=== PATIENT | male | born 1955 | race Caucasian/White ===

== ENCOUNTER 2020-02-11 07:25 | Outpatient (REF) | payer OTHER, SELFPAY ==
[2020-02-11 08:21] LABS: Basophils Absolute Auto 0.1 X10*3/uL (0.0-0.2); Basophils Percent Auto 1.5 % (0-2); Eosinophils Absolute Auto 0.2 X10*3/uL (0.0-0.4); Eosinophils Percent Auto 3.6 % (0-4); Hematocrit 40.9 % (42-52); Hemoglobin 14.1 g/dl (14.0-18.0); Imm Gran Abs Auto 0.04 X10*3/uL (0.00-0.03); Imm Gran Pct Auto 0.7 % (0.0-0.4); Lymphocytes Absolute Auto 1.8 X10*3/uL (1.2-4.9); Lymphocytes Percent Auto 31.2 % (20-40); MANUAL DIFF FLAG NO; Mean Corpuscular HGB Conc 34.5 g/dl (31.0-36.0); Mean Platelet Volume 10.4 fL (9.4-12.4); Monocytes Absolute Auto 0.4 X10*3/uL (0.1-1.2); Monocytes Percent Auto 6.9 % (2-11); Neutrophils Absolute Auto 3.3 X10*3/uL (2.0-8.3); Neutrophils Percent Auto 56.1 % (45-73); Platelet Count 244 X10*3/uL (160-400); Red Cell Distribution Width 13.6 % (11.0-16.0); White Blood Count 5.9 X10*3/uL (4.8-10.8)
[2020-02-11 08:44] LABS: Alanine Aminotransferase 25 U/L (0-40); Albumin Level 4.2 g/dL (3.5-5.0); Alkaline Phosphatase 60 U/L (39-117); Anion Gap 10 (12-20); Aspartate Amino Transferase 23 U/L (5-37); Bilirubin Total 1.3 mg/dL (0.0-1.0); Blood Urea Nitrogen 14 mg/dL (9-16); Calcium 8.9 mg/dL (8.4-10.2); Carbon Dioxide 31 mmol/L (22-29); Chloride 106 mmol/L (96-108); Cholesterol 148 mg/dL; Estimated Glomerular Filt Rate > 60; Glucose Fasting 114 mg/dL (60-99); HDL Cholesterol 45 mg/dL; LDL Cholesterol Calculated 74 mg/dl; Potassium 4.5 mmol/l (3.3-5.1); Sodium 142 mmol/L (135-145); Total Protein 6.9 g/dL (6.5-8.0); Triglycerides 149 mg/dL
[2020-02-11 08:45] LABS: B Type Natriuretic Peptide 197 pg/mL (<100)
[2020-02-11 09:08] LABS: T4 Thyroxine 6.4 ug/dL (4.5-12.0); Thyroid Stimulating Hormone 0.45 mIU/mL (0.32-4.0)
[2020-02-11 09:39] LABS: Prostate Specific Antigen Scr 0.87 ng/mL (<0.05-4.0)
[2020-02-13 09:21] LABS: Folate 12.1 ng/mL (> or = 4.0); Vitamin B12 403 pg/mL (200-900)
== END 2020-02-11 07:26 | disposition home or self-care (01) ==
LOC: HO.LAB 07:25
PROVIDERS: PCP Internal Medicine; Visit Provider Internal Medicine
DX: I25.10 Atherosclerotic heart disease of native coronary artery without angina pectoris (principal); J44.9 Chronic obstructive pulmonary disease, unspecified; I10 Essential (primary) hypertension; E78.00 Pure hypercholesterolemia, unspecified; E66.3 Overweight; G25.0 Essential tremor; R73.01 Impaired fasting glucose
CPT/HCPCS: 36415; 80053; 80061; 82607; 82746; 83735; 83880; 84153; 84436; 84443; 85025

== ENCOUNTER → 2020-02-14 08:18 | Outpatient (BNVA) | payer OTHER, SELFPAY | PROVIDERS: PCP Internal Medicine; Visit Provider Internal Medicine | DX: Z95.2 Presence of prosthetic heart valve (principal); Z51.81 Encounter for therapeutic drug level monitoring; Z79.01 Long term (current) use of anticoagulants | CPT/HCPCS: 93793 ==

== ENCOUNTER → 2020-02-21 08:07 | Outpatient (BNVA) | payer OTHER, SELFPAY | PROVIDERS: PCP Internal Medicine; Visit Provider Internal Medicine | DX: Z95.2 Presence of prosthetic heart valve (principal); Z51.81 Encounter for therapeutic drug level monitoring; Z79.01 Long term (current) use of anticoagulants | CPT/HCPCS: Q3014 ==

== ENCOUNTER → 2020-02-28 15:15 | Outpatient (BNVA) | payer OTHER, SELFPAY | PROVIDERS: PCP Internal Medicine; Visit Provider Internal Medicine | DX: Z95.2 Presence of prosthetic heart valve (principal); Z51.81 Encounter for therapeutic drug level monitoring; Z79.01 Long term (current) use of anticoagulants | CPT/HCPCS: 99211 ==

== ENCOUNTER 2020-03-04 08:39 | Outpatient (REF) | payer OTHER, SELFPAY | END 2020-03-04 08:40 | disposition home or self-care (01) | LOC: HO.LAB 08:39 | PROVIDERS: PCP Internal Medicine; Visit Provider Internal Medicine | DX: Z20.828 Contact with and (suspected) exposure to other viral communicable diseases (principal) | CPT/HCPCS: 87635 ==

== ENCOUNTER → 2020-03-13 11:16 | Outpatient (BNVA) | payer OTHER, SELFPAY | PROVIDERS: PCP Internal Medicine; Visit Provider Internal Medicine | DX: Z76.89 Persons encountering health services in other specified circumstances (principal) ==

== ENCOUNTER → 2020-03-20 09:04 | Outpatient (BNVA) | payer OTHER, SELFPAY | PROVIDERS: PCP Internal Medicine; Visit Provider Internal Medicine | DX: Z95.2 Presence of prosthetic heart valve (principal); Z51.81 Encounter for therapeutic drug level monitoring; Z79.01 Long term (current) use of anticoagulants | CPT/HCPCS: Q3014 ==

== ENCOUNTER → 2020-03-27 10:07 | Outpatient (BNVA) | payer OTHER, SELFPAY | PROVIDERS: PCP Internal Medicine; Visit Provider Internal Medicine | DX: Z76.89 Persons encountering health services in other specified circumstances (principal) ==

== ENCOUNTER → 2020-04-03 15:37 | Outpatient (BNVA) | payer OTHER, SELFPAY | PROVIDERS: PCP Internal Medicine; Visit Provider Internal Medicine | DX: Z95.2 Presence of prosthetic heart valve (principal); Z51.81 Encounter for therapeutic drug level monitoring; Z79.01 Long term (current) use of anticoagulants | CPT/HCPCS: Q3014 ==

== ENCOUNTER → 2020-04-10 11:37 | Outpatient (BNVA) | payer OTHER, SELFPAY | PROVIDERS: PCP Internal Medicine; Visit Provider Internal Medicine | DX: Z13.89 Encounter for screening for other disorder (principal) | CPT/HCPCS: Q3014 ==

== ENCOUNTER → 2020-04-17 09:03 | Outpatient (BNVA) | payer OTHER, SELFPAY | PROVIDERS: PCP Internal Medicine; Visit Provider Internal Medicine | DX: Z76.89 Persons encountering health services in other specified circumstances (principal) ==

== ENCOUNTER → 2020-04-24 12:19 | Outpatient (BNVA) | payer OTHER, SELFPAY | PROVIDERS: PCP Internal Medicine; Visit Provider Internal Medicine | DX: Z95.2 Presence of prosthetic heart valve (principal); Z51.81 Encounter for therapeutic drug level monitoring; Z79.01 Long term (current) use of anticoagulants | CPT/HCPCS: 99211 ==

== ENCOUNTER → 2020-05-01 08:41 | Outpatient (BNVA) | payer OTHER, SELFPAY | PROVIDERS: PCP Internal Medicine; Visit Provider Internal Medicine | DX: Z76.89 Persons encountering health services in other specified circumstances (principal) ==

== ENCOUNTER → 2020-05-08 16:00 | Outpatient (BNVA) | payer OTHER, SELFPAY | PROVIDERS: PCP Internal Medicine; Visit Provider Internal Medicine | DX: Z76.89 Persons encountering health services in other specified circumstances (principal) ==

== ENCOUNTER → 2020-05-15 08:21 | Outpatient (BNVA) | payer OTHER, SELFPAY | PROVIDERS: PCP Internal Medicine; Visit Provider Internal Medicine | DX: Z76.89 Persons encountering health services in other specified circumstances (principal) ==

== ENCOUNTER → 2020-05-22 08:53 | Outpatient (BNVA) | payer OTHER, SELFPAY | PROVIDERS: PCP Internal Medicine; Visit Provider Internal Medicine | DX: Z76.89 Persons encountering health services in other specified circumstances (principal) ==

== ENCOUNTER → 2020-05-28 15:28 | Outpatient (BNVA) | payer OTHER, SELFPAY | PROVIDERS: PCP Internal Medicine; Visit Provider Hospitalist ==

== ENCOUNTER → 2020-05-29 09:15 | Outpatient (BNVA) | payer OTHER, SELFPAY | PROVIDERS: PCP Internal Medicine; Visit Provider Internal Medicine | DX: Z95.2 Presence of prosthetic heart valve (principal); Z51.81 Encounter for therapeutic drug level monitoring; Z79.01 Long term (current) use of anticoagulants | CPT/HCPCS: Q3014 ==

== ENCOUNTER → 2020-06-05 08:46 | Outpatient (BNVA) | payer OTHER, SELFPAY | PROVIDERS: PCP Internal Medicine; Visit Provider Internal Medicine | DX: Z95.2 Presence of prosthetic heart valve (principal); Z51.81 Encounter for therapeutic drug level monitoring; Z79.01 Long term (current) use of anticoagulants | CPT/HCPCS: Q3014 ==

== ENCOUNTER → 2020-06-12 08:31 | Outpatient (BNVA) | payer OTHER, SELFPAY | PROVIDERS: PCP Internal Medicine; Visit Provider Internal Medicine | DX: Z95.2 Presence of prosthetic heart valve (principal); Z51.81 Encounter for therapeutic drug level monitoring; Z79.01 Long term (current) use of anticoagulants | CPT/HCPCS: Q3014 ==

== ENCOUNTER 2020-06-13 | Outpatient (REF) | payer OTHER, SELFPAY | END 2020-06-13 00:01 | disposition home or self-care (01) | LOC: HO.VC | PROVIDERS: Visit Provider Internal Medicine | DX: Z23 Encounter for immunization (principal) | CPT/HCPCS: 0011A ==

== ENCOUNTER → 2020-06-19 08:37 | Outpatient (BNVA) | payer OTHER, SELFPAY | PROVIDERS: PCP Internal Medicine; Visit Provider Internal Medicine | DX: Z95.2 Presence of prosthetic heart valve (principal); Z51.81 Encounter for therapeutic drug level monitoring; Z79.01 Long term (current) use of anticoagulants | CPT/HCPCS: 99211 ==

== ENCOUNTER → 2020-06-26 11:26 | Outpatient (BNVA) | payer OTHER, SELFPAY | PROVIDERS: PCP Internal Medicine; Visit Provider Internal Medicine | DX: Z95.2 Presence of prosthetic heart valve (principal); Z51.81 Encounter for therapeutic drug level monitoring; Z79.01 Long term (current) use of anticoagulants | CPT/HCPCS: Q3014 ==

== ENCOUNTER → 2020-07-03 08:30 | Outpatient (BNVA) | payer OTHER, SELFPAY | PROVIDERS: PCP Internal Medicine; Visit Provider Internal Medicine ==

== ENCOUNTER 2020-07-10 | Outpatient (REF) | payer OTHER, SELFPAY | END 2020-07-10 00:01 | disposition home or self-care (01) | LOC: HO.VC | PROVIDERS: Visit Provider Internal Medicine | DX: Z23 Encounter for immunization (principal) | CPT/HCPCS: 0012A ==

== ENCOUNTER → 2020-07-11 14:29 | Outpatient (BNVA) | payer OTHER, SELFPAY | PROVIDERS: PCP Internal Medicine; Visit Provider Internal Medicine | DX: Z95.2 Presence of prosthetic heart valve (principal); Z51.81 Encounter for therapeutic drug level monitoring; Z79.01 Long term (current) use of anticoagulants | CPT/HCPCS: Q3014 ==

== ENCOUNTER → 2020-07-17 14:02 | Outpatient (BNVA) | payer OTHER, SELFPAY | PROVIDERS: PCP Internal Medicine; Visit Provider Internal Medicine ==

== ENCOUNTER → 2020-07-24 10:09 | Outpatient (BNVA) | payer OTHER, SELFPAY | PROVIDERS: PCP Internal Medicine; Visit Provider Internal Medicine ==

== ENCOUNTER → 2020-07-31 09:33 | Outpatient (BNVA) | payer OTHER, SELFPAY | PROVIDERS: PCP Internal Medicine; Visit Provider Internal Medicine ==

== ENCOUNTER → 2020-08-07 11:39 | Outpatient (BNVA) | payer OTHER, SELFPAY | PROVIDERS: PCP Internal Medicine; Visit Provider Internal Medicine ==

== ENCOUNTER → 2020-08-13 14:54 | Outpatient (BNVA) | payer OTHER, SELFPAY | PROVIDERS: PCP Internal Medicine; Visit Provider Internal Medicine | DX: I35.8 Other nonrheumatic aortic valve disorders (principal); Z79.01 Long term (current) use of anticoagulants; Z51.81 Encounter for therapeutic drug level monitoring | CPT/HCPCS: 85610; 99211 ==

== ENCOUNTER → 2020-08-21 09:43 | Outpatient (BNVA) | payer OTHER, SELFPAY | PROVIDERS: PCP Internal Medicine; Visit Provider Internal Medicine ==

== ENCOUNTER → 2020-08-28 12:00 | Outpatient (BNVA) | payer OTHER, SELFPAY | PROVIDERS: PCP Internal Medicine; Visit Provider Internal Medicine ==

== ENCOUNTER → 2020-09-04 10:33 | Outpatient (BNVA) | payer OTHER, SELFPAY | PROVIDERS: PCP Internal Medicine; Visit Provider Internal Medicine ==

== ENCOUNTER → 2020-09-11 08:13 | Outpatient (BNVA) | payer OTHER, SELFPAY | PROVIDERS: PCP Internal Medicine; Visit Provider Internal Medicine ==

== ENCOUNTER → 2020-09-18 11:14 | Outpatient (BNVA) | payer OTHER, SELFPAY | PROVIDERS: PCP Internal Medicine; Visit Provider Internal Medicine ==

== ENCOUNTER 2020-09-22 07:57 | Outpatient (REF) | payer OTHER, SELFPAY ==
[2020-09-22 08:24] LABS: MANUAL DIFF FLAG NO
[2020-09-22 08:48] LABS: Alanine Aminotransferase 24 U/L (0-40); Albumin Level 4.2 g/dL (3.5-5.0); Alkaline Phosphatase 66 U/L (39-117); Anion Gap 13 (12-20); Aspartate Amino Transferase 21 U/L (5-37); Bilirubin Total 1.4 mg/dL (0.0-1.0); Blood Urea Nitrogen 17 mg/dL (9-16); Calcium 9.2 mg/dL (8.4-10.2); Carbon Dioxide 28 mmol/L (22-29); Chloride 103 mmol/L (96-108); Cholesterol 146 mg/dL; Estimated Glomerular Filt Rate > 60; Glucose Random 114 mg/dL (60-115); HDL Cholesterol 42 mg/dL; LDL Cholesterol Calculated 75 mg/dl; Potassium 4.2 mmol/L (3.3-5.1); Sodium 140 mmol/L (135-145); Total Protein 7.1 g/dL (6.5-8.0); Triglycerides 146 mg/dL
[2020-09-22 08:50] LABS: B Type Natriuretic Peptide 189 pg/mL (<100)
[2020-09-22 09:02] LABS: Basophils Absolute Auto 0.1 X10*3/uL (0.0-0.2); Basophils Percent Auto 1.6 % (0-2); Eosinophils Absolute Auto 0.3 X10*3/uL (0.0-0.4); Eosinophils Percent Auto 4.2 % (0-4); Hematocrit 40.7 % (42-52); Hemoglobin 14.3 g/dl (14.0-18.0); Imm Gran Abs Auto 0.02 X10*3/uL (0.00-0.03); Imm Gran Pct Auto 0.3 % (0.0-0.4); Lymphocytes Percent Auto 31.7 % (20-40); Mean Corpuscular HGB Conc 35.1 g/dl (31.0-36.0); Mean Corpuscular Hemoglobin 31.9 pg (27.0-33.0); Mean Corpuscular Volume 90.8 fL (80-98); Mean Platelet Volume 10.7 fL (9.4-12.4); Monocytes Absolute Auto 0.5 X10*3/uL (0.1-1.2); Monocytes Percent Auto 7.5 % (2-11); Neutrophils Absolute Auto 3.5 X10*3/uL (2.0-8.3); Neutrophils Percent Auto 54.7 % (45-73); Platelet Count 251 X10*3/uL (160-400); Red Blood Count 4.48 X10*6/uL (4.60-5.80); Red Cell Distribution Width 13.8 % (11.0-16.0); White Blood Count 6.4 X10*3/uL (4.8-10.8)
[2020-09-22 09:13] LABS: Free T4 (Free Thyroxine) 0.92 ng/dL (0.71-1.85); Thyroid Stimulating Hormone 0.32 uIU/mL (0.32-4.0)
[2020-09-24 04:19] LABS: Vitamin B12 509 pg/mL (200-900)
== END 2020-09-22 07:58 | disposition home or self-care (01) ==
LOC: HO.LAB 07:57
PROVIDERS: PCP Internal Medicine; Visit Provider Internal Medicine
DX: I10 Essential (primary) hypertension (principal); I25.10 Atherosclerotic heart disease of native coronary artery without angina pectoris; E78.00 Pure hypercholesterolemia, unspecified; Z95.2 Presence of prosthetic heart valve
CPT/HCPCS: 36415; 80053; 80061; 82306; 82607; 82746; 83880; 84439; 84443; 85025

== ENCOUNTER → 2020-09-25 09:35 | Outpatient (BNVA) | payer OTHER, SELFPAY | PROVIDERS: PCP Internal Medicine; Visit Provider Internal Medicine ==

== ENCOUNTER → 2020-10-02 08:38 | Outpatient (BNVA) | payer OTHER, SELFPAY | PROVIDERS: PCP Internal Medicine; Visit Provider Internal Medicine ==

== ENCOUNTER → 2020-10-09 09:33 | Outpatient (BNVA) | payer OTHER, SELFPAY | PROVIDERS: PCP Internal Medicine; Visit Provider Internal Medicine ==

== ENCOUNTER → 2020-10-16 08:59 | Outpatient (BNVA) | payer OTHER, SELFPAY | PROVIDERS: PCP Internal Medicine; Visit Provider Internal Medicine ==

== ENCOUNTER → 2020-10-23 09:27 | Outpatient (BNVA) | payer OTHER, SELFPAY | PROVIDERS: PCP Internal Medicine; Visit Provider Internal Medicine ==

== ENCOUNTER → 2020-10-30 12:00 | Outpatient (BNVA) | payer OTHER, SELFPAY | PROVIDERS: PCP Internal Medicine; Visit Provider Internal Medicine ==

== ENCOUNTER → 2020-11-06 08:28 | Outpatient (BNVA) | payer OTHER, SELFPAY | PROVIDERS: PCP Internal Medicine; Visit Provider Internal Medicine ==

== ENCOUNTER → 2020-11-13 09:14 | Outpatient (BNVA) | payer OTHER, SELFPAY | PROVIDERS: PCP Internal Medicine; Visit Provider Internal Medicine ==

== ENCOUNTER → 2020-11-20 09:02 | Outpatient (BNVA) | payer OTHER, SELFPAY | PROVIDERS: PCP Internal Medicine; Visit Provider Internal Medicine ==

== ENCOUNTER → 2020-11-27 11:25 | Outpatient (BNVA) | payer OTHER, SELFPAY | PROVIDERS: PCP Internal Medicine; Visit Provider Internal Medicine ==

== ENCOUNTER → 2020-12-04 10:24 | Outpatient (BNVA) | payer OTHER, SELFPAY | PROVIDERS: PCP Internal Medicine; Visit Provider Internal Medicine ==

== ENCOUNTER → 2020-12-11 08:46 | Outpatient (BNVA) | payer OTHER, SELFPAY | PROVIDERS: PCP Internal Medicine; Visit Provider Internal Medicine ==

== ENCOUNTER → 2020-12-18 09:13 | Outpatient (BNVA) | payer OTHER, SELFPAY | PROVIDERS: PCP Internal Medicine; Visit Provider Internal Medicine ==

== ENCOUNTER → 2020-12-25 09:46 | Outpatient (BNVA) | payer OTHER, SELFPAY | PROVIDERS: PCP Internal Medicine; Visit Provider Internal Medicine ==

== ENCOUNTER → 2021-01-01 11:37 | Outpatient (BNVA) | payer OTHER, SELFPAY | PROVIDERS: PCP Internal Medicine; Visit Provider Internal Medicine ==

== ENCOUNTER → 2021-01-08 09:14 | Outpatient (BNVA) | payer OTHER, SELFPAY | PROVIDERS: PCP Internal Medicine; Visit Provider Internal Medicine ==

== ENCOUNTER → 2021-01-15 09:43 | Outpatient (BNVA) | payer OTHER, SELFPAY | PROVIDERS: PCP Internal Medicine; Visit Provider Internal Medicine ==

== ENCOUNTER → 2021-01-22 08:50 | Outpatient (BNVA) | payer OTHER, SELFPAY | PROVIDERS: PCP Internal Medicine; Visit Provider Internal Medicine | DX: Z95.2 Presence of prosthetic heart valve (principal) | CPT/HCPCS: Q3014 ==

== ENCOUNTER → 2021-01-29 11:24 | Outpatient (BNVA) | payer OTHER, SELFPAY | PROVIDERS: PCP Internal Medicine; Visit Provider Internal Medicine ==

== ENCOUNTER → 2021-02-05 11:48 | Outpatient (BNVA) | payer OTHER, SELFPAY | PROVIDERS: PCP Internal Medicine; Visit Provider Internal Medicine ==

== ENCOUNTER → 2021-02-12 09:10 | Outpatient (BNVA) | payer OTHER, SELFPAY | PROVIDERS: PCP Internal Medicine; Visit Provider Internal Medicine ==

== ENCOUNTER → 2021-02-19 15:33 | Outpatient (BNVA) | payer OTHER, SELFPAY | PROVIDERS: PCP Internal Medicine; Visit Provider Internal Medicine ==

== ENCOUNTER 2021-02-23 10:26 | Outpatient (REF) | payer OTHER, SELFPAY ==
[2021-02-23 11:48] LABS: Uric Acid 8.1 mg/dL (3.4-7.0)
[2021-02-23 12:10] LABS: Ferritin 144 ng/mL (20-250); Free T4 (Free Thyroxine) 0.93 ng/dL (0.71-1.85); Prostate Specific Antigen Scr 0.91 ng/mL (<0.05-4.0); Vitamin D 25-OH Total 28.9 ng/mL (>30)
== END 2021-02-23 10:27 | disposition home or self-care (01) ==
LOC: HO.LAB 10:26
PROVIDERS: PCP Internal Medicine; Visit Provider Podiatrist
DX: I25.10 Atherosclerotic heart disease of native coronary artery without angina pectoris (principal); M10.9 Gout, unspecified; Z12.5 Encounter for screening for malignant neoplasm of prostate
CPT/HCPCS: 36415; 82306; 82728; 84153; 84439; 84443; 84550

== ENCOUNTER → 2021-02-26 09:56 | Outpatient (BNVA) | payer OTHER, SELFPAY | PROVIDERS: PCP Internal Medicine; Visit Provider Internal Medicine | DX: Z95.2 Presence of prosthetic heart valve (principal) | CPT/HCPCS: Q3014 ==

== ENCOUNTER → 2021-03-12 10:06 | Outpatient (BNVA) | payer OTHER, SELFPAY | PROVIDERS: PCP Internal Medicine; Visit Provider Internal Medicine | DX: Z95.2 Presence of prosthetic heart valve (principal); Z51.81 Encounter for therapeutic drug level monitoring; Z79.01 Long term (current) use of anticoagulants | CPT/HCPCS: Q3014 ==

== ENCOUNTER → 2021-03-19 08:59 | Outpatient (BNVA) | payer OTHER, SELFPAY | PROVIDERS: PCP Internal Medicine; Visit Provider Internal Medicine ==

== ENCOUNTER → 2021-03-26 11:52 | Outpatient (BNVA) | payer OTHER, SELFPAY | PROVIDERS: PCP Internal Medicine; Visit Provider Internal Medicine ==

== ENCOUNTER 2021-03-30 07:43 | Outpatient (REF) | payer OTHER, SELFPAY ==
[2021-03-30 07:50] LABS: MANUAL DIFF FLAG NO
[2021-03-30 08:54] LABS: Basophils Absolute Auto 0.1 X10*3/uL (0.0-0.2); Eosinophils Absolute Auto 0.2 X10*3/uL (0.0-0.4); Eosinophils Percent Auto 2.9 % (0-4); Estimated Average Glucose 105 mg/dL; Hematocrit 39.8 % (42.0-52.0); Hemoglobin 13.7 g/dl (14.0-18.0); Hemoglobin A1c % 5.3 %; Imm Gran Abs Auto 0.02 X10*3/uL (0.00-0.03); Imm Gran Pct Auto 0.4 % (0.0-0.4); Immature Retic Fraction 8.1 % (2.3-13.4); Lymphocytes Absolute Auto 1.9 X10*3/uL (1.2-4.9); Lymphocytes Percent Auto 36.3 % (20-40); Mean Corpuscular HGB Conc 34.4 g/dl (31.0-36.0); Mean Corpuscular Hemoglobin 31.7 pg (27.0-33.0); Mean Corpuscular Volume 92.1 fL (80.0-98.0); Mean Platelet Volume 10.7 fL (9.4-12.4); Monocytes Absolute Auto 0.4 X10*3/uL (0.1-1.2); NRBC Pct Auto 0.4 /100WBC (0.0-0.2); Neutrophils Absolute Auto 2.7 x10*3/uL (2.0-8.3); Neutrophils Percent Auto 51.4 % (45-73); Platelet Count 234 X10*3/uL (160-400); Red Blood Count 4.32 X10*6/uL (4.60-5.80); Red Cell Distribution Width 14.2 % (11.0-16.0); Retic HGB Equivalent 34.5 pg (30.0-35.0); Reticulocytes Absolute 0.085 X10*6/uL (0.026-0.095); White Blood Count 5.2 X10*3/uL (4.8-10.8)
[2021-03-30 09:11] LABS: Alanine Aminotransferase 18 U/L (0-40); Albumin Level 4.1 g/dL (3.5-5.0); Alkaline Phosphatase 62 U/L (39-117); Anion Gap 12 (12-20); Aspartate Amino Transferase 18 U/L (5-37); Bilirubin Total 1.8 mg/dL (0.0-1.0); Blood Urea Nitrogen 16 mg/dL (9-16); Carbon Dioxide 30 mmol/L (22-29); Chloride 102 mmol/L (96-108); Cholesterol 145 mg/dL; Estimated Glomerular Filt Rate > 60; Glucose Random 109 mg/dL (60-115); HDL Cholesterol 41 mg/dL; Iron 82 mcg/dL (45-160); LDL Cholesterol Calculated 73 mg/dl; Percent Iron Saturation 27 % (15-50); Potassium 4.5 mmol/L (3.3-5.1); Sodium 139 mmol/L (135-145); Total Iron Binding Capacity 302 mcg/dL (228-428); Total Protein 6.6 g/dL (6.5-8.0); Triglycerides 159 mg/dL; Unsaturated Iron Binding 220 ug/dL
[2021-04-01 05:02] LABS: Folate 11.8 ng/mL (> or = 4.0); Vitamin B12 388 pg/mL (200-900)
== END 2021-03-30 07:44 | disposition home or self-care (01) ==
LOC: HO.LAB 07:43
PROVIDERS: PCP Internal Medicine; Visit Provider Internal Medicine
DX: I25.10 Atherosclerotic heart disease of native coronary artery without angina pectoris (principal); E78.00 Pure hypercholesterolemia, unspecified
CPT/HCPCS: 36415; 80053; 80061; 82607; 82746; 83036; 83540; 85025; 85045

== ENCOUNTER → 2021-04-02 11:15 | Outpatient (BNVA) | payer OTHER, SELFPAY | PROVIDERS: PCP Internal Medicine; Visit Provider Internal Medicine ==

== ENCOUNTER → 2021-04-16 10:48 | Outpatient (BNVA) | payer OTHER, SELFPAY | PROVIDERS: PCP Internal Medicine; Visit Provider Internal Medicine ==

== ENCOUNTER → 2021-04-23 09:57 | Outpatient (BNVA) | payer OTHER, SELFPAY | PROVIDERS: PCP Internal Medicine; Visit Provider Internal Medicine ==

== ENCOUNTER → 2021-04-30 13:10 | Outpatient (BNVA) | payer OTHER, SELFPAY | PROVIDERS: PCP Internal Medicine; Visit Provider Internal Medicine ==

== ENCOUNTER → 2021-05-07 08:59 | Outpatient (BNVA) | payer OTHER, SELFPAY | PROVIDERS: PCP Internal Medicine; Visit Provider Internal Medicine | DX: Z95.2 Presence of prosthetic heart valve (principal); Z51.81 Encounter for therapeutic drug level monitoring; Z79.01 Long term (current) use of anticoagulants | CPT/HCPCS: Q3014 ==

== ENCOUNTER → 2021-05-14 16:15 | Outpatient (BNVA) | payer OTHER, SELFPAY | PROVIDERS: PCP Internal Medicine; Visit Provider Internal Medicine | DX: Z95.2 Presence of prosthetic heart valve (principal); Z79.01 Long term (current) use of anticoagulants; Z51.81 Encounter for therapeutic drug level monitoring | CPT/HCPCS: Q3014 ==

== ENCOUNTER → 2021-05-21 08:52 | Outpatient (BNVA) | payer OTHER, SELFPAY | PROVIDERS: PCP Internal Medicine; Visit Provider Internal Medicine ==

== ENCOUNTER → 2021-05-28 09:05 | Outpatient (BNVA) | payer OTHER, SELFPAY | PROVIDERS: PCP Internal Medicine; Visit Provider Internal Medicine ==

== ENCOUNTER → 2021-06-03 14:23 | Outpatient (BNVA) | payer OTHER, SELFPAY | PROVIDERS: PCP Internal Medicine; Visit Provider Physician Assistant Medical | DX: S16.1XXA Strain of muscle, fascia and tendon at neck level, initial encounter (principal); S46.819A Strain of other muscles, fascia and tendons at shoulder and upper arm level, unspecified arm, initial encounter; S06.9X0A Unspecified intracranial injury without loss of consciousness, initial encounter; V43.02XA Car driver injured in collision with other type car in nontraffic accident, initial encounter | CPT/HCPCS: 70450; 99203 ==

== ENCOUNTER → 2021-06-04 08:43 | Outpatient (BNVA) | payer OTHER, SELFPAY | PROVIDERS: PCP Internal Medicine; Visit Provider Internal Medicine ==

== ENCOUNTER → 2021-06-05 10:37 | Outpatient (BNVA) | payer OTHER, SELFPAY | PROVIDERS: PCP Internal Medicine; Visit Provider Physician Assistant Medical | DX: S06.0X0A Concussion without loss of consciousness, initial encounter (principal); V89.0XXA Person injured in unspecified motor-vehicle accident, nontraffic, initial encounter | CPT/HCPCS: 99213 ==

== ENCOUNTER → 2021-06-13 09:39 | Outpatient (BNVA) | payer OTHER, SELFPAY | PROVIDERS: PCP Internal Medicine; Visit Provider Internal Medicine ==

== ENCOUNTER → 2021-06-18 09:45 | Outpatient (BNVA) | payer OTHER, SELFPAY | PROVIDERS: PCP Internal Medicine; Visit Provider Internal Medicine ==

== ENCOUNTER → 2021-06-25 12:24 | Outpatient (BNVA) | payer OTHER, SELFPAY | PROVIDERS: PCP Internal Medicine; Visit Provider Internal Medicine ==

== ENCOUNTER → 2021-07-02 11:05 | Outpatient (BNVA) | payer OTHER, SELFPAY | PROVIDERS: PCP Internal Medicine; Visit Provider Internal Medicine | DX: Z95.2 Presence of prosthetic heart valve (principal); Z51.81 Encounter for therapeutic drug level monitoring; Z79.01 Long term (current) use of anticoagulants | CPT/HCPCS: Q3014 ==

== ENCOUNTER → 2021-07-09 08:33 | Outpatient (BNVA) | payer OTHER, SELFPAY | PROVIDERS: PCP Internal Medicine; Visit Provider Internal Medicine | DX: Z95.2 Presence of prosthetic heart valve (principal); Z51.81 Encounter for therapeutic drug level monitoring; Z79.01 Long term (current) use of anticoagulants | CPT/HCPCS: Q3014 ==

== ENCOUNTER → 2021-07-16 08:37 | Outpatient (BNVA) | payer OTHER, SELFPAY | PROVIDERS: PCP Internal Medicine; Visit Provider Internal Medicine ==

== ENCOUNTER → 2021-07-23 12:36 | Outpatient (BNVA) | payer OTHER, SELFPAY | PROVIDERS: PCP Internal Medicine; Visit Provider Internal Medicine | DX: Z13.89 Encounter for screening for other disorder (principal) ==

== ENCOUNTER → 2021-07-30 10:34 | Outpatient (BNVA) | payer OTHER, SELFPAY | PROVIDERS: PCP Internal Medicine; Visit Provider Internal Medicine | DX: Z95.2 Presence of prosthetic heart valve (principal); Z51.81 Encounter for therapeutic drug level monitoring; Z79.01 Long term (current) use of anticoagulants | CPT/HCPCS: Q3014 ==

== ENCOUNTER → 2021-08-07 15:22 | Outpatient (BNVA) | payer OTHER, SELFPAY | PROVIDERS: PCP Internal Medicine; Visit Provider Internal Medicine | DX: Z13.89 Encounter for screening for other disorder (principal) ==

== ENCOUNTER → 2021-08-13 08:32 | Outpatient (BNVA) | payer OTHER, SELFPAY | PROVIDERS: PCP Internal Medicine; Visit Provider Internal Medicine | DX: Z13.89 Encounter for screening for other disorder (principal) ==

== ENCOUNTER → 2021-08-20 11:15 | Outpatient (BNVA) | payer OTHER, SELFPAY | PROVIDERS: PCP Internal Medicine; Visit Provider Internal Medicine | DX: Z13.89 Encounter for screening for other disorder (principal) ==

== ENCOUNTER → 2021-08-27 12:54 | Outpatient (BNVA) | payer OTHER, SELFPAY | PROVIDERS: PCP Internal Medicine; Visit Provider Internal Medicine | DX: Z13.89 Encounter for screening for other disorder (principal) ==

== ENCOUNTER → 2021-09-03 10:30 | Outpatient (BNVA) | payer OTHER, SELFPAY | PROVIDERS: PCP Internal Medicine; Visit Provider Internal Medicine | DX: Z13.89 Encounter for screening for other disorder (principal) ==

== ENCOUNTER → 2021-09-10 12:46 | Outpatient (BNVA) | payer OTHER, SELFPAY | PROVIDERS: PCP Internal Medicine; Visit Provider Internal Medicine | DX: Z13.89 Encounter for screening for other disorder (principal) ==

== ENCOUNTER → 2021-09-17 08:20 | Outpatient (BNVA) | payer OTHER, MEDICARE, SELFPAY | PROVIDERS: PCP Internal Medicine; Visit Provider Internal Medicine | DX: Z13.89 Encounter for screening for other disorder (principal) ==

== ENCOUNTER → 2021-09-20 14:08 | Outpatient (BNVA) | payer OTHER, MEDICARE, SELFPAY | PROVIDERS: PCP Internal Medicine; Visit Provider Nurse Practitioner Family | DX: G25.0 Essential tremor (principal) ==

== ENCOUNTER → 2021-09-24 10:05 | Outpatient (BNVA) | payer OTHER, MEDICARE, SELFPAY | PROVIDERS: PCP Internal Medicine; Visit Provider Internal Medicine | DX: Z13.89 Encounter for screening for other disorder (principal) ==

== ENCOUNTER → 2021-10-01 14:20 | Outpatient (BNVA) | payer OTHER, MEDICARE, SELFPAY | PROVIDERS: PCP Internal Medicine; Visit Provider Internal Medicine | DX: Z95.2 Presence of prosthetic heart valve (principal); Z79.01 Long term (current) use of anticoagulants; Z51.81 Encounter for therapeutic drug level monitoring | CPT/HCPCS: 85610; 99211 ==

== ENCOUNTER → 2021-10-08 08:50 | Outpatient (BNVA) | payer OTHER, MEDICARE, SELFPAY | PROVIDERS: PCP Internal Medicine; Visit Provider Internal Medicine | DX: Z13.89 Encounter for screening for other disorder (principal) ==

== ENCOUNTER → 2021-10-15 09:42 | Outpatient (BNVA) | payer OTHER, MEDICARE, SELFPAY | PROVIDERS: PCP Internal Medicine; Visit Provider Internal Medicine | DX: Z79.01 Long term (current) use of anticoagulants (principal) ==

== ENCOUNTER → 2021-10-29 10:11 | Outpatient (BNVA) | payer OTHER, MEDICARE, SELFPAY | PROVIDERS: PCP Internal Medicine; Visit Provider Internal Medicine | DX: Z95.2 Presence of prosthetic heart valve (principal); Z51.81 Encounter for therapeutic drug level monitoring; Z79.01 Long term (current) use of anticoagulants | CPT/HCPCS: Q3014 ==

== ENCOUNTER 2022-03-26 07:41 | Outpatient (REF) | payer OTHER, MEDICARE, SELFPAY ==
[2022-03-26 07:52] LABS: MANUAL DIFF FLAG NO
[2022-03-26 08:30] LABS: Basophils Absolute Auto 0.2 X10*3/uL (0.0-0.2); Basophils Percent Auto 2.2 % (0-2); Eosinophils Absolute Auto 0.3 X10*3/uL (0.0-0.4); Eosinophils Percent Auto 4.6 % (0-4); Hematocrit 40.1 % (42.0-52.0); Hemoglobin 13.8 g/dl (14.0-18.0); Imm Gran Abs Auto 0.03 X10*3/uL (0.00-0.03); Imm Gran Pct Auto 0.4 % (0.0-0.4); Lymphocytes Absolute Auto 1.9 X10*3/uL (1.2-4.9); Lymphocytes Percent Auto 27.7 % (20-40); Mean Corpuscular HGB Conc 34.4 g/dl (31.0-36.0); Mean Platelet Volume 10.3 fL (9.4-12.4); Monocytes Absolute Auto 0.5 X10*3/uL (0.1-1.2); Monocytes Percent Auto 7.1 % (2-11); Neutrophils Absolute Auto 3.9 x10*3/uL (2.0-8.3); Platelet Count 286 X10*3/uL (160-400); Red Blood Count 4.31 X10*6/uL (4.60-5.80); White Blood Count 6.7 X10*3/uL (4.8-10.8)
[2022-03-26 08:53] LABS: Alanine Aminotransferase 8 U/L (0-40); Albumin Level 4.5 g/dL (3.5-5.0); Alkaline Phosphatase 69 U/L (39-117); Anion Gap 14 (12-20); Aspartate Amino Transferase 25 U/L (5-37); Bilirubin Total 1.9 mg/dL (0.0-1.0); Blood Urea Nitrogen 17 mg/dL (9-16); Calcium 9.4 mg/dL (8.4-10.2); Carbon Dioxide 30 mmol/L (22-29); Chloride 100 mmol/L (96-108); Estimated Glomerular Filt Rate > 60; Glucose Random 111 mg/dL (60-115); Potassium 3.9 mmol/L (3.3-5.1); Sodium 140 mmol/L (135-145); Total Protein 7.4 g/dL (6.5-8.0)
[2022-03-26 08:59] LABS: B Type Natriuretic Peptide 214 pg/mL (<100)
[2022-03-26 09:30] LABS: Estimated Average Glucose 103 mg/dL; Hemoglobin A1c % 5.2 %
== END 2022-03-26 07:42 | disposition home or self-care (01) ==
LOC: HO.LAB 07:41
PROVIDERS: PCP Internal Medicine; Visit Provider Internal Medicine
DX: I25.10 Atherosclerotic heart disease of native coronary artery without angina pectoris (principal)
CPT/HCPCS: 36415; 80053; 83036; 83880; 85025

== ENCOUNTER → 2022-04-29 10:00 | Outpatient (BNVA) | payer OTHER, MEDICARE, SELFPAY | PROVIDERS: PCP Internal Medicine; Visit Provider Internal Medicine | DX: Z79.01 Long term (current) use of anticoagulants (principal) ==

== ENCOUNTER → 2022-05-06 12:49 | Outpatient (BNVA) | payer OTHER, MEDICARE, SELFPAY | PROVIDERS: PCP Nurse Practitioner Family; Visit Provider Internal Medicine | DX: Z79.01 Long term (current) use of anticoagulants (principal) ==

== ENCOUNTER → 2022-05-13 12:23 | Outpatient (BNVA) | payer OTHER, MEDICARE, SELFPAY | PROVIDERS: PCP Nurse Practitioner Family; Visit Provider Internal Medicine | DX: Z79.01 Long term (current) use of anticoagulants (principal) ==

== ENCOUNTER → 2022-05-20 08:45 | Outpatient (BNVA) | payer OTHER, MEDICARE, SELFPAY | PROVIDERS: PCP Nurse Practitioner Family; Visit Provider Internal Medicine | DX: Z79.01 Long term (current) use of anticoagulants (principal) ==

== ENCOUNTER → 2022-05-27 14:23 | Outpatient (BNVA) | payer OTHER, MEDICARE, SELFPAY | PROVIDERS: PCP Nurse Practitioner Family; Visit Provider Internal Medicine | DX: Z79.01 Long term (current) use of anticoagulants (principal) ==

== ENCOUNTER → 2022-06-03 09:30 | Outpatient (BNVA) | payer OTHER, MEDICARE, SELFPAY | PROVIDERS: PCP Nurse Practitioner Family; Visit Provider Internal Medicine | DX: Z79.01 Long term (current) use of anticoagulants (principal) ==

== ENCOUNTER → 2022-06-10 09:09 | Outpatient (BNVA) | payer OTHER, MEDICARE, SELFPAY | PROVIDERS: PCP Nurse Practitioner Family; Visit Provider Internal Medicine | DX: Z79.01 Long term (current) use of anticoagulants (principal) ==

== ENCOUNTER → 2022-06-17 14:37 | Outpatient (BNVA) | payer OTHER, MEDICARE, SELFPAY | PROVIDERS: PCP Nurse Practitioner Family; Visit Provider Internal Medicine | DX: Z13.89 Encounter for screening for other disorder (principal) ==

== ENCOUNTER → 2022-06-24 08:20 | Outpatient (BNVA) | payer OTHER, MEDICARE, SELFPAY | PROVIDERS: PCP Nurse Practitioner Family; Visit Provider Internal Medicine | DX: Z79.01 Long term (current) use of anticoagulants (principal) ==

== ENCOUNTER → 2022-07-01 13:59 | Outpatient (BNVA) | payer OTHER, MEDICARE, SELFPAY | PROVIDERS: PCP Nurse Practitioner Family; Visit Provider Internal Medicine | DX: Z79.01 Long term (current) use of anticoagulants (principal) ==

== ENCOUNTER → 2022-07-08 09:11 | Outpatient (BNVA) | payer OTHER, MEDICARE, SELFPAY | PROVIDERS: PCP Nurse Practitioner Family; Visit Provider Internal Medicine | DX: Z79.01 Long term (current) use of anticoagulants (principal) ==

== ENCOUNTER → 2022-07-15 09:09 | Outpatient (BNVA) | payer OTHER, MEDICARE, SELFPAY | PROVIDERS: PCP Internal Medicine; Visit Provider Internal Medicine | DX: Z13.89 Encounter for screening for other disorder (principal) ==

== ENCOUNTER → 2022-07-22 10:14 | Outpatient (BNVA) | payer OTHER, MEDICARE, SELFPAY | PROVIDERS: PCP Internal Medicine; Visit Provider Internal Medicine | DX: Z13.89 Encounter for screening for other disorder (principal) ==

== ENCOUNTER → 2022-07-29 11:26 | Outpatient (BNVA) | payer OTHER, MEDICARE, SELFPAY | PROVIDERS: PCP Internal Medicine; Visit Provider Internal Medicine | DX: Z13.89 Encounter for screening for other disorder (principal) ==

== ENCOUNTER → 2022-08-05 09:07 | Outpatient (BNVA) | payer OTHER, MEDICARE, SELFPAY | PROVIDERS: PCP Internal Medicine; Visit Provider Internal Medicine | DX: Z79.01 Long term (current) use of anticoagulants (principal) ==

== ENCOUNTER → 2022-08-12 08:52 | Outpatient (BNVA) | payer OTHER, MEDICARE, SELFPAY | PROVIDERS: PCP Internal Medicine; Visit Provider Internal Medicine | DX: Z79.01 Long term (current) use of anticoagulants (principal) ==

== ENCOUNTER → 2022-08-19 08:47 | Outpatient (BNVA) | payer OTHER, MEDICARE, SELFPAY | PROVIDERS: PCP Internal Medicine; Visit Provider Internal Medicine | DX: Z79.01 Long term (current) use of anticoagulants (principal) ==

== ENCOUNTER 2022-08-21 12:42 | Outpatient (REF) | payer OTHER, MEDICARE, SELFPAY ==
--- NOTE | 2022-08-21 16:54 | PFT_ITS ---
INDICATION: COPD. SPIROMETRY: FEV1 to FVC of 78% with an FEV1 of 1.48 L, which is 39% predicted and FVC of 1.91 L, which is 38% predicted. No significant response to bronchodilator is noted. The maximum voluntary ventilation of 36% predicted. LUNG VOLUMES: Total lung capacity 55% predicted with an expiratory residual volume of 5% predicted. DIFFUSION CAPACITY: DLCO 59% predicted. COMPARISON: PFTs from 2016. INTERPRETATION: No definitive obstructive ventilatory defect. No significant response to bronchodilator is noted. There is a severe decrease in maximum voluntary ventilation secondary to likely deconditioning, although cannot rule out neuromuscular conditions. The patient does have a restrictive ventilatory defect consistent with [id number] restrictive lung disease, in part due to an elevated BMI with a decrease in the expiratory residual volume to 5% predicted. The patient does have a moderate diffusion impairment, although it does correct to 121% predicted when correcting for the alveolar volume suggesting that is hypo-expansion related. When compared to 2016, there is a significant decrease in the FVC, significant decrease in the FEV1, a trend decrease in the total lung capacity, and a significant decrease in the diffusion capacity. Clinical correlation warranted. Donald Menendez MD MR/MODL / [id number]
== END 2022-08-21 12:43 | disposition home or self-care (01) ==
LOC: HO.RESP 12:42
PROVIDERS: PCP Internal Medicine; Visit Provider Hospitalist
DX: J44.9 Chronic obstructive pulmonary disease, unspecified (principal); R91.8 Other nonspecific abnormal finding of lung field
CPT/HCPCS: 94060; 94727; 94729

== ENCOUNTER → 2022-08-26 12:01 | Outpatient (BNVA) | payer OTHER, MEDICARE, SELFPAY | PROVIDERS: PCP Internal Medicine; Visit Provider Internal Medicine | DX: Z79.01 Long term (current) use of anticoagulants (principal) ==

== ENCOUNTER → 2022-09-02 12:59 | Outpatient (BNVA) | payer MEDICARE, SELFPAY | PROVIDERS: PCP Internal Medicine; Visit Provider Internal Medicine | DX: Z95.2 Presence of prosthetic heart valve (principal); Z79.01 Long term (current) use of anticoagulants; Z51.81 Encounter for therapeutic drug level monitoring | CPT/HCPCS: 99212 ==

== ENCOUNTER → 2022-09-09 11:03 | Outpatient (BNVA) | payer MEDICARE, SELFPAY | PROVIDERS: PCP Internal Medicine; Visit Provider Internal Medicine ==

== ENCOUNTER → 2022-09-16 08:26 | Outpatient (BNVA) | payer MEDICARE, SELFPAY | PROVIDERS: PCP Internal Medicine; Visit Provider Internal Medicine ==

== ENCOUNTER → 2022-09-17 14:20 | Outpatient (BNVA) | payer MEDICARE, SELFPAY | PROVIDERS: PCP Internal Medicine; Visit Provider Nurse Practitioner Family | DX: G25.0 Essential tremor (principal); G47.62 Sleep related leg cramps | CPT/HCPCS: 99212 ==

== ENCOUNTER → 2022-09-23 12:30 | Outpatient (BNVA) | payer MEDICARE, SELFPAY | PROVIDERS: PCP Internal Medicine; Visit Provider Internal Medicine ==

== ENCOUNTER → 2022-09-29 08:08 | Outpatient (BNVA) | payer MEDICARE, SELFPAY | PROVIDERS: PCP Internal Medicine; Visit Provider Internal Medicine | DX: Z95.2 Presence of prosthetic heart valve (principal); Z79.01 Long term (current) use of anticoagulants; Z51.81 Encounter for therapeutic drug level monitoring | CPT/HCPCS: 85610; 99211 ==

== ENCOUNTER → 2022-10-07 08:50 | Outpatient (BNVA) | payer MEDICARE, SELFPAY | PROVIDERS: PCP Internal Medicine; Visit Provider Internal Medicine ==

== ENCOUNTER 2022-10-11 06:55 | Outpatient (REF) | payer MEDICARE, SELFPAY ==
--- NOTE | ~2022-10-11 | XR_ITS ---
EXAMINATION: Bilateral foot x-ray CLINICAL INFORMATION: Psoriatic arthritis COMPARISON: Previous right foot x-ray most recent from 2017 TECHNIQUE: 3 views of each foot FINDINGS: Right: There are postoperative changes to the distal aspect of the proximal phalanx of the second toe. There is contracture or flexion of the DIP joint of the second toe. Bone alignment is otherwise normal. No fracture or dislocation. Bony protuberance off the lateral second metatarsal head unchanged. Mild arthritis at the first MTP joint with joint space narrowing and osteophyte formation. Soft tissue arterial calcification. Left: Bone alignment is normal. No fracture or dislocation. Joint spaces are normal. Soft tissue arterial calcification. XR/XR foot RT 2V IMPRESSION: Left: Unremarkable exam Right: Postoperative change to the second proximal phalanx post osteotomy and flexion contracture of the DIP joint of the second toe. Mild arthritis at the first MTP joint..
--- NOTE | ~2022-10-11 | XR_ITS ---
EXAMINATION: Bilateral foot x-ray CLINICAL INFORMATION: Psoriatic arthritis COMPARISON: Previous right foot x-ray most recent from 2017 TECHNIQUE: 3 views of each foot FINDINGS: Right: There are postoperative changes to the distal aspect of the proximal phalanx of the second toe. There is contracture or flexion of the DIP joint of the second toe. Bone alignment is otherwise normal. No fracture or dislocation. Bony protuberance off the lateral second metatarsal head unchanged. Mild arthritis at the first MTP joint with joint space narrowing and osteophyte formation. Soft tissue arterial calcification. Left: Bone alignment is normal. No fracture or dislocation. Joint spaces are normal. Soft tissue arterial calcification. XR/XR foot LT 2V IMPRESSION: Left: Unremarkable exam Right: Postoperative change to the second proximal phalanx post osteotomy and flexion contracture of the DIP joint of the second toe. Mild arthritis at the first MTP joint..
--- NOTE | ~2022-10-11 | XR_ITS ---
EXAMINATION: XR KNEE AP STANDING CLINICAL INFORMATION: Psoriatic arthritis COMPARISON: None available. TECHNIQUE: AP bilateral standing view of the knees was obtained. FINDINGS: Bone alignment is normal. No fracture or dislocation. Normal joint spaces. Surgical clips in the distal right medial thigh. Atherosclerotic disease. XR/XR knee standing BI IMPRESSION: Unremarkable exam.
--- NOTE | ~2022-10-11 | XR_ITS ---
EXAMINATION: XR HAND, BILATERAL CLINICAL INFORMATION: Psoriatic arthritis. COMPARISON: None available. TECHNIQUE: 3 views of each hand. FINDINGS: Left: Bone alignment is normal. No fracture or dislocation. Small osteophytes at the IP joint and MCP joint of the thumb. Small osteophytes at the 1st SENIOR CARE joint. Small cysts at the 1st metacarpal bone, trapezium and scaphoid bones. Soft tissue calcification versus foreign body on the ulnar side of the proximal 2nd finger and in between the 3rd and 4th fingers. Right: Bone alignment is normal. No fracture or dislocation. Mild osteoarthritis at the 1st SENIOR CARE joint and trapezoid, trapezium, and scaphoid joints with joint space narrowing and osteophyte formation. Joint spaces are otherwise normal. Soft tissues are normal. XR/XR hand RT 2V IMPRESSION: LEFT: Mild arthritis thumb. Small cysts in the 1st metacarpal bone, trapezium and scaphoid bones. RIGHT: Mild arthritis at the 1st SENIOR CARE and trapezoid, trapezium scaphoid joints.
--- NOTE | ~2022-10-11 | XR_ITS ---
EXAMINATION: XR HAND, BILATERAL CLINICAL INFORMATION: Psoriatic arthritis. COMPARISON: None available. TECHNIQUE: 3 views of each hand. FINDINGS: Left: Bone alignment is normal. No fracture or dislocation. Small osteophytes at the IP joint and MCP joint of the thumb. Small osteophytes at the 1st ALF joint. Small cysts at the 1st metacarpal bone, trapezium and scaphoid bones. Soft tissue calcification versus foreign body on the ulnar side of the proximal 2nd finger and in between the 3rd and 4th fingers. Right: Bone alignment is normal. No fracture or dislocation. Mild osteoarthritis at the 1st ALF joint and trapezoid, trapezium, and scaphoid joints with joint space narrowing and osteophyte formation. Joint spaces are otherwise normal. Soft tissues are normal. XR/XR hand LT 2V IMPRESSION: LEFT: Mild arthritis thumb. Small cysts in the 1st metacarpal bone, trapezium and scaphoid bones. RIGHT: Mild arthritis at the 1st ALF and trapezoid, trapezium scaphoid joints.
[2022-10-11 07:29] LABS: MANUAL DIFF FLAG NO
[2022-10-11 07:32] LABS: Basophils Absolute Auto 0.1 X10*3/uL (0.0-0.2); Basophils Percent Auto 1.5 % (0-2); Eosinophils Absolute Auto 0.3 X10*3/uL (0.0-0.4); Hematocrit 37.2 % (42.0-52.0); Hemoglobin 12.4 g/dl (14.0-18.0); Imm Gran Abs Auto 0.01 X10*3/uL (0.00-0.03); Imm Gran Pct Auto 0.2 % (0.0-0.4); Lymphocytes Absolute Auto 1.2 X10*3/uL (1.2-4.9); Lymphocytes Percent Auto 22.6 % (20-40); Mean Corpuscular HGB Conc 33.3 g/dl (31.0-36.0); Mean Corpuscular Hemoglobin 31.9 pg (27.0-33.0); Mean Corpuscular Volume 95.6 fL (80.0-98.0); Mean Platelet Volume 9.4 fL (9.4-12.4); Monocytes Absolute Auto 0.5 X10*3/uL (0.1-1.2); Monocytes Percent Auto 9.4 % (2-11); Neutrophils Absolute Auto 3.2 x10*3/uL (2.0-8.3); Neutrophils Percent Auto 61.3 % (45-73); Platelet Count 216 X10*3/uL (160-400); Red Blood Count 3.89 X10*6/uL (4.60-5.80); Red Cell Distribution Width 14.5 % (11.0-16.0); White Blood Count 5.2 X10*3/uL (4.8-10.8)
[2022-10-11 07:46] LABS: Estimated Average Glucose 97 mg/dL
[2022-10-11 07:59] LABS: B Type Natriuretic Peptide 309 pg/mL (<100)
[2022-10-11 08:16] LABS: Alanine Aminotransferase 10 U/L (0-40); Albumin Level 4.2 g/dL (3.5-5.0); Alkaline Phosphatase 82 U/L (39-117); Anion Gap 13 (12-20); Aspartate Amino Transferase 25 U/L (5-37); Bilirubin Total 2.8 mg/dL (0.0-1.0); Blood Urea Nitrogen 19 mg/dL (9-16); C Reactive Protein 1.21 mg/dL (< or = 0.50); Calcium 9.3 mg/dL (8.4-10.2); Carbon Dioxide 28 mmol/L (22-29); Chloride 105 mmol/L (96-108); Cholesterol 129 mg/dL; Estimated Glomerular Filt Rate > 60; Glucose Random 109 mg/dL (60-115); HDL Cholesterol 36 mg/dL; LDL Cholesterol Calculated 60 mg/dl; Potassium 4.4 mmol/L (3.3-5.1); Sodium 142 mmol/L (135-145); Total Protein 7.1 g/dL (6.5-8.0); Triglycerides 165 mg/dL
[2022-10-11 08:44] LABS: Free T4 (Free Thyroxine) 1.15 ng/dL (0.71-1.85); Prostate Specific Antigen Scr 0.69 ng/mL (<0.05-4.0); Thyroid Stimulating Hormone 0.75 uIU/mL (0.32-4.0); Vitamin B12 555 pg/mL (200-900)
[2022-10-11 09:19] LABS: Erythrocyte Sedimentation Rate 32 MM/HR (0-15)
== END 2022-10-11 06:56 | disposition home or self-care (01) ==
LOC: HO.LAB 06:55
PROVIDERS: PCP Internal Medicine; Visit Provider Internal Medicine
DX: Z12.5 Encounter for screening for malignant neoplasm of prostate (principal); I25.10 Atherosclerotic heart disease of native coronary artery without angina pectoris; E78.00 Pure hypercholesterolemia, unspecified; L40.50 Arthropathic psoriasis, unspecified; R73.9 Hyperglycemia, unspecified
CPT/HCPCS: 36415; 73120; 73565; 73620; 80053; 80061; 82607; 82746; 83036; 83880; 84153; 84439; 84443; 85025; 85652; 86140

== ENCOUNTER → 2022-10-14 09:02 | Outpatient (BNVA) | payer MEDICARE, SELFPAY | PROVIDERS: PCP Internal Medicine; Visit Provider Internal Medicine ==

== ENCOUNTER → 2022-10-16 08:09 | Outpatient (BNVA) | payer MEDICARE, SELFPAY | PROVIDERS: PCP Internal Medicine; Visit Provider Internal Medicine Rheumatology | DX: L40.9 Psoriasis, unspecified (principal); I25.10 Atherosclerotic heart disease of native coronary artery without angina pectoris; E79.0 Hyperuricemia without signs of inflammatory arthritis and tophaceous disease; M10.9 Gout, unspecified; M19.071 Primary osteoarthritis, right ankle and foot; M19.072 Primary osteoarthritis, left ankle and foot; Z79.01 Long term (current) use of anticoagulants | CPT/HCPCS: 99202 ==

== ENCOUNTER → 2022-10-21 08:25 | Outpatient (BNVA) | payer MEDICARE, SELFPAY | PROVIDERS: PCP Internal Medicine; Visit Provider Internal Medicine ==

== ENCOUNTER → 2022-10-28 08:38 | Outpatient (BNVA) | payer MEDICARE, SELFPAY | PROVIDERS: PCP Internal Medicine; Visit Provider Internal Medicine ==

== ENCOUNTER → 2022-11-04 08:47 | Outpatient (BNVA) | payer MEDICARE, SELFPAY | PROVIDERS: PCP Internal Medicine; Visit Provider Internal Medicine ==

== ENCOUNTER → 2022-11-10 08:58 | Outpatient (BNVA) | payer MEDICARE, SELFPAY | PROVIDERS: PCP Internal Medicine; Visit Provider Internal Medicine ==

== ENCOUNTER → 2022-11-18 11:15 | Outpatient (BNVA) | payer MEDICARE, SELFPAY | PROVIDERS: PCP Internal Medicine; Visit Provider Internal Medicine ==

== ENCOUNTER → 2022-11-25 08:45 | Outpatient (BNVA) | payer MEDICARE, SELFPAY | PROVIDERS: PCP Internal Medicine; Visit Provider Internal Medicine ==

== ENCOUNTER → 2022-12-02 09:09 | Outpatient (BNVA) | payer MEDICARE, SELFPAY | PROVIDERS: PCP Internal Medicine; Visit Provider Internal Medicine ==

== ENCOUNTER → 2022-12-09 08:29 | Outpatient (BNVA) | payer MEDICARE, SELFPAY | PROVIDERS: PCP Internal Medicine; Visit Provider Internal Medicine ==

== ENCOUNTER → 2022-12-16 08:18 | Outpatient (BNVA) | payer MEDICARE, SELFPAY | PROVIDERS: PCP Internal Medicine; Visit Provider Internal Medicine ==

== ENCOUNTER → 2022-12-23 09:50 | Outpatient (BNVA) | payer MEDICARE, SELFPAY | PROVIDERS: PCP Internal Medicine; Visit Provider Internal Medicine ==

== ENCOUNTER → 2022-12-30 14:05 | Outpatient (BNVA) | payer MEDICARE, SELFPAY | PROVIDERS: PCP Internal Medicine; Visit Provider Internal Medicine ==

== ENCOUNTER 2022-12-31 07:52 | Outpatient (AMB) | payer MEDICARE, SELFPAY ==
--- NOTE | 2022-12-31 07:54 | A.OFFVIS_ITS ---
Intake Vital Signs 12/31/22 07:55 Height 6 ft 1 in Weight 231 lb 0.711 oz BMI 30.5 BP 108/62 Blood Pressure Location Lt brachial Position Sitting Pulse 68 Pulse Source Pulse Oximeter Temp 96.8 F Temp Source Skin Pulse Oximetry (%) 95 Oxygen Delivery Method Room Air Intake Visit Reasons: gout/psa Intake Note: Here for gout and PSA follow up. c/o craig feet, craig leg, craig knee pain and swelling x months and months Human Resource Officer Required: No Accompanied by: Self / Same As Patient Allergies rosuvastatin Allergy (Severe, Verified 12/31/22 07:54) muscle aches HPI HPI Comments History of Present Illness Details The patient returns today for evaluation of his joint pains. He remains on meloxicam 15 mg daily Otezla, 30 mg b.i.d., and remains on warfarin. He has had an increase in his furosemide dose because of ankle edema. He notes occasional pain at the right 1st MTP and in the right instep. The area looks to be swollen intermittently. There is no redness or warmth however. His psoriasis seems well controlled. [facility] Medical History Aortic aneurysm Chronic restrictive lung disease COPD (chronic obstructive pulmonary disease) Coronary artery disease Essential tremor Hypercholesterolemia Hypertension Pulmonary fibrosis Pulmonary nodules Syncope Surgical History Aortic valve replaced History of aneurysm History of heart artery stent History of open reduction and internal fixation (ORIF) procedure S/P placement of cardiac pacemaker Family History (Updated 12/31/22 @ 08:20 by DARWIN Corcoran) Mother No problems noted. Father No problems noted. Social History Housing: House Alcohol intake: current Alcohol intake frequency: a few times a week Alcohol type: beer Patient Tobacco Use Status: Former Tobacco user Quit Date: 1996 Tobacco use type: Cigarette e-Cigarette/Vaping Use: Never Used Second Hand Smoke Exposure: No service: No Current occupational status: employed Cognitive needs: No Hearing needs: No Vision needs: Yes Review of Systems Const Details: Negative for appetite change, weight change, fever, chills, malaise and fatigue Eyes Details: Negative for vision change, dry eyes,headaches and dizziness ENT Details: Negative for hearing change, tinnitus, oral ulcer, nose bleeds and oral dryness. Card Details: Intermittent ankle edema, helped with furosemide. Negative chest pain, palpitations the and syncope Resp Details: Negative for SOB, cough and wheezing GI Details: Negative indigestion/heartburn, nausea, abdominal pain, bowel changes, diarrhea, constipation and bloody stool. Skin/Breast Details: Negative for itching, rash, hives, Raynaud's symptoms, sun sensitivity, and skin cancer Endo Details: Negative for polyuria and polydypsia Inocencio/Lymph Details: Negative for excessive bruising or bleeding. Physical Exam Vital Signs: Last Vital Signs Temp 96.8 F 12/31/22 07:55 Pulse 68 12/31/22 07:55 BP 108/62 12/31/22 07:55 Pulse Ox 95 12/31/22 07:55 Oxygen Delivery Method Room Air 12/31/22 07:55 BMI result Body Mass Index 30.5 APPEARANCE: Patient in no acute distress EYES no redness, pupils equal and reactive to light, eyelids normal EXTREMITIES: Trace to 1+ ankle and pedal edema. No calf tenderness, normal peripheral pulses. NEURO: Oriented and alert x3. No focal weakness. Reflexes symmetric. Gait normal. SKIN: No inflammatory or neoplastic lesions. Normal color and turgor JOINT EXAM:.?? Cervical Spine:.? Some decrease in lateral flexion but without pain.? No tenderness. Thoracic Spine:.? No scoliosis.? No tenderness on palpation. Lumbar Spine:.? Alignment normal.? Full range of motion with mild pain at the extremes of flexion.? No tenderness. Chest Wall:.? No tenderness, swelling, increased warmth or erythema. Hands:.? Normal pain-free range of motion.? There is slight bony enlargement at the base of the thumbs, the right is slightly tender.? Elsewhere there is no flexor tendon triggering, thenar atrophy, sensory loss, tenderness, swelling, increased warmth or erythema. Wrists:.? Right:? Normal pain-free range of motion without tenderness, swelling, increased warmth or erythema.? Left:? Slight discomfort with flexion extension at 80 degrees with minimal tenderness but no swelling. Elbows:. Normal pain-free range of motion without tenderness, swelling, increased warmth or erythema. Shoulders:.?? Full range of motion without pain. No tenderness, weakness, swelling, increased warmth or erythema. Hips:.? Full range of motion without pain. Hip bursa:.? No tenderness. Knees:.?? Right: Normal pain-free range of motion with some slight patellofemoral crepitus.? There is a minimal effusion but no tenderness, redness or warmth.? Left:? Normal pain-free range of motion with minimal patellofemoral crepitus.? No effusion, tenderness, swelling, increased warmth or erythema.? Ankles:? Right:? Normal pain-free range of motion without tenderness, increased warmth or erythema.? There is some ankle and pedal edema but the swelling seems to be in the soft tissues and not related to joint structures.? Left:? Slight pain with extremes of inversion eversion with some minimal medial lateral tenderness.? Mild pedal edema but no redness or warmth. Feet:? Right:? Slight tenderness in the 1st 2 MTP joints.? The 1st is slightly enlarged but not red or warm.? This 2nd toe has some deformity and minimal tenderness.? It has fusiform swelling throughout suggestive of a dactylitis. It is not red or warm however. There is evidence of previous surgery.? It does have a hammertoe deformity as well.? No breaks in the skin.? No redness or warmth.? Left:? Mild tenderness across the 1st 3 MTP joints but no swelling or redness. Photograph of the feet: Tender points:? No tenderness to digital palpation at the occiput, trapezius, second rib, lateral epicondyle, knees, greater trochanter and gluteal area bilaterally. ? Results Reviewed Results Reviewed: Laboratory Tests 10/11/22 10/11/22 10/11/22 07:25 07:25 07:25 Hgb 12.4 L ESR 32 H Creatinine 0.82 C-Reactive Protein 1.[address] [address] XRay Report Signed Patient: Eddie Styles MR#: [id number] : 1955 Acct:[id number] Age/Sex: 67 / M ADM Date: 10/11/[address]: Joey Shetty MD Ordering Physician: Joey Shetty MD Date of Service: 10/11/22 Procedure(s): XR hand LT 2V Accession Number(s): [id number] cc: Joey Shetty MD~ EXAMINATION: XR HAND, BILATERAL CLINICAL INFORMATION: Psoriatic arthritis.? COMPARISON: None available. TECHNIQUE: 3 views of each hand.? FINDINGS: Left: Bone alignment is normal. No fracture or dislocation. Small osteophytes at the IP joint and MCP joint of the thumb. Small osteophytes at the 1st CORRECTION joint. Small cysts at the 1st metacarpal bone, trapezium and scaphoid bones. Soft tissue calcification versus foreign body on the ulnar side of the proximal 2nd finger and in between the 3rd and 4th fingers. Right: Bone alignment is normal. No fracture or dislocation. Mild osteoarthritis at the 1st CORRECTION joint and trapezoid, trapezium, and scaphoid joints with joint space narrowing and osteophyte formation. Joint spaces are otherwise normal. Soft tissues are normal. XR/XR hand LT 2V IMPRESSION: ? LEFT: Mild arthritis thumb. Small cysts in the 1st metacarpal bone, trapezium and scaphoid bones. ? RIGHT: Mild arthritis at the 1st CORRECTION and trapezoid, trapezium scaphoid joints. Dictated By:Adelaide Umana MD [place] [address] XRay Report Signed Patient: Eddie Styles MR#: [id number] : 1955 Acct:[id number] Age/Sex: 67 / M ADM Date: 10/11/[address]: Joey Shetty MD Ordering Physician: Joey Shetty MD Date of Service: 10/11/22 Procedure(s): XR foot RT 2V Accession Number(s): [id number] cc: Joey Shetty MD~ EXAMINATION: Bilateral foot x-ray CLINICAL INFORMATION: Psoriatic arthritis? COMPARISON: Previous right foot x-ray most recent from 2017? TECHNIQUE: 3 views of each foot? FINDINGS: Right: There are postoperative changes to the distal aspect of the proximal phalanx of the second toe. There is contracture or flexion of the DIP joint of the second toe. Bone alignment is otherwise normal. No fracture or dislocation. Bony protuberance off the lateral second metatarsal head unchanged. Mild arthritis at the first MTP joint with joint space narrowing and osteophyte formation. Soft tissue arterial calcification. Left: Bone alignment is normal. No fracture or dislocation. Joint spaces are normal. Soft tissue arterial calcification. XR/XR foot RT 2V IMPRESSION: Left: Unremarkable exam ? Right: Postoperative change to the second proximal phalanx post osteotomy and flexion contracture of the DIP joint of the second toe. Mild arthritis at the first MTP joint.. ? Dictated By: Adelaide Umana MD Assessment & Plan Assessment & Plan (1) Long-term use of immunosuppressant medication: Code(s): Z79.60 - terminal supervisor (current) use of unspecified immunomodulators and immunosuppressants (2) Osteoarthritis of feet, bilateral: Code(s): M19.071 - Primary osteoarthritis, right ankle and foot; M19.072 - Primary osteoarthritis, left ankle and foot (3) Psoriatic arthritis: Code(s): L40.50 - Arthropathic psoriasis, unspecified Plan Today there does not appear to be any sign of an acute inflammatory arthritis. The patient has some tenderness in the right foot at the 1st 2 MTP and some swelling indicating dactylitis involving the 2nd toe. Some of the deformity at the toe could also be a result of previous surgery and osteoarthritis however. I do not think he has been evolving to the picture of gout. However with his p soriasis and dactylitis I think we have to treat him for psoriatic arthritis with additional medication beyond the Otezla. Hopefully with adequate treatment he will be able to get off the meloxicam which of course has GI bleeding risk given he is anti-coagulated and the meloxicam also may be contributing to his ankle edema. When he tried to stop the meloxicam previously he had increased pain in this foot. We will check T spot testing and hepatitis serologies. If those check out okay we will see if we can get approval for the use of Humira 40 mg every 2 weeks for his psoriatic arthritis. In the meantime he should stay with the meloxicam and the Otezla. We will schedule him back for about 2 months, hopefully by then he will be on the new medication. Orders: Orders C Reactive Protein Today L40.50 - Arthropathic psoriasis, unspecified, M19.071 - Primary osteoarthritis, right ankle and foot, M19.072 - Primary osteoarthritis, left ankle and foot, Z79.60 - terminal supervisor (current) use of unspecified immunomodulators and immunosuppressants Uric Acid Today L40.50 - Arthropathic psoriasis, unspecified, M19.071 - Primary osteoarthritis, right ankle and foot, M19.072 - Primary osteoarthritis, left ankle and foot, Z79.60 - terminal supervisor (current) use of unspecified immunomodulators and immunosuppressants Complete Blood Count Auto Diff Today L40.50 - Arthropathic psoriasis, unspecified, M19.071 - Primary osteoarthritis, right ankle and foot, M19.072 - Primary osteoarthritis, left ankle and foot, Z79.60 - terminal supervisor (current) use of unspecified immunomodulators and immunosuppressants Erythrocyte Sedimentation Rate Today L40.50 - Arthropathic psoriasis, unspecified, M19.071 - Primary osteoarthritis, right ankle and foot, M19.072 - Primary osteoarthritis, left ankle and foot, Z79.60 - alf (current) use of unspecified immunomodulators and immunosuppressants Hepatitis A,B,C Profile Today L40.50 - Arthropathic psoriasis, unspecified, M19.071 - Primary osteoarthritis, right ankle and foot, M19.072 - Primary osteoarthritis, left ankle and foot, Z79.60 - terminal supervisor (current) use of unspecified immunomodulators and immunosuppressants T Spot TB Today L40.50 - Arthropathic psoriasis, unspecified, M19.071 - Primary osteoarthritis, right ankle and foot, M19.072 - Primary osteoarthritis, left ankle and foot, Z79.60 - terminal supervisor (current) use of unspecified immunomodulators and immunosuppressants Coding Level of Care Code Est Pt Level 4 (59773) Diagnoses Long-term use of immunosuppressant medication Z79.60 Osteoarthritis of feet, bilateral M19.071; M19.072 Psoriatic arthritis L40.50
[2022-12-31 07:55] VITALS: BP 108/62; PULSE 68; TEMP 36; O2SAT 95; BMI 30.5
== END 2022-12-31 08:34 | disposition home or self-care (01) ==
PROVIDERS: PCP Internal Medicine; Visit Provider Internal Medicine Rheumatology
DX: Z79.60 Long term (current) use of unspecified immunomodulators and immunosuppressants (principal); M19.071 Primary osteoarthritis, right ankle and foot; M19.072 Primary osteoarthritis, left ankle and foot; L40.50 Arthropathic psoriasis, unspecified
CPT/HCPCS: 99214

== ENCOUNTER 2022-12-31 07:52 | Outpatient (REF) | payer MEDICARE, SELFPAY ==
[2022-12-31 12:58] LABS: MANUAL DIFF FLAG NO
[2022-12-31 13:38] LABS: Basophils Absolute Auto 0.1 X10*3/uL (0.0-0.2); Basophils Percent Auto 1.6 % (0-2); Eosinophils Absolute Auto 0.3 X10*3/uL (0.0-0.4); Eosinophils Percent Auto 4.1 % (0-4); Hematocrit 38.4 % (42.0-52.0); Hemoglobin 13.2 g/dl (14.0-18.0); Imm Gran Abs Auto 0.02 X10*3/uL (0.00-0.03); Imm Gran Pct Auto 0.3 % (0.0-0.4); Lymphocytes Absolute Auto 1.6 X10*3/uL (1.2-4.9); Lymphocytes Percent Auto 25.8 % (20-40); Mean Corpuscular HGB Conc 34.4 g/dl (31.0-36.0); Mean Corpuscular Hemoglobin 31.8 pg (27.0-33.0); Mean Corpuscular Volume 92.5 fL (80.0-98.0); Mean Platelet Volume 10.1 fL (9.4-12.4); Monocytes Absolute Auto 0.6 X10*3/uL (0.1-1.2); Neutrophils Absolute Auto 3.7 x10*3/uL (2.0-8.3); Neutrophils Percent Auto 58.2 % (45-73); Platelet Count 275 X10*3/uL (160-400); Red Blood Count 4.15 X10*6/uL (4.60-5.80); White Blood Count 6.3 X10*3/uL (4.8-10.8)
[2022-12-31 14:19] LABS: Erythrocyte Sedimentation Rate 22 MM/HR (0-15)
[2022-12-31 14:34] LABS: C Reactive Protein 0.63 mg/dL (< or = 0.50); Uric Acid 10.3 mg/dL (3.4-7.0)
[2023-01-01 05:59] LABS: HBS Num1 0.13 mIU/mL (0-7.99); HBc Num1 0.11 S/CO (0.00-0.79); Hepatitis A Antibody IgM 0.17 Index (0-0.79); Hepatitis B Core Antibody Nonreactive (Nonreactive); Hepatitis B Surface Antigen Negative (Negative); ~HepC Num1 0.11 S/CO (0.00-0.79); ~Hepatitis A Antibody IgM Nonreactive (Nonreactive); ~Hepatitis B Surface Antibody NONREACTIVE (Nonreactive); ~Hepatitis C Antibody Nonreactive (Nonreactive)
[2023-01-03 00:13] LABS: TS Negative Control Passed; TS Panel A 0; TS Panel B 0; TS Positive Control Passed; TSpotTB Negative (Negative)
== END 2022-12-31 07:53 | disposition home or self-care (01) ==
LOC: HO.LAB 07:52
PROVIDERS: PCP Internal Medicine; Visit Provider Internal Medicine Rheumatology
DX: L40.50 Arthropathic psoriasis, unspecified (principal); M19.071 Primary osteoarthritis, right ankle and foot; M19.072 Primary osteoarthritis, left ankle and foot; R60.9 Edema, unspecified; Z79.899 Other long term (current) drug therapy; Z79.60 Long term (current) use of unspecified immunomodulators and immunosuppressants
CPT/HCPCS: 36415; 84550; 85025; 85652; 86140; 86481; 86704; 86706; 86709; 86803; 87340; 99212

== ENCOUNTER → 2023-01-06 08:52 | Outpatient (BNVA) | payer MEDICARE, SELFPAY | PROVIDERS: PCP Internal Medicine; Visit Provider Internal Medicine ==

== ENCOUNTER → 2023-01-13 09:02 | Outpatient (BNVA) | payer MEDICARE, SELFPAY | PROVIDERS: PCP Internal Medicine; Visit Provider Internal Medicine | DX: Z95.2 Presence of prosthetic heart valve (principal); Z79.01 Long term (current) use of anticoagulants; Z51.81 Encounter for therapeutic drug level monitoring | CPT/HCPCS: 99211 ==

== ENCOUNTER → 2023-01-20 09:50 | Outpatient (BNVA) | payer MEDICARE, SELFPAY | PROVIDERS: PCP Internal Medicine; Visit Provider Internal Medicine ==

== ENCOUNTER 2023-01-23 14:25 | Outpatient (AMB) | payer MEDICARE, SELFPAY ==
--- NOTE | 2023-01-23 14:36 | A.OFFPC_ITS ---
Vital Signs 01/23/23 14:43 Height 6 ft 1 in Weight 235 lb 2 oz BMI 31.0 BP 130/78 Blood Pressure Location Lt brachial Position Sitting Pulse 88 Pulse Source Pulse Oximeter Pulse Oximetry (%) 88 L Oxygen Delivery Method Room Air Intake Visit Reasons: Coronary artery disease aortic valve replac Intake Note: Pt is here for routine f/u. Pt needs refills o the following medications: Warferin 7.5mg and Atorvastatin 40mg. 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 Accompanied by: Self / Same As Patient Allergies rosuvastatin Allergy (Severe, Verified 01/23/23 14:51) muscle aches Medication List - Last Reconciled 01/23/23 by Joey hSetty MD adalimumab (Humira(CF) Pen) 40 mg (0.4 mL) subcut Q2W 56 days albuterol sulfate 90 mcg/actuation inhalation aspirin 81 mg PO DAILY atorvastatin 40 mg PO DAILY calcipotriene 0.005% appl topical carbidopa-levodopa 25-100 mg 2 tabs PO TID 90 days cholecalciferol (vitamin D3) 50 mcg PO DAILY diltiazem HCl ER 180 mg PO DAILY furosemide 30 alternating with 30 mg orally; ipratropium-albuterol 0.5 mg-3 mg(2.5 mg base)/3 mL 3 mL inhalation BID 90 days isosorbide mononitrate ER 30 mg PO DAILY isosorbide mononitrate ER 60 mg PO DAILY latanoprost 0.005% 0 drps ophthalmic (eye) magnesium sulfate PO meloxicam 15 mg PO DAILY metoprolol tartrate 75 mg orally 100 mg at night 75 mg in am; nebulizers As directed propranolol 10 mg PO BID 90 days warfarin 7.5 mg See Protocol PO 4XW Tobacco use date assessed: 10/08/22 Fall risk assessment: No Falls in past year Last assessed Fall Risk: 01/23/23 Dental Screening Dental Screen Date: 01/23/23 Did you have a dental visit in the last 12 months?: Yes Did you have a dental problem in the last 6 months where you did not have access to dental care?: No Was dental information given to patient?: Patient has dentist HPI Coronary artery disease aortic valve replac HPI Details 67-year-old obese male with a history of aortic valve replacement aortic aneurysm COPD CAD hypertension hypercholesterolemia and psoriasis coming in for follow-up. Last seen in September 2022. Patient's colonoscopy is up-to-date May 2021 patient follows up with Rheumatology for the Psoriatic arthritis patient had some [facility] [place] History Aortic aneurysm Chronic restrictive lung disease COPD (chronic obstructive pulmonary disease) Coronary artery disease Essential tremor Hypercholesterolemia Hypertension Pulmonary fibrosis Pulmonary nodules Syncope Surgical History S/P placement of cardiac pacemaker Aortic valve replaced History of aneurysm History of heart artery stent History of open reduction and internal fixation (ORIF) procedure Family History Mother No problems noted. Father No problems noted. Social History Housing: House Alcohol intake: current Alcohol intake frequency: a few times a week Alcohol type: beer Patient Tobacco Use Status: Former Tobacco user Quit Date: 1996 Tobacco use type: Cigarette e-Cigarette/Vaping Use: Never Used Second Hand Smoke Exposure: No service: No Current occupational status: employed Cognitive needs: No Hearing needs: No Vision needs: Yes Questionnaire Thrive Questionnaire Date Thrive assessed: 10/08/22 PARESH-7 AMB Questionnaire PARESH-7 Date PARESH - 7 assessed: 10/08/22 Source: Developed by Drs. Phillip Douglas, Terra Guy, Carl Denney and colleagues, with an educational leslye from [employer]. Physical exam (Primary Care) Vital Signs: Last Vital Signs Pulse 88 01/23/23 14:43 BP 130/78 01/23/23 14:43 Pulse Ox 88 L 01/23/23 14:43 Oxygen Delivery Method Room Air 01/23/23 14:43 BMI result Body Mass Index 31.0 Tobacco/Smoking Status: Tobacco use Status Tobacco use date assessed 10/08/22 01/23/23 14:36 Patient Tobacco Use Status Former Tobacco user 01/23/23 14:36 Tobacco use type Cigarette 01/23/23 14:36 e-Cigarette/Vaping Use Never Used 01/23/23 14:36 Thrive Assessment: Date of Thrive Assessment Date Thrive assessed 10/08/22 01/23/23 14:36 Const General: alert; No acute distress Eyes Conjunctivae: conjunctivae normal Resp Auscultation: clear to auscultation bilaterally Cardio Other: Systolic click noted of the mechanical valve Rate: regular rate Rhythm: regular rhythm GI Inspection: Yes normal to inspection Extrem General: Yes normal to inspection and No edema Assessment and Plan Assessment & Plan (1) Psoriatic arthritis: Code(s): L40.50 - Arthropathic psoriasis, unspecified Plan: Patient is being followed up by Rheumatology started on Humira and continuing on Otezla (2) Coronary artery disease: Comment: RCA stenosis nuclear perfusion April, July 2019 catheterization no severe obstructive coronary artery disease Code(s): I25.10 - Atherosclerotic heart disease of wrangell coronary artery without angina pectoris Qualifiers: Associated angina: without angina Coronary Disease-Associated Artery/Lesion type: wrangell artery [place] vs. transplanted heart: wrangell heart Qualified Code(s): I25.10 - Atherosclerotic heart disease of wrangell coronary artery without angina pectoris Plan: Control the cholesterol, weight, blood pressure (3) COPD (chronic obstructive pulmonary disease): Code(s): J44.9 - Chronic obstructive pulmonary disease, unspecified Qualifiers: COPD type: unspecified COPD Qualified Code(s): J44.9 - Chronic obstructive pulmonary disease, unspecified Plan: Continue with albuterol (4) Aortic aneurysm: Comment: Dilatation of the thoracic aorta September 2016 4.5 cm July 2017 Code(s): I71.9 - Aortic aneurysm of unspecified site, without rupture Plan: Continue to follow-up (5) Hypertension: Code(s): I10 - Essential (primary) hypertension Qualifiers: Hypertension type: essential hypertension Qualified Code(s): I10 - Essential (primary) hypertension Plan: Continue with blood pressure medication. Decrease salt intake and exercise patient takes diltiazem 180 mg once a day metoprolol tartrate (6) Aortic valve replaced: Comment: Bicuspid [address] mechanical valve Code(s): Z95.2 - Presence of prosthetic heart valve Plan: Continue to follow-up with cardiology. Continue with anticoagulation (7) Hypercholesterolemia: Code(s): E78.00 - Pure hypercholesterolemia, unspecified Plan: Avoid fried foods, chicken skin, eggs, butter margarine, pastries and meat. Be it pork or beef they have a lot of cholesterol LDL goal of less than 70 and triglyceride of less than 150 October 2022 last blood work Orders: Orders Comprehensive Met. Panel Today L40.50 - Arthropathic psoriasis, unspecified B Type Natriuretic Peptide Today L40.50 - Arthropathic psoriasis, unspecified Phosphorus Today L40.50 - Arthropathic psoriasis, unspecified Complete Blood Count Auto Diff Today L40.50 - Arthropathic psoriasis, unspecified Magnesium Today L40.50 - Arthropathic psoriasis, unspecified Medications: New albuterol sulfate 90 mcg/actuation (Ventolin HFA) 2 puffs inhalation Q6H PRN 8.5 grams 0RF shortness of breath or wheezing J44.9 - Chronic obstructive pulmonary disease, unspecified Changed From warfarin 3.75MG TUES, THUR, SAT 7.5 mg See Protocol PO 4XW 90 tabs 0RF Z95.2 - Presence of prosthetic heart valve To warfarin 7.5 mg See Protocol PO .QD 90 tabs 3RF Z95.2 - Presence of prosthetic heart valve Refilled atorvastatin 40 mg PO DAILY 90 tabs 3RF E78.00 - Pure hypercholesterolemia, un specified Coding Level of Care Code Est Pt Level 4 (62945) Diagnoses Psoriatic arthritis L40.50 Coronary artery disease involving wrangell coronary artery of wrangell heart without angina pectoris I25.10 Associated angina: without angina Coronary Disease-Associated Artery/Lesion type: wrangell artery [place] vs. transplanted heart: wrangell heart Chronic obstructive pulmonary disease, unspecified COPD type J44.9 COPD type: unspecified COPD Aortic aneurysm I71.9 Essential hypertension I10 Hypertension type: essential hypertension Aortic valve replaced Z95.2 Hypercholesterolemia E78.00
[2023-01-23 14:43] VITALS: BP 130/78; PULSE 88; O2SAT 88; BMI 31.0
== END 2023-01-23 15:13 | disposition home or self-care (01) ==
PROVIDERS: PCP Internal Medicine; Visit Provider Internal Medicine
DX: L40.50 Arthropathic psoriasis, unspecified (principal); J44.9 Chronic obstructive pulmonary disease, unspecified; I71.9 Aortic aneurysm of unspecified site, without rupture; I10 Essential (primary) hypertension; I25.10 Atherosclerotic heart disease of native coronary artery without angina pectoris; Z95.2 Presence of prosthetic heart valve; E78.00 Pure hypercholesterolemia, unspecified
CPT/HCPCS: 99214

== ENCOUNTER → 2023-01-27 11:12 | Outpatient (BNVA) | payer MEDICARE, SELFPAY | PROVIDERS: PCP Internal Medicine; Visit Provider Internal Medicine ==

== ENCOUNTER → 2023-02-03 08:17 | Outpatient (BNVA) | payer MEDICARE, SELFPAY | PROVIDERS: PCP Internal Medicine; Visit Provider Internal Medicine ==

== ENCOUNTER 2023-02-10 08:36 | Outpatient (REF) | payer MEDICARE, SELFPAY ==
[2023-02-10 14:31] LABS: MANUAL DIFF FLAG NO
[2023-02-10 14:49] LABS: Basophils Absolute Auto 0.1 X10*3/uL (0.0-0.2); Basophils Percent Auto 1.5 % (0-2); Eosinophils Absolute Auto 0.4 X10*3/uL (0.0-0.4); Eosinophils Percent Auto 6.4 % (0-4); Hematocrit 39.5 % (42.0-52.0); Hemoglobin 13.2 g/dl (14.0-18.0); Imm Gran Abs Auto 0.05 X10*3/uL (0.00-0.03); Imm Gran Pct Auto 0.8 % (0.0-0.4); Lymphocytes Absolute Auto 1.8 X10*3/uL (1.2-4.9); Lymphocytes Percent Auto 26.9 % (20-40); Mean Corpuscular HGB Conc 33.4 g/dl (31.0-36.0); Mean Corpuscular Hemoglobin 32.4 pg (27.0-33.0); Mean Corpuscular Volume 97.1 fL (80.0-98.0); Mean Platelet Volume 9.7 fL (9.4-12.4); Monocytes Absolute Auto 0.7 X10*3/uL (0.1-1.2); Monocytes Percent Auto 11.3 % (2-11); Neutrophils Absolute Auto 3.5 x10*3/uL (2.0-8.3); Neutrophils Percent Auto 53.1 % (45-73); Platelet Count 241 X10*3/uL (160-400); Red Blood Count 4.07 X10*6/uL (4.60-5.80); Red Cell Distribution Width 16.5 % (11.0-16.0); White Blood Count 6.6 X10*3/uL (4.8-10.8)
[2023-02-10 15:16] LABS: B Type Natriuretic Peptide 570 pg/mL (<100)
[2023-02-10 15:28] LABS: Alanine Aminotransferase < 5 U/L (0-40); Albumin Level 4.6 g/dL (3.5-5.0); Alkaline Phosphatase 67 U/L (39-117); Anion Gap 16 (12-20); Aspartate Amino Transferase 30 U/L (5-37); Blood Urea Nitrogen 19 mg/dL (9-16); Calcium 9.8 mg/dL (8.4-10.2); Carbon Dioxide 28 mmol/L (22-29); Chloride 102 mmol/L (96-108); Estimated Glomerular Filt Rate > 60; Glucose Random 96 mg/dL (60-115); Magnesium 2.4 mg/dL (1.6-2.6); Phosphorus 3.5 mg/dL (2.7-4.5); Sodium 142 mmol/L (135-145); Total Protein 7.8 g/dL (6.5-8.0)
== END 2023-02-10 08:37 | disposition home or self-care (01) ==
LOC: HO.LAB 08:36
PROVIDERS: Absent Provider Internal Medicine; PCP Internal Medicine; Visit Provider Internal Medicine
DX: L40.50 Arthropathic psoriasis, unspecified (principal)
CPT/HCPCS: 36415; 80053; 83735; 83880; 84100; 85025

== ENCOUNTER → 2023-02-17 12:50 | Outpatient (BNVA) | payer MEDICARE, SELFPAY | PROVIDERS: PCP Internal Medicine; Visit Provider Internal Medicine ==

== ENCOUNTER → 2023-02-24 09:40 | Outpatient (BNVA) | payer MEDICARE, SELFPAY | PROVIDERS: PCP Internal Medicine; Visit Provider Internal Medicine ==

== ENCOUNTER → 2023-03-03 08:04 | Outpatient (BNVA) | payer MEDICARE, SELFPAY | PROVIDERS: PCP Internal Medicine; Visit Provider Internal Medicine ==

== ENCOUNTER 2023-03-05 07:53 | Outpatient (AMB) | payer MEDICARE, SELFPAY ==
--- NOTE | 2023-03-05 07:53 | A.OFFVIS_ITS ---
Intake Vital Signs 03/05/23 07:54 Height 6 ft 1 in Weight 234 lb 5.622 oz BMI 30.9 BP 122/62 Blood Pressure Location Lt brachial Position Sitting Pulse 69 Pulse Source Pulse Oximeter Temp 97 F Temp Source Skin Pulse Oximetry (%) 96 Oxygen Delivery Method Room Air Intake Visit Reasons: GOUT/PSA Intake Note: Patient presents today to follow up on gout and PsA. 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 Accompanied by: Self / Same As Patient Allergies rosuvastatin Allergy (Severe, Verified 03/05/23 07:53) muscle aches Medication List - Last Reconciled 03/05/23 by Alex Taylor MD adalimumab (Humira(CF) Pen) 40 mg (0.4 mL) subcut Q2W 56 days albuterol sulfate 90 mcg/actuation (Ventolin HFA) 2 puffs inhalation Q6H PRN albuterol sulfate 90 mcg/actuation inhalation allopurinol one daily for a week then two tab daily aspirin 81 mg PO DAILY atorvastatin 40 mg PO DAILY calcipotriene 0.005% appl topical carbidopa-levodopa 25-100 mg 2 tabs PO TID 90 days cholecalciferol (vitamin D3) 50 mcg PO DAILY diltiazem HCl ER 180 mg PO DAILY furosemide 30 alternating with 30 mg orally; ipratropium-albuterol 0.5 mg-3 mg(2.5 mg base)/3 mL 3 mL inhalation BID 90 days isosorbide mononitrate ER 30 mg PO DAILY isosorbide mononitrate ER 60 mg PO DAILY latanoprost 0.005% 0 drps ophthalmic (eye) magnesium sulfate PO meloxicam 15 mg PO DAILY metoprolol tartrate 75 mg orally 100 mg at night 75 mg in am; nebulizers As directed propranolol 10 mg PO BID 90 days warfarin 7.5 mg See Protocol PO .QD HPI HPI Comments History of Present Illness Details The patient returns for evaluation of his psoriatic arthritis and psoriasis. I had added Humira 40 mg every 2 weeks to his regimen about 6 weeks ago. He says he has noted significant improvement in his ankle and foot pain with that medication. He had stopped the Otezla. He has remained on meloxicam 15 mg daily. We did check his uric acid and the value was elevated. The only area where he still gets discomfort right now seems to be in the right 2nd toe. This toe had been deformed with a hammertoe deformity. He then stubbed in the bathroom. Subsequent surgery improved its looks but still caused some discomfort. However pain at the 2nd toe is also less than previously. He does not have any skin rash. He has plans to spend the winter at [place]. He remains on furosemide taking 20 mg to 40 mg daily. [facility] Medical History Aortic aneurysm Chronic restrictive lung disease COPD (chronic obstructive pulmonary disease) Coronary artery disease Essential tremor Hypercholesterolemia Hypertension Pulmonary fibrosis Pulmonary nodules Syncope Surgical History S/P placement of cardiac pacemaker Aortic valve replaced History of aneurysm History of heart artery stent History of open reduction and internal fixation (ORIF) procedure Family History Mother No problems noted. Father No problems noted. Social History Housing: House Alcohol intake: current Alcohol intake frequency: a few times a week Alcohol t ype: beer Patient Tobacco Use Status: Former Tobacco user Quit Date: 1996 Tobacco use type: Cigarette e-Cigarette/Vaping Use: Never Used Second Hand Smoke Exposure: No service: No Current occupational status: employed Cognitive needs: No Hearing needs: No Vision needs: Yes Review of Systems Const Details: Negative for appetite change, weight change, fever, chills, malaise and fatigue Eyes Details: Negative for vision change, dry eyes,headaches and dizziness Card Details: Negative chest pain, edema and syncope Resp Details: Negative for SOB, cough and wheezing GI Details: Negative indigestion/heartburn, nausea, abdominal pain, bowel changes, diarrhea, constipation and bloody stool. Skin/Breast Details: Negative for itching, rash, hives, Raynaud's symptoms, sun sensitivity, and skin cancer Inocencio/Lymph Details: Negative for excessive bruising or bleeding. Physical Exam Vital Signs: Last Vital Signs Temp 97 F 03/05/23 07:54 Pulse 69 03/05/23 07:54 BP 122/62 03/05/23 07:54 Pulse Ox 96 03/05/23 07:54 Oxygen Delivery Method Room Air 03/05/23 07:54 BMI result Body Mass Index 30.9 APPEARANCE: Patient in no acute distress EYES no redness, pupils equal and reactive to light, eyelids normal EXTREMITIES: No edema, no calf tenderness, normal peripheral pulses. SKIN: No inflammatory or neoplastic lesions. Normal color and turgor JOINT EXAM: Cervical Spine:.? Some decrease in lateral flexion but without pain.? No tenderness. Thoracic Spine:.? No scoliosis.? No tenderness on palpation. Lumbar Spine:.? Alignment normal.? Full range of motion with mild pain at the extremes of flexion.? No tenderness. Chest Wall:.? No tenderness, swelling, increased warmth or erythema. Hands:.? Normal pain-free range of motion.? There is slight bony enlargement at the base of the thumbs, the right is slightly tender.? Elsewhere there is no flexor tendon triggering, thenar atrophy, sensory loss, tenderness, swelling, increased warmth or erythema. Wrists:.? Right:? Normal pain-free range of motion without tenderness, swelling, increased warmth or erythema.? Left:? Slight discomfort with flexion extension at 80 degrees with no tenderness or swelling. Elbows:. Normal pain-free range of motion without tenderness, swelling, incre ased warmth or erythema. Shoulders:.?? Full range of motion without pain. No tenderness, weakness, swelling, increased warmth or erythema. Hips:.? Full range of motion without pain. Hip bursa:.? No tenderness. Knees:.?? Right: Normal pain-free range of motion with some slight patellofemoral crepitus.? There is no effusion, tenderness, redness or warmth.? Left:? Normal pain-free range of motion with minimal patellofemoral crepitus.? No effusion, tenderness, swelling, increased warmth or erythema.? Ankles:? Right:? Normal pain-free range of motion without tenderness, increased warmth or erythema.? There is no ankle or pedal edema. Left:? Normal pain-free range of motion with no swelling or tenderness. No redness or warmth. Feet:? Right:? Slight tenderness at the 2nd MTP joint.? The 1st MTP is slightly enlarged but not tender, red or warm.? This 2nd toe has evidence of previous surgery and some mild tenderness.? It has fusiform swelling throughout suggestive of a dactylitis. It is not red or warm however. ? It does have a hammertoe deformity as well.? No breaks in the skin.? No redness or warmth.? Left:? No tenderness across the MTP joints or instep region. No swelling or redness. Results Reviewed Results Reviewed: Laboratory Tests 12/31/22 12/31/22 02/10/23 12:56 12:56 14:30 WBC 6.6 Hgb 13.2 L ESR 22 H Creatinine Uric Acid 10.3 H AST ALT Alkaline Phosphatase C-Reactive Protein 0.63 H 02/10/23 02/10/23 14:30 14:30 WBC Hgb ESR Creatinine 0.85 Uric Acid AST 30 ALT < 5 Alkaline Phosphatase 67 C-Reactive Protein Assessment & Plan Assessment & Plan (1) Gout: Code(s): M10.9 - Gout, unspecified (2) Hyperuricemia: Code(s): E79.0 - Hyperuricemia without signs of inflammatory arthritis and tophaceous disease (3) Current use of anticoagulant therapy: Code(s): Z79.01 - MCC (current) use of anticoagulants (4) Long-term use of immunosuppressant medication: Code(s): 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 He does not seem to have any side effects with that medication. There still is some tenderness around the 2nd toe which has had previous trauma and surgery. Still it has the look of rather fusiform enlargement suggesting possible dactylitis. Although counter tender at 2nd toe does not seem to be as tender as previously. The hyperuricemia is significant. He does have a distant history of episodic attacks that could be construed as gout so I think he needs uric acid lowering treatment. We will start him on allopurinol 100 mg daily for a week and then 200 mg daily. We will check the uric acid level in about 2-3 weeks, aiming to get it below 6. He may require more allopurinol than 200 mg daily however. During the period of time when he is adjusting up the allopurinol dosage we will continue the meloxicam but hopefully, eventually, we can get him off that since the Susan had been taking care of most of his psoriatic arthritic inflammation. The patient does have some osteoarthritis in the feet which may complicate matters if we try to take him off the meloxicam. There is no evidence of current psoriasis. We will be checking with his labs in a few weeks. [place] plans to be [place] of [place] so we will schedule him back for the spring. We discussed that the allopurinol has a rare side effect of allergy, initially manifested with itchy skin rash or she should let us know if that develops. Additionally once he is on it we would not want to have him miss doses as that might predispose to gout flare-ups. I also told him the allopurinol could affect his warfarin needs so he needs to be monitoring the warfarin anticoagulant effect. He says that he checks it weekly so will let the anticoagulation clinic know if he gets out of line. 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 of unspecified immunomodulators and immunosuppressants Uric Acid Today M10.9 - Gout, unspecified, Z79.60 - [facility]CC (current) use of unspecified immunomodulators and immunosuppressants Creatinine Today M10.9 - Gout, unspecified, 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
[2023-03-05 07:54] VITALS: BP 122/62; PULSE 69; TEMP 36.1; O2SAT 96; BMI 30.9
== END 2023-03-05 08:26 | disposition home or self-care (01) ==
PROVIDERS: PCP Internal Medicine; Visit Provider Internal Medicine Rheumatology
DX: M10.9 Gout, unspecified (principal); L40.50 Arthropathic psoriasis, unspecified; Z79.01 Long term (current) use of anticoagulants; Z79.60 Long term (current) use of unspecified immunomodulators and immunosuppressants; M19.071 Primary osteoarthritis, right ankle and foot; M19.072 Primary osteoarthritis, left ankle and foot
CPT/HCPCS: 99214

== ENCOUNTER → 2023-03-05 07:53 | Outpatient (BNVA) | payer MEDICARE, SELFPAY | PROVIDERS: PCP Internal Medicine; Visit Provider Internal Medicine Rheumatology | DX: M10.9 Gout, unspecified (principal); M19.071 Primary osteoarthritis, right ankle and foot; M19.072 Primary osteoarthritis, left ankle and foot; L40.50 Arthropathic psoriasis, unspecified; Z79.01 Long term (current) use of anticoagulants; Z79.60 Long term (current) use of unspecified immunomodulators and immunosuppressants | CPT/HCPCS: 99212 ==

== ENCOUNTER → 2023-03-10 08:48 | Outpatient (BNVA) | payer MEDICARE, SELFPAY | PROVIDERS: PCP Internal Medicine; Visit Provider Internal Medicine ==

== ENCOUNTER 2023-03-11 12:53 | Outpatient (AMB) | payer MEDICARE, SELFPAY ==
--- NOTE | 2023-03-11 13:03 | MHC.OFFVIS ---
Intake Vital Signs 03/11/23 13:04 Weight 236 lb BP 112/74 Blood Pressure Location Rt brachial Position Sitting Pulse 70 Pulse Source Pulse Oximeter Pulse Oximetry (%) 96 Oxygen Delivery Method Room Air Intake Visit Reasons: 6m follow up-Confirmed Intake Note: Patient presents for 6 month follow up. Patient states no issues today. Allergies rosuvastatin Allergy (Severe, Verified 03/11/23 13:05) muscle aches Medication List - Last Reconciled 03/11/23 by LINNEA Wallace adalimumab (Humira(CF) Pen) 40 mg (0.4 mL) subcut Q2W 56 days albuterol sulfate 90 mcg/actuation (Ventolin HFA) 2 puffs inhalation Q6H PRN albuterol sulfate 90 mcg/actuation inhalation allopurinol one daily for a week then two tab daily aspirin 81 mg PO DAILY atorvastatin 40 mg PO DAILY calcipotriene 0.005% appl topical carbidopa-levodopa 25-100 mg 2 tabs PO TID 90 days cholecalciferol (vitamin D3) 50 mcg PO DAILY diltiazem HCl ER 180 mg PO DAILY furosemide 30 alternating with 30 mg orally; ipratropium-albuterol 0.5 mg-3 mg(2.5 mg base)/3 mL 3 mL inhalation BID 90 days isosorbide mononitrate ER 30 mg PO DAILY isosorbide mononitrate ER 60 mg PO DAILY latanoprost 0.005% 0 drps ophthalmic (eye) magnesium sulfate PO meloxicam 15 mg PO DAILY metoprolol tartrate 75 mg orally 100 mg at night 75 mg in am; nebulizers As directed propranolol 10 mg PO BID 90 days warfarin 7.5 mg See Protocol PO .QD HPI HPI Comments History of Present Illness Details 67-yr-old male presents for f/u visit. Pt denies any significant interval medical changes. Pt has started on Humira for psoriatic arthritis, which has helped with the skin rashes and joint stiffness. He continues on furosemide- tries to balance dosing so he does not have cramps. He is tolertaing increase in CD-LD to 2 tabs tid well. His tremor is stable. Can write if he prints and supports his elbow. Denies nausea, hallucinations, falls, lightheadedness, dyskinesias. [facility] Medical History Aortic aneurysm Chronic restrictive lung disease COPD (chronic obstructive pulmonary disease) Coronary artery disease Essential tremor Hypercholesterolemia Hypertension Pulmonary fibrosis Pulmonary nodules Syncope Surgical History S/P placement of cardiac pacemaker Aortic valve replaced History of aneurysm History of heart artery stent History of open reduction and internal fixation (ORIF) procedure Family History Mother No problems noted. Father No problems noted. Social History Housing: House Alcohol intake: current Alcohol intake frequency: a few times a week Alcohol type: beer Patient Tobacco Use Status: Former Tobacco user Quit Date: 1996 Tobacco use type: Cigarette e-Cigarette/Vaping Use: Never Used Second Hand Smoke Exposure: No service: No Current occupational status: employed Cognitive needs: No Hearing needs: No Vision needs: Yes Review of Systems Const All systems reviewed & are unremarkable except as noted in HPI and below Physical Exam Vital Signs: Last Vital Signs Pulse 70 03/11/23 13:04 BP 112/74 03/11/23 13:04 Pulse Ox 96 03/11/23 13:04 Oxygen Delivery Method Room Air 03/11/23 13:04 Const General: cooperative and no acute distress Orientation/consciousness: patient oriented x3 HEENT Head: Yes normocephalic Resp Effort & Inspection: normal respiratory effort and able to speak in complete sentences Neuro Other: BUE postural tremor General: patient oriented x3, gait normal and CN's II-XI intact bilaterally Cognition (Neuro): normal cognition Motor exam (neuro): 5/5 motor strength present throughout Psych Appearance: grossly normal Mental Status: mental status grossly normal Affect: normal affect Attitude: cooperative Thought process: Normal thought process present Assessment & Plan Assessment & Plan (1) Essential tremor: Code(s): G25.0 - Essential tremor (2) Nocturnal leg cramps: Code(s): G47.62 - Sleep related leg cramps Plan Continue Sinemet 25/100 mg to 2 tabs TID- for tremor Continue Propranolol 10 mg BID. Monitor tremors, cramps. f/u in August- when pt returns form [place] or sooner prn Medications: Refilled carbidopa-levodopa 25-100 mg 2 tabs PO TID 90 days 540 tabs 6RF propranolol 10 mg PO BID 90 days 180 tabs 6RF Coding Level of Care Code Est Pt Level 4 (63075) Diagnoses Essential tremor G25.0 Nocturnal leg cramps G47.62
[2023-03-11 13:04] VITALS: BP 112/74; PULSE 70; O2SAT 96
== END 2023-03-11 13:33 | disposition home or self-care (01) ==
PROVIDERS: Visit Provider Nurse Practitioner Family
DX: G25.0 Essential tremor (principal); G47.62 Sleep related leg cramps
CPT/HCPCS: 99214

== ENCOUNTER → 2023-03-11 12:53 | Outpatient (BNVA) | payer MEDICARE, SELFPAY | PROVIDERS: Visit Provider Nurse Practitioner Family | DX: G25.0 Essential tremor (principal); G47.62 Sleep related leg cramps; Z79.899 Other long term (current) drug therapy | CPT/HCPCS: 99212 ==

== ENCOUNTER → 2023-03-17 08:40 | Outpatient (BNVA) | payer MEDICARE, SELFPAY | PROVIDERS: PCP Internal Medicine; Visit Provider Internal Medicine ==

== ENCOUNTER → 2023-03-24 08:27 | Outpatient (BNVA) | payer MEDICARE, SELFPAY | PROVIDERS: PCP Internal Medicine; Visit Provider Internal Medicine | DX: Z95.2 Presence of prosthetic heart valve (principal); Z79.01 Long term (current) use of anticoagulants; Z51.81 Encounter for therapeutic drug level monitoring | CPT/HCPCS: 94640; 99212 ==

== ENCOUNTER 2023-03-24 08:40 | Outpatient (AMB) | payer MEDICARE, SELFPAY ==
--- NOTE | 2023-03-24 08:51 | A.OFFVIS_ITS ---
Intake Vital Signs 03/24/23 08:52 Height 6 ft 1 in Weight 220 lb BMI 29.0 BP 126/68 Blood Pressure Location Lt brachial Position Sitting Pulse 76 Pulse Oximetry (%) 96 Oxygen Delivery Method Room Air Intake Visit Reasons: wheezing Editor Managing Director Required: No Railroad Wheels And Axles Inspector: Railroad Wheels And Axles Inspector offered & declined Allergies rosuvastatin Allergy (Severe, Verified 03/24/23 08:59) muscle aches Medication List - Last Reconciled 03/24/23 by Gloria Roper LPN adalimumab (Humira(CF) Pen) 40 mg (0.4 mL) subcut Q2W 56 days albuterol sulfate 90 mcg/actuation (Ventolin HFA) 2 puffs inhalation Q6H PRN albuterol sulfate 90 mcg/actuation inhalation allopurinol one daily for a week then two tab daily aspirin 81 mg PO DAILY atorvastatin 40 mg PO DAILY calcipotriene 0.005% appl topical carbidopa-levodopa 25-100 mg 2 tabs PO TID 90 days cholecalciferol (vitamin D3) 50 mcg PO DAILY diltiazem HCl ER 180 mg PO DAILY furosemide 30 alternating with 30 mg orally; ipratropium-albuterol 0.5 mg-3 mg(2.5 mg base)/3 mL 3 mL inhalation BID 90 days isosorbide mononitrate ER 30 mg PO DAILY isosorbide mononitrate ER 60 mg PO DAILY latanoprost 0.005% 0 drps ophthalmic (eye) magnesium sulfate PO meloxicam 15 mg PO DAILY metoprolol tartrate 75 mg orally 100 mg at night 75 mg in am; nebulizers As directed propranolol 10 mg PO BID 90 days warfarin 7.5 mg See Protocol PO .QD HPI wheezing HPI Details Eddie is a pleasant 67 year old male, former smoker, who is followed for pulmonary fibrosis, COPD and pulmonary nodules. At baseline, he is well controlled on nebulized budesonide and duoneb as well as albuterol MDI. Today he presents for an acute visit. He reports wheezing, chest tightness, chest congestion and dyspnea that has been worsening over the past week. He denies cough. He has been using his albuterol MDI upwards up 5 times per day with partial relief. He denies any fevers, chills, or sick contacts. Of note, he is leaving next week and will be gone until the spring. PFSH Medical History (Reviewed 09/17/22 @ 14:37 by Kayleen Mueller [facility]) Aortic aneurysm Chronic restrictive lung disease COPD (chronic obstructive pulmonary disease) Coronary artery disease Essential tremor Hypercholesterolemia Hypertension Pulmonary fibrosis Pulmonary nodules Syncope Surgical History S/P placement of cardiac pacemaker Aortic valve replaced History of aneurysm History of heart artery stent History of open reduction and internal fixation (ORIF) procedure Family History Mother No problems noted. Father No problems noted. Social History (Updated 03/24/23 @ 09:07 by Gloria Roper LPN) Housing: House Alcohol intake: current Alcohol intake frequency: a few times a week Alcohol type: beer Patient Tobacco Use Status: Former Tobacco user Quit Date: 1996 Tobacco use type: Cigarette e-Cigarette/Vaping Use: Never Used Second Hand Smoke Exposure: No service: No Current occupational status: employed Cognitive needs: No Hearing needs: No Vision needs: Yes Review of Systems Const Denies chills, Denies excessive sweating, Denies fever(s), Denies headache(s) and Denies night sweats Eyes Denies dry eyes, Denies irritation and Denies itchy eyes ENT Reports Normal hearing present, Denies headache(s), Denies nasal congestion, Denies nasal discharge, Denies post nasal drip and Denies sore throat Card Denies chest pain, Denies chest pain at rest, Denies chest pain with activity, Denies claudication, Denies leg edema, Denies orthopnea and Denies paroxysmal nocturnal dyspnea Resp Denies cough, Denies excessive phlegm production, Denies pain on inspiration, Denies pain with cough and Denies stridor Musc Denies myalgias Neuro Reports Normal hearing present and Denies headache(s) Endo Denies excessive sweating Inocencio/Lymph Denies lymphadenopathy Aller/Immun Denies itchy eyes and Denies seasonal rhinorrhea Physical Exam Vital Signs: Last Vital Signs Pulse 76 03/24/23 08:52 BP 126/68 03/24/23 08:52 Pulse Ox 96 03/24/23 08:52 Oxygen Delivery Method Room Air 03/24/23 08:52 BMI result Body Mass Index 29.0 Const General: cooperative, healthy appearing, comfortable, no acute distress, well developed and alert Nutritional Appearance: obese Orientation/consciousness: patient oriented x3 Limitations: no limitations HEENT Head: Yes normal to inspection, Yes normocephalic and Yes atraumatic Ears: hearing grossly normal bilaterally and external ears normal Eyes General: appearance normal, both eyes and all related structures Eyelids: Yes eyelids normal Sclerae: sclerae normal EOM: EOMs intact bilaterally Neck Neck: Yes normal visual inspection and Yes no lymphadenopathy Lymphatic: no lymphadenopathy noted Chest Chest palpation & inspection: normal inspection of the chest Resp Other: poor airmovement bilaterally, improved after duoneb, no wheezing, post exhalation cough Effort & Inspection: normal respiratory effort, able to speak in complete sentences, no audible wheezes, no cough, no stridor, not tachypneic, no tripod positioning and no use of accessory muscles Cardio Jugular venous distension: no JVD Rate: regular rate Skin Other: warm, dry General skin exam: no rashes or lesions noted Neuro General: patient oriented x3 Cranial nerves: Yes Normal hearing present Cognition (Neuro): normal cognition Gait exam (Neuro): Normal gait present Extrem General: Yes normal to inspection, Yes capillary refill normal, Yes no clubbing, cyanosis or edema and Yes no pedal edema Psych Appearance: grossly normal and well kempt Speech and movement: Normal speech and movement present and Clear speech present Affect: normal affect Attitude: cooperative Thought process: Normal thought process present Thought content: Normal thought content present Insight: Good insight present (Psych) Judgement: Good judgement present (Psych) Office Procedures Nebulizer Treatment Nebulizer Treatment [id number] RX initial, or Nebulizer Subsequent Treatment Office Meds ipratropium 0.5 mg-albuterol 3 mg (2.5 mg base)/3 mL nebulization soln Performing Provider: Anna Centeno NP Performing Location: [facility] Administered by: Gloria Roper LPN on 03/24/23 16:40 Dose Route Admin Location Dispensed Lot Number Expiration Date [facility] Screen Printing Cloth Spreader 3 mL inhalation 3 mL [id number] 02/07/25 28792-730-41 [employer] Results AMB INR Fingerstick AMB INR Fingerstick 3.4 Last Edit by Ruthie Martinez RN on 03/24/23 08:34 Assessment & Plan Assessment & Plan (1) COPD (chronic obstructive pulmonary disease): Code(s): J44.9 - Chronic obstructive pulmonary disease, unspecified Qualifiers: COPD type: unspecified COPD Qualified Code(s): J44.9 - Chronic obstructive pulmonary disease, unspecified (2) Pulmonary fibrosis: Comment: Small area of scarring at the left base. No evidence of active ILD. Code(s): J84.10 - Pulmonary fibrosis, unspecified (3) Pulmonary nodules: Code(s): R91.8 - Other nonspecific abnormal finding of lung field Plan Eddie presents with an acute exacerbation of COPD, will treat with prednisone and vantin, patient on coumadin. Nebulizer given in office with partial improvements in air movement bilaterally. Patient aware if symptoms do not improve to call the office or seek emergent care if symptoms worsen. All questions were answered and patient is in agreement of plan. Will follow up with Dr. Menendez for regularly scheduled appointment. Orders: Orders AMB Nebulizer Treatment 03/24/23 J44.9 - Chronic obstructive pulmonary disease, unspecified, J98.4 - Other disorders of lung Medications: New cefpodoxime must administer with a meal/food 100 mg PO BID 20 tabs 0RF prednisone 40 mg (2 x 20 mg) PO DAILY 10 tabs 0RF Coding Level of Care Code Est Pt Level 3 (98519) Diagnoses Chronic obstructive pulmonary disease, unspecified COPD type J44.9 COPD type: unspecified COPD Pulmonary fibrosis J84.10 Pulmonary nodules R91.8 CPT Codes Nebulizer Treatment - Nebulizer Treatment, initial or subsequent: [id number] Nebulizer/MDI RX initial, or Nebulizer Subsequent Treatment ([id number])
[2023-03-24 08:52] VITALS: BP 126/68; PULSE 76; O2SAT 96; BMI 29.0
== END 2023-03-24 09:33 | disposition home or self-care (01) ==
PROVIDERS: PCP Internal Medicine; Visit Provider Nurse Practitioner Family
DX: J44.9 Chronic obstructive pulmonary disease, unspecified (principal); J84.10 Pulmonary fibrosis, unspecified; R91.8 Other nonspecific abnormal finding of lung field
CPT/HCPCS: 99213

== ENCOUNTER 2023-03-24 09:36 | Outpatient (REF) | payer MEDICARE, SELFPAY ==
[2023-03-24 11:38] LABS: MANUAL DIFF FLAG NO
[2023-03-24 11:49] LABS: Basophils Absolute Auto 0.1 X10*3/uL (0.0-0.2); Basophils Percent Auto 2.2 % (0-2); Eosinophils Absolute Auto 0.5 X10*3/uL (0.0-0.4); Eosinophils Percent Auto 8.1 % (0-4); Hematocrit 39.6 % (42.0-52.0); Hemoglobin 13.5 g/dl (14.0-18.0); Imm Gran Abs Auto 0.04 X10*3/uL (0.00-0.03); Imm Gran Pct Auto 0.6 % (0.0-0.4); Lymphocytes Absolute Auto 1.8 X10*3/uL (1.2-4.9); Lymphocytes Percent Auto 28.1 % (20-40); Mean Corpuscular HGB Conc 34.1 g/dl (31.0-36.0); Mean Corpuscular Hemoglobin 32.5 pg (27.0-33.0); Mean Corpuscular Volume 95.4 fL (80.0-98.0); Mean Platelet Volume 10.1 fL (9.4-12.4); Monocytes Absolute Auto 0.8 X10*3/uL (0.1-1.2); Monocytes Percent Auto 12.6 % (2-11); Neutrophils Percent Auto 48.4 % (45-73); Platelet Count 259 X10*3/uL (160-400); Red Blood Count 4.15 X10*6/uL (4.60-5.80); Red Cell Distribution Width 15.1 % (11.0-16.0); White Blood Count 6.3 X10*3/uL (4.8-10.8)
[2023-03-24 12:10] LABS: C Reactive Protein 0.26 mg/dL (< or = 0.50); Estimated Glomerular Filt Rate > 60; Uric Acid 6.8 mg/dL (3.4-7.0)
[2023-03-24 12:46] LABS: Erythrocyte Sedimentation Rate 14 MM/HR (0-15)
== END 2023-03-24 09:37 | disposition home or self-care (01) ==
LOC: HO.WFDLDS 09:36
PROVIDERS: Visit Provider Internal Medicine Rheumatology
DX: M10.9 Gout, unspecified (principal); Z79.60 Long term (current) use of unspecified immunomodulators and immunosuppressants
CPT/HCPCS: 36415; 82565; 84550; 85025; 85652; 86140

== ENCOUNTER → 2023-03-31 10:16 | Outpatient (BNVA) | payer MEDICARE, SELFPAY | PROVIDERS: PCP Internal Medicine; Visit Provider Internal Medicine ==

== ENCOUNTER → 2023-04-07 09:14 | Outpatient (BNVA) | payer MEDICARE, SELFPAY | PROVIDERS: PCP Internal Medicine; Visit Provider Internal Medicine ==

== ENCOUNTER → 2023-04-14 09:08 | Outpatient (BNVA) | payer MEDICARE, SELFPAY | PROVIDERS: PCP Internal Medicine; Visit Provider Internal Medicine ==

== ENCOUNTER → 2023-04-21 09:52 | Outpatient (BNVA) | payer MEDICARE, SELFPAY | PROVIDERS: PCP Internal Medicine; Visit Provider Internal Medicine ==

== ENCOUNTER → 2023-04-28 11:33 | Outpatient (BNVA) | payer MEDICARE, SELFPAY | PROVIDERS: PCP Internal Medicine; Visit Provider Internal Medicine ==

== ENCOUNTER → 2023-05-05 11:36 | Outpatient (BNVA) | payer MEDICARE, SELFPAY | PROVIDERS: PCP Internal Medicine; Visit Provider Internal Medicine ==

== ENCOUNTER → 2023-05-12 11:40 | Outpatient (BNVA) | payer MEDICARE, SELFPAY | PROVIDERS: PCP Internal Medicine; Visit Provider Internal Medicine ==

== ENCOUNTER → 2023-05-19 09:38 | Outpatient (BNVA) | payer MEDICARE, SELFPAY | PROVIDERS: PCP Internal Medicine; Visit Provider Internal Medicine ==

== ENCOUNTER → 2023-05-26 13:37 | Outpatient (BNVA) | payer MEDICARE, SELFPAY | PROVIDERS: PCP Internal Medicine; Visit Provider Internal Medicine ==

== ENCOUNTER → 2023-06-02 10:08 | Outpatient (BNVA) | payer MEDICARE, SELFPAY | PROVIDERS: PCP Internal Medicine; Visit Provider Internal Medicine ==

== ENCOUNTER → 2023-06-05 16:57 | Outpatient (BNVA) | payer MEDICARE, SELFPAY | PROVIDERS: PCP Internal Medicine; Visit Provider Internal Medicine ==

== ENCOUNTER → 2023-06-08 16:30 | Outpatient (BNVA) | payer MEDICARE, SELFPAY | PROVIDERS: PCP Internal Medicine; Visit Provider Internal Medicine ==

== ENCOUNTER → 2023-06-12 10:45 | Outpatient (BNVA) | payer MEDICARE, SELFPAY | PROVIDERS: PCP Internal Medicine; Visit Provider Internal Medicine ==

== ENCOUNTER → 2023-06-16 09:34 | Outpatient (BNVA) | payer MEDICARE, SELFPAY | PROVIDERS: PCP Internal Medicine; Visit Provider Internal Medicine ==

== ENCOUNTER → 2023-06-19 11:52 | Outpatient (BNVA) | payer MEDICARE, SELFPAY | PROVIDERS: PCP Internal Medicine; Visit Provider Internal Medicine ==

== ENCOUNTER → 2023-06-23 08:21 | Outpatient (BNVA) | payer MEDICARE, SELFPAY | PROVIDERS: PCP Internal Medicine; Visit Provider Internal Medicine ==

== ENCOUNTER → 2023-06-30 11:22 | Outpatient (BNVA) | payer MEDICARE, SELFPAY | PROVIDERS: PCP Internal Medicine; Visit Provider Internal Medicine ==

== ENCOUNTER → 2023-07-07 08:31 | Outpatient (BNVA) | payer MEDICARE, SELFPAY | PROVIDERS: PCP Internal Medicine; Visit Provider Internal Medicine ==

== ENCOUNTER → 2023-07-14 13:46 | Outpatient (BNVA) | payer MEDICARE, SELFPAY | PROVIDERS: PCP Internal Medicine; Visit Provider Internal Medicine ==

== ENCOUNTER → 2023-07-21 08:19 | Outpatient (BNVA) | payer MEDICARE, SELFPAY | PROVIDERS: PCP Internal Medicine; Visit Provider Internal Medicine ==

== ENCOUNTER → 2023-07-29 08:38 | Outpatient (BNVA) | payer MEDICARE, SELFPAY | PROVIDERS: PCP Internal Medicine; Visit Provider Internal Medicine ==

== ENCOUNTER → 2023-08-04 10:29 | Outpatient (BNVA) | payer MEDICARE, SELFPAY | PROVIDERS: PCP Internal Medicine; Visit Provider Internal Medicine ==

== ENCOUNTER → 2023-08-11 08:13 | Outpatient (BNVA) | payer MEDICARE, SELFPAY | PROVIDERS: PCP Internal Medicine; Visit Provider Internal Medicine ==

== ENCOUNTER 2023-08-17 09:17 | Outpatient (AMB) | payer MEDICARE, SELFPAY ==
[2023-08-17 09:21] VITALS: BP 104/52; PULSE 75; O2SAT 98; BMI 30.6
--- NOTE | 2023-08-17 09:21 | MHC.PC.OV ---
Vital Signs 08/17/23 09:21 Height 6 ft 1 in Weight 232 lb BMI 30.6 BP 104/52 L Blood Pressure Location Lt brachial Position Sitting Pulse 75 Pulse Source Pulse Oximeter Pulse Oximetry (%) 98 Oxygen Delivery Method Room Air Intake Visit Reasons: COPD MVR Intake Note: Refill on aspirin bumetanide, amoxicillian for dentist Allergies rosuvastatin Allergy (Severe, Verified 08/17/23 09:21) muscle aches Medication List - Last Reconciled 08/17/23 by Joey Shetty MD adalimumab (Humira(CF) Pen) 40 mg (0.4 mL) subcut Q2W 56 days albuterol sulfate 90 mcg/actuation (Ventolin HFA) 2 puffs inhalation Q6H PRN allopurinol 200 mg PO DAILY aspirin 81 mg PO DAILY atorvastatin 40 mg PO DAILY budesonide 0.5 mg inhalation BID bumetanide 2 mg PO DAILY calcipotriene 0.005% appl topical carbidopa-levodopa 25-100 mg 2 tabs PO TID 90 days cholecalciferol (vitamin D3) 50 mcg PO DAILY formoterol fumarate 2 mL inhalation BID ipratropium-albuterol 0.5 mg-3 mg(2.5 mg base)/3 mL 3 mL inhalation BID 90 days isosorbide mononitrate ER 30 mg PO DAILY isosorbide mononitrate ER 60 mg PO DAILY latanoprost 0.005% 0 drps ophthalmic (eye) magnesium oxide 800 mg PO DAILY metoprolol tartrate 75 mg PO BID nebulizers As directed potassium chloride ER (Klor-Con M) 20 mEq PO BID propranolol 10 mg PO BID 90 days warfarin 7.5 mg See Protocol PO .QD warfarin 5 mg See Protocol PO DAILY Tobacco use date assessed: 08/17/23 Fall risk assessment: No Falls in past year Last assessed Fall Risk: 08/17/23 Dental Screening Dental Screen Date: 08/17/23 Did you have a dental visit in the last 12 months?: Yes Did you have a dental problem in the last 6 months where you did not have access to dental care?: No Was dental information given to patient?: Patient has dentist HPI COPD MVR HPI Details 68-year-old male with a history of aortic valve(bicuspid aortic valve- mechanical valve 1996) replacement coronary artery disease(right coronary artery stenting March 2005) COPD hypertension hypercholesterolemia coming in for follow-up. Last seen in January 2023 patient has psoriatic arthritis also and an aneurysm in the aorta(ascending aorta aneurysm resection 1996) sick sinus syndrome on a Biotronik pacemaker, and atrial fibrillation since October 2021. Review of the notes in May 2023 was in the hospital in [place] due to shortness of breath the to 17 May diagnosis of COPD exacerbation and congestive heart failure. Then atypical pneumonia treated with Levaquin at this point the thoracic aortic aneurysm was measured at 5.3 cm. echo just done Thursday. [facility] Medical History Aortic aneurysm Chronic restrictive lung disease COPD (chronic obstructive pulmonary disease) Coronary artery disease Essential tremor Hypercholesterolemia Hypertension Pulmonary fibrosis Pulmonary nodules Syncope Surgical History S/P placement of cardiac pacemaker Aortic valve replaced History of aneurysm History of heart artery stent History of open reduction and internal fixation (ORIF) procedure Family History Mother No problems noted. Father No problems noted. Social History (Updated 03/24/23 @ 09:07 by Gloria Roper LPN) Housing: House Alcohol intake: current Alcohol intake frequency: a few times a week Alcohol type: beer Patient Tobacco Use Status: Former Tobacco user Quit Date: 1996 Tobacco use type: Cigarette e-Cigarette/Vaping Use: Never Used Second Hand Smoke Exposure: No service: No Current occupational status: employed Cognitive needs: No Hearing needs: No Vision needs: Yes Questionnaire PHQ-9 Over the last 2 weeks, how often have you been bothered by any of the following problems? 1. Little interest or pleasure in doing things: not at all 2. Feeling down, depressed, or hopeless: not at all 3. Trouble falling or staying asleep, or sleeping too much: not at all 4. Feeling tired or having little energy: not at all 5. Poor appetite or overeating: not at all 6. Feeling bad about yourself - or that you are a failure or have let yourself or your family down: not at all 7. Trouble concentrating on things, such as reading the newspaper or watching television: not at all 8. Moving or speaking so slowly that other people could have noticed. Or the opposite - being so fidgety or restless that you have been moving around a lot more than usual: not at all 9. Thoughts that you would be better off or of hurting yourself in some way: not at all Total score: 0 Depression Screening Interpretation: Negative Depression Screening Done: Yes Source: Developed by Drs. Phillip Douglas, Terra Guy, Carl Denney and colleagues, with an educational leslye from [employer]. Thrive Questionnaire Date Thrive assessed: 08/17/23 I am a: Patient What is your living situation today?: I have a steady place to live Within the past 12 months, did the food you bought not last and you didn't have the money to get more?: Never true Within the past 12 months, did you worry whether your food would run out before you got money to buy more?: Never true Do you have trouble paying for medicines?: No Do you have trouble getting transportation to medical appointments?: No Do you have trouble paying your heating and electricity bill?: No Do you have trouble taking care of your child, family member or friend?: No Do you have trouble with day-to-day activities such as bathing, preparing meals, shopping, managing finances, etc.?: No Are you currently unemployed and looking for a job?: No Are you interested in more education?: No Currently or been in a relationship where the following occur: no concerns reported THRIVE Score: 0 AUDIT C Alcohol Use Questionnaire (AUDIT-C) 1. How often do you have a drink containing alcohol?: 2-3 times a week 2. How many drinks containing alcohol do you have on a typical day when you are drinking?: 1 or 2 3. How often do you have six or more drinks on one occasion?: Never Total Score: 3 Score Reviewed/Action Taken: Yes PARESH-7 AMB Questionnaire PARESH-7 Date PARESH - 7 assessed: 08/17/23 Feeling nervous, anxious, or on edge: 0 = Not at all Not being able to stop or control worryin = Not at all Worrying too much about different things: 0 = Not at all Trouble relaxin = Not at all Being so restless that it is hard to sit still: 0 = Not at all Becoming easily annoyed or irritable: 0 = Not at all Feeling afraid as if something awful might happen: 0 = Not at all Total PARESH-7 score (0-4 normal; 5-9 mild; 10-14 moderate; 15-21 severe): 0 Source: Developed by Drs. Phillip Douglas, Terra Guy, Carl Denney and colleagues, with an educational leslye from [employer]. Physical exam (Primary Care) Vital Signs: Last Vital Signs Pulse 75 08/17/23 09:21 BP 104/52 L 08/17/23 09:21 Pulse Ox 98 08/17/23 09:21 Oxygen Delivery Method Room Air 08/17/23 09:21 BMI result Body Mass Index 30.6 Tobacco/Smoking Status: Tobacco use Status Tobacco use date assessed 08/17/23 08/17/23 09:30 Patient Tobacco Use Status Former Tobacco user 08/17/23 09:30 Tobacco use type Cigarette 08/17/23 09:30 e-Cigarette/Vaping Use Never Used 08/17/23 09:30 PHQ-9: PHQ-9 Score PHQ-9: Total score 0 08/17/23 09:30 Depression Screening Interpretation: Negative Thrive Assessment: Date of Thrive Assessment Date Thrive assessed 08/17/23 08/17/23 09:30 Currently or been in a relationship where the following occur: no concerns reported Const General: alert; No acute distress Eyes Conjunctivae: conjunctivae normal Resp Other: Basilar crackles noted Cardio Other: Irregular rate and rhythm with systolic click from the mechanical valve GI Inspection: Yes normal to inspection Extrem General: Yes normal to inspection and No edema Assessment and Plan Assessment & Plan (1) Coronary artery disease: Comment: RCA stenosis nuclear perfusion April, July 2019 catheterization no severe obstructive coronary artery disease Code(s): I25.10 - Atherosclerotic heart disease of [place] coronary artery without angina pectoris Qualifiers: Coronary Disease-Associated Artery/Lesion type: [place] artery [place] vs. transplanted heart: [place] heart Associated angina: without angina Qualified Code(s): I25.10 - Atherosclerotic heart disease of [place] coronary artery without angina pectoris Plan: Control the cholesterol, weight, blood pressure, presently on anticoagulation and aspirin (2) Aortic aneurysm: Comment: Dilatation of the thoracic aorta September 2016 4.5 cm July 2017 Code(s): I71.9 - Aortic aneurysm of unspecified site, without rupture Plan: This is being followed. Echocardiogram in [place] shows 5.3 cm patient will have a follow-up with cardiology (3) Hypertension: Code(s): I10 - Essential (primary) hypertension Qualifiers: Hypertension type: essential hypertension Qualified Code(s): I10 - Essential (primary) hypertension Plan: Continue with blood pressure medication. Decrease salt intake and exercise on metoprolol tartrate and propranolol (4) Hypercholesterolemia: Code(s): E78.00 - Pure hypercholesterolemia, unspecified Plan: Avoid fried foods, chicken skin, eggs, butter margarine, pastries and meat. Be it pork or beef they have a lot of cholesterol LDL goal of less than 70 and triglyceride of less than 150. On atorvastatin 40 mg once a day (5) Aortic valve replaced: Comment: Bicuspid Dr. [address] [place] mechanical valve Code(s): Z95.2 - Presence of prosthetic heart valve Plan: Continue with anticoagulation (6) Obesity (BMI 30-39.9): Code(s): E66.9 - Obesity, unspecified Plan: Diet and exercise (7) (HFpEF) heart failure with preserved ejection fraction: Code(s): I50.30 - Unspecified diastolic (congestive) heart failure Plan: Presently on Bumex on beta blockers (8) Hypokalemia: Code(s): E87.6 - Hypokalemia Plan: Potassium replacement and will have to have a repeat blood work (9) Psoriatic arthritis: Comment: Humira started January 2023 Code(s): L40.50 - Arthropathic psoriasis, unspecified Plan: Patient follows up with Rheumatology (10) Gout: Comment: Allopurinol started February 2023 Code(s): M10.9 - Gout, unspecified Plan: Low purine diet and keep well hydrated. Orders: Orders Complete Blood Count Auto Diff Today Joey Shetty MD Z95.2 - Presence of prosthetic heart valve Comprehensive Met. Panel Today Joey Shetty MD Z95.2 - Presence of prosthetic heart valve Magnesium Today Joey Shetty MD Z95.2 - Presence of prosthetic heart valve Lipid Panel Today Joey Shetty MD E78.00 - Pure hypercholesterolemia, unspecified, Z95.2 - Presence of prosthetic heart valve Vitamin B12 and Folate Today Joey Shetty MD Z95.2 - Presence of prosthetic heart valve Free T4 (Free Thyroxine) Today Joey Shetty MD Z95.2 - Presence of prosthetic heart valve Prostate Specific Antigen Scr Today Joey Shetty MD Z95.2 - Presence of prosthetic heart valve Thyroid Stimulating Hormone Today Joey Shetty MD Z95.2 - Presence of prosthetic heart valve B Type Natriuretic Peptide Today Joey Shetty MD Z95.2 - Presence of prosthetic heart valve Medications: New bumetanide 2 mg PO DAILY 90 tabs 3RF Joey Shetty MD I50.30 - Unspecified diastolic (congestive) heart failure amoxicillin (4 x 500 mg) 2,000 mg orally 1 hour before the procedure; 4 caps 5RF Joey Shetty MD Z95.2 - Presence of prosthetic heart valve Changed From allopurinol 300 mg (3 x 100 mg) PO DAILY 90 tabs 5RF M10.9 - Gout, unspecified To allopurinol 200 mg PO DAILY M10.9 - Gout, unspecified LINNEA Steven- Refilled aspirin 81 mg PO DAILY 90 tabs 3RF Joey Shetty MD I25.10 - Atherosclerotic heart disease of [place] coronary artery without angina pectoris Coding Level of Care Code Est Pt Level 4 (64504) Diagnoses Coronary artery disease involving [place] coronary artery of [place] heart without angina pectoris I25.10 Coronary Disease-Associated Artery/Lesion type: [place] artery [place] vs. transplanted heart: [place] heart Associated angina: without angina Aortic aneurysm I71.9 Essential hypertension I10 Hypertension type: essential hypertension Hypercholesterolemia E78.00 Aortic valve replaced Z95.2 Obesity (BMI 30-39.9) E66.9 (HFpEF) heart failure with preserved ejection fraction I50.30 Hypokalemia E87.6 Psoriatic arthritis L40.50 Gout M10.9
== END 2023-08-17 09:58 | disposition home or self-care (01) ==
PROVIDERS: PCP Internal Medicine; Visit Provider Internal Medicine
DX: I25.10 Atherosclerotic heart disease of native coronary artery without angina pectoris (principal); I71.9 Aortic aneurysm of unspecified site, without rupture; I11.0 Hypertensive heart disease with heart failure; I50.30 Unspecified diastolic (congestive) heart failure; E78.00 Pure hypercholesterolemia, unspecified; Z95.2 Presence of prosthetic heart valve; E87.6 Hypokalemia; L40.50 Arthropathic psoriasis, unspecified; M10.9 Gout, unspecified
CPT/HCPCS: 99214

== ENCOUNTER → 2023-08-18 10:11 | Outpatient (BNVA) | payer MEDICARE, SELFPAY | PROVIDERS: PCP Internal Medicine; Visit Provider Internal Medicine ==

== ENCOUNTER 2023-08-24 07:39 | Outpatient (REF) | payer MEDICARE, SELFPAY ==
[2023-08-24 07:59] LABS: MANUAL DIFF FLAG NO
[2023-08-24 08:32] LABS: Basophils Absolute Auto 0.1 X10*3/uL (0.0-0.2); Basophils Percent Auto 1.4 % (0-2); Eosinophils Absolute Auto 0.3 X10*3/uL (0.0-0.4); Eosinophils Percent Auto 4.1 % (0-4); Hematocrit 40.8 % (42.0-52.0); Hemoglobin 14.2 g/dl (14.0-18.0); Imm Gran Abs Auto 0.02 X10*3/uL (0.00-0.03); Imm Gran Pct Auto 0.3 % (0.0-0.4); Lymphocytes Absolute Auto 1.8 X10*3/uL (1.2-4.9); Mean Corpuscular HGB Conc 34.8 g/dl (31.0-36.0); Mean Corpuscular Hemoglobin 33.3 pg (27.0-33.0); Mean Corpuscular Volume 95.8 fL (80.0-98.0); Mean Platelet Volume 9.9 fL (9.4-12.4); Monocytes Absolute Auto 0.7 X10*3/uL (0.1-1.2); Monocytes Percent Auto 11.1 % (2-11); Neutrophils Absolute Auto 3.7 x10*3/uL (2.0-8.3); Neutrophils Percent Auto 56.1 % (45-73); Platelet Count 229 X10*3/uL (160-400); Red Blood Count 4.26 X10*6/uL (4.60-5.80); Red Cell Distribution Width 14.1 % (11.0-16.0); White Blood Count 6.7 X10*3/uL (4.8-10.8)
[2023-08-24 08:35] LABS: B Type Natriuretic Peptide 361 pg/mL (<100)
[2023-08-24 09:12] LABS: Alanine Aminotransferase 18 U/L (0-40); Albumin Level 4.2 g/dL (3.5-5.0); Alkaline Phosphatase 70 U/L (39-117); Anion Gap 13 (12-20); Aspartate Amino Transferase 42 U/L (5-37); Blood Urea Nitrogen 18 mg/dL (9-16); Calcium 9.8 mg/dL (8.4-10.2); Carbon Dioxide 32 mmol/L (22-29); Chloride 99 mmol/L (96-108); Cholesterol 151 mg/dL (<200); Estimated Glomerular Filt Rate > 60; Glucose Random 118 mg/dL (60-115); HDL Cholesterol 50 mg/dL (>40); LDL Cholesterol Calculated 71 mg/dL (<100); Magnesium 2.3 mg/dL (1.6-2.6); Potassium 3.8 mmol/L (3.3-5.1); Sodium 140 mmol/L (135-145); Total Protein 7.2 g/dL (6.5-8.0); Triglycerides 151 mg/dL (<150)
[2023-08-24 09:30] LABS: Folate 4.9 ng/mL (> or = 4.0); Prostate Specific Antigen Scr 0.63 ng/mL (<0.05-4.0); Vitamin B12 549 pg/mL (200-900)
[2023-08-24 09:32] LABS: Free T4 (Free Thyroxine) 0.91 ng/dL (0.71-1.85); Thyroid Stimulating Hormone 1.11 uIU/mL (0.32-4.0)
== END 2023-08-24 07:40 | disposition home or self-care (01) ==
LOC: HO.LAB 07:39
PROVIDERS: PCP Internal Medicine; Visit Provider Internal Medicine
DX: E78.00 Pure hypercholesterolemia, unspecified (principal); Z95.2 Presence of prosthetic heart valve; Z12.5 Encounter for screening for malignant neoplasm of prostate
CPT/HCPCS: 36415; 80053; 80061; 82607; 82746; 83735; 83880; 84153; 84439; 84443; 85025

== ENCOUNTER → 2023-08-25 14:09 | Outpatient (BNVA) | payer MEDICARE, SELFPAY | PROVIDERS: PCP Internal Medicine; Visit Provider Internal Medicine ==

== ENCOUNTER 2023-08-28 12:44 | Outpatient (AMB) | payer MEDICARE, SELFPAY ==
--- NOTE | 2023-08-28 12:49 | MHC.OFFVIS ---
Vital Signs 08/28/23 12:51 Height 6 ft 1 in Weight 235 lb 2 oz BMI 31.0 Intake Visit Reasons: 5M follow up-CONF Intake Note: Patient presents for 5 month follow up. patient has no issues or concerns today. Allergies rosuvastatin Allergy (Severe, Verified 09/08/23 11:22) muscle aches HPI Comments Details: 68 -yr-old male presents for f/u visit. Pt reports the following interval medical history changes: Pt reports he had 2 back to back hospitalizations in May, while in [place], d/t increased SOB. Initial hospital dx- for COPD exacerbation and congestive heart failure. And the a week later for atypical pneumonia treated with Levaquin. Since discharge, he has been feeling better. Feels the tremor is increased. The tremor is increased when he is anxious, though he is not generally anxious. May have to switch hands when he is eating. The tremor interferes when playing golf- the golf club will shake when the club is hanging low. Plays golf at various times- mid-morning or late afternoon. Writing is ok, as long as he can support his forearm. He does shake at rest. Pt's current tremor medication regimen: CD-LD 25-100mg 2 tabs tid (breakfast, lunch, after dinner/before bed). Denies nausea, hallucinations, falls, lightheadedness, dyskinesias. ADL's: Ind, but has to sit to don lower body clothing Swallowing: None Drooling: None Orthostatic lightheadedness: None, stands slowly Constipation: None Urinary symptoms: None Tremor: as above Dyskinesia: None Stiffness: Stiffness in his BLE legs and knees, or has been stationary for a while- improves w/ movement. No cramps. Gait changes: Unsteady if standing on one foot Freezing: None Falls: None Mood: Stable Hallucinations: None Memory: Good Sleep: Ok Exercise: Not walking much. Not much exercise- d/t resp s/s. [facility] Medical History Aortic aneurysm Chronic restrictive lung disease COPD (chronic obstructive pulmonary disease) Coronary artery disease Essential tremor Hypercholesterolemia Hypertension Pulmonary fibrosis Pulmonary nodules Syncope Surgical History S/P placement of cardiac pacemaker Aortic valve replaced History of aneurysm History of heart artery stent History of open reduction and internal fixation (ORIF) procedure Family History Mother No problems noted. Father No problems noted. Social History Housing: House Alcohol intake: current Alcohol intake frequency: a few times a week Alcohol type: beer Patient Tobacco Use Status: Former Tobacco user Quit Date: 1996 Tobacco use type: Cigarette e-Cigarette/Vaping Use: Never Used Second Hand Smoke Exposure: No service: No Current occupational status: employed Cognitive needs: No Hearing needs: No Vision needs: Yes Review of Systems Const All systems reviewed & are unremarkable except as noted in HPI and below Physical Exam Vital Signs: BMI result Body Mass Index 31.0 Const General: cooperative and no acute distress Resp Effort & Inspection: normal respiratory effort and able to speak in complete sentences Neuro Other: General: A&O x's 3 Expression: Ok Voice: Intact Tremor: Mild LUE rest tremor, LUE postural tremor, BUE wing beat tremor Tone: Mild LUE tone Dyskinesia: None FFM: Ok Foot taps: LLE mildly decreased Gait: Steady gait Psych: Pleasant affect Assessment & Plan Assessment & Plan (1) Essential tremor: Code(s): G25.0 - Essential tremor Category: Medical (2) Nocturnal leg cramps: Code(s): G47.62 - Sleep related leg cramps Category: Medical Plan Continue Sinemet 25/100 mg 2 tabs TID. May try 1/2-1 tab prior to golfing. Continue Propranolol 10 mg BID. Monitor tremors, stiffness, cramps. Coding Level of Care Code Est Pt Level 4 (63617) Diagnoses Essential tremor G25.0 Nocturnal leg cramps G47.62
[2023-08-28 12:51] VITALS: BMI 31.0
== END 2023-08-28 14:00 | disposition home or self-care (01) ==
PROVIDERS: PCP Internal Medicine; Visit Provider Nurse Practitioner Family
DX: G25.0 Essential tremor (principal); G47.62 Sleep related leg cramps
CPT/HCPCS: 99214

== ENCOUNTER → 2023-08-28 12:44 | Outpatient (BNVA) | payer MEDICARE, SELFPAY | PROVIDERS: PCP Internal Medicine; Visit Provider Nurse Practitioner Family | DX: G25.0 Essential tremor (principal); G47.62 Sleep related leg cramps | CPT/HCPCS: 99212 ==

== ENCOUNTER → 2023-09-01 09:59 | Outpatient (BNVA) | payer MEDICARE, SELFPAY | PROVIDERS: PCP Internal Medicine; Visit Provider Internal Medicine ==

== ENCOUNTER 2023-09-08 10:40 | Outpatient (REF) | payer MEDICARE, SELFPAY ==
[2023-09-08 09:15] VITALS: PULSE 82; RESP 16; O2SAT 95
--- NOTE | 2023-09-08 16:06 | PFT_ITS ---
Flows: FEV1: 37 % of predicted at 1.33 L FVC: 40 % of predicted at 1.88 L FEV1/FVC: 71 % Bronchodilator response: Present in small to medium airways only Volumes: Total lung capacity: 51 % of predicted at 4.03 L Residual volume: 69 % of predicted at 1.91 L Slow vital capacity: 41 % of predicted at 2.11 L Expiratory reserve volume: 27 % of predicted at 0.40 L Diffusion capacity: Mildly decreased, corrects to normal after adjustment for alveolar ventilation. Impression: Severe restrictive ventilatory defect with bronchodilator response in small to medium airways only. Decreased expiratory reserve volume suggests extrathoracic restriction likely secondary to abdominal obesity. Combination of decreased diffusion capacity with restrictive ventilatory defect suggests underlying pulmonary parenchymal disease. Clinical correlation is advised. [facility]
== END 2023-09-08 10:41 | disposition home or self-care (01) ==
LOC: HO.RESP 10:40
PROVIDERS: PCP Internal Medicine; Visit Provider Hospitalist
DX: J98.4 Other disorders of lung (principal)
CPT/HCPCS: 94010; 94640; 94727; 94729

== ENCOUNTER → 2023-09-08 16:06 | Outpatient (BNV) | payer MEDICARE, SELFPAY | PROVIDERS: PCP Internal Medicine; Visit Provider Internal Medicine Pulmonary Disease | DX: J98.4 Other disorders of lung (principal) | CPT/HCPCS: 94060; 94727; 94729 ==

== ENCOUNTER → 2023-09-15 11:40 | Outpatient (BNVA) | payer MEDICARE, SELFPAY | PROVIDERS: PCP Internal Medicine; Visit Provider Internal Medicine ==

== ENCOUNTER → 2023-09-22 09:25 | Outpatient (BNVA) | payer MEDICARE, SELFPAY | PROVIDERS: PCP Internal Medicine; Visit Provider Internal Medicine ==

== ENCOUNTER 2023-09-28 15:28 | Outpatient (AMB) | payer MEDICARE, SELFPAY ==
[2023-09-28 15:36] VITALS: PULSE 89; O2SAT 96; BMI 31.1
--- NOTE | 2023-09-28 15:36 | A.OFFVIS_ITS ---
Vital Signs 09/28/23 15:36 Height 6 ft 1 in Weight 235 lb 14.314 oz BMI 31.1 Pulse 89 Pulse Source Pulse Oximeter Pulse Oximetry (%) 96 Oxygen Delivery Method Room Air Intake Visit Reasons: COPD/PFT Follow Up Communications Consultant Required: No Allergies rosuvastatin Allergy (Severe, Verified 09/28/23 15:38) muscle aches HPI Comments Details: The patient is a 68-year-old gentleman with a history of former smoking apparently was having respiratory symptoms back for several years now. Back in 2015 he was evaluated by Pulmonary in had a pulmonary function studies demonstrating a moderate restrictive ventilatory defect. CT scan of the chest demonstrated some interstitial changes the bases suggesting some pulmonary fibrosis and given a diagnosis of interstitial lung disease. In the meantime he also has valvular disease and status post aortic mechanical valve replacement and does follow up closely with cardiology for his coronary artery disease. Patient is noticed that for the last several months he has had progressive shortness of breath. Moderate to severe to the point that he could not even walk to the mailbox from his home due to shortness of breath. He has lost weight since he loss had his PFTs in 2016 but he still overweight. More recently he did undergo a repeat CT scan of the chest demonstrating some persistent changes to the lungs, but, those were done at [facility] and I would have to review those films. Explained to him that that likely that he does have some interstitial changes and we have to review his previous imaging to see if he has any progression. He denies any exposure to any farms or any significant occupational exposures. He says he does live in an old house and does have some asbestos exposed but he has not worked directly with the asbestos. He was evaluated by his primary care doctor because of the shortness of breath and he was placed on Advair. He feels that his breathing has dramatically gotten much improved. 09/02/2022 the patient is here for pulmonary follow-up he otherwise patient is doing about the same. Continue have it on exertion moderate severity. He is still working. The patient is not exercising regularly. We did offer him pulmonary rehabilitation but is not interested. I did give him a online pulmonary rehab that he consider. We did look at his pulmonary function studies and he does have a total lung capacity 55% predicted. Explained to him that this is the major and cart of his respiratory symptoms. We did look at the CAT scan that he had back in 02/28/2020 demonstrating some bibasilar scarring in addition to significant mosaic pattern. She continues use the budesonide and also albuterol. He does not feel like the albuterol is working effectively. Therefore, will switch him to DuoNeb. He is going to have another CT scan in February in regards of his aneurysm and also we can address the pulmonary issues and will repeat his PFTs in a year's time. 09/28/2023 the patient is here for a pulmonary follow-up visit. He continues have significant dyspnea on exertion. Moderate severity. Back in May the patient was admitted to hospital in [facility] for respiratory symptoms. He was initially admitted and discharged in then he went back to the hospital. He did have a CT scan of the chest demonstrating reticulonodular opacities bilaterally suggesting of an atypical pneumonia. The patient is treated appropriately. She was also having significant rhonchi and wheezing at the time. He also was volume overloaded and treated with diuretics. He was able to be discharged. He more recently did follow-up with a CT scan of here. I did personally reviewed. He has some areas of atelectasis primarily the left base and some evidence of chronic bronchitis and some mosaic pattern. He has been on nebulized therapy. Although I do believe he did better on Trelegy inhaler. Therefore I did give him a sample for month and I did send a 90 day supply to the pharmacy. We will go ahead and stop the formoterol and he will hopefully wean off the budesonide. The patient also had pulmonary function studies which we personally reviewed. He has a mixed both obstructive and restrictive ventilatory defects. Both pretty significant. Likely both contributing to his dyspnea symptoms. The patient is willing to start pulmonary rehabilitation which I believe will also help him with his underlying respiratory issues. He also has a cardiac history and aneurysms. He will be following up with Cardiology closely. It is reassuring that the CT scan did not see any signi ficant changes in the aneurysms. [facility] Medical History Aortic aneurysm Chronic restrictive lung disease COPD (chronic obstructive pulmonary disease) Coronary artery disease Essential tremor Hypercholesterolemia Hypertension Pulmonary fibrosis Pulmonary nodules Syncope Surgical History S/P placement of cardiac pacemaker Aortic valve replaced History of aneurysm History of heart artery stent History of open reduction and internal fixation (ORIF) procedure Family History Mother No problems noted. Father No problems noted. Social History Housing: House Alcohol intake: current Alcohol intake frequency: a few times a week Alcohol type: beer Patient Tobacco Use Status: Former Tobacco user Quit Date: 1996 Tobacco use type: Cigarette e-Cigarette/Vaping Use: Never Used Second Hand Smoke Exposure: No service: No Current occupational status: employed Cognitive needs: No Hearing needs: No Vision needs: Yes Review of Systems Const Denies body aches, Denies chills, Denies fever(s), Denies headache(s) and Denies weakness Eyes Denies blurry vision, Denies change in vision and Denies other visual disturbances ENT Denies dizziness, Denies headache(s), Denies nasal trauma, Denies neck pain, Denies disequilibrium, Denies sinus pressure and Denies sore throat Card Denies chest pain, Denies chest pain with activity, Denies leg edema, Denies palpitations, Denies dyspnea, Reports dyspnea on exertion, Denies orthopnea and Denies paroxysmal nocturnal dyspnea Resp Reports cough, Denies pain on inspiration, Denies dyspnea, Reports dyspnea on exertion and Denies wheezing GI Denies abdominal pain, Denies change in bowel habits, Denies constipation, Denies diarrhea, Denies nausea and Denies vomiting Denies hematuria, Denies dysuria, Denies urinary frequency and Denies urinary urgency Musc Denies back pain, Denies arthralgias, Denies joint swelling and Denies neck pain Skin/Breast Denies lesions and Denies rash Neuro Denies confusion, Denies dizziness, Denies headache(s), Denies paresthesias, Denies disequilibrium and Denies weakness Psych Denies anxiety, Denies confusion, Denies depression and Denies suicidal ideation Endo Denies polydipsia, Denies polyuria and Denies palpitations Aller/Immun Denies wheezing Physical Exam Vital Signs: Last Vital Signs Pulse 89 09/28/23 15:36 Pulse Ox 96 09/28/23 15:36 Oxygen Delivery Method Room Air 09/28/23 15:36 BMI result Body Mass Index 31.1 Const General: No confusion Orientation/consciousness: No confusion HEENT General nose exam: Abnormal external nose present and Nasal discharge present Eyes Pupils: Equal, round and reactive pupils present Neck Neck: Yes normal visual inspection, Yes full ROM and Yes no lymphadenopathy Chest Chest palpation & inspection: normal inspection of the chest Resp Auscultation: diminished lung sounds Cardio Rate: regular rate Rhythm: regular rhythm Heart sounds: S1 normal heart sound present and S2 normal heart sound present GI Palpation (GI): Soft to palpation and nontender Auscultation: normal bowel sounds General: Yes no CVA tenderness Back/Spine/Pelvis Back: no CVA tenderness Skin General skin exam: rashes and/or lesions noted Neuro General: No confusion Cranial nerves: Yes Equal, round and reactive pupils present Assessment & Plan Assessment & Plan (1) COPD (chronic obstructive pulmonary disease): Code(s): J44.9 - Chronic obstructive pulmonary disease, unspecified Category: Medical Qualifiers: COPD type: unspecified COPD Qualified Code(s): J44.9 - Chronic obstructive pulmonary disease, unspecified Plan: Duonebs BID Decrease Budesonide as tolerated ideally to 0.25mg to minimize risk of worsening cataracts (2) Pulmonary fibrosis: Comment: Small area of scarring at the left base. No evidence of active ILD. Code(s): J84.10 - Pulmonary fibrosis, unspecified Category: Medical (3) Pulmonary nodules: Code(s): R91.8 - Other nonspecific abnormal finding of lung field Category: Medical (4) Chronic restrictive lung disease: Code(s): J98.4 - Other disorders of lung Category: Medical Plan Start Trelegy 200 Duoneb BID Budesonide wean off start pulmonary rehab short-acting beta agonist as needed follow-up in 6 months Orders: Orders Pulmonary Rehab Today J44.9 - Chronic obstructive pulmonary disease, unspecified Medications: New gzjadaehybf-oykzguadg-dcyjbnsc 200-62.5-25 mcg (Trelegy Ellipta) 1 inh inhalation DAILY 3 ea 3RF 90 days Refilled albuterol sulfate 90 mcg/actuation (Ventolin HFA) 2 puffs inhalation Q6H PRN 8.5 grams 3RF shortness of breath or wheezing J44.9 - Chronic obstructive pulmonary disease, unspecified Coding Level of Care Code Est Pt Level 4 (80133) Diagnoses Chronic obstructive pulmonary disease, unspecified COPD type J44.9 COPD type: unspecified COPD Pulmonary fibrosis J84.10 Pulmonary nodules R91.8 Chronic restrictive lung disease J98.4 Time Spent (min) 18
== END 2023-09-28 16:12 | disposition home or self-care (01) ==
PROVIDERS: PCP Internal Medicine; Visit Provider Hospitalist
DX: J44.9 Chronic obstructive pulmonary disease, unspecified (principal); J84.10 Pulmonary fibrosis, unspecified; R91.8 Other nonspecific abnormal finding of lung field; J98.4 Other disorders of lung
CPT/HCPCS: 99214

== ENCOUNTER → 2023-09-28 15:28 | Outpatient (BNVA) | payer MEDICARE, SELFPAY | PROVIDERS: PCP Internal Medicine; Visit Provider Hospitalist | DX: J44.9 Chronic obstructive pulmonary disease, unspecified (principal); J84.10 Pulmonary fibrosis, unspecified; J98.4 Other disorders of lung; J91.8 Pleural effusion in other conditions classified elsewhere; Z87.891 Personal history of nicotine dependence | CPT/HCPCS: 99212 ==

== ENCOUNTER 2023-09-29 08:23 | Outpatient (AMB) | payer MEDICARE, SELFPAY ==
--- NOTE | 2023-09-29 08:33 | MHC.OFFVISCO ---
Intake Intake Visit Reasons: Anticoagulation Allergies rosuvastatin Allergy (Severe, Verified 09/29/23 08:30) muscle aches Medication List - Last Reconciled 09/29/23 by Latisha Ndiaye RN albuterol sulfate 90 mcg/actuation (Ventolin HFA) 2 puffs inhalation Q6H PRN allopurinol 200 mg PO DAILY amoxicillin 2,000 mg orally 1 hour before the procedure; aspirin 81 mg PO DAILY atorvastatin 40 mg PO DAILY budesonide 0.5 mg inhalation BID bumetanide 2 mg PO DAILY calcipotriene 0.005% appl topical carbidopa-levodopa 25-100 mg 2 tabs PO TID 90 days cholecalciferol (vitamin D3) 50 mcg PO DAILY kezmwoxlsuc-grlixiavm-jxwgbshd 200-62.5-25 mcg (Trelegy Ellipta) 1 inh inhalation DAILY 90 days Humira(CF) Pen (adalimumab) 40 mg (0.4 mL) subcut Q2W NS ipratropium-albuterol 0.5 mg-3 mg(2.5 mg base)/3 mL 3 mL inhalation BID 90 days isosorbide mononitrate ER 30 mg PO DAILY isosorbide mononitrate ER 60 mg PO DAILY latanoprost 0.005% 0 drps ophthalmic (eye) magnesium oxide 800 mg PO DAILY metoprolol tartrate 75 mg PO BID nebulizers As directed potassium chloride ER (Klor-Con M) 20 mEq PO BID propranolol 10 mg PO BID 90 days warfarin 7.5 mg See Protocol PO .QD warfarin 5 mg See Protocol PO DAILY Nursing Note Pt to ACS for meter to meter check. Pt has demonstrated good technique using the meter. Pt POC 2.5, ACS POC 2.4 therapeutic range is 2.5-3.5. Last 5 pt POC's from pt's machine matched to those reported to ACS. POC on 09/21 did not match. Pt's machine showed and INR of 2.1. INR reported to ACS via [employer] was 2.6. Pt instruscted on improtance of accurate INR reporting. Medications and supplements reviewed No changes in health, diet, medications, or supplements, Denies any signs and symptoms of bleeding or bruising or clotting. Bleeding, bruising, clotting discussed Nutritional guidance given. Food list reviewed. Pt to avoid greens the next 2 days Dose: usual dose of 7.5mg X 3 days and 3.75mg X 4 days F/U INR: 1 week Patient verbalizes understanding of instructions given Anti-Coag Initial Assessment Social Hx Patient Tobacco Use Status: Former Tobacco user Quit Date: 1996 Tobacco use type: Cigarette alcohol intake: current Alcohol intake frequency: a few times a week Questionnaires HAS-BLED Does the patient had uncontrolled Hypertension?: No Does the patient have renal disease?: No Does the patient have liver disease?: No Does the patient have a history of stroke?: No Has the patient had major bleeding or predisposition to bleeding?: No Does the patient have labile INRs?: No Is the patient over 65 years of age?: Yes Is the patient on medications that gives them a predisposition to bleeding?: Yes Does the patient use alcohol?: Yes HAS-BLED Score: 3 CHADSVASC Age: 66-74 Gender: Male Does the patient have a history of CHF?: Yes Does the patient have a history of Hypertension?: Yes Does the patient have a history of Stroke/TIA/Thromboembolism?: No Does the patient have a history of Vascular Disease (prior MD, PAD or aortic plaque)?: Yes Does the patient have a history of Diabetes?: No CHADS VACS Score: 4 Christian Prediction Score Rsk VTE Active Cancer: No Previous VTE, excluding superficial vein thrombosis: No Reduced mobility: No Already known Thrombophilic Condition: Yes With-in last month Trauma and/or Surgery: No Elderly 70 year or older: No Heart and/or Respiratory Failure: Yes Acute Myocardial infarction and/or Ischemic Stroke: Yes Acute Infection and/or Rheumatologic Disorder: No Obesity (BMI 30 or greater): Yes Ongoing Hormonal Treatment: No Score: 6 Christian Score less than 4; Low Risk of VTE Christian Score 4 or greater; High Risk of VTE Coding Level of Care Code Est Patient Level 2 Diagnoses Current use of anticoagulant therapy Z79.01 Time Spent (min) 30 Results AMB INR Fingerstick AMB INR Fingerstick 2.4 Last Edit by Latisha Ndiaye RN on 09/29/23 08:49 interface delay Assessment & Plan Assessment & Plan (1) Current use of anticoagulant therapy: Code(s): 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
[2023-09-29 08:49] LABS: Prothrombin Time Whole Bld POC 28.9 sec (11.1-13.5); ~PT, ~INR - Anti Coag Clinic 2.4 (0.9-1.1)
== END 2023-09-29 09:09 | disposition home or self-care (01) ==
LOC: HO.ACS 08:23
PROVIDERS: PCP Internal Medicine; Visit Provider Internal Medicine
DX: Z79.01 Long term (current) use of anticoagulants (principal)

== ENCOUNTER → 2023-09-29 08:23 | Outpatient (BNVA) | payer MEDICARE, SELFPAY | PROVIDERS: PCP Internal Medicine; Visit Provider Internal Medicine | DX: Z95.2 Presence of prosthetic heart valve (principal); Z79.01 Long term (current) use of anticoagulants; Z51.81 Encounter for therapeutic drug level monitoring | CPT/HCPCS: 85610; 99212 ==

== ENCOUNTER → 2023-10-06 12:07 | Outpatient (BNVA) | payer MEDICARE, SELFPAY | PROVIDERS: PCP Internal Medicine; Visit Provider Internal Medicine ==

== ENCOUNTER → 2023-10-13 10:04 | Outpatient (BNVA) | payer MEDICARE, SELFPAY | PROVIDERS: PCP Internal Medicine; Visit Provider Internal Medicine ==

== ENCOUNTER → 2023-10-20 11:07 | Outpatient (BNVA) | payer MEDICARE, SELFPAY | PROVIDERS: PCP Internal Medicine; Visit Provider Internal Medicine ==

== ENCOUNTER → 2023-10-27 10:06 | Outpatient (BNVA) | payer MEDICARE, SELFPAY | PROVIDERS: PCP Internal Medicine; Visit Provider Internal Medicine ==

== ENCOUNTER → 2023-11-03 12:31 | Outpatient (BNVA) | payer MEDICARE, SELFPAY | PROVIDERS: PCP Internal Medicine; Visit Provider Internal Medicine | DX: Z79.01 Long term (current) use of anticoagulants (principal) ==

== ENCOUNTER → 2023-11-17 09:31 | Outpatient (BNVA) | payer MEDICARE, SELFPAY | PROVIDERS: PCP Internal Medicine; Visit Provider Internal Medicine ==

== ENCOUNTER → 2023-12-01 10:20 | Outpatient (BNVA) | payer MEDICARE, SELFPAY | PROVIDERS: PCP Internal Medicine; Visit Provider Internal Medicine ==

== ENCOUNTER 2023-12-07 13:44 | Outpatient (AMB) | payer MEDICARE, SELFPAY ==
[2023-12-07 13:47] VITALS: BP 110/72; PULSE 76; O2SAT 96; BMI 31.7
--- NOTE | 2023-12-07 13:47 | A.OFFVIS_ITS ---
Vital Signs 12/07/23 13:47 Height 6 ft 1 in Weight 240 lb 1.334 oz BMI 31.7 BP 110/72 Blood Pressure Location Lt brachial Position Sitting Pulse 76 Pulse Source Pulse Oximeter Pulse Oximetry (%) 96 Oxygen Delivery Method Room Air Intake Visit Reasons: psa and gout/CM Intake Note: Patient last seen 04/07/23 presents today for follow up. Allergies rosuvastatin Allergy (Severe, Verified 12/07/23 13:48) muscle aches Medication List - Last Reconciled 12/07/23 by Valentin Egan MD albuterol sulfate 90 mcg/actuation (Ventolin HFA) 2 puffs inhalation Q6H PRN allopurinol 200 mg (2 x 100 mg) PO DAILY amoxicillin 2,000 mg orally 1 hour before the procedure; aspirin 81 mg PO DAILY atorvastatin 40 mg PO DAILY budesonide 0.5 mg inhalation BID bumetanide 2 mg PO DAILY calcipotriene 0.005% appl topical carbidopa-levodopa 25-100 mg 2 tabs PO TID 90 days cholecalciferol (vitamin D3) 50 mcg PO DAILY gocfgjuwvrk-piwowvsce-xqidixnx 200-62.5-25 mcg (Trelegy Ellipta) 1 inh inhalation DAILY 90 days Humira(CF) Pen (adalimumab) 40 mg (0.4 mL) subcut Q2W NS ipratropium-albuterol 0.5 mg-3 mg(2.5 mg base)/3 mL 3 mL inhalation BID 90 days isosorbide mononitrate ER 30 mg PO DAILY isosorbide mononitrate ER 60 mg PO DAILY latanoprost 0.005% 0 drps ophthalmic (eye) magnesium oxide 800 mg PO DAILY metoprolol tartrate 75 mg PO BID nebulizers As directed potassium chloride ER (Klor-Con M) 20 mEq PO BID propranolol 10 mg PO BID 90 days warfarin 7.5 mg See Protocol PO .QD warfarin 5 mg See Protocol PO DAILY HPI Comments Details: This is a 68-year-old male with psoriatic arthritis and gout who presents for follow-up. He has been on Humira since the fall. Also on allopurinol 200 mg daily. States that psoriatic arthritis is much better overall. Does not use any NSAIDs. In cleared up significantly. States that Humira is better than Otezla in terms of the skin and joints. He is also on allopurinol 200 mg daily. Has not had any gout issues recently. States that he had a couple of hospitalizations for pneumonia/COPD exacerbations in the winter [facility] Medical History Hearing deficit Chronic restrictive lung disease Pulmonary nodules Syncope Essential tremor Hypercholesterolemia Hypertension Coronary artery disease COPD (chronic obstructive pulmonary disease) Aortic aneurysm Pulmonary fibrosis Surgical History S/P placement of cardiac pacemaker Aortic valve replaced History of aneurysm History of heart artery stent History of open reduction and internal fixation (ORIF) procedure Family History Mother No problems noted. Father No problems noted. Social History Housing: House Alcohol intake: current Alcohol intake frequency: a few times a week Alcohol type: beer Patient Tobacco Use Status: Former Tobacco user Tobacco use type: Cigarette e-Cigarette/Vaping Use: Never Used Second Hand Smoke Exposure: No service: No Current occupational status: employed Cognitive needs: No Hearing needs: No Vision needs: Yes Review of Systems Musc Denies arthralgias, Denies joint swelling and Reports stiffness Skin/Breast Denies rash Physical Exam Vital Signs: Last Vital Signs Pulse 76 12/07/23 13:47 BP 110/72 12/07/23 13:47 Pulse Ox 96 12/07/23 13:47 Oxygen Delivery Method Room Air 12/07/23 13:47 BMI result Body Mass Index 31.7 Const General: cooperative, healthy appearing and comfortable Nutritional Appearance: obese Orientation/consciousness: patient oriented x3 Limitations: no limitations HEENT Head: Yes normocephalic and Yes atraumatic Mouth: moist mucous membranes Resp Effort & Inspection: normal respiratory effort and able to speak in complete sentences Cardio Rhythm: abnormal rhythm irregularly irregular Heart sounds: Murmur heart sound present Skin General skin exam: no rashes or lesions noted Neuro General: patient oriented x3 Extrem Other: Pitting edema of lowering extremities No active synovitis today Assessment & Plan Assessment & Plan (1) Psoriatic arthritis: Comment: Otelza ineffective Humira started January 2023 Code(s): L40.50 - Arthropathic psoriasis, unspecified Category: Medical Plan: This is a 68-year-old male with psoriasis, psoriatic arthritis, gout who presents for follow-up. His psoriatic arthritis and psoriasis is very well controlled on Humira 40 mg every other week. Discussed the association of CHF with TNF inhibitors. 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 Patient on allopurinol 200 mg daily. Will check uric acid level and adjust allopurinol dose accordingly (3) Psoriasis: Code(s): L40.9 - Psoriasis, unspecified Category: Medical Plan: Very well controlled on Humira (4) Osteoarthritis: Code(s): M19.90 - Unspecified osteoarthritis, unspecified site Category: Medical Qualifiers: Osteoarthritis location: multiple joints Osteoarthritis type: primary Qualified Code(s): M15.0 - Primary generalized (osteo)arthritis (5) Long-term use of immunosuppressant medication: Code(s): Z79.60 - MCFP (current) use of unspecified immunomodulators and immunosuppressants Category: Medical Plan: Patient had a couple of hospitalizations for pneumonia/COPD exacerbation winter in [place] Plan I spent 49 minutes reviewing patient's chart, evaluating patient, ordering diagnostic workup, counseling patient and documenting in the chart Orders: Orders Comprehensive Met. Panel Today L40.50 - Arthropathic psoriasis, unspecified HLA B27 Today M45.9 - Ankylosing spondylitis of unspecified sites in spine Uric Acid Today M10.9 - Gout, unspecified Complete Blood Count Auto Diff 3 Months L40.50 - Arthropathic psoriasis, unspecified Comprehensive Met. Panel 3 Months L40.50 - Arthropathic psoriasis, unspecified C Reactive Protein 3 Months L40.50 - Arthropathic psoriasis, unspecified Complete Blood Count Auto Diff Today L40.50 - Arthropathic psoriasis, unspecified C Reactive Protein Today L40.50 - Arthropathic psoriasis, unspecified Erythrocyte Sedimentation Rate Today L40.50 - Arthropathic psoriasis, unspecified Erythrocyte Sedimentation Rate 3 Months L40.50 - Arthropathic psoriasis, unspecified Coding Level of Care Code Est Pt Level 5 (85829) Diagnoses Psoriatic arthritis L40.50 Idiopathic chronic gout of multiple sites without tophus M1A.09X0 Gout site: multiple sites Gout etiology: idiopathic Chronicity: chronic Presence of tophus: without tophus Psoriasis L40.9 Primary osteoarthritis involving multiple joints M15.0 Osteoarthritis location: multiple joints Osteoarthritis type: primary Long-term use of immunosuppressant medication Z79.60
== END 2023-12-07 14:17 | disposition home or self-care (01) ==
PROVIDERS: PCP Internal Medicine; Visit Provider Student in an Organized Health Care Education/Training Program
DX: L40.50 Arthropathic psoriasis, unspecified (principal); M1A.09X0 Idiopathic chronic gout, multiple sites, without tophus (tophi); L40.9 Psoriasis, unspecified; M15.0 Primary generalized (osteo)arthritis; Z79.60 Long term (current) use of unspecified immunomodulators and immunosuppressants
CPT/HCPCS: 99215

== ENCOUNTER → 2023-12-07 13:44 | Outpatient (BNVA) | payer MEDICARE, SELFPAY | PROVIDERS: PCP Internal Medicine; Visit Provider Student in an Organized Health Care Education/Training Program | DX: L40.50 Arthropathic psoriasis, unspecified (principal); M1A.09X0 Idiopathic chronic gout, multiple sites, without tophus (tophi); L40.9 Psoriasis, unspecified; M15.0 Primary generalized (osteo)arthritis; Z79.60 Long term (current) use of unspecified immunomodulators and immunosuppressants | CPT/HCPCS: 99212 ==

== ENCOUNTER 2023-12-08 06:53 | Outpatient (REF) | payer MEDICARE, SELFPAY ==
[2023-12-08 07:19] LABS: MANUAL DIFF FLAG NO
[2023-12-08 08:02] LABS: Basophils Absolute Auto 0.1 X10*3/uL (0.0-0.2); Basophils Percent Auto 1.5 % (0-2); Eosinophils Absolute Auto 0.2 X10*3/uL (0.0-0.4); Hematocrit 42.5 % (42.0-52.0); Hemoglobin 14.6 g/dl (14.0-18.0); Imm Gran Abs Auto 0.03 X10*3/uL (0.00-0.03); Imm Gran Pct Auto 0.5 % (0.0-0.4); Immature Retic Fraction 19.1 % (2.3-13.4); Lymphocytes Absolute Auto 1.9 X10*3/uL (1.2-4.9); Lymphocytes Percent Auto 30.9 % (20-40); Mean Corpuscular HGB Conc 34.4 g/dl (31.0-36.0); Mean Corpuscular Hemoglobin 33.8 pg (27.0-33.0); Mean Corpuscular Volume 98.4 fL (80.0-98.0); Monocytes Absolute Auto 0.6 X10*3/uL (0.1-1.2); Monocytes Percent Auto 10.1 % (2-11); Neutrophils Absolute Auto 3.2 x10*3/uL (2.0-8.3); Platelet Count 225 X10*3/uL (160-400); Red Blood Count 4.32 X10*6/uL (4.60-5.80); Red Cell Distribution Width 14.8 % (11.0-16.0); Retic HGB Equivalent 36.5 pg (30.0-35.0); Reticulocyte Percent 2.1 % (0.5-1.8); Reticulocytes Absolute 0.092 X10*6/uL (0.026-0.095)
[2023-12-08 08:29] LABS: Alanine Aminotransferase 19 U/L (0-40); Albumin Level 4.3 g/dL (3.5-5.0); Alkaline Phosphatase 72 U/L (39-117); Anion Gap 14 (12-20); Aspartate Amino Transferase 49 U/L (5-37); Bilirubin Total 3.2 mg/dL (0.0-1.0); Blood Urea Nitrogen 15 mg/dL (9-16); Calcium 9.9 mg/dL (8.4-10.2); Carbon Dioxide 27 mmol/L (22-29); Chloride 102 mmol/L (96-108); Estimated Glomerular Filt Rate > 60; Glucose Random 112 mg/dL (60-115); Sodium 139 mmol/L (135-145); Total Protein 7.3 g/dL (6.5-8.0); Uric Acid 7.2 mg/dL (3.4-7.0)
[2023-12-08 08:39] LABS: B Type Natriuretic Peptide 243 pg/mL (<100)
[2023-12-08 08:41] LABS: Erythrocyte Sedimentation Rate 14 MM/HR (0-15)
[2023-12-08 08:49] LABS: Alanine Aminotransferase 21 U/L (0-40); Albumin Level 4.1 g/dL (3.5-5.0); Anion Gap 18 (12-20); Aspartate Amino Transferase 57 U/L (5-37); Blood Urea Nitrogen 14 mg/dL (9-16); Calcium 9.7 mg/dL (8.4-10.2); Carbon Dioxide 21 mmol/L (22-29); Chloride 103 mmol/L (96-108); Cholesterol 154 mg/dL (<200); Glucose Random 105 mg/dL (60-115); Potassium 4.1 mmol/L (3.3-5.1); Sodium 138 mmol/L (135-145); Total Protein 7.4 g/dL (6.5-8.0); Triglycerides 190 mg/dL (<150)
[2023-12-08 08:56] LABS: Alkaline Phosphatase 71 U/L (39-117); C Reactive Protein 0.26 mg/dL (< or = 0.50); Estimated Glomerular Filt Rate > 60; Ferritin 152 ng/mL (20-250); Free T4 (Free Thyroxine) 1.02 ng/dL (0.71-1.85); HDL Cholesterol 48 mg/dL (>40); LDL Cholesterol Calculated 68 mg/dL (<100); Thyroid Stimulating Hormone 1.07 uIU/mL (0.32-4.0)
[2023-12-08 09:01] LABS: Iron 113 mcg/dL (45-160); Percent Iron Saturation 34 % (15-50); Total Iron Binding Capacity 336 mcg/dL (228-428); Unsaturated Iron Binding 223 ug/dL; Vitamin B12 521 pg/mL (200-900)
[2023-12-08 09:27] LABS: Folate 9.4 ng/mL (> or = 4.0)
[2023-12-08 13:12] LABS: Basophils Absolute Auto 0.1 X10*3/uL (0.0-0.2); Basophils Percent Auto 1.9 % (0-2); Eosinophils Absolute Auto 0.2 X10*3/uL (0.0-0.4); Eosinophils Percent Auto 3.3 % (0-4); Hematocrit 42.2 % (42.0-52.0); Imm Gran Abs Auto 0.03 X10*3/uL (0.00-0.03); Imm Gran Pct Auto 0.5 % (0.0-0.4); Lymphocytes Percent Auto 31.9 % (20-40); MANUAL DIFF FLAG NO; Mean Corpuscular HGB Conc 35.5 g/dl (31.0-36.0); Mean Corpuscular Hemoglobin 34.2 pg (27.0-33.0); Mean Corpuscular Volume 96.1 fL (80.0-98.0); Mean Platelet Volume 10.4 fL (9.4-12.4); Monocytes Absolute Auto 0.6 X10*3/uL (0.1-1.2); Monocytes Percent Auto 9.3 % (2-11); Neutrophils Absolute Auto 3.4 x10*3/uL (2.0-8.3); Neutrophils Percent Auto 53.1 % (45-73); Platelet Count 235 X10*3/uL (160-400); Red Blood Count 4.39 X10*6/uL (4.60-5.80); Red Cell Distribution Width 14.7 % (11.0-16.0); White Blood Count 6.4 X10*3/uL (4.8-10.8)
[2023-12-14 14:07] LABS: HLA B27 Negative (Negative)
== END 2023-12-08 06:54 | disposition home or self-care (01) ==
LOC: HO.LAB 06:53
PROVIDERS: Absent Provider Student in an Organized Health Care Education/Training Program; PCP Internal Medicine; Visit Provider Internal Medicine
DX: I50.30 Unspecified diastolic (congestive) heart failure (principal); E78.00 Pure hypercholesterolemia, unspecified; M45.9 Ankylosing spondylitis of unspecified sites in spine; M10.9 Gout, unspecified; L40.50 Arthropathic psoriasis, unspecified
CPT/HCPCS: 36415; 80053; 80061; 82607; 82728; 82746; 83540; 83880; 84439; 84443; 84550; 85025; 85045; 85652; 86140; 86812

== ENCOUNTER → 2023-12-15 11:33 | Outpatient (BNVA) | payer MEDICARE, SELFPAY | PROVIDERS: PCP Internal Medicine; Visit Provider Internal Medicine ==

== ENCOUNTER → 2023-12-22 08:55 | Outpatient (BNVA) | payer MEDICARE, SELFPAY | PROVIDERS: PCP Internal Medicine; Visit Provider Internal Medicine ==

== ENCOUNTER 2023-12-28 14:41 | Outpatient (AMB) | payer MEDICARE, SELFPAY ==
[2023-12-28 14:42] VITALS: BP 110/74; PULSE 80; O2SAT 91; BMI 31.9
--- NOTE | 2023-12-28 14:42 | MHC.PC.OV ---
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 Operator Required: No Accompanied by: Self / Same As Patient Allergies rosuvastatin Allergy (Severe, Verified 12/28/23 14:43) muscle aches Tobacco use date assessed: 12/28/23 Fall risk assessment: No Falls in past year Last assessed Fall Risk: 12/28/23 Dental Screening Dental Screen Date: 12/28/23 Did you have a dental visit in the last 12 months?: Yes Did you have a dental problem in the last 6 months where you did not have access to dental care?: No Was dental information given to patient?: Patient has dentist HPI CHFm COPD HPI Details 68-year-old obese male with coronary artery disease history of aortic aneurysm hypertension hypercholesterolemia history of aortic valve replacement on anticoagulation congestive heart failure psoriatic arthritis and gout last seen in August 2023. Patient's colonoscopy is up-to-date 05/30/2021 3 years. Review of the notes has been following up with Rheumatology with a psoriatic arthritis Estefania recommended. 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 Avoiding heavy lifting and strenuous activities. Patient did see Pulmonary in September for COPD DuoNebs decrease budesonide due to cataract history pulmonary fibrosis having scarring no active interstitial lung disease Trelegy 200 mg once a day start pulmonary rehab. Echocardiogram done August 2023 normal left ventricular size EF 55% ascending aorta written here 6 cm mechanical valve good. August was seen by Neurology also for essential tremor advised Sinemet 25/100 mg 2 tablet 3 times a day and continuing with propranolol 10 mg twice a day. [facility] Medical History Hearing deficit Chronic restrictive lung disease Pulmonary nodules Syncope Essential tremor Hypercholesterolemia Hypertension Coronary artery disease COPD (chronic obstructive pulmonary disease) Aortic aneurysm Pulmonary fibrosis Surgical History S/P placement of cardiac pacemaker Aortic valve replaced History of aneurysm History of heart artery stent History of open reduction and internal fixation (ORIF) procedure Family History Mother No problems noted. Father No problems noted. Social History Housing: House Alcohol intake: current Alcohol intake frequency: a few times a week Alcohol type: beer Patient Tobacco Use Status: Former Tobacco user Tobacco use type: Cigarette e-Cigarette/Vaping Use: Never Used Second Hand Smoke Exposure: No service: No Current occupational status: employed Cognitive needs: No Hearing needs: No Vision needs: Yes Questionnaire PHQ-9 Over the last 2 weeks, how often have you been bothered by any of the following problems? 1. Little interest or pleasure in doing things: not at all 2. Feeling down, depressed, or hopeless: not at all 3. Trouble falling or staying asleep, or sleeping too much: not at all 4. Feeling tired or having little energy: not at all 5. Poor appetite or overeating: not at all 6. Feeling bad about yourself - or that you are a failure or have let yourself or your family down: not at all 7. Trouble concentrating on things, such as reading the newspaper or watching television: not at all 8. Moving or speaking so slowly that other people could have noticed. Or the opposite - being so fidgety or restless that you have been moving around a lot more than usual: not at all 9. Thoughts that you would be better off or of hurting yourself in some way: not at all Total score: 0 Depression Screening Interpretation: Negative Depression Screening Done: Yes Source: Developed by Drs. Phillip Douglas, Terra Guy, Carl Denney and colleagues, with an educational leslye from [employer]. Thrive Questionnaire Date Thrive assessed: 12/28/23 I am a: Patient What is your living situation today?: I have a steady place to live Within the past 12 months, did the food you bought not last and you didn't have the money to get more?: Never true Within the past 12 months, did you worry whether your food would run out before you got money to buy more?: Never true Do you have trouble paying for medicines?: No Do you have trouble getting transportation to medical appointments?: No Do you have trouble paying your heating and electricity bill?: No Do you have trouble taking care of your child, family member or friend?: No Do you have trouble with day-to-day activities such as bathing, preparing meals, shopping, managing finances, etc.?: No Are you currently unemployed and looking for a job?: No Are you interested in more education?: No Please select the resources that you would like help with: None Currently or been in a relationship where the following occur: No concerns reported THRIVE Score: 0 AUDIT C Alcohol Use Questionnaire (AUDIT-C) 1. How often do you have a drink containing alcohol?: 2-3 times a week 2. How many drinks containing alcohol do you have on a typical day when you are drinking?: 1 or 2 3. How often do you have six or more drinks on one occasion?: Never Total Score: 3 Score Reviewed/Action Taken: Yes PARESH-7 AMB Questionnaire PARESH-7 Date PARESH - 7 assessed: 12/28/23 Feeling nervous, anxious, or on edge: 0 = Not at all Not being able to stop or control worryin = Not at all Worrying too much about different things: 0 = Not at all Trouble relaxin = Not at all Being so restless that it is hard to sit still: 0 = Not at all Becoming easily annoyed or irritable: 0 = Not at all Feeling afraid as if something awful might happen: 0 = Not at all Total PARESH-7 score (0-4 normal; 5-9 mild; 10-14 moderate; 15-21 severe): 0 Source: Developed by Drs. Phillip Douglas, Terra Guy, Carl Denney and colleagues, with an educational leslye from [employer]. Physical exam (Primary Care) Vital Signs: Last Vital Signs Pulse 80 12/28/23 14:42 BP 110/74 12/28/23 14:42 Pulse Ox 91 L 12/28/23 14:42 Oxygen Delivery Method Room Air 12/28/23 14:42 BMI result Body Mass Index 31.9 Tobacco/Smoking Status: Tobacco use Status Tobacco use date assessed 12/28/23 12/28/23 14:49 Patient Tobacco Use Status Former Tobacco user 12/28/23 14:49 Tobacco use type Cigarette 12/28/23 14:49 e-Cigarette/Vaping Use Never Used 12/28/23 14:49 PHQ-9: PHQ-9 Score PHQ-9: Total score 0 12/28/23 14:49 Depression Screening Interpretation: Negative Thrive Assessment: Date of Thrive Assessment Date Thrive assessed 12/28/23 12/28/23 14:49 Currently or been in a relationship where the following occur: No concerns reported Const General: alert; No acute distress Eyes Conjunctivae: conjunctivae normal Resp Auscultation: clear to auscultation bilaterally Cardio Rate: regular rate Rhythm: regular rhythm GI Inspection: Yes normal to inspection Extrem General: Yes normal to inspection and No edema Assessment and Plan Assessment & Plan (1) COPD (chronic obstructive pulmonary disease): Code(s): J44.9 - Chronic obstructive pulmonary disease, unspecified Qualifiers: COPD type: unspecified COPD Qualified Code(s): J44.9 - Chronic obstructive pulmonary disease, unspecified Plan: Patient is being followed up by Pulmonary and has been started on Trelegy. Advised decrease in steroid nebs due to cataract (2) Aortic aneurysm: Comment: Dilatation of the thoracic aorta September 2016 4.5 cm July 2017 Code(s): I71.9 - Aortic aneurysm of unspecified site, without rupture Plan: Continue to be monitored by Cardiology and stable 2018. Continuing to monitor with echocardiogram. (3) Coronary artery disease: Comment: RCA stenosis nuclear perfusion April, July 2019 catheterization no severe obstructive coronary artery disease Code(s): I25.10 - Atherosclerotic heart disease of [place] coronary artery without angina pectoris Qualifiers: Coronary Disease-Associated Artery/Lesion type: [place] artery [place] vs. transplanted heart: [place] heart Associated angina: without angina Qualified Code(s): I25.10 - Atherosclerotic heart disease of [place] coronary artery without angina pectoris Plan: Control the cholesterol, weight, blood pressure, diabetes continue with aspirin and anticoagulation (4) Hypertension: Code(s): I10 - Essential (primary) hypertension Qualifiers: Hypertension type: essential hypertension Qualified Code(s): I10 - Essential (primary) hypertension Plan: Continue with blood pressure medication. Decrease salt intake and exercise patient on metoprolol 75 mg twice a day (5) Hypercholesterolemia: Code(s): E78.00 - Pure hypercholesterolemia, unspecified Plan: Avoid fried foods, chicken skin, eggs, butter margarine, pastries and meat. Be it pork or beef they have a lot of cholesterol LDL goal of less than 70 and triglyceride of less than 150 on atorvastatin 40 mg once a day (6) Essential tremor: Code(s): G25.0 - Essential tremor Plan: Has seen Neurology and placed on Sinemet and continuing with propranolol (7) Aortic valve replaced: Comment: Bicuspid Dr. [address] [place]# [address] mechanical valve Code(s): Z95.2 - Presence of prosthetic heart valve Plan: Continue with anticoagulation (8) Obesity (BMI 30-39.9): Code(s): E66.9 - Obesity, unspecified Plan: Diet and exercise (9) Psoriatic arthritis: Comment: Otelza ineffective Humira started January 2023 Code(s): L40.50 - Arthropathic psoriasis, unspecified Plan: Patient has been seen by Rheumatology and planned Estefania (10) (HFpEF) heart failure with preserved ejection fraction: Code(s): I50.30 - Unspecified diastolic (congestive) heart failure Plan: Weigh daily and continuing with the diuretic bumetanide 2 mg once a day Orders: Orders Complete Blood Count Auto Diff 3 Months I50.30 - Unspecified diastolic (congestive) heart failure Comprehensive Met. Panel 3 Months I50.30 - Unspecified diastolic (congestive) heart failure Thyroid Stimulating Hormone 3 Months I50.30 - Unspecified diastolic (congestive) heart failure Lipid Panel 3 Months E78.00 - Pure hypercholesterolemia, unspecified, I50.30 - Unspecified diastolic (congestive) heart failure B Type Natriuretic Peptide 3 Months I50.30 - Unspecified diastolic (congestive) heart failure Hemoglobin A1c 3 Months I50.30 - Unspecified diastolic (congestive) heart failure Coding Level of Care Code Est Pt Level 4 (60625) Diagnoses Chronic obstructive pulmonary disease, unspecified COPD type J44.9 COPD type: unspecified COPD Aortic aneurysm I71.9 Coronary artery disease involving [place] coronary artery of [place] heart without angina pectoris I25.10 Coronary Disease-Associated Artery/Lesion type: [place] artery [place] vs. transplanted heart: [place] heart Associated angina: without angina Essential hypertension I10 Hypertension type: essential hypertension Hypercholesterolemia E78.00 Essential tremor G25.0 Aortic valve replaced Z95.2 Obesity (BMI 30-39.9) E66.9 Psoriatic arthritis L40.50 (HFpEF) heart failure with preserved ejection fraction I50.30
--- OUTSIDE RECORDS SUMMARY | 2023-12-30 07:43 | XMS_ITS | Continuity of Care Document ---
Author Organization [facility] ter Address [address] [place] [id number]- Care Team Providers Care Manager Licensing Name Role Phone Joey Shetty MD Primary Care Physician Encounter [facility] [place] Date(s): 04/10/21 - 04/10/[address] [address]- Attending Physician: Joey Shetty MD Allergies, Adverse Reactions, Alerts Substance Reaction Severity Status NKA Active Medications aspirin 81 mg oral tablet 1 tablet = 81 mg, By Mouth, Daily, # 30 tablet, 0 Refills, Maintenance, 10/04/13 5:53:37, Tablet Start Date: 10/04/13 Status: Ordered atorvastatin 40 mg oral tablet 1 tablet = 40 mg, By Mouth, Daily at bedtime, # 30 tablet, 0 Refills, Maintenance, 10/04/13 15:53:41, Tablet, Pls D/C previous script for Simvastatin, 1 tablet By Mouth Daily at bedtime Start Date: 10/04/13 Status: Ordered Coumadin Tablet = 7.5 mg, By Mouth, Daily, 0 Refills, 04/03/05 18:35:53 Start Date: 04/03/05 Status: Ordered diltiazem 180 mg/24 hours oral capsule, extended release 1 capsule = 180 mg, By Mouth, Daily, # 30 capsule, 0 Refills, Maintenance, 10/04/13 15:53:44, CD Capsule, 1 capsule By Mouth Daily Start Date: 10/04/13 Status: Ordered isosorbide dinitrate 30 mg oral tablet 1 tablet = 30 mg, By Mouth, Daily at supper, # 180 tablet, 0 Refills, Maintenance, 07/19/19 7:29:00EDT, Tablet Start Date: 07/19/19 Status: Ordered isosorbide mononitrate 60 mg oral tablet, extended release 60 mg, 1, tablet, By Mouth, Daily in AM, # 30 tablet, Refills 0, Maintenance, 03/27/18 12:54:39 EST Start Date: 03/27/18 Status: Ordered Lasix 40 mg oral tablet 40 mg, 1, tablet, By Mouth, Daily, # 30 tablet, Refills 0, Maintenance, 03/27/18 12:53:02 EST Start Date: 03/27/18 Status: Ordered meloxicam 7.5 mg oral tablet 1 tablet = 7.5 mg, By Mouth, Daily, # 30 tablet, 0 Refills, Maintenance, 03/27/18 12:53:47 EST, Tablet Start Date: 03/27/18 Status: Ordered metoprolol 50 mg oral tablet 1 tablet = 50 mg, By Mouth, 2 times a day, # 180 tablet, 0 Refills, Maintenance, 10/04/13 5:51:50, Tablet Start Date: 10/04/13 Status: Ordered Otezla 30 mg oral tablet 1 tablet = 30 mg, By Mouth, 2 times a day, 0 Refills, Maintenance, 03/27/18 12:54:50 EST Start Date: 03/27/18 Status: Ordered propranolol 10 mg oral tablet 10 mg, 1, tablet, By Mouth, 2 times a day, # 60 tablet, Refills 0, Maintenance, 06/30/19 14:59:00 EST Start Date: 06/30/19 Status: Ordered Sinemet 25 mg-100 mg oral tablet 1 tablet, By Mouth, 3 times a day, # 90 tablet, 0 Refills, Maintenance, 03/27/18 12:35:29 EST, Tablet Start Date: 03/27/18 Status: Ordered Social History Social History Type Response Smoking Status Former smoker entered on: 02/06/17 Sex
--- OUTSIDE RECORDS SUMMARY | 2023-12-30 07:43 | XMS_ITS | Continuity of Care Document ---
Author Organization [facility] Address [address] [place] [id number]- Care Team Providers Care Color Room Attendant Name Role Phone Po Joey MEJIA Primary Care Physician [phone] Encounter [facility] Date(s): 06/11/21 - 07/11/21 [facility] Cardiac Surgery [address] [place] [id number] Allergies, Adverse Reactions, Alerts No Known Allergies Medications aspirin 81 mg oral tablet 1 [...]
--- OUTSIDE RECORDS SUMMARY | 2023-12-30 07:43 | XMS_ITS | Continuity of Care Document ---
Author Organization [facility] Address [address] [place] [id number]- Care Team Providers Care Dairy Consultant Name Role Phone Po Joey MEJIA Primary Care Physician [phone] [place] [facility] - 09/20/21 [facility] Cardiac Surgery [address] [place] [id number] Attending Physician: Maulik Olvera Admitting Physician: AdmtrMaulik Referring Physician: Admtr, Ar8 Allergies, Adverse Reactions, Alerts No Known Allergies [...] EST, Tablet Start Date: 03/27/18 Status: Ordered Vital Signs Most recent to oldest [Reference Range]: 1 Height 186 cm (06/15/20 3:16 PM) Social History Social History Type Response Smoking Status Former smoker entered on: 02/06/17 Sex
--- OUTSIDE RECORDS SUMMARY | 2023-12-30 07:43 | XMS_ITS | Continuity of Care Document ---
Author Organization [facility] Address [address] [place] [id number]- Care Team Providers Care Non Categorical Preschool Teacher Name Role Phone Po Joey MEJIA Primary Care Physician [phone] Encounter [facility] [place] Date(s): 06/15/20 - 07/15/20 [facility] Cardiac Surgery [address] [place] [id number] Attending Physician: Maulik Olvera Admitting Physician: Admtr, Ar8 Referring Physician: Admtr, Ar8 Allergies, Adverse Reactions, Alerts Substance Reaction Severity [...]
--- OUTSIDE RECORDS SUMMARY | 2023-12-30 07:43 | XMS_ITS | Continuity of Care Document ---
Author Organization [facility] Address [address] [place] [address]- Care Team Providers Care Luncheonette Manager Name Role Phone Joey Shetty MD Primary Care Physician Encounter [facility] [place] Date(s): 09/11/23 - 09/18/23 [facility] [address] [place] [address]- Encounter Diagnosis Right knee pain(Discharge Diagnosis) - 09/11/23 Effusion of right knee(Discharge Diagnosis) - 09/11/23 Attending Physician: Don SOLE INKER, Louisa Referring Physician: Joey Shetty MD Allergies, Adverse Reactions, Alerts No Known Allergies [...] at bedtime Start Date: 10/04/13 Status: Ordered bumetanide 2 mg oral tablet 1 tablet = 2 mg, By Mouth, Daily, # 30 tablet, 0 Refills, Maintenance, 09/11/23 12:49:00 EDT, Tablet, Partial fill upon patient request if the prescription is for a schedule II opioid drug. Start Date: 09/11/23 Status: Ordered Coumadin Tablet = 7.5 mg, By Mouth, Daily, 0 Refills, 04/03/05 18:35:53 Start Date: 04/03/05 Status: Ordered isosorbide dinitrate 30 mg oral tablet 1 tablet = 30 mg, By Mouth, Daily at supper, # 180 tablet, 0 Refills, Maintenance, 07/19/19 7:29:00EDT, Tablet Start Date: 07/19/19 Status: Ordered isosorbide mononitrate 60 mg oral tablet, extended release 60 mg, 1, tablet, By Mouth, Daily in AM, # 30 tablet, Refills 0, Maintenance, 03/27/18 12:54:39 EST Start Date: 03/27/18 Status: Ordered meloxicam [...] 5:51:50, Tablet Start Date: 10/04/13 Status: Ordered propranolol 10 mg oral tablet 10 mg, 1, tablet, By Mouth, 2 times a day, # 60 tablet, Refills 0, Maintenance, 06/30/19 14:59:00 EST Start Date: 06/30/19 Status: Ordered Sinemet 25 mg-100 mg oral tablet 1 tablet, By Mouth, 3 times a day, # 90 tablet, 0 Refills, Maintenance, 03/27/18 12:35:29 EST, Tablet Start Date: 03/27/18 Status: Ordered Problem List Diagnosis Diagnosis Type Effective Dates Health Status inical Service Informant Right knee pain Discharge Diagnosis 09/11/23 Effusion of right knee Discharge Diagnosis 09/11/23 Vital Signs Most recent to oldest [Reference Range]: 1 Height 186 cm (09/11/23 12:49 PM) Oxygen Saturation [94-100 %] 97 % (09/11/23 12:49 PM) Pulse Rate [55-90 bpm] 67 bpm (09/11/23 12:49 PM) Blood Pressure [90-138/55-84 mm Hg] 163/ 79mm Hg *H* (09/11/23 12:49 PM) Respiratory Rate [16-30 br/min] 16 br/mi n (09/11/23 12:49 PM) Temperature [96.8-100.4 DegF] 97.1 DegF (09/11/23 12:49 PM) Mode of Delivery (Oxygen) Room air (09/11/23 12:49 PM) Blood pressure sites Arm, right (09/11/23 12:49 PM) Temperature Route Temporal (09/11/23 12:49 PM) Social History Social History Type Response Smoking Status Former smoker entered on: 02/06/17 Sex Note * Don HUTTON, Louisa: PERFORM, SIGN, VERIFY Event Display: Patient Education/Instruction Authored Date: [id number] [facility] *[facility] Clinical Summary Name ERNIE GASTON Age 68 Years 1955 PCP Po Joey MEJIA PCP Visit Date 09/11/2023 11:17:00 Patient Instructions Ice the affected knee at 15-minute intervals. Continue to use crutches and limit weightbearing until??swelling is improved. Tylenol as directed as needed for pain. Follow-up with orthopedics in??5 to 7 days if the swelling has not significantly improved.?? Follow-up immediately in urgent care or the emergency department if??you develop fever, redness or warmth??of the right knee,??or develop??increased swelling. Additional Instructions: Scheduled Appointments?? Future Appointments ?No Future Appointments Scheduled Follow-Up Instructions ?? Diagnosis Effusion, right knee; Pain in right knee Medications: Please continue your medications until treatment is completed or stopped by your provider. Discuss any questions related to medications with your provider. Medications to Continue with No Changes These medications were not printed or sent to your pharmacy Aspirin (aspirin 81 mg oral tablet) 1 tab(s) Oral Daily. Next Dose: Atorvastatin (atorvastatin 40 mg oral tablet) 1 tab(s) Oral Daily at Bedtime. Refills: 0. Next Dose: Bumetanide (bumetanide 2 mg oral tablet) 1 tab(s) Oral Daily. Next Dose: Carbidopa-Levodopa (Sinemet 25 mg-100 mg oral tablet) 1 tab(s) Oral 3 times a day. Next Dose: Isosorbide Dinitrate (isosorbide dinitrate 30 mg oral tablet) 1 tab(s) Oral Daily at supper. Next Dose: Isosorbide Mononitrate (isosorbide mononitrate 60 mg oral tablet, extended release) 1 tab(s) Oral Daily in the morning. Next Dose: Meloxicam (meloxicam 7.5 mg oral tablet) 1 tab(s) Oral Daily. Next Dose: Metoprolol (metoprolol 50 mg oral tablet) 1 tab(s) Oral twice a day. Next Dose: Propranolol (propranolol 10 mg oral tablet) 1 tab(s) Oral twice a day. Next Dose: Warfarin (Coumadin Tablet) 7.5 Milligram Oral Daily. Next Dose: Allergy Info:?? NKA Medications Given This Visit Future Orders ?No future orders Future Orders ?Lyme Disease Ab Screen? Order Date:09/11/23?- Complete within? Vital Signs Height 186 cm Weight BMI Blood Pressure 163 mm Hg/79 mm Hg Temperature 97.1 DegF Pulse Rate 67 bpm Respiratory Rate 16 br/min 02 Sat Mode of Delivery 97 %/Room air You can now view a summary of your hospital visit from the comfort of your home through a free online portal called [employer]. [employer] is a website that allows you to securely view your medical information including discharge summary, medications and follow-up visits. ??You can alsosend a secure electronic message to your doctor???s office to request appointments, renew medications or just ask a question. You can enroll at [email or web address] or register during your next office visit. Disclaimer:?? The information provided is of a general nature and is intended to be used in conjunction with the recommendations and advice of your health care practitioner. ??Every effort has been made to ensure that the information provided is accurate and complete at the time it is provided to you however, as your needs change, or, as new ??information becomes available, different or additional instructions may be required. If you have questions, please consult with your primary care provider or pharmacist, as appropriate. ??This information is not intended to serve as substitution for assessment and evaluation by a qualified health care provider. If you do not have a primary care provider, you may find a [facility] provider by calling [facility] studentSN Link at [phone]. [facility], in keeping with [facility] guidance, no longer requires face masks for staff, patientsor visitors in most situations. Similar to time spent indoors at other locations, there is the chance that you were exposed to respiratory viruses during your time with us (such as flu or COVID-19).? If you develop symptoms concerning for a viral respiratory infection, please seek testing (and treatment if indicated) from your medical provider or home test kit. For information about the plan of care including goals and instructions for your diagnosis, please see the patient education orders section of this document. Patient Education Materials?? The content of this educational material or handout may have been modified, supplemented, or adapted from its original content and format to support your individualized medical care. Water on the Knee Water on the knee is also known as knee effusion. The knee joint normally has less than 1 ounce of fluid. Injury or inflammation of the knee joint causes extra fluid to collect there. When this happens, the knee joint looks swollen and is usually painful. It may be hard to fully bend the knee. The most common cause of water on the knee is osteoarthritis due to wear and tear on the joint cartilage. Other causes include injury to the cartilage, inflammatory arthritis such as gout or rheumatoid arthritis, and infection of the joint. You may need a needle aspiration, if the cause of your water on the knee is not certain. This procedure removes a sample of joint fluid from the knee for testing. This is done with a local anesthetic. Removing excess fluid may also relieve swelling and pain. Home care ??? Limit your activities. Stay off the injured leg as much as possible until pain improves. ??? Keep your leg elevated to reduce pain and swelling. When sleeping, place a pillow under the injured leg. When sitting, support the injured leg so it is level with your waist. This is very important during the first 48 hours. ??? Apply an ice pack over the injured area for 15 to 20 minutes every 3 to 6 hours. You should do this for the first 24 to 48 hours. You can make an ice pack by filling a plastic bag that seals at the top with ice cubes and then wrapping it with a thin towel. Continue to use ice packs for relief of pain and swelling as needed. As the ice melts, be careful to avoid getting your wrap, splint, or cast wet. After 48 hours, apply heat(warm shower or warm bath) for 15 to 20 minutes several times a day, or alternate ice and heat. If you have to wear a wrbb-ktx-ijju knee brace, you can open it to apply the ice pack, or heat, directly to the knee. Never put ice directly on the skin. Always wrap theice in a towel or other type of cloth. ??? You may use??lkmn-nzv-srhgzme pain medicine to control pain, unless another pain medicine was prescribed. If you have chronic liver or kidney disease or have ever had a stomach ulcer or GI bleeding, talk with your healthcare provider before??using these medicines. ??? If crutches or a walker have been recommended, do not put weight on the injured leg until you can do so without pain. Check with your healthcare provider before returning to sports or full work duties. ??? If you have a dcgu-hxk-vwke knee brace, you can remove it to bathe and sleep, unless told otherwise. Follow-up care Follow up with your healthcare provider as advised. If you are overweight, talk to your healthcare provider about a weight loss program. The excess weight puts extra strain on your knees. When to seek medical advice Call your healthcare provider right away if any of these occur: ??? Increasing pain, redness, or swelling of the knee ??? Fever of 100.4??F (38??C) or above lasting for 24 to 48 hours ?? [id number] [employer] [place] [address]. All rights reserved. This information is not intended as a substitute for professional medical care. Always follow your healthcare professional's instructions. Patient Care team information Care Team Personnel Name: Aviva Zuñiga RN Position: [facility] RN Member Role: Primary Care Nurse Name: Hawa Huizar RN Position: S RN Member Role: Primary Care Nurse Name: Joey Shetty MD Position: Reference Physician Member Role: PCP Address: Address: [address] [place] [address]- Care Team Related Persons Name: ADRIANNE GASTON Address: [address] [address]
--- OUTSIDE RECORDS SUMMARY | 2023-12-30 07:43 | XMS_ITS | Continuity of Care Document ---
Author Organization [facility] Address [address] [place] [address]- Care Team Providers Care Equity Trader Name Role Phone Po Joey MEJIA Primary Care Physician Encounter [facility] [place] Date(s): 09/11/23 - 10/11/23 [facility] [address] [place], [place] [address] Attending Physician: Maulik Olvera Admitting Physician: Admtr, Maulik Referring Physician: Admtr, ArCalli Allergies, Adverse Reactions, Alerts No Known Allergies [...] Start Date: 03/27/18 Status: Ordered Problem List Condition Confirmation Course Effective Dates Status Health St atus Informant Obese class I Confirmed Active Social History Social History Type Response Smoking Status Former smoker entered on: 02/06/17 Sex Patient Care team information Care Team Personnel Name: Aviva Zuñiga RN Position: [facility] RN Member Role: Primary Care Nurse Name: Hawa Huizar RN Position: S RN Member Role: Primary Care Nurse Name: Joey Shetty MD Position: Reference Physician Member Role: PCP Address: Address: [address] [place] [address]- Care Team Related Persons Name: ADRIANNE GASTON Address: home [address] [place] [address]
--- OUTSIDE RECORDS SUMMARY | 2023-12-30 07:43 | XMS_ITS | Continuity of Care Document ---
Author Organization [facility] ter Address [address] [place] [address]- Care Team Providers Care Box Stapler Name Role Phone Joey Shetty MD Primary Care Physician [place] [facility] [place]/19/19 - 07/19/[address] [address]- [facility] Discharge Disposition: A-D/C Home Attending Physician: David White MD Admitting Physician: David White MD Referring Physician: David White MD Allergies, Adverse Reactions, Alerts Substance Reaction [...] Most recent to oldest [Reference Range]: 1 2 Height 186 cm (07/19/19 7:38 AM) 186 cm (07/19/19 7:34 AM) Weight 102.2 kg (07/19/19 7:38 AM) 102.2 kg (07/19/19 7:34 AM) Oxygen Saturation [94-100 %] 95 % (07/19/19 7:06 AM) Pulse Rate [55-90 bpm] 61 bpm (07/19/19 7:06 AM) Blood Pressure [90-138/55-84 mm Hg] 132/ 70mm Hg (07/19/19 7:06 AM) Respiratory Rate [16-30 br/min] 18 br/mi n (07/19/19 7:06 AM) Temperature [96.8-100.4 DegF] 98.7 DegF (07/19/19 7:06 AM) Mode of Delivery (Oxygen) Room air (07/19/19 7:06 AM) Blood pressure sites Arm, left (07/19/19 7:06 AM) Temperature Route Oral (07/19/19 7:06 AM) Dry Weight 102.2 kg (07/19/19 7:34 AM) Social History Social History Type Response Smoking Status Former smoker entered on: 02/06/17 Sex
--- OUTSIDE RECORDS SUMMARY | 2023-12-30 07:43 | XMS_ITS | Continuity of Care Document ---
Author Organization [facility] Address [address] [place] [address] [place] [address]- Care Team Providers Care Architecture Analyst Name Role Phone Po Joey MEJIA Primary Care Physician En[place] [facility] Date(s): 10/07/23 - 10/14/23 [facility] Cardiac [facility] [address] [place] [address] Drive [address] [place], [place] [address] Attending Physician: Kulwinder Prado MD Referring Physician: David White MD Allergies, Adverse Reactions, Alerts No Known [...] atus Informant Obese class I Confirmed Active Vital Signs Most recent to oldest [Reference Range]: 1 Height 186 cm (10/07/23 2:47 PM) Weight 106.8 kg (10/07/23 2:47 PM) Oxygen Saturation [94-100 %] 95 % (10/07/23 2:47 PM) Pulse Rate [55-90 bpm] 82 bpm (10/07/23 2:47 PM) Body Mass Index [18.5-24.99 kg/m2] 30.87 kg/m2 *>HHI* (10/07/23 2:47 PM) Blood Pressure [90-138/55-84 mm Hg] 120/ 60mm Hg (10/07/23 2:47 PM) Respiratory Rate [16-30 br/min] 18 br/mi n (10/07/23 2:47 PM) Temperature [96.8-100.4 DegF] 98.7 DegF (10/07/23 2:47 PM) Mode of Delivery (Oxygen) Room air (10/07/23 2:47 PM) Blood pressure sites Arm, left (10/07/23 2:47 PM) Temperature Route Oral (10/07/23 2:47 PM) Weight Obtained Via Patient/family state d (10/07/23 2:47 PM) Social History Social History Type Response Smoking Status Former smoker entered on: 02/06/17 Sex Note * Event Display: [facility]iac [facility] Office Note Authored Date: [id number] OFFICE NOTE DATE: 10/07/2023 REASON FOR VISIT: 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 Since we saw him a year ago, he did require hospitalization in May for what sounds like a pneumonia/COPD exacerbation. He has recovered from this and is doing well. He denies any chest pain or back pain. He did have a follow-up CT scan just last month that showed his distal ascending and proximal arch again measuring about 5.4 cm in maximum diameter, which is unchanged from last year and, dating all the way back to 2019, I compared these films as well. PAST MEDICAL, SURGICAL, SOCIAL HISTORIES: Reviewed and unchanged. MEDICATIONS: Baby aspirin, atorvastatin, Bumex, Sinemet, isosorbide, metoprolol, propranolol and Coumadin. ALLERGIES: No known drug allergies. REVIEW OF SYSTEMS: As per HPI; otherwise, remainder are negative. PHYSICAL EXAMINATION: GENERAL APPEARANCE: Well appearing male, sitting in the chair, in no acute distress. VITAL SIGNS: Temperature is 98.7, heart rate 82 beats per minute, blood pressure 120/60 mmHg, respirations 18, oxygen saturation 95%. CARDIAC: Regular rate and rhythm. He does have audible mechanical heart valve sounds. No murmurs. LUNGS: Clear to auscultation. Incision is well healed. Sternum is stable. EXTREMITIES: No clubbing, cyanosis or edema. NEUROLOGIC: Grossly nonfocal. IMAGING: CT scan is as described; I did personally review these images. 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 This would be a high risk operation, given the degree of calcium, redo nature and the arch aspect. Given that has been stable over several years at least, I think the better choice is to continue with surveillance. I have emphasized to him to make sure his blood pressure is well controlled and avoid very heavy lifting or strenuous activities. He understands. We will repeat a scan in 1 year and see him then. Thank you for this referral. Dictated by: Kulwinder Prado MD Signing Clinician: Kulwinder Prado MD Dictated: 10/07/2023 03:08:07 Transcribed: 10:45:32 AM Transcribed by: ISV/SEE DocID: [id number] PRELIMINARY REPORT UNLESS MANUALLY/ELECTRONICALLY SIGNED cc: Joey Shetty M.D. [facility]. In Internal Medicine [address] [place] [address]. [address] [place], [address] David White M.D. [facility] [address], [address] [place], [address] Patient Care team information Care Team Personnel Name: Aviva Zuñiga RN Position: S RN Member Role: Primary Care Nurse Name: Hawa Huizar RN Position: S RN Member Role: Primary Care Nurse Name: Joey Shetty MD Position: Reference Physician Member Role: PCP Address: Address: [address] [place] [address]- Care Team Related Persons Name: ADRIANNE GASTON Address: home [address] [place] [address]
--- OUTSIDE RECORDS SUMMARY | 2023-12-30 07:43 | XMS_ITS | Continuity of Care Document ---
Author Organization [facility] Address [address] [place] [address]- Care Team Providers Care Alterations Supervisor Name Role Phone Po Joey MEJIA Primary Care Physician Encounter [facility] [place] Date(s): 08/20/22 - 09/19/22 [facility] Cardiac Surgery [address] [place] [id number] Attending Physician: Maulik [...] Status Former smoker entered on: 02/06/17 Sex Cardiology * Event Display: Non BH Cardiovascular Results Authored Date: Note * Event Display: Cardiology Office Note, Non-BH Authored Date: * Event Display: Cardiology Office Note, Non-BH Authored Date: [id number] Radiology * Event Display: CT Scan Chest, Non- BH Authored Date: * Event Display: CT Scan Chest, Non- BH Authored Date: * Event Display: CT Scan Chest, Non- BH Authored Date: Patient Care team information Care Team Personnel Name: Aviva Zuñiga RN Position: S RN Supv Member Role: Primary Care Nurse Name: Hawa Huizar RN Position: S RN Member Role: Primary Care Nurse Name: Joey Shetty MD Position: Reference Physician Member Role: PCP Address: Address: [address] [place] [address]- Care Team Related Persons Name: ADRIANNE GASTON Address: [address] [address]
--- OUTSIDE RECORDS SUMMARY | 2023-12-30 07:43 | XMS_ITS | Continuity of Care Document ---
Author Organization [facility] Address [address] [place] [address]- Care Team Providers Care Client Support Representative Name Role Phone Po Joey MEJIA Primary Care Physician [phone] Encounter [facility] [place] Date(s): 08/21/21 - 08/28/21 [facility] [address] [place] [address] [address] Attending Physician: Kulwinder Prado MD Referring Physician: [...] oldest [Reference Range]: 1 Height 186 cm (08/21/21 11:49 AM) Weight 102.2 kg (08/21/21 11:49 AM) Oxygen Saturation [94-100 %] 97 % (08/21/21 11:49 AM) Pulse Rate [55-90 bpm] 61 bpm (08/21/21 11:49 AM) Body Mass Index [18.5-24.99] 29.54 *H* (08/21/21 11:49 AM) Blood Pressure [90-138/55-84 mm Hg] 128/ 72mm Hg (08/21/21 11:49 AM) Respiratory Rate [16-30 br/min] 18 br/mi n (08/21/21 11:49 AM) Mode of Delivery (Oxygen) Room air (08/21/21 11:49 AM) Blood pressure sites Arm, left (08/21/21 11:49 AM) Weight Obtained Via Patient/family state d (08/21/21 11:49 AM) Social History Social History Type Response Smoking Status Former smoker entered on: 02/06/17 Sex
--- OUTSIDE RECORDS SUMMARY | 2023-12-30 07:43 | XMS_ITS | Continuity of Care Document ---
Author Organization [facility] ter Address [address] [place] [address]- Care Team Providers Care Astronomy Instructor Name Role Phone Po Joey MEJIA Primary Care Physician [place] [facility] [place] Date(s): 04/10/21 - 04/10/[address] [address] Attending Physician: Twan Rudolph Allergies, Adverse Reactions, Alerts Substance Reaction Severity [...]
--- OUTSIDE RECORDS SUMMARY | 2023-12-30 07:43 | XMS_ITS | Continuity of Care Document ---
Author Organization [facility] Address [address] [place] [address]- Care Team Providers Care Furnace Operator And Tender Name Role Phone Po Joey MEJIA Primary Care Physician Encounter [facility] Date(s): 07/21/23 - 08/20/23 [facility] Cardiac Surgery [address] [place] [address] Drive [address] [place], [place] [address] Allergies, Adverse Reactions, Alerts [...] Care Nurse Name: Hawa Huizar RN Position: [facility] RN Member Role: Primary Care Nurse Name: Joey Shetty MD Position: Reference Physician Member Role: PCP Address: Address: [address] [place] [address]- Care Team Related Persons Name: PURVI GASTONN Address: home [address] [place] [address]
--- OUTSIDE RECORDS SUMMARY | 2023-12-30 07:43 | XMS_ITS | Continuity of Care Document ---
Author Organization [facility] ter Address [address] [place] [address]- Care Team Providers Care Tapping Machine Operator Name Role Phone Joey Shetty MD Primary Care Physician [phone] Encounter [facility] [place] Date(s): 08/11/19 - 09/10/[address] [address]- [facility] Attending Physician: David White MD Admitting Physician: [...]
--- OUTSIDE RECORDS SUMMARY | 2023-12-30 07:43 | XMS_ITS | Continuity of Care Document ---
Author Organization [facility] Reid manfred Address [address] [place] [address]- Care Team Providers Care Allergist/Immunologist Name Role Phone Po Joey MEJIA Primary Care Physician [place] [facility] [place](s[place] 10/07/23 - 11/06/23 [facility] Cardiac [facility] [address] [place] [address] Drive [address] [place], [place] [address] Attending Physician: Maulik Olvera Admitting Physician: AdmtrMaulik Referring Physician: Admtr, ArCalli Allergies, Adverse Reactions, [...] on: 02/06/17 Sex Cardiology * Event Display: Cardiology Office Note, Non-BH Authored Date: * Event Display: Non BH Cardiovascular Results Authored Date: * Event Display: Cardiology Office Note, Non-BH Authored Date: Radiology * Event Display: CT Scan Chest, Non- BH Authored Date: * Event Display: CT Scan Chest, Non- BH Authored Date: * Event Display: CT Scan Chest, Non- BH Authored Date: Patient Care team information Care Team Personnel Name: Aviva Zuñiga RN Position: [facility] RN Member Role: Primary Care Nurse Name: Hawa Huizar RN Position: [facility] RN Member Role: Primary Care Nurse Name: Joey Shetty MD Position: Reference Physician Member Role: PCP Address: Address: [address] [place] [address]- Care Team Related Persons Name: ADRIANNE GASTON Address: [address] [address]
--- OUTSIDE RECORDS SUMMARY | 2023-12-30 07:43 | XMS_ITS ---
Author Organization [facility] Address [address] [place] [address] Care Team Providers Care Grain Merchandising Manager Name Role Phone DiogenesPeytonnella Primary Care Provider Lilian Augustin Unavailable [phone] ALLERGIES No Known Allergies REASON FOR VISIT Ingrown Nail MEDICATIONS Medication SIG (Take, Route, Frequency, Duration) Notes Start Date End Date Status Rosuvastatin Calcium 20 MG (Prior Auth#:[id number]) Oral for 90 Not-Taking Albuterol Sulfate HFA 108 (90 Base) MCG/ACT (Prior Auth#:[id number]) Inhalation for 30 Not-Taking Isosorbide Mononitrate ER 30 MG (Prior Auth#:[id number]) Oral for 90 Not-Taking Magnesium Oxide 400 (241.3 Mg) MG (Prior Auth#:[id number]) Oral for 90 Not-Taking Humira Active Spiriva Respimat 2.5 MCG/ACT (Prior Auth#:[id number]) Inhalation for 30 Not-Taking Advair Diskus 250-50 MCG/DOSE (Prior Auth#:[id number]) Inhalation for 90 Not-Taking Otezla 30 MG (Prior Auth#:[id number]) Oral for 90 Not-Taking dilTIAZem HCl ER Beads 180 MG 1 capsule Orally Once a day for 30 day(s) Not-Taking Warfarin Sodium 7.5 MG (Prior Auth#:[id number]) Oral for 90 Active Nebulizer Active Metoprolol Tartrate 75 MG 1 tablet with food Orally Twice a day for 30 day(s) Active Meloxicam 7.5 MG (Prior Auth#:[id number]) Oral for 45 Active Medrol 4 MG as directed Orally 02/22/2021 Active Propranolol HCl 10 MG (Prior Auth#:[id number]) Oral for 90 Active Furosemide 20 MG as directed Orally O nce a day Active Carbidopa-Levodopa 25-100 MG (Prior Auth#:[id number]) Oral for 90 Active Atorvastatin Calcium 40 MG (Prior Auth#:[id number]) Oral for 90 Active Aspirin Low Dose 81 MG (Prior Auth#:[id number]) Oral for 90 Active SOCIAL HISTORY Tobacco Use: Social History Observation Description Date Details (start date - stop date) Former Smoker NA - NA Sex Assigned At : Social History Observation Description Sex Assigned At Unknown Tobacco Use/Smoking Question Answer Notes Are you a: former smoker Additional Findings: Tobacco Non-User Current no n-smoker Tobacco use other than smoking: Question Answer Notes Are you an other tobacco user? No VITAL SIGNS Height 6ft1in in 12/22/2023 Weight 230 lbs 12/22/2023 BMI 30.34 kg/m2 12/22/2023 Blood pressure systolic 120 mm Hg 12/22/19 24 Blood pressure diastolic 62 mm Hg 024 Encounters Encounter Location Date Provider Diagnosis [facility] [address] [place] [address] 12/22/2023 Lilian Lavell Ingrown nail L60.0 ASSESSMENTS Encounter Date Diagnosis Assessment Notes Treatment Notes Treatment Clinical Notes 12/22/2023 Ingrown nail (ICD-10 - L60.0) PLAN OF TREATMENT Next Appt Details Follow Up: prn, Reason: Provider Name:Lilian ferris, 01/21/2024 09:15:00 AM, [address] [place], [address], Procedure Notes * Category Sub-Category Detail Notes Nail Avulsion Procedure A fine sterile e levator was placed between the eponychium, nail fold, and nail plate to separate the structures. A sterile nail splitter, and/or sterile 316 blade, was then used to longitudinally section the nail along its entire length through the eponychium to the area under the nail fold. The offending portion of nail was from the nail bed with a rolling action and then removed with a hemostat. No underlying bone was identified. There was minimal bleeding as hemostasis was achieved through the temporary use of either a digital tourniquet or the aforementioned local with epinephrine. A bacitracin sterile dressing was applied. Local wound aftercare instructions were discussed and dispensed. The patient was informed of both conservative and future surgical procedures to prevent recurrence. Tylenol or Motrin was recommended for pain or discomfort (50860), Pt DEFERS matricectomy Anesthesia 3cc of 1 percent Lid ocaine Plain local anesthesic utilizing aseptic technique Location Bilateral nail borde r, SUZANNA Progress Notes * Examination Category Sub-Category Detail Notes Ingrown Nail INSPECTION: Reveals nail inc urvation, pain on palpation, groove hypertrophy Bilateral nail borders TA
--- OUTSIDE RECORDS SUMMARY | 2023-12-30 07:43 | XMS_ITS | Continuity of Care Document ---
Author Organization [facility] Reid manfred Address [address] [place] [address]- Care Team Providers Care Metal Weather Stripper Name Role Phone Po Joey MEJIA Primary Care Physician [phone] Encounter [facility] [place] Date(s): 06/20/22 - 07/20/22 [facility] Cardiac Surgery [address] [place] [address]- Allergies, Adverse Reactions, Alerts No Known Allergies [...] Physician Member Role: PCP Address: Address: [address] [place] [address]- Care Team Related Persons Name: ADRIANNE GATSON Address: [address] [address]
--- OUTSIDE RECORDS SUMMARY | 2023-12-30 07:43 | XMS_ITS | Continuity of Care Document ---
Author Organization [facility] Reid manfred Address [address] [place] [address]- Care Team Providers Care Medical Biller Name Role Phone Po Joey MEJIA Primary Care Physician [phone] [place] [facility] [place](s): 06/30/19 - 07/10/19 [facility] Cardiac [facility] [address] [place] [address] [facility] Attending Physician: Admtr, Maikel8 Admitting Physician: Admtr, Maikel8 Referring Physician: Admtr, Ar8 Allergies, Adverse Reactions, [...] Daily Start Date: 10/04/13 Status: Ordered isosorbide mononitrate 60 mg oral [...]
--- OUTSIDE RECORDS SUMMARY | 2023-12-30 07:43 | XMS_ITS | Continuity of Care Document ---
Author Organization [facility] Reid manfred Address [address] [place] [address]- Care Team Providers Care Chief Strategy Officer Name Role Phone Po Joey MEJIA Primary Care Physician Encounter [facility] [place] Date(s): 06/30/19 - 07/07/19 [facility] Cardiac Surgery [address] [place] [address]- [facility] Attending Physician: Kulwinder Prado MD Referring Physician: Cindy MEJIA, David Sutherland Allergies, Adverse Reactions, Alerts Substance Reaction Severity [...] oldest [Reference Range]: 1 Height 186 cm (06/30/19 2:52 PM) Weight 98 kg (06/30/19 2:52 PM) Pulse Rate [55-90 bpm] 73 bpm (06/30/19 2:52 PM) Body Mass Index [18.5-24.99] 28.33 *H* (06/30/19 2:52 PM) Blood Pressure [90-138/55-84 mm Hg] 110/ 70mm Hg (06/30/19 2:52 PM) Blood pressure sites Arm, right (06/30/19 2:52 PM) Weight Obtained Via Patient/family state d (06/30/19 2:52 PM) Social History Social History Type Response Smoking Status Former smoker entered on: 02/06/17 Sex
--- OUTSIDE RECORDS SUMMARY | 2023-12-30 07:43 | XMS_ITS | Continuity of Care Document ---
Author Organization [facility] Address [address] [place] [address]- Care Team Providers Care Passenger Locomotive Engineer Name Role Phone Po Joey MEJIA Primary Care Physician [place] [facility] [place] - 06/18/[address] [address] Attending Physician: Donald Menendez MD Admitting Physician: Donald Menendez MD Referring Physician: Donald Menendez MD Allergies, Adverse Reactions, Alerts No Known [...] Team Personnel Name: Aviva Zuñiga RN Position: [facility] Supv Member Role: Primary Care Nurse Name: Hawa Huizar RN Position: [facility] RN Member Role: Primary Care Nurse Name: Joey Shetty MD Position: Reference Physician Member Role: PCP Address: Address: [address] [place] [address]- Care Team Related Persons Name: ADRIANNE GASTON Address: home [address] [place] [address]
--- OUTSIDE RECORDS SUMMARY | 2023-12-30 07:43 | XMS_ITS | Continuity of Care Document ---
Author Organization [facility] Reid manfred Address [address] [place] [address]- Care Team Providers Care Microarray Operations Vice President Name Role Phone Po Joey MEJIA Primary Care Physician [phone] Encounter [facility] [place] Date(s): 08/20/22 - 08/27/22 [facility] Cardiac Surgery [address] [place] [address] Attending Physician: Kulwinder Prado MD Referring Physician: [...] oldest [Reference Range]: 1 Height 186 cm (08/20/22 2:19 PM) Weight 102.2 kg (08/20/22 2:19 PM) Oxygen Saturation [94-100 %] 97 % (08/20/22 2:19 PM) Pulse Rate [55-90 bpm] 69 bpm (08/20/22 2:19 PM) Body Mass Index [18.5-24.99 kg/m2] 29.54 kg/m2 *H* (08/20/22 2:19 PM) Blood Pressure [90-138/55-84 mm Hg] 124/ 70mm Hg (08/20/22 2:19 PM) Respiratory Rate [16-30 br/min] 18 br/mi n (08/20/22 2:19 PM) Mode of Delivery (Oxygen) Room air (08/20/22 2:19 PM) Blood pressure sites Arm, right (08/20/22 2:19 PM) Weight Obtained Via Patient/family state d (08/20/22 2:19 PM) Social History Social History Type Response Smoking Status Former smoker entered on: 02/06/17 Sex Note * Event Display: [facility] Cardiac Surgery Office Note Authored Date: [id number] OFFICE NOTE DATE: 08/20/2022 REASON FOR VISIT: Follow-up of ascending aortic arch aneurysm. HISTORY OF PRESENT ILLNESS: The patient is a 67-year-old male who underwent an ascending aortic replacement and aortic valve replacement with a mechanical valve in 1996. He has been followed with annual CT scans, watching a distal ascending and proximal arch aneurysm. Since his last visit 1 year ago, he denies any chest pain or back pain. He does have chronic shortness of breath, which is unchanged and his recent CT scan again shows the dilated distal ascending and proximal arch measuring in the 5.3-5.4 cm range. I did compare it side by side with last year's study as well as the 2019 and 2018 studies and it does not appear significantly changed. The measurements as quoted by the radiologist are larger than this, but I think they were measured in an incorrect access. PHYSICAL EXAMINATION: GENERAL: Well-appearing male, sitting in a chair in no distress. VITAL SIGNS: Heart rate is 69 beats per minute, blood pressure 124/70 mmHg, respirations 18, oxygensaturation 97%. CARDIAC: Regular rate and rhythm. Audible mechanical valve sounds. No murmurs. LUNGS: Clear to auscultation. Incision is well healed. Sternum is stable. EXTREMITIES: No clubbing, cyanosis or edema. NEUROLOGIC: Grossly nonfocal. IMAGING: CT scan is as described. I did personally review these images. 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 This is a heavily calcified aorta. Given the redo nature and the size, I do not think surgery would be in his best interest at this point; I would continue with surveillance. I have emphasized to him the importance of strict blood pressure control and to avoid very heavy lifting or strenuous activities. He understands and we will repeat a scan in a year and see him back. Thank you for this referral. Dictated by: Kulwinder Prado MD Signing Clinician: Kulwinder Prado MD Dictated: 08/20/2022 03:00:59 Transcribed: 10:23:05 AM Transcribed by: KOBE/AQUILINO DocID: [id number] PRELIMINARY REPORT UNLESS MANUALLY/ELECTRONICALLY SIGNED cc: David White M.D. [facility] [address] [place] [address], [address] [place], [address] Joey Shetty M.D. [facility]. In Internal Medicine [address] [place] [address] [address] [place], [address] Patient Care team information Care Team Personnel Name: Aviva Zuñiga RN Position: [facility] Supv Member Role: Primary Care Nurse Name: Hawa Huizar RN Position: [facility] RN Member Role: Primary Care Nurse Name: Joey Shetty MD Position: Reference Physician Member Role: PCP Address: Address: [address] [place] [address]- Care Team Related Persons Name: ADRIANNE GASTON Address: home [address] [place] [address]
--- OUTSIDE RECORDS SUMMARY | 2023-12-30 07:43 | XMS_ITS | Continuity of Care Document ---
Author Organization [facility] Reid manfred Address [address] [place] [address]- Care Team Providers Care Sheet Metal Layout Worker Name Role Phone Joey Shetty MD Primary Care Physician Encounter [id number] Date(s): 06/15/20 - 06/22/20 [facility] Cardiac Surgery [address] [facility] Room [address] [place] [address] Attending Physician: Kulwinder Prado MD Referring [...]
--- OUTSIDE RECORDS SUMMARY | 2023-12-30 07:43 | XMS_ITS | Continuity of Care Document ---
Author Organization [facility] ter Address [address] [place] [address]- Care Team Providers Care High School Guidance Counselor Name Role Phone Joey Shetty MD Primary Care Physician Encounter [facility] [place] Date(s): 07/18/19 - 08/18/[address] [address] [facility] Attending Physician: David White MD Admitting Physician: [...]
--- OUTSIDE RECORDS SUMMARY | 2023-12-30 07:44 | XMS_ITS | Patient Health Record ---
Author Organization [facility] Address [address] [facility] [place] [address] Care Team Providers Care Vb Net Developer Name Role Phone Joey Shetty Primary Care Provider Lilian Augustin Unavailable [phone] ALLERGIES No Known Allergies REASON FOR REFERRAL No Information MEDICATIONS Medication SIG (Take, Route, Frequency, Duration) Notes Start Date End Date Status Nebulizer Active Metoprolol Tartrate 75 MG 1 tablet with food Orally Twice a day for 30 day(s) Active Rosuvastatin Calcium 20 MG (Prior Auth#:[id number]) Oral for 90 Not-Taking Meloxicam 7.5 MG (Prior Auth#:[id number]) Oral for 45 Active Albuterol Sulfate HFA 108 (90 Base) MCG/ACT (Prior Auth#:[id number]) Inhalation for 30 Not-Taking Medrol 4 MG as directed Orally 02/22/2021 Active Isosorbide Mononitrate ER 30 MG (Prior Auth#:[id number]) Oral for 90 Not-Taking Furosemide 20 MG as directed Orally O nce a day Active Magnesium Oxide 400 (241.3 Mg) MG (Prior Auth#:[id number]) Oral for 90 Not-Taking Carbidopa-Levodopa 25-100 MG (Prior Auth#:[id number]) Oral for 90 Active Spiriva Respimat 2.5 MCG/ACT (Prior Auth#:[id number]) Inhalation for 30 Not-Taking Atorvastatin Calcium 40 MG (Prior Auth#:[id number]) Oral for 90 Active Advair Diskus 250-50 MCG/DOSE (Prior Auth#:[id number]) Inhalation for 90 Not-Taking Aspirin Low Dose 81 MG (Prior Auth#:[id number]) Oral for 90 Active Otezla 30 MG (Prior Auth#:[id number]) Oral for 90 Not-Taking Humira Active dilTIAZem HCl ER Beads 180 MG 1 capsule Orally Once a day for 30 day(s) Not-Taking Warfarin Sodium 7.5 MG (Prior Auth#:[id number]) Oral for 90 Active Propranolol HCl 10 MG (Prior Auth#:[id number]) Oral for 90 Active IMMUNIZATIONS Vaccine Route Administration Date Status Comme nts COVID-19 Moderna Vaccine Unknown 04/13/2021 Administered 1st 06/13/2020 2nd 07/10/2020 SOCIAL HISTORY Tobacco Use: Social History Observation Description Date Details (start date - stop date) Former Smoker NA - NA Sex Assigned At : Social History Observation Description Sex Assigned At Unknown Tobacco Use/Smoking Question Answer Notes Are you a: former smoker Additional Findings: Tobacco Non-User Current no n-smoker Alcohol Screen Question Answer Notes Did you have a drink contain ing alcohol in the past year? Yes How often did you have a dri nk containing alcohol in the past year? 2 to 3 times a week (3 points) Points 3 Interpretation Negative Tobacco use other than smoking: Question Answer Notes Are you an other tobacco user? No PROBLEMS Problem Type ICD Code Onset Dates Problem Status W/U Status Risk SNOMED Code Notes Problem Psoriatic arthritis (L40.50) Active confirmed 464079003 Possible Problem Osteoarthritis of right ankle and foot (M19.071) Active confirmed 365876873715475 Problem Osteoarthritis of left ankle and foot (M19.072) Active confirmed [id number] Problem Gouty arthritis of left foot (M10.9) Active confirmed 1649358574415667 VITAL SIGNS Blood pressure diastolic 62 mm Hg 12/22/2023 Height 6ft1in in 12/22/2023 Blood pressure systolic 120 mm Hg 12/22/2023 Weight 230 lbs 12/22/2023 BMI 30.34 kg/m2 12/22/2023 Encounters Encounter Location Date Provider Diagnosis [facility] [address] [place] [address] 02/06/2023 Lilian Monte Tinea unguium B35.1 ; Pain in right toe(s) M79.674 and Pain in left toe(s) M79.[address] [address] 09/02/2023 Lilian Moralesa Tinea unguium B35.1 ; Pain in right toe(s) M79.674 and Pain in left toe(s) M79.[address] [address] 11/06/2023 Lilian Perica [address] [address] 11/11/2023 Lilian Carmena Tinea unguium B35.1 ; Pain in right toe(s) M79.674 and Pain in left toe(s) M79.[address] [address] 12/22/2023 Lilian Carmena Ingrown nail L60.0 ASSESSMENTS Encounter Date Diagnosis Assessment Notes Treatment Notes Treatment Clinical Notes 02/06/2023 Tinea unguium (ICD-10 - B35.1) 02/06/2023 Pain in right toe(s) (ICD-10 - M79.674) 09/02/2023 Tinea unguium (ICD-10 - B35.1) 11/11/2023 Tinea unguium (ICD-10 - B35.1) 12/22/2023 Ingrown nail (ICD-10 - L60.0) 11/11/2023 Pain in right toe(s) (ICD-10 - M79.674) 09/02/2023 Pain in right toe(s) (ICD-10 - M79.674) 02/06/2023 Pain in left toe(s) (ICD-10 - M79.675) 09/02/2023 Pain in left toe(s) (ICD-10 - M79.675) 11/11/2023 Pain in left toe(s) (ICD-10 - M79.675) PLAN OF TREATMENT Pending Test Test Name Order Date *Uric Acid, Serum 02/22/2021 X ray : Foot, right 3V 10/03/2020 Next Appt Details Provider Name:Lilian ferris, 01/21/2024 09:15:00 AM, [address], [place], [address], Insurance Providers Payer Name Payer Address Payer Phone Subscriber Number Group Number Insured Name Patient Relationship to Insured Coverage Start Date Coverage End Date [employer] Medicare Adv-[id number] [address] [address] [place] [address] [phone] [id number] Eddie Styles Self - patient is the insured MEDICAL (GENERAL) HISTORY Medical History History ICD Code Anxiety Heart disease Lung disease Psoriasis/eczema Measles Chicken pox Mumps Vascular grafts Joint implants/screws Replacement Heart Valves Surgical History Surgery Date(Month/Year) aortic valve 08/1996 colonoscopy 05/31/21 Hospitalization History Reason Date(Month/Year) [facility]- Having trouble breathing and retaining fluids - atypical pneumonia 06/03
--- OUTSIDE RECORDS SUMMARY | 2023-12-30 07:44 | XMS_ITS ---
Author Organization [facility] Address [address] [facility] [place] [address] Care Team Providers Care Player Development Manager Name Role Phone Diogenes Candisjose Primary Care Provider Lilian Augustin Unavailable [phone] ALLERGIES No Known Allergies REASON FOR VISIT Pcp- 09/01, Painful nail(s) aggrevated by shoes causing difficulty standing/walking MEDICATIONS Medication SIG (Take, Route, Frequency, Duration) Notes Start Date End Date Status Magnesium Oxide 400 (241.3 Mg) MG (Prior Auth#:[id number]) Oral for 90 Not-Taking Isosorbide Mononitrate ER 30 MG (Prior Auth#:[id number]) Oral for 90 Not-Taking Spiriva Respimat 2.5 MCG/ACT (Prior Auth#:[id number]) Inhalation for 30 Not-Taking Rosuvastatin Calcium 20 MG (Prior Auth#:[id number]) Oral for 90 Not-Taking Albuterol Sulfate HFA 108 (90 Base) MCG/ACT (Prior Auth#:[id number]) Inhalation for 30 Not-Taking Advair Diskus 250-50 MCG/DOSE (Prior Auth#:[id number]) Inhalation for 90 Not-Taking dilTIAZem HCl ER Beads 180 MG 1 capsule Orally Once a day for 30 day(s) Not-Taking Otezla 30 MG (Prior Auth#:[id number]) Oral for 90 Not-Taking Propranolol HCl 10 MG (Prior Auth#:[id number]) Oral for 90 Active Warfarin Sodium 7.5 MG (Prior Auth#:[id number]) Oral for 90 Active Meloxicam 7.5 MG (Prior Auth#:[id number]) Oral for 45 Active Furosemide 20 MG as directed Orally O nce a day Active Medrol 4 MG as directed Orally 02/22/2021 Active Metoprolol Tartrate 75 MG 1 tablet with food Orally Twice a day for 30 day(s) Active Nebulizer Active Atorvastatin Calcium 40 MG (Prior Auth#:[id number]) Oral for 90 Active Carbidopa-Levodopa 25-100 MG (Prior Auth#:[id number]) Oral for 90 Active Humira Active Aspirin Low Dose 81 MG (Prior Auth#:[id number]) Oral for 90 Active SOCIAL HISTORY Tobacco [...] other tobacco user? No VITAL SIGNS Height 6ft 1in in 11/11/2023 Weight 225 lbs 11/11/2023 BMI 29.68 kg/m2 11/11/2023 Encounters Encounter Location Date Provider Diagnosis [facility] [place] [address] [place] [address] 11/11/2023 Lilian Monte Tinea unguium B35.1 ; Pain in right toe(s) M79.674 and Pain in left toe(s) M79.675 ASSESSMENTS Encounter Date Diagnosis Assessment Notes Treatment Notes Treatment Clinical Notes 11/11/2023 Tinea unguium (ICD-10 - B35.1) 11/11/2023 Pain in right toe(s) (ICD-10 - M79.674) 11/11/2023 Pain in left toe(s) (ICD-10 - M79.675) PLAN OF TREATMENT Next Appt Details Follow Up: 2 Months, Reason: Provider Name:Lilian ferris, 01/21/2024 09:15:00 AM, [address], [place], [address], Procedure Notes * Category Sub-Category Detail Notes Debride Nail 6-10 Nail debridement Nail debridem ent performed extensively to reduce/remove overall nail length and girth, subungual debris, and necrotic tissue, by manual and electrical means with use of a nail nipper and/or dremel, to more viable healthy nail plate or bed tissue 6-10. Silver nitrate used for any petechial bleeding as necessary. Patient chooses, no pharmaceutical tx (51597) Progress Notes * Examination Category Sub-Category Detail Notes Nails NAILS are: Elongated, overg rown, dystrophic, lytic, greater than 3mm thick, discolored and friable with crumbly malodorous subungual debris, with pain on palpation, 1-5 B/L History and Physical Notes * HPI (History of Present Illness) Category Sub-Category Detail Notes Painful Nails Pt States Last PCP Visit: Date:: 024
--- OUTSIDE RECORDS SUMMARY | 2023-12-30 07:44 | XMS_ITS ---
Author Organization [facility] Address [address] [place] [address] Care Team Providers Care Wind Turbine Mechanic Name Role Phone Joey Shetty Primary Care Provider Lilian Augustin Unavailable [phone] Syed Encounters Encounter Location Date Provider Diagnosis [facility] [address] [place] [address] 11/06/2023 Lilian Monte PLAN OF TREATMENT Next Appt Details Provider Name:Lilian ferris, 01/21/2024 09:15:00 AM, [address] [place] [address],
== END 2023-12-28 16:50 | disposition home or self-care (01) ==
LOC: HO.HMGH 14:41
PROVIDERS: PCP Internal Medicine; Visit Provider Internal Medicine
DX: J44.9 Chronic obstructive pulmonary disease, unspecified (principal); I71.9 Aortic aneurysm of unspecified site, without rupture; L40.50 Arthropathic psoriasis, unspecified; I50.30 Unspecified diastolic (congestive) heart failure; I25.10 Atherosclerotic heart disease of native coronary artery without angina pectoris; I10 Essential (primary) hypertension; E78.00 Pure hypercholesterolemia, unspecified; G25.0 Essential tremor; Z95.2 Presence of prosthetic heart valve; E66.9 Obesity, unspecified
CPT/HCPCS: 99214

== ENCOUNTER → 2023-12-29 12:07 | Outpatient (BNVA) | payer MEDICARE, SELFPAY | PROVIDERS: PCP Internal Medicine; Visit Provider Internal Medicine ==

== ENCOUNTER → 2024-01-05 09:46 | Outpatient (BNVA) | payer MEDICARE, SELFPAY | PROVIDERS: PCP Internal Medicine; Visit Provider Internal Medicine ==

== ENCOUNTER → 2024-01-12 12:45 | Outpatient (BNVA) | payer MEDICARE, SELFPAY | PROVIDERS: PCP Internal Medicine; Visit Provider Internal Medicine ==

== ENCOUNTER → 2024-01-19 11:06 | Outpatient (BNVA) | payer MEDICARE, SELFPAY | PROVIDERS: PCP Internal Medicine; Visit Provider Internal Medicine ==

== ENCOUNTER → 2024-01-26 09:17 | Outpatient (BNVA) | payer MEDICARE, SELFPAY | PROVIDERS: PCP Internal Medicine; Visit Provider Internal Medicine ==

== ENCOUNTER → 2024-02-02 11:41 | Outpatient (BNVA) | payer MEDICARE, SELFPAY | PROVIDERS: PCP Internal Medicine; Visit Provider Internal Medicine ==

== ENCOUNTER → 2024-02-09 14:41 | Outpatient (BNVA) | payer MEDICARE, SELFPAY | PROVIDERS: PCP Internal Medicine; Visit Provider Internal Medicine ==

== ENCOUNTER → 2024-02-16 12:15 | Outpatient (BNVA) | payer MEDICARE, SELFPAY | PROVIDERS: PCP Internal Medicine; Visit Provider Internal Medicine ==

== ENCOUNTER → 2024-02-23 09:53 | Outpatient (BNVA) | payer MEDICARE, SELFPAY | PROVIDERS: PCP Internal Medicine; Visit Provider Internal Medicine ==

== ENCOUNTER → 2024-03-01 11:27 | Outpatient (BNVA) | payer MEDICARE, SELFPAY | PROVIDERS: PCP Internal Medicine; Visit Provider Internal Medicine ==

== ENCOUNTER 2024-03-03 13:20 | Outpatient (AMB) | payer MEDICARE, SELFPAY ==
--- NOTE | 2024-03-03 13:30 | MHC.OFFVIS ---
Vital Signs 03/03/24 13:32 Height 6 ft 1 in Weight 241 lb BMI 31.8 BP 112/70 Blood Pressure Location Rt brachial Position Sitting Intake Visit Reasons: 6 month F/U Intake Note: patient presents for follow up Allergies rosuvastatin Allergy (Severe, Verified 03/03/24 13:32) muscle aches Medication List - Last Reconciled 03/03/24 by LINNEA Wallace albuterol sulfate 90 mcg/actuation (Ventolin HFA) 2 puffs inhalation Q6H PRN allopurinol 300 mg PO DAILY amoxicillin 2,000 mg orally 1 hour before the procedure; aspirin 81 mg PO DAILY atorvastatin 40 mg PO DAILY budesonide 0.5 mg inhalation BID bumetanide 2 mg PO DAILY calcipotriene 0.005% appl topical carbidopa-levodopa 25-100 mg 2 tabs PO TID 90 days cholecalciferol (vitamin D3) 50 mcg PO DAILY hkkmdpuxnnf-mlhfnciat-jaupekzc 200-62.5-25 mcg (Trelegy Ellipta) 1 inh inhalation DAILY 90 days Humira(CF) Pen (adalimumab) 40 mg (0.4 mL) subcut Q2W NS ipratropium-albuterol 0.5 mg-3 mg(2.5 mg base)/3 mL 3 mL inhalation BID 90 days isosorbide mononitrate ER 30 mg PO DAILY isosorbide mononitrate ER 60 mg PO DAILY latanoprost 0.005% 0 drps ophthalmic (eye) magnesium oxide 800 mg PO DAILY metoprolol tartrate 75 mg PO BID nebulizers As directed potassium chloride ER (Klor-Con M) 20 mEq PO BID propranolol 10 mg PO BID 90 days Taltz Autoinjector (2 Pack) (ixekizumab) 80 mg subcut Q4W NS warfarin 7.5 mg See Protocol PO .QD warfarin 5 mg See Protocol PO DAILY HPI Comments Details: 68 -yr-old male presents for f/u visit for ET. Pt reports denies any significant interval medical history changes. Feels the tremor is stable. May notice when trying to write or when swinging his golf club or when driving. Tried taking extra CD-LD prior to playing golf, was not very helpful. Pt's current tremor medication regimen: CD-LD 25-100mg 2 tabs tid (breakfast, lunch, after dinner/before bed). Propranolol 10mg bid. ADL's: Ind, but has to sit put on lower body clothing as he can be off-balance. Swallowing: None Drooling: None Orthostatic lightheadedness: At times, stands slowly. No syncope. Constipation: None Urinary symptoms: None Tremor: as above Dyskinesia: None Stiffness: Stiffness, especially in the morning in his BLE legs and knees/feet, Rarely cramps. Gait changes: Unsteady if standing on one foot Freezing: None Falls: None Mood: Stable Hallucinations: None Memory: More difficulty with distant names- may come after a few minutes. Sleep: Ok Exercise: He did do pulmonary rehab. He has plans to sign up for the [facility]. [facility] Medical History Hearing deficit Chronic restrictive lung disease Pulmonary nodules Syncope Essential tremor Hypercholesterolemia Hypertension Coronary artery disease COPD (chronic obstructive pulmonary disease) Aortic aneurysm Pulmonary fibrosis Surgical History S/P placement of cardiac pacemaker Aortic valve replaced History of aneurysm History of heart artery stent History of open reduction and internal fixation (ORIF) procedure Family History Mother No problems noted. Father No problems noted. Social History Housing: House Alcohol intake: current Alcohol intake frequency: a few times a week Alcohol type: beer Patient Tobacco Use Status: Former Tobacco user Tobacco use type: Cigarette e-Cigarette/Vaping Use: Never Used Second Hand Smoke Exposure: No service: No Current occupational status: employed Cognitive needs: No Hearing needs: No Vision needs: Yes Physical Exam Vital Signs: Last Vital Signs BP 112/70 03/03/24 13:32 BMI result Body Mass Index 31.8 Const General: cooperative and no acute distress Resp Effort & Inspection: normal respiratory effort and able to speak in complete sentences Neuro Other: General: A&O x's 3 Expression: Ok Voice: Intact Tremor: Mild LUE rest tremor, LUE postural tremor, BUE wing beat tremor Tone: Mild LUE tone Dyskinesia: None FFM: Ok Foot taps: LLE mildly decreased Gait: Steady gait Psych: Pleasant affect Assessment & Plan Assessment & Plan (1) Essential tremor: Code(s): G25.0 - Essential tremor Category: Medical (2) Nocturnal leg cramps: Comment: stiffness Code(s): G47.62 - Sleep related leg cramps Category: Medical Plan Continue Sinemet 25/100 mg 2 tabs TID. Continue Propranolol 10 mg BID. Monitor tremors, stiffness, cramps. Concur w/ continuing pulmonary PT exercises trhough [employer]. Pt to follow-up in 6 months or sooner prn. Medications: Refilled propranolol 10 mg PO BID 90 days 180 tabs 6RF carbidopa-levodopa 25-100 mg 2 tabs PO TID 90 days 540 tabs 6RF Discontinued Humira(CF) Pen (adalimumab) Discontinued Reason: Patient no longer taking 40 mg (0.4 mL) subcut Q2W 2 ea 2RF NS L40.50 - Arthropathic psoriasis, unspecified Coding Level of Care Code Est Pt Level 4 (69124) Diagnoses Essential tremor G25.0 Nocturnal leg cramps G47.62
[2024-03-03 13:32] VITALS: BP 112/70; BMI 31.8
== END 2024-03-03 14:30 | disposition home or self-care (01) ==
PROVIDERS: PCP Internal Medicine; Visit Provider Nurse Practitioner Family
DX: G25.0 Essential tremor (principal); G47.62 Sleep related leg cramps
CPT/HCPCS: 99214

== ENCOUNTER → 2024-03-03 13:20 | Outpatient (BNVA) | payer MEDICARE, SELFPAY | PROVIDERS: PCP Internal Medicine; Visit Provider Nurse Practitioner Family | DX: G25.0 Essential tremor (principal); G47.62 Sleep related leg cramps; L40.50 Arthropathic psoriasis, unspecified | CPT/HCPCS: 99212 ==

== ENCOUNTER 2024-03-07 14:09 | Outpatient (AMB) | payer MEDICARE, SELFPAY ==
--- NOTE | 2024-03-07 14:17 | MHC.OFFVIS ---
Vital Signs 03/07/24 14:20 Height 6 ft 1 in Weight 240 lb 1.334 oz BMI 31.7 BP 90/62 Blood Pressure Location Lt brachial Position Sitting Pulse 68 Pulse Source Pulse Oximeter Pulse Oximetry (%) 96 Oxygen Delivery Method Room Air Intake Visit Reasons: PsA Intake Note: Patient presents for PsA. Allergies rosuvastatin Allergy (Severe, Verified 03/07/24 14:20) muscle aches Medication List - Last Reconciled 03/07/24 by Valentin Egan MD albuterol sulfate 90 mcg/actuation (Ventolin HFA) 2 puffs inhalation Q6H PRN allopurinol 300 mg PO DAILY amoxicillin 2,000 mg orally 1 hour before the procedure; aspirin 81 mg PO DAILY atorvastatin 40 mg PO DAILY budesonide 0.5 mg inhalation BID bumetanide 2 mg PO DAILY calcipotriene 0.005% appl topical carbidopa-levodopa 25-100 mg 2 tabs PO TID 90 days cholecalciferol (vitamin D3) 50 mcg PO DAILY gqxxlqmfztq-caltbpdwx-wqdektmn 200-62.5-25 mcg (Trelegy Ellipta) 1 inh inhalation DAILY 90 days ipratropium-albuterol 0.5 mg-3 mg(2.5 mg base)/3 mL 3 mL inhalation BID 90 days isosorbide mononitrate ER 30 mg PO DAILY isosorbide mononitrate ER 60 mg PO DAILY latanoprost 0.005% 0 drps ophthalmic (eye) magnesium oxide 800 mg PO DAILY metoprolol tartrate 75 mg PO BID nebulizers As directed potassium chloride ER (Klor-Con M) 20 mEq PO BID propranolol 10 mg PO BID 90 days Taltz Autoinjector (2 Pack) (ixekizumab) 80 mg subcut Q4W NS warfarin 7.5 mg See Protocol PO .QD warfarin 5 mg See Protocol PO DAILY HPI Comments Details: This is a 68-year-old male with psoriasis, psoriatic arthritis and gout who presents for follow-up. Last visit we switched Humira to Taltz. He has been doing the Taltz for the last 3 months now. It is well tolerated. Has not had any side effects to it. He denies any joint pain or swelling. No significant psoriasis, just areas of dry skin on extensor aspect of both elbows. Has not had any gout flare-ups. He is on allopurinol 300 mg daily PFSH Medical History Hearing deficit Chronic restrictive lung disease Pulmonary nodules Syncope Essential tremor Hypercholesterolemia Hypertension Coronary artery disease COPD (chronic obstructive pulmonary disease) Aortic aneurysm Pulmonary fibrosis Surgical History S/P placement of cardiac pacemaker Aortic valve replaced History of aneurysm History of heart artery stent History of open reduction and internal fixation (ORIF) procedure Family History Mother No problems noted. Father No problems noted. Social History Housing: House Alcohol intake: current Alcohol intake frequency: a few times a week Alcohol type: beer Patient Tobacco Use Status: Former Tobacco user Tobacco use type: Cigarette e-Cigarette/Vaping Use: Never Used Second Hand Smoke Exposure: No service: No Current occupational status: employed Cognitive needs: No Hearing needs: No Vision needs: Yes Review of Systems Musc Denies arthralgias and Denies joint swelling Skin/Breast Reports dry skin Physical Exam Vital Signs: Last Vital Signs Pulse 68 03/07/24 14:20 BP 90/62 03/07/24 14:20 Pulse Ox 96 03/07/24 14:20 Oxygen Delivery Method Room Air 03/07/24 14:20 BMI result Body Mass Index 31.7 Const General: cooperative, healthy appearing and comfortable Nutritional Appearance: obese Orientation/consciousness: patient oriented x3 Limitations: no limitations HEENT Head: Yes normocephalic and Yes atraumatic Mouth: moist mucous membranes Resp Effort & Inspection: normal respiratory effort and able to speak in complete sentences Cardio Rhythm: abnormal rhythm irregularly irregular Heart sounds: Murmur heart sound present Skin Other: Subtle areas of dry skin on extensor aspect of both elbows No obvious psoriasis patches noted on exam today Neuro General: patient oriented x3 Extrem Other: Pitting edema of lower extremities No active synovitis today Assessment & Plan Assessment & Plan (1) Psoriatic arthritis: Comment: Otelza ineffective Humira started January 2023. Effective I DC'd it 11/2023 due to his history of CHF Estefania started 12/2023 effective for skin and joints Code(s): L40.50 - Arthropathic psoriasis, unspecified Category: Medical Plan: This is a 68-year-old male with psoriasis, psoriatic arthritis, gout who presents for follow-up. His psoriatic arthritis and psoriasis is very well controlled on Taltz 80 mg injection q.4 weeks Continue Taltz as prescribed Labs today and before next visit in 4 months (2) Gout: Comment: Allopurinol started February 2023 Code(s): M10.9 - Gout, unspecified Category: Medical Qualifiers: Gout site: multiple sites Gout etiology: idiopathic Chronicity: chronic Presence of tophus: without tophus Qualified Code(s): M1A.09X0 - Idiopathic chronic gout, multiple sites, without tophus (tophi) Plan: Initial uric acid level more than 10 Most recent uric acid level 11/2023 was 7.2 mg/dL. I increase allopurinol from 200 mg to 300 mg daily. Check uric acid level Continue allopurinol 300 mg daily for now (3) Psoriasis: Code(s): L40.9 - Psoriasis, unspecified Category: Medical Plan: Very well controlled on Taltz Plan I spent 29 minutes reviewing patient's chart, evaluating patient, ordering diagnostic workup, counseling patient and documenting in the chart Orders: Orders Complete Blood Count Auto Diff 4 Months L40.50 - Arthropathic psoriasis, unspecified C Reactive Protein 4 Months L40.50 - Arthropathic psoriasis, unspecified Erythrocyte Sedimentation Rate 4 Months L40.50 - Arthropathic psoriasis, unspecified Uric Acid 4 Months M1A.09X0 - Idiopathic chronic gout, multiple sites, without tophus (tophi) Uric Acid Today M1A.09X0 - Idiopathic chronic gout, multiple sites, without tophus (tophi) Comprehensive Met. Panel 4 Months L40.50 - Arthropathic psoriasis, unspecified Coding Level of Care Code Est Pt Level 4 (06690) Diagnoses Psoriatic arthritis L40.50 Idiopathic chronic gout of multiple sites without tophus M1A.09X0 Gout site: multiple sites Gout etiology: idiopathic Chronicity: chronic Presence of tophus: without tophus Psoriasis L40.9
[2024-03-07 14:20] VITALS: BP 90/62; PULSE 68; O2SAT 96; BMI 31.7
== END 2024-03-07 14:39 | disposition home or self-care (01) ==
LOC: HO.RHE 14:10
PROVIDERS: PCP Internal Medicine; Visit Provider Student in an Organized Health Care Education/Training Program
DX: L40.50 Arthropathic psoriasis, unspecified (principal); M1A.09X0 Idiopathic chronic gout, multiple sites, without tophus (tophi); L40.9 Psoriasis, unspecified
CPT/HCPCS: 99214

== ENCOUNTER → 2024-03-07 14:09 | Outpatient (BNVA) | payer MEDICARE, SELFPAY | PROVIDERS: PCP Internal Medicine; Visit Provider Student in an Organized Health Care Education/Training Program | DX: L40.50 Arthropathic psoriasis, unspecified (principal); M1A.09X0 Idiopathic chronic gout, multiple sites, without tophus (tophi) | CPT/HCPCS: 99212 ==

== ENCOUNTER → 2024-03-08 14:13 | Outpatient (BNVA) | payer MEDICARE, SELFPAY | PROVIDERS: PCP Internal Medicine; Visit Provider Internal Medicine ==

== ENCOUNTER 2024-03-22 07:13 | Outpatient (REF) | payer MEDICARE, SELFPAY ==
[2024-03-22 07:32] LABS: MANUAL DIFF FLAG NO
[2024-03-22 08:23] LABS: Basophils Absolute Auto 0.1 X10*3/uL (0.0-0.2); Eosinophils Absolute Auto 0.3 X10*3/uL (0.0-0.4); Eosinophils Percent Auto 4.2 % (0-4); Hematocrit 41.8 % (42.0-52.0); Hemoglobin 14.1 g/dl (14.0-18.0); Imm Gran Abs Auto 0.04 X10*3/uL (0.00-0.03); Imm Gran Pct Auto 0.7 % (0.0-0.4); Lymphocytes Absolute Auto 1.5 X10*3/uL (1.2-4.9); Lymphocytes Percent Auto 25.6 % (20-40); Mean Corpuscular HGB Conc 33.7 g/dl (31.0-36.0); Mean Corpuscular Hemoglobin 33.7 pg (27.0-33.0); Mean Corpuscular Volume 99.8 fL (80.0-98.0); Mean Platelet Volume 10.1 fL (9.4-12.4); Monocytes Absolute Auto 0.6 X10*3/uL (0.1-1.2); Monocytes Percent Auto 9.2 % (2-11); Neutrophils Absolute Auto 3.5 x10*3/uL (2.0-8.3); Neutrophils Percent Auto 58.3 % (45-73); Platelet Count 238 X10*3/uL (160-400); Red Blood Count 4.19 X10*6/uL (4.60-5.80); Red Cell Distribution Width 14.7 % (11.0-16.0)
[2024-03-22 08:32] LABS: Estimated Average Glucose 108 mg/dL; Hemoglobin A1C 131.1678 umol/L; Hemoglobin A1c % 5.4 % (<6.0)
[2024-03-22 08:43] LABS: B Type Natriuretic Peptide 360 pg/mL (<100)
[2024-03-22 09:02] LABS: Uric Acid 5.6 mg/dL (3.4-7.0)
[2024-03-22 09:03] LABS: Erythrocyte Sedimentation Rate 17 MM/HR (0-15)
[2024-03-22 09:22] LABS: Alanine Aminotransferase 21 U/L (0-40); Albumin Level 4.2 g/dL (3.5-5.0); Alkaline Phosphatase 74 U/L (39-117); Anion Gap 14 (12-20); Aspartate Amino Transferase 59 U/L (5-37); Bilirubin Total 2.5 mg/dL (0.0-1.0); Blood Urea Nitrogen 17 mg/dL (9-16); C Reactive Protein 0.41 mg/dL (< or = 0.50); Carbon Dioxide 31 mmol/L (22-29); Chloride 99 mmol/L (96-108); Cholesterol 162 mg/dL (<200); Estimated Glomerular Filt Rate > 60; Glucose Random 119 mg/dL (60-115); HDL Cholesterol 48 mg/dL (>40); LDL Cholesterol Calculated 77 mg/dL (<100); Sodium 140 mmol/L (135-145); Total Protein 7.4 g/dL (6.5-8.0); Triglycerides 186 mg/dL (<150)
[2024-03-22 09:28] LABS: Thyroid Stimulating Hormone 1.97 uIU/mL (0.32-4.0)
== END 2024-03-22 07:14 | disposition home or self-care (01) ==
LOC: HO.LAB 07:13
PROVIDERS: Absent Provider Internal Medicine; PCP Internal Medicine; Visit Provider Student in an Organized Health Care Education/Training Program
DX: I50.30 Unspecified diastolic (congestive) heart failure (principal); E78.00 Pure hypercholesterolemia, unspecified; L40.50 Arthropathic psoriasis, unspecified; M1A.09X0 Idiopathic chronic gout, multiple sites, without tophus (tophi); Z13.1 Encounter for screening for diabetes mellitus
CPT/HCPCS: 36415; 80053; 80061; 83036; 83880; 84443; 84550; 85025; 85652; 86140

== ENCOUNTER → 2024-03-29 11:28 | Outpatient (BNVA) | payer MEDICARE, SELFPAY | PROVIDERS: PCP Internal Medicine; Visit Provider Internal Medicine ==

== ENCOUNTER 2024-03-31 16:26 | Outpatient (AMB) | payer MEDICARE, SELFPAY ==
--- NOTE | 2024-03-31 16:31 | MHC.PC.OV ---
Vital Signs 03/31/24 16:42 Height 6 ft 1 in Weight 241 lb 6 oz BMI 31.8 BP 110/70 Blood Pressure Location Lt brachial Position Sitting Pulse 85 Pulse Source Pulse Oximeter Pulse Oximetry (%) 94 Oxygen Delivery Method Room Air Intake Visit Reasons: Physical Intake Note: Patient is here today for a physical. 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 Accompanied by: Self / Same As Patient Allergies rosuvastatin Allergy (Severe, Verified 03/31/24 16:32) muscle aches Medication List - Last Reconciled 03/31/24 by Joey Shetty MD albuterol sulfate 90 mcg/actuation (Ventolin HFA) 2 puffs inhalation Q6H PRN allopurinol 300 mg PO DAILY aspirin 81 mg PO DAILY atorvastatin 40 mg PO DAILY bumetanide 2 mg PO DAILY carbidopa-levodopa 25-100 mg 2 tabs PO TID 90 days cholecalciferol (vitamin D3) 50 mcg PO DAILY [id number]-[id number]-colwcdsq 200-62.5-25 mcg (Trelegy Ellipta) 1 inh inhalation DAILY 90 days ipratropium-albuterol 0.5 mg-3 mg(2.5 mg base)/3 mL 3 mL inhalation BID 90 days isosorbide mononitrate ER 30 mg PO DAILY isosorbide mononitrate ER 60 mg PO DAILY latanoprost 0.005% 0 drps ophthalmic (eye) magnesium oxide 800 mg PO DAILY metoprolol tartrate 75 mg PO BID nebulizers As directed potassium chloride ER (Klor-Con M) 20 mEq PO BID propranolol 10 mg PO BID 90 days Taltz Autoinjector (2 Pack) (ixekizumab) 80 mg subcut Q4W NS warfarin 7.5 mg See Protocol PO .QD warfarin 5 mg See Protocol PO DAILY Tobacco use date assessed: 12/28/23 Dental Screening Dental Screen Date: 12/28/23 HPI Physical HPI Details 68-year-old obese male with a history of COPD history of aortic aneurysm coronary artery disease hypertension hypercholesterolemia history of aortic valve replacement psoriatic arthritis congestive heart failure with preserved ejection fraction coming in for physical exam last seen in December 2023. Patient's colonoscopy last done in May 2021. Review of the notes has been following up with Rheumatology March 07 for psoriatic arthritis placed on Taltz 80 mg ejection every 4 weeks gout history increase allopurinol to 300 mg due to uric acid of 7.2.. Patient also follows up with Neurology for the tremors on propranolol and carbidopa levodopa 25/100 2 tabs 3 times a day patient also follows up with Pulmonary on DuoNeb due to cataracts steroid inhaler was decreased. Patient does have some pulmonary fibrosis stable placed on Trelegy and advised pulmonary rehab. Last notes from Cardiology echocardiogram done in August normal left ventricular chamber size moderate concentric left ventricular hypertrophy paradoxical septal motion ejection fraction 55% ascending aorta dilatation of 6 aortic arch dilatation 4.9 mechanical aortic valve good no change. hearing problem and has been advised ent referral [facility] Medical History Hearing deficit Chronic restrictive lung disease Pulmonary nodules Syncope Essential tremor Hypercholesterolemia Hypertension Coronary artery disease COPD (chronic obstructive pulmonary disease) Aortic aneurysm Pulmonary fibrosis Surgical History S/P placement of cardiac pacemaker Aortic valve replaced History of aneurysm History of heart artery stent History of open reduction and internal fixation (ORIF) procedure Family History Mother No problems noted. Father No problems noted. Social History (Updated 03/31/24 @ 17:26 by Joey Shetty MD) Housing: House Alcohol intake: current Alcohol intake frequency: a few times a week Alcohol type: beer Comment: 2x a week 1-2 drinks Patient Tobacco Use Status: Former Tobacco user Tobacco use type: Cigarette Years Smoked: quit 1996 e-Cigarette/Vaping Use: Never Used Second Hand Smoke Exposure: No service: No Current occupational status: employed Cognitive needs: No Hearing needs: No Vision needs: Yes Questionnaire PHQ-9 Over the last 2 weeks, how often have you been bothered by any of the following problems? 1. Little interest or pleasure in doing things: not at all 2. Feeling down, depressed, or hopeless: not at all 3. Trouble falling or staying asleep, or sleeping too much: not at all 4. Feeling tired or having little energy: not at all 5. Poor appetite or overeating: not at all 6. Feeling bad about yourself - or that you are a failure or have let yourself or your family down: not at all 7. Trouble concentrating on things, such as reading the newspaper or watching television: not at all 8. Moving or speaking so slowly that other people could have noticed. Or the opposite - being so fidgety or restless that you have been moving around a lot more than usual: not at all 9. Thoughts that you would be better off or of hurting yourself in some way: not at all Total score: 0 Depression Screening Interpretation: Negative Depression Screening Done: Yes 02487 - PHQ-9 Billing: Yes Source: Developed by Drs. Phillip Douglas, Terra Guy, Carl Denney and colleagues, with an educational leslye from [employer]. Thrive Questionnaire Date Thrive assessed: 03/31/24 I am a: Patient What is your living situation today?: I have a steady place to live Within the past 12 months, did the food you bought not last and you didn't have the money to get more?: Never true Within the past 12 months, did you worry whether your food would run out before you got money to buy more?: Never true Do you have trouble paying for medicines?: No Do you have trouble getting transportation to medical appointments?: No Do you have trouble paying your heating and electricity bill?: No Do you have trouble taking care of your child, family member or friend?: No Do you have trouble with day-to-day activities such as bathing, preparing meals, shopping, managing finances, etc.?: No Are you currently unemployed and looking for a job?: No Are you interested in more education?: No Please select the resources that you would like help with: None Currently or been in a relationship where the following occur: No concerns reported THRIVE Score: 0 AUDIT C Alcohol Use Questionnaire (AUDIT-C) 1. How often do you have a drink containing alcohol?: 2-4 times a month 2. How many drinks containing alcohol do you have on a typical day when you are drinking?: 1 or 2 3. How often do you have six or more drinks on one occasion?: Never Total Score: 2 PARESH-7 AMB Questionnaire PARESH-7 Date PARESH - 7 assessed: 03/31/24 Feeling nervous, anxious, or on edge: 0 = Not at all Not being able to stop or control worryin = Not at all Worrying too much about different things: 0 = Not at all Trouble relaxin = Not at all Being so restless that it is hard to sit still: 0 = Not at all Becoming easily annoyed or irritable: 0 = Not at all Feeling afraid as if something awful might happen: 0 = Not at all Total PARESH-7 score (0-4 normal; 5-9 mild; 10-14 moderate; 15-21 severe): 0 Source: Developed by Drs. Phillip Douglas, Terra Guy, Carl Denney and colleagues, with an educational leslye from [employer]. PARESH-7 Assessment Billing PARESH-7 Assessment Tool: PARESH-7 Assessment 87294 Review of Systems Const Denies poor appetite and Denies weakness Eyes Denies no additional complaints ENT Reports Normal hearing present, Denies dizziness, Denies nasal congestion, Denies tinnitus and Denies sore throat Card Denies chest pain, Denies syncope, Denies rapid heart rate and Denies dyspnea Resp Denies cough and Denies dyspnea GI Denies change in stool character, Reports constipation, Denies diarrhea, Denies nausea and Denies vomiting Denies dysuria and Denies urinary frequency Neuro Reports Normal hearing present, Denies confusion, Denies dizziness, Denies syncope and Denies weakness Psych Denies confusion Physical exam (Primary Care) Vital Signs: Last Vital Signs Pulse 85 03/31/24 16:42 BP 110/70 03/31/24 16:42 Pulse Ox 94 03/31/24 16:42 Oxygen Delivery Method Room Air 03/31/24 16:42 BMI result Body Mass Index 31.8 Tobacco/Smoking Status: Tobacco use Status Tobacco use date assessed 12/28/23 03/31/24 16:33 Patient Tobacco Use Status Former Tobacco user 03/31/24 16:33 Tobacco use type Cigarette 03/31/24 16:33 e-Cigarette/Vaping Use Never Used 03/31/24 16:33 PHQ-9: PHQ-9 Score PHQ-9: Total score 0 03/31/24 16:43 Depression Screening Interpretation: Negative Thrive Assessment: Date of Thrive Assessment Date Thrive assessed 03/31/24 03/31/24 16:33 Currently or been in a relationship where the following occur: No concerns reported Const General: No confusion Orientation/consciousness: No confusion HENMT Other: impacted cerumen right side, left TM intact Head: Yes normocephalic Ears: external ears normal Face and sinus: Yes normal facial exam Mouth: moist mucous membranes Throat: Yes tonsils normal Eyes Conjunctivae: conjunctivae normal Pupils: Equal, round and reactive pupils present and Pupil accommodation reflex normal Direct Ophthalmoscopy: normal light reflex Neck Neck: No lymphadenopathy Thyroid: Thyroid normal Chest Chest palpation & inspection: normal inspection of the chest Resp Other: bilateral bibasilar crackles noted Effort & Inspection: normal respiratory effort and no audible wheezes Auscultation: crackles, no wheezes and lung sounds not diminished Cardio Other: noted systolic click from the valve Rate: regular rate Rhythm: regular rhythm Peripheral pulses: radial pulses present and dorsalis pedis present GI Other: declined rectal exam Palpation (GI): no masses Auscultation: normal bowel sounds and normoactive bowel sounds Rectal Exam - Male: Yes deferred Other: declined Skin General skin exam: no rashes or lesions noted Rashes: no rashes Neuro General: No confusion Cranial nerves: Yes Equal, round and reactive pupils present and Yes Normal hearing present Cognition (Neuro): normal cognition Gait exam (Neuro): Normal gait present Motor exam (neuro): 5/5 motor strength present throughout Deep tendon reflexes (DTR's): Right brachioradialis reflex intensity grade: 2+, Left brachioradialis reflex intensity grade: 2+, Right patellar reflex intensity grade: 2+ and Left patellar reflex intensity grade: 2+ Extrem Other: 2+ edema pitting bilateral General: Yes edema Office Procedures Flu Questionnaire Does the patient have a severe egg allergy?: No Immunizations Fluarix Triv [id number] (PF) 45 mcg (15 mcg x 3)/0.5 mL IM syringe Performing Provider: Joey Shetty MD [place] [facility] [place] [facility] Documented (not given) by: LYLY Pisano on 03/31/24 16:43 Reason Not Given: Received Previously Coding Level of Care Code Est Pt Prev Care >65y(95079) Diagnoses Annual physical exam Z00.00 Chronic heart failure with preserved ejection fraction I50.32 Heart failure chronicity: chronic Psoriatic arthritis L40.50 Idiopathic chronic gout of multiple sites without tophus M1A.09X0 Gout site: multiple sites Gout etiology: idiopathic Chronicity: chronic Presence of tophus: without tophus Obesity (BMI 30-39.9) E66.9 Aortic valve replaced Z95.2 Essential tremor G25.0 Hypercholesterolemia E78.00 Essential hypertension I10 Hypertension type: essential hypertension Coronary artery disease involving [place] coronary artery of [place] heart without angina pectoris I25.10 Coronary Disease-Associated Artery/Lesion type: [place] artery [place] vs. transplanted heart: [place] heart Associated angina: without angina Chronic obstructive pulmonary disease, unspecified COPD type J44.9 COPD type: unspecified COPD Aneurysm of ascending aorta without rupture I71.21 Aortic location: thoracic aorta Thoracic aorta location: ascending aorta Presence of rupture: without rupture Pulmonary fibrosis J84.10 Permanent atrial fibrillation I48.21 Atrial fibrillation type: permanent Hypersomnia G47.10 PVD (peripheral vascular disease) I73.9 Additional Codes PARESH-7 Assessment Billing - PARESH-7 Assessment Tool: PARESH-7 Assessment 26962 ([id number]) PHQ-9 - 44414 - PHQ-9 Billing: Yes ([id number]) Assessment & Plan Assessment & Plan (1) Annual physical exam: Code(s): Z00.00 - Encounter for general adult medical examination without abnormal findings Category: Medical Plan: Patient is advised to eat healthy, keep well hydrated, keep active and have adequate sleep. (2) (HFpEF) heart failure with preserved ejection fraction: Code(s): I50.30 - Unspecified diastolic (congestive) heart failure Category: Medical Qualifiers: Heart failure chronicity: chronic Qualified Code(s): I50.32 - Chronic diastolic (congestive) heart failure Plan: Continue to follow-up with cardiology on Bumex 2 mg once a day weigh daily and on propranolol 10 mg twice a day /metoprolol 75 mg twice a day (3) Psoriatic arthritis: Comment: Otelza ineffective Humira started January 2023. Effective I DC'd it 11/2023 due to his history of CHF Taltz started 12/2023 effective for skin and joints Code(s): L40.50 - Arthropathic psoriasis, unspecified Category: Medical Plan: patient follows up with Rheumatology on Taltz 80 mg every 4 weeks (4) Gout: Comment: Allopurinol started February 2023 Code(s): M10.9 - Gout, unspecified Category: Medical Qualifiers: Gout site: multiple sites Gout etiology: idiopathic Chronicity: chronic Presence of tophus: without tophus Qualified Code(s): M1A.09X0 - Idiopathic chronic gout, multiple sites, without tophus (tophi) Plan: low purine diet increase in allopurinol noted with lowering of uric 5.6 (5) Obesity (BMI 30-39.9): Code(s): E66.9 - Obesity, unspecified Category: Medical Plan: dietand exercise (6) Aortic valve replaced: Comment: Bicuspid [address] [place]# 25 mechanical valve Code(s): Z95.2 - Presence of prosthetic heart valve Category: Surgical Plan: echocardiogram in August functioning well (7) Essential tremor: Code(s): G25.0 - Essential tremor Category: Medical Plan: patient follows up with Neurology on propranolol and Sinemet (8) Hypercholesterolemia: Code(s): E78.00 - Pure hypercholesterolemia, unspecified Category: Medical Plan: Avoid fried foods, chicken skin, eggs, butter margarine, pastries and meat. Be it pork or beef they have a lot of cholesterol LDL goal of less than 70 and triglyceride of less than 150 taking atorvastatin 40 mg once a day (9) Hypertension: Code(s): I10 - Essential (primary) hypertension Category: Medical Qualifiers: Hypertension type: essential hypertension Qualified Code(s): I10 - Essential (primary) hypertension Plan: Continue with blood pressure medication. Decrease salt intake and exercise patient is on metoprolol 75 mg twice a day (10) Coronary artery disease: Comment: RCA stenosis nuclear perfusion April, July 2019 catheterization no severe obstructive coronary artery disease Code(s): I25.10 - Atherosclerotic heart disease of [place] coronary artery without angina pectoris Category: Medical Qualifiers: Coronary Disease-Associated Artery/Lesion type: [place] artery [place] vs. transplanted heart: [place] heart Associated angina: without angina Qualified Code(s): I25.10 - Atherosclerotic heart disease of [place] coronary artery without angina pectoris Plan: Control the cholesterol, weight, blood pressure, (11) COPD (chronic obstructive pulmonary disease): Code(s): J44.9 - Chronic obstructive pulmonary disease, unspecified Category: Medical Qualifiers: COPD type: unspecified COPD Qualified Code(s): J44.9 - Chronic obstructive pulmonary disease, unspecified Plan: patient follows up with Pulmonary and has been placed on Trelegy and DuoNeb (12) Aortic aneurysm: Comment: Dilatation of the thoracic aorta September 2016 4.5 cm July 2017 Code(s): I71.9 - Aortic aneurysm of unspecified site, without rupture Category: Medical Qualifiers: Aortic location: thoracic aorta Thoracic aorta location: ascending aorta Presence of rupture: without rupture Qualified Code(s): I71.21 - Aneurysm of the ascending aorta, without rupture Plan: continue wearing to be followed up by Cardiology. Last echocardiogram in August was 6 cm but no cisneros (13) Pulmonary fibrosis: Comment: Small area of scarring at the left base. No evidence of active ILD. Code(s): J84.10 - Pulmonary fibrosis, unspecified Category: Medical Plan: stable and continue to be followed up by Pulmonary (14) Atrial fibrillation: Comment: PAtient mentioned Code(s): I48.91 - Unspecified atrial fibrillation Category: Medical Qualifiers: Atrial fibrillation type: permanent Qualified Code(s): I48.21 - Permanent atrial fibrillation Plan: on anticoagulation (15) Hypersomnia: Code(s): G47.10 - Hypersomnia, unspecified Category: Medical Plan: sleep study request (16) PVD (peripheral vascular disease): Code(s): I73.9 - Peripheral vascular disease, unspecified Category: Medical Plan: When sitting down elevate the legs, exercise, and support stockings Orders: Orders Influenza [id number] Immunization Today Z23 - Encounter for immunization Complete Blood Count Auto Diff 3 Months I50.32 - Chronic diastolic (congestive) heart failure Uric Acid 3 Months M1A.09X0 - Idiopathic chronic gout, multiple sites, without tophus (tophi) Comprehensive Met. Panel 3 Months E78.00 - Pure hypercholesterolemia, unspecified RT home sleep study Today G47.10 - Hypersomnia, unspecified B Type Natriuretic Peptide 3 Months I50.32 - Chronic diastolic (congestive) heart failure Lipid Panel 3 Months E78.00 - Pure hypercholesterolemia, unspecified Hemoglobin A1c 3 Months E78.00 - Pure hypercholesterolemia, unspecified
[2024-03-31 16:42] VITALS: BP 110/70; PULSE 85; O2SAT 94; BMI 31.8
== END 2024-03-31 17:46 | disposition home or self-care (01) ==
PROVIDERS: PCP Internal Medicine; Visit Provider Internal Medicine
DX: Z00.00 Encounter for general adult medical examination without abnormal findings (principal); I50.32 Chronic diastolic (congestive) heart failure; L40.50 Arthropathic psoriasis, unspecified; J44.9 Chronic obstructive pulmonary disease, unspecified; I71.21 Aneurysm of the ascending aorta, without rupture; J84.10 Pulmonary fibrosis, unspecified; I48.21 Permanent atrial fibrillation; I73.9 Peripheral vascular disease, unspecified; M1A.09X0 Idiopathic chronic gout, multiple sites, without tophus (tophi); E66.9 Obesity, unspecified; Z95.2 Presence of prosthetic heart valve; Z68.31 Body mass index [BMI] 31.0-31.9, adult

== ENCOUNTER → 2024-03-31 16:26 | Outpatient (BNVA) | payer MEDICARE, SELFPAY | PROVIDERS: PCP Internal Medicine; Visit Provider Internal Medicine | DX: Z00.00 Encounter for general adult medical examination without abnormal findings (principal); I11.0 Hypertensive heart disease with heart failure; I50.32 Chronic diastolic (congestive) heart failure; L40.50 Arthropathic psoriasis, unspecified; M1A.09X0 Idiopathic chronic gout, multiple sites, without tophus (tophi); E66.9 Obesity, unspecified; G25.0 Essential tremor; E78.00 Pure hypercholesterolemia, unspecified; Z95.2 Presence of prosthetic heart valve | CPT/HCPCS: 96127; 99397 ==

== ENCOUNTER 2024-04-04 14:21 | Outpatient (AMB) | payer MEDICARE, SELFPAY ==
[2024-04-04 14:27] VITALS: BP 120/72; PULSE 70; O2SAT 98; BMI 32.1
--- NOTE | 2024-04-04 14:27 | A.OFFVIS_ITS ---
Vital Signs 04/04/24 14:27 Height 6 ft 1 in Weight 243 lb 9.773 oz BMI 32.1 BP 120/72 Blood Pressure Location Lt brachial Position Sitting Pulse 70 Pulse Source Pulse Oximeter Pulse Oximetry (%) 98 Oxygen Delivery Method Room Air Intake Visit Reasons: COPD Software Applications Specialist Required: No Allergies rosuvastatin Allergy (Severe, Verified 04/04/24 14:30) muscle aches HPI Comments Details: The patient is a 68-year-old gentleman with a history of former smoking apparently was having respiratory symptoms back for several years now. Back in 2016 he was evaluated by Pulmonary in had a pulmonary function studies demonstrating a moderate restrictive ventilatory defect. CT scan of the chest demonstrated some interstitial changes the bases suggesting some pulmonary fibrosis and given a diagnosis of interstitial lung disease. In the meantime he also has valvular disease and status post aortic mechanical valve replacement and does follow up closely with cardiology for his coronary artery disease. Patient is noticed that for the last several months he has had progressive shortness of breath. Moderate to severe to the point that he could not even walk to the mailbox from his home due to shortness of breath. He has lost weight since he loss had his PFTs in 2016 but he still overweight. More recently he did undergo a repeat CT scan of the chest demonstrating some persistent changes to the lungs, but, those were done at [facility] and I would have to review those films. Explained to him that that likely that he does have some interstitial changes and we have to review his previous imaging to see if he has any progression. He denies any exposure to any farms or any significant occupa tional exposures. He says he does live in an old house and does have some asbestos exposed but he has not worked directly with the asbestos. He was evaluated by his primary care doctor because of the shortness of breath and he was placed on Advair. He feels that his breathing has dramatically gotten much improved. 09/02/2022 the patient is here for pulmonary follow-up he otherwise patient is doing about the same. Continue have it on exertion moderate severity. He is still working. The patient is not exercising regularly. We did offer him pulmonary rehabilitation but is not interested. I did give him a online pulmonary rehab that he consider. We did look at his pulmonary function studies and he does have a total lung capacity 55% predicted. Explained to him that this is the major and cart of his respiratory symptoms. We did look at the CAT scan that he had back in 02/28/2020 demonstrating some bibasilar scarring in addition to significant mosaic pattern. She continues use the budesonide and also albuterol. He does not feel like the albuterol is working effectively. Therefore, will switch him to DuoNeb. He is going to have another CT scan in February in regards of his aneurysm and also we can address the pulmonary issues and will repeat his PFTs in a year's time. 09/28/2023 the patient is here for a pulmonary follow-up visit. He continues have significant dyspnea on exertion. Moderate severity. Back in May the patient was admitted to hospital in [facility] for respiratory symptoms. He was initially admitted and discharged in then he went back to the hospital. He did have a CT scan of the chest demonstrating reticulonodular opacities bilaterally suggesting of an atypical pneumonia. The patient is treated appropriately. She was also having significant rhonchi and wheezing at the time. He also was volume overloaded and treated with diuretics. He was able to be discharged. He more recently did follow-up with a CT scan of here. I did personally reviewed. He has some areas of atelectasis primarily the left base and some evidence of chronic bronchitis and some mosaic pattern. He has been on nebulized therapy. Although I do believe he did better on Trelegy inhaler. Therefore I did give him a sample for month and I did send a 90 day supply to the pharmacy. We will go ahead and stop the formoterol and he will hopefully wean off the budesonide. The patient also had pulmonary function studies which we personally reviewed. He has a mixed both obstructive and restrictive ventilatory defects. Both pretty significant. Likely both contributing to his dyspnea symptoms. The patient is willing to start pulmonary rehabilitation which I believe will also help him with his underlying respiratory issues. He also has a cardiac history and aneurysms. He will be following up with Cardiology closely. It is reassuring that the CT scan did not see any significant changes in the aneurysms. 04/04/2024 the patient is here for a pulmonary follow-up visit. The patient overall has been doing okay. He has been noticing a little wheezing. Lrmn-ny-grruxoik severity. Also chest congestion. The patient has been on the Trelegy inhaler has been affecting beneficial. He still needs his nebulizer treatments twice a day because of the wheezing. In addition to that he completed the 8 weeks of pulmonary rehabilitation which she finds very helpful. He did have a CT scan of the chest in 08/29/2023 which I personally reviewed. This is ordered by his mental health aides teacher because of his aortic aneurysm. Seems like his cardiac issues are stable. His lungs still show some mosaic changes consistent with his history of small airways disease it asthma although this appears to be better when compared to his previous CT scans. The patient also has psoriatic arthritis. His working closely with rheumatology for that. In view of his chronic bronchitis in obstructive lung disease he will be a very good candidate for Daliresp. Will send him prescription to the pharmacy. He will start slowly to minimize on the adverse effects hopefully until he develops tolerance. Then he can take it daily. I am hopeful that this will help him with his persistent chronic obstructive pulmonary disease. The patient also is having daytime drowsiness. His Norwood score is elevated 04/03. The patient needs to have a sleep study. Will go ahead and follow-up with the results of the sleep study that had been already placed. Will go ahead and review the study afterwards. If he demonstrates underlying sleep apnea the patient does have significant cardiovascular risk factors and will benefit from PAP therapy. Therefore will follow-up after the results. [facility] Medical History Hearing deficit Chronic restrictive lung disease Pulmonary nodules Syncope Essential tremor Hypercholesterolemia Hypertension Coronary artery disease COPD (chronic obstructive pulmonary disease) Aortic aneurysm Pulmonary fibrosis Surgical History S/P placement of cardiac pacemaker Aortic valve replaced History of aneurysm History of heart artery stent History of open reduction and internal fixation (ORIF) procedure Family History Mother No problems noted. Father No problems noted. Social History Housing: House Alcohol intake: current Alcohol intake frequency: a few times a week Alcohol type: beer Comment: 2x a week 1-2 drinks Patient Tobacco Use Status: Former Tobacco user Tobacco use type: Cigarette Years Smoked: quit 1996 e-Cigarette/Vaping Use: Never Used Second Hand Smoke Exposure: No service: No Current occupational status: employed Cognitive needs: No Hearing needs: No Vision needs: Yes Review of Systems Const Denies body aches, Denies chills, Denies fever(s), Denies headache(s) and Denies weakness Eyes Denies blurry vision, Denies change in vision and Denies other visual disturbances ENT Denies dizziness, Denies headache(s), Denies nasal trauma, Denies neck pain, Denies disequilibrium, Denies sinus pressure and Denies sore throat Card Denies chest pain, Denies chest pain with activity, Denies leg edema, Denies palpitations, Denies dyspnea, Reports dyspnea on exertion, Denies orthopnea and Denies paroxysmal nocturnal dyspnea Resp Reports chest congestion, Reports cough, Denies pain on inspiration, Denies dyspnea, Reports dyspnea on exertion and Reports wheezing GI Denies abdominal pain, Denies change in bowel habits, Denies constipation, Denies diarrhea, Denies nausea and Denies vomiting Denies hematuria, Denies dysuria, Denies urinary frequency and Denies urinary urgency Musc Denies back pain, Denies arthralgias, Denies joint swelling and Denies neck pain Skin/Breast Denies lesions and Denies rash Neuro Denies confusion, Denies dizziness, Denies headache(s), Denies paresthesias, Denies disequilibrium and Denies weakness Psych Denies anxiety, Denies confusion, Denies depression and Denies suicidal ideation Endo Denies polydipsia, Denies polyuria and Denies palpitations Aller/Immun Reports wheezing Physical Exam Vital Signs: Last Vital Signs Pulse 70 04/04/24 14:27 BP 120/72 04/04/24 14:27 Pulse Ox 98 04/04/24 14:27 Oxygen Delivery Method Room Air 04/04/24 14:27 BMI result Body Mass Index 32.1 Const General: No confusion Orientation/consciousness: No confusion HEENT General nose exam: Abnormal external nose present and Nasal discharge present Eyes Pupils: Equal, round and reactive pupils present Neck Neck: Yes normal visual inspection, Yes full ROM and Yes no lymphadenopathy Chest Chest palpation & inspection: normal inspection of the chest Resp Effort & Inspection: normal respiratory effort and prolonged expiratory phase Auscultation: wheezes and diminished lung sounds Cardio Rate: regular rate Rhythm: regular rhythm Heart sounds: S1 normal heart sound present and S2 normal heart sound present GI Palpation (GI): Soft to palpation and nontender Auscultation: normal bowel sounds General: Yes no CVA tenderness Back/Spine/Pelvis Back: no CVA tenderness Skin General skin exam: rashes and/or lesions noted Neuro General: No confusion Cranial nerves: Yes Equal, round and reactive pupils present Assessment & Plan Assessment & Plan (1) COPD (chronic obstructive pulmonary disease): Code(s): J44.9 - Chronic obstructive pulmonary disease, unspecified Category: Medical Qualifiers: COPD type: chronic bronchitis Chronic bronchitis type: mixed simple and mucopurulent Qualified Code(s): J41.8 - Mixed simple and mucopurulent chronic bronchitis Plan: Duonebs BID Decrease Budesonide as tolerated ideally to 0.25mg to minimize risk of worsening cataracts (2) Pulmonary fibrosis: Comment: Small area of scarring at the left base. No evidence of active ILD. Code(s): J84.10 - Pulmonary fibrosis, unspecified Category: Medical (3) Pulmonary nodules: Code(s): R91.8 - Other nonspecific abnormal finding of lung field Category: Medical (4) Chronic restrictive lung disease: Code(s): J98.4 - Other disorders of lung Category: Medical Plan continue Trelegy 200 Duoneb BID start Daliresp pulmonary rehab short-acting beta agonist as needed follow-up in 6 months Medications: New roflumilast (Daliresp) 500 mcg PO DAILY 90 tabs 3RF 90 days Coding Level of Care Code Est Pt Level 4 (93635) Diagnoses Mixed simple and mucopurulent chronic bronchitis J41.8 COPD type: chronic bronchitis Chronic bronchitis type: mixed simple and mucopurulent Pulmonary fibrosis J84.10 Pulmonary nodules R91.8 Chronic restrictive lung disease J98.4 Time Spent (min) 17
== END 2024-04-04 14:50 | disposition home or self-care (01) ==
PROVIDERS: PCP Internal Medicine; Visit Provider Hospitalist
DX: J41.8 Mixed simple and mucopurulent chronic bronchitis (principal); J84.10 Pulmonary fibrosis, unspecified; R91.8 Other nonspecific abnormal finding of lung field; J98.4 Other disorders of lung
CPT/HCPCS: 99214

== ENCOUNTER → 2024-04-04 14:21 | Outpatient (BNVA) | payer MEDICARE, SELFPAY | PROVIDERS: PCP Internal Medicine; Visit Provider Hospitalist | DX: J41.8 Mixed simple and mucopurulent chronic bronchitis (principal); J84.10 Pulmonary fibrosis, unspecified; J98.4 Other disorders of lung; R91.8 Other nonspecific abnormal finding of lung field | CPT/HCPCS: 99212 ==

== ENCOUNTER → 2024-04-12 10:41 | Outpatient (BNVA) | payer MEDICARE, SELFPAY | PROVIDERS: PCP Internal Medicine; Visit Provider Internal Medicine ==

== ENCOUNTER → 2024-04-19 10:32 | Outpatient (BNVA) | payer MEDICARE, SELFPAY | PROVIDERS: PCP Internal Medicine; Visit Provider Internal Medicine ==

== ENCOUNTER 2024-04-26 10:55 | Outpatient (AMB) | payer MEDICARE, SELFPAY ==
--- NOTE | 2024-04-26 15:10 | MHC.OFFVISCO ---
Intake Intake Visit Reasons: Anticoagulation Allergies rosuvastatin Allergy (Severe, Verified 04/26/24 15:04) muscle aches Medication List - Last Reconciled 04/26/24 by Latisha Ndiaye RN albuterol sulfate 90 mcg/actuation (Ventolin HFA) 2 puffs inhalation Q6H PRN allopurinol 300 mg PO DAILY amoxicillin mg PO aspirin 81 mg PO DAILY atorvastatin 40 mg PO DAILY bumetanide 2 mg PO DAILY carbidopa-levodopa 25-100 mg 2 tabs PO TID 90 days cholecalciferol (vitamin D3) 50 mcg PO DAILY xvobjockytx-xlptautsf-pbgnxqny 200-62.5-25 mcg (Trelegy Ellipta) 1 inh inhalation DAILY 90 days ipratropium-albuterol 0.5 mg-3 mg(2.5 mg base)/3 mL 3 mL inhalation BID 90 days isosorbide mononitrate ER 30 mg PO DAILY isosorbide mononitrate ER 60 mg PO DAILY latanoprost 0.005% 0 drps ophthalmic (eye) magnesium oxide 800 mg PO DAILY metoprolol tartrate 75 mg PO BID nebulizers As directed potassium chloride ER (Klor-Con M) 20 mEq PO BID propranolol 10 mg PO BID 90 days roflumilast (Daliresp) 500 mcg PO DAILY 90 days Taltz Autoinjector (ixekizumab) 80 mg subcut Q4W NS warfarin 7.5 mg See Protocol PO .QD warfarin 5 mg See Protocol PO DAILY Nursing Note INR received from [facility] INR?? 3.2 in therapeutic range of 2.5-3.5 No changes indicated per patient assessment questionnaire No changes in health, diet, supplements or meds No signs and symptoms of bleeding or bruising or clotting Dose: 3.75mg X 4 days and 7.5mg X 3 days Retest: 1 week Anti-Coag Initial Assessment Social Hx Patient Tobacco Use Status: Former Tobacco user Tobacco use type: Cigarette alcohol intake: current Alcohol intake frequency: a few times a week Coding Level of Care Code Est Patient Level 1 Diagnoses Current use of anticoagulant therapy Z79.01 Results AMB INR Fingerstick AMB INR Fingerstick 3.2 Last Edit by Latisha Ndiaye RN on 04/26/24 15:06 [facility] Assessment & Plan Assessment & Plan (1) Current use of anticoagulant therapy: Code(s): Z79.01 - predatory animal exterminator (current) use of anticoagulants Category: Medical
== END 2024-04-26 15:13 | disposition home or self-care (01) ==
LOC: HO.ACS 10:55
PROVIDERS: PCP Internal Medicine; Visit Provider Internal Medicine
DX: Z79.01 Long term (current) use of anticoagulants (principal)

== ENCOUNTER → 2024-04-26 10:55 | Outpatient (BNVA) | payer MEDICARE, SELFPAY | PROVIDERS: PCP Internal Medicine; Visit Provider Internal Medicine | DX: Z95.2 Presence of prosthetic heart valve (principal); Z79.01 Long term (current) use of anticoagulants; Z51.81 Encounter for therapeutic drug level monitoring | CPT/HCPCS: 99211 ==

== ENCOUNTER → 2024-05-16 13:43 | Outpatient (REF) | payer MEDICARE, SELFPAY | LOC: HO.SL 13:43 | PROVIDERS: PCP Internal Medicine; Visit Provider Internal Medicine | DX: G47.10 Hypersomnia, unspecified (principal) | CPT/HCPCS: 95806 ==

== ENCOUNTER → 2024-05-16 14:02 | Outpatient (BNV) | payer MEDICARE, SELFPAY | PROVIDERS: PCP Internal Medicine; Visit Provider Internal Medicine | DX: G47.33 Obstructive sleep apnea (adult) (pediatric) (principal) | CPT/HCPCS: 95806 ==

== ENCOUNTER → 2024-05-17 09:54 | Outpatient (BNVA) | payer MEDICARE, SELFPAY | PROVIDERS: PCP Internal Medicine; Visit Provider Internal Medicine ==

== ENCOUNTER → 2024-06-14 10:44 | Outpatient (BNVA) | payer MEDICARE, SELFPAY | PROVIDERS: PCP Internal Medicine; Visit Provider Internal Medicine ==

== ENCOUNTER → 2024-06-21 13:34 | Outpatient (BNVA) | payer MEDICARE, SELFPAY | PROVIDERS: PCP Internal Medicine; Visit Provider Internal Medicine ==

== ENCOUNTER → 2024-06-28 12:48 | Outpatient (BNVA) | payer MEDICARE, SELFPAY | PROVIDERS: PCP Internal Medicine; Visit Provider Internal Medicine ==

== ENCOUNTER 2024-07-01 07:16 | Outpatient (REF) | payer MEDICARE, SELFPAY ==
--- OUTSIDE RECORDS SUMMARY | 2024-07-01 07:19 | XMS_ITS | Encounter Summary ---
Author Organization [facility] [place] [address] Care Team Providers Care Tag Machine Operator Name Role Phone Joey Shetty MD Primary Care Provider [phone] Encounter Details Date Type Department Care Team (Late st Contact Info) Description 06/29/2024 1:55 PM EST Ancillary Procedure [facility] [address] [place] [address] Arrived Social History Tobacco Use Types Packs/Day Years Used Date Smoking Tobacco: Former Cigarettes Smokeless Tobacco: Never Alcohol Use Standard Drinks/Week Comments Yes 0 (1 standard drink = 0.6 oz pur e alcohol) Sex and Gender Information Value Date Recorded Sex Assigned at Not on file Legal Sex Male 1:23 AM EST Gender Identity Not on file Sexual Orientation Not on file documented as of this encounter Plan of Treatment Upcoming Encounters Date Type Department Care Team (Late st Contact Info) Description 03/23/2025 1:00 PM EST Ancillary Procedure [facility] [address] [place] [address] documented as of this encounter Procedures Procedure Name Priority Date/Time Associated Diagnosis Comments CARDIAC DEVICE CHECK- REMOTE- MURJ Routine 06/29/2024 1:52 PM EST documented in this encounter Results * Cardiac device check - Remote- MURJ (06/29/2024 1:52 PM EST) Date Time Interrogation Session [id number] CV DEVICE CHECK Type Interrogation Session RemoteScheduled CV DEVICE CHECK Implantable Pulse Generator Track And Field Coach BIO CV DEVICE CHECK Implantable Pulse Generator Type IPG CV DEVICE CHECK Implantable Pulse Generator Model Edora 8 DR-T CV DEVICE CHECK Implantable Pulse Generator Serial Number [id number] CV DEVICE CHECK Implantable Pulse Generator Implant Date [id number] CV DEVICE CHECK Battery Remaining Percentage 50.00 CV DEVICE CHECK Battery Status Middle of Service CV DEVICE CHECK Ronak Statistic RA Percent Paced 2.00 CV DEVICE CHECK Ronak Statistic RV Percent Paced 69.00 CV DEVICE CHECK Atrial Tachy Statistic AT/AF Sargent Percent 100.00 CV DEVICE CHECK Lead Channel Sensing Intrinsic Amplitude 1.900 CV DEVICE CHECK Lead Channel Impedance Value 468 CV DEVICE CHECK Lead Channel RA Pacing Threshold Date 2024-06-16 CV DEVICE CHECK Lead Channel Setting Pacing Amplitude 4.000 CV DEVICE CHECK Lead Channel Setting Pacing Pulse Width 0.4 CV DEVICE CHECK Lead Channel Sensing Intrinsic Amplitude 15.600 CV DEVICE CHECK Lead Channel Impedance Value 527 CV DEVICE CHECK Lead Channel RV Pacing Threshold Date 2024-06-16 CV DEVICE CHECK Lead Channel Setting Pacing Amplitude 3.000 CV DEVICE CHECK Lead Channel Setting Pacing Pulse Width 0.4 CV DEVICE CHECK Ronak Setting Mode (NBG Code) DDD CV DEVICE CHECK Ronak Setting Lower Rate Limit 60 CV DEVICE CHECK Ronak Setting AT Mode Switch Rate 150 CV DEVICE CHECK Ronak Setting Maximum Tracking Rate 130 CV DEVICE CHECK Ronak Setting Maximum Sensor Rate 120 CV DEVICE CHECK Ronak Setting PAV Delay 180 CV DEVICE CHECK Ronak Setting MAHAD Delay 160 CV DEVICE CHECK Date of Service 2024-06-29 CV DEVICE CHECK Anatomical Region Laterality Modality Device Interroga tion 06/16/2024 12:1 1 AM EST Impressions 06/29/2024 1:44 PM EST Normal Remote: No Events * Normal Device Function * Alerts or events: None * Battery: Battery is at 50%, * Sensing, impedance and thresholds reviewed * Programmed parameters reviewed * Presenting rhythm: AF - NUT TIGHTENER 60's * Heart Rate Histograms reviewed * No significant changes noted Narrative Procedure Note David Wolfe MD - 06/29/2024 IMPRESSION: Normal Remote: No Events * Normal Device Function * Alerts or events: None * Battery: Battery is at 50%, * Sensing, impedance and thresholds reviewed * Programmed parameters reviewed * Presenting rhythm: AF - NUT TIGHTENER 60's * Heart Rate Histograms reviewed * No significant changes noted us David Wolfe MD CV IMPLANTABLE CARDIAC DEVICE PROCEDURES Final Result documented in this encounter Visit Diagnoses Not on filedocumented in this encounter Care Teams Tag Machine Operator Relationship Specialty Start Date End Date Joey Shetty MD [address] [place] [address] [address] [facility] [place] [address] PCP - General 08/03/13 documented as of this encounter
--- OUTSIDE RECORDS SUMMARY | 2024-07-01 07:19 | XMS_ITS | Patient Health Record ---
Author Organization [facility] Susie benavidez Billing Info Address [address] [place] [address] Care Team Providers Care Senior Scrum Master Name Role Phone BOGDAN FERGUSON Primary Care Provider JEEVAN VALENZUELA Prashant [phone] Allergies No Known Allergies Results Component Value Reference Range Notes BASIC METABOLIC PANEL([facility] HEM7) Reviewed date:07/24/2023 09:05:40 AM Interpretation: Performing Lab:[facility]#[id number] [address] [place] [address] Notes/Report: SODIUM 139 137-145 MMOL/L CORRECTED SODIUM 139 135-146 MMOL/L POTASSIUM 3.9 3.5-5.1 MMOL CHLORIDE 100 96-107 MMOL/L CARBON DIOXIDE 34 22-32 MMOL/L ANION GAP 5.0 3.0-11.0 mEq/L GLUCOSE 113 74-106 MG/DL BLOOD UREA NITROGEN 19 7-20 mg/dL CREATININE 0.70 0.7-1.5 mg/dL GFR RACE INDIFFERENT 100 >=60 race coefficient. The National Kid[employer] recommends The eGFR is calculated using the 2020 CKD-EPI Cr equation, this formula for calculation eGFR in adults. GFR will not Ref range: >/=60 mL/min/1.73 m2 calculate if sex is unknown or patient age is <18 years. which includes serum Cr, age, and sex but does not include a BUN/CREATININE RATIO 27 10-20 CALCIUM 9.7 8.4-10.2 mg/dL Reason For Referral No Information Medications Medication SIG (Take, Route, Frequency, Duration) Notes Start Date End Date Status Allopurinol 100 MG 1 tablet Orally Twic e a day Active Isosorbide Mononitrate ER 60 MG 1 tablet in the morning Orally Once a day take with 30 mg tablet to equal 90 mg total daily Active Isosorbide Mononitrate ER 30 MG 1 tablet in the morning Orally Once a day take with 60 mg tablet to equal 90 mg total daily Active Metolazone 5 MG 1 tablet Orally Once a day take on tablet 30 minutes prior to taking bumex Active Magnesium Oxide 400 MG 1 tablet Orally T wice a day Active Atorvastatin Calcium 40 MG 1 tablet Orally Once a day Active Aspirin 81 81 MG 1 tablet Orally Once a day Active Bumetanide 2 MG 1 tablet Orally Once a day for 90 days Active Warfarin Sodium 5 MG 1 tablet Orally Onc e a day Active Budesonide 0.5 MG/2ML 1 mL Inhalation Tw ice a day pulmicort Active Vitamin D3 50 MCG (1999) 1 capsule Orally Once a day Active Sinemet 25-100 MG 2 tablets Orally Thr ee times a day Active Perforomist 20 MCG/2ML 2 mL Inhalation T wice a day for 90 days Active Metoprolol Tartrate 75 MG 1 tablet with food Orally Twice a day Active Propranolol HCl 10 MG 1 tablet Orally Tw ice a day Active Potassium Chloride ER 20 MEQ 1 tablet with food Orally twice per day for 90 days Active Immunizations Vaccine Route Administration Date Status Comme nts FLU (Past vaccine of unknown type) Unknown 04/10/2023 A dministered ZOSTER (Past vaccine of unkn own type) Unknown 05/11/2021 Administered Social History Tobacco Use: Social History Observation Description Date Details (start date - stop date) Unknown if ever smoked NA - NA Tobacco Status: Question Answer Notes Patient is unknown if ever smoked Problems Problem Type SNOMED Code ICD Code Onset Dates Problem Status W/U Status Risk Notes Problem 854668340 Obesity (BMI 30-39.9) (E66.9) Active confirmed Problem 593556892 Overweight (BMI 25.0-29.9) (E66.3) Active confirmed Vital Signs Heart Rate 72 /min 07/22/2023 Oximetry 98 07/22/2023 Blood pressure diastolic 76 mm Hg 07/22/2023 Height 73 in 07/22/2023 Blood pressure systolic 113 mm Hg 07/22/2023 Weight 229.8 lbs 07/22/2023 BMI 30.32 kg/m2 07/22/2023 Encounters Encounter Location Date Provider [id number] [address] [place], [place] [id number] 09/10/2023 JEEVAN VALENZUELA [facility] E87.6 [id number] [address] [place], [place] [id number] 07/22/2023 JEEVAN VALENZUELA Hypokalemia E87.6 ; Acute heart failure with preserved ejection fraction (HFpEF) I50.31 and Nonrheumatic aortic valve stenosis I35.0 Assessments Encounter Date Diagnosis (ICD Code) Assessment Notes Treatment Notes Treatment Clinical Notes Section Notes 07/22/2023 Hypokalemia (ICD-10 - E87.6) patients potassium was 3.3 on labs done on 06/17/23. patient reports that at that time he was only taking potassium 20mEQ daily. since then he has been tkaing 20mEQ BID. K 4 weeks ago at 4.0, I will recheck BMP today. 09/10/2023 Hypokalemia (ICD-10 - E87.6) 07/22/2023 Acute heart failure with preserved ejection fraction (HFpEF) (ICD-10 - I50.31) patient appears euvolemic today. Will continue current meds and refilling bumex 2mg daily. 07/22/2023 Nonrheumatic aortic valve stenosis (ICD-10 - I35.0) [...] to be functioning normally with limited visualization. 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. [facility]. Plan Of Treatment Pending Test Test Name Order Date BASIC METABOLIC PANEL([facility]CHEM7) 2023 Future Test Test Name Order Date Basic Metabolic Panel (8) ([id number] ) 05/20/2023 Basic Metabolic Panel (8) ([id number] ) 06/10/2023 Basic Metabolic Panel (8) ([id number] ) 07/22/2023 Insurance Providers Payer Name Payer Address Payer Phone Subscriber Number Group Number Insured Name Patient Relationship to Insured Coverage Start Date Coverage End Date [facility] [employer] [address] [address] [place], [place] [id number] Eddie Gaston Self - patient is the insured Medical (General) History Medical History History ICD Code Aortic Valve Replacement A. 05/14/2023 Echocardiogram : Normal global systolic left ventricular function. EF 50 to 55%. Regional wall motion was normal. Diastolic function was indeterminate due to absence of NSR. Right ventricular systolic function was normal. RVSP 46 mmHg. Moderate pulmonary hypertension. Aortic valve is reported to be a mechanical prosthesis and seems to be functioning normally with limited visualization. Heart Failure with Preserved Ejection Fr action COPD 05/14/2022 [facility] Cardiac Ech o: Left ventricle: Normal global systolic left ventricular function. Ejection fraction was estimated in the range of 50% to 55%. Regional wall motion was normal. Diastolic function was indeterminate due to absence of NSR. Surgical History Surgery Date(Month/Year) Aortic Valve Mechanical Replacement Hospitalization History Reason Date(Month/Year) [facility] worsening dyspnea on e xertion and rest, atypical PNA, Afib, COPD 05/28/2023 [facility] COPD exacerbation, CHF exacerbatio n 05/12/2023
--- OUTSIDE RECORDS SUMMARY | 2024-07-01 07:19 | XMS_ITS ---
Author Organization [facility] Susie benavidez Billing Info Address [address] [place] [address] Care Team Providers Care Newspaper Distributor Supervisor Name Role Phone BOGDAN FERGUSON Primary Care Provider NICOLAS JEEVAN Prashant [phone] Allergies No Known Allergies REASON FOR VISIT 4 wks f/u [facility]- no medication changes, review lab results Medications Medication SIG (Take, Route, Frequency, Duration) Notes Start Date End Date Status Isosorbide Mononitrate ER 60 MG 1 tablet in the morning Orally Once a day take with 30 mg tablet to equal 90 mg total daily Active Isosorbide Mononitrate ER 30 MG 1 tablet in the morning Orally Once a day take with 60 mg tablet to equal 90 mg total daily Active Atorvastatin Calcium 40 MG 1 tablet Orally Once a day Active Bumetanide 2 MG 1 tablet Orally Once a day for 90 days Active Budesonide 0.5 MG/2ML 1 mL Inhalation Tw ice a day pulmicort Active Vitamin D3 50 MCG (1999) 1 capsule Orally Once a day Active Sinemet 25-100 MG 2 tablets Orally Thr ee times a day Active Allopurinol 100 MG 1 tablet Orally Twic e a day Active Aspirin 81 81 MG 1 tablet Orally Once a day Active Warfarin Sodium 5 MG 1 tablet Orally Onc e a day Active Perforomist 20 MCG/2ML 2 mL Inhalation T wice a day for 90 days Active Metoprolol Tartrate 75 MG 1 tablet with food Orally Twice a day Active Propranolol HCl 10 MG 1 tablet Orally Tw ice a day Active Potassium Chloride ER 20 MEQ 1 tablet with food Orally twice per day for 90 days Active Metolazone 5 MG 1 tablet Orally Once a day take on tablet 30 minutes prior to taking bumex Active Magnesium Oxide 400 MG 1 tablet Orally T wice a day Active Social History Tobacco Use: Social History Observation Description Date Details (start date - stop date) Unknown if ever smoked NA - NA Tobacco Status: Question Answer Notes Patient is unknown if ever smoked Problems Problem Type SNOMED Code ICD Code Onset Dates Problem Status W/U Status Risk Notes Problem [id number] Obesity (BMI 30-39.9) (E66.9) Active confirmed Vital Signs Height 73 in 07/22/2023 Weight 229.8 lbs 07/22/2023 BMI 30.32 kg/m2 07/22/2023 Blood pressure systolic 113 mm Hg 07/22/19 Blood pressure diastolic 76 mm Hg 024 Heart Rate 72 /min 07/22/2023 Oximetry 98 07/22/2023 Encounters Encounter Location Date Provider [id number] [address] [id number] 07/22/2023 JEEVAN VALENZUELA Hypokalemia E87.6 ; Acute [...] at 4.0, I will recheck BMP today. 07/22/2023 Acute heart failure with preserved ejection [...] normally with limited visualization. 07/22/2023 Other Primary manager meeting Dr. White [facility]. [facility]. Plan Of Treatment Treatment Notes Assessment Notes Hypokalemia patients potassium w as 3.3 on labs done on 06/17/23. patient reports that at that time he was only taking potassium 20mEQ daily. since then he has been tkaing 20mEQ BID. K 4 weeks ago at 4.0, I will recheck BMP today. Acute heart failure with pre served ejection [...] to be functioning normally with limited visualization. Future Test Test Name Order Date Basic Metabolic Panel (8) ([id number] ) 07/22/2023 Next Appt Details Follow Up: PRN, Reason: Progress Notes * Eddie GASTON BeckDOB: [birth year] (68 yo M)Acc No.[id number]:07/22/2023 PROGRESS NOTE Patient:?Eddie GASTON Appointment Provider:?JEEVAN VALENZUELA PA-C :1955???Age:68 Y???Sex:Male Sup ervising Provider:ERICA CORREA MD Date:07/22/2023 ?N#:[id number] Address:[address] [place], [place] [address]andrés CardozaAgusto, [facility] Pcp:BOGDAN FERGUSON Subjective: * Chief Complaints: * ???4 wks f/u [facility]- no medicat ion changes, review lab results * HPI: ???First Point of Contact Screening:?Do any of the following apply to you?New rash or open sores?No ?Fever and/or chills in the past 7 days?No ?Cough?No ?Muscle or body aches (other than from an injury)?No ?Sore throat?No ?In the past 3 weeks, have you or a close contact traveled outside the [facility] and you are now ill??No ?OFFICE USE (If universal masking is not in place, provide patients age 2 years and older with a facemask to wear over their mouth and nose while in the practice.):?Patient answered no to all questions OR only answered yes to question 1 ?No further action needed?07/22/2023 ???Patient History:? Mr. Gaston presents today for follow up. He was initially admitted to [facility] on 05/12/2023 for for a COPD [...] EF of 50-55% w/no regional wall motion abnormalities.? Breathing improved and patient was discharged home in stable condition.??He was discharged on oral bumex along with metolazone, which he has been using daily but upon f/u his ?VARGHESE; was ?2.7. He was placed on BID KCl and is here today for f/u.? Today he feels really good.? He is not having any?chest pain, sob, edema or orthopnea. No dizziness or syncope. He plans to remain in [place] until 08/10/23 when he returns home to [place]. 07/22/23: RTC today after 4 weeks on therapy; he has been doing great.? No signficiant peripheral edema. No sob or orthpnea. no return visits to the ED. No changes in his weight.? He plans to return home to [place] in 2 weeks. * ROS:?CARDIOLOGY:?Constitutional:?Negative for: fever, chills or headaches..?Cardiovascular:?Negative for: chest pain, chest pain with exertion, chest pressure, or palpitations..?Eyes:? Negative for: blurred vision,?.?Respiratory:?Negative for: productive cough,.?Gastrointestinal:?Negative for: difficulty swallowing, nausea, or vomiting,?.?Genitourinary:?Negative for: urine retention ,?.?Integumentary/Breast:?Negative for: rashes or redness,?.?Neurological:?Negative for:, confusion, or headache,?.?Endocrine:?Negative for: rash or skin changes,?.?Hematologic/Lymphatic:?Negative for:, bleeding,?.?Extremities:?Negative for, ulcers,?.? * Medical History:?? * Surgical History:?Aortic Anna ve Mechanical Replacement * Hospitalization/Major Diagno stic Procedure:?[facility] COPD exacerbation, CHF exacerbation 05/12/[facility] worsening dyspnea on exertion and rest, atypical PNA, Afib, COPD 05/28/2023 * Social History:?Alcohol Use?Patient?does not use alcohol ???Tobacco Status?Patient is?unknown if ever smoked ???Illicit Drug Use?Patient/Family reports:?No illicit drug use ???Ambulatory Status?:?is independent * Medications:?TakingAllopurin ol 100 MG Tablet 1 tablet Orally Twice [...] a day Taking Vitamin D3 50 MCG (1999 [place]) Capsule 1 capsule Orally Once a day Taking Warfarin Sodium 5 MG Tablet 1 tablet Orally Once a day Medication List reviewed and reconciled with the patient * Allergies:?N.K.A. Objective: * Vitals:?Ht: 73 in, Ht-cm: 18 5.42 cm, Wt: 229.8 lbs, Wt-k.24 kg, BMI:30.32, Weight Change: 1 lbs, Body Surface Area: 2.31, BP:113/76, HR:72, Oxygen sat %:98. * Examination: ???CARDIOLOGY: ?Constitutional:?no acute distress ,?.?Head and Face:?atraumatic, normocephalic ,?.?Eyes:?extraoccular muscles intact, sclera anicteric?.?Ears, Nose, Mouth, Throat:?patient can hear normal voice ,?.?Neck:?no carotid bruits, JVD or lymphadenopathy?.?Respiratory:?clear to auscultation bilaterally, good inspiratory effort ,?.?Cardiovascular:?holosystolic murmur, irregular rhythm, no rubs, or gallops. ,?.?Gastrointestinal/Abdomen:?abdomen soft, nontender, non distended ,?.?Musculoskeletal:?gait steady ,.?Extremities:?no, clubbing, cyanosis, edema, tenderness?.?Skin:?clean, dry and intact ,?.?Neurologic/Psychiatric:? appropriate mood and affect ,?.? Assessment: * Assessment: 1.?Acute heart failure with preserved ejection fraction (HFpEF) - I50.31 (Primary)?2.?Hypokalemia - E87.6?3.?Nonrheumatic aortic valve stenosis - I35.0? Plan: * Treatment: 2.?Hypokalemia?LAB: Basic Metabolic Panel (8) ([id number]) (Ordered for 07/22/2023) Notes: patients potassium was 3.3 on labs done on 06/17/23. patient reports that at that time he was only taking potassium 20mEQ daily. since then he has been tkaing 20mEQ BID. K 4 weeks ago at 4.0, I will recheck BMP today.?? 3.?Nonrheumatic aortic valve stenosis? Notes: He has done well since his valve surgery.05/14/2023 Echocardiogram: Normal global systolic left ventricular function. EF 50 to 55%. Regional wall motion was normal. Diastolic function was indeterminate due to absence of NSR. Right ventricular systolic function was normal. RVSP 46 mmHg. Moderate pulmonary hypertension. Aortic valve is reported to be a mechanical prosthesis and seems to be functioning normally with limited visualization.?? 4.?Others? Clinical Notes: [facility].?? * Procedure Codes:? * Preventive Medicine:? ??Quality Measures:?Fall Risk Assessment:?Date of Screening Completed:?07/22/2023 ?Increased Fall Risk Factors:?3 or more predisposing conditions or Diagnosis on Problem List, Polypharmacy (takes 3 or more medications that adversely affects muscle function, coordination, and physical stability) ?History Falls in Past Year:?No falls in the past year ?Influenza Immunization ?Patient's?Immunization ordered or recommended (to be given at alternate location or alternate provider); vaccine not available at time of visit ?High Blood Pressure screening and follow up:?Intervention Order?No ?Weight Assessment?Above Normal BMI Follow-Up?Weight monitoring ?Left Ventricular Ejection Fraction?Results (%)?50 ?Date ?05/14/2023 * Follow Up:?PRN * Care Plan Details* Review Notes: ERICA CORREA 2023-07-24 10:04:16* Electronically co-[place], [id number] on 07/24/2023 at 10:04 AM EDT Sign off status: Completed true * Appointment Provider:?MARIANNE VALENZUELA PA-C Date:?07/22/2023 Generated for Printing/Faxing/eTransmitting on:?07/01/2024 07:19 AM EST History and Physical Notes * HPI (History of Present Illness) Category Sub-Category Detail Notes Category Not es Patient History Mr. Gaston presents today for follow up. He was initially admitted to [facility] on 05/12/2023 for for a COPD [...] or syncope. He plans to remain in [place] until 08/10/23 when he returns home to [place]. 07/22/23: RTC today after 4 weeks on therapy; he has been doing great. No signficiant peripheral edema. No sob or orthpnea. no return visits to the ED. No changes in his weight. He plans to return home to [place] in 2 weeks. First Point of Contact Screening Do any of the following apply to you? New rash or open sores: No Fever and/or chills in the past 7 days: No Cough: No Muscle or body aches (other than from an injury): No Sore throat: No In the past 3 weeks, have yo u or a close contact traveled outside the [facility] and you are now ill? : No OFFICE USE (If [employer] is not in place, provide patients age 2 years and older with a facemask to wear over their mouth and nose while in the practice.):: Patient answered no to all questions OR only answered yes to question 1 ?No further action needed : 07/22/2023 Examination Category Sub-Category Detail Notes Category Not [...]
--- OUTSIDE RECORDS SUMMARY | 2024-07-01 07:19 | XMS_ITS | Clinical Summary ---
Author Organization [address] [facility] Address [address] [place] [address] Phone Care Team Providers Care Solar Sales Specialist Name Role Phone Joey Shetty MD Primary Care Provider [phone] Allergies No known active allergies Medications metoprolol tartrate (LOPRESSOR) 50 mg tablet TAKE 1 AND 1/2 TABLETS BY MOUTH DAILY AND 2 TABLETS BY MOUTH DAILY BEFORE DINNER 3 Active isosorbide mononitrate (IMDUR) 60 mg 24 hr tablet Take 1 tablet (60 mg total) by mouth 1 (one) time each day in the morning. 3 Active isosorbide mononitrate (IMDUR) 30 mg 24 hr tablet TAKE 1 TABLET BY MOUTH IN THE EVENING 3 Active adalimumab (Humira,CF, Pen) 40 mg/0.4 mL pen Inject into the skin. 1 shot every 2 weeks Active furosemide (LASIX) 20 mg tablet TAKE 1 TABLET BY MOUTH EVERY OTHER DAY (EVERY 48 HOURS) ALTERNATING WITH 2 TABLETS EVERY OTHER DAY (EVERY 48 HOURS) 3 Active BUDESONIDE INHL Inhale into the lungs 2 times daily. Active ALBUTEROL SULFATE INHL Inhale into the lungs 2 times daily. Active meloxicam (MOBIC) 15 mg tablet Take 15 mg by mouth daily. Active cholecalciferol (VITAMIN D-3) 25 mcg (1,000 unit) capsule Take by mouth. Activ e aspirin 81 mg chewable tablet Take 81 mg by mouth daily. Active atorvastatin (LIPITOR) 40 mg tablet Take 40 mg by mouth daily. Active carbidopa-levodo pa (SINEMET) 25-100 mg per tablet Take 2 Tablets by mouth 3 times daily. 1.5 tablet TID Active warfarin (COUMADIN) 7.5 mg tablet Take 7.5 mg by mouth daily. C managing coumadin Active dilTIAZem CD (CARDIZEM CD) 180 mg 24 hr capsule Take 180 mg by mouth daily. Active propranoloL (INDERAL) 10 mg tablet Take 10 mg by mouth 2 times daily. Active Active Problems Problem Noted Date Diagnosed Date Acute on chronic diastolic heart failure 023 Persistent atrial fibrillation 11/27/2021 Sick sinus syndrome 06/06/2021 Ascending aortic aneurysm 11/13/2020 Dyslipidemia 11/13/2020 Essential hypertension 11/13/2020 Hypertriglyceridemia 11/13/2020 CAD (coronary artery disease) 10/31/2020 CHF (congestive heart failure) 10/31/2020 SOB (shortness of breath) 10/31/2020 Encounters Date Type Department Care Team Description 06/29/2024 1:55 PM EST Ancillary Procedure [facility] - [address] [facility] [address] [place] [address] Arrived from Last 3 Months Medical History Medical History Date Comments Dyspnea DX:Dyspnea Social History Tobacco Use Types Packs/Day Years Used Date Smoking Tobacco: Former Cigarettes Smokeless Tobacco: Never Alcohol Use Standard Drinks/Week Comments Yes 0 (1 standard drink = 0.6 oz pur e alcohol) Sex and Gender Information Value Date Recorded Sex Assigned at Not on file Legal Sex Male 1:23 AM EST Gender Identity Not on file Sexual Orientation Not on file Obstetrics History Last Filed Vital Signs Vital Sign Reading Time Taken Comments Blood Pressure 136/78 08/14/2023 1:23 PM EDT Pulse 69 01/20/2023 9:52 AM EDT Temperature - - Respiratory Rate - - Oxygen Saturation - - Inhaled Oxygen Concentration - - Weight 105 kg (232 lb) 08/14/2023 1:23 PM EDT Height 185.4 cm (6' 1 ) 08/14/2023 1:23 PM EDT Body Mass Index 30.61 08/14/2023 1:23 PM EDT Plan of Treatment Upcoming Encounters Date Type Department Care Team (Late st Contact Info) Description 03/23/2025 1:00 PM EST Ancillary Procedure [facility] - [address] [facility] [address] [place] [address] Health Maintenance Due Date Last Done Comments Abdominal Aortic Aneurysm (AAA) Screen 04/19/2022 Cholesterol Screening (Lipid Panel) 04/19/2022 Colorectal Cancer Screening: Colonoscopy 04/19/2022 Depression Screening 04/19/2022 Falls Risk Assessment 04/19/2022 Hepatitis C Screening 04/19/2022 Medicare Annual Wellness Visit 04/19/2022 Social Influencers of Health Screening 04/19/2022 Hypertension/CHF/CAD Annual BMP Blood Test 03/30/2025 03/30/2024, 04/18/2021 DTaP,Tdap,and Td Vaccines (2 - Td or Tdap) 10/02/2027 10/01/2017 Zoster Vaccines Completed 03/02/2021, 12/27/2020 Pneumococcal Vaccine: 50+ Years Completed 10/08/2022, 02/11/2016 RSV Immunization Patients 60+ Years Old Completed 01/30/2023 COVID-19 Vaccine Completed 02/02/2024, , 01/25/2022, Additional history exists Influenza Vaccine Completed 02/02/2024, , 01/25/2022, Additional history exists HIB Vaccines Aged Out No longer eligi ble based on patient's age to complete this topic HPV Vaccines Aged Out No longer eligi ble based on patient's age to complete this topic Hepatitis A Vaccines Aged Out No long er eligible based on patient's age to complete this topic Hepatitis B Vaccines Aged Out No long er eligible based on patient's age to complete this topic IPV Vaccines Aged Out No longer eligi ble based on patient's age to complete this topic MMR Vaccines Aged Out No longer eligi ble based on patient's age to complete this topic Meningococcal ACWY Vaccine Aged Out N o longer eligible based on patient's age to complete this topic Meningococcal B Vacine Aged Out No lo nger eligible based on patient's age to complete this topic RSV Immunization Patients Under 20 months Aged Out No longer eligible based on patient's age to complete this topic Varicella Vaccines Aged Out No longer eligible based on patient's age to complete this topic Medical Devices Implanted Type Area Company Secretary Device Identifier Shelf Expiration Date Model / Serial / Lot Huong Busch [id number] Implanted:03/11 (Quantity not on file) Cardiac Pacemaker [employer] EDWERNER 8 NARAYAN / [id number] / Procedures Procedure Name Priority Date/Time Associated Diagnosis Comments CARDIAC DEVICE CHECK- REMOTE- MURJ Routine 06/29/2024 1:52 PM EST COMPREHENSIVE METABOLIC PANEL Routine 03/30/2024 11:52 AM EST from Last 3 Months or Most Recently Relevant to Health Maintenance Results * Cardiac device check - Remote- MURJ (06/29/2024 1:52 PM EST) Date Time Interrogation Session [id number] CV DEVICE CHECK Type Interrogation Session RemoteScheduled CV DEVICE CHECK Implantable Pulse Generator Company Secretary BIO CV DEVICE CHECK Implantable Pulse Generator Type IPG CV DEVICE CHECK Implantable Pulse Generator Model Mara BUSCH CV DEVICE CHECK Implantable Pulse Generator Serial Number [id number] CV DEVICE CHECK Implantable Pulse Generator Implant Date [id number] CV DEVICE CHECK Battery Remaining Percentage 50.00 CV DEVICE CHECK Battery Status Middle of Service CV DEVICE CHECK Ronak Statistic RA Percent Paced 2.00 CV DEVICE CHECK Ronak Statistic RV Percent Paced 69.00 CV DEVICE CHECK Atrial Tachy Statistic AT/AF [place] Percent 100.00 CV DEVICE CHECK Lead Channel [...] parameters reviewed * Presenting rhythm: AF - EMERGENCY MEDICAL TECH 60's * Heart Rate Histograms reviewed * No significant changes noted Narrative Procedure Note David Wolfe MD - 06/29/2024 IMPRESSION: Normal Remote: No Events * Normal Device Function * Alerts or events: None * Battery: Battery is at 50%, * Sensing, impedance and thresholds reviewed * Programmed parameters reviewed * Presenting rhythm: AF - EMERGENCY MEDICAL TECH 60's * Heart Rate Histograms reviewed * No significant changes noted David Wolfe MD CV IMPLANTABLE CARDIAC DEVICE PROCEDURES Final Result * (ABNORMAL) Comprehensive metabolic panel (03/30/2024 11:52 AM EST) Glucose 108(H) 70 - 99 mg/dL [facility] Blood Urea Nitrogen (BUN) 17 8 - 27 mg/dL [facility] Creatinine 0.95 0.76 - 1.27 mg/dL [facility] 1 eGFR 87 >59 mL/min/1. 73 [facility] 1 BUN/Creatinine Ratio 18 10 - 24 [facility] 1 Sodium 141 134 - 144 mmol/L [facility] 1 Potassium 4.0 3.5 - 5.2 mmol/L [facility] 1 Chloride 97 96 - 106 mmol/L [facility] 1 Carbon Dioxide 30(H) 20 - 29 mmol/L [facility] 1 Calcium 9.6 8.6 - 10.2 mg/dL [facility] Protein Total 7.1 6.0 - 8.5 g/dL [facility] 1 Albumin 4.6 3.9 - 4.9 g/dL [facility] 1 Globulin Total 2.5 1.5 - 4.5 g/dL [facility] 1 Bilirubin Total 2.6(H) 0.0 - 1.2 mg/dL [facility] 1 Alkaline Phosphatase 92 44 - 121 IU/L [facility] 1 Aspartate aminotransferase??(A ST) 45(H) 0 - 40 IU/L [facility] 1 Alanine Aminotransferase (ALT) 16 0 - 44 IU/L [facility] 1 03/30/2024 11:5 2 AM EST 03/30/2024 Narrative [facility] 1 - 03/31/2024 3:06 AM EST Performed at: ??01 - [facility] [address] ??[id number] Criminal Justice Instructor: Jannie Hughes MD, Phone: ??[phone] us David White MD LAB BLOOD ORDERABLES Final Res ult [facility] 1 from Last 3 Months or Most Recently Relevant to Health Maintenance [facility] [place] [id number] [employer] MEDICARE Care Teams Solar Sales Specialist Relationship Specialty Start Date End Date Joey Shetty MD [address] [place] [address] [address] [facility] [place] [address] PCP - General 08/03/13
--- OUTSIDE RECORDS SUMMARY | 2024-07-01 07:19 | XMS_ITS ---
Author Organization [facility] Billing Info Address [address] [place] [address] Care Team Providers Care Data Science And Iot Manager Name Role Phone BOGDAN FERGUSON Primary Care Provider SUNNYERICA Unavailable [phone] Allergies No Known Allergies REASON FOR VISIT [...] 06/24/2023 Encounters Encounter Location Date Provider Diagnosis [id number] [id number] [id number] 06/24/2023 ERICA CORREA Hypokalemia E87.6 ; Acute [...] Test Test Name Order Date BASIC METABOLIC PANEL([facility]) 2023 Next Appt Details Follow Up: 4 Weeks, Reason: f/up HF clinic Progress Notes * MARILIN Eddie SolaresDOB: [birth year] (67 yo M)Acc No.[id number]:06/24/2023 PROGRESS NOTE Patient:?Eddie GASTON Provider:?ERICA CORREA MD :1955???Age:67 Y???Sex:Male Yvon e:06/24/2023 ?N#:[id number] Address:[address] [place] [address] [id number] Pcp:BOGDAN FERGUSON Subjective: * Chief Complaints: * ???2 wks f/u [facility]- stopped me tolazone, started potassium, review lab results * HPI: ???First Point of Contact Screening:?Do any of the following apply to you?New rash or open sores?No ?Fever and/or chills in the past 7 days?No ?Cough?No ?Muscle or body aches (other than from an injury)?No ?Sore throat?No ?In the past 3 weeks, have you or a close contact traveled outside the [facility] and you are now ill??No ?OFFICE USE (If universal masking is not in place, provide patients age 2 years and older with a facemask to wear over their mouth and nose while in the practice.):?Patient answered no to all questions OR only answered yes to question 1 ?No further action needed?06/24/2023 ???Patient History:?Mr. Gaston presents today for follow up. He was initially admitted to [facility] on 05/12/2023 for for a [...] or syncope. He plans to remain in [place] until 08/10/23 when he returns home to [place]. * ROS:?CARDIOLOGY:?Constitutional:?Negative for: fever, chills or headaches..?Cardiovascular:?Negative [...] atypical PNA, Afib, COPD 05/28/2023 * Family History:?No Family Hi story documented..? * Social History:?Alcohol Use?Patient?does not use alcohol [...] reviewed and reconciled with the patient * Allergies:?N.K.A.no[Allergie s Verified] Objective: * Vitals:?Ht: 73 in, Ht-cm: 18 5.42 cm, Wt: 228.8 lbs, Wt-k.78 kg, BMI:30.18, Weight Change: 4 lbs, Body Surface Area: 2.31, BP:118/62, HR:78, Oxygen sat %:94. * ???Past Orders: ???Lab:BASIC METABOLIC PANEL ([facility]) (Order Date - 06/17/2023) (Collection Date & Time - 06/17/2023 03:03 PM) ? Value Reference Range ?BLOOD UREA NITROGEN 20 7-20 - mg/dL ?BUN/CREATININE RATIO 25 H 10-20 - ?CALCIUM 9.5 8.4-10.2 - m g/dL ?CREATININE 0.80 0.7-1.5 - mg/dL ?EGFR Race Indifferent 96 >=60 - ?GLUCOSE 108 H 74-106 - MG/ DL ?SODIUM 136 L 137-145 - MMO L/L ?POTASSIUM 3.3 L 3.5-5.1 - MMOL ?CHLORIDE 92 L 96-107 - MM OL/L ?CARBON DIOXIDE 38 H 22-32 - MMOL/L ?ANION GAP 6.0 3.0-11.0 - mEq/L ?CORRECTED SODIUM 136 135 -146 - MMOL/L * Examination: ???CARDIOLOGY: ?Constitutional:?no acute distress ,?.?Head [...] valve stenosis - I35.0? Plan: * Treatment: 2.?Hypokalemia? Notes: patients potassium was 3.3 on labs done on 06/17/23. patient reports that at that time he was only taking potassium 20mEQ daily. since then he has been tkaing 20mEQ BID. will recheck BMP at this time. ?? 3.?Nonrheumatic aortic valve stenosis? Notes: He has [...] to be functioning normally with limited visualization.?? * Procedure Codes:? * Preventive Medicine:? ??Quality Measures:?Fall Risk Assessment:?Date of Screening Completed:?06/24/2023 ?Increased Fall Risk Factors:?3 or more predisposing [...] Ejection Fraction?Results (%)?50 ?Date ?05/14/2023 * Follow Up:?4 Weeks (Reason: f/up HF clinic) * Care Plan Details* * Sign off status: Completed true * Provider:?ERICA CORREA MD Date:?06/11 Generated for Jasper espana/Sowmya/eTransmitting on:?07/01/2024 07:18 AM EST History and Physical Notes * HPI (History of Present Illness) Category Sub-Category Detail Notes Category Not es Patient History Mr. Gaston presents today for follow up. He was initially admitted to [facility] on 05/12/2023 for for a [...] or syncope. He plans to remain in [place] until 08/10/23 when he returns home to [place]. First Point of Contact Screening Do any [...] ill? : No OFFICE USE (If universal mas heather is not in place, provide patients age 2 years and older with a facemask to wear over their mouth and nose while in the practice.):: Patient answered no to all questions OR only answered yes to question 1 ?No further action needed : 06/24/2023 Examination Category [...]
--- OUTSIDE RECORDS SUMMARY | 2024-07-01 07:19 | XMS_ITS ---
Author Organization [facility] Address [address] [address] Care Team Providers Care Universal Branch Consultant Name Role Phone DiogenesPeytonnella Primary Care Provider Lilian Augustin Unavailable [phone] Allergies No Known Allergies REASON FOR VISIT At Risk Footcare, Painful Nail(s) aggravated by shoes and causing difficulty standing/walking. Medications Medication SIG (Take, Route, Frequency, Duration) Notes Start Date End Date Status Otezla 30 MG (Prior Auth#:[id number]) Oral for 90 Not-Taking dilTIAZem HCl ER Beads 180 MG 1 capsule Orally Once a day for 30 day(s) Not-Taking Rosuvastatin Calcium 20 MG (Prior Auth#:[id number]) Oral for 90 Not-Taking Humira Not-Taking Medrol 4 MG as directed Orally 02/22/2021 Not-Taking Spiriva Respimat 2.5 MCG/ACT (Prior Auth#:[id number]) Inhalation for 30 Not-Taking Advair Diskus 250-50 MCG/DOSE (Prior Auth#:[id number]) Inhalation for 90 Not-Taking Isosorbide Mononitrate ER 30 MG (Prior Auth#:[id number]) Oral for 90 Active Magnesium Oxide 400 (241.3 Mg) MG (Prior Auth#:[id number]) Oral for 90 Active Albuterol Sulfate HFA 108 (90 Base) MCG/ACT (Prior Auth#:[id number]) Inhalation for 30 Active Nebulizer Active Warfarin Sodium 7.5 MG (Prior Auth#:[id number]) Oral for 90 Active Propranolol HCl 10 MG (Prior Auth#:[id number]) Oral for 90 Active Metoprolol Tartrate 75 MG 1 tablet with food Orally Twice a day for 30 day(s) Active Meloxicam 7.5 MG (Prior Auth#:[id number]) Oral for 45 Active Taltz 40 MG/0.5ML 1 mL Subcutaneous Active Atorvastatin Calcium 40 MG (Prior Auth#:[id number]) Oral for 90 Active Aspirin Low Dose 81 MG (Prior Auth#:[id number]) Oral for 90 Active Furosemide 20 MG as directed Orally O nce a day Not-Taking Carbidopa-Levodopa 25-100 MG (Prior Auth#:[id number]) Oral for 90 Active Bumetanide 2 MG 1 tablet Orally Once a day Active Trelegy Ellipta Acti ve Social History Tobacco Use: Social History Observation Description Date Details (start date - stop date) Never Smoker NA - NA Tobacco use other than smoking: Question Answer Notes Are you an other tobacco user? No Tobacco Control (Standard) Question Answer Notes Tobacco use: Nonsmoker Problems Problem Type SNOMED Code ICD Code Onset Dates Problem Status W/U Status Risk Notes Problem Atherosclerosis of [place] artery of both lower extremities, with unspecified presence of clinical manifestation (I70.203) Active confirmed Q7(A), Q8(2B), Q9(1B,2C ) Problem [id number] Peripheral vascu lar disease (I73.9) Active confirmed Vital Signs Blood pressure systolic 120 mm Hg 06/17/19 25 Blood pressure diastolic 70 mm Hg 025 Height 6ft1in in 06/17/2024 Weight 230 lbs 06/17/2024 BMI 30.34 kg/m2 06/17/2024 Encounters Encounter Location Date Provider Diagnosis [facility] [place] [address] [place] [address] 06/17/2024 Lilian Monte Atherosclerosis of salam[place] artery of both lower extremities, with unspecified presence of clinical manifestation I70.203 ; Peripheral vascular disease I73.9 ; Tinea unguium B35.1 ; Pain in right toe(s) M79.674 and Pain in left toe(s) M79.675 Assessments Encounter Date Diagnosis (ICD Code) Assessment Notes Treatment Notes Treatment Clinical Notes Section Notes 06/17/2024 Atherosclerosis of [place]am[place] artery of both lower extremities, with unspecified presence of clinical manifestation (ICD-10 - I70.203) Q7(A), Q8(2B), Q9(1B,2C) 06/17/2024 Peripheral vascular disease (ICD-10 - I73.9) 06/17/2024 Tinea unguium (ICD-10 - B35.1) 06/17/2024 Pain in right toe(s) (ICD-10 - M79.674) 06/17/2024 Pain in left toe(s) (ICD-10 - M79.675) Plan Of Treatment Next Appt Details Follow Up: 3 Months, Reason: Provider Name:Lilian ferris, 09/09/2024 10:00:00 AM, [address] [place] [address], [id number], Procedure Notes * Category Sub-Category Detail Notes Debride Nail 6-10 Nail debridement Due to the cl inical pathology outlined in the exam findings, performance of this nail treatment is medically necessary as its management by an unskilled/untrained nonprofessional would put this patients foot and overall health at risk. Therefore, debridement to affected nail(s), as described in exam ( TA, T1, T2, T3, T4, T5, T6, T7, T8, T9, ), was performed exclusively by the physician of record to reduce/remove overall nail length, girth, thickness, subungual debris, and necrotic tissue, by manual and/or electrical means through the use of a nail nipper and/or dremel-type spice grinder, to a more viable healthy nail plate or bed tissue 6-10 nails in total. Silver nitrate was used for any petechial bleeding as necessary. Definitive antifungal treatment options, both pharmaceutical and surgical, have been reviewed and discussed with the patient. The patient solely prefers the use of intermittent/as needed professional debridement services for their nail condition and understands the need for additional periodic treatments to maintain effectiveness in symptomatic relief - 79141 Keratoma Treatment Parring or Cutting o f Benign Hyperkeratotic Lesion(s) (-56) 2-4 Lesions - Due to the at risk nature of the patients medical condition as documented in the exam findings, performance of this keratoderma treatment is medically necessary as its management by an unskilled/untrained nonprofessional would put this patients foot and overall health at risk. Therefore, the benign hyperkeratotic lesions, ( 4 ) in total, locations as stated and described in the exam ( TA, T5, T6, T9), were pared, and/or cut utilizing a sterile 15 blade, tissue nippers, and/or power dremel instrumentation by the physician of record - 59254 Progress Notes * Eddie GASTONDOB: [birth year] (68 yo M)Acc No.[id number]:06/17/2024 Progress Note Patient:?Eddie GASTON Provider:?Lilian Monte DPM :1955???Age:68 Y???Sex:Male Yvon e:06/17/2024 Address:[address] [place] [address] Agusto Cardoza [facility] Pcp:Joey Shetty Subjective: * Chief Complaints: * ???At Risk FootcarePainful N ail(s) aggravated by shoes and causing difficulty standing/walking. * HPI: ???At Risk footcare:?Pt States Last PCP Visit:?Date?04/28/2024 * ROS:?General/Constitutional:?Nausea?denies.?Vomiting?denies.?Hunger Thirst?denies.?Loss appetite?denies.?Chills?denies.?Fatigue?denies.?Fever?denies.?Night Sweats?denies.?Unexplained weight loss?denies.?Unexplained weight gain?denies.?HEENTM:?Dentures?denies.?Dizziness?denies.?Glasses/contacts?admits.?Retinopathy?de nies.?Blurred/double vision?denies.?TMJ?denies.?Discharge/drainage?denies.?Implants?denies.?Sore throat?denies.?Dental implants?denies.?Hard of hearing ?denies.?Difficulty chewing/swallowing/speaking?denies.?Nose bleeds?denies.?Sore mouth?denies.?Respiratory:?On Oxygen?denies.?Pneumonia/pleurisy?denies.?Bronchitis?denies.?Emphysema?denies.?C oughing?denies.?Cough blood?denies.?Shortness of breath?admits.?Wheezing?denies.?Cardiovascular:?Pacemaker?admits.?MVP?denies.?WPW?denies.?CHF?denies.?Heart attack?admits.?Septal defect?denies.?Rapid beat?denies.?Chest pain ?denies.?Atrial Fib.?denies.?Murmur/Palpitations?denies.?Gastrointestinal:?Hemorrhoids?denies.?Stomach/Abdominal pain?denies.?Dark blood stool?denies.?Irritable bowel ?denies.?Constipation?denies.?Diarrhea?denies.?Hematology:?Swelling?admits.?Clots?denies.?Varicose Veins?denies.?Bruising?denies.?Bleeding problem?denies.?Genitourinary:?Blood urine?denies.?Frequent/Painfu/urination/bladder control?denies.?Kidney stones?denies.?Infection (UTI)?denies.?Nephropathy?denies.?sex trans dis (STD)?denies.?Prostate?denies.?Musculoskeletal:?Hammertoes?denies.?Bunions?denies.?Back Pain?denies.?Muscle Cramps/ Resting?admits.?Muscle cramps / walking?admits.?Generalized aches and pains?admits.?Weakness?denies.?Integ.:?Prather?denies.?Scars?denies.?Corns/calluses?denies.?Ingrown nails?admits.?Painful nails?admits.?Open Sores?denies.?Rashes?denies.?Neurologic:?Difficulty sleeping?denies.?Brain disorder?denies.?Numbness?denies.?Balance trouble?denies.?Confusion?denies.?Fainting/blackouts?denies.?Tingling?denies.?Tr emors?admits.? * Medical History:? * Surgical History:?aortic kelsy ve 08/1996colonoscopy 05/31/21 * Hospitalization/Major Diagno stic Procedure:?[facility]- Having trouble breathing and retaining fluids - atypical pneumonia 06/03 * Family History:?Mother: karyn hernandez.?Father: .?Spouse: alive.? * Social History:?Tobacco Use:?Tobacco use other than smoking?Are you an other tobacco user??No ?Tobacco Control (Standard)?Tobacco use:?Nonsmoker ???Miscellaneous:?Caffeine: yes, frequency:, 1-2 cups per day. ?Children: yes, 1. ?Exercise: yes, walking, housework. ?Marital status: . ?Occupation: [employer].. * Medications:?TakingBumetanid e 2 MG Tablet 1 tablet Orally Once a day Trelegy Ellipta Taltz 40 MG/0.5ML Solution Prefilled Syringe 1 mL Subcutaneous Aspirin Low Dose 81 MG Tablet Delayed Release (Prior Auth#:[id number]) Oral Atorvastatin Calcium 40 MG Tablet (Prior Auth#:[id number]) Oral Carbidopa-Levodopa 25-100 MG Tablet (Prior Auth#:[id number]) Oral Meloxicam 7.5 MG Tablet (Prior Auth#:[id number]) Oral Metoprolol Tartrate 75 MG Tablet 1 tablet with food Orally Twice a day Nebulizer Propranolol HCl 10 MG Tablet (Prior Auth#:[id number]) Oral Warfarin Sodium 7.5 MG Tablet (Prior Auth#:[id number]) Oral Magnesium Oxide 400 (241.3 Mg) MG Tablet (Prior Auth#:[id number]) Oral Isosorbide Mononitrate ER 30 MG Tablet Extended Release 24 Hour (Prior Auth#:[id number]) Oral Albuterol Sulfate HFA 108 (90 Base) MCG/ACT Aerosol Solution (Prior Auth#:[id number]) Inhalation Taking Bumetanide 2 MG Tablet 1 tablet Orally Once a day Taking Trelegy Ellipta Taking Taltz 40 MG/0.5ML Solution Prefilled Syringe 1 mL Subcutaneous Taking Aspirin Low Dose 81 MG Tablet Delayed Release (Prior Auth#:[id number]) Oral Taking Atorvastatin Calcium 40 MG Tablet (Prior Auth#:[id number]) Oral Taking Carbidopa-Levodopa 25-100 MG Tablet (Prior Auth#:[id number]) Oral Taking Meloxicam 7.5 MG Tablet (Prior Auth#:[id number]) Oral Taking Metoprolol Tartrate 75 MG Tablet 1 tablet with food Orally Twice a day Taking Nebulizer Taking Propranolol HCl 10 MG Tablet (Prior Auth#:[id number]) Oral Taking Warfarin Sodium 7.5 MG Tablet (Prior Auth#:[id number]) Oral Taking Magnesium Oxide 400 (241.3 Mg) MG Tablet (Prior Auth#:[id number]) Oral Taking Isosorbide Mononitrate ER 30 MG Tablet Extended Release 24 Hour (Prior Auth#:[id number]) Oral Taking Albuterol Sulfate HFA 108 (90 Base) MCG/ACT Aerosol Solution (Prior Auth#:[id number]) Inhalation Not-Taking/PRNFurosemide 20 MG Tablet as directed Orally Once a day Advair Diskus 250-50 MCG/DOSE Aerosol Powder Breath Activated (Prior Auth#:[id number]) Inhalation Spiriva Respimat 2.5 MCG/ACT Aerosol Solution (Prior Auth#:[id number]) Inhalation Humira Medrol 4 MG Tablet Therapy Pack as directed Orally dilTIAZem HCl ER Beads 180 MG Capsule Extended Release 24 Hour 1 capsule Orally Once a day Otezla 30 MG Tablet (Prior Auth#:[id number]) Oral Rosuvastatin Calcium 20 MG Tablet (Prior Auth#:[id number]) Oral Medication List reviewed and reconciled with the patientNot-Taking/PRN Furosemide 20 MG Tablet as directed Orally Once a day Not-Taking/PRN Advair Diskus 250-50 MCG/DOSE Aerosol Powder Breath Activated (Prior Auth#:[id number]) Inhalation Not-Taking/PRN Spiriva Respimat 2.5 MCG/ACT Aerosol Solution (Prior Auth#:[id number]) Inhalation Not-Taking/PRN Humira Not- Taking/PRN Medrol 4 MG Tablet Therapy Pack as directed Orally Not-Taking/PRN dilTIAZem HCl ER Beads 180 MG Capsule Extended Release 24 Hour 1 capsule Orally Once a day Not-Taking/PRN Otezla 30 MG Tablet (Prior Auth#:[id number]) Oral Not- Taking/PRN Rosuvastatin Calcium 20 MG Tablet (Prior Auth#:[id number]) Oral Medication List reviewed and reconciled with the patient * Allergies:?N.K.D.A.yes[Aller gies Verified] Objective: * Vitals:?Ht: 6ft1in, Wt:230, BMI:30.34, Shoe size: 10, BP:120/70mm Hg, Ht-cm: 185.42 cm, Wt-k.33 kg. * Examination: ???Vascular: ?DP PULSES (B):?2/4, RIGHT, 0/4, LEFT.?PT PULSES (B):? 0/4, B/L.?CAPILLARY FILL TIME:? delayed, all digits, B/L.?TROPHIC CONDITION-TEXTURE/ELASTICITY/TURGOR/HAIR GROWTH (B):? decreased, fragile, thin, shiny skin, with sparse to absent hair growth, B/L.?TEMPERTURE GRADIENT (C):?, decreased, cool to cold, proximal to distal, B/L.?PIGMENTATION:?pale, B/L.?EDEMA (C):?1/4, B/L.?CLAUDICATION (C):?denies, B/L.?REST PAIN:?denies, B/L.?PARESTHESIA (C):?absent, B/L.?BURNING (C):?absent, B/L.?Nails: ?NAILS are:? Elongated, overgrown, dystrophic, lytic, greater than 3mm thick, discolored and friable with crumbly malodorous subungual debris, with pain on palpation,TA, T1, T2, T3, T4, T5, T6, T7, T8, T9.?Dermatologic: ?SKIN FINDINGS:?Skin exam reveals Keratotic lesion(s) located at, Medial plantar, TA, T5, T6, T9.?Orthopedic: ?MUSCLE STRENGTH:?5/5 all groups in a symmetrical fashion, B/L.?Neurological: ?SENSORY:?Neurological exam reveals intact sensorium, pain sensation normal, vibration sensation intact, pinprick sensation is normal in the lower extremities, Pt denies, anesthesia, burning, paresthesia, tingling, B/L.?General Examination: ?GENERAL APPEARANCE:?Reveals a pleasant, alert, well nourished, well- developed, well hydrated individual, who demonstrates proper attention to hygiene/body habitus, and is in no acute distress, Pt serves as own historian for office visit today.?ORIENTED:?person, place, and time.? Assessment: * Assessment: 1.?Peripheral vascular disea se - I73.9 (Primary)???2.?Atherosclerosis of salamat[place] artery of both lower extremities, with unspecified presence of clinical manifestation - I70.203???Notes :Q7(A), Q8(2B), Q9(1B,2C)???3.?Tinea unguium - B35.1???4.?Pain in right toe(s) - M79.674???5.?Pain in left toe(s) - M79.675??? Plan: * Treatment: * Procedures:?Debride Nail 6-10:?Nail debridement?Due to the clinical pathology outlined in the exam findings, performance of this nail treatment is medically necessary as its management by an unskilled/untrained nonprofessional would put this patients foot and overall health at risk. Therefore, debridement to affected nail(s), as described in exam ( TA, T1, T2, T3, T4, T5, T6, T7, T8, T9, ), was performed exclusively by the physician of record to reduce/remove overall nail length, girth, thickness, subungual debris, and necrotic tissue, by manual and/or electrical means through the use of a nail nipper and/or dremel-type spice grinder, to a more viable healthy nail plate or bed tissue 6- 10 nails in total. Silver nitrate was used for any petechial bleeding as necessary. Definitive antifungal treatment options, both pharmaceutical and surgical, have been reviewed and discussed with the patient. The patient solely prefers the use of intermittent/as needed professional debridement services for their nail condition and understands the need for additional periodic treatments to maintain effectiveness in symptomatic relief - 31316.?Keratoma Treatment:?Parring or Cutting of Benign Hyperkeratotic Lesion(s)?(-56) 2-4 Lesions - Due to the at risk nature of the patients medical condition as documented in the exam findings, performance of this keratoderma treatment is medically necessary as its management by an unskilled/untrained nonprofessional would put this patients foot and overall health at risk. Therefore, the benign hyperkeratotic lesions, ( 4 ) in total, locations as stated and described in the exam (?TA,?T5,?T6,?T9), were pared, and/or cut utilizing a sterile 15 blade, tissue nippers, and/or power dremel instrumentation by the physician of record - 44655.? * Procedure Codes:?80469 DEBRI DE NAIL, 6 OR MORE, Modifiers: XS 66679 TRIM SKIN LESIONS, 2 TO 4, Modifiers: XS , Q8 * Preventive Medicine:? ??Counseling:?Discussion:?-13: Office or other outpatient visit for the evaluation and management of an established patient, which required a medically appropriate history and/or examination and LOW level of DECISION MAKING for: 1 STABLE ACUTE UNCOMPLICATED PROBLEM, 2 OR MORE MINOR PROBLEMS, OR 1 STABLE CHRONIC PROBLEM, THAT POSE(S) A LOW RISK FOR MORBIDITY/MORTALITY. The visit on the day of the encounter encompassed interpreting the data and educating the patient as to the nature of their condition, treatment options available according to their individual PMH, meds, allergies, and overall health/living conditions, as well as any potential risks or complications that may occur from a failure to adhere to, and participate in, the recommended course of therapy. The discussion included a complete verbal, and/or written explanation of the examination results, any x-rays taken, the proposed diagnosis, and outline of the treatment plan. A schedule for future care needs was also explained. The patient verbalized an understanding of the instructions at this time and agreed to be an active participant in their treatment. If the patient should think of any questions or concerns after the visit, I have encouraged the patient to call the office.?Consult:?The patient was counseled on the diagnosis, treatment options, and the need for a, Vascular Consult due to changes in circulation B/L feet, pt defers at this time and will continue to monitor.? * Follow Up:?3 Months * Images: * Sign off status: Completed true * Provider:?Lilian Monte DPM Date:?11/2024 Generated for Jasper espana/Sowmya/Maryam on:?07/01/2024 07:19 AM EST History and Physical Notes * HPI (History of Present Illness) Category Sub-Category Detail Notes Category Not es At Risk footcare Pt States Last PCP Visit: Date: 4 Examination Category Sub-Category Detail Notes Category Not es Neurological SENSORY: Neurological exa m reveals intact sensorium, pain sensation normal, vibration sensation intact, pinprick sensation is normal in the lower extremities, Pt denies, anesthesia, burning, paresthesia, tingling, B/L Dermatologic SKIN FINDINGS: Skin exam reveal s Keratotic lesion(s) located at, Medial plantar, TA, T5, T6, T9 Orthopedic MUSCLE STRENGTH: 5/5 all groups in a symmetrical fashion, B/L General Examination GENERAL APPEARANCE: Reveals a pleasant, alert, well nourished, well-developed, well hydrated individual, who demonstrates proper attention to hygiene/body habitus, and is in no acute distress, Pt serves as own historian for office visit today ORIENTED: person, place, and t irene Vascular DP PULSES (B): 2/4, RIGHT, 0/4, LEFT PT PULSES (B): 0/4, B/L CAPILLARY FILL TIME: delayed, all digits , B/L TEMPERTURE GRADIENT (C): , decreased, co ol to cold, proximal to distal, B/L TROPHIC CONDITION-TEXTURE/ELASTICITY/TURGOR/HAIR GROWTH (B): decreased, fragile, thin, shiny skin, wi th sparse to absent hair growth, B/L EDEMA (C): 1/4, B/L CLAUDICATION (C): denies, B/L REST PAIN: denies, B/L PIGMENTATION: pale, B/L PARESTHESIA (C): absent, B/L BURNING (C): absent, B/L Nails NAILS are: Elongated, overg rown, dystrophic, lytic, greater than 3mm thick, discolored and friable with crumbly malodorous subungual debris, with pain on palpation,TA, T1, T2, T3, T4, T5, T6, T7, T8, T9
--- OUTSIDE RECORDS SUMMARY | 2024-07-01 07:19 | XMS_ITS ---
Author Organization [facility] Susie benavidez Billing Info Address [address] [place] [address] [place] [address] Care Team Providers Care Zigzag Topstitcher Name Role Phone BOGDAN FERGUSON Primary Care Provider [phone] JEEVAN VALENZUELA [phone] REASON FOR VISIT refill Potassium Medications Medication SIG (Take, Route, Frequency, Duration) Notes Start Date End Date Status Potassium Chloride ER 20 MEQ 1 tablet with food Orally twice per day for 90 days Active Encounters Encounter Location Date Provider [id number] [address] [id number] 09/10/2023 JEEVAN VALENZUELA Hypokalemia E87.6 Assessments Encounter Date Diagnosis (ICD Code) Assessment Notes Treatment Notes Treatment Clinical Notes Section Notes 09/10/2023 Hypokalemia (ICD-10 - E87.6) Plan Of Treatment Medication Medication Name Sig Start Date Stop Date Notes Potassium Chloride ER 20 MEQ 1 tablet wi th food Orally twice per day for 90 days Progress Notes * Eddie GASTONDOB: [birth year] (68 yo M)Acc No.[id number]:09/10/2023 Patient:?Eddie GASTON :1955???Age:68 Y???Sex:Male Address:[address] [place] [address] [place], [address] * Refills? Refill Potassium Chloride ER Tablet Extended Release, 20 MEQ, Orally, 180, 1 tablet with food, twice per day, 90 days, Refills=1 * true * Date:? Generated for Jasper espana/Sowmya/Darrylitting on:?07/01/2024 07:18 AM EST
--- OUTSIDE RECORDS SUMMARY | 2024-07-01 07:19 | XMS_ITS | Patient Health Record ---
[facility] Organization [facility] Address [address] [place] [address] Care Team Providers Care Consumer Lender Name Role Phone Joey Shetty Primary Care Provider Lilian Augustin Unavailable [phone] Allergies No Known Allergies Reason For Referral No Information Medications Medication SIG (Take, Route, Frequency, Duration) Notes Start Date End Date Status Taltz 40 MG/0.5ML 1 mL Subcutaneous Active Spiriva Respimat 2.5 MCG/ACT (Prior Auth#:[id number]) Inhalation for 30 Not-Taking Trelegy Ellipta Acti ve Advair Diskus 250-50 MCG/DOSE (Prior Auth#:[id number]) Inhalation for 90 Not-Taking Atorvastatin Calcium 40 MG (Prior Auth#:[id number]) Oral for 90 Active Isosorbide Mononitrate ER 30 MG (Prior Auth#:[id number]) Oral for 90 Active Aspirin Low Dose 81 MG (Prior Auth#:[id number]) Oral for 90 Active Magnesium Oxide 400 (241.3 Mg) MG (Prior Auth#:[id number]) Oral for 90 Active Furosemide 20 MG as directed Orally O nce a day Not-Taking Humira Not-Taking Carbidopa-Levodopa 25-100 MG (Prior Auth#:[id number]) Oral for 90 Active Albuterol Sulfate HFA 108 (90 Base) MCG/ACT (Prior Auth#:[id number]) Inhalation for 30 Active Metoprolol Tartrate 75 MG 1 tablet with food Orally Twice a day for 30 day(s) Active Meloxicam 7.5 MG (Prior Auth#:[id number]) Oral for 45 Active Medrol 4 MG as directed Orally 02/22/2021 Not-Taking Nebulizer Active Otezla 30 MG (Prior Auth#:[id number]) Oral for 90 Not-Taking dilTIAZem HCl ER Beads 180 MG 1 capsule Orally Once a day for 30 day(s) Not-Taking Bumetanide 2 MG 1 tablet Orally Once a day Active Warfarin Sodium 7.5 MG (Prior Auth#:[id number]) Oral for 90 Active Propranolol HCl 10 MG (Prior Auth#:[id number]) Oral for 90 Active Rosuvastatin Calcium 20 MG (Prior Auth#:[id number]) Oral for 90 Not-Taking Immunizations Vaccine Route Administration Date Status Comme nts COVID-19 Moderna Vaccine Unknown 04/13/2021 Administered 1st 06/13/2020 2nd 07/10/2020 Social History Tobacco Use: Social History Observation Description Date Details (start date - stop date) Never Smoker NA - NA Alcohol Screen Question Answer Notes Did you [...] Problem Status W/U Status Risk Notes Problem Acquired hammer toe of right foot (3677043967662221) Other hammer toe(s) (acquired), right foot (M20.41) Active confirmed Problem 623707508 Peripheral vascular disease (I73.9) Active confirmed Problem 110374787 Psoriatic arthritis (L40.50) Active confirmed Possible Problem 406995667589495 Osteoarthritis o f right ankle and foot (M19.071) Active confirmed Problem 57651509 Osteoarthritis o f left ankle and foot (M19.072) Active confirmed Problem Atherosclerosis of [place] artery of both lower extremities, with unspecified presence of clinical manifestation (I70.203) Active confirmed Q7(A), Q8(2B), Q9(1B,2C) Problem 6557293527707261 Gouty arthritis of left foot (M10.9) Active confirmed Problem Localized, primary osteoarthritis of the ankle and/or foot (325866912) Arthritis of joint of lesser toe, right (M19.071) Active confirmed Vital Signs Blood pressure diastolic 70 mm Hg 06/17/2024 Height 6ft1in in 06/17/2024 Blood pressure systolic 120 mm Hg 06/17/2024 Weight 230 lbs 06/17/2024 BMI 30.34 kg/m2 06/17/2024 Encounters Encounter Location Date Provider Diagnosis [address] [address] 09/02/2023 Lilian Perica Tinea unguium B35.1 ; Pain in right toe(s) M79.674 and Pain in left toe(s) M79.[address] [address] 11/11/2023 Lilian Perica Tinea unguium B35.1 ; Pain in right toe(s) M79.674 and Pain in left toe(s) M79.[address] [address] 12/22/2023 Lilian Perica Ingrown nail L60.[address] [address] 01/21/2024 Lilian Perica Tinea unguium B35.1 ; Pain in right toe(s) M79.674 and Pain in left toe(s) M79.[address] [address] 04/01/2024 Lilian Perica Tinea unguium B35.1 ; Other hammer toe(s) (acquired), right foot M20.41 ; Pain in right toe(s) M79.674 ; Pain in left toe(s) M79.675 and Arthritis of joint of lesser toe, right M19.[address] [address] 06/17/2024 Lilian Perica Atherosclerosis of [place] artery of both lower extremities, with unspecified presence of clinical manifestation I70.203 ; Peripheral vascular disease I73.9 ; Tinea unguium B35.1 ; Pain in right toe(s) M79.674 and Pain in left toe(s) M79.675 Assessments Encounter Date Diagnosis (ICD Code) Assessment Notes Treatment Notes Treatment Clinical Notes Section Notes 09/02/2023 Tinea unguium (ICD-10 - B35.1) 11/11/2023 Tinea unguium (ICD-10 - B35.1) 01/21/2024 Tinea unguium (ICD-10 - B35.1) 06/17/2024 Peripheral vascular disease (ICD-10 - I73.9) 06/17/2024 Atherosclerosis of [place] artery of both lower extremities, with unspecified presence of clinical manifestation (ICD-10 - I70.203) Q7(A), Q8(2B), Q9(1B,2C) 04/01/2024 Tinea unguium (ICD-10 - B35.1) 12/22/2023 Ingrown nail (ICD-10 - L60.0) 04/01/2024 Other hammer toe(s) (acquired), right foot (ICD-10 - M20.41) 04/01/2024 Pain in right toe(s) (ICD-10 - M79.674) 01/21/2024 Pain in right toe(s) (ICD-10 - M79.674) 11/11/2023 Pain in right toe(s) (ICD-10 - M79.674) 06/17/2024 Tinea unguium (ICD-10 - B35.1) 09/02/2023 Pain in right toe(s) (ICD-10 - M79.674) 09/02/2023 Pain in left toe(s) (ICD-10 - M79.675) 06/17/2024 Pain in right toe(s) (ICD-10 - M79.674) 11/11/2023 Pain in left toe(s) (ICD-10 - M79.675) 01/21/2024 Pain in left toe(s) (ICD-10 - M79.675) 04/01/2024 Pain in left toe(s) (ICD-10 - M79.675) 04/01/2024 Arthritis of joint of lesser toe, right (ICD-10 - M19.071) 06/17/2024 Pain in left toe(s) (ICD-10 - M79.675) Plan Of Treatment Pending Test Test Name Order Date *Uric Acid, Serum 02/22/2021 X ray : Foot, right 3V 10/03/2020 Next Appt Details Provider Name:Lilian ferris, 09/09/2024 10:00:00 AM, [address] [place], [address], Insurance Providers Payer Name Payer Address Payer Phone Subscriber Number Group Number Insured Name Patient Relationship to Insured Coverage Start Date Coverage End Date [employer] Medicare [id number] [address] [address] [place] [address] [phone] [id number] Eddie Styles Self - patient is the insured Medical (General) History Medical History History ICD Code Anxiety Heart disease Lung disease Psoriasis/eczema Measles Chicken pox Mumps Vascular grafts Joint implants/screws Replacement Heart Valves Surgical History Surgery Date(Month/Year) aortic valve 08/1996 colonoscopy 05/31/21 Hospitalization History Reason Date(Month/Year) [facility]- Having trouble breathing and retaining fluids - atypical pneumonia 06/03
--- OUTSIDE RECORDS SUMMARY | 2024-07-01 07:19 | XMS_ITS ---
Author Organization [facility] Address [address] [place] [address] Care Team Providers Care Microfilm Technician Name Role Phone Joey Shetty Primary Care Provider Lilian Augustin [phone] Encounters Encounter Location Date Provider Diagnosis [address] [address] 01/27/2024 Lilian Monte Plan Of Treatment Next Appt Details Provider Name:Lilian ferris, 09/09/2024 10:00:00 AM, [address] [place], [address], Progress Notes * Eddie GASTONDOB: [birth year] (68 yo M)Acc No.[id number]:01/27/2024 Progress Note Patient:?Eddie GASTON Provider:?Lilian Monte DPM :1955???Age:68 Y???Sex:Male Yvon e:01/27/2024 Address:[address] [place], [place] [id number] Pcp:Joey Shetty Subjective: * Chief Complaints: * ??? * Medical History:? Objective: * Vitals:? Assessment: Plan: * Treatment: * Images: * The named appointment provid er may or may not be the originator of this progress note, and it is not deemed complete until electronically signed by the appointment provider. Sign off status: Pending * Provider:?Lilian Monte DPM Date:? Generated for Jasper espana/Sowmya/Maryam on:?07/01/2024 07:19 AM EST
--- OUTSIDE RECORDS SUMMARY | 2024-07-01 07:19 | XMS_ITS ---
[facility] Address [address] [address] Care Team Providers Care Supervisor Title Name Role Phone Joey Shetty Primary Care Provider Lilian Augustin Unavailable [phone] Allergies No Known Allergies REASON FOR VISIT Painful nail(s) aggrevated by shoes causing difficulty standing/walking, Painful Toe(s) Medications Medication SIG (Take, Route, Frequency, Duration) Notes Start Date End Date Status Magnesium Oxide 400 (241.3 Mg) MG (Prior Auth#:[id number]) Oral for 90 Active Advair Diskus 250-50 MCG/DOSE (Prior Auth#:[id number]) Inhalation for 90 Active Spiriva Respimat 2.5 MCG/ACT (Prior Auth#:[id number]) Inhalation for 30 Active dilTIAZem HCl ER Beads 180 MG 1 capsule Orally Once a day for 30 day(s) Not-Taking Otezla 30 MG (Prior Auth#:[id number]) Oral for 90 Not-Taking Meloxicam 7.5 MG (Prior Auth#:[id number]) Oral for 45 Active Propranolol HCl 10 MG (Prior Auth#:[id number]) Oral for 90 Active Warfarin Sodium 7.5 MG (Prior Auth#:[id number]) Oral for 90 Active Metoprolol Tartrate 75 MG 1 tablet with food Orally Twice a day for 30 day(s) Active Nebulizer Active Furosemide 20 MG as directed Orally O nce a day Active Medrol 4 MG as directed Orally 02/22/2021 Not-Taking Atorvastatin Calcium 40 MG (Prior Auth#:[id number]) Oral for 90 Active Carbidopa-Levodopa 25-100 MG (Prior Auth#:[id number]) Oral for 90 Active Aspirin Low Dose 81 MG (Prior Auth#:[id number]) Oral for 90 Active Isosorbide Mononitrate ER 30 MG (Prior Auth#:[id number]) Oral for 90 Active Albuterol Sulfate HFA 108 (90 Base) MCG/ACT (Prior Auth#:[id number]) Inhalation for 30 Active Taltz 40 MG/0.5ML 1 mL Subcutaneous Active Rosuvastatin Calcium 20 MG (Prior Auth#:[id number]) Oral for 90 Not-Taking Humira Not-Taking Social History Tobacco Use: Social History Observation Description Date Details (start date - stop date) Former Smoker NA - NA Tobacco Use/Smoking Question Answer Notes Are you [...] Are you an other tobacco user? No Problems Problem Type SNOMED Code ICD Code Onset Dates Problem Status W/U Status Risk Notes Problem Acquired hammer toe of right foot (4821244143739577) Other hammer toe(s) (acquired), right foot (M20.41) Active confirmed Problem Localized, primary osteoarthritis of the ankle and/or foot (819688152) Arthritis of joint of lesser toe, right (M19.071) Active confirmed Vital Signs Blood pressure systolic 120 mm Hg 04/01/20 24 Blood pressure diastolic 70 mm Hg 024 Height 6ft 1in in 04/01/2024 Weight 232 lbs 04/01/2024 BMI 30.61 kg/m2 04/01/2024 Encounters Encounter Location Date Provider Diagnosis [facility] [address] [place] [address] 04/01/2024 Lilian Monte Tinea unguium B35.1 ; Other hammer toe(s) (acquired), right foot M20.41 ; Pain in right toe(s) M79.674 ; Pain in left toe(s) M79.675 and Arthritis of joint of lesser toe, right M19.071 Assessments Encounter Date Diagnosis (ICD Code) Assessment Notes Treatment Notes Treatment Clinical Notes Section Notes 04/01/2024 Tinea unguium (ICD-10 - B35.1) 04/01/2024 Other hammer toe(s) (acquired), right foot (ICD-10 - M20.41) 04/01/2024 Pain in right toe(s) (ICD-10 - M79.674) 04/01/2024 Pain in left toe(s) (ICD-10 - M79.675) 04/01/2024 Arthritis of joint of lesser toe, right (ICD-10 - M19.071) Plan Of Treatment Next Appt Details Follow Up: 2 Months, Reason: Provider Name:Lilian ferris, 09/09/2024 10:00:00 AM, [address] [place] [address], [address], Procedure Notes * Category Sub-Category Detail Notes Debride Nail 6-10 Nail debridement Performance o f this nail treatment by a nonprofessional would put this patients foot and overall health at risk. Therefore, debridement to affected nail(s), as described in exam, was performed extensively to reduce/remove overall nail length, girth, thickness, subungual debris, and necrotic tissue, by manual and/or electrical means through the use of a nail nipper and/or dremel-type microgrinder operator, to a more viable healthy nail plate [...] to maintain effectiveness in symptomatic relief - 58188 Progress Notes * Eddie GASTONDOB: [birth year] (68 yo M)Acc No.[id number]:04/01/2024 Progress Note Patient:?Eddie GASTON Provider:?Lilian Monte DPM :1955???Age:68 Y???Sex:Male Yvon e:04/01/2024 Address: [place], [place] Pcp:Joey Shetty Subjective: * Chief Complaints: * ???Painful nail(s) aggrevate d by shoes causing difficulty standing/walkingPainful Toe(s) * HPI: ???Painful Nails:?Pt States Last PCP Visit:?Date:?03/31/2024 ???Toe pain:?Nature:?tenderness, numbness.?Location:?Right foot, 2nd toe.?Course:?worse.?Aggravated by:?any pressure, shoes.?Treatments:?rest/alter normal daily activity, change in shoes.? * ROS:?General/Constitutional:?Nausea?denies.?Vomiting?denies.?Hunger Thirst?denies.?Loss appetite?denies.?Chills?denies.?Fatigue?denies.?Fever?denies.?Night Sweats?denies.?Unexplained weight loss?denies.?Unexplained [...] ve 08/1996colonoscopy 05/31/21 * Hospitalization/Major Diagno stic Procedure:?[facility]- Having trouble breathing and retaining fluids - atypical pneumonia 06/03 * Family History:?Mother: karyn wilde?Father: .?Spouse: alive.? * Social History:?Tobacco Use:?Tobacco Use/Smoking?Are you a:?former smoker ?Additional Findings: Tobacco Non-User?Current non-smoker ?Tobacco use other than smoking?Are you an other tobacco user??No ???Drugs/Alcohol:?Drugs?Have you used drugs other than those for medical reasons in the past 12 months??No ?Alcohol Screen?Did you have a drink containing alcohol in the past year??Yes ?How often did you have a drink containing alcohol in the past year??2 to 3 times a week (3 points) ?Points?3 ?Interpretation?Negative ???Miscellaneous:?Caffeine: yes, frequency:, 1-2 cups per day. ?Children: yes, 1. ?Exercise: yes, walking, housework. ?Marital status: . ?Occupation: [employer]ED [employer] * Medications:?TakingTaltz 40 MG/0.5ML Solution Prefilled Syringe 1 mL Subcutaneous Aspirin Low Dose 81 MG Tablet Delayed Release (Prior Auth#:[id number]) Oral Atorvastatin Calcium 40 MG Tablet (Prior Auth#:[id number]) Oral Carbidopa- Levodopa 25-100 MG Tablet (Prior Auth#:[id number]) Oral Furosemide 20 MG Tablet as directed Orally Once a day Meloxicam 7.5 MG Tablet (Prior Auth#:[id number]) Oral Metoprolol Tartrate 75 MG Tablet 1 tablet with food Orally Twice a day Nebulizer Propranolol HCl 10 MG Tablet (Prior Auth#:[id number]) Oral Warfarin Sodium 7.5 MG Tablet (Prior Auth#:[id number]) Oral Advair Diskus 250-50 MCG/DOSE Aerosol Powder Breath Activated (Prior Auth#:[id number]) Inhalation Spiriva Respimat 2.5 MCG/ACT Aerosol Solution (Prior Auth#:[id number]) Inhalation Magnesium Oxide 400 (241.3 Mg) MG Tablet (Prior Auth#:[id number]) Oral Isosorbide Mononitrate ER 30 MG Tablet Extended Release 24 Hour (Prior Auth#:[id number]) Oral Albuterol Sulfate HFA 108 (90 Base) MCG/ACT Aerosol Solution (Prior Auth#:[id number]) Inhalation Taking Taltz 40 MG/0.5ML Solution Prefilled Syringe 1 mL Subcutaneous Taking Aspirin Low Dose 81 MG Tablet Delayed Release (Prior Auth#:[id number]) Oral Taking Atorvastatin Calcium 40 MG Tablet (Prior Auth#:[id number]) Oral Taking Carbidopa-Levodopa 25-100 MG Tablet (Prior Auth#:[id number]) Oral Taking Furosemide 20 MG Tablet as directed Orally Once a day Taking Meloxicam 7.5 MG Tablet (Prior Auth#:[id number]) Oral Taking Metoprolol Tartrate 75 MG Tablet 1 tablet with food Orally Twice a day Taking Nebulizer Taking Propranolol HCl 10 MG Tablet (Prior Auth#:[id number]) Oral Taking Warfarin Sodium 7.5 MG Tablet (Prior Auth#:[id number]) Oral Taking Advair Diskus 250-50 MCG/DOSE Aerosol Powder Breath Activated (Prior Auth#:[id number]) Inhalation Taking Spiriva Respimat 2.5 MCG/ACT Aerosol Solution (Prior Auth#:[id number]) Inhalation Taking Magnesium Oxide 400 (241.3 Mg) MG Tablet (Prior Auth#:[id number]) Oral Taking Isosorbide Mononitrate ER 30 MG Tablet Extended Release 24 Hour (Prior Auth#:[id number]) Oral Taking Albuterol Sulfate HFA 108 (90 Base) MCG/ACT Aerosol Solution (Prior Auth#:[id number]) Inhalation Not-Taking/PRNHumira Medrol 4 MG Tablet Therapy Pack as directed Orally dilTIAZem HCl ER Beads 180 MG Capsule Extended Release 24 Hour 1 capsule Orally Once a day Otezla 30 MG Tablet (Prior Auth#:[id number]) Oral Rosuvastatin Calcium 20 MG Tablet (Prior Auth#:[id number]) Oral Medication List reviewed and reconciled with the patientNot-Taking/PRN Humira Not-Taking/PRN Medrol 4 MG Tablet Therapy Pack as directed Orally Not-Taking/PRN dilTIAZem HCl ER Beads 180 MG Capsule Extended Release 24 Hour 1 capsule Orally Once a day Not-Taking/PRN Otezla 30 MG Tablet (Prior Auth#:[id number]) Oral Not-Taking/PRN Rosuvastatin Calcium 20 MG Tablet (Prior Auth#:[id number]) Oral Medication List reviewed and reconciled with the patient * Allergies:?N.K.D.A.yes[Aller gies Verified] Objective: * Vitals:?Ht: 6ft 1in, Wt:232, BMI:30.61, Shoe size: 10, BP:120/70mm Hg, Ht-cm: 185.42 cm, Wt-k.23 kg. * Examination: ???Nails: ?NAILS are:?Elongated, overgrown, dystrophic, lytic, greater than 3mm thick, discolored and friable with crumbly malodorous subungual debris, with pain on palpation, 1-5 B/L.?Orthopedic: ?DIGITAL DEFORMITIES:?Digital contracture, PIPJ, 2-5 B/L, incompl-reducible with WB, or to push-up test, no over, nor underlapping, Digital contracture, DIPJ, non-reducible with WB or to push-up test T6.?FOOTWEAR:? shoe gear properties exacerbate patients foot/toe deformity.?General Examination: ?GENERAL APPEARANCE:?Reveals a pleasant, alert, well nourished, well- developed, well hydrated individual, who demonstrates proper attention to hygiene/body habitus, and is in no acute distress, Pt serves as own historian for office visit today.?ORIENTED:?person, place, and time.?Vascular: ?DP PULSES(B):?1/4, B/L.?PT PULSES(B):?0/4, B/L.?CAPILLARY FILL TIME:?4 secs. per digit.? Assessment: * Assessment: 1.?Tinea unguium - B35.1???2 .?Other hammer toe(s) (acquired), right foot - M20.41 (Primary)???3.?Pain in right toe(s) - M79.674???4.?Pain in left toe(s) - M79.675???5.?Arthritis of joint of lesser toe, right - M19.071??? Plan: * Treatment: * Procedures:?Debride Nail 6-10:?Nail debridement?Performance of this nail treatment by a nonprofessional would put this patients foot and overall health at risk. Therefore, debridement to affected nail(s), as described in exam, was performed extensively to reduce/remove overall nail length, girth, thickness, subungual debris, and necrotic tissue, by manual and/or electrical means through the use of a nail nipper and/or dremel-type microgrinder operator, to a more viable healthy nail plate [...] to maintain effectiveness in symptomatic relief - 89707.? * Procedure Codes:?42707 DEBRI DE NAIL, 6 OR MORE * Preventive Medicine:? ??Counseling:?Discussion:?-13: Office or other [...] have encouraged the patient to call the office.?Digital Surgery:?Digital surgery was discussed with the patient, including the risks of surgery(below), vs not having surgery (persistent pain, deformity, risk for skin ulceration/infection, loss of toe), the potential surg complications, the anesthesia, and the usual post-op course. No guarentees were given. We discussed the potential procedure complications including, but not limited to: pain, swelling, bleeding, scarring, numbness, infection, delayed/non healing, floppy/unstable/shorthened toe, recurrence, failure of the procedure, overcorrection leading to plantarflexed/downward positioned toe, recurrence, need for further surgery, as well as the possibility for loss of the toe itself. We discussed the use of local anesthesia, and the usual post-op course for healing. No guarentees were given. The patient verbally indicated a full understanding of the above conversation, and any other of their questions were answered to their satisfaction. Alternatives to the procedure were also discussed, including conservative care. I also discussed the usual post-operative course and gave no guarantees regarding outcome.?Digital Treatment:?HT- I explained to the patient the possible etiologies of Hammertoes, including genetics/foot type/shoegear/activity level/exercise routine and the risks/benefits of all the different treatment options for their pain including: No treatment at all, Rest, Ice, New/supportive/wider/deeper Shoegear, Digital Padding/Strapping/Taping/Bracing/Gel protective sleeves, Foot/Ankle AFO Bracing, Stretching exercises, Deep Tissue Massage, Arch support/shoe inserts with splay metatarsal padding, and Custom orthoses. I insisted that any digital devices be removed daily and not worn overnight for safety. The patient is to carefully examine the toes daily for any skin irritation while using any splinting or padding device. The advantages and disadvantages of each option were discussed and the patients questions re: shoegear, padding, custom vs prefabricated inserts, activity level, and consistency in home treatment regimens for optimal success were answered to their verbally confirmed satisfaction.?Shoe Gear Counseling:?The patient and I reviewed the types of shoes they should be wearing. My recommendation included obtaining a well-fitted shoe with a good supportive, non-foldable nor twistable sole, plenty of toe/room for the forefoot, and proper arch support. Based on todays examination, I recommended the patient look for new shoes, by having their feet professionally measured. We discussed that generally the best time of the day for a shoe fitting is the afternoon. Different shoes types and brands to best match the patients occupation and vocation were discussed. Specific brand selection will be up to the patient, their individual foot condition/deformities, and fit. The patient and I reviewed the standard new shoe break in period by wearing them for a few hours a day while checking for redness or sores as wear time is increased. The patient verbally confirmed to understanding the information discussed.? * Follow Up:?2 Months * Images: * Sign off status: Completed true * Provider:?Lilian Monte DPM Date:? Generated for Jasper espana/Sowmya/Maryam on:?07/01/2024 07:19 AM EST History and Physical Notes * HPI (History of Present Illness) Category Sub-Category Detail Notes Category Not es Toe pain Nature: tenderness, numbness Location: Right foot, 2nd toe Course: worse Aggravated by: any pressure, shoes Treatments: rest/alter normal da nick activity, change in shoes Painful Nails Pt States Last PCP Visit: Date:: 03/31/2024 Examination Category Sub-Category Detail Notes Category Not es Orthopedic FOOTWEAR: shoe gear proper ties exacerbate patients foot/toe deformity DIGITAL DEFORMITIES: Digital contracture , PIPJ, 2-5 B/L, incompl-reducible with WB, or to push-up test, no over, nor underlapping, Digital contracture, DIPJ, non-reducible with WB or to push-up test T6 General Examination GENERAL APPEARANCE: Reveals a pleasant, alert, well nourished, well-developed, well hydrated individual, who demonstrates proper attention to hygiene/body habitus, and is in no acute distress, Pt serves as own historian for office visit today ORIENTED: person, place, and t irene Vascular DP PULSES (B): 1/4, B/L PT PULSES (B): 0/4, B/L CAPILLARY FILL TIME: 4 secs. per digit Nails NAILS are: Elongated, overg rown, dystrophic, lytic, greater than 3mm thick, discolored and friable with crumbly malodorous subungual debris, with pain on palpation, 1-5 B/L
--- OUTSIDE RECORDS SUMMARY | 2024-07-01 07:19 | XMS_ITS | Data Portability ---
Author Organization [place] - [facility], Allergy Address [address] [place] [id number] Care Team Providers Care Shiftman Name Role Phone HUE STEWART Primary Care Provider Assessment No assessment recorded. Plan of Treatment Reminders Order Date Submit Date Provider Last Modified By Organization Details Last Modified Time Details Appointments Hearing Test 2024 10:00A M Hearing Test Not available Not available Not available Establish ed 30 2024 10:30A M JOEL Rojas MD Not available Not available Not available Lab None recorded. Referral None recorded. Procedures None recorded. Surgeries None recorded. Imaging None recorded. Medication Orders None recorded. Patient TargetsNo targets recorded. Patient InstructionsNo instructions recorded. Reason for Referral None Reported. Results Created Date Observation Date Name Description Value Unit Range Abnormal Flag Note LastModifiedBy Organization Detail LastModifiedTime 04/11/20 24 audio gram No observ ation record ed. BARCODE Not Available 2023 16:54:12 Result Notes None recorded. Problems Name Problem SNOMED Code Status Onset Date Resolution Date Notes Provider Name and Address Organization Details Recorded Time Sensorineural hearing loss of bilateral ears 892829807 Active 2023 JOEL Rojas MD [address], [phone], [facility] 09:33:49 Problem Notes None recorded. Procedures Surgical History Date Name Laterality Status Provider Name and Address Organization Details Recorded Time 04/11/2024 Comp Audio with Tymps (70413 & [id number]) completed CARLOZ GRIFFIN, CRYSTAL [address] [address], [place], [address], [facility] 04/11/2024 09:52:08 Imaging Results Imaging Date Name Status LastModified by [facility] Details LastModified Time 04/11/2024 audiogram completed BARCODE Information no t available 04/11/2024 16:54:12 Procedure Notes None recorded. Medical Equipment None Reported. Allergies No known drug allergies Medications Name Sig Start Date Stop Date Status Note LastModified by Organization Details LastModified Time amoxicillin 500 mg capsule active Not Available Not Available Not Available latanoprost 0.005 % eye drops INSTILL ONE DROP IN BOTH EYES EVERY NIGHT AT BEDTIME. active Not Available Not Available Not Available atorvastatin 40 mg tablet active Not Available Not Available Not Available prednisone 10 mg tablet TAKE 1 TABLET BY MOUTH DIRECTED FOR COPD EXACERBATIO N active Not Available Not Available No t Available doxycycline hyclate 100 mg capsule TAKE 1 CAPSULE BY MOUTH TWICE A DAY active Not Available Not Available No t Available ipratropium 0.5 mg-albuterol 3 mg (2.5 mg base)/3 mL nebulization soln active Not Available Not Available Not Available bumetanide 2 mg tablet TAKE 1 TABLET(2 MG) ONCE PER DAY. PLEASE TAKE 30 MINUTES AFTER TAKING YOUR DAILY METOLAZONE. active Not Available Not Available Not Available warfarin 7.5 mg tablet active Not Available Not Available No t Available prednisone 20 mg tablet TAKE 2 TABS DAILY FOR 5 DAYS, THEN 1 TAB DAILY FOR 5 DAYS active Not Available Not Available N ot Available isosorbide mononitrate ER 30 mg tablet,exten ded release 24 hr active Not Available Not Available Not Available metolazone 5 mg tablet TAKE 1 TABLET BY MOUTH DAILY TAKE 30 MINUTES PRIOR TO BUMEX DOSE active Not Available Not Available N ot Available allopurinol 100 mg tablet active Not Available Not Available Not Available aspirin 81 mg tablet,delay ed release active Not Available Not Available N ot Available isosorbide mononitrate ER 60 mg tablet,exten ded release 24 hr active Not Available Not Available Not Available propranolol 10 mg tablet active Not Available Not Available Not Available potassium chloride ER 20 mEq tablet,exten ded release(part /cryst) TAKE 1 TABLET (20 MEQ) BY MOUTH ONCE DAILY active Not Available Not Available No t Available benzonatate 100 mg capsule TAKE 1 CAPSULE EVERY 8 HOURS NEEDED FOR COUGH active Not Available Not Available No t Available warfarin 5 mg tablet TAKE 1 TABLET BY MOUTH AT BEDTIME ONCE DAILY active Not Available Not Available N ot Available metoprolol tartrate 50 mg tablet active Not Available Not Available No t Available budesonide 0.5 mg/2 mL suspension for nebulization active Not Available Not Available Not Available allopurinol 300 mg tablet active Not Available Not Available Not Available albuterol sulfate HFA 90 mcg/actuatio n aerosol inhaler active Not Available Not Available Not Available carbidopa 25 mg-levodopa 100 mg tablet active Not Available Not Available Not Available formoterol fumarate 20 mcg/2 mL solution for nebulization INHALE ONE VIAL IN NEBULIZER TWICE A DAY active Not Available Not Available Not Available potassium chloride ER 20 mEq tablet,exten ded release TAKE 1 TABLET BY MOUTH EVERY DAY WITH FOOD FOR 30 DAYS active Not Available Not Available No t Available Taltz Autoinjector 80 mg/mL subcutaneous active Not Available Not Available Not Available Humira(CF) Pen 40 mg/0.4 mL subcutaneous kit active Not Available Not Available Not Available Trelegy Ellipta 200 mcg-62.5 mcg-25 mcg powder for inhalation active Not Available Not Available N ot Available Vitals Date Recorded Body height Body mass index (BMI) Body weight Provider Name and Address Organization Details Last Updated DateTime 04/11/2024 185.42 cm 31 kg/m2 630832.21 g Kevin Rich [place] - [facility] 04/11/2024 09:21:01 Social History None recorded. Functional Status None recorded. Mental Status None recorded. Family History Nothing Reported. Medical History Condition Response Heart Problems Y Past Encounters Encounter ID Performer Location Encounter Start Date Encounter Closed Date Diagnosis/Indication Diagnosis SNOMED-CT Code Diagnosis ICD10 Code Diagnosis Note [id number] JOEL ANDERSON MD [facility] on [address] [place] [address] 04/11/2024 08:53:39 04/11/2024 10:11:29 Sensorineural hearing loss of bilateral ears 989880747 H90.3 Rechecked audio today (Pringle and Rinlarry were normal).Au diological evaluation results: 04/11/2024 [facility] ear:{{Norm al* Normal through 2 kHz Mild M oderate Mo derately-s evere Tammy re Profoun d}} {{hearing hearing. s loping to a mild slopi ng to a moderate* sloping to moderately severe slo ping to severe slo ping to profound f lat high frequency low frequency mid frequency cookie bite capellan curve}} {{with sen sorineural hearing loss with condu ctive hearing loss with mixed hearing loss with senso rineural hearing loss above 4K Hz with#}} {{excellen t* good fa ir poor no measurable }} word recognitio n.Left ear:{{Norm al Normal through 2 kHz* Mild Moderate M oderately- severe Sev ere Profou nd}} {{hearing hearing. s loping to a mild slopi ng to a moderate s loping to moderately severe* sl oping to severe slo ping to profound f lat high frequency low frequency mid frequency cookie bite capellan curve}} {{with sen sorineural hearing loss with* cond uctive hearing loss with mixed hearing loss with}} {{excellen t* good fa ir poor no measurable }} word recognitio n. Tympanomet ry:Right Ear:{{Type A* Type As Type Ad Type C Type C, shallow & rounded Ty pe B Type B with large volume Cou ld not maintain a hermetic seal}}Left Ear:{{Type A* Type As Type Ad Type C Type C, shallow & rounded Ty pe B Type B with large volume Cou ld not maintain a hermetic seal}} Repeat audio today showed asymmetric hearing loss worse . I offered an MRI to exclude retrocochl ear pathology but he declined in favor of yearly surveillan ce audiograms . If his asymmetry widens when he returns in 1 year we will plan an MRI. I also asked him to call with any sudden hearing changes. Health Concerns Section Related Observation LastModified by Organization Detai ls LastModified Time None Recorded Concern Status LastModified by Organization Details LastModified Time None Recorded Advance Directives Directive None Recorded Payers Encounter Date Sequence Insurance Name Policy Number Policy Vivas Covered Member ID Vivas Member ID Guarantor Name 04/11/2024 1 [facility] (MEDICARE REPLACEMENT/A DVANTAGE - PPO) [id number] Eddie Styles [id number] Eddie Styles Notes Date Note Type Note Provider Name and Address Organization Details Recorded Time 04/11/2024 text/html He is not aware of hearing loss. He has an audio 10/2023 which showed HF SNHL AU, worse . A conductive component was noted on the right as well. 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 Denies tinnitus. He feels he gets by well despite this hearing loss. JOEL ANDERSON MD [address] [place] [address], [place], [address], [facility] - [facility] 04/11/2024 10:10:32
[2024-07-01 07:34] LABS: MANUAL DIFF FLAG NO
[2024-07-01 07:44] LABS: Basophils Absolute Auto 0.1 X10*3/uL (0.0-0.2); Basophils Percent Auto 1.2 % (0-2); Eosinophils Absolute Auto 0.2 X10*3/uL (0.0-0.4); Hematocrit 39.1 % (42.0-52.0); Hemoglobin 13.4 g/dl (14.0-18.0); Imm Gran Abs Auto 0.04 X10*3/uL (0.00-0.03); Imm Gran Pct Auto 0.6 % (0.0-0.4); Lymphocytes Absolute Auto 1.6 X10*3/uL (1.2-4.9); Lymphocytes Percent Auto 22.5 % (20-40); Mean Corpuscular HGB Conc 34.3 g/dl (31.0-36.0); Mean Corpuscular Hemoglobin 32.8 pg (27.0-33.0); Mean Corpuscular Volume 95.6 fL (80.0-98.0); Mean Platelet Volume 9.6 fL (9.4-12.4); Monocytes Absolute Auto 0.7 X10*3/uL (0.1-1.2); Neutrophils Absolute Auto 4.3 x10*3/uL (2.0-8.3); Neutrophils Percent Auto 62.7 % (45-73); Platelet Count 286 X10*3/uL (160-400); Red Blood Count 4.09 X10*6/uL (4.60-5.80); Red Cell Distribution Width 14.7 % (11.0-16.0); White Blood Count 6.9 X10*3/uL (4.8-10.8)
[2024-07-01 07:54] LABS: Estimated Average Glucose 111 mg/dL; Hemoglobin A1C 128.0305 umol/L; Hemoglobin A1c % 5.5 % (<6.0); Total Hemoglobin (HGBA1C) 3521.6421 umol/L
[2024-07-01 08:18] LABS: Alanine Aminotransferase 14 U/L (0-40); Albumin Level 3.8 g/dL (3.5-5.0); Alkaline Phosphatase 91 U/L (39-117); Anion Gap 13 (12-20); Aspartate Amino Transferase 31 U/L (5-37); B Type Natriuretic Peptide 310 pg/mL (<100); Bilirubin Total 2.2 mg/dL (0.0-1.0); Blood Urea Nitrogen 16 mg/dL (9-16); C Reactive Protein 2.19 mg/dL (< or = 0.50); Calcium 9.5 mg/dL (8.4-10.2); Carbon Dioxide 25 mmol/L (22-29); Chloride 105 mmol/L (96-108); Cholesterol 126 mg/dL (<200); Estimated Glomerular Filt Rate > 60; Glucose Random 122 mg/dL (60-115); HDL Cholesterol 41 mg/dL (>40); LDL Cholesterol Calculated 66 mg/dL (<100); Potassium 3.7 mmol/L (3.3-5.1); Sodium 139 mmol/L (135-145); Total Protein 7.6 g/dL (6.5-8.0); Triglycerides 96 mg/dL (<150); Uric Acid 4.7 mg/dL (3.4-7.0)
[2024-07-01 08:20] LABS: Erythrocyte Sedimentation Rate 60 MM/HR (0-15)
== END 2024-07-01 07:17 | disposition home or self-care (01) ==
LOC: HO.LAB 07:16
PROVIDERS: Student in an Organized Health Care Education/Training Program; PCP Internal Medicine; Visit Provider Internal Medicine
DX: L40.50 Arthropathic psoriasis, unspecified (principal); I50.32 Chronic diastolic (congestive) heart failure; E78.00 Pure hypercholesterolemia, unspecified; M1A.09X0 Idiopathic chronic gout, multiple sites, without tophus (tophi); Z13.1 Encounter for screening for diabetes mellitus
CPT/HCPCS: 36415; 80053; 80061; 83036; 83880; 84550; 85025; 85652; 86140

== ENCOUNTER → 2024-07-05 09:50 | Outpatient (BNVA) | payer MEDICARE, SELFPAY | PROVIDERS: PCP Internal Medicine; Visit Provider Internal Medicine ==

== ENCOUNTER 2024-07-06 13:28 | Outpatient (AMB) | payer MEDICARE, SELFPAY ==
[2024-07-06 13:30] VITALS: BP 112/68; PULSE 86; O2SAT 97; BMI 30.2
--- NOTE | 2024-07-06 13:30 | A.OFFPC_ITS ---
Vital Signs 07/06/24 13:30 Height 6 ft 1 in Weight 229 lb BMI 30.2 BP 112/68 Blood Pressure Location Lt brachial Position Sitting Pulse 86 Pulse Source Pulse Oximeter Pulse Oximetry (%) 97 Oxygen Delivery Method Room Air Intake Visit Reasons: 3 MONTH FOLLOW UP Allergies rosuvastatin Allergy (Severe, Verified 07/06/24 13:31) muscle aches Tobacco use date assessed: 07/06/24 Fall risk assessment: No Falls in past year Last assessed Fall Risk: 07/06/24 Dental Screening Dental Screen Date: 07/06/24 Did you have a dental visit in the last 12 months?: Yes Did you have a dental problem in the last 6 months where you did not have access to dental care?: No Was dental information given to patient?: Patient has dentist [facility] Medical History Hearing deficit Chronic restrictive lung disease Pulmonary nodules Syncope Essential tremor Hypercholesterolemia Hypertension Coronary artery disease COPD (chronic obstructive pulmonary disease) Aortic aneurysm Pulmonary fibrosis Surgical History S/P placement of cardiac pacemaker Aortic valve replaced History of aneurysm History of heart artery stent History of open reduction and internal fixation (ORIF) procedure Family History Mother No problems noted. Father No problems noted. Social History (Reviewed 04/04/24 @ 14:31 by Latisha Arias [facility]) Housing: House Alcohol intake: current Alcohol intake frequency: a few times a week Alcohol type: beer Comment: 2x a week 1-2 drinks Patient Tobacco Use Status: Former Tobacco user Tobacco use type: Cigarette Years Smoked: quit 1996 e-Cigarette/Vaping Use: Never Used Second Hand Smoke Exposure: No service: No Current occupational status: employed Cognitive needs: No Hearing needs: No Vision needs: Yes Questionnaire PHQ-9 Over the last 2 weeks, how often have you been bothered by any of the following problems? 1. Little interest or pleasure in doing things: not at all 2. Feeling down, depressed, or hopeless: not at all 3. Trouble falling or staying asleep, or sleeping too much: not at all 4. Feeling tired or having little energy: not at all 5. Poor appetite or overeating: not at all 6. Feeling bad about yourself - or that you are a failure or have let yourself or your family down: not at all 7. Trouble concentrating on things, such as reading the newspaper or watching television: not at all 8. Moving or speaking so slowly that other people could have noticed. Or the opposite - being so fidgety or restless that you have been moving around a lot more than usual: not at all 9. Thoughts that you would be better off or of hurting yourself in some way: not at all Total score: 0 Depression Screening Interpretation: Negative Depression Screening Done: Yes 77937 - PHQ-9 Billing: Yes Source: Developed by Drs. Phillip Douglas, Terra Guy, Carl Denney and colleagues, with an educational leslye from [employer]. Thrive Questionnaire Date Thrive assessed: 07/06/24 I am a: Patient What is your living situation today?: I have a steady place to live Within the past 12 months, did the food you bought not last and you didn't have the money to get more?: Never true Within the past 12 months, did you worry whether your food would run out before you got money to buy more?: Never true Do you have trouble paying for medicines?: No Do you have trouble getting transportation to medical appointments?: No Do you have trouble paying your heating and electricity bill?: No Do you have trouble taking care of your child, family member or friend?: No Do you have trouble with day-to-day activities such as bathing, preparing meals, shopping, managing finances, etc.?: No Are you currently unemployed and looking for a job?: No Are you interested in more education?: No Please select the resources that you would like help with: None Currently or been in a relationship where the following occur: No concerns reported THRIVE Score: 0 AUDIT C Alcohol Use Questionnaire (AUDIT-C) 2. How many drinks containing alcohol do you have on a typical day when you are drinking?: 1 or 2 3. How often do you have six or more drinks on one occasion?: Never Total Score: 0 PARESH-7 AMB Questionnaire PARESH-7 Date PARESH - 7 assessed: 07/06/24 Feeling nervous, anxious, or on edge: 0 = Not at all Not being able to stop or control worryin = Not at all Worrying too much about different things: 0 = Not at all Trouble relaxin = Not at all Being so restless that it is hard to sit still: 0 = Not at all Becoming easily annoyed or irritable: 0 = Not at all Feeling afraid as if something awful might happen: 0 = Not at all Total PARESH-7 score (0-4 normal; 5-9 mild; 10-14 moderate; 15-21 severe): 0 Source: Developed by Drs. Phillip Douglas, Terra Guy, Carl Denney and colleagues, with an educational leslye from [employer]. PARESH-7 Assessment Billing PARESH-7 Assessment Tool: PARESH-7 Assessment 78125 Physical exam (Primary Care) Vital Signs: Last Vital Signs Pulse 86 07/06/24 13:30 BP 112/68 07/06/24 13:30 Pulse Ox 97 07/06/24 13:30 Oxygen Delivery Method Room Air 07/06/24 13:30 BMI result Body Mass Index 30.2 Tobacco/Smoking Status: Tobacco use Status Tobacco use date assessed 07/06/24 07/06/24 13:35 Patient Tobacco Use Status Former Tobacco user 07/06/24 13:35 Tobacco use type Cigarette 07/06/24 13:35 e-Cigarette/Vaping Use Never Used 07/06/24 13:35 PHQ-9: PHQ-9 Score PHQ-9: Total score 0 07/06/24 13:50 Depression Screening Interpretation: Negative Thrive Assessment: Date of Thrive Assessment Date Thrive assessed 07/06/24 07/06/24 13:35 Currently or been in a relationship where the following occur: No concerns reported Const General: alert; No acute distress Eyes Conjunctivae: conjunctivae normal Resp Auscultation: clear to auscultation bilaterally Cardio Rate: regular rate Rhythm: regular rhythm GI Inspection: Yes normal to inspection Extrem General: Yes normal to inspection and No edema Coding Level of Care Code Est Pt Level 4 (65702) Complex EM visit Add On G2211 Diagnoses Obstructive sleep apnea G47.33 Permanent atrial fibrillation I48.21 Atrial fibrillation type: permanent Chronic heart failure with preserved ejection fraction I50.32 Heart failure chronicity: chronic Obesity (BMI 30-39.9) E66.9 Aortic valve replaced Z95.2 Essential hypertension I10 Hypertension type: essential hypertension Hypercholesterolemia E78.00 Coronary artery disease involving [place] coronary artery of [place] heart without angina pectoris I25.10 Associated angina: without angina Coronary Disease-Associated Artery/Lesion type: [place] artery [place] vs. transplanted heart: [place] heart Mixed simple and mucopurulent chronic bronchitis J41.8 COPD type: chronic bronchitis Chronic bronchitis type: mixed simple and mucopurulent Additional Codes PARESH-7 Assessment Billing - PARESH-7 Assessment Tool: PARESH-7 Assessment 88194 ([id number]) PHQ-9 - 06416 - PHQ-9 Billing: Yes ([id number]) Assessment & Plan Assessment & Plan (1) Obstructive sleep apnea: Comment: Sleep study done in 05/16/2024 revealing moderately severe obstructive sleep apnea with an AHI of 17 patient was advised CPAP therapy with auto PAP mode pressure setting 6-20 cm Code(s): G47.33 - Obstructive sleep apnea (adult) (pediatric) Category: Medical Plan: Discussed about sleep apnea and the treatment for CPAP. Using the CPAP > 4 hours a night and benefits from this. (2) Atrial fibrillation: Comment: PAtient mentioned Code(s): I48.91 - Unspecified atrial fibrillation Category: Medical Qualifiers: Atrial fibrillation type: permanent Qualified Code(s): I48.21 - Permanent atrial fibrillation Plan: Continue with anticoagulation (3) (HFpEF) heart failure with preserved ejection fraction: Code(s): I50.30 - Unspecified diastolic (congestive) heart failure Category: Medical Qualifiers: Heart failure chronicity: chronic Qualified Code(s): I50.32 - Chronic diastolic (congestive) heart failure Plan: Weigh daily patient is on bumetanide 2 mg once a day (4) Obesity (BMI 30-39.9): Code(s): E66.9 - Obesity, unspecified Category: Medical Plan: Diet and exercise (5) Aortic valve replaced: Comment: Bicuspid [address] mechanical valve Code(s): Z95.2 - Presence of prosthetic heart valve Category: Surgical Plan: Continue with anticoagulation with Coumadin (6) Hypertension: Code(s): I10 - Essential (primary) hypertension Category: Medical Qualifiers: Hypertension type: essential hypertension Qualified Code(s): I10 - Essential (primary) hypertension Plan: Continue with blood pressure medication. Decrease salt intake and exercise on propranolol 10 mg twice a day metoprolol 75 mg twice a day isosorbide mononitrate 90 mg once a day (7) Hypercholesterolemia: Code(s): E78.00 - Pure hypercholesterolemia, unspecified Category: Medical Plan: Avoid fried foods, chicken skin, eggs, butter margarine, pastries and meat. Be it pork or beef they have a lot of cholesterol on atorvastatin 40 mg once a day (8) Coronary artery disease: Comment: RCA stenosis nuclear perfusion April, July 2019 catheterization no severe obstructive coronary artery disease Code(s): I25.10 - Atherosclerotic heart disease of [place] coronary artery without angina pectoris Category: Medical Qualifiers: Associated angina: without angina Coronary Disease-Associated Artery/Lesion type: [place] artery [place] vs. transplanted heart: [place] heart Qualified Code(s): I25.10 - Atherosclerotic heart disease of [place] coronary artery without angina pectoris Plan: Control the cholesterol, weight, blood pressure, diabetes continue with isosorbi de mononitrate 90 mg once a day on aspirin (9) COPD (chronic obstructive pulmonary disease): Code(s): J44.9 - Chronic obstructive pulmonary disease, unspecified Category: Medical Qualifiers: COPD type: chronic bronchitis Chronic bronchitis type: mixed simple and mucopurulent Qualified Code(s): J41.8 - Mixed simple and mucopurulent chronic bronchitis Plan: Continue with the albuterol inhaler Combivent Trelegy and Daliresp Plan History of Present Illness The patient is a 68-year-old male presenting for a follow-up visit for chronic management of COPD, sleep apnea, and cardiovascular conditions, including coronary artery disease and atrial fibrillation. Recently, he experienced a 14- pound weight loss, which is managed by the current treatment plan. The patient operates under therapy schemes that include Trelegy, Daliresp, and others, leading to adjustments due to side effects such as nausea. His recent colon screening was conducted in May 2022. The patient has adapted to the CPAP machine for sleep apnea management, reporting discouragement at first but acknowledging its necessity due to links with atrial fibrillation episodes. Pulmonary rehabilitation continues to be a cornerstone of his COPD management strategy. Health Maintenance - CPAP usage for obstructive sleep apnea management - Pulmonary rehabilitation for COPD - Daily weight monitoring to assess fluid retention accurately - Recent colonoscopy screening in May 2022 with continued surveillance - Regular blood pressure monitoring managed with propranolol and metoprolol - LDL cholesterol management with Atorvastatin 40 mg daily for cardiovascular risk reduction - Advise the patient on Tdap vaccination considerations and insurance coverage difficulties. Social History - Patient adheres to a structured exercise regimen contributing to weight loss. - Actively managing nutritional intake to control weight. Review of Systems - Respiratory: Reports a persistent cough, potentially linked with lying down. - General: Denies difficulty with daily activity execution. - Sleep: Reports usage of CPAP machine with noted improvement in sleep quality. Physical Exam Results - Labs: Hemoglobin 13.4 (mild anemia), Blood sugar 122 mg/dL, A1c within normal range, LDL 66 mg/dL, BNP 310 mcg/dL - Sleep study: Moderately severe obstructive sleep apnea, AHI of 17 Plan The continued management of the patient's chronic conditions includes ensuring compliance with CPAP therapy, pulmonary rehabilitation, and ongoing medication usage for COPD management. Adjustments in the COPD-related medication were discussed to mitigate side effects. Close observation of cardiovascular status is crucial, with a focus on controlling hypertension, lipid levels, and managing heart failure symptoms through pharmacological treatments including propranolol, metoprolol, isosorbide mononitrate, and Coumadin for anticoagulation. Regular INR monitoring is crucial for the prevention of thromboembolic events. Continued weight monitoring and dietary modifications are stipulated to prevent e xacerbation of heart failure through diligent diuretic use. We discussed Tdap vaccination, although confirmed current insurance may not cover it. The patient will adapt health maintenance practices, including careful monitoring of symptoms and adherence to prescribed therapies, with follow-up scheduled as necessary. Patient was informed and verbally consented to the use of an ambient scribe for clinic note documentation during this visit. Discussion Notes We thoroughly reviewed the patient's need for ongoing CPAP therapy to manage the obstructive sleep apnea and its role in controlling atrial fibrillation. We discussed the benefits of using Trelegy, Daliresp, and Duoneb in managing COPD symptoms. We reviewed cardiovascular medication usage and the importance of regular INR monitoring with anticoagulation management. We discussed potential adjustments in roflumilast dosing due to side effects and outlined the importance of regular pulmonary rehabilitation sessions. Furthermore, we d iscussed the Tdap vaccine's indication and coverage issues, highlighting the challenge for patients aged 65 and above. These discussions informed the consensual strategy crafted for continuous health maintenance. Patient Instructions - Use the CPAP machine nightly and monitor its effectiveness. - Continue prescribed medications, including Trelegy, Duoneb, and anticoagulants. - Monitor weight daily, focusing on trends indicating congestion. - Maintain a heart-healthy diet and exercise regularly to manage weight. - Follow up for INR monitoring to manage your anticoagulation therapy effectively. - Be cautious and practice preventive care measures due to higher risk for communicable diseases despite vaccination. - Revisit Tdap vaccination coverage with your insurance provider if needed. - Schedule follow-up appointments to monitor your condition and adjust treatment as necessary.
--- OUTSIDE RECORDS SUMMARY | 2024-07-06 16:32 | XMS_ITS ---
Author Organization [facility] Sus[facility] benavidez Billing Info Address [address] [place] [address] Care Team Providers Care Intranet Specialist Name Role Phone BOGDAN FERGUSON Primary Care Provider [phone] SUNNYERICA Unavailable [phone] Allergies No Known Allergies REASON FOR VISIT [...] 06/24/2023 Encounters Encounter Location Date Provider Diagnosis [place] [address] [id number] 06/24/2023 ERICA CORREA Hypokalemia E87.6 ; Acute [...] Test Test Name Order Date BASIC METABOLIC PANEL([facility]CHEM[facility]) 2023 Next Appt Details Follow Up: 4 Weeks, Reason: f/up HF clinic Progress Notes * MARILIN Eddie SolaresDOB: [birth year] (67 yo M)Acc No.[id number]:06/24/2023 PROGRESS NOTE Patient:?Eddie GASTON Provider:?ERICA CORREA MD :1955???Age:67 Y???Sex:Male Yvon e:06/24/2023 ?N#:[id number] Address:[address] [place] [address] [facility] Pcp:BOGDAN FERGUSON Subjective: * Chief Complaints: * [...] or a close contact traveled outside the [facility] and you are now ill??No [...] follow up. He was initially admitted to [facility] on 05/12/2023 for for a COPD exacerbation [...] or syncope. He plans to remain in [place] until 08/10/23 when he returns home to [place]. * ROS:?CARDIOLOGY:?Constitutional:?Negative for: fever, chills or headaches..?Cardiovascular:?Negative [...] %:94. * ???Past Orders: ???Lab:BASIC METABOLIC PANEL ([facility]) (Order Date - 06/17/2023) (Collection Date & [...] CORREA MD Date:?06/11 Generated for Jasper espana/Sowmya/eTransmitting on:?07/06/2024 04:32 PM EST History and Physical Notes * HPI (History of Present Illness) Category Sub-Category Detail Notes Category Not es Patient History Mr. Gaston presents today for follow up. He was initially admitted to [facility] on 05/12/2023 for for a COPD exacerbation [...] or syncope. He plans to remain in [place] until 08/10/23 when he returns home to [place]. First Point of Contact Screening Do any [...]
--- OUTSIDE RECORDS SUMMARY | 2024-07-06 16:33 | XMS_ITS ---
Author Organization [facility]av[facility] Billing Info Address [address] [place] [address] Care Team Providers Care Anodizing Line Operator Name Role Phone BOGDAN FERGUSON Primary Care Provider [phone] NICOLAS JEEVAN Prashant [phone] Allergies No Known Allergies REASON FOR VISIT [...] Problem Status W/U Status Risk Notes Problem [id number] Obesity (BMI 30-39.9) (E66.9) Active confirmed Vital Signs Height 73 in 07/22/2023 Weight 229.8 lbs 07/22/2023 BMI 30.32 kg/m2 07/22/2023 Blood pressure systolic 113 mm Hg 07/22/19 Blood pressure diastolic 76 mm Hg 024 Heart Rate 72 /min 07/22/2023 Oximetry 98 07/22/2023 Encounters Encounter Location Date [id number] [address] [id number] 07/22/2023 JEEVAN VALENZUELA Hypokalemia E87.6 ; Acute [...] normally with limited visualization. 07/22/2023 Other Primary chemist biological Dr. [facility]. [facility]. Plan Of Treatment Treatment Notes Assessment [...] Name Order Date Basic Metabolic Panel (8) ([id number] ) 07/22/2023 Next Appt Details Follow Up: PRN, Reason: Progress Notes * Eddie GASTON BeckDOB: [birth year] (68 yo M)Acc No.[id number]:07/22/2023 PROGRESS NOTE Patient:?Eddie GASTON Appointment Provider:?JEEVAN VALENZUELA PA-C :1955???Age:68 Y???Sex:Male Sup ervising Provider:ERICA CORREA MD Date:07/22/2023 ?N#:[id number] Address:[address] [place], [place] [address]andrés CardozaAgusto, [facility] Pcp:BOGDAN FERGUSON Subjective: * Chief Complaints: * [...] close contact traveled outside the [facility] and you are now ill??No [...] follow up. He was initially admitted to [facility] on 05/12/2023 for for a COPD [...] or syncope. He plans to remain in [place] until 08/10/23 when he returns home to [place]. 07/22/23: RTC today after 4 weeks on therapy; he has been doing great.? No signficiant peripheral edema. No sob or orthpnea. no return visits to the ED. No changes in his weight.? He plans to return home to [place] in 2 weeks. * ROS:?CARDIOLOGY:?Constitutional:?Negative for: fever, [...] * Treatment: 2.?Hypokalemia?LAB: Basic Metabolic Panel (8) ([id number]) (Ordered for 07/22/2023) Notes: patients potassium was [...] with limited visualization.?? 4.?Others? Clinical Notes: [facility].?? * Procedure Codes:? * Preventive Medicine:? [...] 10:04:16* Electronically co-[place], [id number] on 07/24/2023 at 10:04 AM EDT Sign off status: Completed true * Appointment Provider:?MARIANNE VALENZUELA PA-C Date:?07/22/2023 Generated for Printing/Faxing/eTransmitting on:?07/06/2024 04:33 PM EST History and Physical Notes * HPI (History of Present Illness) Category Sub-Category Detail Notes Category Not es Patient History Mr. Gaston presents today for follow up. He was initially admitted to [facility] on 05/12/2023 for for a COPD [...] or syncope. He plans to remain in [place] until 08/10/23 when he returns home to [place]. 07/22/23: RTC today after 4 weeks on therapy; he has been doing great. No signficiant peripheral edema. No sob or orthpnea. no return visits to the ED. No changes in his weight. He plans to return home to [place] in 2 weeks. First Point of Contact Screening Do any of the following apply to you? New rash or open sores: No Fever and/or chills in the past 7 days: No Cough: No Muscle or body aches (other than from an injury): No Sore throat: No In the past 3 weeks, have yo u or a close contact traveled outside the [facility] and you are now ill? : No OFFICE USE (If [place] is not in place, provide patients age [...]
--- OUTSIDE RECORDS SUMMARY | 2024-07-06 16:33 | XMS_ITS ---
Author Organization [facility] Address [address] [facility] [address] Care Team Providers Care Drafting Detailer Name Role Phone DiogenesPeytonnella Primary Care Provider Lilian Augustin Unavailable [phone] Allergies No Known Allergies REASON FOR VISIT At Risk Footcare, Painful Nail(s) aggravated by shoes and causing difficulty standing/walking. Medications Medication SIG (Take, Route, Frequency, Duration) Notes Start Date End Date Status Otezla 30 MG (Prior Auth#:[id number]) Oral for 90 Not-Taking dilTIAZem HCl ER Beads 180 MG 1 capsule Orally Once a day for 30 day(s) Not-Taking Rosuvastatin Calcium 20 MG (Prior Auth#:[id number]) Oral for 90 Not-Taking Humira Not-Taking Medrol 4 MG as directed Orally 02/22/2021 Not-Taking Spiriva Respimat 2.5 MCG/ACT (Prior Auth#:[id number]) Inhalation for 30 Not-Taking Advair Diskus 250-50 MCG/DOSE (Prior Auth#:[id number]) Inhalation for 90 Not-Taking Isosorbide Mononitrate ER 30 MG (Prior Auth#:[id number]) Oral for 90 Active Magnesium Oxide 400 (241.3 Mg) MG (Prior Auth#:[id number]) Oral for 90 Active Albuterol Sulfate HFA 108 (90 Base) MCG/ACT (Prior Auth#:[id number]) Inhalation for 30 Active Nebulizer Active Warfarin Sodium 7.5 MG (Prior Auth#:[id number]) Oral for 90 Active Propranolol HCl 10 MG (Prior Auth#:[id number]) Oral for 90 Active Metoprolol Tartrate 75 MG 1 tablet with food Orally Twice a day for 30 day(s) Active Meloxicam 7.5 MG (Prior Auth#:[id number]) Oral for 45 Active Taltz 40 MG/0.5ML 1 mL Subcutaneous Active Atorvastatin Calcium 40 MG (Prior Auth#:[id number]) Oral for 90 Active Aspirin Low Dose 81 MG (Prior Auth#:[id number]) Oral for 90 Active Furosemide 20 MG as directed Orally O nce a day Not-Taking Carbidopa-Levodopa 25-100 MG (Prior Auth#:[id number]) Oral for 90 Active Bumetanide 2 MG [...] W/U Status Risk Notes Problem Atherosclerosis of koi artery of both lower extremities, with unspecified presence of clinical manifestation (I70.203) Active confirmed Q7(A), Q8(2B), Q9(1B,2C ) Problem [id number] Peripheral vascu lar disease (I73.9) Active confirmed Vital Signs Height 6ft1in in 06/17/2024 Weight 230 lbs 06/17/2024 BMI 30.34 kg/m2 06/17/2024 Blood pressure systolic 120 mm Hg 06/17/19 25 Blood pressure diastolic 70 mm Hg 025 Encounters Encounter Location Date Provider Diagnosis [facility] [place] [address] [place] [address] 06/17/2024 Lilian Monte Atherosclerosis of koi artery of both lower extremities, with unspecified presence of clinical manifestation I70.203 ; Peripheral vascular disease I73.9 ; Tinea unguium B35.1 ; Pain in right toe(s) M79.674 and Pain in left toe(s) M79.675 Assessments Encounter Date Diagnosis (ICD Code) Assessment Notes Treatment Notes Treatment Clinical Notes Section Notes 06/17/2024 Atherosclerosis of koi artery of both lower extremities, with unspecified presence of clinical manifestation (ICD-10 - I70.203) Q7(A), Q8(2B), Q9(1B,2C) 06/17/2024 Peripheral vascular disease (ICD-10 - I73.9) 06/17/2024 Tinea unguium (ICD-10 - B35.1) 06/17/2024 Pain in right toe(s) (ICD-10 - M79.674) 06/17/2024 Pain in left toe(s) (ICD-10 - M79.675) Plan Of Treatment Next Appt Details Follow Up: 3 Months, Reason: Provider Name:Lilian ferris, 09/09/2024 10:00:00 AM, [address] [place] [address], [id number], Procedure Notes * Category Sub-Category Detail Notes [...] use of a nail nipper and/or dremel-type universal grinder operator, to a more viable healthy nail [...] to maintain effectiveness in symptomatic relief - 65302 Keratoma Treatment Parring or Cutting o f [...] instrumentation by the physician of record - 68407 Progress Notes * Eddie GASTONDOB: [birth year] (68 yo M)Acc No.[id number]:06/17/2024 Progress Note Patient:?Eddie GASTON Provider:?Lilian Monte DPM :1955???Age:68 Y???Sex:Male Yvon e:06/17/2024 Address:[address] [place] [address] [facility] Pcp:Joey Shetty Subjective: * Chief Complaints: * [...] ve 08/1996colonoscopy 05/31/21 * Hospitalization/Major Diagno stic Procedure:?[facility]- Having trouble breathing and retaining fluids - atypical pneumonia 06/03 * Family History:?Mother: karyn hernandez.?Father: .?Spouse: alive.? * Social History:?Tobacco Use:?Tobacco use other than smoking?Are you an other tobacco user??No ?Tobacco Control (Standard)?Tobacco use:?Nonsmoker ???Miscellaneous:?Caffeine: yes, frequency:, 1-2 cups per day. ?Children: yes, 1. ?Exercise: yes, walking, housework. ?Marital status: . ?Occupation: [employer].. * Medications:?TakingBumetanid e 2 MG Tablet 1 tablet Orally Once a day Trelegy Ellipta Taltz 40 MG/0.5ML Solution Prefilled Syringe 1 mL Subcutaneous Aspirin Low Dose 81 MG Tablet Delayed Release (Prior Auth#:[id number]) Oral Atorvastatin Calcium 40 MG Tablet (Prior Auth#:[id number]) Oral Carbidopa-Levodopa 25-100 MG Tablet (Prior Auth#:[id number]) Oral Meloxicam 7.5 MG Tablet (Prior Auth#:[id number]) Oral Metoprolol Tartrate 75 MG Tablet 1 tablet with food Orally Twice a day Nebulizer Propranolol HCl 10 MG Tablet (Prior Auth#:[id number]) Oral Warfarin Sodium 7.5 MG Tablet (Prior Auth#:[id number]) Oral Magnesium Oxide 400 (241.3 Mg) MG Tablet (Prior Auth#:[id number]) Oral Isosorbide Mononitrate ER 30 MG Tablet Extended Release 24 Hour (Prior Auth#:[id number]) Oral Albuterol Sulfate HFA 108 (90 Base) MCG/ACT Aerosol Solution (Prior Auth#:[id number]) Inhalation Taking Bumetanide 2 MG Tablet 1 tablet Orally Once a day Taking Trelegy Ellipta Taking Taltz 40 MG/0.5ML Solution Prefilled Syringe 1 mL Subcutaneous Taking Aspirin Low Dose 81 MG Tablet Delayed Release (Prior Auth#:[id number]) Oral Taking Atorvastatin Calcium 40 MG Tablet (Prior Auth#:[id number]) Oral Taking Carbidopa-Levodopa 25-100 MG Tablet (Prior Auth#:[id number]) Oral Taking Meloxicam 7.5 MG Tablet (Prior Auth#:[id number]) Oral Taking Metoprolol Tartrate 75 MG Tablet 1 tablet with food Orally Twice a day Taking Nebulizer Taking Propranolol HCl 10 MG Tablet (Prior Auth#:[id number]) Oral Taking Warfarin Sodium 7.5 MG Tablet (Prior Auth#:[id number]) Oral Taking Magnesium Oxide 400 (241.3 Mg) MG Tablet (Prior Auth#:[id number]) Oral Taking Isosorbide Mononitrate ER 30 MG Tablet Extended Release 24 Hour (Prior Auth#:[id number]) Oral Taking Albuterol Sulfate HFA 108 (90 Base) MCG/ACT Aerosol Solution (Prior Auth#:[id number]) Inhalation Not-Taking/PRNFurosemide 20 MG Tablet as directed Orally Once a day Advair Diskus 250-50 MCG/DOSE Aerosol Powder Breath Activated (Prior Auth#:[id number]) Inhalation Spiriva Respimat 2.5 MCG/ACT Aerosol Solution (Prior Auth#:[id number]) Inhalation Humira Medrol 4 MG Tablet Therapy Pack as directed Orally dilTIAZem HCl ER Beads 180 MG Capsule Extended Release 24 Hour 1 capsule Orally Once a day Otezla 30 MG Tablet (Prior Auth#:[id number]) Oral Rosuvastatin Calcium 20 MG Tablet (Prior Auth#:[id number]) Oral Medication List reviewed and reconciled with the patientNot-Taking/PRN Furosemide 20 MG Tablet as directed Orally Once a day Not-Taking/PRN Advair Diskus 250-50 MCG/DOSE Aerosol Powder Breath Activated (Prior Auth#:[id number]) Inhalation Not-Taking/PRN Spiriva Respimat 2.5 MCG/ACT Aerosol Solution (Prior Auth#:[id number]) Inhalation Not-Taking/PRN Humira Not- Taking/PRN Medrol 4 MG Tablet Therapy Pack as directed Orally Not-Taking/PRN dilTIAZem HCl ER Beads 180 MG Capsule Extended Release 24 Hour 1 capsule Orally Once a day Not-Taking/PRN Otezla 30 MG Tablet (Prior Auth#:[id number]) Oral Not- Taking/PRN Rosuvastatin Calcium 20 MG Tablet (Prior Auth#:[id number]) Oral Medication List reviewed and reconciled with [...] vascular disea se - I73.9 (Primary)???2.?Atherosclerosis of koi artery of both lower extremities, with unspecified [...] use of a nail nipper and/or dremel-type universal grinder operator, to a more viable healthy nail [...] to maintain effectiveness in symptomatic relief - 32503.?Keratoma Treatment:?Parring or Cutting of Benign Hyperkeratotic Lesion(s)?(-56) [...] instrumentation by the physician of record - 83610.? * Procedure Codes:?17635 DEBRI DE NAIL, 6 OR MORE, Modifiers: XS 98734 TRIM SKIN LESIONS, 2 TO 4, Modifiers: [...] Provider:?Lilian Monte DPM Date:?11/2024 Generated for Jasper espana/Sowmya/Darrylitting on:?07/06/2024 04:33 PM EST History and Physical [...]
--- OUTSIDE RECORDS SUMMARY | 2024-07-06 16:33 | XMS_ITS | Clinical Summary ---
Author Organization [address] [facility] Address [address] [place] [address] Phone Care Team Providers Care Laser Set Up Operator Name Role Phone Joey Shetty MD Primary Care Provider [phone] Allergies No known active allergies Medications isosorbide mononitrate (IMDUR) 60 mg 24 hr tablet Take 1 tablet (60 mg total) by mouth 1 (one) time each day in the morning. 12/06/19 23 Active isosorbide mononitrate (IMDUR) 30 mg 24 hr tablet TAKE 1 TABLET BY MOUTH IN THE EVENING 12/06/19 23 Active adalimumab (Humira,CF, Pen) 40 mg/0.4 mL pen Inject into the skin. 1 shot every 2 weeks Active furosemide (LASIX) 20 mg tablet TAKE 1 TABLET BY MOUTH EVERY OTHER DAY (EVERY 48 HOURS) ALTERNATING WITH 2 TABLETS EVERY OTHER DAY (EVERY 48 HOURS) 11/19/19 23 Active BUDESONIDE INHL Inhale into the lungs 2 times daily. Active ALBUTEROL SULFATE INHL Inhale into the lungs 2 times daily. Active meloxicam (MOBIC) 15 mg tablet Take 15 mg by mouth daily. Active cholecalciferol (VITAMIN D-3) 25 mcg (1,000 unit) capsule Take by mouth. A ctive aspirin 81 mg chewable tablet Take 81 mg by mouth daily. Active atorvastatin (LIPITOR) 40 mg tablet Take 40 mg by mouth daily. Active carbidopa-levod opa (SINEMET) 25-100 mg per tablet Take 2 Tablets by mouth 3 times daily. 1.5 tablet TID Active warfarin (COUMADIN) 7.5 mg tablet Take 7.5 mg by mouth daily. [facility] managing coumadin Active dilTIAZem CD (CARDIZEM CD) 180 mg 24 hr capsule Take 180 mg by mouth daily. Active propranoloL (INDERAL) 10 mg tablet Take 10 mg by mouth 2 times daily. Active metoprolol tartrate (LOPRESSOR) 50 mg tablet TAKE 1 AND 1/2 TABLETS BY MOUTH DAILY AND 2 TABLETS BY MOUTH DAILY BEFORE DINNER 315 tablet 3 07/05/19 25 Active metoprolol tartrate (LOPRESSOR) 50 mg tablet TAKE 1 AND 1/2 TABLETS BY MOUTH DAILY AND 2 TABLETS BY MOUTH DAILY BEFORE DINNER 03/26/20 025 Discontinued Active Problems Problem Noted Date Diagnosed Date Acute on chronic diastolic heart failure 023 Persistent atrial fibrillation 11/27/2021 Sick sinus syndrome 06/06/2021 Ascending aortic aneurysm 11/13/2020 Dyslipidemia 11/13/2020 Essential hypertension 11/13/2020 Hypertriglyceridemia 11/13/2020 CAD (coronary artery disease) 10/31/2020 CHF (congestive heart failure) 10/31/2020 SOB (shortness of breath) 10/31/2020 Encounters Date Type Department Care Team Description 06/29/2024 1:55 PM EST Ancillary Procedure [facility] [address] [facility] [address] [place] [address] from Last 3 Months Medical History Medical [...] Description 03/23/2025 1:00 PM EST Ancillary Procedure [facility] [address] [facility] [address] [place] [address] Health Maintenance Due Date Last [...] this topic Medical Devices Implanted Type Area Hand Shoes Sewer Device Identifier Shelf Expiration Date Model / Serial / Lot Huong Terry 8 Josie [id number] Implanted:03/11 (Quantity not on file) Cardiac Pacemaker [employer] EDORA 8 NARAYAN / [id number] / Procedures Procedure Name Priority Date/Time Associated Diagnosis Comments CARDIAC DEVICE CHECK- REMOTE- MURJ Routine 06/29/2024 1:52 PM EST COMPREHENSIVE METABOLIC PANEL Routine 03/30/2024 11:52 AM EST from Last 3 Months or Most Recently Relevant to Health Maintenance Results * Cardiac device check - Remote- MURJ (06/29/2024 1:52 PM EST) Date Time Interrogation Session [id number] CV DEVICE CHECK Type Interrogation Session RemoteScheduled CV DEVICE CHECK Implantable Pulse Generator Hand Shoes Sewer BIO CV DEVICE CHECK Implantable Pulse Generator Type IPG CV DEVICE CHECK Implantable Pulse Generator Model Edlisa 8 NARAYAN CV DEVICE CHECK Implantable Pulse Generator Serial Number [id number] CV DEVICE CHECK Implantable Pulse Generator Implant Date 20180329 CV DEVICE CHECK Battery Remaining Percentage 50.00 CV DEVICE CHECK Battery Status Middle of Service CV DEVICE CHECK Ronak Statistic RA Percent Paced 2.00 CV DEVICE CHECK Ronak Statistic RV Percent Paced 69.00 CV DEVICE CHECK Atrial Tachy Statistic AT/AF [place] Percent 100.00 CV DEVICE CHECK Lead Channel [...] parameters reviewed * Presenting rhythm: AF - SECTION HAND 60's * Heart Rate Histograms reviewed * No significant changes noted Narrative Procedure Note David Wolfe MD - 06/29/2024 IMPRESSION: Normal Remote: No Events * Normal Device Function * Alerts or events: None * Battery: Battery is at 50%, * Sensing, impedance and thresholds reviewed * Programmed parameters reviewed * Presenting rhythm: AF - SECTION HAND 60's * Heart Rate Histograms reviewed * [...] AM EST Performed at: ??01 - [facility] [address] ??[id number] Neurologist: Jannie Hughes MD, Phone: ??[phone] us David White MD LAB BLOOD ORDERABLES Final Res ult [facility] 1 from Last 3 Months or Most Recently Relevant to Health [place] [id number] [employer] MEDICARE Care Teams Laser Set Up Operator Relationship Specialty Start Date End Date Joey Shetty MD [address] [place] [address] Dr [facility] [place] [id number] PCP - General 08/03/13
--- OUTSIDE RECORDS SUMMARY | 2024-07-06 16:33 | XMS_ITS | Encounter Summary ---
Author Organization [facility] Address [address] [place] [address] Care Team Providers Care Laundry Aid Name Role Phone Joey Shetty MD Primary Care Provider [phone] Encounter Details Date Type Department Care Team (Late st Contact Info) Description 06/29/2024 1:55 PM EST Ancillary Procedure [facility] - [address] [place] [address] Social History Tobacco Use Types Packs/Day Years [...] Encounters Date Type Department Care Team (Late Contact Info) Description 03/23/2025 1:00 PM EST Ancillary Procedure [facility] [address] [place] [address] documented as of this encounter Procedures Procedure Name Priority Date/Time Associated Diagnosis Comments CARDIAC DEVICE CHECK- REMOTE- MURJ Routine 06/29/2024 1:52 PM EST documented in this encounter Results * Cardiac device check - Remote- MURJ (06/29/2024 1:52 PM EST) Date Time Interrogation Session [id number] CV DEVICE CHECK Type Interrogation Session RemoteScheduled CV DEVICE CHECK Implantable Pulse Generator Grease Machine Worker BIO CV DEVICE CHECK Implantable Pulse Generator Type IPG CV DEVICE CHECK Implantable Pulse Generator Model Edora 8 DR-T CV DEVICE CHECK Implantable Pulse Generator Serial Number [id number] CV DEVICE CHECK Implantable Pulse Generator Implant Date 20180329 CV DEVICE CHECK Battery Remaining Percentage 50.00 CV DEVICE CHECK Battery Status Middle of Service CV DEVICE CHECK Ronak Statistic RA Percent Paced 2.00 CV DEVICE CHECK Ronak Statistic RV Percent Paced 69.00 CV DEVICE CHECK Atrial Tachy Statistic AT/AF [place] Percent 100.00 CV DEVICE CHECK Lead Channel [...] parameters reviewed * Presenting rhythm: AF - COOLER MAN 60's * Heart Rate Histograms reviewed * No significant changes noted Narrative Procedure Note David Wolfe MD - 06/29/2024 IMPRESSION: Normal Remote: No Events * Normal Device Function * Alerts or events: None * Battery: Battery is at 50%, * Sensing, impedance and thresholds reviewed * Programmed parameters reviewed * Presenting rhythm: AF - COOLER MAN 60's * Heart Rate Histograms reviewed * No significant changes noted us David Wolfe MD CV IMPLANTABLE CARDIAC DEVICE PROCEDURES Final Result documented in this encounter Visit Diagnoses Not on filedocumented in this encounter Care Teams Laundry Aid Relationship Specialty Start Date End Date Joey Shetty MD [address] [place] [address] [address] [facility] [place] [address] PCP - General 08/03/13 documented as of this encounter
--- OUTSIDE RECORDS SUMMARY | 2024-07-06 16:33 | XMS_ITS ---
Author Organization [facility] Address [address] [place] [address] Care Team Providers Care Fire Extinguisher Mechanic Name Role Phone Joey Shetty Primary Care Provider Lilian Augustin [phone] Encounters Encounter Location Date Provider Diagnosis [address] [address] 01/27/2024 Lilian Monte Plan Of Treatment Next Appt Details Provider Name:Lilian ferris, 09/09/2024 10:00:00 AM, [address] [place], [address], Progress Notes * Eddie GASTONDOB: [birth year] (68 yo M)Acc No.[id number]:01/27/2024 Progress Note Patient:?Eddie GASTON Provider:?Lilian Monte DPM :1955???Age:68 Y???Sex:Male Yvon e:01/27/2024 Address:[address] [place], [place] [address]Agusto [place] Pcp:Joey Shetty Subjective: * Chief Complaints: * ??? * Medical History:? Objective: * Vitals:? Assessment: Plan: * Treatment: * Images: * The named appointment provid er may or may not be the originator of this progress note, and it is not deemed complete until electronically signed by the appointment provider. Sign off status: Pending * Provider:?Lilian Monte DPM Date:? Generated for Jasper espana/Sowmya/Maryam on:?07/06/2024 04:33 PM EST
--- OUTSIDE RECORDS SUMMARY | 2024-07-06 16:33 | XMS_ITS | Patient Health Record ---
Author Organization [facility] Address [address] [facility] [place] [address] Care Team Providers Care Radiological Technician Name Role Phone Joey Shetty Primary Care Provider Lilian Augustin Unavailable [phone] Allergies No Known Allergies Reason For Referral No Information Medications Medication SIG (Take, Route, Frequency, Duration) Notes Start Date End Date Status Taltz 40 MG/0.5ML 1 mL Subcutaneous Active Spiriva Respimat 2.5 MCG/ACT (Prior Auth#:[id number]) Inhalation for 30 Not-Taking Trelegy Ellipta Acti ve Advair Diskus 250-50 MCG/DOSE (Prior Auth#:[id number]) Inhalation for 90 Not-Taking Atorvastatin Calcium 40 MG (Prior Auth#:[id number]) Oral for 90 Active Isosorbide Mononitrate ER 30 MG (Prior Auth#:[id number]) Oral for 90 Active Aspirin Low Dose 81 MG (Prior Auth#:[id number]) Oral for 90 Active Magnesium Oxide 400 (241.3 Mg) MG (Prior Auth#:[id number]) Oral for 90 Active Furosemide 20 MG as directed Orally O nce a day Not-Taking Humira Not-Taking Carbidopa-Levodopa 25-100 MG (Prior Auth#:[id number]) Oral for 90 Active Albuterol Sulfate HFA 108 (90 Base) MCG/ACT (Prior Auth#:[id number]) Inhalation for 30 Active Metoprolol Tartrate 75 MG 1 tablet with food Orally Twice a day for 30 day(s) Active Meloxicam 7.5 MG (Prior Auth#:[id number]) Oral for 45 Active Medrol 4 MG as directed Orally 02/22/2021 Not-Taking Nebulizer Active Otezla 30 MG (Prior Auth#:[id number]) Oral for 90 Not-Taking dilTIAZem HCl ER Beads 180 MG 1 capsule Orally Once a day for 30 day(s) Not-Taking Bumetanide 2 MG 1 tablet Orally Once a day Active Warfarin Sodium 7.5 MG (Prior Auth#:[id number]) Oral for 90 Active Propranolol HCl 10 MG (Prior Auth#:[id number]) Oral for 90 Active Rosuvastatin Calcium 20 MG (Prior Auth#:[id number]) Oral for 90 Not-Taking Immunizations Vaccine Route [...] Problem Acquired hammer toe of right foot (7635489455907469) Other hammer toe(s) (acquired), right foot (M20.41) Active confirmed Problem 348066858 Peripheral vascular disease (I73.9) Active confirmed Problem 299607061 Psoriatic arthritis (L40.50) Active confirmed Possible Problem 370314294102922 Osteoarthritis o f right ankle and foot (M19.071) Active confirmed Problem 73047408 Osteoarthritis o f left ankle and foot (M19.072) Active confirmed Problem Atherosclerosis of [place] artery of both lower extremities, with unspecified presence of clinical manifestation (I70.203) Active confirmed Q7(A), Q8(2B), Q9(1B,2C) Problem 6291661530472728 Gouty arthritis of left foot (M10.9) Active confirmed Problem Localized, primary osteoarthritis of the ankle and/or foot (050887220) Arthritis of joint of lesser toe, right (M19.071) Active confirmed Vital Signs Blood pressure diastolic 70 mm Hg 06/17/2024 Height 6ft1in in 06/17/2024 Blood pressure systolic 120 mm Hg 06/17/2024 Weight 230 lbs 06/17/2024 BMI 30.34 kg/m2 06/17/2024 Encounters Encounter Location Date Provider Diagnosis [address] [address] 09/02/2023 Lilian Perica Tinea unguium B35.1 ; Pain in right toe(s) M79.674 and Pain in left toe(s) M79.[address] [address] 11/11/2023 Lilian Perica Tinea unguium B35.1 ; Pain in right toe(s) M79.674 and Pain in left toe(s) M79.[address] [address] 12/22/2023 Lilian Perica Ingrown nail L60.[address] [address] 01/21/2024 Lilian Perica Tinea unguium B35.1 ; Pain in right toe(s) M79.674 and Pain in left toe(s) M79.[address] [address] 04/01/2024 Lilian Perica Tinea unguium B35.1 ; Other hammer toe(s) (acquired), right foot M20.41 ; Pain in right toe(s) M79.674 ; Pain in left toe(s) M79.675 and Arthritis of joint of lesser toe, right M19.[address] [address] 06/17/2024 Lilian Perica Atherosclerosis of [place] artery of both lower extremities, with unspecified presence of clinical manifestation I70.203 ; Peripheral vascular disease I73.9 ; Tinea unguium B35.1 ; Pain in right toe(s) M79.674 and Pain in left toe(s) M79.675 Assessments Encounter Date Diagnosis (ICD Code) Assessment Notes Treatment Notes Treatment Clinical Notes Section Notes 09/02/2023 Tinea unguium (ICD-10 - B35.1) 12/22/2023 Ingrown nail (ICD-10 - L60.0) 01/21/2024 Tinea unguium (ICD-10 - B35.1) 11/11/2023 Tinea unguium (ICD-10 - B35.1) 04/01/2024 Tinea unguium (ICD-10 - B35.1) 04/01/2024 Other hammer toe(s) (acquired), right foot (ICD-10 - M20.41) 06/17/2024 Peripheral vascular disease (ICD-10 - I73.9) 06/17/2024 Atherosclerosis of [place] artery of both lower extremities, with unspecified presence of clinical manifestation (ICD-10 - I70.203) Q7(A), Q8(2B), Q9(1B,2C) 06/17/2024 Tinea unguium (ICD-10 - B35.1) 04/01/2024 Pain in right toe(s) (ICD-10 - [...] right (ICD-10 - M19.071) Plan Of Treatment Pending Test Test Name Order Date *Uric Acid, Serum 02/22/2021 X ray : Foot, right 3V 10/03/2020 Next Appt Details Provider Name:Lilian Ferris Carmen ferris, 09/09/2024 10:00:00 AM, [address] [place], [address], Insurance Providers Payer Name Payer Address Payer Phone Subscriber Number Group Number Insured Name Patient Relationship to Insured Coverage Start Date Coverage End Date [employer] Medicare Adv-[id number] [address] [address] [place] [address] [id number] Eddie Styles Self - patient is the insured Medical (General) History Medical History History ICD Code Anxiety Heart disease Lung disease Psoriasis/eczema Measles Chicken pox Mumps Vascular grafts Joint implants/screws Replacement Heart Valves Surgical History Surgery Date(Month/Year) aortic valve 08/1996 colonoscopy 05/31/21 Hospitalization History Reason Date(Month/Year) [facility]- Having trouble breathing and retaining fluids - atypical pneumonia 06/03
--- OUTSIDE RECORDS SUMMARY | 2024-07-06 16:33 | XMS_ITS ---
Author Organization [facility] Billing Info Address [address] [place] [address] [place] [address] Care Team Providers Care Burner Operator Name Role Phone BOGDAN FERGUSON Primary Care Provider JEEVAN VALENZUELA [phone] REASON FOR VISIT refill Potassium Medications Medication SIG (Take, Route, Frequency, Duration) Notes Start Date End Date Status Potassium Chloride ER 20 MEQ 1 tablet with food Orally twice per day for 90 days Active Encounters Encounter Location Date Provider Diagnosis [id number] [address] [id number] 09/10/2023 JEEVAN VALENZUELA Hypokalemia E87.6 Assessments Encounter Date Diagnosis (ICD Code) Assessment Notes Treatment Notes Treatment Clinical Notes Section Notes 09/10/2023 Hypokalemia (ICD-10 - E87.6) Plan Of Treatment Medication Medication Name Sig Start Date Stop Date Notes Potassium Chloride ER 20 MEQ 1 tablet wi th food Orally twice per day for 90 days Progress Notes * Eddie GASTONDOB: [birth year] (68 yo M)Acc No.[id number]:09/10/2023 Patient:?Eddie GASTON :1955???Age:68 Y???Sex:Male Address:[address] [place] [address] [place], [address] * Refills? Refill Potassium Chloride ER Tablet Extended Release, 20 MEQ, Orally, 180, 1 tablet with food, twice per day, 90 days, Refills=1 * true * Date:? Generated for Jasper espana/Sowmya/Darrylitting on:?07/06/2024 04:32 PM EST
--- OUTSIDE RECORDS SUMMARY | 2024-07-06 16:34 | XMS_ITS ---
Author Organization [facility] Address [address] [place] [address] Care Team Providers Care Mobile Ui Designer Name Role Phone Joey Shetty Primary Care Provider Lilian Augustin Unavailable [phone] Allergies No Known Allergies REASON FOR VISIT Painful nail(s) aggrevated by shoes causing difficulty standing/walking, Painful Toe(s) Medications Medication SIG (Take, Route, Frequency, Duration) Notes Start Date End Date Status Magnesium Oxide 400 (241.3 Mg) MG (Prior Auth#:[id number]) Oral for 90 Active Advair Diskus 250-50 MCG/DOSE (Prior Auth#:[id number]) Inhalation for 90 Active Spiriva Respimat 2.5 MCG/ACT (Prior Auth#:[id number]) Inhalation for 30 Active dilTIAZem HCl ER Beads 180 MG 1 capsule Orally Once a day for 30 day(s) Not-Taking Otezla 30 MG (Prior Auth#:[id number]) Oral for 90 Not-Taking Meloxicam 7.5 MG (Prior Auth#:[id number]) Oral for 45 Active Propranolol HCl 10 MG (Prior Auth#:[id number]) Oral for 90 Active Warfarin Sodium 7.5 MG (Prior Auth#:[id number]) Oral for 90 Active Metoprolol Tartrate 75 MG 1 tablet with food Orally Twice a day for 30 day(s) Active Nebulizer Active Furosemide 20 MG as directed Orally O nce a day Active Medrol 4 MG as directed Orally 02/22/2021 Not-Taking Atorvastatin Calcium 40 MG (Prior Auth#:[id number]) Oral for 90 Active Carbidopa-Levodopa 25-100 MG (Prior Auth#:[id number]) Oral for 90 Active Aspirin Low Dose 81 MG (Prior Auth#:[id number]) Oral for 90 Active Isosorbide Mononitrate ER 30 MG (Prior Auth#:[id number]) Oral for 90 Active Albuterol Sulfate HFA 108 (90 Base) MCG/ACT (Prior Auth#:[id number]) Inhalation for 30 Active Taltz 40 MG/0.5ML 1 mL Subcutaneous Active Rosuvastatin Calcium 20 MG (Prior Auth#:[id number]) Oral for 90 Not-Taking Humira Not-Taking Social [...] Problem Acquired hammer toe of right foot (4391524482561341) Other hammer toe(s) (acquired), right foot (M20.41) Active confirmed Problem Localized, primary osteoarthritis of the ankle and/or foot (241714071) Arthritis of joint of lesser toe, right (M19.071) Active confirmed Vital Signs Height 6ft 1in in 04/01/2024 Weight 232 lbs 04/01/2024 BMI 30.61 kg/m2 04/01/2024 Blood pressure systolic 120 mm Hg 04/01/20 24 Blood pressure diastolic 70 mm Hg 024 Encounters Encounter Location Date Provider Diagnosis [facility] [address] [place] [address] 04/01/2024 Lilian Monte Tinea unguium B35.1 ; [...] Reason: Provider Name:Lilian ferris, 09/09/2024 10:00:00 AM, [address] [place] [address], [address], Procedure Notes * Category Sub-Category Detail Notes [...] use of a nail nipper and/or dremel-type graphite grinder, to a more viable healthy nail [...] to maintain effectiveness in symptomatic relief - 36737 Progress Notes * Eddie GASTONDOB: [birth year] (68 yo M)Acc No.[id number]:04/01/2024 Progress Note Patient:?Eddie GASTON Provider:?Lilian Monte DPM :1955???Age:68 Y???Sex:Male Yvon e:04/01/2024 Address: [place], [place] Pcp:Joey Shetty Subjective: * Chief Complaints: * [...] ve 08/1996colonoscopy 05/31/21 * Hospitalization/Major Diagno stic Procedure:?[facility]- Having trouble breathing and retaining fluids - [...] yes, walking, housework. ?Marital status: . ?Occupation: [email or web address] * Medications:?TakingTaltz 40 MG/0.5ML Solution Prefilled Syringe 1 mL Subcutaneous Aspirin Low Dose 81 MG Tablet Delayed Release (Prior Auth#:[id number]) Oral Atorvastatin Calcium 40 MG Tablet (Prior Auth#:[id number]) Oral Carbidopa- Levodopa 25-100 MG Tablet (Prior Auth#:[id number]) Oral Furosemide 20 MG Tablet as directed Orally Once a day Meloxicam 7.5 MG Tablet (Prior Auth#:[id number]) Oral Metoprolol Tartrate 75 MG Tablet 1 tablet with food Orally Twice a day Nebulizer Propranolol HCl 10 MG Tablet (Prior Auth#:[id number]) Oral Warfarin Sodium 7.5 MG Tablet (Prior Auth#:[id number]) Oral Advair Diskus 250-50 MCG/DOSE Aerosol Powder Breath Activated (Prior Auth#:[id number]) Inhalation Spiriva Respimat 2.5 MCG/ACT Aerosol Solution (Prior Auth#:[id number]) Inhalation Magnesium Oxide 400 (241.3 Mg) MG Tablet (Prior Auth#:[id number]) Oral Isosorbide Mononitrate ER 30 MG Tablet Extended Release 24 Hour (Prior Auth#:[id number]) Oral Albuterol Sulfate HFA 108 (90 Base) MCG/ACT Aerosol Solution (Prior Auth#:[id number]) Inhalation Taking Taltz 40 MG/0.5ML Solution Prefilled Syringe 1 mL Subcutaneous Taking Aspirin Low Dose 81 MG Tablet Delayed Release (Prior Auth#:[id number]) Oral Taking Atorvastatin Calcium 40 MG Tablet (Prior Auth#:[id number]) Oral Taking Carbidopa-Levodopa 25-100 MG Tablet (Prior Auth#:[id number]) Oral Taking Furosemide 20 MG Tablet as directed Orally Once a day Taking Meloxicam 7.5 MG Tablet (Prior Auth#:[id number]) Oral Taking Metoprolol Tartrate 75 MG Tablet 1 tablet with food Orally Twice a day Taking Nebulizer Taking Propranolol HCl 10 MG Tablet (Prior Auth#:[id number]) Oral Taking Warfarin Sodium 7.5 MG Tablet (Prior Auth#:[id number]) Oral Taking Advair Diskus 250-50 MCG/DOSE Aerosol Powder Breath Activated (Prior Auth#:[id number]) Inhalation Taking Spiriva Respimat 2.5 MCG/ACT Aerosol Solution (Prior Auth#:[id number]) Inhalation Taking Magnesium Oxide 400 (241.3 Mg) MG Tablet (Prior Auth#:[id number]) Oral Taking Isosorbide Mononitrate ER 30 MG Tablet Extended Release 24 Hour (Prior Auth#:[id number]) Oral Taking Albuterol Sulfate HFA 108 (90 Base) MCG/ACT Aerosol Solution (Prior Auth#:[id number]) Inhalation Not-Taking/PRNHumira Medrol 4 MG Tablet Therapy Pack as directed Orally dilTIAZem HCl ER Beads 180 MG Capsule Extended Release 24 Hour 1 capsule Orally Once a day Otezla 30 MG Tablet (Prior Auth#:[id number]) Oral Rosuvastatin Calcium 20 MG Tablet (Prior Auth#:[id number]) Oral Medication List reviewed and reconciled with the patientNot-Taking/PRN Humira Not-Taking/PRN Medrol 4 MG Tablet Therapy Pack as directed Orally Not-Taking/PRN dilTIAZem HCl ER Beads 180 MG Capsule Extended Release 24 Hour 1 capsule Orally Once a day Not-Taking/PRN Otezla 30 MG Tablet (Prior Auth#:[id number]) Oral Not-Taking/PRN Rosuvastatin Calcium 20 MG Tablet (Prior Auth#:[id number]) Oral Medication List reviewed and reconciled with [...] use of a nail nipper and/or dremel-type graphite grinder, to a more viable healthy nail [...] to maintain effectiveness in symptomatic relief - [address].? * Procedure Codes:?85840 DEBRI DE NAIL, 6 OR MORE * [...] for Jasper espana/Sowmya/Maryam on:?07/06/2024 04:33 PM EST History and Physical [...]
--- OUTSIDE RECORDS SUMMARY | 2024-07-06 16:34 | XMS_ITS | Data Portability ---
Author Organization [place] [facility], Allergy Address [address] [place] [address] Care Team Providers Care Clay Dry Press Operator Name Role Phone HUE STEWART Primary Care Provider [phone] Assessment No assessment recorded. Plan of Treatment [...] Time Sensorineural hearing loss of bilateral ears 548643030 Active 2023 JOEL Rojas MD [address], [address], [facility] 09:33:49 Problem Notes None recorded. Procedures Surgical History Date Name Laterality Status Provider Name and Address Organization Details Recorded Time 04/11/2024 Comp Audio with Tymps (46907 & 89900) completed CARLOZ GRIFFIN, CRYSTAL [address] [address], [place], [address], [facility] 04/11/2024 09:52:08 Imaging Results Imaging Date Name Status LastModified by [facility] Details LastModified Time 04/11/2024 audiogram completed BARCODE [...] Updated DateTime 04/11/2024 185.42 cm 31 kg/m2 043735.21 g Kevin Rich [place] - [facility] 04/11/2024 09:21:01 Social History None recorded. Functional Status None recorded. Mental Status None recorded. Family History Nothing Reported. Medical History Condition Response Heart Problems Y Past Encounters Encounter ID Performer Location Encounter Start Date Encounter Closed Date Diagnosis/Indication Diagnosis SNOMED-CT Code Diagnosis ICD10 Code Diagnosis Note [id number] JOEL ANDERSON MD [facility] on [address] [place] [address] 04/11/2024 08:53:39 04/11/2024 10:11:29 Sensorineural hearing loss of bilateral ears 453495079 H90.3 Rechecked audio today (Pringle and Rinlarry were normal).Au diological evaluation results: 04/11/2024 [facility] ear:{{Norm al* Normal through 2 kHz Mild [...] Vivas Member ID Guarantor Name 04/11/2024 1 [place] (MEDICARE REPLACEMENT/A DVANTAGE - PPO) [id number] Eddie Styles [id number] Eddie Styles Notes Date Note Type Note [...] despite this hearing loss. JOEL ANDERSON MD [address] [place] [address], [place], [address], [facility] - [facility] 04/11/2024 10:10:32
--- OUTSIDE RECORDS SUMMARY | 2024-07-06 16:34 | XMS_ITS | Patient Health Record ---
Author Organization [facility] Billing Info Address [address] [place] [address] Care Team Providers Care Gynecological Assistant Name Role Phone BOGDAN FERGUSON Primary Care Provider [phone] JEEVAN VALENZUELA Prashant [phone] Allergies No Known Allergies Results Component Value Reference Range Notes BASIC METABOLIC PANEL([facility]- HEM7) Reviewed date:07/24/2023 09:05:40 AM Interpretation: Performing Lab:[facility]#[id number] [address] [address] Notes/Report: SODIUM 139 137-145 MMOL/L CORRECTED SODIUM [...] Problem Status W/U Status Risk Notes Problem 950833803 Obesity (BMI 30-39.9) (E66.9) Active confirmed Problem 965162844 Overweight (BMI 25.0-29.9) (E66.3) Active confirmed Vital Signs Heart Rate 72 /min 07/22/2023 Oximetry 98 07/22/2023 Blood pressure diastolic 76 mm Hg 07/22/2023 Height 73 in 07/22/2023 Blood pressure systolic 113 mm Hg 07/22/2023 Weight 229.8 lbs 07/22/2023 BMI 30.32 kg/m2 07/22/2023 Encounters Encounter Location Date Provider [id number] [address] [place], [place] [id number] 09/10/2023 JEEVAN VALENZUELA Hypokalemia E87.6 [id number] [address] [place], [place] [id number] 07/22/2023 JEEVAN VALENZUELA Hypokalemia E87.6 ; Acute [...] normally with limited visualization. 07/22/2023 Other Primary post anesthesia care unit nurse [facility]. Plan Of Treatment Pending Test Test Name Order Date BASIC METABOLIC PANEL([facility]-CHEM7) 2023 Future Test Test Name Order Date Basic Metabolic Panel (8) ([id number] ) 05/20/2023 Basic Metabolic Panel (8) ([id number] ) 06/10/2023 Basic Metabolic Panel (8) ([id number] ) 07/22/2023 Insurance Providers Payer Name Payer Address Payer Phone Subscriber Number Group Number Insured Name Patient Relationship to Insured Coverage Start Date Coverage End Date [facility] P[facility] [employer] [facility] ADVANTAGE [address] [address] [place], [place] [id number] Eddie Gaston Self - patient is the [...] with Preserved Ejection Fr action COPD 05/14/2022 [facility] Cardiac Ech o: Left ventricle: Normal global systolic left ventricular function. Ejection fraction was estimated in the range of 50% to 55%. Regional wall motion was normal. Diastolic function was indeterminate due to absence of NSR. Surgical History Surgery Date(Month/Year) Aortic Valve Mechanical Replacement Hospitalization History Reason Date(Month/Year) [facility] worsening dyspnea on e xertion and rest, atypical PNA, Afib, COPD 05/28/2023 [facility] COPD exacerbation, CHF exacerbatio n 05/12/2023
== END 2024-07-06 14:08 | disposition home or self-care (01) ==
PROVIDERS: PCP Internal Medicine; Visit Provider Internal Medicine
DX: I48.21 Permanent atrial fibrillation (principal); I50.32 Chronic diastolic (congestive) heart failure; J41.8 Mixed simple and mucopurulent chronic bronchitis; Z68.30 Body mass index [BMI] 30.0-30.9, adult; E66.9 Obesity, unspecified; G47.33 Obstructive sleep apnea (adult) (pediatric); Z95.2 Presence of prosthetic heart valve; I10 Essential (primary) hypertension; E78.00 Pure hypercholesterolemia, unspecified; I25.10 Atherosclerotic heart disease of native coronary artery without angina pectoris

== ENCOUNTER → 2024-07-06 13:28 | Outpatient (BNVA) | payer MEDICARE, SELFPAY | PROVIDERS: PCP Internal Medicine; Visit Provider Internal Medicine | DX: G47.33 Obstructive sleep apnea (adult) (pediatric) (principal); I48.21 Permanent atrial fibrillation; I11.0 Hypertensive heart disease with heart failure; I50.32 Chronic diastolic (congestive) heart failure; E66.9 Obesity, unspecified; E78.00 Pure hypercholesterolemia, unspecified; I25.10 Atherosclerotic heart disease of native coronary artery without angina pectoris; J41.8 Mixed simple and mucopurulent chronic bronchitis; Z95.2 Presence of prosthetic heart valve | CPT/HCPCS: 96127; 99212 ==

== ENCOUNTER → 2024-07-19 10:34 | Outpatient (BNVA) | payer MEDICARE, SELFPAY | PROVIDERS: PCP Internal Medicine; Visit Provider Internal Medicine ==

== ENCOUNTER → 2024-08-02 09:48 | Outpatient (BNVA) | payer MEDICARE, SELFPAY | PROVIDERS: PCP Internal Medicine; Visit Provider Internal Medicine Medical Oncology ==

== ENCOUNTER → 2024-08-09 11:30 | Outpatient (BNVA) | payer MEDICARE, SELFPAY | PROVIDERS: PCP Internal Medicine; Visit Provider Internal Medicine Medical Oncology ==

== ENCOUNTER → 2024-08-16 14:02 | Outpatient (BNVA) | payer MEDICARE, SELFPAY | PROVIDERS: PCP Internal Medicine; Visit Provider Internal Medicine Medical Oncology ==

== ENCOUNTER → 2024-08-23 11:24 | Outpatient (BNVA) | payer MEDICARE, SELFPAY | PROVIDERS: PCP Internal Medicine; Visit Provider Internal Medicine Medical Oncology | DX: Z13.89 Encounter for screening for other disorder (principal) ==

== ENCOUNTER 2024-08-30 10:23 | Outpatient (AMB) | payer MEDICARE, SELFPAY ==
--- NOTE | 2024-08-30 10:25 | A.OFFVIS_ITS ---
Vital Signs 08/30/24 10:26 Height 6 ft 1 in Weight 224 lb 4 oz BMI 29.6 BP 108/70 Blood Pressure Location Lt brachial Position Sitting Pulse 69 Pulse Source Pulse Oximeter Pulse Oximetry (%) 95 Oxygen Delivery Method Room Air Intake Visit Reasons: Follow up Intake Note: Patient presents follow up for tremors. Allergies rosuvastatin Allergy (Severe, Verified 08/30/24 10:53) muscle aches Medication List - Last Reconciled 08/30/24 by LINNEA Wallace albuterol sulfate 90 mcg/actuation (Ventolin HFA) 2 puffs inhalation Q6H PRN allopurinol 300 mg PO DAILY amoxicillin mg PO aspirin 81 mg PO DAILY atorvastatin 40 mg PO DAILY bumetanide 2 mg PO DAILY carbidopa-levodopa 25-100 mg 2 tabs PO TID 90 days cholecalciferol (vitamin D3) 50 mcg PO DAILY [CPAP AUTOPAP 6-20 cm water humidified AIR Sleep study done in 05/16/2024 rev ealing moderately severe obstructive sleep apnea with an AHI of 17 patient was advised CPAP therapy with auto PAP mode pressure setting 6-20 cm] dapagliflozin propanediol (Farxiga) 10 mg PO DAILY dapagliflozin propanediol (Farxiga) 10 mg PO DAILY ofpvdgvjmtc-gfnfpofhb-yhscbfmh 200-62.5-25 mcg (Trelegy Ellipta) 1 inh inhalation DAILY 90 days ipratropium-albuterol 0.5 mg-3 mg(2.5 mg base)/3 mL 3 mL inhalation BID 90 days isosorbide mononitrate ER 30 mg PO DAILY isosorbide mononitrate ER 60 mg PO DAILY latanoprost 0.005% 0 drps ophthalmic (eye) magnesium oxide 800 mg PO DAILY metoprolol tartrate 75 mg PO BID nebulizers As directed potassium chloride ER (Klor-Con M) 20 mEq PO BID propranolol 10 mg PO BID 90 days roflumilast (Daliresp) 250 mcg PO DAILY 90 days Taltz Autoinjector (ixekizumab) 80 mg subcut Q4W NS warfarin 7.5 mg See Protocol PO .QD warfarin 5 mg See Protocol PO DAILY HPI Comments Details: 69-yr-old male presents for f/u visit for ET. Pt reports denies any significant interval medical history changes. Reports episodes of pains- recently woke up with left lower anterior/lateral rib pain. Went to [facility] ER- CTA neg for PE, ?CT of the abdomen pelvis is unremarkable, CXR: Pulmonary vascular congestion and left pleural effusion. D/c dx- musckulosketelal- likely muscle strain d/t coughing, and was prescribed lidocaine patches, but was advised he could use topical diclofenac gel. Since, patient states that the left chest wall pain is improving slowly. He notes, that it is often difficult to tease out between his pulmonary symptoms in his CHF symptoms, as he is prone to shortness of breath on exertion. He states his lower extremity edema has been improved since starting farxiga. He does monitor his daily weights most of the time. Results review: ?Lab results : Results? 08/24/2024 20:28 EDT ? ? ?High Sensitivity Troponin (HSTnT) ? 21 ng/L ? 08/24/2024 15:40 EDT ? ? ?WBC ? 6.5 k/mm3 ?RBC ? 4.23 m/mm3 ?L? Hgb ? 14.0 Gm/dL ? Hct ? 40.6 % ?MCV ? 96.0 femtoliters ?H? MCH ? 33.1 pg ? MCHC ?34.5 Gm/dL ? Platelet Count ?242 k/mm3 ?RDW-SD ?52.3 femtoliters ?H? MPV ? 9.8 femtoliters ? Nucleated RBC (Automated) 0.0 #/100 WBC'S ? Abs. NRBC ? 0.0 k/mm3 ? Abs. Neut ? 4.3 k/mm3 ? Abs. Lymph ?1.1 k/mm3 ? Abs. [place] ? 0.8 k/mm3 ? Abs. Eo ? 0.2 k/mm3 ? Abs. Baso ? 0.1 k/mm3 ? Neut % ?66.1 % ? Lymph % ? 16.2 % ?[place] % ?12.6 % ?H? Eos % ? 3.1 % ? Baso % ?1.5 % ? Imm Gran ?0.5 % ? Abs. Imm Gran ? 0.0 k/mm3 ?INR ? 3.6 ?H?Protime (PT) ?33.4 seconds ?H? Sodium ?136 mmol/L ? Potassium ? 3.6 mmol/L ?Chloride ?97 mmol/L ?L? Bicarbonate Level ? 27 mmol/L ? Anion Gap ? 12 mmol/L ? Glucose Level ? 98 mg/dL ? BUN ? 19 mg/dL ?Creatinine-Blood ?0.67 mg/dL ?L? Estimated GFR Creatinine ?100 ML/MIN/1.73 M2 ? Calcium ? 9.7 mg/dL ? Protein, Total ?7.7 Gm/dL ? Albumin ? 4.3 Gm/dL ? AG Ratio ?1.3 ? Alkaline Phosphatase ? ? ?92 units/L ? AST (SGOT) ?24 units/L ? ALT (SGPT) ?<5 units/L ?Bilirubin, Total ?2.8 mg/dL ?H? Lactate ? 1.4 mmol/L ?Nt-Probnp ? 2,214 pg/mL ?H? High Sensitivity Troponin (HSTnT) ? 20 ng/L ? In regards to his tremor symptoms: Pt reports that the tremors are worsening, and sometimes they interfere with activities such as eating. May notice when trying to write or when swinging his golf club or when driving. The worsening tremor does not seem to be a/w CD-LD dosing. Pt's current tremor medication regimen: CD-LD 25-100mg 2 tabs tid (breakfast, lunch, after dinner/before bed). Propranolol 10mg bid. ADL's: Ind, but has to sit put on lower body clothing as he can be off-balance. Swallowing: None Drooling: None Orthostatic lightheadedness: At times, stands slowly. No syncope. Constipation: None Urinary symptoms: None Tremor: as above Dyskinesia: None Stiffness: Stiffness, especially in the morning in his BLE legs and knees/feet, occasional nocturnal leg/feet cramps. Gait changes: Unsteady if standing on one foot Freezing: None Falls: None Mood: Stable Hallucinations: None Memory: More difficulty with distant names- may come after a few minutes. Sleep: Ok- he is now sleeping well with PAP tx. Exercise: He has not signed up for the [place] Medical History Hearing deficit Chronic restrictive lung disease Pulmonary nodules Syncope Essential tremor Hypercholesterolemia Hypertension Coronary artery disease COPD (chronic obstructive pulmonary disease) Aortic aneurysm Pulmonary fibrosis Surgical History S/P placement of cardiac pacemaker Aortic valve replaced History of aneurysm History of heart artery stent History of open reduction and internal fixation (ORIF) procedure Family History Mother No problems noted. Father No problems noted. Social History Housing: House Alcohol intake: current Alcohol intake frequency: a few times a week Alcohol type: beer Comment: 2x a week 1-2 drinks Patient Tobacco Use Status: Former Tobacco user Tobacco use type: Cigarette Years Smoked: quit 1996 e-Cigarette/Vaping Use: Never Used Second Hand Smoke Exposure: No service: No Current occupational status: employed Cognitive needs: No Hearing needs: No Vision needs: Yes Physical Exam Vital Signs: Last Vital Signs Pulse 69 08/30/24 10:26 BP 108/70 08/30/24 10:26 Pulse Ox 95 08/30/24 10:26 Oxygen Delivery Method Room Air 08/30/24 10:26 BMI result Body Mass Index 29.6 Const General: cooperative and no acute distress Resp Effort & Inspection: normal respiratory effort and able to speak in complete sentences Neuro Other: General: A&O x's 3 Expression: Ok Voice: Intact Tremor: Mild LUE rest tremor, BUE, L > R, postural tremor Tone: Mild LUE tone Dyskinesia: None FFM: LUE- slight decrease. 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 Code(s): G25.0 - Essential tremor Category: Medical (2) Nocturnal leg cramps: Comment: stiffness Code(s): G47.62 - Sleep related leg cramps Category: Medical Plan Trial Amantadine 50-100mg qam (or 50mg bid- last dose by 3pm)-taken with food- in hopes this helps tremors. Continue Sinemet 25/100 mg 2 tabs TID. Continue Propranolol 10 mg BID. Monitor tremors, stiffness, cramps. Encouraged to increase regular physical activity- cardio, low weight exercises. Continue golfing as tolerated. Follow-up w/ cardiology and pulmonology as scheduled and prn worsening resp/cardiac s/s. Pt to follow-up in 6 months or sooner prn. Medications: New amantadine HCl take with food in am. 100 mg PO DAILY 90 days 90 tabs 1RF Coding Level of Care Code Est Pt Level 4 (20910) Diagnoses Essential tremor G25.0 Nocturnal leg cramps G47.62
[2024-08-30 10:26] VITALS: BP 108/70; PULSE 69; O2SAT 95; BMI 29.6
--- OUTSIDE RECORDS SUMMARY | 2024-08-30 12:00 | XMS_ITS ---
Author Organization [facility] Billing Info Address [address] [place] [id number] Care Team Providers Care Pocket Closer Name Role Phone BOGDAN FERGUSON Primary Care Provider SUNNYERICA Unavailable [phone] Allergies No Known Allergies REASON FOR VISIT [...] 06/24/2023 Encounters Encounter Location Date Provider [id number] [id number] [id number] 06/24/2023 ERICA CORREA Hypokalemia E87.6 ; Acute [...] Test Test Name Order Date BASIC METABOLIC PANEL([facility]) 2023 Next Appt Details Follow Up: 4 Weeks, Reason: f/up HF clinic Progress Notes * MARILIN Eddie SolaresDOB: [birth year] (67 yo M)Acc No.[id number]:06/24/2023 PROGRESS NOTE Patient:?Eddie GASTON Provider:?ERICA CORREA MD :[id number]???Age:67 Y???Sex:Male Yvon e:06/24/2023 ?N#:[id number] Address:[address] [place] [address] [id number] Pcp:BOGDAN FERGUSON Subjective: * Chief Complaints: * [...] or a close contact traveled outside the [facility] and you are now ill??No ?OFFICE USE [...] follow up. He was initially admitted to [facility] on 05/12/2023 for for a [...] or syncope. He plans to remain in [place] until 08/10/23 when he returns home to [place]. * ROS:?CARDIOLOGY:?Constitutional:?Negative for: fever, chills or headaches..?Cardiovascular:?Negative [...] %:94. * ???Past Orders: ???Lab:BASIC METABOLIC PANEL ([facility]) (Order Date - 06/17/2023) (Collection Date [...] CORREA MD Date:?06/11 Generated for Jasper espana/Sowmya/eTransmitting on:?08/30/2024 12:00 PM EDT History and Physical Notes * HPI (History of Present Illness) Category Sub-Category Detail Notes Category Not es Patient History Mr. Gaston presents today for follow up. He was initially admitted to [facility] on 05/12/2023 for for a [...] or syncope. He plans to remain in [place] until 08/10/23 when he returns home to [place]. First Point of Contact Screening Do any [...]
--- OUTSIDE RECORDS SUMMARY | 2024-08-30 12:01 | XMS_ITS | Clinical Summary ---
Author Organization [address] [facility] Address [address] [place] [address] Phone Care Team Providers Care Margin Clerk Name Role Phone Joey Shetty MD Primary Care Provider [phone] Allergies No known active allergies Medications isosorbide mononitrate (IMDUR) 60 mg 24 hr tablet Take 1 tablet (60 mg total) by mouth 1 (one) time each day in the morning. 12/06/19 23 Active isosorbide mononitrate (IMDUR) 30 mg 24 hr tablet TAKE 1 TABLET BY MOUTH IN THE EVENING 12/06/19 23 Active BUDESONIDE INHL Inhale into the lungs 2 times daily. Active ALBUTEROL SULFATE INHL if needed. Active meloxicam (MOBIC) 15 mg tablet Take 15 mg by mouth daily. Active cholecalciferol (VITAMIN D-3) 25 mcg (1,000 unit) capsule Take by mouth. Activ e aspirin 81 mg chewable tablet Take 81 mg by mouth daily. Active atorvastatin (LIPITOR) 40 mg tablet Take 40 mg by mouth daily. Active warfarin (COUMADIN) 7.5 mg tablet Take 7.5 mg by mouth daily. [facility] [place] coumadin Active propranoloL (INDERAL) 10 mg tablet Take 10 mg by mouth 2 times daily. Active ixekizumab (Taltz Syringe) 80 mg/mL syringe Inject 1 mL (80 mg total) under the skin every 28 (twenty-eight) days. Active carbidopa-levodopa (PARCOPA) 25-100 mg per disintegrating tablet Dissolve 2 tablets on top of the tongue 3 (three) times a day. Active bumetanide (BUMEX) 2 mg tablet Take 1 tablet (2 mg total) by mouth 1 (one) time each day. Active metoprolol tartrate (LOPRESSOR) 50 mg tablet Take 1.5 tablets (75 mg total) by mouth 2 (two) times a day. Active potassium chloride (KLOR-CON M20) 20 mEq CR tablet Take 1 tablet (20 mEq total) by mouth 2 (two) times a day. Tablet may be swallowed whole (do not crush/chew/suc k on) OR broken in half and each half swallowed separately OR dissolved (whole tablet) in ~4 ounces of water (allow ~2 minutes to dissolve, stir well and administer immediately). Active fluticasone-umecli dinium-vilanterol (Trelegy Ellipta) 200-62.5-25 mcg inhaler Inhale 1 puff (200 mcg total) by mouth 1 (one) time each day. Rinse mouth with water after use to reduce aftertaste and incidence of candidiasis. Do not swallow. Active dapagliflozin propanediol (FARXIGA) 10 mg tabletIndications: Acute on chronic diastolic heart failure (CMS/HCC V24, CMS/HCC V28) Take 1 tablet (10 mg total) by mouth 1 (one) time each day. 90 tablet 3 08/17/19 25 Active adalimumab (Humira,CF, Pen) 40 mg/0.4 mL pen Inject into the skin. 1 shot every 2 weeks 025 Discontinu ed(Formula ry change) furosemide (LASIX) 20 mg tablet TAKE 1 TABLET BY MOUTH EVERY OTHER DAY (EVERY 48 HOURS) ALTERNATING WITH 2 TABLETS EVERY OTHER DAY (EVERY 48 HOURS) 11/19/19 23 025 Discontinu ed(Discont inued by another clinician) carbidopa-levodopa (SINEMET) 25-100 mg per tablet Take 2 Tablets by mouth 3 times daily. 1.5 tablet TID 025 Discontinu ed(Duplica te order) dilTIAZem CD (CARDIZEM CD) 180 mg 24 hr capsule Take 180 mg by mouth daily. 025 Discontinu ed(Formula ry change) metoprolol tartrate (LOPRESSOR) 50 mg tablet TAKE 1 AND 1/2 TABLETS BY MOUTH DAILY AND 2 TABLETS BY MOUTH DAILY BEFORE DINNER 315 tablet 3 07/05/19 25 025 Discontinu ed(Discont inued by another clinician) Active Problems Problem Noted Date Diagnosed Date Pacemaker 08/21/2024 Overview (08/21/2024): March 29, 2018 status post successful implantation of Biotronik dual-chamber permanent pacemaker due to recurrent syncope with documented prolonged pauses with sick sinus syndrome by Dr. Wolfe at [facility] Assessment & Plan (08/21/2024 9:28 AM EDT): Device functioning well on last check. Periodic pacing. Continue to monitor via [facility] device clinic. History of mechanical aortic valve replacement 0 08/21/2024 Overview (08/21/2024): 1996 bicuspid aortic valve status post mechanical [facility] [place] aortic valve replacement Assessment & Plan (08/21/2024 9:28 AM EDT): Functioning well on last echocardiogram from August 2023. Continue to monitor by echocardiogram as per ACC standards and as clinically indicated. Continue with warfarin. SIENA on CPAP 08/21/2024 Assessment & Plan (08/21/2024 9:28 AM EDT): Continue with CPAP. Acute on chronic diastolic h eart failure (CMS/HCC V24, CMS/HCC V28) 09/18/2022 Assessment & Plan (08/21/2024 9:28 AM EDT): Echocardiogram from August 2023 showed preserved LV systolic function. He again is overloaded and has had success with transient increases in bumetanide without the significant leg cramping he experienced on furosemide. Thoracic impedance on device relatively stable, but more recently down trending. Edema likely also secondary to venous insufficiency with venous stasis dermatitis noted. He will double his bumetanide for four days and start dapagliflozin. Continue with isosorbide and metoprolol. Consider adding Entresto. We reviewed heart failure management including low-sodium diet, symptom surveillance, daily weights and medication compliance. Orders: dapagliflozin propanediol (FARXIGA) 10 mg tablet; Take 1 tablet (10 mg total) by mouth 1 (one) time each day. Persistent atrial fibrillation (CMS/HCC V24, CMS /HCC V28) 11/27/2021 Assessment & Plan (08/21/2024 9:28 AM EDT): Persistent on last device check. Rate controlled. CHADSVASc 4. On warfarin for mechanical aortic valve. Continue with metoprolol and warfarin. Followed by [facility] coumadin clinic. Orders: ECG 12 lead Ascending aortic aneurysm (CMS/HCC V24) 11/14/19 Overview (08/21/2024): 1996 ascending aortic aneurysm resection at time of SAVR August 19, [address] showing postoperative changes of aortic valve replacement and ascending aortic graft repair with no evidence of complication, aneurysmal aorta above the level of the graft measuring up to 5.5 cm unchanged Followed by CT surgery Assessment & Plan (08/21/2024 9:28 AM EDT): Status post graft repair in 1996. Aneurysm noted above graft and followed closely by CT surgery. Last echocardiogram showed 6.0 cm while non-contrast CT chest showed 5.5 cm. Blood pressure well controlled. Continue with metoprolol, bumetanide and isosorbide. Continue to monitor by echocardiogram as per ACC standards and as clinically indicated. Dyslipidemia 11/13/2020 Assessment & Plan (08/21/2024 9:28 AM EDT): Continue with atorvastatin. Essential hypertension 11/13/2020 Assessment & Plan (08/21/2024 9:28 AM EDT): Controlled. Continue with bumetanide, isosorbide, metoprolol. Hypertriglyceridemia 11/13/2020 CAD (coronary artery disease) 10/31/2020 Overview (08/21/2024): March 2005 - coronary angiogram with right coronary artery stenting with medical therapy of mild non-obtructive LAD disease 2013 - repeat angiogram with stable disease with patent stent July 2019 - repeat angiogram with stable disease with patent stent Assessment & Plan (08/21/2024 9:28 AM EDT): Catheterization from July 2019 showed patent RCA stent with stable residual disease. Echocardiogram from August 2023 showed preserved LV systolic function LVEF 55%. No anginal symptoms. Continue with aspirin, atorvastatin, dapagliflozin, isosorbide, metoprolol and warfarin. We discussed risk reduction through lifestyle choices including healthy diet, routine exercise and weight management. CHF (congestive heart failure) (CMS/HCC V24, CMS /HCC V28) 10/31/2020 Overview (08/21/2024): August 14, 2023 echocardiogram showing preserved LV systolic function LVEF 55% with moderate concentric left ventricular hypertrophy, abnormal septal motion consistent with postoperative status, biatrial enlargement, reduced RV global systolic function, mechanical aortic valve well-seated and normally functioning with no AI, mild mitral regurgitation, mild tricuspid regurgitation, normal pulmonary artery systolic pressure and dilatation of the ascending aorta 6.0 cm, no changes compared to prior study from 2021 SOB (shortness of breath) 10/31/2020 Encounters Date Type Department Care Team Description 08/16/2024 1:40 PM EDT Office Visit [facility] Cardiology [facility] [address] [place] [address] Twan Tan NP Acute on chronic diastolic heart failure (CMS/HCC V24, CMS/HCC V28) (Primary Dx); Aneurysm of ascending aorta without rupture (CMS/HCC V24); Persistent atrial fibrillation (CMS/HCC V24, CMS/HCC V28); Coronary artery disease involving [place] coronary artery of [place] heart without angina pectoris; History of mechanical aortic valve replacement; Pacemaker; Essential hypertension; Dyslipidemia; SIENA on CPAP 08/13/2024 12:45 AM EDT Ancillary Procedure [facility] [address] [place] [address] 06/29/2024 1:55 PM EST Ancillary Procedure [facility] - [address] [place] [address] from Last 3 Months Medical History Medical History Date Comments Dyspnea DX:Dyspnea Social History Tobacco Use Types Packs/Day Years Used Date Smoking Tobacco: Former Cigarettes Smokeless Tobacco: Never Alcohol Use Standard Drinks/Week Comments Yes 0 (1 standard drink = 0.6 oz pur e alcohol) occasionally Sex and Gender Information Value Date Recorded Sex Assigned at Not on file Legal Sex Male 1:23 AM EST Gender Identity Not on file Sexual Orientation Not on file Obstetrics History Last Filed Vital Signs Vital Sign Reading Time Taken Comments Blood Pressure 110/70 08/16/2024 1:43 PM EDT Pulse 68 08/16/2024 1:43 PM EDT Temperature - - Respiratory Rate - - Oxygen Saturation 95% 08/16/2024 1:43 PM EDT Inhaled Oxygen Concentration - - Weight 102 kg (224 lb) 08/16/2024 1:43 PM EDT Height 185.4 cm (6' 1 ) 08/16/2024 1:43 PM EDT Body Mass Index 29.55 08/16/2024 1:43 PM EDT Plan of Treatment Upcoming Encounters Date Type Department Care Team (Late st Contact Info) Description 03/23/2025 1:00 PM EST Ancillary Procedure [facility] [address] [facility] [address] [place] [address] Health Maintenance Due Date Last Done Comments Abdominal Aortic Aneurysm (AAA) Screen 04/19/2022 Cholesterol Screening (Lipid Panel) 04/19/2022 Colorectal Cancer Screening: Colonoscopy 04/19/2022 Depression Screening 04/19/2022 Falls Risk Assessment 04/19/2022 Hepatitis C Screening 04/19/2022 Medicare Annual Wellness Visit 04/19/2022 Social Influencers of Health Screening 04/19/2022 COVID-19 Vaccine ( season) 2024 02/02/2024, 01/30/2023, 01/25/2022, Additional history exists Hypertension/CHF/CAD Annual BMP Blood Test 03/30/2025 03/30/2024, 04/18/2021 DTaP,Tdap,and Td Vaccines (2 - Td or Tdap) 10/02/2027 10/01/2017 Zoster Vaccines Completed 03/02/2021, 12/27/2020 Pneumococcal Vaccine: 50+ Years Completed 10/08/2022, 02/11/2016 RSV Immunization Adult Patients Completed 01/30/2023 Influenza Vaccine Completed 02/02/2024, , 01/25/2022, Additional [...] age to complete this topic Meningococcal B Vaccine Aged Out No l onger eligible based on patient's age to complete this topic RSV Immunization Patients Under 20 months Aged Out No longer eligible based on patient's age to complete this topic Varicella Vaccines Aged Out No longer eligible based on patient's age to complete this topic Medical Devices Implanted Type Area Bible Teacher Device Identifier Shelf Expiration Date Model / Serial / Lot Cost Effective Data-[employer] Edora 8 Narayan [id number] Implanted:03/11 (Quantity not on file) Cardiac Pacemaker Ticket [employer] EDORA 8 NARAYAN / [id number] / Procedures Procedure Name Priority Date/Time Associated Diagnosis Comments ECG 12-LEAD Routine 08/16/2024 1:56 PM EDT Persistent atrial fibrillation (CMS/HCC V24, CMS/HCC V28) CARDIAC DEVICE CHECK- REMOTE- MURJ Routine 08/13/2024 12:40 AM EDT CARDIAC DEVICE CHECK- REMOTE- MURJ Routine 06/29/2024 1:52 PM EST COMPREHENSIVE METABOLIC PANEL Routine 03/30/2024 11:52 AM EST from Last 3 Months or Most Recently Relevant to Health Maintenance Results * ECG 12 lead (08/16/2024 1:56 PM EDT) Ventricular Rate ECG 78 BPM GEMUSE Atrial Rate 68 BPM GEMUSE QRS Duration 100 ms GEMUSE Q-T Interval 394 ms GEMUSE QTc 449 ms GEMUSE R Hume 54 degrees GEMUSE T Hume -76 degrees GEMUSE ECG Interpretation Atrial fibrillation ??with frequent ventricular-pace d complexes and with frequent Premature ventricular complexes ST and T wave abnormality, consider inferolateral ischemia vs LVH Abnormal ECG When compared with ECG of 21-NOV-2009 13:27, Electronic ventricular pacemaker has replaced Sinus rhythm Confirmed by SOLOMON NUNEZ ([id number]) on 08/16/2024 4:38:27 PM GEMUSE 08/16/2024 1:56 PM EDT 08/16/2024 4:38 PM EDT us Twan Tan WAG[employer]ER ECG ORDERABLES Final Resul t GEMUSE * Cardiac device check - Remote- MURJ (08/13/2024 12:40 AM EDT) Only the most recent of2 resultswithin the time period is included. Date Time Interrogation Session [id number] CV DEVICE CHECK Type Interrogation Session RemoteScheduled CV DEVICE CHECK Implantable Pulse Generator Bible Teacher BIO CV DEVICE CHECK Implantable Pulse Generator Type IPG CV DEVICE CHECK Implantable Pulse Generator Model Edora 8 DR-T CV DEVICE CHECK Implantable Pulse Generator Serial Number [id number] CV DEVICE CHECK Implantable Pulse Generator Implant Date [id number] CV DEVICE CHECK Battery Remaining Percentage 55.00 CV DEVICE CHECK Battery Status Middle of Service CV DEVICE CHECK Ronak Statistic RA Percent Paced 1.00 CV DEVICE CHECK Ronak Statistic RV Percent Paced 63.00 CV DEVICE CHECK Atrial Tachy Statistic AT/AF [place] Percent 100.00 CV DEVICE CHECK Lead Channel Sensing Intrinsic Amplitude 2.900 CV DEVICE CHECK Lead Channel Impedance Value 449 CV DEVICE CHECK Lead Channel RA Pacing Threshold Date 2023-12-17 CV DEVICE CHECK Lead Channel Setting Pacing Amplitude 1.600 CV DEVICE CHECK Lead Channel Setting Pacing Pulse Width 0.4 CV DEVICE CHECK Lead Channel Sensing Intrinsic Amplitude 15.200 CV DEVICE CHECK Lead Channel Impedance Value 488 CV DEVICE CHECK Lead Channel RV Pacing Threshold Date 2023-12-17 CV DEVICE CHECK Lead Channel Setting Pacing [...] 160 CV DEVICE CHECK Date of Service 2023-12-27 CV DEVICE CHECK Anatomical Region Laterality Modality Device Interroga tion 12/17/2023 12:1 6 AM EDT Impressions 12/22/2023 9:28 AM EDT Normal Remote: No Events * Normal Device Function * Alerts or events: None * Battery: Battery is at 55%, * Sensing, impedance and thresholds reviewed * Programmed parameters reviewed * Presenting rhythm reviewed * Heart Rate Histograms reviewed * No significant changes noted Narrative Procedure Note Solomon Wolfe MD - 08/13/2024 IMPRESSION: Normal Remote: No Events * Normal Device Function * Alerts or events: None * Battery: Battery is at 55%, * Sensing, impedance and thresholds reviewed * Programmed parameters reviewed * Presenting rhythm reviewed * Heart Rate Histograms reviewed * No significant changes noted Solomon Wolfe MD CV IMPLANTABLE CARDIAC DEVICE PROCEDURES [...] AM EST Performed at: ??01 - [facility] [address] ??[id number] Concrete Buster Operator: Jannie Hughes MD, Phone: ??[phone] us Solomon Nunez MD LAB BLOOD ORDERABLES Final Res ult [facility] 1 from Last 3 Months or Most Recently Relevant to Health Maintenance Insurance [employer] MEDICARE Care Teams Margin Clerk Relationship Specialty Start Date End Date Joey Shetty MD [address] [place] [address] [address] [facility] [place] [address] PCP - General 08/03/13
--- OUTSIDE RECORDS SUMMARY | 2024-08-30 12:01 | XMS_ITS ---
Author Organization [facility] Billing Info Address [address] [place] [address] [place] [address] Care Team Providers Care Lehr Attendant Name Role Phone BOGDAN FERGUSON Primary Care Provider JEEVAN VALENZUELA [phone] REASON FOR VISIT refill Potassium Medications Medication SIG (Take, Route, Frequency, Duration) Notes Start Date End Date Status Potassium Chloride ER 20 MEQ 1 tablet with food Orally twice per day for 90 days Active Encounters Encounter Location Date Provider Diagnosis [place] [address] [id number] 09/10/2023 JEEVAN VALENZUELA Hypokalemia E87.6 Assessments Encounter Date Diagnosis (ICD Code) Assessment Notes Treatment Notes Treatment Clinical Notes Section Notes 09/10/2023 Hypokalemia (ICD-10 - E87.6) Plan Of Treatment Medication Medication Name Sig Start Date Stop Date Notes Potassium Chloride ER 20 MEQ 1 tablet wi th food Orally twice per day for 90 days Progress Notes * Eddie GASTONDOB: [birth year] (68 yo M)Acc No.[id number]:09/10/2023 Patient:?Eddie GASTON :1955???Age:68 Y???Sex:Male Address:[address] [place] [address] [place], [address] * Refills? Refill Potassium Chloride ER Tablet Extended Release, 20 MEQ, Orally, 180, 1 tablet with food, twice per day, 90 days, Refills=1 * true * Date:? Generated for Jasper espana/Sowmya/Darrylitting on:?08/30/2024 12:01 PM EDT
--- OUTSIDE RECORDS SUMMARY | 2024-08-30 12:01 | XMS_ITS | Patient Health Record ---
Author Organization [facility] Address [address] [facility] [place] [address] Care Team Providers Care Stock Speculator Name Role Phone Joey Shetty Primary Care Provider Lilian Augustin Unavailable [phone] Allergies No Known Allergies Reason For Referral No Information Medications Medication SIG (Take, Route, Frequency, Duration) Notes Start Date End Date Status Taltz 40 MG/0.5ML 1 mL Subcutaneous Active Spiriva Respimat 2.5 MCG/ACT (Prior Auth#:[id number]) Inhalation for 30 Not-Taking Trelegy Ellipta Acti ve Advair Diskus 250-50 MCG/DOSE (Prior Auth#:[id number]) Inhalation for 90 Not-Taking Atorvastatin Calcium 40 MG (Prior Auth#:[id number]) Oral for 90 Active Isosorbide Mononitrate ER 30 MG (Prior Auth#:[id number]) Oral for 90 Active Aspirin Low Dose 81 MG (Prior Auth#:[id number]) Oral for 90 Active Magnesium Oxide 400 (241.3 Mg) MG (Prior Auth#:[id number]) Oral for 90 Active Furosemide 20 MG as directed Orally O nce a day Not-Taking Humira Not-Taking Carbidopa-Levodopa 25-100 MG (Prior Auth#:[id number]) Oral for 90 Active Albuterol Sulfate HFA 108 (90 Base) MCG/ACT (Prior Auth#:[id number]) Inhalation for 30 Active Metoprolol Tartrate 75 MG 1 tablet with food Orally Twice a day for 30 day(s) Active Meloxicam 7.5 MG (Prior Auth#:[id number]) Oral for 45 Active Medrol 4 MG as directed Orally 02/22/2021 Not-Taking Nebulizer Active Otezla 30 MG (Prior Auth#:[id number]) Oral for 90 Not-Taking dilTIAZem HCl ER Beads 180 MG 1 capsule Orally Once a day for 30 day(s) Not-Taking Bumetanide 2 MG 1 tablet Orally Once a day Active Warfarin Sodium 7.5 MG (Prior Auth#:[id number]) Oral for 90 Active Propranolol HCl 10 MG (Prior Auth#:[id number]) Oral for 90 Active Rosuvastatin Calcium 20 MG (Prior Auth#:[id number]) Oral for 90 Not-Taking Immunizations Vaccine Route [...] Problem Acquired hammer toe of right foot (3428097511943898) Other hammer toe(s) (acquired), right foot (M20.41) Active confirmed Problem 064820549 Peripheral vascular disease (I73.9) Active confirmed Problem 317878615 Psoriatic arthritis (L40.50) Active confirmed Possible Problem [id number] Osteoarthritis o f right ankle and foot (M19.071) Active confirmed Problem 53845536 Osteoarthritis o f left ankle and foot (M19.072) Active confirmed Problem Bilateral atherosclerosis of arteries of lower limbs (disorder) (02800702673746265 ) Atherosclerosis of [place] artery of both lower extremities, with unspecified presence of clinical manifestation (I70.203) Active confirmed Q7(A), Q8(2B), Q9(1B,2C) Problem 2887902038110122 Gouty arthritis of left foot (M10.9) Active confirmed Problem Localized, primary osteoarthritis of the ankle and/or foot (145311748) Arthritis of joint of lesser toe, right (M19.071) Active confirmed Vital Signs Blood pressure diastolic 70 mm Hg 06/17/2024 Height 6ft1in in 06/17/2024 Blood pressure systolic 120 mm Hg 06/17/2024 Weight 230 lbs 06/17/2024 BMI 30.34 kg/m2 06/17/2024 Encounters Encounter Location Date Provider Diagnosis [address] [address] 09/02/2023 Lilian Perica Tinea unguium B35.1 ; Pain in right toe(s) M79.674 and Pain in left toe(s) M79.[address] [address] 11/11/2023 Lilian Perica Tinea unguium B35.1 ; Pain in right toe(s) M79.674 and Pain in left toe(s) M79.[address] [address] 12/22/2023 Lilian Perica Ingrown nail L60.[address] [address] 01/21/2024 Lilian Perica Tinea unguium B35.1 ; Pain in right toe(s) M79.674 and Pain in left toe(s) M79.[address] [address] 04/01/2024 Lilian Perica Tinea unguium B35.1 ; Other hammer toe(s) (acquired), right foot M20.41 ; Pain in right toe(s) M79.674 ; Pain in left toe(s) M79.675 and Arthritis of joint of lesser toe, right M19.[address] [address] 06/17/2024 Lilian Perica Atherosclerosis of [place] artery of both lower extremities, with unspecified [...] disease (ICD-10 - I73.9) 06/17/2024 Atherosclerosis of [place] artery of both lower extremities, with unspecified [...] Provider Name:Lilian ferris, 09/09/2024 10:00:00 AM, [address] [place], [address], Insurance Providers Payer Name Payer Address Payer Phone Subscriber Number Group Number Insured Name Patient Relationship to Insured Coverage Start Date Coverage End Date [employer] Medicare Adv-[id number] [address] [address] [place] [address] [id number] Eddie Styles Self - patient is the insured Medical (General) History Medical History History ICD Code Anxiety Heart disease Lung disease Psoriasis/eczema Measles Chicken pox Mumps Vascular grafts Joint implants/screws Replacement Heart Valves Surgical History Surgery Date(Month/Year) aortic valve 08/1996 colonoscopy 05/31/21 Hospitalization History Reason Date(Month/Year) [facility]- Having trouble breathing and retaining fluids - atypical pneumonia 06/03
--- OUTSIDE RECORDS SUMMARY | 2024-08-30 12:01 | XMS_ITS ---
Author Organization [facility] Susie benavidez Billing Info Address [address] [place] [address] Care Team Providers Care Nuclear Auxiliary Operator Name Role Phone BOGDAN FERGUSON Primary Care Provider [phone] NICOLAS JEEVAN Prashant [phone] Allergies No Known Allergies REASON FOR VISIT [...] Problem Status W/U Status Risk Notes Problem [id number] Obesity (BMI 30-39.9) (E66.9) Active confirmed Vital Signs Height 73 in 07/22/2023 Weight 229.8 lbs 07/22/2023 BMI 30.32 kg/m2 07/22/2023 Blood pressure systolic 113 mm Hg 07/22/19 Blood pressure diastolic 76 mm Hg 024 Heart Rate 72 /min 07/22/2023 Oximetry 98 07/22/2023 Encounters Encounter Location Date Provider Diagnosis [facility] [address] [id number] 07/22/2023 JEEVAN VALENZUELA Hypokalemia E87.6 ; Acute [...] normally with limited visualization. 07/22/[address] [facility]. [facility]. Plan Of Treatment Treatment Notes Assessment [...] Name Order Date Basic Metabolic Panel (8) ([id number] ) 07/22/2023 Next Appt Details Follow Up: PRN, Reason: Progress Notes * Eddie GASTON BeckDOB: [birth year] (68 yo M)Acc No.[id number]:07/22/2023 PROGRESS NOTE Patient:?Eddie GASTON Appointment Provider:?JEEVAN VALENZUELA PA-C :1955???Age:68 Y???Sex:Male Sup ervising Provider:ERICA CORREA MD Date:07/22/2023 ?N#:[id number] Address:[address] [place], [place] [address]andrés CardozaAgusto, [facility] Pcp:BOGDAN FERGUSON Subjective: * Chief Complaints: * [...] a close contact traveled outside the [facility] and you are now ill??No ?OFFICE [...] follow up. He was initially admitted to [facility] on 05/12/2023 for for a [...] or syncope. He plans to remain in [place] until 08/10/23 when he returns home to [place]. 07/22/23: RTC today after 4 weeks on therapy; he has been doing great.? No signficiant peripheral edema. No sob or orthpnea. no return visits to the ED. No changes in his weight.? He plans to return home to [place] in 2 weeks. * ROS:?CARDIOLOGY:?Constitutional:?Negative for: fever, [...] * Treatment: 2.?Hypokalemia?LAB: Basic Metabolic Panel (8) ([id number]) (Ordered for 07/22/2023) Notes: patients potassium was [...] with limited visualization.?? 4.?Others? Clinical Notes: [facility].?? * Procedure Codes:? * Preventive Medicine:? [...] 10:04:16* Electronically co[place], [id number] on 07/24/2023 at 10:04 AM EDT Sign off status: Completed true * Appointment Provider:?MARIANNE VALENZUELA PA-C Date:?07/22/2023 Generated for Printing/Faxing/eTransmitting on:?08/30/2024 12:01 PM EDT History and Physical Notes * HPI (History of Present Illness) Category Sub-Category Detail Notes Category Not es Patient History Mr. Gaston presents today for follow up. He was initially admitted to [facility] on 05/12/2023 for for a [...] or syncope. He plans to remain in [place] until 08/10/23 when he returns home to [place]. 07/22/23: RTC today after 4 weeks on therapy; he has been doing great. No signficiant peripheral edema. No sob or orthpnea. no return visits to the ED. No changes in his weight. He plans to return home to [place] in 2 weeks. First Point of Contact Screening Do any of the following apply to you? New rash or open sores: No Fever and/or chills in the past 7 days: No Cough: No Muscle or body aches (other than from an injury): No Sore throat: No In the past 3 weeks, have yo u or a close contact traveled outside the [facility] and you are now ill? : [...]
--- OUTSIDE RECORDS SUMMARY | 2024-08-30 12:01 | XMS_ITS ---
Author Organization [facility] Address [address] [place] [address] Care Team Providers Care Heel Builder Machine Name Role Phone Joey Shetty Primary Care Provider Lilian Augustin [phone] Encounters Encounter Location Date Provider Diagnosis [address] [address] 01/27/2024 Lilian Monte Plan Of Treatment Next Appt Details Provider Name:Lilian ferris, 09/09/2024 10:00:00 AM, [address] [place], [address], Progress Notes * Eddei GASTONDOB: [birth year] (69 yo M)Acc No.[id number]:01/27/2024 Progress Note Patient:?Eddie GASTON Provider:?Lilian Monte DPM :1955???Age:68 Y???Sex:Male Yvon e:01/27/2024 Address:[address] [place], [place] [address] Pcp:Joey Shetty Subjective: * Chief Complaints: * ??? * Medical History:? Objective: * Vitals:? Assessment: Plan: * Treatment: * Images: * The named appointment provid er may or may not be the originator of this progress note, and it is not deemed complete until electronically signed by the appointment provider. Sign off status: Pending * Provider:?Lilian Monte DPM Date:? Generated for [place] espana/Sowmya/Maryam on:?08/30/2024 12:01 PM EDT
--- OUTSIDE RECORDS SUMMARY | 2024-08-30 12:02 | XMS_ITS ---
Author Organization [facility] Address [address] [facility] [place] [address] Care Team Providers Care Master Control Operator Name Role Phone DiogenesPeytonnella Primary Care Provider Lilian Augustin Unavailable [phone] Allergies No Known Allergies REASON FOR VISIT At Risk Footcare, Painful Nail(s) aggravated by shoes and causing difficulty standing/walking. Medications Medication SIG (Take, Route, Frequency, Duration) Notes Start Date End Date Status Otezla 30 MG (Prior Auth#:[id number]) Oral for 90 Not-Taking dilTIAZem HCl ER Beads 180 MG 1 capsule Orally Once a day for 30 day(s) Not-Taking Rosuvastatin Calcium 20 MG (Prior Auth#:[id number]) Oral for 90 Not-Taking Humira Not-Taking Medrol 4 MG as directed Orally 02/22/2021 Not-Taking Spiriva Respimat 2.5 MCG/ACT (Prior Auth#:[id number]) Inhalation for 30 Not-Taking Advair Diskus 250-50 MCG/DOSE (Prior Auth#:[id number]) Inhalation for 90 Not-Taking Isosorbide Mononitrate ER 30 MG (Prior Auth#:[id number]) Oral for 90 Active Magnesium Oxide 400 (241.3 Mg) MG (Prior Auth#:[id number]) Oral for 90 Active Albuterol Sulfate HFA 108 (90 Base) MCG/ACT (Prior Auth#:[id number]) Inhalation for 30 Active Nebulizer Active Warfarin Sodium 7.5 MG (Prior Auth#:[id number]) Oral for 90 Active Propranolol HCl 10 MG (Prior Auth#:[id number]) Oral for 90 Active Metoprolol Tartrate 75 MG 1 tablet with food Orally Twice a day for 30 day(s) Active Meloxicam 7.5 MG (Prior Auth#:[id number]) Oral for 45 Active Taltz 40 MG/0.5ML 1 mL Subcutaneous Active Atorvastatin Calcium 40 MG (Prior Auth#:[id number]) Oral for 90 Active Aspirin Low Dose 81 MG (Prior Auth#:[id number]) Oral for 90 Active Furosemide 20 MG as directed Orally O nce a day Not-Taking Carbidopa-Levodopa 25-100 MG (Prior Auth#:[id number]) Oral for 90 Active Bumetanide 2 MG [...] Problem Status W/U Status Risk Notes Problem Bilateral atherosclerosis of arteries of lower limbs (disorder) ([id number] ) Atherosclerosis of [place] artery of both lower extremities, with unspecified presence of clinical manifestation (I70.203) Active confirmed Q7(A), Q8(2B), Q9(1B,2 C) Problem 700766050 Peripheral vascular disease (I73.9) Active confirmed Vital Signs Height 6ft1in in 06/17/2024 Weight 230 lbs 06/17/2024 BMI 30.34 kg/m2 06/17/2024 Blood pressure systolic 120 mm Hg 06/17/19 25 Blood pressure diastolic 70 mm Hg 025 Encounters Encounter Location Date Provider Diagnosis [facility] [place] [address] [place] [address] 06/17/2024 Lilian Monte Atherosclerosis of [place] artery of both lower extremities, with unspecified presence of clinical manifestation I70.203 ; Peripheral vascular disease I73.9 ; Tinea unguium B35.1 ; Pain in right toe(s) M79.674 and Pain in left toe(s) M79.675 Assessments Encounter Date Diagnosis (ICD Code) Assessment Notes Treatment Notes Treatment Clinical Notes Section Notes 06/17/2024 Atherosclerosis of [place] artery of both lower extremities, with unspecified presence of clinical manifestation (ICD-10 - I70.203) Q7(A), Q8(2B), Q9(1B,2C) 06/17/2024 Peripheral vascular disease (ICD-10 - I73.9) 06/17/2024 Tinea unguium (ICD-10 - B35.1) 06/17/2024 Pain in right toe(s) (ICD-10 - M79.674) 06/17/2024 Pain in left toe(s) (ICD-10 - M79.675) Plan Of Treatment Next Appt Details Follow Up: 3 Months, Reason: Provider Name:Lilian ferris, 09/09/2024 10:00:00 AM, [address] [place] [address], [address], Procedure Notes * Category Sub-Category Detail Notes [...] use of a nail nipper and/or dremel-type swing frame grinder operator, to a more viable healthy [...] to maintain effectiveness in symptomatic relief - 67282 Keratoma Treatment Parring or Cutting o f [...] instrumentation by the physician of record - 36905 Progress Notes * Eddie GASTON BeckDOB: [birth year] (68 yo M)Acc No.[id number]:06/17/2024 Progress Note Patient:?Eddie GASTON Provider:?Lilian Monte DPM :1955???Age:68 Y???Sex:Male Yvon e:06/17/2024 Address:[address] [place], [place] [address] Pcp:Joey Shetty Subjective: * Chief Complaints: * [...] ve 08/1996colonoscopy 05/31/21 * Hospitalization/Major Diagno stic Procedure:?[facility]- Having trouble breathing and retaining fluids - atypical pneumonia 06/03 * Family History:?Mother: karyn hernandez.?Father: .?Spouse: alive.? * Social History:?Tobacco Use:?Tobacco use other than smoking?Are you an other tobacco user??No ?Tobacco Control (Standard)?Tobacco use:?Nonsmoker ???Miscellaneous:?Caffeine: yes, frequency:, 1-2 cups per day. ?Children: yes, 1. ?Exercise: yes, walking, housework. ?Marital status: . ?Occupation: [employer].. * Medications:?TakingBumetanid e 2 MG Tablet 1 tablet Orally Once a day Bernardino Mac 40 MG/0.5ML Solution Prefilled Syringe 1 mL Subcutaneous Aspirin Low Dose 81 MG Tablet Delayed Release (Prior Auth#:[id number]) Oral Atorvastatin Calcium 40 MG Tablet (Prior Auth#:[id number]) Oral Carbidopa-Levodopa 25-100 MG Tablet (Prior Auth#:[id number]) Oral Meloxicam 7.5 MG Tablet (Prior Auth#:[id number]) Oral Metoprolol Tartrate 75 MG Tablet 1 tablet with food Orally Twice a day Nebulizer Propranolol HCl 10 MG Tablet (Prior Auth#:[id number]) Oral Warfarin Sodium 7.5 MG Tablet (Prior Auth#:[id number]) Oral Magnesium Oxide 400 (241.3 Mg) MG Tablet (Prior Auth#:[id number]) Oral Isosorbide Mononitrate ER 30 MG Tablet Extended Release 24 Hour (Prior Auth#:[id number]) Oral Albuterol Sulfate HFA 108 (90 Base) MCG/ACT Aerosol Solution (Prior Auth#:[id number]) Inhalation Taking Bumetanide 2 MG Tablet 1 tablet Orally Once a day Taking Trelegy Ellipta Taking Taltz 40 MG/0.5ML Solution Prefilled Syringe 1 mL Subcutaneous Taking Aspirin Low Dose 81 MG Tablet Delayed Release (Prior Auth#:[id number]) Oral Taking Atorvastatin Calcium 40 MG Tablet (Prior Auth#:[id number]) Oral Taking Carbidopa-Levodopa 25-100 MG Tablet (Prior Auth#:[id number]) Oral Taking Meloxicam 7.5 MG Tablet (Prior Auth#:[id number]) Oral Taking Metoprolol Tartrate 75 MG Tablet 1 tablet with food Orally Twice a day Taking Nebulizer Taking Propranolol HCl 10 MG Tablet (Prior Auth#:[id number]) Oral Taking Warfarin Sodium 7.5 MG Tablet (Prior Auth#:[id number]) Oral Taking Magnesium Oxide 400 (241.3 Mg) MG Tablet (Prior Auth#:[id number]) Oral Taking Isosorbide Mononitrate ER 30 MG Tablet Extended Release 24 Hour (Prior Auth#:[id number]) Oral Taking Albuterol Sulfate HFA 108 (90 Base) MCG/ACT Aerosol Solution (Prior Auth#:[id number]) Inhalation Not-Taking/PRNFurosemide 20 MG Tablet as directed Orally Once a day Advair Diskus 250-50 MCG/DOSE Aerosol Powder Breath Activated (Prior Auth#:[id number]) Inhalation Spiriva Respimat 2.5 MCG/ACT Aerosol Solution (Prior Auth#:[id number]) Inhalation Humira Medrol 4 MG Tablet Therapy Pack as directed Orally dilTIAZem HCl ER Beads 180 MG Capsule Extended Release 24 Hour 1 capsule Orally Once a day Otezla 30 MG Tablet (Prior Auth#:[id number]) Oral Rosuvastatin Calcium 20 MG Tablet (Prior Auth#:[id number]) Oral Medication List reviewed and reconciled with the patientNot-Taking/PRN Furosemide 20 MG Tablet as directed Orally Once a day Not-Taking/PRN Advair Diskus 250-50 MCG/DOSE Aerosol Powder Breath Activated (Prior Auth#:[id number]) Inhalation Not-Taking/PRN Spiriva Respimat 2.5 MCG/ACT Aerosol Solution (Prior Auth#:[id number]) Inhalation Not-Taking/PRN Humira Not- Taking/PRN Medrol 4 MG Tablet Therapy Pack as directed Orally Not-Taking/PRN dilTIAZem HCl ER Beads 180 MG Capsule Extended Release 24 Hour 1 capsule Orally Once a day Not-Taking/PRN Otezla 30 MG Tablet (Prior Auth#:[id number]) Oral Not- Taking/PRN Rosuvastatin Calcium 20 MG Tablet (Prior Auth#:[id number]) Oral Medication List reviewed and reconciled with [...] vascular disea se - I73.9 (Primary)???2.?Atherosclerosis of [place] artery of both lower extremities, with unspecified [...] use of a nail nipper and/or dremel-type swing frame grinder operator, to a more viable healthy [...] to maintain effectiveness in symptomatic relief - 83070.?Keratoma Treatment:?Parring or Cutting of Benign Hyperkeratotic Lesion(s)?(-56) [...] instrumentation by the physician of record - 82898.? * Procedure Codes:?74295 DEBRI DE NAIL, 6 OR MORE, Modifiers: XS 44958 TRIM SKIN LESIONS, 2 TO 4, Modifiers: [...] Monte DPM Date:?11/2024 Generated for [place] espana/Sowmya/Maryam on:?08/30/2024 12:01 PM EDT History and Physical [...]
--- OUTSIDE RECORDS SUMMARY | 2024-08-30 12:02 | XMS_ITS ---
Author Organization [facility] Address [address] [facility] [place] [address] Care Team Providers Care Tire Design Engineer Name Role Phone Joey Shetty Primary Care Provider Lilian Augustin Unavailable [phone] Allergies No Known Allergies REASON FOR VISIT Painful nail(s) aggrevated by shoes causing difficulty standing/walking, Painful Toe(s) Medications Medication SIG (Take, Route, Frequency, Duration) Notes Start Date End Date Status Magnesium Oxide 400 (241.3 Mg) MG (Prior Auth#:[id number]) Oral for 90 Active Advair Diskus 250-50 MCG/DOSE (Prior Auth#:[id number]) Inhalation for 90 Active Spiriva Respimat 2.5 MCG/ACT (Prior Auth#:[id number]) Inhalation for 30 Active dilTIAZem HCl ER Beads 180 MG 1 capsule Orally Once a day for 30 day(s) Not-Taking Otezla 30 MG (Prior Auth#:[id number]) Oral for 90 Not-Taking Meloxicam 7.5 MG (Prior Auth#:[id number]) Oral for 45 Active Propranolol HCl 10 MG (Prior Auth#:[id number]) Oral for 90 Active Warfarin Sodium 7.5 MG (Prior Auth#:[id number]) Oral for 90 Active Metoprolol Tartrate 75 MG 1 tablet with food Orally Twice a day for 30 day(s) Active Nebulizer Active Furosemide 20 MG as directed Orally O nce a day Active Medrol 4 MG as directed Orally 02/22/2021 Not-Taking Atorvastatin Calcium 40 MG (Prior Auth#:[id number]) Oral for 90 Active Carbidopa-Levodopa 25-100 MG (Prior Auth#:[id number]) Oral for 90 Active Aspirin Low Dose 81 MG (Prior Auth#:[id number]) Oral for 90 Active Isosorbide Mononitrate ER 30 MG (Prior Auth#:[id number]) Oral for 90 Active Albuterol Sulfate HFA 108 (90 Base) MCG/ACT (Prior Auth#:[id number]) Inhalation for 30 Active Taltz 40 MG/0.5ML 1 mL Subcutaneous Active Rosuvastatin Calcium 20 MG (Prior Auth#:[id number]) Oral for 90 Not-Taking Humira Not-Taking Social [...] Problem Acquired hammer toe of right foot (6629927682494792) Other hammer toe(s) (acquired), right foot (M20.41) Active confirmed Problem Localized, primary osteoarthritis of the ankle and/or foot (625785477) Arthritis of joint of lesser toe, right (M19.071) Active confirmed Vital Signs Height 6ft 1in in 04/01/2024 Weight 232 lbs 04/01/2024 BMI 30.61 kg/m2 04/01/2024 Blood pressure systolic 120 mm Hg 04/01/20 24 Blood pressure diastolic 70 mm Hg 024 Encounters Encounter Location Date Provider Diagnosis [facility] [place] [address] [place] [address] 04/01/2024 Lilian Monte Tinea unguium B35.1 ; [...] Reason: Provider Name:Lilian ferris, 09/09/2024 10:00:00 AM, [address] [place] [address], [address], Procedure Notes * Category Sub-Category Detail Notes [...] use of a nail nipper and/or dremel-type rotary surface grinder, to a more viable healthy nail [...] to maintain effectiveness in symptomatic relief - 63314 Progress Notes * Eddie GASTONDOB: [birth year] (68 yo M)Acc No.[id number]:04/01/2024 Progress Note Patient:?Eddie GASTON Provider:?Lilian Monte DPM :1955???Age:68 Y???Sex:Male Yvon e:04/01/2024 Address: [place], [place] Pcp:Joey Shetty Subjective: * Chief Complaints: * [...] ve 08/1996colonoscopy 05/31/21 * Hospitalization/Major Diagno stic Procedure:?[facility]- Having trouble breathing and retaining fluids - [...] yes, walking, housework. ?Marital status: . ?Occupation: [employer] * Medications:?TakingTaltz 40 MG/0.5ML Solution Prefilled Syringe 1 mL Subcutaneous Aspirin Low Dose 81 MG Tablet Delayed Release (Prior Auth#:[id number]) Oral Atorvastatin Calcium 40 MG Tablet (Prior Auth#:[id number]) Oral Carbidopa- Levodopa 25-100 MG Tablet (Prior Auth#:[id number]) Oral Furosemide 20 MG Tablet as directed Orally Once a day Meloxicam 7.5 MG Tablet (Prior Auth#:[id number]) Oral Metoprolol Tartrate 75 MG Tablet 1 tablet with food Orally Twice a day Nebulizer Propranolol HCl 10 MG Tablet (Prior Auth#:[id number]) Oral Warfarin Sodium 7.5 MG Tablet (Prior Auth#:[id number]) Oral Advair Diskus 250-50 MCG/DOSE Aerosol Powder Breath Activated (Prior Auth#:[id number]) Inhalation Spiriva Respimat 2.5 MCG/ACT Aerosol Solution (Prior Auth#:[id number]) Inhalation Magnesium Oxide 400 (241.3 Mg) MG Tablet (Prior Auth#:[id number]) Oral Isosorbide Mononitrate ER 30 MG Tablet Extended Release 24 Hour (Prior Auth#:[id number]) Oral Albuterol Sulfate HFA 108 (90 Base) MCG/ACT Aerosol Solution (Prior Auth#:[id number]) Inhalation Taking Taltz 40 MG/0.5ML Solution Prefilled Syringe 1 mL Subcutaneous Taking Aspirin Low Dose 81 MG Tablet Delayed Release (Prior Auth#:[id number]) Oral Taking Atorvastatin Calcium 40 MG Tablet (Prior Auth#:[id number]) Oral Taking Carbidopa-Levodopa 25-100 MG Tablet (Prior Auth#:[id number]) Oral Taking Furosemide 20 MG Tablet as directed Orally Once a day Taking Meloxicam 7.5 MG Tablet (Prior Auth#:[id number]) Oral Taking Metoprolol Tartrate 75 MG Tablet 1 tablet with food Orally Twice a day Taking Nebulizer Taking Propranolol HCl 10 MG Tablet (Prior Auth#:[id number]) Oral Taking Warfarin Sodium 7.5 MG Tablet (Prior Auth#:[id number]) Oral Taking Advair Diskus 250-50 MCG/DOSE Aerosol Powder Breath Activated (Prior Auth#:[id number]) Inhalation Taking Spiriva Respimat 2.5 MCG/ACT Aerosol Solution (Prior Auth#:[id number]) Inhalation Taking Magnesium Oxide 400 (241.3 Mg) MG Tablet (Prior Auth#:[id number]) Oral Taking Isosorbide Mononitrate ER 30 MG Tablet Extended Release 24 Hour (Prior Auth#:[id number]) Oral Taking Albuterol Sulfate HFA 108 (90 Base) MCG/ACT Aerosol Solution (Prior Auth#:[id number]) Inhalation Not-Taking/PRNHumira Medrol 4 MG Tablet Therapy Pack as directed Orally dilTIAZem HCl ER Beads 180 MG Capsule Extended Release 24 Hour 1 capsule Orally Once a day Otezla 30 MG Tablet (Prior Auth#:[id number]) Oral Rosuvastatin Calcium 20 MG Tablet (Prior Auth#:[id number]) Oral Medication List reviewed and reconciled with the patientNot-Taking/PRN Humira Not-Taking/PRN Medrol 4 MG Tablet Therapy Pack as directed Orally Not-Taking/PRN dilTIAZem HCl ER Beads 180 MG Capsule Extended Release 24 Hour 1 capsule Orally Once a day Not-Taking/PRN Otezla 30 MG Tablet (Prior Auth#:[id number]) Oral Not-Taking/PRN Rosuvastatin Calcium 20 MG Tablet (Prior Auth#:[id number]) Oral Medication List reviewed and reconciled with [...] use of a nail nipper and/or dremel-type rotary surface grinder, to a more viable healthy nail [...] to maintain effectiveness in symptomatic relief - 73831.? * Procedure Codes:?49531 DEBRI DE NAIL, 6 OR MORE * [...] Sub-Category Detail Notes Category Not es Orthopedic FOOTWEAR EVALUATION: shoe gear p roperties exacerbate patients foot/toe deformity DIGITAL DEFORMITIES: Digital [...]
--- OUTSIDE RECORDS SUMMARY | 2024-08-30 12:02 | XMS_ITS | Data Portability ---
Author Organization [place] - [facility], [facility] Address [address] [place] [address] Care Team Providers Care Pasteurizing Supervisor Name Role Phone HUE STEWART Primary Care [...] Time Sensorineural hearing loss of bilateral ears 254075041 Active 2023 JOEL Rojas MD [address], [address], [facility] 09:33:49 Problem Notes None recorded. Procedures Surgical History Date Name Laterality Status Provider Name and Address Organization Details Recorded Time 04/11/2024 Comp Audio with Tymps (47726 & 02606) completed CARLOZ GRIFFIN, CRYSTAL [address] [address], [place], [address], [facility] 04/11/2024 09:52:08 Imaging Results Imaging Date Name Status LastModified by [facility] Details LastModified Time 04/11/2024 audiogram [...] Updated DateTime 04/11/2024 185.42 cm 31 kg/m2 782912.21 g Kevin Rich [place] - [facility] 04/11/2024 09:21:01 Social History None recorded. Functional Status None recorded. Mental Status None recorded. Family History Nothing Reported. Medical History Condition Response Heart Problems Y Past Encounters Encounter ID Performer Location Encounter Start Date Encounter Closed Date Diagnosis/Indication Diagnosis SNOMED-CT Code Diagnosis ICD10 Code Diagnosis Note [id number] JOEL ANDERSON MD [facility] on [address] [place] [address] 04/11/2024 08:53:39 04/11/2024 10:11:29 Sensorineural hearing loss of bilateral ears 239188512 H90.3 Rechecked audio today (Pringle and Rinlarry were normal).Au diological evaluation results: 04/11/2024 [facility] ear:{{Norm al* Normal through 2 kHz [...] Vivas Member ID Guarantor Name 04/11/2024 1 [facility] (MEDICARE REPLACEMENT/A DVANTAGE - PPO) [id number] Eddie Styles [id number] Eddie Styles Notes Date Note Type Note [...] despite this hearing loss. JOEL ANDERSON MD [address] [place] [address], [place], [address], [facility] - [facility] 04/11/2024 10:10:32
--- OUTSIDE RECORDS SUMMARY | 2024-08-30 12:02 | XMS_ITS | Patient Health Record ---
Author Organization [facility] Susie benavidez Billing Info Address [address] [place] [address] Care Team Providers Care Agricultural Research Technician Name Role Phone BOGDAN FERGUSON Primary Care Provider [phone] JEEVAN VALENZUELA Unavailable [phone] Allergies No Known Allergies Reason For Referral [...] Problem Status W/U Status Risk Notes Problem [id number] Obesity (BMI 30-39.9) (E66.9) Active confirmed Problem [id number] Overweight (BMI 25.0-29.9) (E66.3) Active confirmed Encounters Encounter Location Date Provider Diagnosis [id number] [address] [id number] 09/10/2023 JEEVAN VALENZUELA Hypokalemia E87.6 Assessments Encounter Date Diagnosis (ICD Code) Assessment Notes Treatment Notes Treatment Clinical Notes Section Notes 09/10/2023 Hypokalemia (ICD-10 - E87.6) Plan Of Treatment Pending Test Test Name Order Date BASIC METABOLIC PANEL([facility]) 2023 Future Test Test Name Order Date Basic Metabolic Panel (8) (-[id number] ) 05/20/2023 Basic Metabolic Panel (8) ([id number] ) 06/10/2023 Basic Metabolic Panel (8) ([id number] ) 07/22/2023 Insurance Providers Payer Name Payer Address Payer Phone Subscriber Number Group Number Insured Name Patient Relationship to Insured Coverage Start Date Coverage End Date [facility] [employer] [address] [address] [place] [place] [id number] Eddie Gaston Self - patient is the [...] with Preserved Ejection Fr action COPD 05/14/2022 [facility] Cardiac Ech o: Left ventricle: Normal global systolic left ventricular function. Ejection fraction was estimated in the range of 50% to 55%. Regional wall motion was normal. Diastolic function was indeterminate due to absence of NSR. Surgical History Surgery Date(Month/Year) Aortic Valve Mechanical Replacement Hospitalization History Reason Date(Month/Year) [facility] worsening dyspnea on e xertion and rest, atypical PNA, Afib, COPD 05/28/2023 [facility] COPD exacerbation, CHF exacerbatio n 05/12/2023
== END 2024-08-30 11:29 | disposition home or self-care (01) ==
LOC: HO.HSMS 10:24
PROVIDERS: PCP Internal Medicine; Visit Provider Nurse Practitioner Family
DX: G25.0 Essential tremor (principal); G47.62 Sleep related leg cramps
CPT/HCPCS: 99214

== ENCOUNTER → 2024-08-30 10:23 | Outpatient (BNVA) | payer MEDICARE, SELFPAY | PROVIDERS: PCP Internal Medicine; Visit Provider Nurse Practitioner Family | DX: G25.0 Essential tremor (principal); G47.62 Sleep related leg cramps | CPT/HCPCS: 99212 ==

== ENCOUNTER → 2024-09-06 13:42 | Outpatient (BNVA) | payer MEDICARE, SELFPAY | PROVIDERS: PCP Internal Medicine; Visit Provider Internal Medicine Medical Oncology ==

== ENCOUNTER → 2024-09-13 11:25 | Outpatient (BNVA) | payer MEDICARE, SELFPAY | PROVIDERS: PCP Internal Medicine; Visit Provider Internal Medicine Medical Oncology | DX: Z13.89 Encounter for screening for other disorder (principal) ==

== ENCOUNTER → 2024-09-20 09:33 | Outpatient (BNVA) | payer MEDICARE, SELFPAY | PROVIDERS: PCP Internal Medicine; Visit Provider Internal Medicine Medical Oncology ==

== ENCOUNTER 2024-09-27 08:53 | Outpatient (AMB) | payer MEDICARE, SELFPAY ==
[2024-09-27 09:14] LABS: Prothrombin Time Whole Bld POC 40.5 sec (11.1-13.5); ~PT, ~INR - Anti Coag Clinic 3.4 (0.9-1.1)
--- NOTE | 2024-09-27 09:14 | MHC.OFFVISCO ---
Intake Intake Visit Reasons: Anticoagulation Allergies rosuvastatin Allergy (Severe, Verified 09/27/24 08:57) muscle aches Medication List - Last Reconciled 09/27/24 by Kami Westfall RN albuterol sulfate 90 mcg/actuation (Ventolin HFA) 2 puffs inhalation Q6H PRN allopurinol 300 mg PO DAILY amantadine HCl 100 mg PO DAILY 90 days amoxicillin mg PO aspirin 81 mg PO DAILY atorvastatin 40 mg PO DAILY bumetanide 2 mg PO DAILY carbidopa-levodopa 25-100 mg 2 tabs PO TID 90 days cholecalciferol (vitamin D3) 50 mcg PO DAILY [CPAP AUTOPAP 6-20 cm water humidified AIR Sleep study done in 05/16/2024 revealing moderately severe obstructive sleep apnea with an AHI of 17 patient was advised CPAP therapy with auto PAP mode pressure setting 6-20 cm] dapagliflozin propanediol (Farxiga) 10 mg PO DAILY dapagliflozin propanediol (Farxiga) 10 mg PO DAILY kucssshhwlk-wqqjfwuvg-upqkeuqs 200-62.5-25 mcg (Trelegy Ellipta) 1 inh inhalation DAILY 90 days ipratropium-albuterol 0.5 mg-3 mg(2.5 mg base)/3 mL 3 mL inhalation BID 90 days isosorbide mononitrate ER 30 mg PO DAILY isosorbide mononitrate ER 60 mg PO DAILY latanoprost 0.005% 0 drps ophthalmic (eye) magnesium oxide 800 mg PO DAILY metoprolol tartrate 75 mg PO BID nebulizers As directed potassium chloride ER (Klor-Con M) 20 mEq PO BID propranolol 10 mg PO BID 90 days Taltz Autoinjector (ixekizumab) 80 mg subcut Q4W NS warfarin 7.5 mg See Protocol PO .QD Nursing Note pt came for meter to meter correlation, with increase in hand tremors he was still able to perform test- did however enc him to rest his hand and arm on table to assist should tremors increase. Risk Scores and Med list updated and reviewed with pt Warfarin education and food list packet for review given with instruction given with good understanding INR: 3.4 clinic meter and 3.4 pt meter in therapeutic range 2.5-3.5 Medications and supplements reviewed No changes in health, diet, medications, or supplements, Denies any signs and symptoms of bleeding or bruising or clotting. Bleeding, bruising, clotting discussed Nutritional guidance given Dose: keep same dose 7.5mg x 3 days/ 5mg x 4 days F/U INR: weekly Patient verbalizes understanding of instructions given Anti-Coag Initial Assessment Social Hx Patient Tobacco Use Status: Former Tobacco user Tobacco use type: Cigarette alcohol intake: current Alcohol intake frequency: a few times a week Questionnaires HAS-BLED Does the patient had uncontrolled Hypertension?: No Does the patient have renal disease?: No Does the patient have liver disease?: No Does the patient have a history of stroke?: No Has the patient had major bleeding or predisposition to bleeding?: No Does the patient have labile INRs?: Yes Is the patient over 65 years of age?: Yes Is the patient on medications that gives them a predisposition to bleeding?: Yes Does the patient use alcohol?: Yes (2-3 / week ) HAS-BLED Score: 4 CHADSVASC Age: 66-74 Gender: Male Does the patient have a history of CHF?: Yes Does the patient have a history of Hypertension?: No Does the patient have a history of Stroke/TIA/Thromboembolism?: No Does the patient have a history of Vascular Disease (prior MT, PAD or aortic plaque)?: Yes Does the patient have a history of Diabetes?: No CHADS VACS Score: 3 Christian Prediction Score Rsk VTE Active Cancer: No Previous VTE, excluding superficial vein thrombosis: No Reduced mobility: No Already known Thrombophilic Condition: No With-in last month Trauma and/or Surgery: No Elderly 70 year or older: No Heart and/or Respiratory Failure: Yes Acute Myocardial infarction and/or Ischemic Stroke: Yes Acute Infection and/or Rheumatologic Disorder: Yes (psoriasis) Obesity (BMI 30 or greater): Yes Ongoing Hormonal Treatment: No Score: 4 Christian Score less than 4; Low Risk of VTE Christian Score 4 or greater; High Risk of VTE Coding Level of Care Code Est Patient Level 2 Diagnoses Current use of anticoagulant therapy Z79.01 Comment meter to meter correlation and clean Results AMB INR Fingerstick AMB INR Fingerstick 3.4 Last Edit by Kami Westfall RN on 09/27/24 09:13 manual entry Assessment & Plan Assessment & Plan (1) Current use of anticoagulant therapy: Code(s): Z79.01 - custodial (current) use of anticoagulants Category: Medical
--- OUTSIDE RECORDS SUMMARY | 2024-09-27 09:16 | XMS_ITS | Clinical Summary ---
Author Organization [facility] Address [address] [place] [address] Phone Care Team Providers Care Direct Marketing Representative Name Role Phone Joey Shetty MD Primary Care Provider [phone] Allergies No known active allergies Medications isosorbide mononitrate (IMDUR) 60 mg 24 hr tablet Take 1 tablet (60 mg total) by mouth 1 (one) time each day in the morning. 3 Active isosorbide mononitrate (IMDUR) 30 mg 24 hr tablet TAKE 1 TABLET BY MOUTH IN THE EVENING 3 Active BUDESONIDE INHL Inhale into the [...] tablet Take 7.5 mg by mouth daily. [facility] managing coumadin Active propranoloL (INDERAL) 10 mg [...] (one) time each day. 90 tablet 3 5 Active Active Problems Problem Noted Date Diagnosed Date Pacemaker 08/21/2024 Overview (08/21/2024): March 29, 2018 status post successful implantation of Biotronik dual-chamber permanent pacemaker due to recurrent syncope with documented prolonged pauses with sick sinus syndrome by Dr. Wolfe at [facility] Assessment & Plan (08/21/2024 9:28 AM [...] Acute on chronic diastolic h eart failure (CMS/[facility] V24, CMS/HCC V28) 09/18/2022 Assessment & Plan [...] (one) time each day. Persistent atrial fibrillation ([facility] V24, CMS /[facility] V28) 11/27/2021 Assessment & Plan (08/21/2024 9:28 AM EDT): Persistent on last device check. Rate controlled. CHADSVASc 4. On warfarin for mechanical aortic valve. Continue with metoprolol and warfarin. Followed by non [facility] coumadin clinic. Orders: ECG 12 lead Ascending aortic aneurysm ([facility] V24) 11/14/19 21 Overview (08/21/2024): 1996 ascending aortic aneurysm resection [...] Encounters Date Type Department Care Team Description 09/16/2024 7:15 AM EDT Ancillary Procedure [facility] [address] [place] [address] 08/16/2024 1:40 PM EDT Office Visit [facility] [address] [place] [id number] Twan Tan NP Acute on chronic diastolic heart failure (CMS/HCC V24, CMS/HCC V28) (Primary Dx); Aneurysm of ascending aorta without rupture (CMS/HCC V24); Persistent atrial fibrillation (CMS/HCC V24, CMS/HCC V28); Coronary artery disease involving northway coronary artery of northway heart without angina pectoris; History of mechanical aortic valve replacement; Pacemaker; Essential hypertension; Dyslipidemia; SIENA on CPAP 08/13/2024 12:45 AM EDT Ancillary Procedure [facility] [address] [place] [id number] from Last 3 Months Medical History Medical [...] Description 03/23/2025 1:00 PM EST Ancillary Procedure [facility] [address] [facility] [address] [place] [address] Health Maintenance Due Date Last [...] Completed 02/02/2024, , 01/25/2022, Additional history exists COVID-19 Vaccine Completed 08/23/2024, , 01/30/2023, Additional history exists HIB Vaccines Aged Out [...] this topic Medical Devices Implanted Type Area Shoe Stock Associate Device Identifier Shelf Expiration Date Model / Serial / Lot Huong Terry 8 LianDesirae [id number] Implanted:03/11 (Quantity not on file) Cardiac Pacemaker [employer] EDWERNER 8 NARAYAN / [id number] / Procedures Procedure Name Priority Date/Time Associated Diagnosis Comments CARDIAC DEVICE CHECK- REMOTE- MURJ Routine 09/16/2024 7:13 AM EDT ECG 12-LEAD Routine 08/16/2024 1:56 PM EDT Persistent atrial fibrillation (CMS/HCC V24, CMS/HCC V28) CARDIAC DEVICE CHECK- REMOTE- MURJ Routine 08/13/2024 12:40 AM EDT COMPREHENSIVE METABOLIC PANEL Routine 03/30/2024 11:52 AM EST from Last 3 Months or Most Recently Relevant to Health Maintenance Results * Cardiac device check - Remote- MURJ (09/16/2024 7:13 AM EDT) Only the most recent of2 resultswithin the time period is included. Date Time Interrogation Session [id number] CV DEVICE CHECK Type Interrogation Session RemoteScheduled CV DEVICE CHECK Implantable Pulse Generator Shoe Stock Associate BIO CV DEVICE CHECK Implantable Pulse Generator Type IPG CV DEVICE CHECK Implantable Pulse Generator Model Mara BUSCH CV DEVICE CHECK Implantable Pulse Generator Serial Number [id number] CV DEVICE CHECK Implantable Pulse Generator Implant Date [id number] CV DEVICE CHECK Battery Remaining Percentage 45.00 CV DEVICE CHECK Battery Status Middle of Service CV DEVICE CHECK Ronak Statistic RA Percent Paced 2.00 CV DEVICE CHECK Ronak Statistic RV Percent Paced 69.00 CV DEVICE CHECK Atrial Tachy Statistic AT/AF [place] Percent 100.00 CV DEVICE CHECK Lead Channel Sensing Intrinsic Amplitude 2.500 CV DEVICE CHECK Lead Channel Impedance Value 449 CV DEVICE CHECK Lead Channel RA Pacing Threshold Date 2024-09-15 CV DEVICE CHECK Lead Channel Setting Pacing Amplitude 4.000 CV DEVICE CHECK Lead Channel Setting Pacing Pulse Width 0.4 CV DEVICE CHECK Lead Channel Sensing Intrinsic Amplitude 18.600 CV DEVICE CHECK Lead Channel Impedance Value 507 CV DEVICE CHECK Lead Channel RV Pacing Threshold Date 2024-09-15 CV DEVICE CHECK Lead Channel Setting Pacing [...] 160 CV DEVICE CHECK Date of Service 2024-09-28 CV DEVICE CHECK Anatomical Region Laterality Modality Device Interroga tion 09/15/2024 12:3 6 AM EDT Impressions 09/15/2024 10:54 AM EDT Normal Remote: No Events * Normal Device Function * Alerts or events: None * Battery: Battery is at 45%, * Sensing, impedance and thresholds reviewed * Programmed parameters reviewed * Presenting rhythm reviewed * Heart Rate Histograms reviewed * No significant changes noted Narrative Procedure Note Solomon Wolfe MD - 09/16/2024 IMPRESSION: Normal Remote: No Events * Normal Device Function * Alerts or events: None * Battery: Battery is at 45%, * Sensing, impedance and thresholds reviewed * Programmed parameters reviewed * Presenting rhythm reviewed * Heart Rate Histograms reviewed * No significant changes noted Solomon Wolfe MD CV IMPLANTABLE CARDIAC DEVICE PROCEDURES Final Result * ECG 12 lead (08/16/2024 1:56 PM EDT) Ventricular Rate ECG 78 BPM GEMUSE Atrial Rate 68 BPM GEMUSE QRS Duration 100 ms GEMUSE Q-T Interval 394 ms GEMUSE QTc 449 ms GEMUSE R D Hanis 54 degrees GEMUSE T D Hanis -76 degrees GEMUSE ECG Interpretation Atrial fibrillation [...] 08/16/2024 4:38 PM EDT us Twan Tan BLEACHING SUPERVISOR ECG ORDERABLES Final Resul t GEMUSE * (ABNORMAL) Comprehensive metabolic panel (03/30/2024 11:52 [...] AM EST Performed at: ??01 - [facility] [address] ??[id number] Roller Stainer: Jannie Hughes MD, Phone: ??[phone] us Solomon Nunez MD LAB BLOOD ORDERABLES Final Res ult [facility] 1 from Last 3 Months or Most Recently Relevant to Health Maintenance Insurance [employer] MED[employer]ARE Care Teams Direct Marketing Representative Relationship Specialty Start Date End Date Joey Shetty MD [address] [place] [address] Gisela [address] [facility] [place] [id number] PCP - General 08/03/13
--- OUTSIDE RECORDS SUMMARY | 2024-09-27 09:16 | XMS_ITS ---
Author Organization [facility] Address [address] [facility] [place] [address] Care Team Providers Care Sourcing Consultant Name Role Phone DiogenesPeytonnella Primary Care Provider Lilian Augustin Unavailable [phone] Allergies No Known Allergies REASON FOR VISIT At Risk Footcare, Painful Nail(s) aggravated by shoes and causing difficulty standing/walking. Medications Medication SIG (Take, Route, Frequency, Duration) Notes Start Date End Date Status Rosuvastatin Calcium 20 MG (Prior Auth#:[id number]) Oral for 90 Not-Taking dilTIAZem HCl ER Beads 180 MG 1 capsule Orally Once a day for 30 day(s) Not-Taking Otezla 30 MG (Prior Auth#:[id number]) Oral for 90 Not-Taking Humira Not-Taking Medrol 4 MG as directed Orally 02/22/2021 Not-Taking Albuterol Sulfate HFA 108 (90 Base) MCG/ACT (Prior Auth#:[id number]) Inhalation for 30 Active Amantadine HCl 100 MG Oral for 90 Days Active Advair Diskus 250-50 MCG/DOSE (Prior Auth#:[id number]) Inhalation for 90 Not-Taking Spiriva Respimat 2.5 MCG/ACT (Prior Auth#:[id number]) Inhalation for 30 Not-Taking Furosemide 20 MG as directed Orally O nce a day Not-Taking Magnesium Oxide 400 (241.3 Mg) MG (Prior Auth#:[id number]) Oral for 90 Active Isosorbide Mononitrate ER 30 MG (Prior Auth#:[id number]) Oral for 90 Active Propranolol HCl 10 MG (Prior Auth#:[id number]) Oral for 90 Active Warfarin Sodium 7.5 MG (Prior Auth#:[id number]) Oral for 90 Active Nebulizer Active Atorvastatin Calcium 40 MG (Prior Auth#:[id number]) Oral for 90 Active Aspirin Low Dose 81 MG (Prior Auth#:[id number]) Oral for 90 Active Metoprolol Tartrate 75 MG 1 tablet with food Orally Twice a day for 30 day(s) Active Carbidopa-Levodopa 25-100 MG (Prior Auth#:[id number]) Oral for 90 Active Meloxicam 7.5 MG (Prior Auth#:[id number]) Oral for 45 Active Taltz 40 MG/0.5ML 1 mL Subcutaneous Active Bumetanide 2 MG 1 tablet Orally Once a day Active Trelegy Ellipta Acti ve Social History Tobacco Use: Social History Observation Description Date Details (start date - stop date) Never Smoker NA - NA Tobacco use other than smoking: Question Answer Notes Are you an other tobacco user? No Tobacco Control (Standard) Question Answer Notes Tobacco use: Nonsmoker Vital Signs Height 6ft1in in 09/09/2024 Weight 220 lbs 09/09/2024 BMI 29.02 kg/m2 09/09/2024 Blood pressure systolic 120 mm Hg 09/10/19 25 Blood pressure diastolic 70 mm Hg 025 Encounters Encounter Location Date Provider Diagnosis [facility] [address] [address] 09/09/2024 Lilian Monte Atherosclerosis of chevak artery of both lower extremities, with unspecified presence of clinical manifestation I70.203 ; Tinea unguium B35.1 ; Pain in right toe(s) M79.674 and Pain in left toe(s) M79.675 Assessments Encounter Date Diagnosis (ICD Code) Assessment Notes Treatment Notes Treatment Clinical Notes Section Notes 09/09/2024 Atherosclerosis of chevak artery of both lower extremities, with unspecified presence of clinical manifestation (ICD-10 - I70.203) Q7(A), Q8(2B), Q9(1B,2C) 09/09/2024 Tinea unguium (ICD-10 - B35.1) 09/09/2024 Pain in right toe(s) (ICD-10 - M79.674) 09/09/2024 Pain in left toe(s) (ICD-10 - M79.675) Plan Of Treatment Next Appt Details Follow Up: 3 Months, Reason: Provider Name:Lilian ferris, 12/02/2024 11:15:00 AM, [address] [place], [address], Procedure Notes * Category Sub-Category Detail Notes Debride Nail 6-10 Nail debridement Due to the cl inical pathology outlined in the exam findings, performance of this nail treatment is medically necessary as its management by an unskilled/untrained nonprofessional would put this patients foot and overall health at risk. Therefore, debridement to affected nail(s), as described in exam ( T1, T2, T3, T4, T6, T7, T8, T9, ), was performed exclusively by the physician of record to reduce/remove overall nail length, girth, thickness, subungual debris, and necrotic tissue, by manual and/or electrical means through the use of a nail nipper and/or dremel-type wood grinder operator, to a more viable healthy [...] to maintain effectiveness in symptomatic relief - 76727 Keratoma Treatment Parring or Cutting o f Benign Hyperkeratotic Lesion(s) (-56) 2-4 Lesions - Due to the at risk nature of the patients medical condition as documented in the exam findings, performance of this keratoderma treatment is medically necessary as its management by an unskilled/untrained nonprofessional would put this patients foot and overall health at risk. Therefore, the benign hyperkeratotic lesions, ( 2 ) in total, locations as stated and described in the exam ( TA, T5), were pared, and/or cut utilizing a sterile 15 blade, tissue nippers, and/or power dremel instrumentation by the physician of record - 25449 Progress Notes * Eddie GASTON: [birth year] (69 yo M)Acc No.[id number]:09/09/2024 Progress Note Patient:?Eddie GASTON Provider:?Lilian Monte DPM :1955???Age:69 Y???Sex:Male Yvon e:09/09/2024 Address:[address] [place] [address] Agusto Cardoza [facility] Pcp:Joey Shetty Subjective: * Chief Complaints: * ???At Risk FootcarePainful N ail(s) aggravated by shoes and causing difficulty standing/walking. * HPI: ???At Risk footcare:?Pt States Last PCP Visit:?Date?06/11/2024 * ROS:?General/Constitutional:?Nausea?denies.?Vomiting?denies.?Hunger Thirst?denies.?Loss appetite?denies.?Chills?denies.?Fatigue?denies.?Fever?denies.?Night Sweats?denies.?Unexplained weight loss?denies.?Unexplained [...] ve 08/1996colonoscopy 05/31/21 * Hospitalization/Major Diagno stic Procedure:?[facility]- Having trouble breathing and retaining fluids - atypical pneumonia 06/03 * Family History:?Mother: karyn hernandez.?Father: .?Spouse: alive.? * Social History:?Tobacco Use:?Tobacco use other than smoking?Are you an other tobacco user??No ?Tobacco Control (Standard)?Tobacco use:?Nonsmoker ???Miscellaneous:?Caffeine: yes, frequency:, 1-2 cups per day. ?Children: yes, 1. ?Exercise: yes, walking, housework. ?Marital status: . ?Occupation: [employer] * Medications:?TakingBumetanid e 2 MG Tablet 1 tablet Orally Once a day Trelegy Ellipta Taltz 40 MG/0.5ML Solution Prefilled Syringe 1 mL Subcutaneous Aspirin Low Dose 81 MG Tablet Delayed Release (Prior Auth#:[id number]) Oral Atorvastatin Calcium 40 MG Tablet (Prior Auth#:[id number]) Oral Carbidopa-Levodopa 25-100 MG Tablet (Prior Auth#:[id number]) Oral Meloxicam 7.5 MG Tablet (Prior Auth#:[id number]) Oral Metoprolol Tartrate 75 MG Tablet 1 tablet with food Orally Twice a day Nebulizer Propranolol HCl 10 MG Tablet (Prior Auth#:[id number]) Oral Warfarin Sodium 7.5 MG Tablet (Prior Auth#:[id number]) Oral Magnesium Oxide 400 (241.3 Mg) MG Tablet (Prior Auth#:[id number]) Oral Isosorbide Mononitrate ER 30 MG Tablet Extended Release 24 Hour (Prior Auth#:[id number]) Oral Albuterol Sulfate HFA 108 (90 Base) MCG/ACT Aerosol Solution (Prior Auth#:[id number]) Inhalation Amantadine HCl 100 MG Tablet Oral Taking Bumetanide 2 MG Tablet 1 tablet Orally Once a day Taking Trelegy Ellipta Taking Taltz 40 MG/0.5ML Solution Prefilled Syringe 1 mL Subcutaneous Taking Aspirin Low Dose 81 MG Tablet Delayed Release (Prior Auth#:[id number]) Oral Taking Atorvastatin Calcium 40 MG Tablet (Prior Auth#:[id number]) Oral Taking Carbidopa-Levodopa 25-100 MG Tablet (Prior Auth#:[id number]) Oral Taking Meloxicam 7.5 MG Tablet (Prior Auth#:[id number]) Oral Taking Metoprolol Tartrate 75 MG Tablet 1 tablet with food Orally Twice a day Taking Nebulizer Taking Propranolol HCl 10 MG Tablet (Prior Auth#:[id number]) Oral Taking Warfarin Sodium 7.5 MG Tablet (Prior Auth#:[id number]) Oral Taking Magnesium Oxide 400 (241.3 Mg) MG Tablet (Prior Auth#:[id number]) Oral Taking Isosorbide Mononitrate ER 30 MG Tablet Extended Release 24 Hour (Prior Auth#:[id number]) Oral Taking Albuterol Sulfate HFA 108 (90 Base) MCG/ACT Aerosol Solution (Prior Auth#:[id number]) Inhalation Taking Amantadine HCl 100 MG Tablet Oral Not-Taking/PRNFurosemide 20 MG Tablet as directed Orally Once a day Advair Diskus 250-50 MCG/DOSE Aerosol Powder Breath Activated (Prior Auth#:[id number]) Inhalation Spiriva Respimat 2.5 MCG/ACT Aerosol Solution (Prior Auth#:[id number]) Inhalation Humira Medrol 4 MG Tablet Therapy Pack as directed Orally dilTIAZem HCl ER Beads 180 MG Capsule Extended Release 24 Hour 1 capsule Orally Once a day Otezla 30 MG Tablet (Prior Auth#:[id number]) Oral Rosuvastatin Calcium 20 MG Tablet (Prior Auth#:[id number]) Oral Medication List reviewed and reconciled with the patientNot-Taking/PRN Furosemide 20 MG Tablet as directed Orally Once a day Not-Taking/PRN Advair Diskus 250-50 MCG/DOSE Aerosol Powder Breath Activated (Prior Auth#:[id number]) Inhalation Not-Taking/PRN Spiriva Respimat 2.5 MCG/ACT Aerosol Solution (Prior Auth#:[id number]) Inhalation Not-Taking/PRN Humira Not-Taking/PRN Medrol 4 MG Tablet Therapy Pack as directed Orally Not-Taking/PRN dilTIAZem HCl ER Beads 180 MG Capsule Extended Release 24 Hour 1 capsule Orally Once a day Not-Taking/PRN Otezla 30 MG Tablet (Prior Auth#:[id number]) Oral Not-Taking/PRN Rosuvastatin Calcium 20 MG Tablet (Prior Auth#:[id number]) Oral Medication List reviewed and reconciled with the patient * Allergies:?N.K.D.A.yes[Aller gies Verified] Objective: * Vitals:?Ht: 6ft1in, Wt:220, BMI:29.02, Shoe size: 10, BP:120/70mm Hg, Ht-cm: 185.42 cm, Wt-k.79 kg. * Examination: ???Vascular: ?DP PULSES (B):?2/4, [...] Keratotic lesion(s) located at, Medial plantar, TA, T5.?Orthopedic: ?MUSCLE STRENGTH:?5/5 all groups in a symmetrical [...] today.?ORIENTED:?person, place, and time.? Assessment: * Assessment: 1.?Tinea unguium - B35.1 (Pr imary)???2.?Atherosclerosis of chevak artery of both lower extremities, with unspecified presence of clinical manifestation - I70.203???Notes :Q7(A), Q8(2B), Q9(1B,2C)???3.?Pain in right toe(s) - M79.674???4.?Pain in left toe(s) - M79.675??? Plan: * Treatment: * Procedures:?Debride Nail 6-10:?Nail debridement?Due to the clinical pathology outlined in the exam findings, performance of this nail treatment is medically necessary as its management by an unskilled/untrained nonprofessional would put this patients foot and overall health at risk. Therefore, debridement to affected nail(s), as described in exam ( T1, T2, T3, T4, T6, T7, T8, T9, ), was performed exclusively by the physician of record to reduce/remove overall nail length, girth, thickness, subungual debris, and necrotic tissue, by manual and/or electrical means through the use of a nail nipper and/or dremel-type wood grinder operator, to a more viable healthy [...] to maintain effectiveness in symptomatic relief - 41141.?Keratoma Treatment:?Parring or Cutting of Benign Hyperkeratotic Lesion(s)?(-56) 2-4 Lesions - Due to the at risk nature of the patients medical condition as documented in the exam findings, performance of this keratoderma treatment is medically necessary as its management by an unskilled/untrained nonprofessional would put this patients foot and overall health at risk. Therefore, the benign hyperkeratotic lesions, ( 2 ) in total, locations as stated and described in the exam (?TA,?T5), were pared, and/or cut utilizing a sterile 15 blade, tissue nippers, and/or power dremel instrumentation by the physician of record - 80626.? * Procedure Codes:?68569 DEBRI DE NAIL, 6 OR MORE, Modifiers: XS 74137 TRIM SKIN LESIONS, 2 TO 4, Modifiers: XS , Q8 * Follow Up:?3 Months * Images: * Sign off status: Completed true * Provider:?Lilian Monte, KEVIN Date:?06/2024 Generated for Jasper espana/Sowmya/Maryam on:?09/27/2024 09:16 AM EDT History and Physical Notes * HPI (History of Present Illness) Category Sub-Category Detail Notes Category Not es At Risk footcare Pt States Last PCP Visit: Date: Examination Category Sub-Category Detail Notes Category Not es Neurological SENSORY: Neurological exa m reveals intact sensorium, pain sensation normal, vibration sensation intact, pinprick sensation is normal in the lower extremities, Pt denies, anesthesia, burning, paresthesia, tingling, B/L Dermatologic SKIN FINDINGS: Skin exam reveal s Keratotic lesion(s) located at, Medial plantar, TA, T5 Orthopedic MUSCLE STRENGTH: 5/5 all groups in [...]
--- OUTSIDE RECORDS SUMMARY | 2024-09-27 09:16 | XMS_ITS | Patient Health Record ---
Author Organization [facility] Address [address] [facility] [place] [address] Care Team Providers Care Paint Tinter Name Role Phone Joey Shetty Primary Care Provider Lilian Augustin Unavailable [phone] Allergies No Known Allergies Reason For Referral No Information Medications Medication SIG (Take, Route, Frequency, Duration) Notes Start Date End Date Status Propranolol HCl 10 MG (Prior Auth#:[id number]) Oral for 90 Active dilTIAZem HCl ER Beads 180 MG 1 capsule Orally Once a day for 30 day(s) Not-Taking Warfarin Sodium 7.5 MG (Prior Auth#:[id number]) Oral for 90 Active Otezla 30 MG (Prior Auth#:[id number]) Oral for 90 Not-Taking Metoprolol Tartrate 75 MG 1 tablet with food Orally Twice a day for 30 day(s) Active Humira Not-Taking Nebulizer Active Medrol 4 MG as directed Orally 02/22/2021 Not-Taking Carbidopa-Levodopa 25-100 MG (Prior Auth#:[id number]) Oral for 90 Active Advair Diskus 250-50 MCG/DOSE (Prior Auth#:[id number]) Inhalation for 90 Not-Taking Meloxicam 7.5 MG (Prior Auth#:[id number]) Oral for 45 Active Spiriva Respimat 2.5 MCG/ACT (Prior Auth#:[id number]) Inhalation for 30 Not-Taking Furosemide 20 MG as directed Orally O nce a day Not-Taking Atorvastatin Calcium 40 MG (Prior Auth#:[id number]) Oral for 90 Active Taltz 40 MG/0.5ML 1 mL Subcutaneous Active Albuterol Sulfate HFA 108 (90 Base) MCG/ACT (Prior Auth#:[id number]) Inhalation for 30 Active Aspirin Low Dose 81 MG (Prior Auth#:[id number]) Oral for 90 Active Amantadine HCl 100 MG Oral for 90 Days Active Bumetanide 2 MG 1 tablet Orally Once a day Active Magnesium Oxide 400 (241.3 Mg) MG (Prior Auth#:[id number]) Oral for 90 Active Rosuvastatin Calcium 20 MG (Prior Auth#:[id number]) Oral for 90 Not-Taking Trelegy Ellipta Acti ve Isosorbide Mononitrate ER 30 MG (Prior Auth#:[id number]) Oral for 90 Active Immunizations Vaccine Route Administration Date Status [...] Problem Acquired hammer toe of right foot (6697521692885987) Other hammer toe(s) (acquired), right foot (M20.41) Active confirmed Problem 967634169 Peripheral vascular disease (I73.9) Active confirmed Problem 589901549 Psoriatic arthritis (L40.50) Active confirmed Possible Problem 539783544428865 Osteoarthritis o f right ankle and foot (M19.071) Active confirmed Problem 72276485 Osteoarthritis o f left ankle and foot (M19.072) Active confirmed Problem Bilateral atherosclerosis of arteries of lower limbs (disorder) (61622690671386334 ) Atherosclerosis of [place] artery of both lower extremities, with unspecified presence of clinical manifestation (I70.203) Active confirmed Q7(A), Q8(2B), Q9(1B,2C) Problem 0243359153096595 Gouty arthritis of left foot (M10.9) Active confirmed Problem Localized, primary osteoarthritis of the ankle and/or foot (982105406) Arthritis of joint of lesser toe, right (M19.071) Active confirmed Vital Signs Blood pressure diastolic 70 mm Hg 09/09/2024 Height 6ft1in in 09/09/2024 Blood pressure systolic 120 mm Hg 09/09/2024 Weight 220 lbs 09/09/2024 BMI 29.02 kg/m2 09/09/2024 Encounters Encounter Location Date Provider Diagnosis [address] [address] 11/11/2023 Lilian Perica Tinea unguium B35.1 ; Pain in right toe(s) M79.674 and Pain in left toe(s) M79.[address] [address] 12/22/2023 Lilian Perica Ingrown nail L60.[address] [address] 01/21/2024 Lilian Perica Tinea unguium B35.1 ; Pain in right toe(s) M79.674 and Pain in left toe(s) M79.[address] [address] 04/01/2024 Lilian Perica Tinea unguium B35.1 ; Other hammer toe(s) (acquired), right foot M20.41 ; Pain in right toe(s) M79.674 ; Pain in left toe(s) M79.675 and Arthritis of joint of lesser toe, right M19.[address] [address] 06/17/2024 Lilian Perica Atherosclerosis of [place] artery of both lower extremities, with unspecified presence of clinical manifestation I70.203 ; Peripheral vascular disease I73.9 ; Tinea unguium B35.1 ; Pain in right toe(s) M79.674 and Pain in left toe(s) M79.[address] [address] 09/09/2024 Lilian Monte Atherosclerosis of [place] artery of both lower extremities, with unspecified presence of clinical manifestation I70.203 ; Tinea unguium B35.1 ; Pain in right toe(s) M79.674 and Pain in left toe(s) M79.675 Assessments Encounter Date Diagnosis (ICD Code) Assessment Notes Treatment Notes Treatment Clinical Notes Section Notes 12/22/2023 Ingrown nail (ICD-10 - L60.0) 01/21/2024 Tinea unguium (ICD-10 - B35.1) 11/11/2023 Tinea unguium (ICD-10 - B35.1) 04/01/2024 Tinea unguium (ICD-10 - B35.1) 04/01/2024 Other hammer toe(s) (acquired), right foot (ICD-10 - M20.41) 06/17/2024 Peripheral vascular disease (ICD-10 - I73.9) 06/17/2024 Atherosclerosis of [place] artery of both lower extremities, with unspecified presence of clinical manifestation (ICD-10 - I70.203) Q7(A), Q8(2B), Q9(1B,2C) 09/09/2024 Tinea unguium (ICD-10 - B35.1) 09/09/2024 Atherosclerosis of [place] artery of both lower extremities, with unspecified presence of clinical manifestation (ICD-10 - I70.203) Q7(A), Q8(2B), Q9(1B,2C) 09/09/2024 Pain in right toe(s) (ICD-10 - M79.674) 06/17/2024 Tinea unguium (ICD-10 - B35.1) 04/01/2024 Pain in right toe(s) (ICD-10 - M79.674) 11/11/2023 Pain in right toe(s) (ICD-10 - M79.674) 01/21/2024 Pain in right toe(s) (ICD-10 - M79.674) 01/21/2024 Pain in left toe(s) (ICD-10 - M79.675) 11/11/2023 Pain in left toe(s) (ICD-10 - M79.675) 04/01/2024 Pain in left toe(s) (ICD-10 - M79.675) 06/17/2024 Pain in right toe(s) (ICD-10 - M79.674) 09/09/2024 Pain in left toe(s) (ICD-10 - M79.675) 06/17/2024 Pain in left toe(s) (ICD-10 - M79.675) 04/01/2024 Arthritis of joint of lesser toe, right (ICD-10 - M19.071) Plan Of Treatment Pending Test Test Name Order Date *Uric Acid, Serum 02/22/2021 X ray : Foot, right 3V 10/03/2020 Next Appt Details Provider Name:Lilian ferris, 12/02/2024 11:15:00 AM, [address] [place], [address], Insurance Providers Payer Name Payer Address Payer Phone Subscriber Number Group Number Insured Name Patient Relationship to Insured Coverage Start Date Coverage End Date [employer] Medicare [id number] [address] [address] [place] [address] [phone] [id number] Eddie Styles Self - patient is the insured Medical (General) History Medical History History ICD Code Anxiety Heart disease Lung disease Psoriasis/eczema Measles Chicken pox Mumps Vascular grafts Joint implants/screws Replacement Heart Valves Surgical History Surgery Date(Month/Year) aortic valve 08/1996 colonoscopy 05/31/21 Hospitalization History Reason Date(Month/Year) [facility]- Having trouble breathing and retaining fluids - atypical pneumonia 06/03
--- OUTSIDE RECORDS SUMMARY | 2024-09-27 09:16 | XMS_ITS ---
Author Organization [facility] Susie benavidez Billing Info Address [address] [place] [address] Care Team Providers Care Plumbing Drafter Name Role Phone BOGDAN FERGUSON Primary Care Provider [phone] SUNNYERICA Unavailable [phone] Allergies No Known Allergies REASON FOR VISIT [...] 06/24/2023 Encounters Encounter Location Date Provider [id number] [address] [id number] 06/24/2023 ERICA CORREA Hypokalemia E87.6 ; Acute [...] Test Test Name Order Date BASIC METABOLIC PANEL([facility]) 2023 Next Appt Details Follow Up: 4 Weeks, Reason: f/up HF clinic Progress Notes * MARILIN Eddie SolaresDOB: [birth year] (67 yo M)Acc No.[id number]:06/24/2023 PROGRESS NOTE Patient:?Eddie GASTON Provider:?ERICA CORREA MD :1955???Age:67 Y???Sex:Male Yvon e:06/24/2023 ?N#:[id number] Address:[address] [place] [address] [facility] Pcp:BOGDAN FERGUSON Subjective: * Chief Complaints: * [...] or a close contact traveled outside the [facility] and you are now ill??No [...] follow up. He was initially admitted to [facility] on 05/12/2023 for for a [...] or syncope. He plans to remain in [place] until 08/10/23 when he returns home to [place]. * ROS:?CARDIOLOGY:?Constitutional:?Negative for: fever, chills or headaches..?Cardiovascular:?Negative [...] %:94. * ???Past Orders: ???Lab:BASIC METABOLIC PANEL ([facility]) (Order Date - 06/17/2023) (Collection [...] CORREA MD Date:?06/11 Generated for Jasper espana/Sowmya/eTransmitting on:?09/27/2024 09:16 AM EDT History and Physical Notes * HPI (History of Present Illness) Category Sub-Category Detail Notes Category Not es Patient History Mr. Gaston presents today for follow up. He was initially admitted to [facility] on 05/12/2023 for for a [...] or syncope. He plans to remain in [place] until 08/10/23 when he returns home to [place]. First Point of Contact Screening Do any [...]
--- OUTSIDE RECORDS SUMMARY | 2024-09-27 09:17 | XMS_ITS | Data Portability ---
Author Organization [place] - [facility] Address [address] [place] [address] Care Team Providers Care Coal Cager Name Role Phone HUE STEWART Primary Care Provider [phone] Assessment No assessment recorded. Plan of Treatment [...] Time Sensorineural hearing loss of bilateral ears [id number] Active 2023 JOEL Rojas MD [address] [place] [address], [address], [facility] 09:33:49 Problem Notes None recorded. Procedures Surgical History Date Name Laterality Status Provider Name and Address Organization Details Recorded Time 04/11/2024 Comp Audio with Tymps - 23668 & 24467 completed CARLOZ GRIFFIN, AUD [address] [address], [place], [address], [facility] 04/11/2024 09:52:08 Imaging Results Imaging Date Name Status LastModified by [facility] Details LastModified Time 04/11/2024 audiogram [...] Updated DateTime 04/11/2024 185.42 cm 31 kg/m2 433514.21 g Kevin Rich [place] - [facility] 04/11/2024 09:21:01 Social History None recorded. Functional Status None recorded. Mental Status None recorded. Family History Nothing Reported. Medical History Condition Response Heart Problems Y Past Encounters Encounter ID Performer Location Encounter Start Date Encounter Closed Date Diagnosis/Indication Diagnosis SNOMED-CT Code Diagnosis ICD10 Code Diagnosis Note [id number] JOEL ANDERSON MD [facility] on [address] [place] [address] 04/11/2024 08:53:39 04/11/2024 10:11:29 Sensorineural hearing loss of bilateral ears 846312294 H90.3 Rechecked audio today (Pringle and Rinlarry were normal).Au diological evaluation results: 04/11/2024 [facility] ear:{{Norm al* Normal through 2 kHz Mild [...] Recorded Advance Directives Directive None Recorded Payers Insurance Date Sequence Insurance Name Policy Number Policy Vivas Covered Member ID Vivas Member ID Guarantor Name 04/11/2024 1 [facility] (MEDICARE REPLACEMENT/A DVANTAGE - PPO) [id number] Eddie Styles [id number] Eddie Styles Notes Date Note Type Note [...] despite this hearing loss. JOEL ANDERSON MD [address] [place] [address], [place], [address], [facility] - [facility] 04/11/2024 10:10:32
--- OUTSIDE RECORDS SUMMARY | 2024-09-27 09:17 | XMS_ITS ---
Author Organization [facility] Address [address] [place] [address] Care Team Providers Care Stringing Machine Tender Name Role Phone DiogenesPeytonnella Primary Care Provider Lilian Augustin Unavailable [phone] Allergies No Known Allergies REASON FOR VISIT At Risk Footcare, Painful Nail(s) aggravated by shoes and causing difficulty standing/walking. Medications Medication SIG (Take, Route, Frequency, Duration) Notes Start Date End Date Status Otezla 30 MG (Prior Auth#:[id number]) Oral for 90 Not-Taking dilTIAZem HCl ER Beads 180 MG 1 capsule Orally Once a day for 30 day(s) Not-Taking Rosuvastatin Calcium 20 MG (Prior Auth#:[id number]) Oral for 90 Not-Taking Humira Not-Taking Medrol 4 MG as directed Orally 02/22/2021 Not-Taking Spiriva Respimat 2.5 MCG/ACT (Prior Auth#:[id number]) Inhalation for 30 Not-Taking Advair Diskus 250-50 MCG/DOSE (Prior Auth#:[id number]) Inhalation for 90 Not-Taking Isosorbide Mononitrate ER 30 MG (Prior Auth#:[id number]) Oral for 90 Active Magnesium Oxide 400 (241.3 Mg) MG (Prior Auth#:[id number]) Oral for 90 Active Albuterol Sulfate HFA 108 (90 Base) MCG/ACT (Prior Auth#:[id number]) Inhalation for 30 Active Nebulizer Active Warfarin Sodium 7.5 MG (Prior Auth#:[id number]) Oral for 90 Active Propranolol HCl 10 MG (Prior Auth#:[id number]) Oral for 90 Active Metoprolol Tartrate 75 MG 1 tablet with food Orally Twice a day for 30 day(s) Active Meloxicam 7.5 MG (Prior Auth#:[id number]) Oral for 45 Active Taltz 40 MG/0.5ML 1 mL Subcutaneous Active Atorvastatin Calcium 40 MG (Prior Auth#:[id number]) Oral for 90 Active Aspirin Low Dose 81 MG (Prior Auth#:[id number]) Oral for 90 Active Furosemide 20 MG as directed Orally O nce a day Not-Taking Carbidopa-Levodopa 25-100 MG (Prior Auth#:[id number]) Oral for 90 Active Bumetanide 2 MG [...] W/U Status Risk Notes Problem Atherosclerosis of [place] artery of both lower extremities, with unspecified presence of clinical manifestation (I70.203) Active confirmed Q7(A), Q8(2B), Q9(1B,2C ) Problem [id number] Peripheral vascu lar disease (I73.9) Active confirmed Vital Signs Height 6ft1in in 06/17/2024 Weight 230 lbs 06/17/2024 BMI 30.34 kg/m2 06/17/2024 Blood pressure systolic 120 mm Hg 06/17/19 25 Blood pressure diastolic 70 mm Hg 025 Encounters Encounter Location Date Provider Diagnosis [facility] [place] [address] 06/17/2024 Lilian Monte Atherosclerosis of [place] artery of both lower extremities, with unspecified presence of clinical manifestation I70.203 ; Peripheral vascular disease I73.9 ; Tinea unguium B35.1 ; Pain in right toe(s) M79.674 and Pain in left toe(s) M79.675 Assessments Encounter Date Diagnosis (ICD Code) Assessment Notes Treatment Notes Treatment Clinical Notes Section Notes 06/17/2024 Atherosclerosis of [place] artery of both lower extremities, with unspecified presence of clinical manifestation (ICD-10 - I70.203) Q7(A), Q8(2B), Q9(1B,2C) 06/17/2024 Peripheral vascular disease (ICD-10 - I73.9) 06/17/2024 Tinea unguium (ICD-10 - B35.1) 06/17/2024 Pain in right toe(s) (ICD-10 - M79.674) 06/17/2024 Pain in left toe(s) (ICD-10 - M79.675) Plan Of Treatment Next Appt Details Follow Up: 3 Months, Reason: Provider Name:Lilian ferris, 12/02/2024 11:15:00 AM, [address] [place] [address], [address], Procedure Notes * Category Sub-Category Detail Notes [...] to maintain effectiveness in symptomatic relief - 07594 Keratoma Treatment Parring or Cutting o f [...] instrumentation by the physician of record - 92794 Progress Notes * Eddie GASTONDOB: [birth year] (68 yo M)Acc No.[id number]:06/17/2024 Progress Note Patient:?Eddie GASTON Provider:?Lilian Monte DPM :1955???Age:68 Y???Sex:Male Yvon e:06/17/2024 Address:[address] [place] [address] Agusto Cardo[facility] Pcp:Joey Shetty Subjective: * Chief Complaints: * [...] ve 08/1996colonoscopy 05/31/21 * Hospitalization/Major Diagno stic Procedure:?[facility]- Having trouble breathing and retaining fluids - atypical pneumonia 06/03 * Family History:?Mother: karyn hernandez.?Father: .?Spouse: alive.? * Social History:?Tobacco Use:?Tobacco use other than smoking?Are you an other tobacco user??No ?Tobacco Control (Standard)?Tobacco use:?Nonsmoker ???Miscellaneous:?Caffeine: yes, frequency:, 1-2 cups per day. ?Children: yes, 1. ?Exercise: yes, walking, housework. ?Marital status: . 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 * Medications:?TakingBumetanid e 2 MG Tablet 1 tablet Orally Once a day Trelegy Ellipta Taltz 40 MG/0.5ML Solution Prefilled Syringe 1 mL Subcutaneous Aspirin Low Dose 81 MG Tablet Delayed Release (Prior Auth#:[id number]) Oral Atorvastatin Calcium 40 MG Tablet (Prior Auth#:[id number]) Oral Carbidopa-Levodopa 25-100 MG Tablet (Prior Auth#:[id number]) Oral Meloxicam 7.5 MG Tablet (Prior Auth#:[id number]) Oral Metoprolol Tartrate 75 MG Tablet 1 tablet with food Orally Twice a day Nebulizer Propranolol HCl 10 MG Tablet (Prior Auth#:[id number]) Oral Warfarin Sodium 7.5 MG Tablet (Prior Auth#:[id number]) Oral Magnesium Oxide 400 (241.3 Mg) MG Tablet (Prior Auth#:[id number]) Oral Isosorbide Mononitrate ER 30 MG Tablet Extended Release 24 Hour (Prior Auth#:[id number]) Oral Albuterol Sulfate HFA 108 (90 Base) MCG/ACT Aerosol Solution (Prior Auth#:[id number]) Inhalation Taking Bumetanide 2 MG Tablet 1 tablet Orally Once a day Taking Trelegy Ellipta Taking Taltz 40 MG/0.5ML Solution Prefilled Syringe 1 mL Subcutaneous Taking Aspirin Low Dose 81 MG Tablet Delayed Release (Prior Auth#:[id number]) Oral Taking Atorvastatin Calcium 40 MG Tablet (Prior Auth#:[id number]) Oral Taking Carbidopa-Levodopa 25-100 MG Tablet (Prior Auth#:[id number]) Oral Taking Meloxicam 7.5 MG Tablet (Prior Auth#:[id number]) Oral Taking Metoprolol Tartrate 75 MG Tablet 1 tablet with food Orally Twice a day Taking Nebulizer Taking Propranolol HCl 10 MG Tablet (Prior Auth#:[id number]) Oral Taking Warfarin Sodium 7.5 MG Tablet (Prior Auth#:[id number]) Oral Taking Magnesium Oxide 400 (241.3 Mg) MG Tablet (Prior Auth#:[id number]) Oral Taking Isosorbide Mononitrate ER 30 MG Tablet Extended Release 24 Hour (Prior Auth#:[id number]) Oral Taking Albuterol Sulfate HFA 108 (90 Base) MCG/ACT Aerosol Solution (Prior Auth#:[id number]) Inhalation Not-Taking/PRNFurosemide 20 MG Tablet as directed Orally Once a day Advair Diskus 250-50 MCG/DOSE Aerosol Powder Breath Activated (Prior Auth#:[id number]) Inhalation Spiriva Respimat 2.5 MCG/ACT Aerosol Solution (Prior Auth#:[id number]) Inhalation Humira Medrol 4 MG Tablet Therapy Pack as directed Orally dilTIAZem HCl ER Beads 180 MG Capsule Extended Release 24 Hour 1 capsule Orally Once a day Otezla 30 MG Tablet (Prior Auth#:[id number]) Oral Rosuvastatin Calcium 20 MG Tablet (Prior Auth#:[id number]) Oral Medication List reviewed and reconciled with the patientNot-Taking/PRN Furosemide 20 MG Tablet as directed Orally Once a day Not-Taking/PRN Advair Diskus 250-50 MCG/DOSE Aerosol Powder Breath Activated (Prior Auth#:[id number]) Inhalation Not-Taking/PRN Spiriva Respimat 2.5 MCG/ACT Aerosol Solution (Prior Auth#:[id number]) Inhalation Not-Taking/PRN Humira Not- Taking/PRN Medrol 4 MG Tablet Therapy Pack as directed Orally Not-Taking/PRN dilTIAZem HCl ER Beads 180 MG Capsule Extended Release 24 Hour 1 capsule Orally Once a day Not-Taking/PRN Otezla 30 MG Tablet (Prior Auth#:[id number]) Oral Not- Taking/PRN Rosuvastatin Calcium 20 MG Tablet (Prior Auth#:[id number]) Oral Medication List reviewed and reconciled with [...] vascular disea se - I73.9 (Primary)???2.?Atherosclerosis of [place] artery of both lower extremities, with unspecified [...] to maintain effectiveness in symptomatic relief - 53667.?Keratoma Treatment:?Parring or Cutting of Benign Hyperkeratotic Lesion(s)?(-56) [...] instrumentation by the physician of record - 21187.? * Procedure Codes:?65115 DEBRI DE NAIL, 6 OR MORE, Modifiers: XS 52493 TRIM SKIN LESIONS, 2 TO 4, Modifiers: [...] Monte DPM Date:?11/2024 Generated for Jasper espana/Sowmya/Darrylitting on:?09/27/2024 09:17 AM EDT History and Physical Notes * [...]
--- OUTSIDE RECORDS SUMMARY | 2024-09-27 09:17 | XMS_ITS ---
Author Organization [facility] Billing Info Address [address] [place] [address] Care Team Providers Care Cotton Converter Name Role Phone BOGDAN FERGUSON Primary Care Provider JEEVAN VALENZUELA Prashant [phone] Allergies No Known Allergies REASON FOR VISIT [...] Problem Status W/U Status Risk Notes Problem [id number] Obesity (BMI 30-39.9) (E66.9) Active confirmed Vital Signs Height 73 in 07/22/2023 Weight 229.8 lbs 07/22/2023 BMI 30.32 kg/m2 07/22/2023 Blood pressure systolic 113 mm Hg 07/22/19 Blood pressure diastolic 76 mm Hg 024 Heart Rate 72 /min 07/22/2023 Oximetry 98 07/22/2023 Encounters Encounter Location Date [id number] [address] [id number] 07/22/2023 JEEVAN VALENZUELA Hypokalemia E87.6 ; Acute [...] normally with limited visualization. 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. [facility]. Plan Of Treatment Treatment Notes Assessment [...] Name Order Date Basic Metabolic Panel (8) ([id number] ) 07/22/2023 Next Appt Details Follow Up: PRN, Reason: Progress Notes * Eddie GASTON BeckDOB: [birth year] (68 yo M)Acc No.[id number]:07/22/2023 PROGRESS NOTE Patient:?Eddie GASTON Appointment Provider:?JEEVAN VALENZUELA PA-C :1955???Age:68 Y???Sex:Male Sup ervising Provider:ERICA CORREA MD Date:07/22/2023 ?N#:[id number] Address:[address] [place], [place] [address]andrés CardozaAgusto, [facility] Pcp:BOGDAN FERGUSON Subjective: * Chief Complaints: * [...] follow up. He was initially admitted to [facility] on 05/12/2023 for for a [...] or syncope. He plans to remain in [place] until 08/10/23 when he returns home to [place]. 07/22/23: RTC today after 4 weeks on therapy; he has been doing great.? No signficiant peripheral edema. No sob or orthpnea. no return visits to the ED. No changes in his weight.? He plans to return home to [place] in 2 weeks. * ROS:?CARDIOLOGY:?Constitutional:?Negative for: fever, [...] * Treatment: 2.?Hypokalemia?LAB: Basic Metabolic Panel (8) ([id number]) (Ordered for 07/22/2023) Notes: patients potassium was [...] with limited visualization.?? 4.?Others? 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.?? * Procedure Codes:? * Preventive Medicine:? [...] 10:04:16* Electronically co[place], [id number] on 07/24/2023 at 10:04 AM EDT Sign off status: Completed true * Appointment Provider:?MARIANNE VALENZUELA PA-C Date:?07/22/2023 Generated for Printing/Faxing/eTransmitting on:?09/27/2024 09:17 AM EDT History and Physical Notes * HPI (History of Present Illness) Category Sub-Category Detail Notes Category Not es Patient History Mr. Gaston presents today for follow up. He was initially admitted to [facility] on 05/12/2023 for for a [...] or syncope. He plans to remain in [place] until 08/10/23 when he returns home to [place]. 07/22/23: RTC today after 4 weeks on therapy; he has been doing great. No signficiant peripheral edema. No sob or orthpnea. no return visits to the ED. No changes in his weight. He plans to return home to [place] in 2 weeks. First Point of Contact Screening Do any of the following apply to you? New rash or open sores: No Fever and/or chills in the past 7 days: No Cough: No Muscle or body aches (other than from an injury): No Sore throat: No In the past 3 weeks, have yo u or a close contact traveled outside the [facility] and you are now ill? : [...]
--- OUTSIDE RECORDS SUMMARY | 2024-09-27 09:17 | XMS_ITS ---
Author Organization [facility] Billing Info Address [address] [place] [address] [place] [address] Care Team Providers Care Supervisor Cigar Making Hand Name Role Phone BOGDAN FERGUSON Primary Care Provider JEEVAN VALENZUELA [phone] REASON FOR VISIT refill Potassium Medications Medication SIG (Take, Route, Frequency, Duration) Notes Start Date End Date Status Potassium Chloride ER 20 MEQ 1 tablet with food Orally twice per day for 90 days Active Encounters Encounter Location Date Provider [id number] [address] [id number] 09/10/2023 JEEVAN VALENZUELA Hypokalemia E87.6 Assessments Encounter Date Diagnosis (ICD Code) Assessment Notes Treatment Notes Treatment Clinical Notes Section Notes 09/10/2023 Hypokalemia (ICD-10 - E87.6) Plan Of Treatment Medication Medication Name Sig Start Date Stop Date Notes Potassium Chloride ER 20 MEQ 1 tablet wi th food Orally twice per day for 90 days Progress Notes * Eddie GASTONDOB: [birth year] (68 yo M)Acc No.[id number]:09/10/2023 Patient:?Eddie GASTON :1955???Age:68 Y???Sex:Male Address:[address] [place] [address] [place], [address] * Refills? Refill Potassium Chloride ER Tablet Extended Release, 20 MEQ, Orally, 180, 1 tablet with food, twice per day, 90 days, Refills=1 * true * Date:? Generated for Jasper espana/Sowmya/Darrylitting on:?09/27/2024 09:16 AM EDT
--- OUTSIDE RECORDS SUMMARY | 2024-09-27 09:17 | XMS_ITS ---
Author Organization [facility] Address [address] [place] [address] Care Team Providers Care Television News Anchor Name Role Phone Joey Shetty Primary Care Provider Lilian Augustin Unavailable [phone] Allergies No Known Allergies REASON FOR VISIT Painful nail(s) aggrevated by shoes causing difficulty standing/walking, Painful Toe(s) Medications Medication SIG (Take, Route, Frequency, Duration) Notes Start Date End Date Status Magnesium Oxide 400 (241.3 Mg) MG (Prior Auth#:[id number]) Oral for 90 Active Advair Diskus 250-50 MCG/DOSE (Prior Auth#:[id number]) Inhalation for 90 Active Spiriva Respimat 2.5 MCG/ACT (Prior Auth#:[id number]) Inhalation for 30 Active dilTIAZem HCl ER Beads 180 MG 1 capsule Orally Once a day for 30 day(s) Not-Taking Otezla 30 MG (Prior Auth#:[id number]) Oral for 90 Not-Taking Meloxicam 7.5 MG (Prior Auth#:[id number]) Oral for 45 Active Propranolol HCl 10 MG (Prior Auth#:[id number]) Oral for 90 Active Warfarin Sodium 7.5 MG (Prior Auth#:[id number]) Oral for 90 Active Metoprolol Tartrate 75 MG 1 tablet with food Orally Twice a day for 30 day(s) Active Nebulizer Active Furosemide 20 MG as directed Orally O nce a day Active Medrol 4 MG as directed Orally 02/22/2021 Not-Taking Atorvastatin Calcium 40 MG (Prior Auth#:[id number]) Oral for 90 Active Carbidopa-Levodopa 25-100 MG (Prior Auth#:[id number]) Oral for 90 Active Aspirin Low Dose 81 MG (Prior Auth#:[id number]) Oral for 90 Active Isosorbide Mononitrate ER 30 MG (Prior Auth#:[id number]) Oral for 90 Active Albuterol Sulfate HFA 108 (90 Base) MCG/ACT (Prior Auth#:[id number]) Inhalation for 30 Active Taltz 40 MG/0.5ML 1 mL Subcutaneous Active Rosuvastatin Calcium 20 MG (Prior Auth#:[id number]) Oral for 90 Not-Taking Humira Not-Taking Social [...] Problem Acquired hammer toe of right foot ([id number] 105) Other hammer toe(s) (acquired), right foot (M20.41) Active confirmed Problem Arthritis of joint of lesser toe, right (M19.071) Active confirmed Vital Signs Height 6ft 1in in 04/01/2024 Weight 232 lbs 04/01/2024 BMI 30.61 kg/m2 04/01/2024 Blood pressure systolic 120 mm Hg 04/01/20 24 Blood pressure diastolic 70 mm Hg 024 Encounters Encounter Location Date Provider Diagnosis [facility] [place] [address] [place] [address] 04/01/2024 Lilian Monte Tinea unguium B35.1 ; [...] Up: 2 Months, Reason: Provider Name:Lilian ferris, 12/02/2024 11:15:00 AM, [address] [place] [address], [address], Procedure Notes * Category Sub-Category Detail Notes [...] use of a nail nipper and/or dremel-type gold nib grinder, to a more viable healthy nail [...] to maintain effectiveness in symptomatic relief - 19330 Progress Notes * Eddie GASTONDOB: [birth year] (68 yo M)Acc No.[id number]:04/01/2024 Progress Note Patient:?Eddie GASTON J Provider:?Lilian Monte DPM :1955???Age:68 Y???Sex:Male Yvon e:04/01/2024 Address:[address] [place], [place] [address], [place] Pcp:Joey Shetty Subjective: * Chief Complaints: * [...] ve 08/1996colonoscopy 05/31/21 * Hospitalization/Major Diagno stic Procedure:[facility]- Having trouble breathing and retaining fluids - atypical pneumonia 06/03 * Family History:?Mother: karyn hernandez.?Father: .?Spouse: alive.? * Social History:?Tobacco Use:?Tobacco Use/Smoking?Are [...] yes, walking, housework. ?Marital status: . 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 * Medications:?TakingTaltz 40 MG/0.5ML Solution Prefilled Syringe 1 mL Subcutaneous Aspirin Low Dose 81 MG Tablet Delayed Release (Prior Auth#:[id number]) Oral Atorvastatin Calcium 40 MG Tablet (Prior Auth#:[id number]) Oral Carbidopa- Levodopa 25-100 MG Tablet (Prior Auth#:[id number]) Oral Furosemide 20 MG Tablet as directed Orally Once a day Meloxicam 7.5 MG Tablet (Prior Auth#:[id number]) Oral Metoprolol Tartrate 75 MG Tablet 1 tablet with food Orally Twice a day Nebulizer Propranolol HCl 10 MG Tablet (Prior Auth#:[id number]) Oral Warfarin Sodium 7.5 MG Tablet (Prior Auth#:[id number]) Oral Advair Diskus 250-50 MCG/DOSE Aerosol Powder Breath Activated (Prior Auth#:[id number]) Inhalation Spiriva Respimat 2.5 MCG/ACT Aerosol Solution (Prior Auth#:[id number]) Inhalation Magnesium Oxide 400 (241.3 Mg) MG Tablet (Prior Auth#:[id number]) Oral Isosorbide Mononitrate ER 30 MG Tablet Extended Release 24 Hour (Prior Auth#:[id number]) Oral Albuterol Sulfate HFA 108 (90 Base) MCG/ACT Aerosol Solution (Prior Auth#:[id number]) Inhalation Taking Taltz 40 MG/0.5ML Solution Prefilled Syringe 1 mL Subcutaneous Taking Aspirin Low Dose 81 MG Tablet Delayed Release (Prior Auth#:[id number]) Oral Taking Atorvastatin Calcium 40 MG Tablet (Prior Auth#:[id number]) Oral Taking Carbidopa-Levodopa 25-100 MG Tablet (Prior Auth#:[id number]) Oral Taking Furosemide 20 MG Tablet as directed Orally Once a day Taking Meloxicam 7.5 MG Tablet (Prior Auth#:[id number]) Oral Taking Metoprolol Tartrate 75 MG Tablet 1 tablet with food Orally Twice a day Taking Nebulizer Taking Propranolol HCl 10 MG Tablet (Prior Auth#:[id number]) Oral Taking Warfarin Sodium 7.5 MG Tablet (Prior Auth#:[id number]) Oral Taking Advair Diskus 250-50 MCG/DOSE Aerosol Powder Breath Activated (Prior Auth#:[id number]) Inhalation Taking Spiriva Respimat 2.5 MCG/ACT Aerosol Solution (Prior Auth#:[id number]) Inhalation Taking Magnesium Oxide 400 (241.3 Mg) MG Tablet (Prior Auth#:[id number]) Oral Taking Isosorbide Mononitrate ER 30 MG Tablet Extended Release 24 Hour (Prior Auth#:[id number]) Oral Taking Albuterol Sulfate HFA 108 (90 Base) MCG/ACT Aerosol Solution (Prior Auth#:[id number]) Inhalation Not-Taking/PRNHumira Medrol 4 MG Tablet Therapy Pack as directed Orally dilTIAZem HCl ER Beads 180 MG Capsule Extended Release 24 Hour 1 capsule Orally Once a day Otezla 30 MG Tablet (Prior Auth#:[id number]) Oral Rosuvastatin Calcium 20 MG Tablet (Prior Auth#:[id number]) Oral Medication List reviewed and reconciled with the patientNot-Taking/PRN Humira Not-Taking/PRN Medrol 4 MG Tablet Therapy Pack as directed Orally Not-Taking/PRN dilTIAZem HCl ER Beads 180 MG Capsule Extended Release 24 Hour 1 capsule Orally Once a day Not-Taking/PRN Otezla 30 MG Tablet (Prior Auth#:[id number]) Oral Not-Taking/PRN Rosuvastatin Calcium 20 MG Tablet (Prior Auth#:[id number]) Oral Medication List reviewed and reconciled with [...] office visit today.?ORIENTED:?person, place, and time.?Vascular: ?DP PULSES(B):?05/14, B/L.?PT PULSES(B):?0/4, B/L.?CAPILLARY FILL TIME:?4 secs. per [...] use of a nail nipper and/or dremel-type gold nib grinder, to a more viable healthy nail [...] to maintain effectiveness in symptomatic relief - 17955.? * Procedure Codes:?04536 DEBRI DE NAIL, 6 OR MORE * [...] Monte DPM Date:? Generated for Jasper espana/Sowmya/Maryam on:?09/27/2024 09:17 AM EDT History and Physical [...]
--- OUTSIDE RECORDS SUMMARY | 2024-09-27 09:18 | XMS_ITS | Patient Health Record ---
Author Organization [facility] Billing Info Address [address] [place] [address] Care Team Providers Care Director Of Industrial Relations Name Role Phone BOGDAN FERGUSON Primary Care Provider Allergies No Known Allergies Reason For Referral [...] Problem Status W/U Status Risk Notes Problem 800862356 Obesity (BMI 30-39.9) (E66.9) Active confirmed Problem 213951154 Overweight (BMI 25.0-29.9) (E66.3) Active confirmed Plan Of Treatment Pending Test Test Name Order Date BASIC METABOLIC PANEL([facility]-CHEM[facility]) 2023 Future Test Test Name Order Date Basic Metabolic Panel (8) (-[id number] ) 05/20/2023 Basic Metabolic Panel (8) ([id number] ) 06/10/2023 Basic Metabolic Panel (8) ([id number] ) 07/22/2023 Insurance Providers Payer Name Payer Address Payer Phone Subscriber Number Group Number Insured Name Patient Relationship to Insured Coverage Start Date Coverage End Date [facility] [employer] [address] [address] [place] [id number] GastonEddie Self - patient is the insured Medical [...] with Preserved Ejection Fr action COPD 05/14/2022 [facility] Cardiac Ech o: Left ventricle: Normal global systolic left ventricular function. Ejection fraction was estimated in the range of 50% to 55%. Regional wall motion was normal. Diastolic function was indeterminate due to absence of NSR. Surgical History Surgery Date(Month/Year) Aortic Valve Mechanical Replacement Hospitalization History Reason Date(Month/Year) [facility] worsening dyspnea on e xertion and rest, atypical PNA, Afib, COPD 05/28/2023 [facility] COPD exacerbation, CHF exacerbatio n 05/12/2023
== END 2024-09-27 09:30 | disposition home or self-care (01) ==
LOC: HO.ACS 08:53
PROVIDERS: PCP Internal Medicine; Visit Provider Internal Medicine Medical Oncology
DX: Z79.01 Long term (current) use of anticoagulants (principal)

== ENCOUNTER → 2024-09-27 08:53 | Outpatient (BNVA) | payer MEDICARE, SELFPAY | PROVIDERS: PCP Internal Medicine; Visit Provider Internal Medicine Medical Oncology | DX: Z95.2 Presence of prosthetic heart valve (principal); Z79.01 Long term (current) use of anticoagulants; Z51.81 Encounter for therapeutic drug level monitoring | CPT/HCPCS: 85610; 99212 ==

== ENCOUNTER 2024-09-30 16:50 | Outpatient (AMB) | payer MEDICARE, SELFPAY ==
--- NOTE | 2024-09-30 16:51 | MHC.PC.OV ---
Intake Visit Reasons: Med review Application Tester Required: No Information Interpreted: non-clinical & clinical Retail Property Manager: Not Required per policy Accompanied by: Self / Same As Patient Allergies rosuvastatin Allergy (Severe, Verified 09/30/24 16:51) muscle aches Medication List - Last Reconciled 09/30/24 by Joey Shetty MD albuterol sulfate 90 mcg/actuation (Ventolin HFA) 2 puffs inhalation Q6H PRN allopurinol 300 mg PO DAILY amantadine HCl 100 mg PO DAILY 90 days amoxicillin mg PO aspirin 81 mg PO DAILY atorvastatin 40 mg PO DAILY bumetanide 2 mg PO DAILY carbidopa-levodopa 25-100 mg 2 tabs PO TID 90 days cholecalciferol (vitamin D3) 50 mcg PO DAILY [CPAP AUTOPAP 6-20 cm water humidified AIR Sleep study done in 05/16/2024 revealing moderately severe obstructive sleep apnea with an AHI of 17 patient was advised CPAP therapy with auto PAP mode pressure setting 6-20 cm] dapagliflozin propanediol (Farxiga) 10 mg PO DAILY agrqfjlhpcf-aqbzvcoic-mzppqeto 200-62.5-25 mcg (Trelegy Ellipta) 1 inh inhalation DAILY 90 days ipratropium-albuterol 0.5 mg-3 mg(2.5 mg base)/3 mL 3 mL inhalation BID 90 days isosorbide mononitrate ER 30 mg PO DAILY isosorbide mononitrate ER 60 mg PO DAILY latanoprost 0.005% 0 drps ophthalmic (eye) magnesium oxide 800 mg PO DAILY metoprolol tartrate 75 mg PO BID nebulizers As directed potassium chloride ER (Klor-Con M) 20 mEq PO BID prednisone 4 tabs QD x 2 days then 3 tabs QD x 2 days then 2 tabs Qd x 2 days then 1 tab QD x 2 days PO daily; propranolol 10 mg PO BID 90 days Taltz Autoinjector (ixekizumab) 80 mg subcut Q4W NS warfarin 7.5 mg See Protocol PO .QD Tobacco use date assessed: 07/06/24 Fall risk assessment: No Falls in past year Last assessed Fall Risk: 09/30/24 Dental Screening Dental Screen Date: 07/06/24 HPI Med review HPI Details complains L foot pain, - 5 days ago, deny trauma, mild swelling, no redness, does not think gout but heel is painful [facility] Medical History Hearing deficit Chronic restrictive lung disease Pulmonary nodules Syncope Essential tremor Hypercholesterolemia Hypertension Coronary artery disease COPD (chronic obstructive pulmonary disease) Aortic aneurysm Pulmonary fibrosis Surgical History S/P placement of cardiac pacemaker Aortic valve replaced History of aneurysm History of heart artery stent History of open reduction and internal fixation (ORIF) procedure Family History Mother No problems noted. Father No problems noted. Social History Housing: House Alcohol intake: current Alcohol intake frequency: a few times a week Alcohol type: beer Comment: 2x a week 1-2 drinks Patient Tobacco Use Status: Former Tobacco user Tobacco use type: Cigarette Years Smoked: 1996 e-Cigarette/Vaping Use: Never Used Second Hand Smoke Exposure: No service: No Current occupational status: employed Cognitive needs: No Hearing needs: No Vision needs: Yes Questionnaire Thrive Questionnaire Date Thrive assessed: 07/06/24 PARESH-7 AMB Questionnaire PARESH-7 Date PARESH - 7 assessed: 07/06/24 Source: Developed by Drs. Phillip Douglas, Terra Guy, Carl Denney and colleagues, with an educational leslye from [employer]. Physical exam (Primary Care) Tobacco/Smoking Status: Tobacco use Status Tobacco use date assessed 07/06/24 09/30/24 16:54 Patient Tobacco Use Status Former Tobacco user 09/30/24 16:54 Tobacco use type Cigarette 09/30/24 16:54 e-Cigarette/Vaping Use Never Used 09/30/24 16:54 Thrive Assessment: Date of Thrive Assessment Date Thrive assessed 07/06/24 09/30/24 16:54 Telehealth Telehealth Telehealth Platform: Telephone Location of provider rendering services: practice address Location of patient: address on file Patient Identification confirmed using: Name, : Yes Telehealth method: voice only Patient verbally consented to treatment: Yes Patient verbally consented to billing insurance company: Yes Patient informed of any privacy concerns related to visit: Yes Coding Level of Care Code Tele Est Pt Level 4 (34635) Diagnoses Obstructive sleep apnea G47.33 Permanent atrial fibrillation I48.21 Atrial fibrillation type: permanent Chronic heart failure with preserved ejection fraction I50.32 Heart failure chronicity: chronic Coronary artery disease involving rincon coronary artery of rincon heart without angina pectoris I25.10 Coronary Disease-Associated Artery/Lesion type: rincon artery [place] vs. transplanted heart: rincon heart Associated angina: without angina Mixed simple and mucopurulent chronic bronchitis J41.8 COPD type: chronic bronchitis Chronic bronchitis type: mixed simple and mucopurulent Pulmonary fibrosis J84.10 Plantar fasciitis of left foot M72.2 Assessment & Plan Assessment & Plan (1) Obstructive sleep apnea: Comment: Sleep study done in 05/16/2024 revealing moderately severe obstructive sleep apnea with an AHI of 17 patient was advised CPAP therapy with auto PAP mode pressure setting 6-20 cm Code(s): G47.33 - Obstructive sleep apnea (adult) (pediatric) Category: Medical Plan: Continue to use the CPAP more than 4 hours a night and benefits from this. (2) Atrial fibrillation: Comment: PAtient mentioned Code(s): I48.91 - Unspecified atrial fibrillation Category: Medical Qualifiers: Atrial fibrillation type: permanent Qualified Code(s): I48.21 - Permanent atrial fibrillation Plan: Continuing with anticoagulation and metoprolol 75 mg twice a day (3) (HFpEF) heart failure with preserved ejection fraction: Code(s): I50.30 - Unspecified diastolic (congestive) heart failure Category: Medical Qualifiers: Heart failure chronicity: chronic Qualified Code(s): I50.32 - Chronic diastolic (congestive) heart failure Plan: Continue with the diuretic and adjustment due to leg swelling but continue to monitor renal function patient also started on Farxiga (4) Coronary artery disease: Comment: RCA stenosis nuclear perfusion April, July 2019 catheterization no severe obstructive coronary artery disease Code(s): I25.10 - Atherosclerotic heart disease of rincon coronary artery without angina pectoris Category: Medical Qualifiers: Coronary Disease-Associated Artery/Lesion type: rincon artery [place] vs. transplanted heart: rincon heart Associated angina: without angina Qualified Code(s): I25.10 - Atherosclerotic heart disease of rincon coronary artery without angina pectoris Plan: Control the cholesterol, weight, blood pressure, patient is on anticoagulation (5) COPD (chronic obstructive pulmonary disease): Code(s): J44.9 - Chronic obstructive pulmonary disease, unspecified Category: Medical Qualifiers: COPD type: chronic bronchitis Chronic bronchitis type: mixed simple and mucopurulent Qualified Code(s): J41.8 - Mixed simple and mucopurulent chronic bronchitis Plan: Patient on albuterol inhaler and Trelegy (6) Pulmonary fibrosis: Comment: Small area of scarring at the left base. No evidence of active ILD. Code(s): J84.10 - Pulmonary fibrosis, unspecified Category: Medical Plan: Continue to monitor (7) Plantar fasciitis of left foot: Code(s): M72.2 - Plantar fascial fibromatosis Category: Medical Plan: Discussed with the patient that the treatment for plantar fasciitis is more conservative on using in so gel as well as stretching exercises. Will send patient to Podiatry also. Patient was given steroid to take away the inflammation. Advised to take it with food. Plan History of Present Illness The patient is a 69-year-old male presenting with heel pain consistent with plantar fasciitis. The pain began acutely on Thursday, is located in the left foot, and is characterized by being particularly severe in the morning upon waking, improving as the day progresses but affecting mobility and comfort. The patient denied any additional trauma or fall at the onset of symptoms. Prior episodes have been reported, but current swelling, though mild, is causing increased discomfort. Umjw-bfa-mecbfxk analgesics have been utilized for pain management despite recommendations to avoid certain NSAIDs. The patient perceives the right footwear with adequate padding as beneficial in alleviating symptoms. Review of Systems - Musculoskeletal: Reports heel pain, mild swelling. - General: Denies trauma or fall. - Dermatological: Denies redness around the heel. - Cardiovascular: No new symptoms reported during visit. - Respiratory: Denies new symptoms during visit. - Neurological: Denies new symptoms during visit. Plan For plantar fasciitis, I prescribed a tapered course of prednisone to manage inflammation and pain, advising the patient to take the medication with food. I also instructed the patient to use properly padded footwear and advised follow-up with frequency checker Leonora Mendoza for more specialized care. The patient was provided with an antibiotic refill for future dental prophylaxis. Regular monitoring of symptoms and communication regarding any changes or lack of improvement were emphasized. Patient was informed and verbally consented to the use of an ambient scribe for clinic note documentation during this visit. Discussion Notes I discussed the diagnosis of plantar fasciitis with the patient, outlining potential treatment options. The rationale for prescribing prednisone, including its anti-inflammatory benefits, was explained along with its dosing schedule. Possible side effects, such as gastrointestinal discomfort, were noted, and I advised taking the medication with food. We reviewed the benefit of using supportive footwear and emphasized follow-up with their frequency checker, Leonora Mendoza, for potential orthotics or further intervention if necessary. I refilled the amoxicillin prescription to ensure the patient has it for future dental procedures, even though there was no current urgency. Patient Instructions - Take prednisone as prescribed with food. - Use footwear with proper padding for heel support. - Follow up with frequency checker Leonora Mendoza as advised. - Monitor symptoms for any changes or worsening. - Return for further evaluation if symptoms persist. - Use amoxicillin as needed for future dental care, if indicated. Orders: Referrals Podiatry Referral M72.2 - Plantar fascial fibromatosis Medications: New prednisone 4 tabs QD x 2 days then 3 tabs QD x 2 days then 2 tabs Qd x 2 days then 1 tab QD x 2 days PO daily; 20 tabs 0RF J45.909 - Unspecified asthma, uncomplicated, M72.2 - Plantar fascial fibromatosis Changed From amoxicillin PO M72.2 - Plantar fascial fibromatosis To amoxicillin 2,000 mg (4 x 500 mg) PO .1 hour before proced 1 day 4 caps 2RF M72.2 - Plantar fascial fibromatosis
--- OUTSIDE RECORDS SUMMARY | 2024-09-30 16:52 | XMS_ITS ---
Author Organization [facility] Billing Info Address [address] [place] [id number] Care Team Providers Care Certified Adaptive Physical Educator Name Role Phone BOGDAN FERGUSON Primary Care Provider SUNNYERICA Unavailable [phone] Allergies No Known Allergies REASON FOR VISIT [...] 06/24/2023 Encounters Encounter Location Date Provider [id number] [id number] [id number] 06/24/2023 ERICA CORREA Hypokalemia E87.6 ; Acute [...] Test Test Name Order Date BASIC METABOLIC PANEL([facility]) 2023 Next Appt Details Follow Up: 4 Weeks, Reason: f/up HF clinic Progress Notes * MARILIN Eddie SolaresDOB: [birth year] (67 yo M)Acc No.[id number]:06/24/2023 PROGRESS NOTE Patient:?Eddie GASTON Provider:?ERICA CORREA MD :[id number]???Age:67 Y???Sex:Male Yvon e:06/24/2023 ?N#:[id number] Address:[address] [place] [address] [id number] Pcp:BOGDAN FERGUSON Subjective: * Chief Complaints: * [...] [facility] and you are now ill??No ?OFFICE [...] follow up. He was initially admitted to [facility] on 05/12/2023 for for a COPD [...] or syncope. He plans to remain in [place] until 08/10/23 when he returns home to [place]. * ROS:?CARDIOLOGY:?Constitutional:?Negative for: fever, chills or headaches..?Cardiovascular:?Negative [...] %:94. * ???Past Orders: ???Lab:BASIC METABOLIC PANEL ([facility]) (Order Date - 06/17/2023) (Collection Date [...] CORREA MD Date:?06/11 Generated for Jasper espana/Sowmya/eTransmitting on:?09/30/2024 04:51 PM EDT History and Physical Notes * HPI (History of Present Illness) Category Sub-Category Detail Notes Category Not es Patient History Mr. Gaston presents today for follow up. He was initially admitted to [facility] on 05/12/2023 for for a COPD [...] or syncope. He plans to remain in [place] until 08/10/23 when he returns home to [place]. First Point of Contact Screening Do any [...]
== END 2024-09-30 18:18 | disposition home or self-care (01) ==
LOC: HO.HMCH 16:50
PROVIDERS: PCP Internal Medicine; Visit Provider Internal Medicine
DX: I48.21 Permanent atrial fibrillation (principal); I50.32 Chronic diastolic (congestive) heart failure; J41.8 Mixed simple and mucopurulent chronic bronchitis; J84.10 Pulmonary fibrosis, unspecified; G47.33 Obstructive sleep apnea (adult) (pediatric); I25.10 Atherosclerotic heart disease of native coronary artery without angina pectoris; M72.2 Plantar fascial fibromatosis

== ENCOUNTER → 2024-09-30 16:50 | Outpatient (BNVA) | payer MEDICARE, SELFPAY | PROVIDERS: PCP Internal Medicine; Visit Provider Internal Medicine ==

== ENCOUNTER → 2024-10-04 10:30 | Outpatient (BNVA) | payer MEDICARE, SELFPAY | PROVIDERS: PCP Internal Medicine; Visit Provider Internal Medicine Medical Oncology | DX: Z13.89 Encounter for screening for other disorder (principal) ==

== ENCOUNTER 2024-10-07 12:29 | Outpatient (AMB) | payer MEDICARE, SELFPAY ==
--- NOTE | 2024-10-07 12:53 | A.OFFVIS_ITS ---
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 Back in 2016 he was evaluated by Pulmonary in had a pulmonary function studies demonstrating a moderate restrictive ventilatory defect. CT scan of the chest demonstrated some interstitial changes the bases suggesting some pulmonary fibrosis and given a diagnosis of interstitial lung disease. In the meantime he also has valvular disease and status post aortic mechanical valve replacement and does follow up closely with cardiology for his coronary artery disease. Patient is noticed that for the last several months he has had progressive shortness of breath. Moderate to severe to the point that he could not even walk to the mailbox from his home due to shortness of breath. He has lost weight since he loss had his PFTs in 2016 but he still overweight. More recently he did undergo a repeat CT scan of the chest demonstrating some persistent changes to the lungs, but, those were done at [facility] and I would have to review those films. Explained to him that that likely that he does have some interstitial changes and we have to review his previous imaging to see if he has any progression. He denies any exposure to any farms or any significant occupational exposures. He says he does live in an old house and does have some asbestos exposed but he has not worked directly with the asbestos. He was evaluated by his primary care doctor because of the shortness of breath and he was placed on Advair. He feels that his breathing has dramatically gotten much improved. 09/02/2022 the patient is here for pulmonary follow-up he otherwise patient is doing about the same. Continue have it on exertion moderate severity. He is still working. The patient is not exercising regularly. We did offer him pulmonary rehabilitation but is not interested. I did give him a online pulmonary rehab that he consider. We did look at his pulmonary function studies and he does have a total lung capacity 55% predicted. Explained to him that this is the major and cart of his respiratory symptoms. We did look at the CAT scan that he had back in 02/28/2020 demonstrating some bibasilar scarring in addition to significant mosaic pattern. She continues use the budesonide and also albuterol. He does not feel like the albuterol is working effectively. Therefore, will switch him to DuoNeb. He is going to have another CT scan in February in regards of his aneurysm and also we can address the pulmonary issues and will repeat his PFTs in a year's time. 09/28/2023 the patient is here for a pulmonary follow-up visit. He continues have significant dyspnea on exertion. Moderate severity. Back in May the patient was admitted to hospital in [facility] for respiratory symptoms. He was initially admitted and discharged in then he went back to the hospital. He did have a CT scan of the chest demonstrating reticulonodular opacities bilaterally suggesting of an atypical pneumonia. The patient is treated appropriately. She was also having significant rhonchi and wheezing at the time. He also was volume overloaded and treated with diuretics. He was able to be discharged. He more recently did follow-up with a CT scan of here. I did personally reviewed. He has some areas of atelectasis primarily the left base and some evidence of chronic bronchitis and some mosaic pattern. He has been on nebulized therapy. Although I do believe he did better on Trelegy inhaler. Therefore I did give him a sample for month and I did send a 90 day supply to the pharmacy. We will go ahead and stop the formoterol and he will hopefully wean off the budesonide. The patient also had pulmonary function studies which we personally reviewed. He has a mixed both obstructive and restrictive ventilatory defects. Both pretty significant. Likely both contributing to his dyspnea symptoms. The patient is willing to start pulmonary rehabilitation which I believe will also help him with his underlying respiratory issues. He also has a cardiac history and aneurysms. He will be following up with Cardiology closely. It is reassuring that the CT scan did not see any significant changes in the aneurysms. 04/04/2024 the patient is here for a pulmonary follow-up visit. The patient overall has been doing okay. He has been noticing a little wheezing. Jjty-fr-idtulpvh severity. Also chest congestion. The patient has been on the Trelegy inhaler has been affecting beneficial. He still needs his nebulizer treatments twice a day because of the wheezing. In addition to that he completed the 8 weeks of pulmonary rehabilitation which she finds very helpful. He did have a CT scan of the chest in 08/29/2023 which I personally reviewed. 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 Seems like his cardiac issues are stable. His lungs still show some mosaic changes consistent with his history of small airways disease it asthma although this appears to be better when compared to his previous CT scans. The patient also has psoriatic arthritis. His working closely with rheumatology for that. In view of his chronic bronchitis in obstructive lung disease he will be a very good candidate for Daliresp. Will send him prescription to the pharmacy. He will start slowly to minimize on the adverse effects hopefully until he develops tolerance. Then he can take it daily. I am hopeful that this will help him with his persistent chronic obstructive pulmonary disease. The patient also is having daytime drowsiness. His Cleveland score is elevated 11/24. The patient needs to have a sleep study. Will go ahead and follow-up with the results of the sleep study that had been already placed. Will go ahead and review the study afterwards. If he demonstrates underlying sleep apnea the patient does have significant cardiovascular risk factors and will benefit from PAP therapy. Therefore will follow-up after the results. 10/07/2024 the patient is here for a pulmonary follow-up visit. Overall the patient has been doing well. Back in August started developing severe pleuritic chest discomfort. Primarily on the left side. He went to the ER because he was too severe. There he did have a CT scan of the chest and also of the abdomen. The only finding was an opacity in the left lower lobe. Likely a component of pleurisy. The patient did improve by self without any medications. Will going to have to look at the area on decide if any additional imaging is warranted. In the meantime he continues on the Daliresp and he has been doing well on it. He taking the 250 mcg dose. Will go ahead increase to the 500 mcg dose. He continues with respiratory inhalers with good results. Will plan to follow-up in 6 months. I did personally review the CT scan demonstrating the airspace disease in the left lower lobe and also some degree of pleural-based thickening consistent with pleurisy and likely a component of low lower respiratory infection. At this point the patient feels better I do appreciate any rubs or crackles and I do not believe he needs any additional imaging at this time. Although when he returns in 6 months will plan to do an x-ray. He has any issues prior to that he will call for an earlier assessment. [facility] Medical History Hearing deficit Chronic restrictive lung disease Pulmonary nodules Syncope Essential tremor Hypercholesterolemia Hypertension Coronary artery disease COPD (chronic obstructive pulmonary disease) Aortic aneurysm Pulmonary fibrosis Surgical History S/P placement of cardiac pacemaker Aortic valve replaced History of aneurysm History of heart artery stent History of open reduction and internal fixation (ORIF) procedure Family History Mother No problems noted. Father No problems noted. Social History Housing: House Alcohol intake: current Alcohol intake frequency: a few times a week Alcohol type: beer Comment: 2x a week 1-2 drinks Patient Tobacco Use Status: Former Tobacco user Tobacco use type: Cigarette Years Smoked: quit 1996 e-Cigarette/Vaping Use: Never Used Second Hand Smoke Exposure: No service: No Current occupational status: employed Cognitive needs: No Hearing needs: No Vision needs: Yes Review of Systems Const Denies body aches, Denies chills, Denies fever(s), Denies headache(s) and Denies weakness Eyes Denies blurry vision, Denies change in vision and Denies other visual disturbances ENT Denies dizziness, Denies headache(s), Denies nasal trauma, Denies neck pain, Denies disequilibrium, Denies sinus pressure and Denies sore throat Card Denies chest pain, Denies chest pain with activity, Denies leg edema, Denies palpitations, Denies dyspnea, Reports dyspnea on exertion, Denies orthopnea and Denies paroxysmal nocturnal dyspnea Resp Reports chest congestion, Reports cough, Denies pain on inspiration, Denies dyspnea, Reports dyspnea on exertion and Reports wheezing GI Denies abdominal pain, Denies change in bowel habits, Denies constipation, Denies diarrhea, Denies nausea and Denies vomiting Denies hematuria, Denies dysuria, Denies urinary frequency and Denies urinary urgency Musc Denies back pain, Denies arthralgias, Denies joint swelling and Denies neck pain Skin/Breast Denies lesions and Denies rash Neuro Denies confusion, Denies dizziness, Denies headache(s), Denies paresthesias, Denies disequilibrium and Denies weakness Psych Denies anxiety, Denies confusion, Denies depression and Denies suicidal ideation Endo Denies polydipsia, Denies polyuria and Denies palpitations Aller/Immun Reports wheezing Physical Exam Vital Signs: Last Vital Signs Pulse 79 10/07/24 12:54 BP 122/60 10/07/24 12:54 Pulse Ox 95 10/07/24 12:54 Oxygen Delivery Method Room Air 10/07/24 12:54 BMI result Body Mass Index 29.4 Const General: No confusion Orientation/consciousness: No confusion HEENT General nose exam: Abnormal external nose present and Nasal discharge present Eyes Pupils: Equal, round and reactive pupils present Neck Neck: Yes normal visual inspection, Yes full ROM and Yes no lymphadenopathy Chest Chest palpation & inspection: normal inspection of the chest Resp Effort & Inspection: normal respiratory effort and prolonged expiratory phase Auscultation: wheezes and diminished lung sounds Cardio Rate: regular rate Rhythm: regular rhythm Heart sounds: S1 normal heart sound present and S2 normal heart sound present GI Palpation (GI): Soft to palpation and nontender Auscultation: normal bowel sounds General: Yes no CVA tenderness Back/Spine/Pelvis Back: no CVA tenderness Skin General skin exam: rashes and/or lesions noted Neuro General: No confusion Cranial nerves: Yes Equal, round and reactive pupils present Assessment & Plan Assessment & Plan (1) COPD (chronic obstructive pulmonary disease): Code(s): J44.9 - Chronic obstructive pulmonary disease, unspecified Category: Medical Qualifiers: COPD type: chronic bronchitis Chronic bronchitis type: mixed simple and mucopurulent Qualified Code(s): J41.8 - Mixed simple and mucopurulent chronic bronchitis Plan: Duonebs BID Decrease Budesonide as tolerated ideally to 0.25mg to minimize risk of worsening cataracts (2) Pulmonary fibrosis: Comment: Small area of scarring at the left base. No evidence of active ILD. Code(s): J84.10 - Pulmonary fibrosis, unspecified Category: Medical (3) Pulmonary nodules: Code(s): R91.8 - Other nonspecific abnormal finding of lung field Category: Medical (4) Chronic restrictive lung disease: Code(s): J98.4 - Other disorders of lung Category: Medical Plan continue Trelegy 200 Duoneb BID increase Daliresp 500 pulmonary exercise short-acting beta agonist as needed follow-up in 6 months Medications: New roflumilast (Daliresp) 500 mcg PO DAILY 90 tabs 3RF 90 days Changed From albuterol sulfate 90 mcg/actuation (Ventolin HFA) 2 puffs inhalation Q6H PRN 8.5 grams 3RF shortness of breath or wheezing J44.9 - Chronic obstructive pulmonary disease, unspecified To albuterol sulfate 90 mcg/actuation (Ventolin HFA) 2 puffs inhalation Q6H PRN 3 ea 3RF shortness of breath or wheezing 90 days J44.9 - Chronic obstructive pulmonary disease, unspecified Coding Level of Care Code Est Pt Level 4 (13712) Complex EM visit Add On G2211 Diagnoses Mixed simple and mucopurulent chronic bronchitis J41.8 COPD type: chronic bronchitis Chronic bronchitis type: mixed simple and mucopurulent Pulmonary fibrosis J84.10 Pulmonary nodules R91.8 Chronic restrictive lung disease J98.4 Time Spent (min) 16
[2024-10-07 12:54] VITALS: BP 122/60; PULSE 79; O2SAT 95; BMI 29.4
--- OUTSIDE RECORDS SUMMARY | 2024-10-07 12:55 | XMS_ITS ---
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 Name Role Phone BOGDAN FERGUSON Primary Care Provider SUNNYERICA Unavailable [phone] Allergies No Known Allergies REASON FOR VISIT [...] 06/24/2023 Encounters Encounter Location Date Provider Diagnosis [id number] [id number] [id number] 06/24/2023 ERICA CORREA Hypokalemia E87.6 ; Acute [...] Test Test Name Order Date BASIC METABOLIC PANEL([facility]) 2023 Next Appt Details Follow Up: 4 Weeks, Reason: f/up HF clinic Progress Notes * MARILIN Eddie SolaresDOB: [birth year] (67 yo M)Acc No.[id number]:06/24/2023 PROGRESS NOTE Patient:?Eddie GASTON Provider:?ERICA CORREA MD :1955???Age:67 Y???Sex:Male Yvon e:06/24/2023 ?N#:[id number] Address:[address] [place] [address] [facility] Cardo[facility]UN[id number] Pcp:BOGDAN FERGUSON Subjective: * Chief Complaints: * [...] follow up. He was initially admitted to [facility] on 05/12/2023 for for a [...] or syncope. He plans to remain in [place] until 08/10/23 when he returns home to [place]. * ROS:?CARDIOLOGY:?Constitutional:?Negative for: fever, chills or headaches..?Cardiovascular:?Negative [...] %:94. * ???Past Orders: ???Lab:BASIC METABOLIC PANEL ([facility]) (Order Date - 06/17/2023) (Collection [...] CORREA MD Date:?06/11 Generated for Jasper espana/Sowmya/eTransmitting on:?10/07/2024 12:55 PM EDT History and Physical Notes * HPI (History of Present Illness) Category Sub-Category Detail Notes Category Not es Patient History Mr. Gaston presents today for follow up. He was initially admitted to [facility] on 05/12/2023 for for a [...] or syncope. He plans to remain in [place] until 08/10/23 when he returns home to [place]. First Point of Contact Screening Do any [...]
== END 2024-10-07 13:27 | disposition home or self-care (01) ==
LOC: HO.HPS 12:30
PROVIDERS: PCP Internal Medicine; Visit Provider Hospitalist
DX: J41.8 Mixed simple and mucopurulent chronic bronchitis (principal); J84.10 Pulmonary fibrosis, unspecified; R91.8 Other nonspecific abnormal finding of lung field; J98.4 Other disorders of lung
CPT/HCPCS: 99214; G2211

== ENCOUNTER → 2024-10-07 12:29 | Outpatient (BNVA) | payer MEDICARE, SELFPAY | PROVIDERS: PCP Internal Medicine; Visit Provider Hospitalist | DX: J41.8 Mixed simple and mucopurulent chronic bronchitis (principal); J84.10 Pulmonary fibrosis, unspecified; J98.4 Other disorders of lung; R91.8 Other nonspecific abnormal finding of lung field | CPT/HCPCS: 99212 ==

== ENCOUNTER 2024-10-11 07:34 | Outpatient (REF) | payer MEDICARE, SELFPAY ==
--- OUTSIDE RECORDS SUMMARY | 2024-10-11 07:36 | XMS_ITS ---
Author Organization [facility] Billing Info Address [address] [place] [address] Care Team Providers Care Card Dealer Name Role Phone BOGDAN FERGUSON Primary Care Provider SUNNYERICA Unavailable [phone] Allergies No Known Allergies REASON FOR VISIT [...] 06/24/2023 Encounters Encounter Location Date Provider Diagnosis [id number] [id number] [id number] 06/24/2023 ERICA CORREA Hypokalemia E87.6 ; Acute [...] Test Test Name Order Date BASIC METABOLIC PANEL([facility]) 2023 Next Appt Details Follow Up: 4 Weeks, Reason: f/up HF clinic Progress Notes * MARILIN Eddie SolaresDOB: [birth year] (67 yo M)Acc No.[id number]:06/24/2023 PROGRESS NOTE Patient:?Eddie GASTON Provider:?ERICA CORREA MD :1955???Age:67 Y???Sex:Male Yvon e:06/24/2023 ?N#:[id number] Address:[address] [place] [address] [id number] Pcp:BOGDAN FERGUSON Subjective: * Chief Complaints: * [...] or a close contact traveled outside the [facility] and you are now ill??No ?OFFICE [...] follow up. He was initially admitted to [facility] on 05/12/2023 for for a COPD exacerbation [...] or syncope. He plans to remain in [place] until 08/10/23 when he returns home to [place]. * ROS:?CARDIOLOGY:?Constitutional:?Negative for: fever, chills or headaches..?Cardiovascular:?Negative [...] %:94. * ???Past Orders: ???Lab:BASIC METABOLIC PANEL ([facility]) (Order Date - 06/17/2023) (Collection Date & [...] CORREA MD Date:?06/11 Generated for Jasper espana/Sowmya/eTransmitting on:?10/11/2024 07:35 AM EDT History and Physical Notes * HPI (History of Present Illness) Category Sub-Category Detail Notes Category Not es Patient History Mr. Gaston presents today for follow up. He was initially admitted to [facility] on 05/12/2023 for for a COPD exacerbation [...] or syncope. He plans to remain in [place] until 08/10/23 when he returns home to [...]
[2024-10-11 07:50] LABS: MANUAL DIFF FLAG NO
[2024-10-11 08:26] LABS: Basophils Absolute Auto 0.1 X10*3/uL (0.0-0.2); Basophils Percent Auto 0.9 % (0-2); Eosinophils Absolute Auto 0.2 X10*3/uL (0.0-0.4); Eosinophils Percent Auto 2.4 % (0-4); Hematocrit 44.3 % (42.0-52.0); Imm Gran Pct Auto 1.3 % (0.0-0.4); Immature Retic Fraction 9.6 % (2.3-13.4); Lymphocytes Absolute Auto 1.5 X10*3/uL (1.2-4.9); Lymphocytes Percent Auto 19.2 % (20-40); Mean Corpuscular HGB Conc 33.9 g/dl (31.0-36.0); Mean Corpuscular Hemoglobin 32.5 pg (27.0-33.0); Mean Corpuscular Volume 95.9 fL (80.0-98.0); Mean Platelet Volume 10.1 fL (9.4-12.4); Monocytes Absolute Auto 0.7 X10*3/uL (0.1-1.2); Monocytes Percent Auto 9.8 % (2-11); Neutrophils Percent Auto 66.4 % (45-73); Platelet Count 207 X10*3/uL (160-400); Red Blood Count 4.62 X10*6/uL (4.60-5.80); Red Cell Distribution Width 14.4 % (11.0-16.0); Retic HGB Equivalent 36.2 pg (30.0-35.0); Reticulocyte Percent 1.6 % (0.5-1.8); Reticulocytes Absolute 0.073 X10*6/uL (0.026-0.095); White Blood Count 7.5 X10*3/uL (4.8-10.8)
[2024-10-11 08:45] LABS: B Type Natriuretic Peptide 225 pg/mL (<100)
[2024-10-11 09:03] LABS: Alanine Aminotransferase 20 U/L (0-40); Albumin Level 4.3 g/dL (3.5-5.0); Alkaline Phosphatase 84 U/L (39-117); Anion Gap 13 (12-20); Aspartate Amino Transferase 34 U/L (5-37); Blood Urea Nitrogen 14 mg/dL (9-16); Calcium 9.6 mg/dL (8.4-10.2); Carbon Dioxide 31 mmol/L (22-29); Chloride 99 mmol/L (96-108); Estimated Glomerular Filt Rate > 60; Glucose Random 118 mg/dL (60-115); Iron 85 mcg/dL (45-160); Magnesium 2.4 mg/dL (1.6-2.6); Percent Iron Saturation 30 % (15-50); Potassium 3.7 mmol/L (3.3-5.1); Sodium 139 mmol/L (135-145); Total Iron Binding Capacity 281 mcg/dL (228-428); Total Protein 7.2 g/dL (6.5-8.0); Unsaturated Iron Binding 196 ug/dL; Uric Acid 4.4 mg/dL (3.4-7.0)
[2024-10-11 09:14] LABS: Ferritin 212 ng/mL (20-250); Free T4 (Free Thyroxine) 1.07 ng/dL (0.71-1.85); Thyroid Stimulating Hormone 0.67 uIU/mL (0.32-4.0)
[2024-10-11 09:19] LABS: Folate 8.9 ng/mL (> or = 4.0); Vitamin B12 478 pg/mL (200-900)
== END 2024-10-11 07:35 | disposition home or self-care (01) ==
LOC: HO.LAB 07:34
PROVIDERS: Absent Provider Student in an Organized Health Care Education/Training Program; PCP Internal Medicine; Visit Provider Internal Medicine
DX: D64.9 Anemia, unspecified (principal); M1A.09X0 Idiopathic chronic gout, multiple sites, without tophus (tophi); I50.32 Chronic diastolic (congestive) heart failure
CPT/HCPCS: 36415; 80053; 82607; 82728; 82746; 83540; 83735; 83880; 84439; 84443; 84550; 85025; 85045

== ENCOUNTER 2024-10-13 12:35 | Outpatient (AMB) | payer MEDICARE, SELFPAY ==
[2024-10-13 12:37] VITALS: BP 132/70; PULSE 69; O2SAT 96; BMI 29.2
--- NOTE | 2024-10-13 12:37 | MHC.PC.OV ---
Vital Signs 10/13/24 12:37 Height 6 ft 1 in Weight 221 lb 2 oz BMI 29.2 BP 132/70 Blood Pressure Location Lt brachial Position Sitting Pulse 69 Pulse Source Pulse Oximeter Pulse Oximetry (%) 96 Oxygen Delivery Method Room Air Intake Visit Reasons: AV mechanical valve, COPD - see comments Door Tender Required: No Accompanied by: Self / Same As Patient Allergies rosuvastatin Allergy (Severe, Verified 10/13/24 12:43) muscle aches Tobacco use date assessed: 10/13/24 Fall risk assessment: No Falls in past year Last assessed Fall Risk: 10/13/24 Dental Screening Dental Screen Date: 10/13/24 Did you have a dental visit in the last 12 months?: Yes Did you have a dental problem in the last 6 months where you did not have access to dental care?: No Was dental information given to patient?: Patient has dentist [facility] Medical History Hearing deficit Chronic restrictive lung disease Pulmonary nodules Syncope Essential tremor Hypercholesterolemia Hypertension Coronary artery disease COPD (chronic obstructive pulmonary disease) Aortic aneurysm Pulmonary fibrosis Surgical History S/P placement of cardiac pacemaker Aortic valve replaced History of aneurysm History of heart artery stent History of open reduction and internal fixation (ORIF) procedure Family History Mother No problems noted. Father No problems noted. Social History Housing: House Alcohol intake: current Alcohol intake frequency: a few times a week Alcohol type: beer Comment: 2x a week 1-2 drinks Patient Tobacco Use Status: Former Tobacco user Tobacco use type: Cigarette Years Smoked: quit 1996 e-Cigarette/Vaping Use: Never Used Second Hand Smoke Exposure: No service: No Current occupational status: employed Cognitive needs: No Hearing needs: No Vision needs: Yes Questionnaire PHQ-9 Over the last 2 weeks, how often have you been bothered by any of the following problems? 1. Little interest or pleasure in doing things: not at all 2. Feeling down, depressed, or hopeless: not at all 3. Trouble falling or staying asleep, or sleeping too much: not at all 4. Feeling tired or having little energy: not at all 5. Poor appetite or overeating: not at all 6. Feeling bad about yourself - or that you are a failure or have let yourself or your family down: not at all 7. Trouble concentrating on things, such as reading the newspaper or watching television: not at all 8. Moving or speaking so slowly that other people could have noticed. Or the opposite - being so fidgety or restless that you have been moving around a lot more than usual: not at all 9. Thoughts that you would be better off or of hurting yourself in some way: not at all Total score: 0 Source: Developed by Drs. Phillip Douglas, Terra Guy, Carl Denney and colleagues, with an educational leslye from [email or web address] Thrive Questionnaire Date Thrive assessed: 10/13/24 I am a: Patient What is your living situation today?: I have a steady place to live Within the past 12 months, did the food you bought not last and you didn't have the money to get more?: Never true Within the past 12 months, did you worry whether your food would run out before you got money to buy more?: Never true Do you have trouble paying for medicines?: No Do you have trouble getting transportation to medical appointments?: No Do you have trouble paying your heating and electricity bill?: No Do you have trouble taking care of your child, family member or friend?: No Do you have trouble with day-to-day activities such as bathing, preparing meals, shopping, managing finances, etc.?: No Are you currently unemployed and looking for a job?: No Are you interested in more education?: No Please select the resources that you would like help with: None Currently or been in a relationship where the following occur: No concerns reported THRIVE Score: 0 AUDIT C Alcohol Use Questionnaire (AUDIT-C) 1. How often do you have a drink containing alcohol?: 2-4 times a month 2. How many drinks containing alcohol do you have on a typical day when you are drinking?: 1 or 2 3. How often do you have six or more drinks on one occasion?: Never Total Score: 2 PARESH-7 AMB Questionnaire PARESH-7 Date PARESH - 7 assessed: 10/13/24 Feeling nervous, anxious, or on edge: 0 = Not at all Not being able to stop or control worryin = Not at all Worrying too much about different things: 0 = Not at all Trouble relaxin = Not at all Being so restless that it is hard to sit still: 0 = Not at all Becoming easily annoyed or irritable: 0 = Not at all Feeling afraid as if something awful might happen: 0 = Not at all Total PARESH-7 score (0-4 normal; 5-9 mild; 10-14 moderate; 15-21 severe): 0 Source: Developed by Drs. Phillip Douglas, Terra Guy, Carl Denney and colleagues, with an educational leslye from [email or web address] Physical exam (Primary Care) Vital Signs: Last Vital Signs Pulse 69 10/13/24 12:37 BP 132/70 10/13/24 12:37 Pulse Ox 96 10/13/24 12:37 Oxygen Delivery Method Room Air 10/13/24 12:37 BMI result Body Mass Index 29.2 Tobacco/Smoking Status: Tobacco use Status Tobacco use date assessed 10/13/24 10/13/24 12:45 Patient Tobacco Use Status Former Tobacco user 10/13/24 12:39 Tobacco use type Cigarette 10/13/24 12:39 e-Cigarette/Vaping Use Never Used 10/13/24 12:39 PHQ-9: PHQ-9 Score PHQ-9: Total score 0 10/13/24 13:29 Thrive Assessment: Date of Thrive Assessment Date Thrive assessed 10/13/24 10/13/24 12:45 Currently or been in a relationship where the following occur: No concerns reported Const General: alert; No acute distress Eyes Conjunctivae: conjunctivae normal Resp Auscultation: clear to auscultation bilaterally Cardio Rate: regular rate Rhythm: regular rhythm GI Inspection: Yes normal to inspection Extrem General: Yes normal to inspection and No edema Immunizations Boostrix Tdap 2.5 Lf unit-8 mcg-5 Lf/0.5 mL intramuscular syringe Performing Provider: Joey Shetty MD [facility] Administered by: DARWIN Zepeda on 10/13/24 13:29 Dose Route Admin Location Dispensed Lot Number Expiration Date NDC Musculoskeletal Physiotherapist 0.5 mL IM Right Deltoid 0.5 mL [id number] 01/07/27 40260-472-30 [employer] Android VIS Given Date VIS Provided VIS Publication Date 10/13/24 Single Vaccine 20 Eligibility Eligibility Date Funding Source Not VFC Eligible 10/13/24 Private Coding Level of Care Code Est Pt Level 4 (21509) Complex EM visit Add On G2211 Diagnoses Obstructive sleep apnea G47.33 Permanent atrial fibrillation I48.21 Atrial fibrillation type: permanent Chronic heart failure with preserved ejection fraction I50.32 Heart failure chronicity: chronic Psoriatic arthritis L40.50 Tubular adenoma of colon D12.6 Aortic valve replaced Z95.2 Hypercholesterolemia E78.00 Essential hypertension I10 Hypertension type: essential hypertension Coronary artery disease involving sun'aq coronary artery of sun'aq heart without angina pectoris I25.10 Associated angina: without angina Coronary Disease-Associated Artery/Lesion type: sun'aq artery [place] vs. transplanted heart: sun'aq heart Mixed simple and mucopurulent chronic bronchitis J41.8 COPD type: chronic bronchitis Chronic bronchitis type: mixed simple and mucopurulent Assessment & Plan Assessment & Plan (1) Obstructive sleep apnea: Comment: Sleep study done in 05/16/2024 revealing moderately severe obstructive sleep apnea with an AHI of 17 patient was advised CPAP therapy with auto PAP mode pressure setting 6-20 cm Code(s): G47.33 - Obstructive sleep apnea (adult) (pediatric) Category: Medical Plan: Continue to use the CPAP more than 4 hours a night and benefits from this. (2) Atrial fibrillation: Comment: PAtient mentioned Code(s): I48.91 - Unspecified atrial fibrillation Category: Medical Qualifiers: Atrial fibrillation type: permanent Qualified Code(s): I48.21 - Permanent atrial fibrillation Plan: Patient is on Coumadin continuing with propranolol and metoprolol (3) (HFpEF) heart failure with preserved ejection fraction: Code(s): I50.30 - Unspecified diastolic (congestive) heart failure Category: Medical Qualifiers: Heart failure chronicity: chronic Qualified Code(s): I50.32 - Chronic diastolic (congestive) heart failure Plan: Patient on diuretics and continue to monitor renal function diuretic is bumetanide 2 mg once a (4) Psoriatic arthritis: Comment: Otelza ineffective Humira started January 2023. Effective I DC'd it 11/2023 due to his history of CHF Estefania started 12/2023 effective for skin and joints Code(s): L40.50 - Arthropathic psoriasis, unspecified Category: Medical Plan: Continue follow-up with Rheumatology (5) Tubular adenoma of colon: Code(s): D12.6 - Benign neoplasm of colon, unspecified Category: Medical Plan: Patient is reminded about colonoscopy (6) Aortic valve replaced: Comment: Bicuspid Dr. White [address] mechanical valve Code(s): Z95.2 - Presence of prosthetic heart valve Category: Surgical Plan: Continue to follow-up with cardiology (7) Hypercholesterolemia: Code(s): E78.00 - Pure hypercholesterolemia, unspecified Category: Medical Plan: Avoid fried foods, chicken skin, eggs, butter margarine, pastries and meat. Be it pork or beef they have a lot of cholesterol patient is on atorvastatin 40 mg once a day (8) Hypertension: Code(s): I10 - Essential (primary) hypertension Category: Medical Qualifiers: Hypertension type: essential hypertension Qualified Code(s): I10 - Essential (primary) hypertension Plan: Continue with blood pressure medication. Decrease salt intake and exercise on metoprolol 75 mg twice a day and propranolol (9) Coronary artery disease: Comment: RCA stenosis nuclear perfusion April, July 2019 catheterization no severe obstructive coronary artery disease Code(s): I25.10 - Atherosclerotic heart disease of sun'aq coronary artery without angina pectoris Category: Medical Qualifiers: Associated angina: without angina Coronary Disease-Associated Artery/Lesion type: sun'aq artery [place] vs. transplanted heart: sun'aq heart Qualified Code(s): I25.10 - Atherosclerotic heart disease of sun'aq coronary artery without angina pectoris Plan: Control the cholesterol, weight, blood pressure, on anticoagulation and aspirin (10) COPD (chronic obstructive pulmonary disease): Code(s): J44.9 - Chronic obstructive pulmonary disease, unspecified Category: Medical Qualifiers: COPD type: chronic bronchitis Chronic bronchitis type: mixed simple and mucopurulent Qualified Code(s): J41.8 - Mixed simple and mucopurulent chronic bronchitis Plan: Continue with Trelegy continue to follow-up with Pulmonary and placed on Daliresp Plan History of Present Illness The patient is a 69-year-old male presenting with a follow-up for multiple chronic conditions. He has a significant medical history, including an aortic valve replacement in 1996, and ongoing management of pulmonary fibrosis and COPD. His current pulmonary treatment plan includes Duoneb, Trelegy, and a short-acting inhaler, although he rarely uses his albuterol inhaler. Pulmonology follow-ups confirmed the absence of interstitial lung disease. Additionally, the patient has coronary artery disease, hypertension managed with metoprolol and propranolol, congestive heart failure, and atrial fibrillation. His blood pressure and lipid levels are being actively monitored, with recent records indicating an LDL cholesterol of 66 mg/dL and an adequately controlled blood pressure. Tremors noted in this patient were managed with propranolol in the past, and they have been discussed concerning current treatment plans. The patient experienced a tubular adenoma of the colon, with a colonoscopy last performed in May 2021. He also deals with psoriasis. Recently, the patient has addressed concerns with presumed plantar fasciitis for which prednisone has been prescribed, offering some relief. Obstructive sleep apnea is managed with CPAP therapy, which is well-tolerated and reportedly beneficial. Follow-up blood work indicates a stable hemoglobin A1c at 5.5% and normal iron levels, with no anemia detected. Kidney function and serum electrolytes are within normal limits, as well as a gradually improving BNP level from an elevated baseline. Consideration for Tdap vaccination was discussed to address pertussis risk due to COPD, evaluating the insurance coverage for the immunization. Health Maintenance - Tdap vaccination discussed for pertussis immunization; last tetanus (Td) shot in 2018. - Colonoscopy conducted in May 2021, following tubular adenoma diagnosis. - Regular CPAP usage (4 hours/night) for obstructive sleep apnea. - Lipid levels management: last LDL was 66 mg/dL in June. - Blood sugar and hemoglobin A1c reviewed with the last A1c in June at 5.5%. - Continual monitoring for congestive heart failure with recent BNP improvement from 310 to 225. - Follow-up appointments with rheumatology and cardiology. - Encouragement of supportive footwear and foot exercises for plantar fasciitis. - Discussion on the impact of weight and activities like golf, and the advantage of a suitable fitness regime. Social History - The patient remains active despite exertional dyspnea due to COPD. - He experiences limitations in his golf activities due to tremors. Review of Systems - Respiratory: Denies frequent need for albuterol inhaler; reports benefit with current COPD medications. - Cardiovascular: No new chest pain, palpitations stable; reports tremors affecting daily activities. - Musculoskeletal: Reports relief from left heel pain post prednisone for plantar fasciitis. - Hematologic: Denies symptoms of anemia. - Endocrine: Denies symptoms of diabetes; blood sugar is underscored to monitor. - Neurological: Reports tremors interfering with golf activities; following up with neurologist. - Dermatological: Freelance psoriasis management discussed. Physical Exam Results - Labs: Blood count normal; lipid profile with LDL at 66 mg/dL; hemoglobin A1c at 5.5%; stable kidney function; serum electrolytes within normal limits; BNP improved (225 from 310). - Tests and Diagnostics: Evaluations for pulmonary fibrosis and confirmation of no interstitial lung disease. Plan The follow-up visit focused on comprehensive management of the patient's chronic conditions, importantly COPD and CHF. Continuation of the current COPD regimen is approved, as is ongoing heart failure management monitored through BNP levels. Propranolol remains part of the plan to address tremors and cardiovascular stability. Tdap vaccination was offered, factoring in insurance coverage, due to lung health concerns. The importance of lifestyle modifications to address plantar fasciitis was discussed, encouraging proper footwear and exercises. Lipid profiling and blood pressure continue to be monitored to ensure cardiovascular health stability. Colon health follow-up and the potential need for immunization against pertussis were also addressed given the patient's health history. Regular CPAP therapy usage supports better management of sleep apnea, and upcoming rheumatology and cardiology appointments are vital for ongoing care. Patient was informed and verbally consented to the use of an ambient scribe for clinic note documentation during this visit. Discussion Notes In our discussion, the patient and I addressed his chronic condition management. For COPD and CHF, continued adherence to the prescribed medications is advised. Propranolol usage supplements this by managing tremors, while assuring cardiovascular stability. We discussed Tdap administration against pertussis due to COPD, emphasizing insurance coverage considerations. I expressed satisfaction with his improved BNP and encouraged data trend maintenance. Discussed were plantar fasciitis management through lifestyle changes, and Tdap's benefits were deliberated, acknowledging possible insurance complications. Colon health, proximate appointments, and CPAP use were addressed, expressing enthusiasm with therapy adherence. I encouraged sustained appointments with relevant specialities for comprehensive care maintenance. Patient Instructions - Continue using COPD medications as prescribed and rinse your mouth after using inhalers. - Maintain regular follow-up with your production operations engineer and sports health club membership advisors. - Monitor blood sugar levels and report any significant changes. - Consider Tdap vaccination; check with insurance regarding coverage. - Use supportive footwear and perform recommended exercises for heel pain. - Keep using CPAP nightly for sleep apnea. - Schedule and attend follow-up rheumatology appointments. - Monitor for any changes in health status and report concerns promptly. Orders: Orders B Type Natriuretic Peptide 4 Months I50.32 - Chronic diastolic (congestive) heart failure Comprehensive Met. Panel 4 Months I50.32 - Chronic diastolic (congestive) heart failure Free T4 (Free Thyroxine) 4 Months I50.32 - Chronic diastolic (congestive) heart failure Thyroid Stimulating Hormone 4 Months I50.32 - Chronic diastolic (congestive) heart failure Lipid Panel 4 Months E78.00 - Pure hypercholesterolemia, unspecified, I50.32 - Chronic diastolic (congestive) heart failure TDaP Immunization Today Z23 - Encounter for immunization Complete Blood Count Auto Diff 4 Months I50.32 - Chronic diastolic (congestive) heart failure Hemoglobin A1c 4 Months I50.32 - Chronic diastolic (congestive) heart failure Magnesium 4 Months I50.32 - Chronic diastolic (congestive) heart failure Uric Acid 4 Months I50.32 - Chronic diastolic (congestive) heart failure Prostate Specific Antigen Scr Today I50.32 - Chronic diastolic (congestive) heart failure Medications: New isosorbide mononitrate ER 60 mg PO DAILY 90 tabs 3RF isosorbide mononitrate ER 30 mg PO DAILY 90 tabs 3RF
--- OUTSIDE RECORDS SUMMARY | 2024-10-13 14:41 | XMS_ITS ---
Author Organization [facility] Billing Info Address [address] [place] [id number] Care Team Providers Care Golf Sales Manager Name Role Phone BOGDAN FERGUSON Primary Care Provider SUNNYERICA Unavailable [phone] Allergies No Known Allergies REASON FOR VISIT [...] 06/24/2023 Encounters Encounter Location Date Provider Diagnosis [id number] [id number] [id number] 06/24/2023 ERICA CORREA Hypokalemia E87.6 ; Acute [...] Test Name Order Date BASIC METABOLIC PANEL([facility]) 2023 Next Appt Details Follow Up: 4 Weeks, Reason: f/up HF clinic Progress Notes * MARILIN Eddie SolaresDOB: [birth year] (67 yo M)Acc No.[id number]:06/24/2023 PROGRESS NOTE Patient:?Eddie GASTON Provider:?ERICA CORREA MD :1955???Age:67 Y???Sex:Male Yvon e:06/24/2023 ?N#:[id number] Address:[address] [place] [address] [id number] Pcp:BOGDAN FERGUSON Subjective: * Chief Complaints: * [...] or a close contact traveled outside the [facility] and you are now ill??No [...] follow up. He was initially admitted to [facility] on 05/12/2023 for for a COPD [...] or syncope. He plans to remain in [place] until 08/10/23 when he returns home to [place]. * ROS:?CARDIOLOGY:?Constitutional:?Negative for: fever, chills or headaches..?Cardiovascular:?Negative [...] %:94. * ???Past Orders: ???Lab:BASIC METABOLIC PANEL ([facility]) (Order Date - 06/17/2023) (Collection Date [...] CORREA MD Date:?06/11 Generated for Jasper espana/Sowmya/eTransmitting on:?10/13/2024 02:40 PM EDT History and Physical Notes * HPI (History of Present Illness) Category Sub-Category Detail Notes Category Not es Patient History Mr. Gaston presents today for follow up. He was initially admitted to [facility] on 05/12/2023 for for a COPD [...] or syncope. He plans to remain in [place] until 08/10/23 when he returns home to [place]. First Point of Contact Screening Do any [...]
== END 2024-10-13 14:40 | disposition home or self-care (01) ==
LOC: HO.HMCH 12:36
PROVIDERS: PCP Internal Medicine; Visit Provider Internal Medicine
DX: I48.21 Permanent atrial fibrillation (principal); I50.32 Chronic diastolic (congestive) heart failure; L40.50 Arthropathic psoriasis, unspecified; J41.8 Mixed simple and mucopurulent chronic bronchitis; G47.33 Obstructive sleep apnea (adult) (pediatric); D12.6 Benign neoplasm of colon, unspecified; Z95.2 Presence of prosthetic heart valve; E78.00 Pure hypercholesterolemia, unspecified; I10 Essential (primary) hypertension; I25.10 Atherosclerotic heart disease of native coronary artery without angina pectoris; Z23 Encounter for immunization

== ENCOUNTER → 2024-10-13 12:35 | Outpatient (BNVA) | payer MEDICARE, SELFPAY | PROVIDERS: PCP Internal Medicine; Visit Provider Internal Medicine | DX: Z23 Encounter for immunization (principal); G47.33 Obstructive sleep apnea (adult) (pediatric); I48.21 Permanent atrial fibrillation; I11.0 Hypertensive heart disease with heart failure; I50.32 Chronic diastolic (congestive) heart failure; L40.50 Arthropathic psoriasis, unspecified; D12.6 Benign neoplasm of colon, unspecified; E78.00 Pure hypercholesterolemia, unspecified; I25.10 Atherosclerotic heart disease of native coronary artery without angina pectoris; J41.8 Mixed simple and mucopurulent chronic bronchitis | CPT/HCPCS: 90471; 90715; 99212 ==

== ENCOUNTER → 2024-10-18 10:04 | Outpatient (BNVA) | payer MEDICARE, SELFPAY | PROVIDERS: PCP Internal Medicine; Visit Provider Internal Medicine Medical Oncology ==

== ENCOUNTER → 2024-10-25 09:51 | Outpatient (BNVA) | payer MEDICARE, SELFPAY | PROVIDERS: PCP Internal Medicine; Visit Provider Internal Medicine Medical Oncology | DX: Z13.89 Encounter for screening for other disorder (principal) ==

== ENCOUNTER → 2024-11-01 09:14 | Outpatient (BNVA) | payer MEDICARE, SELFPAY | PROVIDERS: PCP Internal Medicine; Visit Provider Internal Medicine Medical Oncology | DX: Z13.89 Encounter for screening for other disorder (principal) ==

== ENCOUNTER 2024-11-10 10:03 | Outpatient (REF) | payer MEDICARE, SELFPAY | END 2024-11-10 10:04 | disposition home or self-care (01) | LOC: HO.HKASLDS 10:03 | PROVIDERS: PCP Internal Medicine; Visit Provider Internal Medicine Rheumatology | DX: Z12.5 Encounter for screening for malignant neoplasm of prostate (principal); L40.50 Arthropathic psoriasis, unspecified; I11.0 Hypertensive heart disease with heart failure; I50.32 Chronic diastolic (congestive) heart failure; M1A.09X0 Idiopathic chronic gout, multiple sites, without tophus (tophi); Z79.60 Long term (current) use of unspecified immunomodulators and immunosuppressants | CPT/HCPCS: 36415; 84153; 85652; 86140; 99212 ==

== ENCOUNTER 2024-11-10 10:03 | Outpatient (AMB) | payer MEDICARE, SELFPAY ==
--- OUTSIDE RECORDS SUMMARY | 2023-06-24 10:30 | XMS_ITS ---
Author Organization [facility] Billing Info Address [address] [place] [address] Care Team Providers Care Field Servicer Name Role Phone BOGDAN FERGUSON Primary Care Provider [phone] SUNNYERICA Unavailable [phone] Allergies No Known Allergies REASON FOR VISIT [...] 06/24/2023 Encounters Encounter Location Date Provider Diagnosis [id number] [address] [id number] 06/24/2023 ERICA CORREA Hypokalemia E87.6 ; Acute [...] Test Test Name Order Date BASIC METABOLIC PANEL([facility]) 2023 Next Appt Details Follow Up: 4 Weeks, Reason: f/up HF clinic Progress Notes * MARILIN Eddie SolaresDOB: [birth year] (67 yo M)Acc No.[id number]:06/24/2023 PROGRESS NOTE Patient: Eddie BURNHAM Provider: Beck CORREA MD :1955 A ge:67 Y S ex:Male Date:06/24/2023 c #:[id number] Address:[address] [place], [place] [id number] Pcp:BOGDAN FERGUSON Subjective: * Chief Complaints: * [...] or a close contact traveled outside the [facility] and you are now ill? N o [...] follow up. He was initially admitted to [facility] on 05/12/2023 for for a COPD exacerbation [...] or syncope. He plans to remain in [place] until 08/10/23 when he returns home to [place]. * ROS: C ARDIOLOGY: Constitutional: N egative [...] * P ast Orders: L ab:BASIC METABOLIC PANEL([facility]) (Order Date - 06/17/2023) (Collection Date & [...] CORREA MD Date: 0 06/24/2023 Generated for Julieni malorie/Sowmya/Maryam on: 0 11/10/2024 10:42 AM EDT History and Physical Notes * HPI (History of Present Illness) Category Sub-Category Detail Notes Category Not es Patient History Mr. Gaston presents today for follow up. He was initially admitted to [facility] on 05/12/2023 for for a COPD exacerbation [...] or syncope. He plans to remain in [place] until 08/10/23 when he returns home to [place]. First Point of Contact Screening Do any [...] ill? : No OFFICE USE (If universal [employer] is not in place, provide patients age [...]
--- NOTE | 2024-11-10 10:03 | A.OFFVIS_ITS ---
Vital Signs 11/10/24 10:04 Height 6 ft 1 in Weight 219 lb 9.286 oz BMI 29.0 BP 120/80 Blood Pressure Location Rt brachial Position Sitting Pulse 69 Pulse Oximetry (%) 97 Oxygen Delivery Method Room Air Intake Visit Reasons: PSA Intake Note: Patient presents for PsA. Allergies rosuvastatin Allergy (Severe, Verified 11/10/24 10:03) muscle aches HPI HPI PSA: Details: MS 1 hour PsA flare involves pain and swelling in feet. Occurs every few months. He wakes up with foot pain. No current swelling. He had an ER visit for left-sided chest pain. He went to [facility] who performed chest x-ray and CT chest, which did not reveal cause of his pain. 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 Menendez who personally reviewed CT images and may have saw pneumonia in the area where he localized pain. At this time he denies chest pain. [facility] Medical History Hearing deficit Chronic restrictive lung disease Pulmonary nodules Syncope Essential tremor Hypercholesterolemia Hypertension Coronary artery disease COPD (chronic obstructive pulmonary disease) Aortic aneurysm Pulmonary fibrosis Surgical History S/P placement of cardiac pacemaker Aortic valve replaced History of aneurysm History of heart artery stent History of open reduction and internal fixation (ORIF) procedure Family History Mother No problems noted. Father No problems noted. Social History Housing: House Alcohol intake: current Alcohol intake frequency: a few times a week Alcohol type: beer Comment: 2x a week 1-2 drinks Patient Tobacco Use Status: Former Tobacco user Tobacco use type: Cigarette Years Smoked: quit 1996 e-Cigarette/Vaping Use: Never Used Second Hand Smoke Exposure: No service: No Current occupational status: employed Cognitive needs: No Hearing needs: No Vision needs: Yes Physical Exam Vital Signs: Last Vital Signs Pulse 69 11/10/24 10:04 BP 120/80 11/10/24 10:04 Pulse Ox 97 11/10/24 10:04 Oxygen Delivery Method Room Air 11/10/24 10:04 BMI result Body Mass Index 29.0 Const Other: General: Comfortable CVS: RRR Respiratory: clear to auscultation bilaterally. Good respiratory effort Skin: No lesions seen MSK: Normal range of motion of upper extremities and lower extremities. Left knee crepitus present. Bilateral MTP tenderness. No dactylitis present. No synovitis present. Assessment & Plan Assessment & Plan (1) Psoriatic arthritis: Comment: Controlled on Taltz. He has a flare-up every 3-4 months treated with Tylenol 1300 mg daily for duration of flare. He avoids oral NSAIDs due to cardiac history (AVR, CHF, atrial fibrillation). Rheumatology history: Initially he had psoriasis that eventually developed a psoriatic arthritis involving his feet presenting with swelling and pain in feet. Otelza ineffective Humira started January 2023. Effective I DC'd it 11/2023 due to his history of CHF. Taltz started 12/2023 effective for skin and joints. Code(s): L40.50 - Arthropathic psoriasis, unspecified Category: Medical Plan: Labs from October 2023 reviewed with patient for drug monitoring Inflammatory markers ordered Continue Taltz 80 mg subcutaneous injection every 4 weeks Log of symptoms for next visit Return to clinic in 3 months (2) Gout: Comment: Controlled on allopurinol 300 mg daily. Uric acid level is at goal <6.0. October 2023 uric acid 4.4. Rheumatology history: Allopurinol started February 2023 Code(s): M10.9 - Gout, unspecified Category: Medical Qualifiers: Chronicity: chronic Gout etiology: idiopathic Gout site: multiple sites Presence of tophus: without tophus Qualified Code(s): M1A.09X0 - Idiopathic chronic gout, multiple sites, without tophus (tophi) Plan: Continue allopurinol 300 mg daily Return to clinic in 3 months (3) Long-term use of immunosuppressant medication: Code(s): Z79.60 - MCFP (current) use of unspecified immunomodulators and immunosuppressants Category: Medical Plan: See above Orders: Orders C Reactive Protein Today L40.50 - Arthropathic psoriasis, unspecified, Z79.60 - 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 principal (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) use of unspecified immunomodulators and immunosuppressants Erythrocyte Sedimentation Rate Today L40.50 - Arthropathic psoriasis, unspeci fied, Z79.60 - 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
[2024-11-10 10:04] VITALS: BP 120/80; PULSE 69; O2SAT 97; BMI 29.0
--- OUTSIDE RECORDS SUMMARY | 2024-11-10 10:42 | XMS_ITS | Patient Health Record ---
[facility] Address [address] [address] Care Team Providers Care Coach Builder Name Role Phone Joey Shetty Primary Care Provider Lilian Augustin Unavailable [phone] Allergies No Known Allergies Reason For Referral No Information Medications Medication SIG (Take, Route, Frequency, Duration) Notes Start Date End Date Status Propranolol HCl 10 MG (Prior Auth#:[id number]) Oral; Duration: 90 Active dilTIAZem HCl ER Beads 180 MG 1 capsule Orally Once a day; Duration: 30 day(s) Not-Jose ing Warfarin Sodium 7.5 MG (Prior Auth#:[id number]) Oral; Duration: 90 Active Otezla 30 MG (Prior Auth#:[id number]) Oral; Duration: 90 Not-Taking Metoprolol Tartrate 75 MG 1 tablet with food Orally Twice a day; Duration: 30 day(s) Active Humira Not-Taking Nebulizer Active Medrol 4 MG as directed Orally 02/22/2021 Not-Taking Carbidopa-Levodopa 25-100 MG (Prior Auth#:[id number]) Oral; Duration: 90 Active Advair Diskus 250-50 MCG/DOSE (Prior Auth#:[id number]) Inhalation; Duration: 90 Not-Jose ing Meloxicam 7.5 MG (Prior Auth#:[id number]) Oral; Duration: 45 Active Spiriva Respimat 2.5 MCG/ACT (Prior Auth#:[id number]) Inhalation; Duration: 30 Not-Jose ing Furosemide 20 MG as directed Orally O nce a day Not-Taking Atorvastatin Calcium 40 MG (Prior Auth#:[id number]) Oral; Duration: 90 Active Taltz 40 MG/0.5ML 1 mL Subcutaneous Active Albuterol Sulfate HFA 108 (90 Base) MCG/ACT (Prior Auth#:[id number]) Inhalation; Duration: 30 Active Aspirin Low Dose 81 MG (Prior Auth#:[id number]) Oral; Duration: 90 Active Amantadine HCl 100 MG Oral; Duration: 90 Days Active Bumetanide 2 MG 1 tablet Orally Once a day Active Magnesium Oxide 400 (241.3 Mg) MG (Prior Auth#:[id number]) Oral; Duration: 90 Active Rosuvastatin Calcium 20 MG (Prior Auth#:[id number]) Oral; Duration: 90 Not-Taking Trelegy Ellipta Acti ve Isosorbide Mononitrate ER 30 MG (Prior Auth#:[id number]) Oral; Duration: 90 Active Immunizations Vaccine Route Administration Date [...] Problem Acquired hammer toe of right foot (5023925870706444 ) Other hammer toe(s) (acquired), right foot (M20.41) Active confirmed Problem Peripheral vascular disease (857349918) Peripheral vascular disease (I73.9) Active confirmed Problem Psoriatic arthritis (634356947) Psoriatic arthritis (L40.50) Active confirmed Possible Problem Localized, primary osteoarthritis of the ankle and/or foot (051728709) Osteoarthritis of right ankle and foot (M19.071) Active confirmed Problem Localized, primary osteoarthritis of the ankle and/or foot (513819875) Osteoarthritis of left ankle and foot (M19.072) Active confirmed Problem Bilateral atherosclerosis of arteries of lower limbs (disorder) (4744269022425728 7) Atherosclerosis of [place] artery of both lower extremities, with unspecified presence of clinical manifestation (I70.203) Active confirmed Q7(A), Q8(2B), Q9(1B,2C) Problem Gouty arthritis of left foot (4503717055159152 ) Gouty arthritis of left foot (M10.9) Active confirmed Problem Localized, primary osteoarthritis of the ankle and/or foot (379383627) Arthritis of joint of lesser toe, right (M19.071) Active confirmed Vital Signs Blood pressure diastolic 70 mm Hg 09/09/2024 Height 6ft1in in 09/09/2024 Blood pressure systolic 120 mm Hg 09/09/2024 Weight 220 lbs 09/09/2024 BMI 29.02 kg/m2 09/09/2024 Encounters Encounter Location Date Provider Diagnosis [address] [address] 11/11/2023 Lilian Perica Tinea unguium B35.1 ; Pain in right toe(s) M79.674 and Pain in left toe(s) M79.[address] [address] 12/22/2023 Lilian Perica Ingrown nail L60.[address] [address] 01/21/2024 Lilian Perica Tinea unguium B35.1 ; Pain in right toe(s) M79.674 and Pain in left toe(s) M79.[address] [address] 04/01/2024 Lilian Perica Tinea unguium B35.1 ; Other hammer toe(s) (acquired), right foot M20.41 ; Pain in right toe(s) M79.674 ; Pain in left toe(s) M79.675 and Arthritis of joint of lesser toe, right M19.[address] [address] 06/17/2024 Lilian Perica Atherosclerosis of [place] artery of both lower extremities, with unspecified presence of clinical manifestation I70.203 ; Peripheral vascular disease I73.9 ; Tinea unguium B35.1 ; Pain in right toe(s) M79.674 and Pain in left toe(s) M79.675 [facility] [address] [place] [address] 09/09/2024 Lilian Monte Atherosclerosis of [place] artery of both lower extremities, with unspecified [...] disease (ICD-10 - I73.9) 06/17/2024 Atherosclerosis of [place] artery of both lower extremities, with unspecified presence of clinical manifestation (ICD-10 - I70.203) Q7(A), Q8(2B), Q9(1B,2C) 09/09/2024 Tinea unguium (ICD-10 - B35.1) 09/09/2024 Atherosclerosis of [place] artery of both lower extremities, with unspecified [...] Details Provider Name:Lilian ferris, 12/02/2024 11:15:00 AM, [address] [place] [address], [phone], Insurance Providers Payer Name Payer Address Payer Phone Subscriber Number Group Number Insured Name Patient Relationship to Insured Coverage Start Date Coverage End Date [employer] Medicare [id number] [address] [address] [place] [address] [id number] Eddie Styles Self - patient is the insured Medical (General) History Medical History History ICD Code Anxiety Heart disease Lung disease Psoriasis/eczema Measles Chicken pox Mumps Vascular grafts Joint implants/screws Replacement Heart Valves Surgical History Surgery Date(Month/Year) aortic valve 08/1996 colonoscopy 05/31/21 Hospitalization History Reason Date(Month/Year) [facility]- Having trouble breathing and retaining fluids - atypical pneumonia 06/03
--- OUTSIDE RECORDS SUMMARY | 2024-11-10 10:42 | XMS_ITS | Data Portability ---
Author Organization [place] [facility] Address [address] [place] [address] Care Team Providers Care Throat Cutter Name Role Phone HUE STEWART Primary Care [...] Time Sensorineural hearing loss of bilateral ears [id number] Active 2023 JOEL Rojas MD [address] [facility] [address], [place], [address], [place] [facility] 09:33:49 Problem Notes None recorded. Procedures Surgical History Date Name Laterality Status Provider Name and Address Organization Details Recorded Time 04/11/2024 Comp Audio with Tymps - 55457 & 02748 completed CARLOZ GRIFFIN, AUD [address] [address], [place], [address], [place] [facility] 04/11/2024 09:52:08 Imaging Results None recorded. Procedure Notes None recorded. Medical Equipment None [...] Updated DateTime 04/11/2024 185.42 cm 31 kg/m2 732215.21 g Kevin Rich [place] - [facility] 04/11/2024 09:21:01 Social History None recorded. Functional Status None recorded. Mental Status None recorded. Family History Nothing Reported. Medical History Condition Response Heart Problems Y Past Encounters Encounter ID Performer Location Encounter Start Date Encounter Closed Date Diagnosis/Indication Diagnosis SNOMED-CT Code Diagnosis ICD10 Code Diagnosis Note [id number] JOEL ANDERSON MD [facility] on [address] [place] [phone] 04/11/2024 08:53:39 04/11/2024 10:11:29 Sensorineural hearing loss of bilateral ears [id number] H90.3 Rechecked audio today (Pringle and Rinne were normal).Au diological evaluation results: 04/11/2024 ight ear:Normal sloping to a moderate sensorineu ral hearing loss above 4K Hz with excellent word recognitio n.Left ear:Normal through 2 kHz sloping to moderately severe sensorineu ral hearing loss with excellent word recognitio n. Tympanomet ry:Right Ear:Type ALeft Ear:Type A Repeat audio today showed asymmetric hearing loss [...] Vivas Member ID Guarantor Name 04/11/2024 1 [facility] (MEDICARE REPLACEMENT/A DVANTAGE - PPO) [id number] [address] Murray [id number] Eddie Styles Notes Date Note Type Note [...] despite this hearing loss. JOEL ANDERSON MD [address] [place] [address], [place], [address], [facility] - [facility] 04/11/2024 10:10:32
== END 2024-11-10 11:29 | disposition home or self-care (01) ==
PROVIDERS: PCP Internal Medicine; Visit Provider Internal Medicine Rheumatology
DX: L40.50 Arthropathic psoriasis, unspecified (principal); M1A.09X0 Idiopathic chronic gout, multiple sites, without tophus (tophi); Z79.60 Long term (current) use of unspecified immunomodulators and immunosuppressants
CPT/HCPCS: 99214; G2211

== ENCOUNTER 2024-11-22 09:57 | Outpatient (REF) | payer MEDICARE, SELFPAY ==
--- OUTSIDE RECORDS SUMMARY | 2023-06-24 10:30 | XMS_ITS ---
Author Organization [facility] Billing Info Address [address] [place] [address] Care Team Providers Care Label Printer Name Role Phone BOGDAN FERGUSON Primary Care Provider SUNNYERICA Unavailable [phone] Allergies No Known Allergies REASON FOR VISIT [...] 06/24/2023 Encounters Encounter Location Date Provider Diagnosis [id number] [address] [phone] 06/24/2023 ERICA CORREA Hypokalemia E87.6 ; Acute [...] Test Test Name Order Date BASIC METABOLIC PANEL([facility]) 2023 Next Appt Details Follow Up: 4 Weeks, Reason: f/up HF clinic Progress Notes * MARILIN Eddie SolaresDOB: [birth year] (67 yo M)Acc No.[id number]:06/24/2023 PROGRESS NOTE Patient: Eddie BURNHAM Provider: Beck CORREA MD :1955 A ge:67 Y S ex:Male Date:06/24/2023 c #:[id number] Address:[address] [place], [place] [id number] Pcp:BOGDAN FERGUSON Subjective: * Chief Complaints: * [...] or a close contact traveled outside the [facility] and you are now ill? [...] follow up. He was initially admitted to [facility] on 05/12/2023 for for a COPD exacerbation [...] or syncope. He plans to remain in [place] until 08/10/23 when he returns home to [place]. * ROS: C ARDIOLOGY: Constitutional: N egative [...] * P ast Orders: L ab:BASIC METABOLIC PANEL([facility]) (Order Date - 06/17/2023) (Collection Date & [...] 06/24/2023 Generated for Julieni malorie/Sowmya/Maryam on: 0 11/22/2024 10:46 AM EDT History and Physical Notes * HPI (History of Present Illness) Category Sub-Category Detail Notes Category Not es Patient History Mr. Gaston presents today for follow up. He was initially admitted to [facility] on 05/12/2023 for for a COPD exacerbation [...] or syncope. He plans to remain in [place] until 08/10/23 when he returns home to [place]. First Point of Contact Screening Do any [...] ill? : No OFFICE USE (If universal [employer] is not in place, provide patients age [...]
--- NOTE | ~2024-11-22 | XR_ITS ---
EXAMINATION: XR FOOT 3 OR MORE VIEWS BILATERAL CLINICAL INFORMATION: L40.50 - Arthropathic psoriasis, unspecified COMPARISON: Radiographs of the right foot and left foot on October 11, 2022 TECHNIQUE: AP, lateral, and oblique views of the right and left foot. FINDINGS: Right: Second toe is held in flexion at the level of the distal interphalangeal joint. Postoperative changes to the distal aspect of the second proximal phalanx. No fracture or destructive bone lesion. No dislocation. Similar bony protuberance at the level of the second metatarsal head. Similar mild degenerative changes of the first metatarsophalangeal joint. No radiopaque foreign body. Left: Normal alignment. No fracture or destruction bone lesion. Joint spaces are preserved. No radiopaque foreign body. XR/XR Foot Manuel 3V IMPRESSION: Right: Similar mild degenerative changes at the first MTP joint, postoperative images changes of the second proximal phalanx and flexion contracture of the second toe. No destructive bone lesions. Left: No destructive bone lesions. Electronically signed by: Rodolfo Owens MD 11/22/2024 10:36 AM EDT
--- OUTSIDE RECORDS SUMMARY | 2024-11-22 10:46 | XMS_ITS | Clinical Summary ---
Author Organization [address] [facility] Address [address] [place] [address] Phone Care Team Providers Care Prepared Foods Service Team Member Name Role Phone Joey Shetty MD Primary Care Provider [phone] Allergies No known active allergies Medications isosorbide [...] needed. Active meloxicam (MOBIC) 15 mg tablet Active cholecalciferol (VITAMIN D-3) 25 mcg (1,000 unit) capsule Take by mouth. Activ e aspirin 81 mg chewable tablet Take 81 mg by mouth daily. Active atorvastatin (LIPITOR) 40 mg tablet Take 40 mg by mouth daily. Active warfarin (COUMADIN) 7.5 mg tablet Take 7.5 mg by mouth daily. [facility] managing coumadin Active propranoloL (INDERAL) 10 mg [...] (one) time each day. 90 tablet 3 Active Active Problems Problem Noted Date Diagnosed Date Pacemaker 08/21/2024 Overview (08/21/2024): March 29, 2018 status post successful implantation of Biotronik dual-chamber permanent pacemaker due to recurrent syncope with documented prolonged pauses with sick sinus syndrome by Dr. Wolfe at [facility] Assessment & Plan (08/21/2024 9:28 AM EDT): Device functioning well on last check. Periodic pacing. Continue to monitor via [facility] device clinic. History of mechanical aortic valve replacement 0 08/21/2024 Overview (08/21/2024): 1996 bicuspid aortic valve status post mechanical [facility] [employer]vel[employer] aortic valve replacement Assessment & Plan (11/14/2024 4:22 PM EDT): Functioning well on last echocardiogram from August 2023. Continue to monitor by echocardiogram as per ACC standards and as clinically indicated. Continue with warfarin. Assessment & Plan (08/21/2024 9:28 AM EDT): Functioning well on last echocardiogram from August 2023. Continue to monitor by echocardiogram as per ACC standards and as clinically indicated. Continue with warfarin. SIENA on CPAP 08/21/2024 Assessment & Plan (11/14/2024 4:22 PM EDT): Compliant with device therapy. Assessment & Plan (08/21/2024 9:28 AM EDT): Continue with CPAP. Acute on chronic diastolic h eart failure (CMS/HCC V24, CMS/HCC V28) 09/18/2022 Assessment & Plan (11/14/2024 6:45 PM EDT): Ernie's overall condition appears improved. He has chronic diastolic heart failure with preserved left ventricular systolic function and longstanding persistent atrial fibrillation. He has a mechanical aortic valve replacement which is functioning well and he has stable dilatation of the thoracic aorta many years following surgical correction of an ascending thoracic aortic aneurysm. He feels that his breathing has improved with favorable changes in his diet as well as with the addition of Farxiga to his regimen. I am not making any changes at this time. Will make arrangements for follow-up assessment in the office in about 4 months. Assessment & Plan (08/21/2024 9:28 AM EDT): [...] CMS /HCC V28) 11/27/2021 Assessment & Plan (11/14/2024 6:43 PM EDT): Rate is well-controlled and the patient is maintained on warfarin in the setting of a mechanical aortic valve replacement. Assessment & Plan (08/21/2024 9:28 AM EDT): Persistent on last device check. Rate controlled. CHADSVASc 4. On warfarin for mechanical aortic valve. Continue with metoprolol and warfarin. Followed by non [facility] coumadin clinic. Orders: ECG 12 lead [...] Followed by CT surgery Assessment & Plan (11/14/2024 6:43 PM EDT): As noted the patient has had surgical repair of an ascending aortic aneurysm in the past. He has stable dilatation in this region and a recent CT scan of the chest does not demonstrate any significant changes in the past few years. He is followed by Dr. Kulwinder Prado of the cardiac surgical service. He recommends follow-up CT scanning in 2 years. Assessment & Plan (08/21/2024 9:28 AM EDT): Status post graft repair in 1996. Aneurysm noted above graft and followed closely by CT surgery. Last echocardiogram showed 6.0 cm while non-contrast CT chest showed 5.5 cm. Blood pressure well controlled. Continue with metoprolol, bumetanide and isosorbide. Continue to monitor by echocardiogram as per ACC standards and as clinically indicated. Dyslipidemia 11/13/2020 Assessment & Plan (11/14/2024 4:22 PM EDT): Assessment & Plan (08/21/2024 9:28 AM EDT): Continue with atorvastatin. Essential hypertension 11/13/2020 Assessment & Plan (11/14/2024 6:43 PM EDT): Well-controlled on his present medical regimen. No changes are recommended. Assessment & Plan (08/21/2024 9:28 AM EDT): [...] disease with patent stent Assessment & Plan (11/14/2024 6:43 PM EDT): Ernie is not reporting any active symptoms to suggest angina pectoris. His effort capacity appears to be slightly improved. He is tolerating his present medical regimen as well as lipid-lowering therapy. Assessment & Plan (08/21/2024 9:28 AM EDT): [...] from 2021 SOB (shortness of breath) 10/31/2020 Assessment & Plan (11/14/2024 4:22 PM EDT): The patient mild exertional breathlessness which has been clinically stable. Dyspnea has been most likely multifactorial. He has longstanding underlying pulmonary disease as well as a history of diastolic heart failure with a favorable response to diuretic therapy and Farxiga. He has a prior mechanical aortic valve replacement as well as chronic atrial fibrillation. He has mild peripheral edema without evidence of pulmonary vascular congestion or jugular venous distention. He has generally done a good job of reducing sodium content of his diet. Encounters Date Type Department Care Team Description 11/14/2024 1:30 PM EDT Office Visit [facility] [address] [place] [address] David White MD SOB (shortness of breath) (Primary Dx); SIENA on CPAP; Coronary artery disease involving [place] coronary artery of [place] heart without angina pectoris; Acute on chronic diastolic heart failure (CMS/HCC V24, CMS/HCC V28); Aneurysm of ascending aorta without rupture (CMS/HCC V24); Persistent atrial fibrillation (CMS/HCC V24, CMS/HCC V28); Essential hypertension; History of mechanical aortic valve replacement; Dyslipidemia 09/16/2024 7:15 AM EDT Ancillary Procedure [facility] [address] [place] [address] from Last 3 Months Medical [...] Sign Reading Time Taken Comments Blood Pressure 130/78 11/14/2024 1:15 PM EDT Pulse 80 11/14/2024 1:15 PM EDT Temperature - - Respiratory Rate - - Oxygen Saturation 96% 11/14/2024 1:15 PM EDT Inhaled Oxygen Concentration - - Weight 98.8 kg (217 lb 14.4 oz) 11/14/2024 1:15 PM EDT Height 185.4 cm (6' 1 ) 11/14/2024 1:15 PM EDT Body Mass Index 28.75 11/14/2024 1:15 PM EDT Plan of Treatment Upcoming Encounters Date Type Department Care Team (Late st Contact Info) Description 03/23/2025 1:00 PM EST Ancillary Procedure [facility] [address] [place] [phone] 04/03/2025 9:20 AM EST Office Visit [facility] [address] [place] [phone] David White MD [address] [place] [address] [address] [place] [address] Health Maintenance Due Date Last Done Comments Abdominal Aortic Aneurysm (AAA) Screen 04/19/2022 Cholesterol Screening (Lipid Panel) 04/19/2022 Colorectal Cancer Screening: Colonoscopy 04/19/2022 Depression Screening 04/19/2022 Falls Risk Assessment 04/19/2022 Hepatitis C Screening 04/19/2022 Medicare Annual Wellness Visit 04/19/2022 Social Influencers of Health Screening 04/19/2022 Influenza Vaccine (#1) 2025 , 02/07/2023, 01/25/2022, Additional history exists Hypertension/CHF/CAD Annual BMP Blood Test 03/30/2025 03/30/2024, 04/18/2021 DTaP,Tdap,and Td Vaccines (3 - Td or Tdap) 10/13/2034 10/13/2024, 10/01/2017 Zoster Vaccines Completed 03/02/2021, 12/27/2020 Pneumococcal Vaccine: 50+ Years Completed 10/08/2022, 02/11/2016 RSV Immunization Adult Patients Completed 01/30/2023 COVID-19 Vaccine Completed 08/23/2024, , 01/30/2023, Additional [...] this topic Medical Devices Implanted Type Area Envelope Folder Device Identifier Shelf Expiration Date Model / Serial / Lot Tamela-Souleymane Mara 8 Narayan [id number] Implanted:03/11 (Quantity not on file) Cardiac Pacemaker [employer] EDORA 8 NARAYAN / [id number] / Procedures Procedure Name Priority Date/Time Associated Diagnosis Comments CARDIAC DEVICE CHECK- REMOTE- MURJ Routine 09/16/2024 7:13 AM EDT COMPREHENSIVE METABOLIC PANEL Routine 03/30/2024 11:52 AM EST from Last 3 Months or Most Recently Relevant to Health Maintenance Results * Cardiac device check - Remote- MURJ (09/16/2024 7:13 AM EDT) Date Time Interrogation Session [id number] CV DEVICE CHECK Type Interrogation Session RemoteScheduled CV DEVICE CHECK Implantable Pulse Generator Envelope Folder BIO CV DEVICE CHECK Implantable Pulse Generator Type IPG CV DEVICE CHECK Implantable Pulse Generator Model Edora 8 NARAYAN CV DEVICE CHECK Implantable Pulse Generator Serial Number [id number] CV DEVICE CHECK Implantable Pulse Generator Implant Date [id number] CV DEVICE CHECK Battery Remaining Percentage 45.00 CV DEVICE CHECK Battery Status Middle of Service CV DEVICE CHECK Ronak Statistic RA Percent Paced 2.00 CV DEVICE CHECK Ronak Statistic RV Percent Paced 69.00 CV DEVICE CHECK Atrial Tachy Statistic AT/AF Jerome Percent 100.00 CV DEVICE CHECK Lead Channel [...] Narrative Procedure Note David Wolfe MD - 09/16/2024 IMPRESSION: Normal Remote: [...] 44 - 121 IU/L [facility] 1 Aspartate aminotransferase (AST) 45(H) 0 - 40 IU/L [facility] 1 Alanine Aminotransferase (ALT) 16 0 - 44 IU/L [facility] 1 03/30/2024 11:5 2 AM EST 03/30/2024 Narrative [facility] 1 - 03/31/2024 3:06 AM EST Performed at: 01 - [facility] [address] [id number] Paste Worker: Jannie Hughes MD, Phone: [phone] us David White MD LAB BLOOD ORDERABLES Final Res ult [facility] 1 from Last 3 Months or Most Recently Relevant to Health Maintenance Insurance [employer] MEDICARE Care Teams Prepared Foods Service Team Member Relationship Specialty Start Date End Date Joey Shetty MD [address] [place] [address] [address] [facility] [place] [address] PCP - General 08/03/13
--- OUTSIDE RECORDS SUMMARY | 2024-11-22 10:47 | XMS_ITS | Data Portability ---
Author Organization [place] - [facility], Allergy Address [address] [place] [address] Care Team Providers Care Transportation Technician Name Role Phone HUE STEWART Primary Care Provider [phone] Assessment No assessment recorded. Plan of Treatment [...] Time Sensorineural hearing loss of bilateral ears [id number] Active 2023 JOEL Rojas MD [address] [facility] [address], [place], [address], [place] [facility] 09:33:49 Problem Notes None recorded. Procedures Surgical History Date Name Laterality Status Provider Name and Address Organization Details Recorded Time 04/11/2024 Comp Audio with Tymps - 60207 & 98588 completed CARLOZ GRIFFIN, AUD [address] [address], [place], [address], [place] - [facility] 04/11/2024 09:52:08 Imaging Results None recorded. Procedure [...] Updated DateTime 04/11/2024 185.42 cm 31 kg/m2 290660.21 g Kevin Rich [place] - [facility] 04/11/2024 09:21:01 Social History None recorded. Functional Status None recorded. Mental Status None recorded. Family History Nothing Reported. Medical History Condition Response Heart Problems Y Past Encounters Encounter ID Performer Location Encounter Start Date Encounter Closed Date Diagnosis/Indication Diagnosis SNOMED-CT Code Diagnosis ICD10 Code Diagnosis Note [id number] JOEL ANDERSON MD [facility] on [address] [place] [address] 04/11/2024 08:53:39 04/11/2024 10:11:29 Sensorineural hearing loss of bilateral ears [id number] H90.3 Rechecked audio today ([facility] [employer]inne [...] Vivas Member ID Guarantor Name 04/11/2024 1 [facility] (MEDICARE REPLACEMENT/A DVANTAGE - PPO) [id number] Mitchell Murray [id number] Eddie Styles Notes Date Note Type Note [...] despite this hearing loss. JOEL ANDERSON MD [address] [place] [address], [place], [address], [facility] - [facility] 04/11/2024 10:10:32
--- OUTSIDE RECORDS SUMMARY | 2024-11-22 10:47 | XMS_ITS | Patient Health Record ---
Author Organization [facility] [place] Address [address] [facility] [place] [address] Care Team Providers Care Crusher Machine Operator Name Role Phone Joey Shetty Primary Care Provider Lilian Augustin Unavailable [phone] Allergies No Known Allergies Reason For Referral No Information Medications Medication SIG (Take, Route, Frequency, Duration) Notes Start Date End Date Status Propranolol HCl 10 MG (Prior Auth#:[id number]) Oral; Duration: 90 Active dilTIAZem HCl ER Beads 180 MG 1 capsule Orally Once a day; Duration: 30 day(s) Not-Jose ing Warfarin Sodium 7.5 MG (Prior Auth#:[id number]) Oral; Duration: 90 Active Otezla 30 MG (Prior Auth#:[id number]) Oral; Duration: 90 Not-Taking Metoprolol Tartrate 75 MG 1 tablet with food Orally Twice a day; Duration: 30 day(s) Active Humira Not-Taking Nebulizer Active Medrol 4 MG as directed Orally 02/22/2021 Not-Taking Carbidopa-Levodopa 25-100 MG (Prior Auth#:[id number]) Oral; Duration: 90 Active Advair Diskus 250-50 MCG/DOSE (Prior Auth#:[id number]) Inhalation; Duration: 90 Not-Jose ing Meloxicam 7.5 MG (Prior Auth#:[id number]) Oral; Duration: 45 Active Spiriva Respimat 2.5 MCG/ACT (Prior Auth#:[id number]) Inhalation; Duration: 30 Not-Jose ing Furosemide 20 MG as directed Orally O nce a day Not-Taking Atorvastatin Calcium 40 MG (Prior Auth#:[id number]) Oral; Duration: 90 Active Taltz 40 MG/0.5ML 1 mL Subcutaneous Active Albuterol Sulfate HFA 108 (90 Base) MCG/ACT (Prior Auth#:[id number]) Inhalation; Duration: 30 Active Aspirin Low Dose 81 MG (Prior Auth#:[id number]) Oral; Duration: 90 Active Amantadine HCl 100 MG Oral; Duration: 90 Days Active Bumetanide 2 MG 1 tablet Orally Once a day Active Magnesium Oxide 400 (241.3 Mg) MG (Prior Auth#:[id number]) Oral; Duration: 90 Active Rosuvastatin Calcium 20 MG (Prior Auth#:[id number]) Oral; Duration: 90 Not-Taking Trelegy Ellipta Acti ve Isosorbide Mononitrate ER 30 MG (Prior Auth#:[id number]) Oral; Duration: 90 Active Immunizations Vaccine Route [...] Problem Acquired hammer toe of right foot (4124496097849966 ) Other hammer toe(s) (acquired), right foot (M20.41) Active confirmed Problem Peripheral vascular disease (593565690) Peripheral vascular disease (I73.9) Active confirmed Problem Psoriatic arthritis (933074421) Psoriatic arthritis (L40.50) Active confirmed Possible Problem Localized, primary osteoarthritis of the ankle and/or foot (814731718) Osteoarthritis of right ankle and foot (M19.071) Active confirmed Problem Localized, primary osteoarthritis of the ankle and/or foot (205393227) Osteoarthritis of left ankle and foot (M19.072) Active confirmed Problem Bilateral atherosclerosis of arteries of lower limbs (disorder) (7426103942048855 7) Atherosclerosis of [place] artery of both lower extremities, with unspecified presence of clinical manifestation (I70.203) Active confirmed Q7(A), Q8(2B), Q9(1B,2C) Problem Gouty arthritis of left foot (2019406685304478 ) Gouty arthritis of left foot (M10.9) Active confirmed Problem Localized, primary osteoarthritis of the ankle and/or foot (812053867) Arthritis of joint of lesser toe, right (M19.071) Active confirmed Vital Signs Blood pressure diastolic 70 mm Hg 09/09/2024 Height 6ft1in in 09/09/2024 Blood pressure systolic 120 mm Hg 09/09/2024 Weight 220 lbs 09/09/2024 BMI 29.02 kg/m2 09/09/2024 Encounters Encounter Location Date Provider Diagnosis [address] [address] 12/22/2023 Lilian Perica Ingrown nail L60.[address] [address] 01/21/2024 Lilian Perica Tinea unguium B35.1 ; Pain in right toe(s) M79.674 and Pain in left toe(s) M79.[address] [address] 04/01/2024 Lilian Perica Tinea unguium B35.1 ; Other hammer toe(s) (acquired), right foot M20.41 ; Pain in right toe(s) M79.674 ; Pain in left toe(s) M79.675 and Arthritis of joint of lesser toe, right M19.[address] [address] 06/17/2024 Lilian Perica Atherosclerosis of [place] artery of both lower extremities, with unspecified presence of clinical manifestation I70.203 ; Peripheral vascular disease I73.9 ; Tinea unguium B35.1 ; Pain in right toe(s) M79.674 and Pain in left toe(s) M79.[address] [address] 09/09/2024 Lilian Monte Atherosclerosis of [place] artery of both lower extremities, with unspecified presence of clinical manifestation I70.203 ; Tinea unguium B35.1 ; Pain in right toe(s) M79.674 and Pain in left toe(s) M79.675 Assessments Encounter Date Diagnosis (ICD Code) Assessment Notes Treatment Notes Treatment Clinical Notes Section Notes 12/22/2023 Ingrown nail (ICD-10 - L60.0) 01/21/2024 Tinea unguium (ICD-10 - B35.1) 04/01/2024 Tinea unguium (ICD-10 - B35.1) 04/01/2024 Other hammer toe(s) (acquired), right foot (ICD-10 - M20.41) 06/17/2024 Peripheral vascular disease (ICD-10 - I73.9) 06/17/2024 Atherosclerosis of [place] artery of both lower extremities, with unspecified presence of clinical manifestation (ICD-10 - I70.203) Q7(A), Q8(2B), Q9(1B,2C) 09/09/2024 Tinea unguium (ICD-10 - B35.1) 09/09/2024 Atherosclerosis of [place] artery of both lower extremities, with unspecified [...] Provider Name:Lilian ferris, 12/02/2024 11:15:00 AM, [address] [place], [address], Insurance Providers Payer Name Payer Address Payer Phone Subscriber Number Group Number Insured Name Patient Relationship to Insured Coverage Start Date Coverage End Date [employer] Medicare Adv-[id number] [address] [address] [place] [address] [id number] Eddie Styles Self - patient is the insured Medical (General) History Medical History History ICD Code Anxiety Heart disease Lung disease Psoriasis/eczema Measles Chicken pox Mumps Vascular grafts Joint implants/screws Replacement Heart Valves Surgical History Surgery Date(Month/Year) aortic valve 08/1996 colonoscopy 05/31/21 Hospitalization History Reason Date(Month/Year) [facility]- Having trouble breathing and retaining fluids - atypical pneumonia 06/03
== END 2024-11-22 09:58 | disposition home or self-care (01) ==
LOC: HO.XRAY 09:57
PROVIDERS: PCP Internal Medicine; Visit Provider Internal Medicine Rheumatology
DX: L40.50 Arthropathic psoriasis, unspecified (principal)
CPT/HCPCS: 73630

== ENCOUNTER → 2024-11-22 10:00 | Outpatient (BNV) | payer MEDICARE, SELFPAY | PROVIDERS: PCP Internal Medicine; Visit Provider Radiology Body Imaging | DX: L40.50 Arthropathic psoriasis, unspecified (principal); Z98.890 Other specified postprocedural states | CPT/HCPCS: 73630 ==

== ENCOUNTER 2024-11-28 09:32 | Outpatient (AMB) | payer MEDICARE, SELFPAY ==
--- OUTSIDE RECORDS SUMMARY | 2023-06-24 10:30 | XMS_ITS ---
Author Organization [facility]avide[facility] Billing Info Address [address] [place] [address] Care Team Providers Care Respiratory Care Program Director Name Role Phone BOGDAN FERGUSON Primary Care Provider SUNNYERICA Unavailable [phone] Allergies No Known Allergies REASON FOR VISIT 2 wks f/u [facility]- stopped metolazone, started potassium, review lab results Medications Medication SIG (Take, Route, Frequency, Duration) Notes Start Date End Date Status Isosorbide Mononitrate ER 30 MG 1 tablet in the morning Orally Once a day take with 60 mg tablet to equal 90 mg total daily Active Bumetanide 2 MG 1 tablet Orally Once a day for 90 days Active Magnesium Oxide 400 MG 1 tablet Orally T wice a day Active Isosorbide Mononitrate ER 60 MG 1 tablet in the morning Orally Once a day take with 30 mg tablet to equal 90 mg total daily Active Metolazone 5 MG 1 tablet Orally Once a day take on tablet 30 minutes prior to taking bumex Active Warfarin Sodium 5 MG 1 tablet Orally Onc e a day Active Aspirin 81 81 MG 1 tablet Orally Once a day Active Allopurinol 100 MG 1 tablet Orally Twic e a day Active Budesonide 0.5 MG/2ML 1 mL Inhalation Tw ice a day pulmicort Active Atorvastatin Calcium 40 MG 1 tablet Orally Once a day Active Vitamin D3 50 MCG (1999) 1 capsule Orally Once a day Active Potassium Chloride ER 20 MEQ 1 tablet with food Orally twice per day for 90 days Active Perforomist 20 MCG/2ML 2 mL Inhalation T wice a day for 90 days Active Sinemet 25-100 MG 2 tablets Orally Thr ee times a day Active Propranolol HCl 10 MG 1 tablet Orally Tw ice a day Active Metoprolol Tartrate 75 MG 1 tablet with food Orally Twice a day Active Social History Tobacco Use: Social History Observation Description Date Details (start date - stop date) Unknown if ever smoked NA - NA Tobacco Status: Question Answer Notes Patient is unknown if ever smoked Vital Signs Height 73 in 06/24/2023 Weight 228.8 lbs 06/24/2023 BMI 30.18 kg/m2 06/24/2023 Blood pressure systolic 118 mm Hg 06/24/19 24 Blood pressure diastolic 62 mm Hg 024 Heart Rate 78 /min 06/24/2023 Oximetry 94 06/24/2023 Encounters Encounter Location Date Provider Diagnosis [id number] [id number] [id number] 06/24/2023 ERICA CORREA Hypokalemia E87.6 ; Acute heart failure with preserved ejection fraction (HFpEF) I50.31 and Nonrheumatic aortic valve stenosis I35.0 Assessments Encounter Date Diagnosis (ICD Code) Assessment Notes Treatment Notes Treatment Clinical Notes Section Notes 06/24/2023 Hypokalemia (ICD-10 - E87.6) patients potassium was 3.3 on labs done on 06/17/23. patient reports that at that time he was only taking potassium 20mEQ daily. since then he has been tkaing 20mEQ BID. will recheck BMP at this time. 06/24/2023 Acute heart failure with preserved ejection fraction (HFpEF) (ICD-10 - I50.31) patient appears euvolemic today. Will continue current meds and refilling bumex 2mg daily. 06/24/2023 Nonrheumatic aortic valve stenosis (ICD-10 - I35.0) He has done well since his valve surgery. 05/14/2023 Echocardiogram: Normal global systolic left ventricular function. EF 50 to 55%. Regional wall motion was normal. Diastolic function was indeterminate due to absence of NSR. Right ventricular systolic function was normal. RVSP 46 mmHg. Moderate pulmonary hypertension. Aortic valve is reported to be a mechanical prosthesis and seems to be functioning normally with limited visualization. Plan Of Treatment Medication Medication Name Sig Start Date Stop Date Notes Bumetanide 2 MG 1 tablet Orally Once a day for 90 days Treatment Notes Assessment Notes Hypokalemia patients potassium w as 3.3 on labs done on 06/17/23. patient reports that at that time he was only taking potassium 20mEQ daily. since then he has been tkaing 20mEQ BID. will recheck BMP at this time. Acute heart failure with pre served ejection fraction (HFpEF) patient appears euvolemic today. Will continue current meds and refilling bumex 2mg daily. Nonrheumatic aortic valve stenosis He carr s done well since his valve surgery. 05/14/2023 Echocardiogram: Normal global systolic left ventricular function. EF 50 to 55%. Regional wall motion was normal. Diastolic function was indeterminate due to absence of NSR. Right ventricular systolic function was normal. RVSP 46 mmHg. Moderate pulmonary hypertension. Aortic valve is reported to be a mechanical prosthesis and seems to be functioning normally with limited visualization. Pending Test Test Name Order Date BASIC METABOLIC PANEL([facility]CHEM[facility]) 2023 Next Appt Details Follow Up: 4 Weeks, Reason: f/up HF clinic Progress Notes * MARILIN Eddie SolaresDOB: [birth year] (67 yo M)Acc No.[id number]:06/24/2023 PROGRESS NOTE Patient: Eddie BURNHAM Provider: Beck CORREA MD :1955 A ge:67 Y S ex:Male Date:06/24/2023 c #:[id number] Address:[address] [place], [place] [id number] Pcp:BOGDAN FERGUSON Subjective: * Chief Complaints: * 2 wks f/u [facility]- stopped metolazone, started potassium, review lab results * HPI: F irst Point of Contact Screening: Do any of the following apply to you? N ew rash or open sores N o F ever and/or chills in the past 7 days N o C ough N o M uscle or body aches (other than from an injury) N o S ore throat N o I n the past 3 weeks, have you or a close contact traveled outside the [facility] and you are now ill? N o O FFICE USE (If universal masking is not in place, provide patients age 2 years and older with a facemask to wear over their mouth and nose while in the practice.): Yee whaley answered no to all questions OR only answered yes to question 1 N o further action needed 0 06/24/2023 Yee whaley History: Mr. Gaston presents today for follow up. He was initially admitted to [facility] on 05/12/2023 for for a COPD exacerbation and congestive heart failure exacerbation. Pt was given 2 days of IV methylprednisolone 40 mg q.8 hours x2 days. On day 3, Pt was transitioned to 40 mg prednisone p.o. x3 days. Pt was given DuoNebs q.4 hours, performance nebs q.12 hours and p.r.n. albuterol inhaler for his COPD exacerbation. Pt was given 40 mg IV Lasix twice daily x5 days. He also received 3 doses of 5 mg of metolazone x2 days. Echo showed normal global systolic left ventricular function w/ an EF of 50-55% w/no regional wall motion abnormalities. Breathing improved and patient was discharged home in stable condition. He was discharged on oral bumex along with metolazone, which he has been using daily but upon f/u his K C; was 2 .7. He was placed on BID KCl and is here today for f/u. Today he feels really good. He is not having any c hest pain, sob, edema or orthopnea. No dizziness or syncope. He plans to remain in [place] until 08/10/23 when he returns home to [place]. * ROS: C ARDIOLOGY: Constitutional: N egative for: fever, chills or headaches..?Cardiovascular: N egative for: chest pain, chest pain with exertion, chest pressure, or palpitations.. E yes: Negative for: blurred vision, . R espiratory: N egative for: productive cough,. G astrointestinal: N egative for: difficulty swallowing, nausea, or vomiting, . G enitourinary: N egative for: urine retention , . I ntegumentary/Breast: N egative for: rashes or redness, . N eurological: N egative for:, confusion, or headache, . E ndocrine: N egative for: rash or skin changes, . H ematologic/Lymphatic: N egative for:, bleeding, . E xtremities: N egative for, ulcers, . * Medical History: * Surgical History: A ortic Valve Mechanical Replacement * Hospitalization/Major Diagno stic Procedure: [facility] COPD exacerbation, [facility]F [facility] worsening dyspnea on exertion and rest, atypical PNA, Afib, COPD 05/28/2023 * Family History: N o Family History documented.. * Social History: A lcohol Use Patient d oes not use alcohol T obacco Status Patient is u nknown if ever smoked I llicit Drug Use Patient/Family reports: N o illicit drug use A mbulatory Status : i s independent * Medications: T akingAllopurinol 100 MG Tablet 1 tablet Orally Twice a day Aspirin 81 81 MG Tablet Delayed Release 1 tablet Orally Once a day Atorvastatin Calcium 40 MG Tablet 1 tablet Orally Once a day Budesonide 0.5 MG/2ML Suspension 1 mL Inhalation Twice a day , Notes to Pharmacist: pulmicortBumetanide 2 MG Tablet 1 tablet Orally Once a day Isosorbide Mononitrate ER 30 MG Tablet Extended Release 24 Hour 1 tablet in the morning Orally Once a day take with 60 mg tablet to equal 90 mg total dailyIsosorbide Mononitrate ER 60 MG Tablet Extended Release 24 Hour 1 tablet in the morning Orally Once a day take with 30 mg tablet to equal 90 mg total dailyMagnesium Oxide 400 MG Tablet 1 tablet Orally Twice a day Metolazone 5 MG Tablet 1 tablet Orally Once a day take on tablet 30 minutes prior to taking bumexMetoprolol Tartrate 75 MG Tablet 1 tablet with food Orally Twice a day Perforomist 20 MCG/2ML Nebulization Solution 2 mL Inhalation Twice a day Potassium Chloride ER 20 MEQ Tablet Extended Release 1 tablet with food Orally twice per day Propranolol HCl 10 MG Tablet 1 tablet Orally Twice a day Sinemet 25-100 MG Tablet 2 tablets Orally Three times a day Vitamin D3 50 MCG (1999 [place]) Capsule 1 capsule Orally Once a day Warfarin Sodium 5 MG Tablet 1 tablet Orally Once a day Medication List reviewed and reconciled with the patientTaking Allopurinol 100 MG Tablet 1 tablet Orally Twice a day Taking Aspirin 81 81 MG Tablet Delayed Release 1 tablet Orally Once a day Taking Atorvastatin Calcium 40 MG Tablet 1 tablet Orally Once a day Taking Budesonide 0.5 MG/2ML Suspension 1 mL Inhalation Twice a day , Notes to Pharmacist: pulmicortTaking Bumetanide 2 MG Tablet 1 tablet Orally Once a day Taking Isosorbide Mononitrate ER 30 MG Tablet Extended Release 24 Hour 1 tablet in the morning Orally Once a day take with 60 mg tablet to equal 90 mg total dailyTaking Isosorbide Mononitrate ER 60 MG Tablet Extended Release 24 Hour 1 tablet in the morning Orally Once a day take with 30 mg tablet to equal 90 mg total dailyTaking Magnesium Oxide 400 MG Tablet 1 tablet Orally Twice a day Taking Metolazone 5 MG Tablet 1 tablet Orally Once a day take on tablet 30 minutes prior to taking bumexTaking Metoprolol Tartrate 75 MG Tablet 1 tablet with food Orally Twice a day Taking Perforomist 20 MCG/2ML Nebulization Solution 2 mL Inhalation Twice a day Taking Potassium Chloride ER 20 MEQ Tablet Extended Release 1 tablet with food Orally twice per day Taking Propranolol HCl 10 MG Tablet 1 tablet Orally Twice a day Taking Sinemet 25-100 MG Tablet 2 tablets Orally Three times a day Taking Vitamin D3 50 MCG (1999) Capsule 1 capsule Orally Once a day Taking Warfarin Sodium 5 MG Tablet 1 tablet Orally Once a day Medication List reviewed and reconciled with the patient * Allergies: N .K.A.no[Allergies Verified] Objective: * Vitals: H t: 73 in, Ht-cm: 185.42 cm, Wt: 228.8 lbs, Wt-k.78 kg, BMI:30.18, Weight Change: 4 lbs, Body Surface Area: 2.31, BP:118/62, HR:78, Oxygen sat %:94. * P ast Orders: L ab:BASIC METABOLIC PANEL([facility]) (Order Date - 06/17/2023) (Collection Date & Time - 06/17/2023 03:03 PM) Value Reference Range BLOOD UREA NITROGEN 20 7-20 - mg/dL BUN/CREATININE RATIO 25 H 10-20 - CALCIUM 9.5 8.4-10.2 - mg/dL CREATININE 0.80 0.7-1.5 - mg/dL EGFR Race Indifferent 96 >=60 - GLUCOSE 108 H 74-106 - MG/DL SODIUM 136 L 137-145 - MMOL/L POTASSIUM 3.3 L 3.5-5.1 - MMOL CHLORIDE 92 L 96-107 - MMOL/L CARBON DIOXIDE 38 H 22-32 - MMOL/L ANION GAP 6.0 3.0-11.0 - mEq/L CORRECTED SODIUM 136 135-146 - MMOL/L * Examination: C ARDIOLOGY: Constitutional: n o acute distress , . Head and Face: a traumatic, normocephalic , . Eyes: e xtraoccular muscles intact, sclera anicteric . ? Ears, Nose, Mouth, Throat: p atient can hear normal voice ,?. Neck: n o carotid bruits, JVD or lymphadenopathy . ? Respiratory: c lear to auscultation bilaterally, good inspiratory effort , . Cardiovascular: h olosystolic murmur, irregular rhythm, no rubs, or gallops. , . Gastrointestinal/Abdomen: a bdomen soft, nontender, non distended , . Musculoskeletal: g ait steady ,. Extremities: n o, clubbing, cyanosis, edema, tenderness?. Skin: c lean, dry and intact , . Neurologic/Psychiatric: appropriate mood and affect ,?. Assessment: * Assessment: 1. A cute heart failure with preserved ejection fraction (HFpEF) - I50.31 (Primary) 2 .?Hypokalemia - E87.6 3 . N onrheumatic aortic valve stenosis - I35.0 Plan: * Treatment: 2. H ypokalemia Notes: patients potassium was 3.3 on labs done on 06/17/23. patient reports that at that time he was only taking potassium 20mEQ daily. since then he has been tkaing 20mEQ BID. will recheck BMP at this time. 3. N onrheumatic aortic valve stenosis Notes: He has done well since his valve surgery.05/14/2023 Echocardiogram: Normal global systolic left ventricular function. EF 50 to 55%. Regional wall motion was normal. Diastolic function was indeterminate due to absence of NSR. Right ventricular systolic function was normal. RVSP 46 mmHg. Moderate pulmonary hypertension. Aortic valve is reported to be a mechanical prosthesis and seems to be functioning normally with limited visualization. * Procedure Codes: * Preventive Medicine: Quality Measures: F all Risk Assessment: Date of Screening Completed: 0 06/24/2023 Increased Fall Risk Factors: 3 or more predisposing conditions or Diagnosis on Problem List, Polypharmacy (takes 3 or more medications that adversely affects muscle function, coordination, and physical stability) History Falls in Past Year: N o falls in the past year I nfluenza Immunization Patient's I mmunization ordered or recommended (to be given at alternate location or alternate provider); vaccine not available at time of visit H igh Blood Pressure screening and follow up: Intervention Order N o W eight Assessment Above Normal BMI Follow-Up W eight monitoring L eft Ventricular Ejection Fraction Results (%) 5 0 Date 0 05/14/2023 * Follow Up: 4 Weeks (Reason: f/up HF clinic) * Care Plan Details* * Sign off status: Completed true * Provider: Beck CORREA MD Date: 0 06/24/2023 Generated for Jasper espana/Sowmya/Maryam on: 0 11/28/2024 10:05 AM EDT History and Physical Notes * HPI (History of Present Illness) Category Sub-Category Detail Notes Category Not es Patient History Mr. Gaston presents today for follow up. He was initially admitted to [facility] on 05/12/2023 for for a COPD exacerbation and congestive heart failure exacerbation. Pt was given 2 days of IV methylprednisolone 40 mg q.8 hours x2 days. On day 3, Pt was transitioned to 40 mg prednisone p.o. x3 days. Pt was given DuoNebs q.4 hours, performance nebs q.12 hours and p.r.n. albuterol inhaler for his COPD exacerbation. Pt was given 40 mg IV Lasix twice daily x5 days. He also received 3 doses of 5 mg of metolazone x2 days. Echo showed normal global systolic left ventricular function w/ an EF of 50-55% w/no regional wall motion abnormalities. Breathing improved and patient was discharged home in stable condition. He was discharged on oral bumex along with metolazone, which he has been using daily but upon f/u his VARGHESE; was 2.7. He was placed on BID KCl and is here today for f/u. Today he feels really good. He is not having any chest pain, sob, edema or orthopnea. No dizziness or syncope. He plans to remain in [place] until 08/10/23 when he returns home to [place]. First Point of Contact Screening Do any of the following apply to you? New rash or open sores: No Fever and/or chills in the past 7 days: No Cough: No Muscle or body aches (other than from an injury): No Sore throat: No In the past 3 weeks, have yo u or a close contact traveled outside the [place] and you are now ill? : No OFFICE USE (If universal [employer] is not in place, provide patients age 2 years and older with a facemask to wear over their mouth and nose while in the practice.):: Patient answered no to all questions OR only answered yes to question 1 No further action needed : 06/24/2023 Examination Category Sub-Category Detail Notes Category Not es CARDIOLOGY Constitutional: no acute distress , Head and Face: atraumatic, normocep halic , Eyes: extraoccular muscles intact, sclera anicteric Ears, Nose, Mouth, Throat: patient can h ear normal voice , Neck: no carotid bruits, J VD or lymphadenopathy Respiratory: clear to auscultatio n bilaterally, good inspiratory effort , Cardiovascular: holosystolic murmur, irregular rhythm, no rubs, or gallops. , Gastrointestinal/Abdomen: abdomen soft, nontender, non distended , Extremities: no, clubbing, cyanos is, edema, tenderness Musculoskeletal: gait steady , Skin: clean, dry and intac t , Neurologic/Psychiatric: appropriate mood and affect ,
--- NOTE | 2024-11-28 09:49 | AM.OFFWIN_ITS ---
Intake Vital Signs 11/28/24 09:55 Height 6 ft 1 in Weight 215 lb BMI 28.4 BP 108/52 L Blood Pressure Location Rt brachial Position Sitting Pulse 76 Pulse Source Pulse Oximeter Temp 98.0 F Temp Source Oral Pulse Oximetry (%) 96 Oxygen Delivery Method Room Air Intake Visit Reasons: EP-rt leg bug bite Intake Note: presents with a slow healing wound on right posterior calf, c/o soreness. present for 5 days Patient Tobacco Use Status: Former Tobacco user Allergies rosuvastatin Allergy (Severe, Verified 11/28/24 09:52) muscle aches Do you need a note to return to daycare/school/sports/work: No HPI HPI Comments History of Present Illness Details History - The patient is a 69-year-old male pres enting with a possible insect bite with secondary infection. - The patient noticed the issue on , initially suspecting it was due to rubbing against a chair brace. - The area became sore, and the patient applied hydrocortisone cream, but the condition worsened. - The patient's observed the area a nd noted it appeared infected, with redness and swelling. - The patient reports chronic body aches but denies any new or worsening symptoms such as fever or chills. - He denies other rashes, numbness, ting ling, calf pain, ankle pain, or foot pain. Physical Exam General: Cooperative, healthy appearing, comfortable, no acute distress and well developed Orientation: Patient oriented x3 Respiratory: Normal respiratory effort and able to speak in complete sentences. Clear to auscultation bilaterally. No w/r/r noted. Cardiovascular: RRR, no m/r/g noted. Normal S1 and S2 Skin: Large, circular dark, scabbed area noted on the right posterior calf with some erythema noted. No induration or streaking. No discharge or bleeding, no FB noted. No edema. MSK: FROM of the right lower leg. No calf tenderness noted. Patient was informed and verbally consented to the use of an ambient scribe for clinic note documentation during this visit [facility] Medical History Hearing deficit Chronic restrictive lung disease Pulmonary nodules Syncope Essential tremor Hypercholesterolemia Hypertension Coronary artery disease COPD (chronic obstructive pulmonary disease) Aortic aneurysm Pulmonary fibrosis Surgical History S/P placement of cardiac pacemaker Aortic valve replaced History of aneurysm History of heart artery stent History of open reduction and internal fixation (ORIF) procedure Family History Mother No problems noted. Father No problems noted. Social History Housing: House Alcohol intake: current Alcohol intake frequency: a few times a week Alcohol type: beer Comment: 2x a week 1-2 drinks Patient Tobacco Use Status: Former Tobacco user Tobacco use type: Cigarette Years Smoked: quit 1996 e-Cigarette/Vaping Use: Never Used Second Hand Smoke Exposure: No service: No Current occupational status: employed Cognitive needs: No Hearing needs: No Vision needs: Yes Review of Systems Const All systems reviewed & are unremarkable except as noted in HPI and below Physical Exam Vital Signs: Last Vital Signs Temp 98.0 F 11/28/24 09:55 Pulse 76 11/28/24 09:55 BP 108/52 L 11/28/24 09:55 Pulse Ox 96 11/28/24 09:55 Oxygen Delivery Method Room Air 11/28/24 09:55 BMI result Body Mass Index 28.4 Assessment & Plan Assessment & Plan (1) Cellulitis of right leg: Code(s): L03.115 - Cellulitis of right lower limb Plan Most likely insect bite 1. Possible Insect Bite With Secondary Infection - Initiate antibiotic therapy to address the infection and prevent further complications. - Keep area clean and dry - Elevate leg. - Monitor for any signs of systemic infection such as fever or chills. - Advise follow-up if symptoms do not improve or worsen. Medications: New doxycycline hyclate 100 mg PO BID 20 tabs 0RF 10 days Coding Level of Care Code Est Pt Level 3 (94322) Diagnoses Cellulitis of right leg L03.115
[2024-11-28 09:55] VITALS: BP 108/52; PULSE 76; TEMP 36.7; O2SAT 96; BMI 28.4
--- OUTSIDE RECORDS SUMMARY | 2024-11-28 10:05 | XMS_ITS | Clinical Summary ---
Author Organization [address] [facility] Address [address] [place] [address] Phone Care Team Providers Care Glaciologist Name Role Phone Joey Shetty MD Primary Care Provider Allergies No known active allergies Medications isosorbide [...] tablet Take 7.5 mg by mouth daily. [facility] managing coumadin Active propranoloL (INDERAL) 10 mg [...] sick sinus syndrome by Dr. Wolfe at [facility] Assessment & Plan (08/21/2024 9:28 AM EDT): [...] metoprolol and warfarin. Followed by non [facility] coumadin [facility]. Orders: ECG 12 [...] Description 11/14/2024 1:30 PM EDT Office Visit [facility] [address] [place] [address] David White MD SOB (shortness of breath) (Primary Dx); SIENA on CPAP; Coronary artery disease involving hopland coronary artery of hopland heart without angina pectoris; Acute on chronic diastolic heart failure (CMS/HCC V24, CMS/HCC V28); Aneurysm of ascending aorta without rupture (CMS/HCC V24); Persistent atrial fibrillation (CMS/HCC V24, CMS/HCC V28); Essential hypertension; History of mechanical aortic valve replacement; Dyslipidemia 09/16/2024 7:15 AM EDT Ancillary Procedure [facility] [address] [place] [address] from Last 3 Months Medical [...] Description 03/23/2025 1:00 PM EST Ancillary Procedure [facility] [address] [place] [address] 04/03/2025 9:20 AM EST Office Visit [facility] [address] [place] [phone] David White MD [address] [place] [address] [address] [place] [address] Health Maintenance Due Date Last Done Comments Abdominal Aortic Aneurysm (AAA) Screen 04/19/2022 Cholesterol Screening (Lipid Panel) 04/19/2022 Colorectal Cancer Screening: Colonoscopy 04/19/2022 Falls Risk Assessment 04/19/2022 Hepatitis C Screening 04/19/2022 Medicare Annual Wellness Visit 04/19/2022 Social Influencers of Health Screening 04/19/2022 Depression Screening 05/11/2024 Influenza Vaccine (#1) 2025 , 02/07/2023, 01/25/2022, [...] this topic Medical Devices Implanted Type Area Transport Coordinator Device Identifier Shelf Expiration Date Model / Serial / Lot Tamela-Souleymane Mara 8 Narayan [id number] Implanted:03/11 (Quantity not on file) Cardiac Pacemaker [employer] EDORA 8 NARAYAN / [id number] / Procedures Procedure Name Priority Date/Time Associated Diagnosis Comments CARDIAC DEVICE CHECK- REMOTE- MURJ Routine 09/16/2024 7:13 AM EDT COMPREHENSIVE METABOLIC PANEL Routine 03/30/2024 11:52 AM EST from Last 3 Months or Most Recently Relevant to Health Maintenance Results * Cardiac device check - Remote- MURJ (09/16/2024 7:13 AM EDT) Date Time Interrogation Session [id number] CV DEVICE CHECK Type Interrogation Session RemoteScheduled CV DEVICE CHECK Implantable Pulse Generator Transport Coordinator BIO CV DEVICE CHECK Implantable Pulse Generator Type IPG CV DEVICE CHECK Implantable Pulse Generator Model Edora 8 NARAYAN CV DEVICE CHECK Implantable Pulse Generator Serial Number [id number] CV DEVICE CHECK Implantable Pulse Generator Implant Date 20180329 CV DEVICE CHECK Battery Remaining Percentage 45.00 CV DEVICE CHECK Battery Status Middle of Service CV DEVICE CHECK Ronak Statistic RA Percent Paced 2.00 CV DEVICE CHECK Ronak Statistic RV Percent Paced 69.00 CV DEVICE CHECK Atrial Tachy Statistic AT/AF [place] Percent 100.00 CV DEVICE CHECK Lead Channel [...] AM EST Performed at: 01 - [facility] [address] [id number] Community Development Worker: Jannie Hughes MD, Phone: [phone] us David White MD LAB BLOOD ORDERABLES Final Res ult [facility] 1 from Last 3 Months or Most Recently Relevant to Health Maintenance Insurance [employer] MEDICARE Care Teams Glaciologist Relationship Specialty Start Date End Date Joey Shetty MD [address] [place] [address] [address] [facility] [place] [address] PCP - General 08/03/13
--- OUTSIDE RECORDS SUMMARY | 2024-11-28 10:05 | XMS_ITS | Patient Health Record ---
Author Organization [facility] Address [address] [place] [address] Care Team Providers Care General Handling Supervisor Name Role Phone Joey Shetty Primary Care Provider Lilian Augustin Unavailable [phone] Allergies No Known Allergies Reason For Referral No Information Medications Medication SIG (Take, Route, Frequency, Duration) Notes Start Date End Date Status Propranolol HCl 10 MG (Prior Auth#:[id number]) Oral; Duration: 90 Active dilTIAZem HCl ER Beads 180 MG 1 capsule Orally Once a day; Duration: 30 day(s) Not-Jose ing Warfarin Sodium 7.5 MG (Prior Auth#:[id number]) Oral; Duration: 90 Active Otezla 30 MG (Prior Auth#:[id number]) Oral; Duration: 90 Not-Taking Metoprolol Tartrate 75 MG 1 tablet with food Orally Twice a day; Duration: 30 day(s) Active Humira Not-Taking Nebulizer Active Medrol 4 MG as directed Orally 02/22/2021 Not-Taking Carbidopa-Levodopa 25-100 MG (Prior Auth#:[id number]) Oral; Duration: 90 Active Advair Diskus 250-50 MCG/DOSE (Prior Auth#:[id number]) Inhalation; Duration: 90 Not-Jose ing Meloxicam 7.5 MG (Prior Auth#:[id number]) Oral; Duration: 45 Active Spiriva Respimat 2.5 MCG/ACT (Prior Auth#:[id number]) Inhalation; Duration: 30 Not-Jose ing Furosemide 20 MG as directed Orally O nce a day Not-Taking Atorvastatin Calcium 40 MG (Prior Auth#:[id number]) Oral; Duration: 90 Active Taltz 40 MG/0.5ML 1 mL Subcutaneous Active Albuterol Sulfate HFA 108 (90 Base) MCG/ACT (Prior Auth#:[id number]) Inhalation; Duration: 30 Active Aspirin Low Dose 81 MG (Prior Auth#:[id number]) Oral; Duration: 90 Active Amantadine HCl 100 MG Oral; Duration: 90 Days Active Bumetanide 2 MG 1 tablet Orally Once a day Active Magnesium Oxide 400 (241.3 Mg) MG (Prior Auth#:[id number]) Oral; Duration: 90 Active Rosuvastatin Calcium 20 MG (Prior Auth#:[id number]) Oral; Duration: 90 Not-Taking Trelegy Ellipta Acti ve Isosorbide Mononitrate ER 30 MG (Prior Auth#:[id number]) Oral; Duration: 90 Active Immunizations Vaccine Route [...] Problem Acquired hammer toe of right foot (2259409356839878 ) Other hammer toe(s) (acquired), right foot (M20.41) Active confirmed Problem Peripheral vascular disease (613765647) Peripheral vascular disease (I73.9) Active confirmed Problem Psoriatic arthritis (190830114) Psoriatic arthritis (L40.50) Active confirmed Possible Problem Localized, primary osteoarthritis of the ankle and/or foot (248301002) Osteoarthritis of right ankle and foot (M19.071) Active confirmed Problem Localized, primary osteoarthritis of the ankle and/or foot (242468174) Osteoarthritis of left ankle and foot (M19.072) Active confirmed Problem Bilateral atherosclerosis of arteries of lower limbs (disorder) (6593818517361257 7) Atherosclerosis of [place] artery of both lower extremities, with unspecified presence of clinical manifestation (I70.203) Active confirmed Q7(A), Q8(2B), Q9(1B,2C) Problem Gouty arthritis of left foot (7700890637950740 ) Gouty arthritis of left foot (M10.9) Active confirmed Problem Localized, primary osteoarthritis of the ankle and/or foot (024873225) Arthritis of joint of lesser toe, right (M19.071) Active confirmed Vital Signs Blood pressure diastolic 70 mm Hg 09/09/2024 Height 6ft1in in 09/09/2024 Blood pressure systolic 120 mm Hg 09/09/2024 Weight 220 lbs 09/09/2024 BMI 29.02 kg/m2 09/09/2024 Encounters Encounter Location Date Provider Diagnosis [address] [address] 12/22/2023 Lilian Perica Ingrown nail L60.[address] [address] 01/21/2024 Lilian Perica Tinea unguium B35.1 ; Pain in right toe(s) M79.674 and Pain in left toe(s) M79.[address] [address] 04/01/2024 Lilian Perica Tinea unguium B35.1 ; Other hammer toe(s) (acquired), right foot M20.41 ; Pain in right toe(s) M79.674 ; Pain in left toe(s) M79.675 and Arthritis of joint of lesser toe, right M19.[address] [address] 06/17/2024 Lilian Perica Atherosclerosis of [place] artery of both lower extremities, with unspecified presence of clinical manifestation I70.203 ; Peripheral vascular disease I73.9 ; Tinea unguium B35.1 ; Pain in right toe(s) M79.674 and Pain in left toe(s) M79.[address] [address] 09/09/2024 Lilian Monte Atherosclerosis of [place] artery of both lower extremities, with unspecified [...] disease (ICD-10 - I73.9) 06/17/2024 Atherosclerosis of [place] artery of both lower extremities, with unspecified presence of clinical manifestation (ICD-10 - I70.203) Q7(A), Q8(2B), Q9(1B,2C) 09/09/2024 Tinea unguium (ICD-10 - B35.1) 09/09/2024 Atherosclerosis of [place] artery of both lower extremities, with unspecified [...] Provider Name:Lilian ferris, 12/02/2024 11:15:00 AM, [address] [place], [address], Insurance Providers Payer Name Payer Address Payer Phone Subscriber Number Group Number Insured Name Patient Relationship to Insured Coverage Start Date Coverage End Date [employer] Medicare Adv-[id number] [address] [address] [place] [address] [id number] Eddie Styles Self - patient is the insured Medical (General) History Medical History History ICD Code Anxiety Heart disease Lung disease Psoriasis/eczema Measles Chicken pox Mumps Vascular grafts Joint implants/screws Replacement Heart Valves Surgical History Surgery Date(Month/Year) aortic valve 08/1996 colonoscopy 05/31/21 Hospitalization History Reason Date(Month/Year) [facility]- Having trouble breathing and retaining fluids - atypical pneumonia 06/03
--- OUTSIDE RECORDS SUMMARY | 2024-11-28 10:05 | XMS_ITS | Data Portability ---
Author Organization [place] - [facility], Allergy Address [address] [place] [id number] Care Team Providers Care Flour Tester Name Role Phone HUE STEWART Primary Care Provider [phone] Assessment No assessment recorded. Plan of Treatment [...] Time Sensorineural hearing loss of bilateral ears [id number] Active 2023 JOEL Rojas MD [address] [facility] [address], [place], [phone], [place] - [facility] 09:33:49 Problem Notes None recorded. Procedures Surgical History Date Name Laterality Status Provider Name and Address Organization Details Recorded Time 04/11/2024 Comp Audio with Tymps - 08876 & 78078 completed CARLOZ GRIFFIN, AUD [address] [address], [place], [phone], [place] - [facility] 04/11/2024 09:52:08 Imaging Results None recorded. Procedure [...] Updated DateTime 04/11/2024 185.42 cm 31 kg/m2 200041.21 g Kevin Rich PA - [facility] 04/11/2024 09:21:01 Social History None recorded. Functional Status None recorded. Mental Status None recorded. Family History Nothing Reported. Medical History Condition Response Heart Problems Y Past Encounters Encounter ID Performer Location Encounter Start Date Encounter Closed Date Diagnosis/Indication Diagnosis SNOMED-CT Code Diagnosis ICD10 Code Diagnosis Note [id number] JOEL ANDERSON MD [facility] on [address] [place] [phone] 04/11/2024 08:53:39 04/11/2024 10:11:29 Sensorineural hearing loss of bilateral ears [id number] H90.3 Rechecked audio today (Pringle and Rinne [...] Vivas Member ID Guarantor Name 04/11/2024 1 [facility] (MEDICARE REPLACEMENT/A DVANTAGE - PPO) [id number] [address] Murray [id number] Eddie Styles Notes Date Note Type Note [...] despite this hearing loss. JOEL ANDERSON MD [address] [place] [address], [place], [phone], [facility] - [facility] 04/11/2024 10:10:32
== END 2024-11-28 11:12 | disposition home or self-care (01) ==
PROVIDERS: PCP Internal Medicine; Visit Provider Physician Assistant Medical
DX: L03.115 Cellulitis of right lower limb (principal)

== ENCOUNTER → 2024-11-28 09:32 | Outpatient (BNVA) | payer MEDICARE, SELFPAY | PROVIDERS: PCP Internal Medicine; Visit Provider Physician Assistant Medical | DX: L03.115 Cellulitis of right lower limb (principal) | CPT/HCPCS: 99212 ==

== ENCOUNTER → 2024-12-06 10:17 | Outpatient (BNVA) | payer MEDICARE, SELFPAY | PROVIDERS: PCP Internal Medicine; Visit Provider Internal Medicine Medical Oncology | DX: Z95.2 Presence of prosthetic heart valve (principal); L03.116 Cellulitis of left lower limb; Z51.81 Encounter for therapeutic drug level monitoring; Z79.01 Long term (current) use of anticoagulants | CPT/HCPCS: 99212 ==

== ENCOUNTER 2024-12-06 15:03 | Outpatient (AMB) | payer MEDICARE, SELFPAY ==
[2024-12-06 16:03] VITALS: BP 115/60; PULSE 88; TEMP 36.9; O2SAT 97; BMI 28.4
--- NOTE | 2024-12-06 16:03 | MHC.OFFWIV ---
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 - The issue began after an insect bite, causing tissue damage. - The patient has been on antibiotics for 8 days out of a 10-day course to manage infection. - Hydrocortisone ointment has been applied to the affected area. - The patient reports improvement with reduced redness and no pus formation. - The patient's is concerned about the appearance of the wound. - He sent a picture of the wound to his PCP, Dr. Shetty and was advised to use hydrocortisone cream on the area. - He denies fever, chills, calf pain, joint pain, discharge, streaking, bleeding, ankle pain, numbness, or tingling. Physical Exam General: Cooperative, healthy appearing, comfortable, no acute distress and well developed Orientation: Patient oriented x3 Respiratory: Normal respiratory effort and able to speak in complete sentences. Clear to auscultation bilaterally. No w/r/r noted. Cardiovascular: RRR, no m/r/g noted. Normal S1 and S2 Skin: Large, circular dark, scabbed area noted on the right posterior calf with no warmth or erythema noted. No induration or streaking. No discharge or bleeding, no FB noted. No edema. MSK: FROM of the right lower leg. No calf tenderness noted. Patient was informed and verbally consented to the use of an ambient scribe for clinic note documentation during this visit [facility] Medical History Hearing deficit Chronic restrictive lung disease Pulmonary nodules Syncope Essential tremor Hypercholesterolemia Hypertension Coronary artery disease COPD (chronic obstructive pulmonary disease) Aortic aneurysm Pulmonary fibrosis Surgical History S/P placement of cardiac pacemaker Aortic valve replaced History of aneurysm History of heart artery stent History of open reduction and internal fixation (ORIF) procedure Family History Mother No problems noted. Father No problems noted. Social History Housing: House Alcohol intake: current Alcohol intake frequency: a few times a week Alcohol type: beer Comment: 2x a week 1-2 drinks Patient Tobacco Use Status: Former Tobacco user Tobacco use type: Cigarette Years Smoked: quit 1996 e-Cigarette/Vaping Use: Never Used Second Hand Smoke Exposure: No service: No Current occupational status: employed Cognitive needs: No Hearing needs: No Vision needs: Yes Review of Systems Const All systems reviewed & are unremarkable except as noted in HPI and below Physical Exam Vital Signs: Last Vital Signs Temp 98.5 F 12/06/24 16:03 Pulse 88 12/06/24 16:03 BP 115/60 12/06/24 16:03 Pulse Ox 97 12/06/24 16:03 Oxygen Delivery Method Room Air 12/06/24 16:03 BMI result Body Mass Index 28.4 Results AMB INR Fingerstick AMB INR Fingerstick 3.9 Last Edit by Latisha Ndiaye RN on 12/06/24 10:43 acelis Assessment & Plan Assessment & Plan (1) Cellulitis of leg: Code(s): L03.119 - Cellulitis of unspecified part of limb Qualifiers: Laterality: left Qualified Code(s): L03.116 - Cellulitis of left lower limb Plan Most likely cellulitis from insect bite, healing Plan - Continue current antibiotic regimen for the remaining 2 days. - Apply antibiotic ointment as prescribed to the affected area two to three times daily. - Monitor for signs of infection or worsening symptoms. - Advised follow up in one week to recheck the area - May need to see wound care Medications: New mupirocin 2% 1 appl topical TID 22 grams 0RF Coding Level of Care Code Est Pt Level 3 (40975) Diagnoses Cellulitis of left lower extremity L03.116 Laterality: left
== END 2024-12-06 16:31 | disposition home or self-care (01) ==
PROVIDERS: PCP Internal Medicine; Visit Provider Physician Assistant Medical
DX: L03.116 Cellulitis of left lower limb (principal)

== ENCOUNTER 2025-01-28 11:21 | Emergency (ER) | payer MEDICARE, SELFPAY ==
--- OUTSIDE RECORDS SUMMARY | 2023-09-10 04:22 | XMS_ITS ---
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 Name Role Phone BOGDAN FERGUSON Primary Care Provider [phone] JEEVAN VALENZUELA [phone] REASON FOR VISIT refill Potassium Medications Medication SIG (Take, Route, Frequency, Duration) Notes Start Date End Date Status Potassium Chloride ER 20 MEQ 1 tablet with food Orally twice per day for 90 days Active Encounters Encounter Location Date Provider Diagnosis [id number] [address] [id number] 09/10/2023 JEEVAN VALENZUELA Hypokalemia E87.6 Assessments Encounter Date Diagnosis (ICD Code) Assessment Notes Treatment Notes Treatment Clinical Notes Section Notes 09/10/2023 Hypokalemia (ICD-10 - E87.6) Plan Of Treatment Medication Medication Name Sig Start Date Stop Date Notes Potassium Chloride ER 20 MEQ 1 tablet wi th food Orally twice per day for 90 days Progress Notes * Eddie GASTONDOB: [birth year] (68 yo M)Acc No.[id number]:09/10/2023 Patient: Koko MENDOZAEddie Carr :1955 A ge:68 Y S ex:Male Address:[address] [place], [place] [address], [address] * Refills Refill Potassium Chloride ER Tablet Extended Release, 20 MEQ, Orally, 180, 1 tablet with food, twice per day, 90 days, Refills=1 * true * Date: Generated for Jasper espana/Sowmya/Maryam on: 0 01/28/2025 12:09 PM EDT
--- OUTSIDE RECORDS SUMMARY | 2024-01-27 09:00 | XMS_ITS ---
Author Organization [facility] Address [address] [place] [address] Care Team Providers Care Civil Defense Director Name Role Phone Joey Shetty Primary Care Provider Lilian Augustin [phone] Encounters Encounter Location Date Provider Diagnosis [address] [address] 01/27/2024 Lilian Monte Plan Of Treatment Next Appt Details Provider Name:Lilian ferris, 02/28/2025 10:00:00 AM, [address] [place], [address], Progress Notes * Eddie GASTONDOB: [birth year] (69 yo M)Acc No.[id number]:01/27/2024 Progress Note Patient: Koko MUÑOZEddie Provider: Geovanni Monte DPM :1955 A ge:68 Y S ex:Male Date:01/27/2024 Address:[address] [place] [address] [id number] Pcp:Joey Shetty Subjective: * Chief Complaints: * [...] 0 01/27/2024 Generated for Jasper espana/Sowmya/Maryam on: 0 01/28/2025 12:09 PM EDT
--- NOTE | ~2025-01-28 | XR_ITS ---
CLINICAL HISTORY: pain Radiographs of the left knee, 4 views Comparison: None available Findings: There is no fracture or dislocation. No joint space narrowing. Mild patellofemoral compartment osteophytosis. Small joint effusion. Soft tissue swelling. Vascular calcifications. Impression: No fracture. Small joint effusion. Mild degenerative change. This document has been electronically signed by: Rossy Au MD on 01/28/2025 14:12:37
--- NOTE | ~2025-01-28 | US_ITS ---
CLINICAL HISTORY: calf pain, posterior knee pain, leg swelling Left lower extremity venous duplex ultrasound Comparison: None available Findings: The visualized deep veins are fully compressible with normal flow. No popliteal cyst. Impression: No deep vein thrombosis. This document has been electronically signed by: Rossy Au MD on 01/28/2025 13:49:21
[2025-01-28 11:26] VITALS: BP 141/67; PULSE 72; RESP 18; TEMP 36.7; O2SAT 97; BMI 29.0
--- NOTE | 2025-01-28 11:27 | ED.LOWEXIN ---
HPI - Extremity Injury (Lower) General Chief Complaint: Extremity Injury, Lower Stated Complaint: Pain on left leg Time Seen by Provider: 01/28/25 11:59 Source: patient, family (Spouse at the bedside corroborating history), RN notes reviewed and old records reviewed Mode of arrival: wheelchair Limitations: no limitations History of Present Illness ED Provider: DOMITILA Mckeon HPI Narrative: 69-year-old male with medical history of essential tremor, COPD, CAD s/p stent 2002 w/ pacemaker 2017, aortic aneurysm s/p resection 1996, pulmonary fibrosis, osteoarthritis, gout, presents to the ED due to 2 days of acute on chronic left knee pain. Patient states last night he was experiencing increased cramping of the left hamstring and calf muscles, and noticed increased swelling and pain of the right knee. Patient has been taking Tylenol and ibuprofen with minimal effect. Patient had to use wheelchair in department due to pain with weightbearing on the L knee. He denies injury/trauma or increased physical activity. Denies chest pain, SOB, abdominal pain, nausea, vomiting, fever, black/tarry stool, urinary symptoms Related Data Home Medications ?Medication ?Instructions ?Recorded ?Confirmed nebulizers 09/02/22 01/17/25 latanoprost 0.005 % eye drops 0 drp ophthalmic (eye) 09/17/22 01/17/25 cholecalciferol (vitamin D3) 50 50 mcg PO DAILY 12/31/22 01/17/25 mcg (2,000 unit) capsule magnesium oxide 800 mg PO DAILY 08/17/23 01/17/25 metoprolol tartrate 50 mg tablet 75 mg PO BID 08/17/23 01/17/25 dapagliflozin propanediol 10 mg 10 mg PO DAILY 08/30/24 01/17/25 tablet (Farxiga) Previous Rx's ?Medication ?Instructions ?Recorded carbidopa 25 mg-levodopa 100 mg 2 tab PO TID 90 days #540 tabs 03/03/24 tablet propranolol 10 mg tablet 10 mg PO BID 90 days #180 tabs 03/03/24 bumetanide 2 mg tablet 2 mg PO DAILY #90 tabs 05/02/24 potassium chloride 20 mEq 20 meq PO BID #60 tabs 05/09/24 tablet,extended release(part/cryst) (Klor-Con M) CPAP AUTOPAP 6-20 cm water #1 ea 05/23/24 humidified AIR aspirin 81 mg tablet,delayed 81 mg PO DAILY #90 tabs 06/14/24 release fluticasone fur. 200 mcg-umeclid 1 inh inhalation DAILY 90 days #3 06/21/24 62.5 mcg-vilant 25 mcg ea inhalat.powder (Trelegy Ellipta) ipratropium 0.5 mg-albuterol 3 mg 3 ml inhalation BID 90 days #540 mL 09/22/24 (2.5 mg base)/3 mL nebulization soln amoxicillin 500 mg capsule 2,000 mg (4 x 500 mg) PO .COMPLEX 09/30/24 1 day #4 caps albuterol sulfate 90 mcg/actuation 2 puff inhalation Q6H PRN 10/07/24 aerosol inhaler (Ventolin HFA) shortness of breath or wheezing 90 days #3 ea roflumilast 500 mcg tablet 500 mcg PO DAILY 90 days #90 tabs 10/07/24 (Daliresp) isosorbide mononitrate 30 mg 30 mg PO DAILY #90 tabs 10/13/24 tablet,extended release 24 hr isosorbide mononitrate 60 mg 60 mg PO DAILY #90 tabs 10/13/24 tablet,extended release 24 hr Taltz Autoinjector 80 mg/mL 80 mg subcut Q4W #1 mL 11/10/24 subcutaneous (ixekizumab) allopurinol 300 mg tablet 300 mg PO DAILY #90 tabs 11/10/24 mupirocin 2 % topical ointment 1 appl topical TID #22 grams 12/06/24 atorvastatin 40 mg tablet 40 mg PO DAILY #90 tabs 01/05/25 amantadine HCl 100 mg tablet 100 mg PO DAILY 90 days #90 tabs 01/11/25 warfarin 7.5 mg tablet 7.5 mg PO .QD #90 tabs 01/26/25 prednisone 20 mg tablet 20 mg PO BID #10 tabs 01/28/25 Allergies Allergy/AdvReac Type Severity Reaction Status Date / Time rosuvastatin Allergy Severe muscle Verified 01/28/25 11:28 aches Review of Systems Review of Systems: CONST: Negative for fever, body aches and chills. HENT: Negative for neck pain/stiffness, headache, congestion, sore throat, swelling. EYES: Negative for discharge/pain or vision changes. RESP: Negative for cough/hemoptysis and shortness of breath. CV: Negative chest pain, difficulty breathing, palpitations. ABD: Negative pain, nausea, vomiting. : Negative increase frequency, dysuria, blood in urine or stool. MUSC: Negative for muscle aches, edema. POS L knee pain, swelling, L hamstring spasm, L calf pain SKIN: Negative rash, lesions/sores. NEURO: Negative headache, dizziness, weakness. Yes all other systems are reviewed and are negative [facility] Past Medical History Medical History Hearing deficit Chronic restrictive lung disease Pulmonary nodules Syncope Essential tremor Hypercholesterolemia Hypertension Coronary artery disease COPD (chronic obstructive pulmonary disease) Aortic aneurysm Pulmonary fibrosis Surgical History S/P placement of cardiac pacemaker Aortic valve replaced History of aneurysm History of heart artery stent History of open reduction and internal fixation (ORIF) procedure Family History Family History Mother No problems noted. Father No problems noted. Social History Social History Housing: House Alcohol intake: current Alcohol intake frequency: a few times a week Alcohol type: beer Comment: 2x a week 1-2 drinks Patient Tobacco Use Status: Former Tobacco user Tobacco use type: Cigarette Years Smoked: quit 1997 Smoked in Last 30 Days: No e-Cigarette/Vaping Use: Never Used Second Hand Smoke Exposure: No Use of substances other than those prescribed or required for medical reasons: No Advance Directives: No Advance Directives Information Provided: Yes Do you have a plan to hurt others: No Plan service: No Current occupational status: employed Cognitive needs: No Hearing needs: No Vision needs: Yes Physical Exam Vital Signs: Vital Signs: Last Vital Signs Temp 97.0 F 01/28/25 13:12 Pulse 74 01/28/25 13:12 Resp 18 01/28/25 13:12 BP 135/66 01/28/25 13:12 Pulse Ox 93 01/28/25 13:12 O2 Del Method Room Air 01/28/25 13:12 BMI result Body Mass Index 29.0 GENERAL APPEARANCE: ?AxOx4, generally well-appearing, no acute distress. HEENT: ?NC, AT. MMM. EOMI, clear conjunctiva, oropharynx clear. NECK: ?Supple without lymphadenopathy.? No stiffness or restricted ROM. HEART:? Normal rate and regular rhythm, normal S1/S2, no m/r/g LUNGS:? Diminished breath sounds of all lung helm, No crackles or wheezes heard. ABDOMEN: ?Soft, nontender, nondistended BACK: No CVAT, no obvious deformity. EXTREMITIES: ?Without cyanosis, clubbing or edema. 1+ pitting edema of LE, Mild edema of medial knee, 2+ popliteal pulses, Full ROM but does have pain when in extension, mild warmth over patella without erythema or overlying skin changes NEUROLOGICAL: ?Grossly nonfocal. Alert and oriented, moving all 4 extremities. Skin: ?Warm and dry without any rash. Course Course Course Narrative: This is an RME: Additional HPI, ROS, PE not included below will be deferred to primary provider. RME assessment and note performed by: Svetlana Chan PA-C This is a 17-ouxw-dks-male, with a hx of CAD, HTN, HLD, valve replacement on coumadin, COPD, who presents to the ER with complaints of left leg pain. Reports that he has some pain in his left posterior thigh. He is unable to bear weight on his left leg secondary to the pain. Left knee with moderate edema and TTP, ttp to the left calf and posterior knee. Plan: Labs, US, xray, further ER eval needed Medications Administered Discontinued Medications Generic Name Dose Route Start Last Admin Trade Name Freq PRN Reason Stop Dose Admin Methocarbamol 500 mg 01/28/25 12:54 01/28/25 13:02 Methocarbamol 500 Mg Tablet PO 01/28/25 12:55 500 mg ONCE ONE Administration Medical Decision Making Medical Decision Making MDM Narrative: 69-year-old male with medical history of essential tremor, COPD, CAD s/p stent 2002 w/ pacemaker 2017, aortic aneurysm s/p resection 1996, pulmonary fibrosis, osteoarthritis, on coumadin, presents to the ED due to 2 days of acute on chronic left knee pain with a hamstring spasm, and pain of the calf. Patient had to use wheelchair while in the department due to pain with weight-bearing on the knee. Denies fevers at home. VS on initial observation-BP 141/67, pulse rate is 72, respiratory rate of 18, afebrile with oral temp of 98?, O2 saturation 97% on room air. Course 14:34- Labs without leukocytosis/leukopenia, H&H stable, total bilirubin elevated at 2.3, however on chart review this lab marker is always elevated and is around patients baseline ESR elevated at 55, CRP elevated at 4.57 uric acid 3.3 US venous duplex negative for DVT XR L knee negative for fracture or dislocation. Does reveal small joint effusion,with soft tissue swelling and mild patellofemoral compartment osteophytosis consistent with degenerative disease. Patient presenting with acute joint pain of the left knee with mild edema, physical exam is consistent with gout flare, patient with history of gout. Patient is afebrile, nontoxic, without leukocytosis/leukopenia, without overlying erythema concerning for cellulitis or septic arthritis presentation. Labs consistent with gout as ESR and CRP are elevated. Treatment options discussed included NSAIDs however, this is contraindicated as patient is on Coumadin. Due to this reason, I elected on a 5 day course of 40 mg prednisone to address swelling and pain. I counseled patient to use Tylenol, rest, elevation, and compression for additional management. I counseled patient to follow up with his primary care provider to ensure resolution of symptoms. Differential Diagnosis Differential Diagnoses: The differential diagnosis associated with the presentation includes Septic arthritis Large joint effusion Cellulitis Gout Admission/Observation Consideration of admission/observation: Escalation of care including admission/observation considered Lab Data MDM Lab Attestation statement: I reviewed the patient's lab results. 01/28/25 12:02 01/28/25 12:02 Labs: Lab Results 01/28/25 01/28/25 Range/Units 12:02 12:57 WBC 8.5 (4.8-10.8) X10*3/uL RBC 4.41 L (4.60-5.80) X10*6/uL Hgb 14.5 (14.0-18.0) g/dl Hct 41.6 L (42.0-52.0) % MCV 94.3 (80.0-98.0) fL MCH 32.9 (27.0-33.0) pg MCHC 34.9 (31.0-36.0) g/dl RDW 14.6 (11.0-16.0) % Plt Count 233 (160-400) X10*3/uL MPV 9.3 L (9.4-12.4) fL Immature Gran % (Auto) 0.6 H (0.0-0.4) % Neut % (Auto) 65.7 (45-73) % Lymph % (Auto) 15.8 L (20-40) % Lenoir % (Auto) 12.7 H (2-11) % Eos % (Auto) 3.9 (0-4) % Baso % (Auto) 1.3 (0-2) % Lymph # (Auto) 1.3 (1.2-4.9) X10*3/uL Len[place] # (Auto) 1.1 (0.1-1.2) X10*3/uL Eos # (Auto) 0.3 (0.0-0.4) X10*3/uL Baso # (Auto) 0.1 (0.0-0.2) X10*3/uL Abs Immat Gran (auto) 0.05 H (0.00-0.03) X10*3/uL Absolute Neuts (auto) 5.6 (2.0-8.3) x10*3/uL Absolute Nucleated RBC 0.000 (0.0-0.012) X10*3/uL Nucleated RBC % (auto) 0.0 (0.0-0.2) /100WBC ESR 55 H (0-15) MM/HR PT 37.9 H (10.9-12.4) SEC INR 3.3 H (0.9-1.1) Sodium 138 (135-145) mmol/L Potassium 3.9 (3.3-5.1) mmol/L Chloride 106 (96-108) mmol/L Carbon Dioxide 23 (22-29) mmol/L Anion Gap 13 (12-20) BUN 13 (9-16) mg/dL Creatinine 0.72 (0.5-1.4) mg/dL Estim Creat Clear Calc 118.6 Estimated GFR > 60 Random Glucose 109 (60-115) mg/dL Uric Acid 3.3 L (3.4-7.0) mg/dL Calcium 9.5 (8.4-10.2) mg/dL Total Bilirubin 2.3 H (0.0-1.0) mg/dL Direct Bilirubin 0.6 H (0.0-0.5) mg/dL AST 23 (5-37) U/L ALT 7 (0-40) U/L Alkaline Phosphatase 103 (39-117) U/L C-Reactive Protein 4.57 H (< or = 0.50) mg/dL Total Protein 7.1 (6.5-8.0) g/dL Albumin 4.0 (3.5-5.0) g/dL Independent Interpretation I performed an independent interpretation of an: Plain X-Ray and Ultrasound Interpretation: I independently interpreted the XR L knee which was negative for fracture, dislocation, with small joint effusion, and degenerative changes seen, I agree with the radiologist's interpretation I independently interpreted the venous duplex ultrasound which was negative for DVT, I agree with the radiologist's interpretation Radiology Impression Discussion of test interpretation with radiology: I have reviewed the radiologist's reading. Radiologist Impression: XR L knee Findings: There is no fracture or dislocation. No joint space narrowing. Mild patellofemoral compartment osteophytosis. Small joint effusion. Soft tissue swelling. Vascular calcifications. Impression: No fracture. Small joint effusion. Mild degenerative change. This document has been electronically signed by: Rossy Au MD on 01/28/2025 14:12:37 Dictated By: Rossy Kim MD Signed By: <Electronically signed by Rossy Kim MD in OV> 01/28/25 1413 US Venous Duplex Findings: The visualized deep veins are fully compressible with normal flow. No popliteal cyst. Impression: No deep vein thrombosis. This document has been electronically signed by: Rossy Au MD on 01/28/2025 13:49:21 Dictated By: Rossy Kim MD Signed By: <Electronically signed by Rossy Kim MD in OV> 01/28/25 1350 Independent Historian Clinical information obtained from an independent historian. History obtained from or confirmed by: Spouse ( at bedside corroborating history) External Record Review External record reviewed: Inpatient record, Office record and Outpatient record Prescription Management I considered prescription management with: Other (NSAIDs) I considered management of gout flare with NSAIDs however patient is on Coumadin and this is a contraindication for NSAIDs. Patient will be prescribed 5 day course of prednisone to treat gout flare. Chronic Conditions Patient?s care impacted by: Other (essential tremor, COPD, CAD s/p stent 2002 w/ pacemaker 2017, aortic aneurysm s/p resection 1996, pulmonary fibrosis, osteoarthritis, gout,) Discharge Plan Discharge Clinical Impression: Gout of left knee Patient Disposition: Home, Self-Care Instructions: Gout (ED) Additional Instructions: You were evaluated in the ED today due to left knee pain. Your physical exam and elevation of inflammatory markers in your lab work are consistent with a gout flare. You are being prescribed a 5 day course of 40 mg prednisone which is a steroid that should help reduce the inflammation and pain within the next 72 hours. Please complete the entire course of medicine even if your symptoms began improving. You can further manage pain by taking 500 mg (1 tablet) of Tylenol every 6 hours, or 1,000 (2 500mg tablets) every 8 hours (do not exceed 4,000mg in 24 hour period), icing the affected area, elevation, rest and compression. Please follow up with your primary care doctor to ensure resolution of your symptoms. Please return to the emergency department if you experience fevers over 100.4?, redness of the left knee, increased pain or swelling of the left knee, or any new/worsening/concerning symptoms. Prescriptions: New prednisone 20 mg tablet 20 mg PO BID Qty: 10 0RF No Action bumetanide 2 mg tablet 2 mg PO DAILY Qty: 90 3RF potassium chloride [Klor-Con M20] 20 mEq tablet,ER particles/crystals 20 meq PO BID Qty: 60 11RF (DME) CPAP AUTOPAP 6-20 cm water humidified AIR See Rx Instructions .Route .MEDSUPPLY Qty: 1 0RF Rx Instructions: Sleep study done in 05/16/2024 revealing moderately severe obstructive sleep apnea with an AHI of 17 patient was advised CPAP therapy with auto PAP mode pressure setting 6-20 cm aspirin 81 mg tablet,delayed release (DR/EC) 81 mg PO DAILY Qty: 90 3RF Trelegy Ellipta 200-62.5-25 mcg blister with device 1 inh inhalation DAILY 90 Days Qty: 3 3RF ipratropium-albuterol 0.5 mg-3 mg(2.5 mg base)/3 mL solution for nebulization 3 ml inhalation BID 90 Days Qty: 540 3RF atorvastatin 40 mg tablet 40 mg PO DAILY Qty: 90 3RF amantadine HCl 100 mg tablet 100 mg PO DAILY 90 Days Qty: 90 3RF Rx Instructions: take with food in am. warfarin 7.5 mg tablet 7.5 mg PO .QD Qty: 90 3RF Protocol: Dose Management Condition: Thursday (Week One) Dose/Route: 7.5 mg Instruction: 1 x 7.5 mg tablet Condition: Thursday Dose/Route: 3.75 mg Instruction: 0.5 x 7.5 mg tablets Condition: Thursday Dose/Route: 3.75 mg Instruction: 0.5 x 7.5 mg tablets Condition: Thursday Dose/Route: 7.5 mg Instruction: 1 x 7.5 mg tablet Condition: Dose/Route: 3.75 mg Instruction: 0.5 x 7.5 mg tablets Condition: Thursday Dose/Route: 7.5 mg Instruction: 1 x 7.5 mg tablet Condition: Thursday Dose/Route: 3.75 mg Instruction: 0.5 x 7.5 mg tablets Condition: Thursday (Week Two) Dose/Route: 7.5 mg Instruction: 1 x 7.5 mg tablet Condition: Thursday Dose/Route: 3.75 mg Instruction: 0.5 x 7.5 mg tablets Condition: Thursday Dose/Route: 3.75 mg Instruction: 0.5 x 7.5 mg tablets Condition: Thursday Dose/Route: 7.5 mg Instruction: 1 x 7.5 mg tablet Condition: Dose/Route: 3.75 mg Instruction: 0.5 x 7.5 mg tablets Condition: Thursday Dose/Route: 7.5 mg Instruction: 1 x 7.5 mg tablet Condition: Thursday Dose/Route: 3.75 mg Instruction: 0.5 x 7.5 mg tablets Protocol Text: Adjustment Start Date: Thursday01/24/25 INR Value: 2.9 INR Date: 01/24/25 Recheck Date: 01/31/25 Additional Instructions: cont same dosing metoprolol tartrate 50 mg tablet 75 mg PO BID magnesium oxide 400 mg magnesium capsule 800 mg PO DAILY (DME) nebulizers Misc See Rx Instructions .Route Rx Instructions: As directed latanoprost 0.005 % drops 0 drp ophthalmic (eye) cholecalciferol (vitamin D3) 50 mcg (2,000 unit) capsule 50 mcg PO DAILY propranolol 10 mg tablet 10 mg PO BID 90 Days Qty: 180 6RF carbidopa-levodopa 25-100 mg tablet 2 tab PO TID 90 Days Qty: 540 6RF dapagliflozin propanediol [Farxiga] 10 mg tablet 10 mg PO DAILY isosorbide mononitrate 30 mg tablet extended release 24 hr 30 mg PO DAILY Qty: 90 3RF isosorbide mononitrate 60 mg tablet extended release 24 hr 60 mg PO DAILY Qty: 90 3RF allopurinol 300 mg tablet 300 mg PO DAILY Qty: 90 3RF Taltz Autoinjector 80 mg/mL auto-injector 80 mg subcut Q4W Qty: 1 2RF mupirocin 2 % ointment 1 appl topical TID Qty: 22 0RF albuterol sulfate [Ventolin HFA] 90 mcg/actuation HFA aerosol inhaler 2 puff inhalation Q6H PRN (Reason: shortness of breath or wheezing) 90 Days Qty: 3 3RF roflumilast [Daliresp] 500 mcg tablet 500 mcg PO DAILY 90 Days Qty: 90 3RF amoxicillin 500 mg capsule 2,000 mg PO .COMPLEX 1 Days Qty: 4 2RF Rx Instructions: Frequency: 1 hour before proced Print Language: Croatian
[2025-01-28 12:08] LABS: MANUAL DIFF FLAG NO
[2025-01-28 12:09] LABS: Hematocrit 41.6 % (42.0-52.0); Hemoglobin 14.5 g/dl (14.0-18.0); Imm Gran Abs Auto 0.05 X10*3/uL (0.00-0.03); Imm Gran Pct Auto 0.6 % (0.0-0.4); Lymphocytes Absolute Auto 1.3 X10*3/uL (1.2-4.9); Mean Corpuscular HGB Conc 34.9 g/dl (31.0-36.0); Mean Corpuscular Hemoglobin 32.9 pg (27.0-33.0); Mean Corpuscular Volume 94.3 fL (80.0-98.0); NRBC Abs Auto 0.000 X10*3/uL (0.0-0.012); NRBC Pct Auto 0.0 /100WBC (0.0-0.2); Platelet Count 233 X10*3/uL (160-400); Red Blood Count 4.41 X10*6/uL (4.60-5.80); White Blood Count 8.5 X10*3/uL (4.8-10.8)
--- OUTSIDE RECORDS SUMMARY | 2025-01-28 12:10 | XMS_ITS | Clinical Summary ---
Author Organization [address] [facility] Address [address] [place] [address] Phone Care Team Providers Care Transmission And Coordination Engineer Name Role Phone Joey Shetty MD Primary [...] tablet Take 7.5 mg by mouth daily. [facility] managing coumadin Active [...] sick sinus syndrome by Dr. Wolfe at [facility] Assessment & Plan (08/21/2024 9:28 AM [...] with metoprolol and warfarin. Followed by non [facility] coumadin clinic. Orders: ECG 12 [...] Encounters Date Type Department Care Team Description 12/21/2024 2:10 PM EDT Ancillary Procedure [facility] Cardiology [facility] [address] [place] [phone] 11/14/2024 1:30 PM EDT Office Visit [facility] Cardiology [facility] [address] [place] [phone] David White MD SOB (shortness of breath) (Primary Dx); SIENA on CPAP; Coronary artery disease involving [place] coronary artery of [place] heart without angina pectoris; Acute on chronic diastolic heart failure (CMS/HCC V24, CMS/HCC V28); Aneurysm of ascending aorta without rupture (CMS/HCC V24); Persistent atrial fibrillation (CMS/HCC V24, CMS/HCC V28); Essential hypertension; History of mechanical aortic valve replacement; Dyslipidemia from Last 3 Months Medical History Medical [...] Weight 98.8 kg (217 lb 14.4 oz) 025 1:15 PM EDT Height 185.4 cm (6' 1 ) 11/14/2024 1:15 PM EDT Body Mass Index 28.75 11/14/2024 1:15 PM EDT Plan of Treatment Upcoming Encounters Date Type Department Care Team (Late st Contact Info) Description 03/23/2025 1:00 PM EST Ancillary Procedure [facility] Cardiology [facility] - [address] [place] [address] 04/03/2025 9:20 AM EST Office Visit [facility] [address] [place] [address] [place] [phone] David White MD [address] [place] [address] [address] [place] [address] Health Maintenance Due Date Last Done Comments Abdominal Aortic Aneurysm (AAA) Screen 04/19/2022 Cholesterol Screening (Lipid Panel) 04/19/2022 Colorectal Cancer Screening: Colonoscopy 04/19/2022 Falls Risk Assessment 04/19/2022 Hepatitis C Screening 04/19/2022 Medicare Annual Wellness Visit 04/19/2022 Social Influencers of Health Screening 04/19/2022 Depression Screening 05/11/2024 Influenza Vaccine (#1) 2025 , 01/10/2024, 02/07/2023, Additional history exists Hypertension/CHF/CAD Annual BMP Blood [...] this topic Medical Devices Implanted Type Area Event Manager Device Identifier Shelf Expiration Date Model / Serial / Lot [employer] Mara Amaya [id number] Implanted:03/11 (Quantity not on file) Cardiac Pacemaker [employer] EDWERNER 8 NARAYAN / [id number] / Procedures Procedure Name Priority Date/Time Associated Diagnosis Comments CARDIAC DEVICE CHECK- REMOTE- MURJ Routine 12/21/2024 2:07 PM EDT COMPREHENSIVE METABOLIC PANEL Routine 03/30/2024 11:52 AM EST from Last 3 Months or Most Recently Relevant to Health Maintenance Results * Cardiac device check - Remote- MURJ (12/21/2024 2:07 PM EDT) Date Time Interrogation Session [id number] CV DEVICE CHECK Type Interrogation Session RemoteScheduled CV DEVICE CHECK Implantable Pulse Generator Event Manager BIO CV DEVICE CHECK Implantable Pulse Generator Type IPG CV DEVICE CHECK Implantable Pulse Generator Model Edora 8 NARAYAN CV DEVICE CHECK Implantable Pulse Generator Serial Number [id number] CV DEVICE CHECK Implantable Pulse Generator Implant Date [id number] CV DEVICE CHECK Battery Remaining Percentage 45.00 CV DEVICE CHECK Battery Status Middle of Service CV DEVICE CHECK Ronak Statistic RA Percent Paced 2.00 CV DEVICE CHECK Ronak Statistic RV Percent Paced 69.00 CV DEVICE CHECK Atrial Tachy Statistic AT/AF [place] Percent 100.00 CV DEVICE CHECK Lead Channel Sensing Intrinsic Amplitude 2.800 CV DEVICE CHECK Lead Channel Impedance Value 468 CV DEVICE CHECK Lead Channel RA Pacing Threshold Date 2024-12-15 CV DEVICE CHECK Lead Channel Setting Pacing Amplitude 4.000 CV DEVICE CHECK Lead Channel Setting Pacing Pulse Width 0.4 CV DEVICE CHECK Lead Channel Sensing Intrinsic Amplitude 12.300 CV DEVICE CHECK Lead Channel Impedance Value 527 CV DEVICE CHECK Lead Channel RV Pacing Threshold Date 2024-12-15 CV DEVICE CHECK Lead Channel Setting Pacing Amplitude 4.200 CV DEVICE CHECK Lead Channel Setting Pacing [...] 160 CV DEVICE CHECK Date of Service 2024-12-28 CV DEVICE CHECK Anatomical Region Laterality Modality Device Interroga tion 12/15/2024 12:0 1 AM EDT Impressions 12/21/2024 1:56 PM EDT Normal Remote: No Events * Normal Device Function * Alerts or events: None * Battery: Battery is at 45%, * Sensing, impedance and thresholds reviewed * Programmed parameters reviewed * Presenting rhythm reviewed * Heart Rate Histograms reviewed * No significant changes noted Narrative Procedure Note David Wolfe MD - 12/21/2024 IMPRESSION: Normal Remote: No Events * Normal [...] AM EST Performed at: 01 - [facility] [address] [id number] Social Service Technician: Jannie Hughes MD, Phone: [phone] us David White MD LAB BLOOD ORDERABLES Final Res ult [facility] 1 from Last 3 Months or Most Recently Relevant to Health Maintenance Insurance [employer] MEDICARE Care Teams Transmission And Coordination Engineer Relationship Specialty Start Date End Date Joey Shetty MD [address] [place] [address] [address] [facility] [place] [address] PCP - General 08/03/13
--- OUTSIDE RECORDS SUMMARY | 2025-01-28 12:10 | XMS_ITS | Patient Health Record ---
Author Organization [facility] Susie benavidez Billing Info Address [address] [place] [address] Care Team Providers Care Director Cardiology Name Role Phone BOGDAN FERGUSON Primary Care [...] Problem Status W/U Status Risk Notes Problem [id number] Obesity (BMI 30-39.9) (E66.9) Active confirmed Problem [id number] Overweight (BMI 25.0-29.9) (E66.3) Active confirmed Plan Of Treatment Pending Test Test Name Order Date BASIC METABOLIC PANEL([facility]-CHEM7) 2023 Future Test Test Name Order Date Basic Metabolic Panel (8) (-[id number] ) 05/20/2023 Basic Metabolic Panel (8) ([id number] ) 06/10/2023 Basic Metabolic Panel (8) ([id number] ) 07/22/2023 Insurance Providers Payer Name Payer Address Payer Phone Subscriber Number Group Number Insured Name Patient Relationship to Insured Coverage Start Date Coverage End Date [facility] PPO GROUP [facility] ADVANTAGE [address] [address] [facility] [place] [place] [id number] GastonEddie Self - patient is the insured [...] with Preserved Ejection Fr action COPD 05/14/2022 [facility] Cardiac Ech o: Left ventricle: Normal global systolic left ventricular function. Ejection fraction was estimated in the range of 50% to 55%. Regional wall motion was normal. Diastolic function was indeterminate due to absence of NSR. Surgical History Surgery Date(Month/Year) Aortic Valve Mechanical Replacement Hospitalization History Reason Date(Month/Year) [facility] worsening dyspnea on e xertion and rest, atypical PNA, Afib, COPD 05/28/2023 [facility] COPD exacerbation, CHF exacerbatio n 05/12/2023
--- OUTSIDE RECORDS SUMMARY | 2025-01-28 12:10 | XMS_ITS | Patient Health Record ---
Author Organization [facility] Address [address] [facility] [place] [address] Care Team Providers Care Line Manager Name Role Phone Joey Shetty Primary Care Provider Lilian Augustin Unavailable [phone] Allergies No Known Allergies Reason For Referral No Information Medications Medication SIG (Take, Route, Frequency, Duration) Notes Start Date End Date Status Metoprolol Tartrate 75 MG 1 tablet with food Orally Twice a day; Duration: 30 day(s) Active Humira Not-Taking Nebulizer Active Medrol 4 MG as directed Orally 02/22/2021 Not-Taking Carbidopa-Levodopa 25-100 MG (Prior Auth#:[id number]) Oral; Duration: 90 Active Advair Diskus 250-50 MCG/DOSE (Prior Auth#:[id number]) Inhalation; Duration: 90 Not-Jose ing Meloxicam 7.5 MG (Prior Auth#:[id number]) Oral; Duration: 45 Active Spiriva Respimat 2.5 MCG/ACT (Prior Auth#:[id number]) Inhalation; Duration: 30 Not-Jose ing Aspirin Low Dose 81 MG (Prior Auth#:[id number]) Oral; Duration: 90 Active Amantadine HCl 100 MG Oral; Duration: 90 Days Active Atorvastatin Calcium 40 MG (Prior Auth#:[id number]) Oral; Duration: 90 Active Furosemide 20 MG as directed Orally O nce a day Not-Taking Isosorbide Mononitrate ER 30 MG (Prior Auth#:[id number]) Oral; Duration: 90 Active Taltz 40 MG/0.5ML 1 mL Subcutaneous Active Albuterol Sulfate HFA 108 (90 Base) MCG/ACT (Prior Auth#:[id number]) Inhalation; Duration: 30 Active Rosuvastatin Calcium 20 MG (Prior Auth#:[id number]) Oral; Duration: 90 Not-Taking Bumetanide 2 MG 1 tablet Orally Once a day Active Magnesium Oxide 400 (241.3 Mg) MG (Prior Auth#:[id number]) Oral; Duration: 90 Active Trelegy Ellipta Acti ve Propranolol HCl 10 MG (Prior Auth#:[id number]) Oral; Duration: 90 Active dilTIAZem HCl ER Beads 180 MG 1 capsule Orally Once a day; Duration: 30 day(s) Not-Jose ing Warfarin Sodium 7.5 MG (Prior Auth#:[id number]) Oral; Duration: 90 Active Otezla 30 MG (Prior Auth#:[id number]) Oral; Duration: 90 Not-Taking Immunizations Vaccine Route Administration Date Status Comme nts Influenza Unknown 01/10/2024 Administered COVID-19 Moderna Vaccine Unknown 04/13/2021 Administered 1st [...] (Standard) Question Answer Notes Tobacco use: Nonsmoker AUDIT-C (Standard) Question Answer Notes Did you have a drink containing alcohol in the p ast year? No Points 0 Interpretation Negative Problems Problem Type SNOMED Code ICD Code Onset Dates Problem Status W/U Status Risk Notes Problem Bilateral atherosclerosis of arteries of lower limbs (disorder) ([id number] ) Atherosclerosis of [place] artery of both lower extremities, with unspecified presence of clinical manifestation (I70.203) Active confirmed Q7(A), Q8(2B), Q9(1B,2 C) Vital Signs Blood pressure diastolic 70 mm Hg 12/02/2024 Height 6ft1in in 12/02/2024 Blood pressure systolic 120 mm Hg 12/02/2024 Weight 220 lbs 12/02/2024 BMI 29.02 kg/m2 12/02/2024 Encounters Encounter Location Date Provider Diagnosis [address] [address] 04/01/2024 Lilian Perica Tinea unguium B35.1 ; Other hammer toe(s) (acquired), right foot M20.41 ; Pain in right toe(s) M79.674 ; Pain in left toe(s) M79.675 and Arthritis of joint of lesser toe, right M19.[address] [address] 06/17/2024 Lilian Perica Atherosclerosis of [place] artery of both lower extremities, with unspecified presence of clinical manifestation I70.203 ; Peripheral vascular disease I73.9 ; Tinea unguium B35.1 ; Pain in right toe(s) M79.674 and Pain in left toe(s) M79.[address] [address] 09/09/2024 Lilian Perica Atherosclerosis of [place] artery of both lower extremities, with unspecified presence of clinical manifestation I70.203 ; Tinea unguium B35.1 ; Pain in right toe(s) M79.674 and Pain in left toe(s) M79.[address] [address] 12/02/2024 Lilian Perica Atherosclerosis of [place] artery of both lower extremities, with unspecified [...] disease (ICD-10 - I73.9) 06/17/2024 Atherosclerosis of [place] artery of both lower extremities, with unspecified presence of clinical manifestation (ICD-10 - I70.203) Q7(A), Q8(2B), Q9(1B,2C) 09/09/2024 Tinea unguium (ICD-10 - B35.1) 09/09/2024 Atherosclerosis of [place] artery of both lower extremities, with unspecified presence of clinical manifestation (ICD-10 - I70.203) Q7(A), Q8(2B), Q9(1B,2C) 12/02/2024 Atherosclerosis of [place] artery of both lower extremities, with unspecified presence of clinical manifestation (ICD-10 - I70.203) Q7(A), Q8(2B), Q9(1B,2C) 12/02/2024 Tinea unguium (ICD-10 - B35.1) 09/09/2024 Pain in right toe(s) (ICD-10 - M79.674) 06/17/2024 Tinea unguium (ICD-10 - B35.1) 04/01/2024 Pain in right toe(s) (ICD-10 - M79.674) 04/01/2024 Pain in left toe(s) (ICD-10 - M79.675) 06/17/2024 Pain in right toe(s) (ICD-10 - M79.674) 09/09/2024 Pain in left toe(s) (ICD-10 - M79.675) 12/02/2024 Pain in right toe(s) (ICD-10 - M79.674) 12/02/2024 Pain in left toe(s) (ICD-10 - M79.675) 06/17/2024 Pain in left toe(s) (ICD-10 - M79.675) 04/01/2024 Arthritis of joint of lesser toe, right (ICD-10 - M19.071) Plan Of Treatment Pending Test Test Name Order Date *Uric Acid, Serum 02/22/2021 X ray : Foot, right 3V 10/03/2020 Next Appt Details Provider Name:Lilian ferris, 02/28/2025 10:00:00 AM, [address] [place] [address], [place], [address], Insurance Providers Payer Name Payer Address Payer Phone Subscriber Number Group Number Insured Name Patient Relationship to Insured Coverage Start Date Coverage End Date [employer] Medicare Adv-[id number] [address] [address] [place] [address] [id number] Eddie Styles Self - patient is the insured Medical (General) History Medical History History ICD Code Anxiety Heart disease Lung disease Psoriasis/eczema Measles Chicken pox Mumps Vascular grafts Joint implants/screws Replacement Heart Valves Surgical History Surgery Date(Month/Year) aortic valve 08/1996 colonoscopy 05/31/21 Hospitalization History Reason Date(Month/Year) [facility]- Having trouble breathing and retaining fluids - atypical pneumonia 06/03
[2025-01-28 12:36] LABS: Alanine Aminotransferase 7 U/L (0-40); Albumin Level 4.0 g/dL (3.5-5.0); Alkaline Phosphatase 103 U/L (39-117); Anion Gap 13 (12-20); Aspartate Amino Transferase 23 U/L (5-37); Blood Urea Nitrogen 13 mg/dL (9-16); Calcium 9.5 mg/dL (8.4-10.2); Carbon Dioxide 23 mmol/L (22-29); Chloride 106 mmol/L (96-108); Creatinine Clr Calc Pharmacy 118.6; Estimated Glomerular Filt Rate > 60; Potassium 3.9 mmol/L (3.3-5.1); Sodium 138 mmol/L (135-145); Total Protein 7.1 g/dL (6.5-8.0); Uric Acid 3.3 mg/dL (3.4-7.0)
[2025-01-28 13:12] VITALS: BP 135/66; PULSE 74; RESP 18; TEMP 36.1; O2SAT 93
[2025-01-28 13:14] LABS: INTERNATIONAL NORM RATIO 3.3 (0.9-1.1); Prothrombin Time 37.9 SEC (10.9-12.4)
[2025-01-28 15:06] VITALS: BP 138/75; PULSE 79; RESP 18; TEMP 36.1; O2SAT 98
== END 2025-01-28 15:07 | disposition home or self-care (01) ==
PROVIDERS: Physician Assistant Medical; Emergency Provider Emergency Medicine; PCP Internal Medicine
DX: M10.9 Gout, unspecified (principal); M79.605 Pain in left leg; J44.9 Chronic obstructive pulmonary disease, unspecified; Z79.899 Other long term (current) drug therapy
CPT/HCPCS: 36415; 73562; 80048; 80076; 84550; 85025; 85610; 85652; 86140; 93971; 99284

== ENCOUNTER → 2025-01-28 11:33 | Outpatient (BNV) | payer MEDICARE, SELFPAY | PROVIDERS: Emergency Provider Emergency Medicine; PCP Internal Medicine; Visit Provider Radiology Diagnostic Radiology | DX: M79.662 Pain in left lower leg (principal); M25.562 Pain in left knee; R22.42 Localized swelling, mass and lump, left lower limb; M25.462 Effusion, left knee | CPT/HCPCS: 73562; 93971 ==

== ENCOUNTER 2025-02-16 09:47 | Outpatient (REF) | payer MEDICARE, SELFPAY ==
[2025-02-16 18:18] LABS: Uric Acid 4.3 mg/dL (3.4-7.0)
== END 2025-02-16 09:48 | disposition home or self-care (01) ==
LOC: HO.HKASLDS 09:47
PROVIDERS: PCP Internal Medicine; Visit Provider Internal Medicine Rheumatology
DX: L40.50 Arthropathic psoriasis, unspecified (principal); M1A.09X0 Idiopathic chronic gout, multiple sites, without tophus (tophi); J44.9 Chronic obstructive pulmonary disease, unspecified; J84.10 Pulmonary fibrosis, unspecified; Z51.81 Encounter for therapeutic drug level monitoring; Z79.899 Other long term (current) drug therapy; Z79.60 Long term (current) use of unspecified immunomodulators and immunosuppressants
CPT/HCPCS: 36415; 84550; 85652; 86140; 99212

== ENCOUNTER 2025-02-16 09:47 | Outpatient (AMB) | payer MEDICARE, SELFPAY ==
--- NOTE | 2025-02-16 09:53 | A.OFFVIS_ITS ---
Vital Signs 02/16/25 09:54 Height 6 ft 1 in Weight 209 lb 3.499 oz BMI 27.6 BP 120/80 Blood Pressure Location Lt brachial Position Sitting Pulse 70 Pulse Source Pulse Oximeter Pulse Oximetry (%) 97 Oxygen Delivery Method Room Air Intake Visit Reasons: 3 Months Intake Note: Patient presents for PsA. Accompanied by: Self / Same As Patient Allergies rosuvastatin Allergy (Severe, Verified 02/16/25 09:53) muscle aches HPI HPI 3 Months: Details: He has pain in feet in the morning. He is stiff in the morning, which resolves with walking. He had a presumed gout attack and presented to [facility] 01/28/2025. He had swelling and pain in right knee then it moved to the left knee. He denies podagra. He was prescribed prednisone 20mg BID 5 days. 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 He may have had a few drinks. No dacytlitis. [facility] Medical History Hearing deficit Chronic restrictive lung disease Pulmonary nodules Syncope Essential tremor Hypercholesterolemia Hypertension Coronary artery disease COPD (chronic obstructive pulmonary disease) Aortic aneurysm Pulmonary fibrosis Surgical History S/P placement of cardiac pacemaker Aortic valve replaced History of aneurysm History of heart artery stent History of open reduction and internal fixation (ORIF) procedure Family History Mother No problems noted. Father No problems noted. Social History Housing: House Alcohol intake: current Alcohol intake frequency: a few times a week Alcohol type: beer Comment: 2x a week 1-2 drinks Patient Tobacco Use Status: Former Tobacco user Tobacco use type: Cigarette Years Smoked: quit 1996 e-Cigarette/Vaping Use: Never Used Second Hand Smoke Exposure: No service: No Current occupational status: employed Cognitive needs: No Hearing needs: No Vision needs: Yes Physical Exam Vital Signs: Last Vital Signs Pulse 70 02/16/25 09:54 BP 120/80 02/16/25 09:54 Pulse Ox 97 02/16/25 09:54 Oxygen Delivery Method Room Air 02/16/25 09:54 BMI result Body Mass Index 27.6 Const Other: General: Comfortable CVS: RRR Respiratory: clear to auscultation bilaterally. Good respiratory effort Skin: No lesions seen MSK: Normal range of motion of upper extremities and lower extremities. No dactylitis present. No synovitis present. Results Reviewed Results Reviewed: X-ray right knee reviewed Labs in [facility] reviewed Assessment & Plan Assessment & Plan (1) Psoriatic arthritis: Comment: He is experiencing foot pain and stiffness in the mornings. He recently had a flare with swelling of bilateral knees. I am concerned that psoriatic arthritis contributed to his most recent flare in January and is contributing to active symptoms of foot pain and stiffness. We discussed adding on DMARD therapies Sulfasalazine. He avoids oral NSAIDs due to cardiac history (AVR, CHF, atrial fibrillation, aortic aneurysm). He sees pulmonology for COPD management who also reports he has pulmonary fibrosis after reviewing his CT scan from 2024, which she gets for monitoring of his aortic aneurysm. Per pulmonology note th ere is a small area of scarring at the left base without evidence of active ILD. I will avoid methotrexate and leflunomide due to risk of worsening ILD. Rheumatology history: Initially he had psoriasis that eventually developed a psoriatic arthritis involving his feet presenting with swelling and pain in feet. Otelza ineffective Humira started January 2023. Effective I DC'd it 11/2023 due to his history of CHF. Taltz started 12/2023 effective for skin and joints. Code(s): L40.50 - Arthropathic psoriasis, unspecified Category: Medical Plan: Labs from January 2025 reviewed for drug monitoring and high-risk medication Inflammatory markers and uric acid ordered. If uric acid level is above 6, I will increase allopurinol dose to 400 mg daily. Continue Taltz 80 mg subcutaneous injection every 4 weeks Start Sulfasalazine 500 mg b.i.d.. After 1 month he will have labs for drug monitoring, which are ordered: CBC, creatinine, AST ALT Return to clinic in 3 months (2) Gout: Comment: Controlled on allopurinol 300 mg daily. Uric acid level is at goal <6.0. Uric acid level 02/07/2025 was 3.3. Rheumatology history: Allopurinol started February 2023 Code(s): M10.9 - Gout, unspecified Category: Medical Qualifiers: Gout site: multiple sites Gout etiology: idiopathic Chronicity: chronic Presence of tophus: without tophus Qualified Code(s): M1A.09X0 - Idiopathic chronic gout, multiple sites, without tophus (tophi) Plan: Continue allopurinol 300 mg daily Return to clinic in 3 months (3) Long-term use of immunosuppressant medication: Code(s): Z79.60 - longterm (current) use of unspecified immunomodulators and immunosuppressants Category: Medical Plan: See above Orders: Orders Erythrocyte Sedimentation Rate Today Z79.899 - Other care home (current) drug therapy Uric Acid Today L40.50 - Arthropathic psoriasis, unspecified C Reactive Protein Today Z79.899 - Other intermission coordinator (current) drug therapy Medications: New sulfasalazine Labs due in 1 month 0.5 grams PO BID 60 tabs 0RF Coding Level of Care Code Est Pt Level 4 (23180) Complex EM visit Add On G2211 Diagnoses Psoriatic arthritis L40.50 Idiopathic chronic gout of multiple sites without tophus M1A.09X0 Gout site: multiple sites Gout etiology: idiopathic Chronicity: chronic Presence of tophus: without tophus Long-term use of immunosuppressant medication Z79.60
[2025-02-16 09:54] VITALS: BP 120/80; PULSE 70; O2SAT 97; BMI 27.6
== END 2025-02-16 10:34 | disposition home or self-care (01) ==
LOC: HO.RHES 09:48
PROVIDERS: PCP Internal Medicine; Visit Provider Internal Medicine Rheumatology
DX: L40.50 Arthropathic psoriasis, unspecified (principal); M1A.09X0 Idiopathic chronic gout, multiple sites, without tophus (tophi); Z79.60 Long term (current) use of unspecified immunomodulators and immunosuppressants
CPT/HCPCS: 99214; G2211

== ENCOUNTER 2025-03-06 09:49 | Outpatient (AMB) | payer MEDICARE, SELFPAY ==
--- OUTSIDE RECORDS SUMMARY | 2023-09-10 04:22 | XMS_ITS ---
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 Name Role Phone BOGDAN FERGUSON Primary Care Provider JEEVAN VALENZUELA [phone] REASON FOR VISIT refill Potassium Medications Medication SIG (Take, Route, Frequency, Duration) Notes Start Date End Date Status Potassium Chloride ER 20 MEQ 1 tablet with food Orally twice per day for 90 days Active Encounters Encounter Location Date Provider Diagnosis [id number] [address] [id number] 09/10/2023 JEEVAN VALENZUELA Hypokalemia E87.6 Assessments Encounter Date Diagnosis (ICD Code) Assessment Notes Treatment Notes Treatment Clinical Notes Section Notes 09/10/2023 Hypokalemia (ICD-10 - E87.6) Plan Of Treatment Medication Medication Name Sig Start Date Stop Date Notes Potassium Chloride ER 20 MEQ 1 tablet wi th food Orally twice per day for 90 days Progress Notes * Eddie GASTONDOB: [birth year] (68 yo M)Acc No.[id number]:09/10/2023 Patient: Koko MENDOZAEddie Carr :1955 A ge:68 Y S ex:Male Address:[address] [place], [place] [address], [address] * Refills Refill Potassium Chloride ER Tablet Extended Release, 20 MEQ, Orally, 180, 1 tablet with food, twice per day, 90 days, Refills=1 * true * Date: Generated for Jasper espana/Sowmya/Maryam on: 1 11:21 AM EDT
--- OUTSIDE RECORDS SUMMARY | 2023-11-06 09:30 | XMS_ITS ---
Author Organization [facility] Address [address] [place] [address] Care Team Providers Care Sourcing Manager Name Role Phone Joey Shetty Primary Care Provider Lilian Augustin [phone] Syed Encounters Encounter Location Date Provider Diagnosis [address] [address] 11/06/2023 Lilian Monte Plan Of Treatment Next Appt Details Provider Name:Lilian ferris, 06/06/2025 11:00:00 AM, [address] [place], [address], Progress Notes * Eddie GASTONDOB: [birth year] (69 yo M)Acc No.[id number]:11/06/2023 Progress Note Patient: Koko MUÑOZEddie Provider: Geovanni Monte DPM :1955 A ge:68 Y S ex:Male Date:11/06/2023 Address:[address] [place] [address] [id number] Pcp:Joey Shetty Subjective: * Chief Complaints: * [...] 11/06/2023 Generated for Jasper espana/Sowmya/Maryam on: 1 11:22 AM EDT
--- OUTSIDE RECORDS SUMMARY | 2024-01-27 09:00 | XMS_ITS ---
Author Organization [facility] Address [address] [place] [address] Care Team Providers Care Bladder Tier Name Role Phone Joey Shetty Primary Care Provider Lilian Augustin [phone] Encounters Encounter Location Date Provider Diagnosis [address] [address] 01/27/2024 Lilian Monte Plan Of Treatment Next Appt Details Provider Name:Lilian ferris, 06/06/2025 11:00:00 AM, [address] [place], [address], Progress Notes * Eddie GASTONDOB: [birth year] (69 yo M)Acc No.[id number]:01/27/2024 Progress Note Patient: Koko MUÑOZEddie Provider: Geovanni Monte DPM :1955 A ge:68 Y S ex:Male Date:01/27/2024 Address:[address] [place] [address] [id number] Pcp:Joey Shetty Subjective: * Chief Complaints: * [...] 01/27/2024 Generated for Jasper espana/Sowmya/Maryam on: 1 11:21 AM EDT
[2025-03-06 10:03] VITALS: BMI 27.6
--- NOTE | 2025-03-06 10:03 | A.OFFVIS_ITS ---
Vital Signs 03/06/25 10:03 Height 6 ft 1 in Weight 209 lb BMI 27.6 Intake Visit Reasons: 6 month Follow up Intake Note: Patient presents follow up for tremors. Accompanied by: Self / Same As Patient Allergies rosuvastatin Allergy (Severe, Verified 02/27/25 15:36) muscle aches Medication List - Last Reconciled 03/06/25 by LINNEA Wallace albuterol sulfate 90 mcg/actuation (Ventolin HFA) 2 puffs inhalation Q6H PRN 90 days allopurinol 300 mg PO DAILY amantadine HCl 100 mg PO DAILY 90 days amoxicillin Frequency: 1 hour before proced 1 day aspirin 81 mg PO DAILY atorvastatin 40 mg PO DAILY bumetanide 2 mg PO DAILY carbidopa-levodopa 25-100 mg 2 tabs PO TID 90 days cholecalciferol (vitamin D3) 50 mcg PO DAILY [CPAP AUTOPAP 6-20 cm water humidified AIR Sleep study done in 05/16/2024 revealing moderately severe obstructive sleep apnea with an AHI of 17 patient was advised CPAP therapy with auto PAP mode pressure setting 6-20 cm] dapagliflozin propanediol (Farxiga) 10 mg PO DAILY emnrkxfdmvn-bfhuaonmx-dfazceag 200-62.5-25 mcg (Trelegy Ellipta) 1 inh inhalation DAILY 90 days ipratropium-albuterol 0.5 mg-3 mg(2.5 mg base)/3 mL 3 mL inhalation BID 90 days isosorbide mononitrate ER 60 mg PO DAILY isosorbide mononitrate ER 30 mg PO DAILY latanoprost 0.005% 0 drps ophthalmic (eye) magnesium oxide 800 mg PO DAILY metoprolol tartrate 75 mg PO BID mupirocin 2% 1 appl topical TID nebulizers As directed potassium chloride ER (Klor-Con M) 20 mEq PO BID propranolol 10 mg PO BID 90 days roflumilast (Daliresp) 500 mcg PO DAILY 90 days sulfasalazine 0.5 grams PO BID Taltz Autoinjector (ixekizumab) 80 mg subcut Q4W NS warfarin 7.5 mg See Protocol PO .QD HPI Comments Details: 69-yr-old male presents for f/u visit for ET. Pt reports denies any significant interval medical history changes. He continues to be followed closely by Cardiology, pulmonology and rheumatology. He reports his psoriatic arthritis treatment regimen was recently adjusted, with sulfasalazine being added to his Taltz DMT. At the last visit, we started amantadine 100mg qam. Since the last visit, he reports his LUE tremor is worse to the point where he cannot eat, write, or even play golf. Can have tremor in the right hand as well. The tremor is not constant, maybe worse later in the day. Today, upon thinking about it, he feels it is easier to eat breakfast than dinner. He thinks that the tremor is worse when he is anxious or after exerting himself. He states he is tolerating the amantadine well. Denies nausea. He reports he sleeps well. Has occasional funny dreams. Pt's current tremor medication regimen: CD-LD 25-100mg 2 tabs tid (breakfast, lunch, after dinner/before bed). Propranolol 10mg bid. Memantine 100 mg daily at 7 am. ADL's: Ind, but slower and has to sit put on lower body clothing as he can be off-balance. Voice: voice is softer today, which he has not noticed. Swallowing: None Drooling: None Orthostatic lightheadedness: At times, stands slowly. No syncope since undergoing pacemaker placement. Constipation: None Urinary symptoms: None Tremor: as above Dyskinesia: None Stiffness: generalized stiffness, which he attributes to his psoriatic arthritis. Gait changes: walking more slowly ?noticed when he saw himself walking in his home video. He is careful with his balance. Freezing: None Falls: None Mood: Stable Hallucinations: None Memory: Occasional lapses, such as difficulty with distant names- may come after a few minutes. Sleep: sleeping well with PAP tx. Exercise: Not as much due to tremor. Did not even play golf this summer due to tremor. [facility] Medical History Hearing deficit Chronic restrictive lung disease Pulmonary nodules Syncope Essential tremor Hypercholesterolemia Hypertension Coronary artery disease COPD (chronic obstructive pulmonary disease) Aortic aneurysm Pulmonary fibrosis Surgical History S/P placement of cardiac pacemaker Aortic valve replaced History of aneurysm History of heart artery stent History of open reduction and internal fixation (ORIF) procedure Family History Mother No problems noted. Father No problems noted. Social History Housing: House Alcohol intake: current Alcohol intake frequency: a few times a week Alcohol type: beer Comment: 2x a week 1-2 drinks Patient Tobacco Use Status: Former Tobacco user Tobacco use type: Cigarette Years Smoked: quit 1996 e-Cigarette/Vaping Use: Never Used Second Hand Smoke Exposure: No service: No Current occupational status: employed Cognitive needs: No Hearing needs: No Vision needs: Yes Physical Exam Vital Signs: BMI result Body Mass Index 27.6 Const General: cooperative and no acute distress Resp Effort & Inspection: normal respiratory effort and able to speak in complete sentences Neuro Other: General: A&O x's 3 Expression: Ok Voice: Intact Tremor: Mild LUE rest tremor, BUE, L > R, postural tremor Tone: Mild LUE tone Dyskinesia: None FFM: LUE- slight decrease. Foot taps: LLE mildly decreased Gait: Stands easily, stride okay, steady gait Psych: Pleasant affect Assessment & Plan Assessment & Plan (1) Essential tremor: Comment: With possible ET plus syndrome. Code(s): G25.0 - Essential tremor Category: Medical (2) Nocturnal leg cramps: Comment: stiffness Code(s): G47.62 - Sleep related leg cramps Category: Medical Plan Discontinue Amantadine 100mg daily at 7 am. Start amantadine 100 mg daily at 7 am and 12 pm- in hopes this helps tremors. Continue Sinemet 25/100 mg 2 tabs TID. Continue Propranolol 10 mg BID. We will refer patient for OT eval and treat for tremor effecting ADLs. Information provided the International essential tremor Foundation- which provides updated information on adaptive equipment for tremor. Goal is for patient to be able to return to golfing as tolerated. Monitor tremors, stiffness, cramps. Follow-up w/ cardiology, pulmonology, and rheumatology as scheduled and prn worsening resp/cardiac s/s. Unfortunately, patient would not be a candidate for TAPs therapy due to pace maker placement or DBS/FUS due to chronic anticoagulation tx. Pt to follow-up in 6 months or sooner prn. Orders: Orders OT Evaluation and Treatment Today G25.0 - Essential tremor Medications: Changed From amantadine HCl take with food in am. 100 mg PO DAILY 90 days 90 tabs 3RF To amantadine HCl Take with food at 7 am and 12 pm. 100 mg PO BID 180 tabs 3RF 90 days Refilled carbidopa-levodopa 25-100 mg 2 tabs PO TID 540 tabs 3RF 90 days propranolol 10 mg PO BID 180 tabs 3RF 90 days Coding Level of Care Code Est Pt Level 4 (56582) Diagnoses Essential tremor G25.0 Nocturnal leg cramps G47.62
--- OUTSIDE RECORDS SUMMARY | 2025-03-06 11:21 | XMS_ITS | Clinical Summary ---
Author Organization [address] [facility] Address [address] [place] [address] Phone Care Team Providers Care Manager Planning Name Role Phone Joey Shetty MD Primary Care Provider [phone] Allergies No known active allergies Medications isosorbide [...] tablet Take 7.5 mg by mouth daily. [facility] [place] managing coumadin Active propranoloL [...] sick sinus syndrome by Dr. Wolfe at [facility] Assessment & Plan (08/21/2024 9:28 AM [...] Assessment & Plan (11/14/2024 6:45 PM EDT): Eddie's overall condition appears improved. He has chronic [...] with metoprolol and warfarin. Followed by non [facility] coumadin clinic. Orders: ECG 12 lead [...] Assessment & Plan (11/14/2024 6:43 PM EDT): Eddie is not reporting any active symptoms to [...] Description 12/21/2024 2:10 PM EDT Ancillary Procedure [facility] [address] [facility] [address] [place] [address] from Last 3 Months Medical [...] Description 03/23/2025 1:00 PM EST Ancillary Procedure [facility] [address] [facility] [address] [place] [address] 04/03/2025 9:20 AM EST Office Visit [facility] [address] [place] [id number] David White MD [address] [place] [address] [address] [facility] [place] [address] Health Maintenance Due Date Last Done Comments Colorectal Cancer Screening: Colonoscopy 1955 Abdominal Aortic Aneurysm (AAA) Screen 04/19/2022 Cholesterol Screening (Lipid Panel) 04/19/2022 Falls Risk Assessment 04/19/2022 Hepatitis C [...] this topic Medical Devices Implanted Type Area Property Utilization Officer Device Identifier Shelf Expiration Date Model / Serial / Lot Huong Terry 8 Narayan [id number] Implanted:03/11 (Quantity not on file) Cardiac Pacemaker [employer] EDORA 8 NARAYAN / [id number] / Procedures Procedure Name Priority Date/Time Associated Diagnosis Comments CARDIAC DEVICE CHECK- REMOTE- MURJ Routine 12/21/2024 2:07 PM EDT COMPREHENSIVE METABOLIC PANEL Routine 03/30/2024 11:52 AM EST from Last 3 Months or Most Recently Relevant to Health Maintenance Results * Cardiac device check - Remote- MURJ (12/21/2024 2:07 PM EDT) Date Time Interrogation Session [id number] CV DEVICE CHECK Type Interrogation Session RemoteScheduled CV DEVICE CHECK Implantable Pulse Generator Property Utilization Officer BIO CV DEVICE CHECK Implantable Pulse Generator Type IPG CV DEVICE CHECK Implantable Pulse Generator Model Edora 8 NARAYAN CV DEVICE CHECK Implantable Pulse Generator Serial Number [id number] CV DEVICE CHECK Implantable Pulse Generator Implant Date [id number] CV DEVICE CHECK Battery Remaining Percentage 45.00 CV DEVICE CHECK Battery Status Middle of Service CV DEVICE CHECK Ronak Statistic RA Percent Paced 2.00 CV DEVICE CHECK Ronak Statistic RV Percent Paced 69.00 CV DEVICE CHECK Atrial Tachy Statistic AT/AF [place] Percent 100.00 CV DEVICE CHECK Lead Channel [...] reviewed * No significant changes noted David Wolef MD CV IMPLANTABLE CARDIAC DEVICE PROCEDURES Final [...] AM EST Performed at: 01 - [facility] [address] [id number] Diesel Dinkey Operator: Jannie Hughes MD, Phone: [phone] us David White MD LAB BLOOD ORDERABLES Final Res ult [facility] 1 from Last 3 Months or Most Recently Relevant to Health Maintenance Insurance [employer] MEDICARE Care Teams Manager Planning Relationship Specialty Start Date End Date Joey Shetty MD [address] [place] [address] Dr [address]gins [address] [place] [address] [facility] [place] [address] PCP - General 08/03/13
--- OUTSIDE RECORDS SUMMARY | 2025-03-06 11:22 | XMS_ITS | Patient Health Record ---
Author [facility] Address [address] [facility] [place] [address] Care Team Providers Care Operator Ground [employer] Name Role Phone Joey Shetty Primary Care Provider Lilian Augustin Unavailable [phone] Allergies No Known Allergies Reason For Referral No Information Medications Medication SIG (Take, Route, Frequency, Duration) Notes Start Date End Date Status Meloxicam 7.5 MG (Prior Auth#:[id number]) Oral; Duration: 45 Active Spiriva Respimat 2.5 MCG/ACT (Prior Auth#:[id number]) Inhalation; Duration: 30 Not-Jose ing Metoprolol Tartrate 75 MG 1 tablet with food Orally Twice a day; Duration: 30 day(s) Active Humira Not-Taking Nebulizer Active Medrol 4 MG as directed Orally 02/22/2021 Not-Taking Propranolol HCl 10 MG (Prior Auth#:[id number]) Oral; Duration: 90 Active Taltz 40 MG/0.5ML 1 mL Subcutaneous Active Albuterol Sulfate HFA 108 (90 Base) MCG/ACT (Prior Auth#:[id number]) Inhalation; Duration: 30 Active Aspirin Low Dose 81 MG (Prior Auth#:[id number]) Oral; Duration: 90 Active Amantadine HCl 100 MG Oral; Duration: 90 Days Active Atorvastatin Calcium 40 MG (Prior Auth#:[id number]) Oral; Duration: 90 Active Furosemide 20 MG as directed Orally O nce a day Not-Taking Carbidopa-Levodopa 25-100 MG (Prior Auth#:[id number]) Oral; Duration: 90 Active Advair Diskus 250-50 MCG/DOSE (Prior Auth#:[id number]) Inhalation; Duration: 90 Not-Jose ing dilTIAZem HCl ER Beads 180 MG 1 capsule Orally Once a day; Duration: 30 day(s) Not-Jose ing Warfarin Sodium 7.5 MG (Prior Auth#:[id number]) Oral; Duration: 90 Active Otezla 30 MG (Prior Auth#:[id number]) Oral; Duration: 90 Not-Taking Bumetanide 2 MG 1 tablet Orally Once a day Active Magnesium Oxide 400 (241.3 Mg) MG (Prior Auth#:[id number]) Oral; Duration: 90 Active Rosuvastatin Calcium 20 MG (Prior Auth#:[id number]) Oral; Duration: 90 Not-Taking Trelegy Ellipta Acti ve Isosorbide Mononitrate ER 30 MG (Prior Auth#:[id number]) Oral; Duration: 90 Active Immunizations Vaccine Route Administration Date Status Comme nts Influenza Unknown 01/10/2024 Administered Influenza Unknown 01/09/2025 Administered COVID-19 Moderna Vaccine Unknown 04/13/2021 Administered [...] atherosclerosis of arteries of lower limbs (disorder) ([id number] ) Atherosclerosis of [place] artery of both lower extremities, with unspecified presence of clinical manifestation (I70.203) Active confirmed Q7(A), Q8(2B), Q9(1B,2 C) Vital Signs Blood pressure diastolic 74 mm Hg 02/28/2025 Height 6ft1in in 02/28/2025 Blood pressure systolic 120 mm Hg 02/28/2025 Weight 205 lbs 02/28/2025 BMI 27.04 kg/m2 02/28/2025 Encounters Encounter Location Date Provider Diagnosis [address] [address] 04/01/2024 Lilian Perica Tinea unguium B35.1 ; Other hammer toe(s) (acquired), right foot M20.41 ; Pain in right toe(s) M79.674 ; Pain in left toe(s) M79.675 and Arthritis of joint of lesser toe, right M19.[address] [address] 06/17/2024 Lilian Perica Atherosclerosis of [place] artery of both lower extremities, with unspecified presence of clinical manifestation I70.203 ; Peripheral vascular disease I73.9 ; Tinea unguium B35.1 ; Pain in right toe(s) M79.674 and Pain in left toe(s) M79.[address] [address] 09/09/2024 Lilian Perica Atherosclerosis of [place] artery of both lower extremities, with unspecified presence of clinical manifestation I70.203 ; Tinea unguium B35.1 ; Pain in right toe(s) M79.674 and Pain in left toe(s) M79.[address] [address] 12/02/2024 Lilian Perica Atherosclerosis of [place] artery of both lower extremities, with unspecified presence of clinical manifestation I70.203 ; Tinea unguium B35.1 ; Pain in right toe(s) M79.674 and Pain in left toe(s) M79.[address] [address] 02/28/2025 Lilian Perica Atherosclerosis of [place] artery of both lower extremities, with unspecified [...] disease (ICD-10 - I73.9) 06/17/2024 Atherosclerosis of [place] artery of both lower extremities, with unspecified presence of clinical manifestation (ICD-10 - I70.203) Q7(A), Q8(2B), Q9(1B,2C) 09/09/2024 Tinea unguium (ICD-10 - B35.1) 09/09/2024 Atherosclerosis of [place] artery of both lower extremities, with unspecified presence of clinical manifestation (ICD-10 - I70.203) Q7(A), Q8(2B), Q9(1B,2C) 12/02/2024 Atherosclerosis of [place] artery of both lower extremities, with unspecified presence of clinical manifestation (ICD-10 - I70.203) Q7(A), Q8(2B), Q9(1B,2C) 02/28/2025 Atherosclerosis of [place] artery of both lower extremities, with unspecified presence of clinical manifestation (ICD-10 - I70.203) Q7(A), Q8(2B), Q9(1B,2C) 02/28/2025 Tinea unguium (ICD-10 - B35.1) 12/02/2024 Tinea unguium (ICD-10 - B35.1) 09/09/2024 Pain in right toe(s) (ICD-10 - M79.674) 06/17/2024 Tinea unguium (ICD-10 - B35.1) 04/01/2024 Pain in right toe(s) (ICD-10 - M79.674) 04/01/2024 Pain in left toe(s) (ICD-10 - M79.675) 06/17/2024 Pain in right toe(s) (ICD-10 - M79.674) 09/09/2024 Pain in left toe(s) (ICD-10 - M79.675) 12/02/2024 Pain in right toe(s) (ICD-10 - M79.674) 02/28/2025 Pain in right toe(s) (ICD-10 - M79.674) 02/28/2025 Pain in left toe(s) (ICD-10 - M79.675) 12/02/2024 Pain in left toe(s) (ICD-10 - M79.675) 06/17/2024 Pain in left toe(s) (ICD-10 - M79.675) 04/01/2024 Arthritis of joint of lesser toe, right (ICD-10 - M19.071) Plan Of Treatment Pending Test Test Name Order Date *Uric Acid, Serum 02/22/2021 X ray : Foot, right 3V 10/03/2020 Next Appt Details Provider Name:Lilian ferris, 06/06/2025 11:00:00 AM, [address] [place], [address], Insurance Providers Payer Name Payer Address Payer Phone Subscriber Number Group Number Insured Name Patient Relationship to Insured Coverage Start Date Coverage End Date [employer] Medicare [id number] [address] [address] [place] [phone] [id number] Eddie Styles Self - patient is the insured Medical (General) History Medical History History ICD Code Anxiety Heart disease Lung disease Psoriasis/eczema Measles Chicken pox Mumps Vascular grafts Joint implants/screws Replacement Heart Valves Surgical History Surgery Date(Month/Year) aortic valve 08/1996 colonoscopy 05/31/21 Hospitalization History Reason Date(Month/Year) [facility]ly [facility]- Having trouble breathing and retaining fluids - atypical pneumonia 06/03
--- OUTSIDE RECORDS SUMMARY | 2025-03-06 11:22 | XMS_ITS | Patient Health Record ---
Author Organization [facility] Susie benavidez Billing Info Address [address] [place] [address] Care Team Providers Care Shader And Toner Name Role Phone BOGDAN FERGUSON Primary Care [...] Problem Status W/U Status Risk Notes Problem [id number] Obesity (BMI 30-39.9) (E66.9) Active confirmed Problem [id number] Overweight (BMI 25.0-29.9) (E66.3) Active confirmed Plan Of Treatment Pending Test Test Name Order Date BASIC METABOLIC PANEL([facility]-CHEM7) 2023 Future Test Test Name Order Date Basic Metabolic Panel (8) (-[id number] ) 05/20/2023 Basic Metabolic Panel (8) ([id number] ) 06/10/2023 Basic Metabolic Panel (8) ([id number] ) 07/22/2023 Insurance Providers Payer Name Payer Address Payer Phone Subscriber Number Group Number Insured Name Patient Relationship to Insured Coverage Start Date Coverage End Date [facility] P[facility] [employer] [address] [address] [facility] [place] [id number] GastonEddie Self - patient is the insured [...] with Preserved Ejection Fr action COPD 05/14/2022 [facility] Cardiac Ech o: Left ventricle: Normal global systolic left ventricular function. Ejection fraction was estimated in the range of 50% to 55%. Regional wall motion was normal. Diastolic function was indeterminate due to absence of NSR. Surgical History Surgery Date(Month/Year) Aortic Valve Mechanical Replacement Hospitalization History Reason Date(Month/Year) [facility] worsening dyspnea on e xertion and rest, atypical PNA, Afib, COPD 05/28/2023 [facility] COPD exacerbation, CHF exacerbatio n 05/12/2023
== END 2025-03-06 10:55 | disposition home or self-care (01) ==
LOC: HO.HSMS 09:51
PROVIDERS: PCP Internal Medicine; Visit Provider Nurse Practitioner Family
DX: G25.0 Essential tremor (principal); G47.62 Sleep related leg cramps
CPT/HCPCS: 99214

== ENCOUNTER → 2025-03-06 09:49 | Outpatient (BNVA) | payer MEDICARE, SELFPAY | PROVIDERS: PCP Internal Medicine; Visit Provider Nurse Practitioner Family | DX: G25.0 Essential tremor (principal); G47.62 Sleep related leg cramps; L40.50 Arthropathic psoriasis, unspecified; Z95.1 Presence of aortocoronary bypass graft; Z95.0 Presence of cardiac pacemaker; Z95.2 Presence of prosthetic heart valve; Z79.82 Long term (current) use of aspirin; G47.33 Obstructive sleep apnea (adult) (pediatric); Z99.89 Dependence on other enabling machines and devices; Z95.5 Presence of coronary angioplasty implant and graft | CPT/HCPCS: 99212 ==

== ENCOUNTER 2025-03-20 08:01 | Outpatient (REF) | payer MEDICARE, SELFPAY ==
--- OUTSIDE RECORDS SUMMARY | 2023-11-06 08:30 | XMS_ITS ---
Author Organization [facility] Address [address] [place] [address] Care Team Providers Care Jawbone Puller Name Role Phone Joey Shetty Primary Care Provider Lilian Augustin [phone] Syed Encounters Encounter Location Date Provider Diagnosis [address] [address] 11/06/2023 Lilian Monte Plan Of Treatment Next Appt Details Provider Name:Lilian ferris, 06/06/2025 11:00:00 AM, [address] [place], [address], Progress Notes * Eddie GASTONDOB: [birth year] (69 yo M)Acc No.[id number]:11/06/2023 Progress Note Patient: Koko MUÑOZEddie Provider: Geovanni Monte DPM :1955 A ge:68 Y S ex:Male Date:11/06/2023 Address:[address] [place] [address] [id number] Pcp:Joey Shetty Subjective: * Chief Complaints: * [...] 11/06/2023 Generated for Jasper espana/Sowmya/Maryam on: 1 05/20/2024 08:07 AM EST
--- OUTSIDE RECORDS SUMMARY | 2024-01-27 08:00 | XMS_ITS ---
Author Organization [facility] Address [address] [place] [address] Care Team Providers Care Marble Coper Name Role Phone Joey Shetty Primary Care Provider Lilian Augustin [phone] Encounters Encounter Location Date Provider Diagnosis [address] [address] 01/27/2024 Lilian Monte Plan Of Treatment Next Appt Details Provider Name:Lilian ferris, 06/06/2025 11:00:00 AM, [address] [place], [address], Progress Notes * Eddie GASTONDOB: [birth year] (69 yo M)Acc No.[id number]:01/27/2024 Progress Note Patient: Koko MUÑOZEddie Provider: Geovanni Monte DPM :1955 A ge:68 Y S ex:Male Date:01/27/2024 Address:[address] [place] [address] [place] Card[id number] Pcp:Joey Shetty Subjective: * Chief Complaints: * [...] 01/27/2024 Generated for Jasper espana/Sowmya/Maryam on: 1 05/20/2024 08:06 AM EST
--- OUTSIDE RECORDS SUMMARY | 2025-03-18 06:10 | XMS_ITS | Encounter Summary ---
Author Organization [facility] [place] [address] Care Team Providers Care Dining Room Attendant Name Role Phone Joey Shetty MD Primary Care Provider [phone] Encounter Details Date Type Department Care Team (Late st Contact Info) Description 03/18/2025 6:10 AM EST Ancillary Procedure [facility] Card[facility] [address] [facility] [address] [place] [address] Arrived Social History Tobacco Use Types Packs/Day [...] Description 03/23/2025 1:00 PM EST Ancillary Procedure [facility] [address] [facility] [address] [place] [address] 04/03/2025 9:20 AM EST Office Visit [facility] Cardiology [facility] [address] [place] [address] David White MD [address] [place] [address] [address],[facility] [address] [place] [address] documented as of this encounter Procedures Procedure Name Priority Date/Time Associated Diagnosis Comments CARDIAC DEVICE CHECK- REMOTE- MURJ Routine 03/18/2025 6:09 AM EST documented in this encounter Results * Cardiac device check - Remote- MURJ (03/18/2025 6:09 AM EST) Date Time Interrogation Session [id number] CV DEVICE CHECK Type Interrogation Session RemoteScheduled CV DEVICE CHECK Implantable Pulse Generator Medicinal Plant Picker BIO CV DEVICE CHECK Implantable Pulse Generator Type IPG CV DEVICE CHECK Implantable Pulse Generator Model Edora 8 DR-T CV DEVICE CHECK Implantable Pulse Generator Serial Number [id number] CV DEVICE CHECK Implantable Pulse Generator Implant Date 20180329 CV DEVICE CHECK Battery Remaining Percentage 40.00 CV DEVICE CHECK Battery Status Middle of Service CV DEVICE CHECK Ronak Statistic RA Percent Paced 2.00 CV DEVICE CHECK Ronak Statistic RV Percent Paced 70.00 CV DEVICE CHECK Atrial Tachy Statistic AT/AF [place] Percent 100.00 CV DEVICE CHECK Lead Channel Sensing Intrinsic Amplitude 1.900 CV DEVICE CHECK Lead Channel Impedance Value 449 CV DEVICE CHECK Lead Channel RA Pacing Threshold Date 2025-03-16 CV DEVICE CHECK Lead Channel Setting Pacing Amplitude 4.000 CV DEVICE CHECK Lead Channel Setting Pacing Pulse Width 0.4 CV DEVICE CHECK Lead Channel Sensing Intrinsic Amplitude 17.700 CV DEVICE CHECK Lead Channel Impedance Value 527 CV DEVICE CHECK Lead Channel RV Pacing Threshold Date 2025-03-16 CV DEVICE CHECK Lead Channel Setting Pacing [...] 160 CV DEVICE CHECK Date of Service 2025-03-29 CV DEVICE CHECK Anatomical Region Laterality Modality Device Interroga tion 03/15/2025 10:2 6 PM EST Impressions 03/17/2025 11:33 AM EST Normal Remote: No Events * Normal Device Function * Alerts or events: None * Battery: Battery is at 40%, * Sensing, impedance and thresholds reviewed * Programmed parameters reviewed * Presenting rhythm reviewed * Heart Rate Histograms reviewed * No significant changes noted Narrative Procedure Note David Wolfe MD - 03/18/2025 IMPRESSION: Normal Remote: No Events * Normal Device Function * Alerts or events: None * Battery: Battery is at 40%, * Sensing, impedance and thresholds reviewed * Programmed parameters reviewed * Presenting rhythm reviewed * Heart Rate Histograms reviewed * No significant changes noted David Wolfe MD CV IMPLANTABLE CARDIAC DEVICE PROCEDURES Final Result documented in this encounter Visit Diagnoses Not on filedocumented in this encounter Care Teams Dining Room Attendant Relationship Specialty Start Date End Date Po, MD Joey [address] [place] [address] Dr [address] [facility] [place] [address] PCP - General 08/03/13 documented as of this encounter
--- OUTSIDE RECORDS SUMMARY | 2025-03-20 08:07 | XMS_ITS | Patient Health Record ---
Author Organization [facility] Susie benavidez Billing Info Address [address] [place] [address] Care Team Providers Care Tire Changer Name Role Phone BOGDAN FERGUSON Primary Care [...] Problem Status W/U Status Risk Notes Problem [id number] Obesity (BMI 30-39.9) (E66.9) Active confirmed Problem 072569188 Overweight (BMI 25.0-29.9) (E66.3) Active confirmed Plan Of Treatment Pending Test Test Name Order Date BASIC METABOLIC PANEL([facility]-CHEM7) 2023 Future Test Test Name Order Date Basic Metabolic Panel (8) (-[id number] ) 05/20/2023 Basic Metabolic Panel (8) ([id number] ) 06/10/2023 Basic Metabolic Panel (8) ([id number] ) 07/22/2023 Insurance Providers Payer Name Payer Address Payer Phone Subscriber Number Group Number Insured Name Patient Relationship to Insured Coverage Start Date Coverage End Date [facility] PPO/[id number] [address] [address] [facility] [place] [place] [id number] Eddie Gaston Self - patient is the [...] with Preserved Ejection Fr action COPD 05/14/2022 [facility] Cardiac Ech o: Left ventricle: Normal global systolic left ventricular function. Ejection fraction was estimated in the range of 50% to 55%. Regional wall motion was normal. Diastolic function was indeterminate due to absence of NSR. Surgical History Surgery Date(Month/Year) Aortic Valve Mechanical Replacement Hospitalization History Reason Date(Month/Year) [facility] worsening dyspnea on e xertion and rest, atypical PNA, Afib, COPD 05/28/2023 [facility] COPD exacerbation, CHF exacerbatio n 05/12/2023
--- OUTSIDE RECORDS SUMMARY | 2025-03-20 08:07 | XMS_ITS | Patient Health Record ---
Author Organization [facility] Address [address] [facility] [place] [address] Care Team Providers Care Ehs Engineer Name Role Phone Joey Shetty Primary Care Provider Lilian Augustin Unavailable [phone] Allergies No Known Allergies Reason For Referral No Information Medications Medication SIG (Take, Route, Frequency, Duration) Notes Start Date End Date Status Meloxicam 7.5 MG (Prior Auth#:[id number]) Oral; Duration: 45 Active Spiriva Respimat 2.5 MCG/ACT (Prior Auth#:[id number]) Inhalation; Duration: 30 Not-Jose ing Metoprolol Tartrate 75 MG 1 tablet with food Orally Twice a day; Duration: 30 day(s) Active Humira Not-Taking Nebulizer Active Medrol 4 MG as directed Orally 02/22/2021 Not-Taking Propranolol HCl 10 MG (Prior Auth#:[id number]) Oral; Duration: 90 Active Taltz 40 MG/0.5ML 1 mL Subcutaneous Active Albuterol Sulfate HFA 108 (90 Base) MCG/ACT (Prior Auth#:[id number]) Inhalation; Duration: 30 Active Aspirin Low Dose 81 MG (Prior Auth#:[id number]) Oral; Duration: 90 Active Amantadine HCl 100 MG Oral; Duration: 90 Days Active Atorvastatin Calcium 40 MG (Prior Auth#:[id number]) Oral; Duration: 90 Active Furosemide 20 MG as directed Orally O nce a day Not-Taking Carbidopa-Levodopa 25-100 MG (Prior Auth#:[id number]) Oral; Duration: 90 Active Advair Diskus 250-50 MCG/DOSE (Prior Auth#:[id number]) Inhalation; Duration: 90 Not-Jose ing dilTIAZem HCl ER Beads 180 MG 1 capsule Orally Once a day; Duration: 30 day(s) Not-Jose ing Warfarin Sodium 7.5 MG (Prior Auth#:[id number]) Oral; Duration: 90 Active Otezla 30 MG (Prior Auth#:[id number]) Oral; Duration: 90 Not-Taking Bumetanide 2 MG 1 tablet Orally Once a day Active Magnesium Oxide 400 (241.3 Mg) MG (Prior Auth#:[id number]) Oral; Duration: 90 Active Rosuvastatin Calcium 20 MG (Prior Auth#:[id number]) Oral; Duration: 90 Not-Taking Trelegy Ellipta Acti ve Isosorbide Mononitrate ER 30 MG (Prior Auth#:[id number]) Oral; Duration: 90 Active Immunizations Vaccine Route [...] atherosclerosis of arteries of lower limbs (disorder) ([id number] ) Atherosclerosis of [place] artery of both lower extremities, with unspecified presence of clinical manifestation (I70.203) Active confirmed Q7(A), Q8(2B), Q9(1B,2 C) Vital Signs Blood pressure diastolic 74 mm Hg 02/28/2025 Height 6ft1in in 02/28/2025 Blood pressure systolic 120 mm Hg 02/28/2025 Weight 205 lbs 02/28/2025 BMI 27.04 kg/m2 02/28/2025 Encounters Encounter Location Date Provider Diagnosis [address] [address] 04/01/2024 Lilian Perica Tinea unguium B35.1 ; Other hammer toe(s) (acquired), right foot M20.41 ; Pain in right toe(s) M79.674 ; Pain in left toe(s) M79.675 and Arthritis of joint of lesser toe, right M19.[address] [address] 06/17/2024 Lilian Perica Atherosclerosis of [place] artery of both lower extremities, with unspecified presence of clinical manifestation I70.203 ; Peripheral vascular disease I73.9 ; Tinea unguium B35.1 ; Pain in right toe(s) M79.674 and Pain in left toe(s) M79.[address] [address] 09/09/2024 Lilian Perica Atherosclerosis of [place] artery of both lower extremities, with unspecified presence of clinical manifestation I70.203 ; Tinea unguium B35.1 ; Pain in right toe(s) M79.674 and Pain in left toe(s) M79.[address] [address] 12/02/2024 Lilian Perica Atherosclerosis of pilot [place] artery of both lower extremities, with unspecified presence of clinical manifestation I70.203 ; Tinea unguium B35.1 ; Pain in right toe(s) M79.674 and Pain in left toe(s) M79.[address] [address] 02/28/2025 Lilian Perica Atherosclerosis of [place] artery of both lower extremities, with unspecified [...] disease (ICD-10 - I73.9) 06/17/2024 Atherosclerosis of pilot [place] artery of both lower extremities, with unspecified presence of clinical manifestation (ICD-10 - I70.203) Q7(A), Q8(2B), Q9(1B,2C) 09/09/2024 Tinea unguium (ICD-10 - B35.1) 09/09/2024 Atherosclerosis of pilot [place] artery of both lower extremities, with unspecified presence of clinical manifestation (ICD-10 - I70.203) Q7(A), Q8(2B), Q9(1B,2C) 12/02/2024 Atherosclerosis of pilot [place] artery of both lower extremities, with unspecified presence of clinical manifestation (ICD-10 - I70.203) Q7(A), Q8(2B), Q9(1B,2C) 02/28/2025 Atherosclerosis of pilot point artery of both lower extremities, with unspecified [...] Provider Name:Lilian ferris, 06/06/2025 11:00:00 AM, [address] [place], [address], Insurance Providers Payer Name Payer Address Payer Phone Subscriber Number Group Number Insured Name Patient Relationship to Insured Coverage Start Date Coverage End Date [employer] Medicare Adv-[id number] [address] [address] [place] [address] [id number] Eddie Styles Self - patient is the insured Medical (General) History Medical History History ICD Code Anxiety Heart disease Lung disease Psoriasis/eczema Measles Chicken pox Mumps Vascular grafts Joint implants/screws Replacement Heart Valves Surgical History Surgery Date(Month/Year) aortic valve 08/1996 colonoscopy 05/31/21 Hospitalization History Reason Date(Month/Year) [facility]- Having trouble breathing and retaining fluids - atypical pneumonia 06/03
--- OUTSIDE RECORDS SUMMARY | 2025-03-20 08:08 | XMS_ITS | Data Portability ---
Author Organization [place] [facility], [facility] Address [address] [place] [address] Care Team Providers Care Sagger Preparer Name Role Phone HUE STEWART Primary Care [...] Time Sensorineural hearing loss of bilateral ears [id number] Active 2023 JOEL Rojas MD [address] [facility] [address], [place], [address], [place] [facility] 09:33:49 Problem Notes None recorded. Procedures Surgical History Date Name Laterality Status Provider Name and Address Organization Details Recorded Time 04/11/2024 Comp Audio with Tymps - 57731 & 71319 completed CARLOZ GRIFFIN, AUD [address] [address], [place], [address], [place] [facility] 04/11/2024 09:52:08 Imaging Results None recorded. Procedure [...] Updated DateTime 04/11/2024 185.42 cm 31 kg/m2 310264.21 g Kevin Rich [place] - [facility] 04/11/2024 09:21:01 Social History None recorded. Functional Status None recorded. Mental Status None recorded. Family History Nothing Reported. Medical History Condition Response Heart Problems Y Past Encounters Encounter ID Performer Location Encounter Start Date Encounter Closed Date Diagnosis/Indication Diagnosis SNOMED-CT Code Diagnosis ICD10 Code Diagnosis IMO Codes Diagnosis Note [id number] JOEL ANDERSON MD [facility] on [address] [place] [address] 04/11/2024 08:53:39 04/11/2024 10:11:29 Sensorineural hearing loss of bilateral ears [id number] H90.3 Rechecked audio today (Pringle and Rinne [...] Vivas Member ID Guarantor Name 04/11/2024 1 [facility] (MEDICARE REPLACEMENT/A DVANTAGE - PPO) [id number] Eddie Styles [id number] Eddie Styles Notes Date Note Type Note Provider Name and Address Organization Details Recorded Time 04/11/2024 text/html ROS as noted in the HPI He is not aware of hearing loss. He has an audio 10/2023 which showed HF SNHL AU, worse . A conductive component was noted on the right as well. 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 Denies tinnitus. He feels he gets by well despite this hearing loss. JOEL ANDERSON MD [address] [place] [address], [place], [address], [facility] - [facility] 04/11/2024 10:10:32
--- OUTSIDE RECORDS SUMMARY | 2025-03-20 08:08 | XMS_ITS | Clinical Summary ---
Author Organization [address] [facility] Address [address] [place] [address] Phone Care Team Providers Care Oyster Grader Name Role Phone Joey Shetty MD Primary Care Provider [phone] Allergies No known active allergies Medications isosorbide [...] sick sinus syndrome by Dr. Wolfe at [facility] Assessment & Plan (08/21/2024 9:28 AM [...] with metoprolol and warfarin. Followed by non [facility] coumadin clinic. Orders: ECG 12 lead Ascending [...] Encounters Date Type Department Care Team Description 03/18/2025 6:10 AM EST Ancillary Procedure [facility] - [address] [place] [address] Arrived 12/21/2024 2:10 PM EDT Ancillary Procedure [facility] - [address] [place] [address] from Last 3 Months Medical History Medical [...] Description 03/23/2025 1:00 PM EST Ancillary Procedure [facility] [address] [place] [address] 04/03/2025 9:20 AM EST Office Visit [facility] [address] [facility] [address] [place] [address] David White MD [address] [place] [address] [address] [place] [address] Health Maintenance Due Date Last Done Comments Colorectal Cancer Screening: Colonoscopy 1955 Abdominal Aortic Aneurysm (AAA) Screen 04/19/2022 Cholesterol Screening (Lipid Panel) 04/19/2022 Falls Risk Assessment 04/19/2022 Hepatitis C Screening 04/19/2022 Medicare Annual Wellness Visit 04/19/2022 Social Influencers of Health Screening 04/19/2022 Depression Screening 05/11/2024 Hypertension/CHF/CAD Annual BMP Blood Test 03/30/2025 03/30/2024, 04/18/2021 DTaP,Tdap,and Td Vaccines (3 - Td or Tdap) 10/13/2034 10/13/2024, 10/01/2017 Zoster Vaccines Completed 03/02/2021, 12/27/2020 Pneumococcal Vaccine: 50+ Years Completed 10/08/2022, 02/11/2016 RSV Immunization Adult Patients Completed 01/30/2023 COVID-19 Vaccine Completed 02/17/2025, , 02/02/2024, Additional history exists Influenza Vaccine Completed 02/17/2025, , 02/02/2024, Additional history exists HIB Vaccines Aged Out [...] this topic Medical Devices Implanted Type Area Wire Technician Device Identifier Shelf Expiration Date Model / Serial / Lot Tamela-Souleymane Edora 8 Narayan [id number] Implanted:03/11 (Quantity not on file) Cardiac Pacemaker [employer] EDORA 8 NARAYAN / [id number] / Procedures Procedure Name Priority Date/Time Associated Diagnosis Comments CARDIAC DEVICE CHECK- REMOTE- MURJ Routine 03/18/2025 6:09 AM EST CARDIAC DEVICE CHECK- REMOTE- MURJ Routine 12/21/2024 2:07 PM EDT COMPREHENSIVE METABOLIC PANEL Routine 03/30/2024 11:52 AM EST from Last 3 Months or Most Recently Relevant to Health Maintenance Results * Cardiac device check - Remote- MURJ (03/18/2025 6:09 AM EST) Only the most recent of2 resultswithin the time period is included. Date Time Interrogation Session [id number] CV DEVICE CHECK Type Interrogation Session RemoteScheduled CV DEVICE CHECK Implantable Pulse Generator Wire Technician BIO CV DEVICE CHECK Implantable Pulse Generator Type IPG CV DEVICE CHECK Implantable Pulse Generator Model Edora 8 NARAYAN CV DEVICE CHECK Implantable Pulse Generator Serial Number [id number] CV DEVICE CHECK Implantable Pulse Generator Implant Date 20180329 CV DEVICE CHECK Battery Remaining Percentage 40.00 CV DEVICE CHECK Battery Status Middle of Service CV DEVICE CHECK Ronak Statistic RA Percent Paced 2.00 CV DEVICE CHECK Ronak Statistic RV Percent Paced 70.00 CV DEVICE CHECK Atrial Tachy Statistic AT/AF [place] Percent 100.00 CV DEVICE CHECK Lead Channel [...] AM EST Performed at: 01 - [facility] [address] [id number] Cow Trimmer: Jannie Hughes MD, Phone: [phone] us David White MD LAB BLOOD ORDERABLES Final Res ult Performing Organization Address City/State/[facility] Co de Phone Number [id number] 1 from Last 3 Months or Most Recently Relevant to Health Maintenance Insurance [employer] MEDICARE Care Teams Oyster Grader Relationship Specialty Start Date End Date Joey Shetty MD [address] [facility] [address] [facility] [place] [address] PCP - General 08/03/13
[2025-03-20 08:23] LABS: MANUAL DIFF FLAG NO
[2025-03-20 08:59] LABS: Hematocrit 43.2 % (42.0-52.0); Hemoglobin 14.1 g/dl (14.0-18.0); Imm Gran Abs Auto 0.04 X10*3/uL (0.00-0.03); Imm Gran Pct Auto 0.7 % (0.0-0.4); Lymphocytes Absolute Auto 1.7 X10*3/uL (1.2-4.9); Mean Corpuscular HGB Conc 32.6 g/dl (31.0-36.0); Mean Corpuscular Hemoglobin 31.5 pg (27.0-33.0); Mean Corpuscular Volume 96.4 fL (80.0-98.0); NRBC Abs Auto 0.000 X10*3/uL (0.0-0.012); NRBC Pct Auto 0.0 /100WBC (0.0-0.2); Platelet Count 223 X10*3/uL (160-400); Red Blood Count 4.48 X10*6/uL (4.60-5.80); White Blood Count 5.9 X10*3/uL (4.8-10.8)
[2025-03-20 09:24] LABS: Alanine Aminotransferase 7 U/L (0-40); Aspartate Amino Transferase 26 U/L (5-37)
[2025-03-20 09:41] LABS: Alanine Aminotransferase 7 U/L (0-40); Albumin Level 4.2 g/dL (3.5-5.0); Alkaline Phosphatase 85 U/L (39-117); Anion Gap 15 (12-20); Aspartate Amino Transferase 27 U/L (5-37); Blood Urea Nitrogen 11 mg/dL (9-16); Calcium 9.7 mg/dL (8.4-10.2); Carbon Dioxide 28 mmol/L (22-29); Chloride 102 mmol/L (96-108); Cholesterol 136 mg/dL (<200); Estimated Glomerular Filt Rate > 60; HDL Cholesterol 46 mg/dL (>40); Magnesium 2.4 mg/dL (1.6-2.6); Potassium 3.5 mmol/L (3.3-5.1); Sodium 141 mmol/L (135-145); Total Protein 7.1 g/dL (6.5-8.0); Triglycerides 142 mg/dL (<150)
[2025-03-20 09:55] LABS: Free T4 (Free Thyroxine) 1.05 ng/dL (0.71-1.85); Thyroid Stimulating Hormone 0.53 uIU/mL (0.32-4.0)
[2025-03-20 11:21] LABS: Uric Acid 3.8 mg/dL (3.4-7.0)
== END 2025-03-20 08:02 | disposition home or self-care (01) ==
LOC: HO.LAB 08:01
PROVIDERS: Absent Provider Internal Medicine; PCP Internal Medicine; Visit Provider Internal Medicine Rheumatology
DX: Z13.1 Encounter for screening for diabetes mellitus (principal); I50.32 Chronic diastolic (congestive) heart failure; E78.00 Pure hypercholesterolemia, unspecified; Z79.60 Long term (current) use of unspecified immunomodulators and immunosuppressants
CPT/HCPCS: 36415; 80053; 80061; 83036; 83735; 84439; 84443; 84450; 84460; 84550; 85025

== ENCOUNTER 2025-03-28 09:10 | Outpatient (AMB) | payer MEDICARE, SELFPAY ==
--- NOTE | 2025-03-28 09:25 | MHC.OFFVISCO ---
Intake Intake Visit Reasons: Anticoagulation Allergies rosuvastatin Allergy (Severe, Verified 03/28/25 09:11) muscle aches Medication List - Last Reconciled 03/28/25 by Latisha Ndiaye, OSMANY albuterol sulfate 90 mcg/actuation (Ventolin HFA) 2 puffs inhalation Q6H PRN 90 days allopurinol 300 mg PO DAILY amantadine HCl 100 mg PO BID 90 days amoxicillin Frequency: 1 hour before proced 1 day aspirin 81 mg PO DAILY atorvastatin 40 mg PO DAILY bumetanide 2 mg PO DAILY carbidopa-levodopa 25-100 mg 2 tabs PO TID 90 days cholecalciferol (vitamin D3) 50 mcg PO DAILY [CPAP AUTOPAP 6-20 cm water humidified AIR Sleep study done in 05/16/2024 revealing moderately severe obstructive sleep apnea with an AHI of 17 patient was advised CPAP therapy with auto PAP mode pressure setting 6-20 cm] dapagliflozin propanediol (Farxiga) 10 mg PO DAILY klfamvoatax-uzuwsnjgn-ryqpoykv 200-62.5-25 mcg (Trelegy Ellipta) 1 inh inhalation DAILY 90 days ipratropium-albuterol 0.5 mg-3 mg(2.5 mg base)/3 mL 3 mL inhalation BID 90 days isosorbide mononitrate ER 60 mg PO DAILY isosorbide mononitrate ER 30 mg PO DAILY latanoprost 0.005% 0 drps ophthalmic (eye) magnesium oxide 800 mg PO DAILY metoprolol tartrate 75 mg PO BID mupirocin 2% 1 appl topical TID nebulizers As directed potassium chloride ER (Klor-Con M) 20 mEq PO BID propranolol 10 mg PO BID 90 days roflumilast (Daliresp) 500 mcg PO DAILY 90 days sulfasalazine 0.5 grams PO BID Taltz Autoinjector (ixekizumab) 80 mg subcut Q4W NS warfarin 7.5 mg See Protocol PO .QD Nursing Note INR [facility] from [facility] INR is: 4.1 out of range of 2.5-3.5 Patient did not indicate changes in assessment questionnaire Telephone call to patient for further assessment who states his knee is swollen and has been taking tylenol which could raise the INR Medication or supplement: no changes Diet: no changes but will add more greens to his diet as long as he is taking tylenol Dose: hold today's dose of 3.75mg then usual dose of 3.75mg X 4 days and 7.5mg X 3 days (S/W/F) Denies signs and symptoms of bleeding or unusual bruising Retest: 04/04/25 Patient verbalizes understanding of instructions given and retest date with read back Anti-Coag Initial Assessment Social Hx Patient Tobacco Use Status: Former Tobacco user Tobacco use type: Cigarette alcohol intake: current Alcohol intake frequency: a few times a week Coding Level of Care Code Est Patient Level 1 Diagnoses Current use of anticoagulant therapy Z79.01 Results AMB INR Fingerstick AMB INR Fingerstick 4.1 Last Edit by Latisha Ndiaye RN on 03/28/25 09:19 [facility] Assessment & Plan Assessment & Plan (1) Current use of anticoagulant therapy: Code(s): Z79.01 - detention (current) use of anticoagulants Category: Medical
--- NOTE | 2025-03-28 10:36 | MHC.OFFVISCO ---
Intake Intake Visit Reasons: Anticoagulation Allergies rosuvastatin Allergy (Severe, Verified 03/28/25 09:11) muscle aches Medication List - Last Reconciled 03/28/25 by Latisha Ndiaye, OSMANY albuterol sulfate 90 mcg/actuation (Ventolin HFA) 2 puffs inhalation Q6H PRN 90 days allopurinol 300 mg PO DAILY amantadine HCl 100 mg PO BID 90 days amoxicillin Frequency: 1 hour before proced 1 day aspirin 81 mg PO DAILY atorvastatin 40 mg PO DAILY bumetanide 2 mg PO DAILY carbidopa-levodopa 25-100 mg 2 tabs PO TID 90 days cholecalciferol (vitamin D3) 50 mcg PO DAILY [CPAP AUTOPAP 6-20 cm water humidified AIR Sleep study done in 05/16/2024 revealing moderately severe obstructive sleep apnea with an AHI of 17 patient was advised CPAP therapy with auto PAP mode pressure setting 6-20 cm] dapagliflozin propanediol (Farxiga) 10 mg PO DAILY vfnldyoassn-gqhwsshhl-ipvxylsj 200-62.5-25 mcg (Trelegy Ellipta) 1 inh inhalation DAILY 90 days ipratropium-albuterol 0.5 mg-3 mg(2.5 mg base)/3 mL 3 mL inhalation BID 90 days isosorbide mononitrate ER 60 mg PO DAILY isosorbide mononitrate ER 30 mg PO DAILY latanoprost 0.005% 0 drps ophthalmic (eye) magnesium oxide 800 mg PO DAILY metoprolol tartrate 75 mg PO BID mupirocin 2% 1 appl topical TID nebulizers As directed potassium chloride ER (Klor-Con M) 20 mEq PO BID propranolol 10 mg PO BID 90 days roflumilast (Daliresp) 500 mcg PO DAILY 90 days sulfasalazine 0.5 grams PO BID Taltz Autoinjector (ixekizumab) 80 mg subcut Q4W NS warfarin 7.5 mg See Protocol PO .QD Nursing Note INR received from [facility] INR is: 4.1 out of range of 2.5-3.5 Patient did not indicate changes in assessment questionnaire Telephone call to patient for further assessment who states his knee is swollen and has been taking tylenol which could raise the INR Medication or supplement: no changes Diet: no changes but will add more greens to his diet as long as he is taking tylenol Dose: hold today's dose of 3.75mg then usual dose of 3.75mg X 4 days and 7.5mg X 3 days (S/W/F) Denies signs and symptoms of bleeding or unusual bruising Retest: 04/04/25 Patient verbalizes understanding of instructions given and retest date with read back Anti-Coag Initial Assessment Social Hx Patient Tobacco Use Status: Former Tobacco user Tobacco use type: Cigarette alcohol intake: current Alcohol intake frequency: a few times a week Coding Level of Care Code 65944 Warafin Pt Mnmt Anticoag Diagnoses Current use of anticoagulant therapy Z79.01 Results AMB INR Fingerstick AMB INR Fingerstick 4.1 Last Edit by Latisha Ndiaye RN on 03/28/25 09:19 [facility] Assessment & Plan Assessment & Plan (1) Current use of anticoagulant therapy: Code(s): Z79.01 - ocean transportation intermediary (current) use of anticoagulants Category: Medical
--- OUTSIDE RECORDS SUMMARY | 2025-03-28 19:04 | XMS_ITS | Data Portability ---
Author Organization [place] - [facility], Allergy Address [address] [place] [address] Care Team Providers Care Operator Specialist Communications Name Role Phone HUE STEWART Primary Care [...] Time Sensorineural hearing loss of bilateral ears [id number] Active 2023 JOEL Rojas MD [address] [facility] [address], [place], [phone], [place] [facility] 09:33:49 Problem Notes None recorded. Procedures Surgical History Date Name Laterality Status Provider Name and Address Organization Details Recorded Time 04/11/2024 Comp Audio with Tymps - 63513 & 42234 completed CARLOZ GRIFFIN, AUD [address] [address], [place], [address], [place] - [facility] 04/11/2024 09:52:08 Imaging Results None recorded. Procedure [...] Updated DateTime 04/11/2024 185.42 cm 31 kg/m2 463483.21 g Kevin Rich [place] - [facility] 04/11/2024 09:21:01 Social History None recorded. Functional Status None recorded. Mental Status None recorded. Family History Nothing Reported. Medical History Condition Response Heart Problems Y Past Encounters Encounter ID Performer Location Encounter Start Date Encounter Closed Date Diagnosis/Indication Diagnosis SNOMED-CT Code Diagnosis ICD10 Code Diagnosis IMO Codes Diagnosis Note [id number] JOEL ANDERSON MD [facility] on [address] [place] [phone] 04/11/2024 08:53:39 04/11/2024 10:11:29 Sensorineural hearing loss of bilateral ears 504080505 H90.3 Rechecked audio today ([place] [employer] [place]inne [...] Vivas Member ID Guarantor Name 04/11/2024 1 [facility] (MEDICARE REPLACEMENT/A DVANTAGE - PPO) [id number] Eddie Styles [id number] Eddie Styles Notes Date Note Type Note [...] despite this hearing loss. JOEL ANDERSON MD [address] [place] [address], [place], [address], [facility] - [facility] 04/11/2024 10:10:32
== END 2025-03-28 09:38 | disposition home or self-care (01) ==
LOC: HO.ACS 09:10
PROVIDERS: PCP Internal Medicine; Visit Provider Internal Medicine Medical Oncology
DX: Z79.01 Long term (current) use of anticoagulants (principal)

== ENCOUNTER 2025-03-30 13:27 | Outpatient (REF) | payer MEDICARE, SELFPAY ==
[2025-03-30 18:33] LABS: Uric Acid 3.3 mg/dL (3.4-7.0)
--- OUTSIDE RECORDS SUMMARY | 2025-03-30 19:54 | XMS_ITS | Clinical Summary ---
Author Organization [address] [facility] Address [address] [place] [address] Phone Care Team Providers Care Career And Guidance Counselor Name Role Phone Joey Shetty MD Primary Care Provider [phone] Allergies No known active allergies Medications isosorbide [...] tablet Take 7.5 mg by mouth daily. [facility] [place] cou[place] Active propranoloL (INDERAL) 10 mg [...] sick sinus syndrome by Dr. Wolfe at [facility] Assessment & Plan (08/21/2024 9:28 AM [...] with metoprolol and warfarin. Followed by non [facility] coumadin clinic. Orders: ECG 12 lead [...] Encounters Date Type Department Care Team Description 03/23/2025 1:00 PM EST Ancillary Procedure [facility] - [address] [place] [address] Encounter for adjustment or management of cardiac device 03/18/2025 6:10 AM EST Ancillary Procedure [facility] - [address] [place] [address] from Last 3 Months Medical History Medical [...] Care Team (Late st Contact Info) Description 04/03/2025 9:20 AM EST Office Visit [facility] [address] [place] [id number] David White MD [address] [place] [address] [address] [facility] [place] [address] 03/26/2026 11:00 AM EST Ancillary Procedure [facility] - [address] [place] [id number] Health Maintenance Due Date Last Done Comments Colorectal Cancer Screening: Colonoscopy 1955 Abdominal Aortic Aneurysm (AAA) Screen 04/19/2022 Cholesterol Screening (Lipid Panel) 04/19/2022 Falls Risk Assessment 04/19/2022 Hepatitis C Screening 04/19/2022 Medicare Annual Wellness Visit 04/19/2022 Social Influencers of Health Screening 04/19/2022 Depression Screening 05/11/2024 Hypertension/CHF/CAD Annual BMP Blood Test 03/30/2025 03/30/2024, 04/18/2021 COVID-19 Vaccine ( season) 2025 02/17/2025, 08/23/2024, 02/02/2024, Additional history exists DTaP,Tdap,and Td Vaccines (3 - Td or Tdap) 10/13/2034 10/13/2024, 10/01/2017 Zoster Vaccines Completed 03/02/2021, 12/27/2020 Pneumococcal Vaccine: 50+ Years Completed 10/08/2022, 02/11/2016 RSV Immunization Adult Patients Completed 01/30/2023 Influenza Vaccine Completed 02/17/2025, , 02/02/2024, Additional [...] this topic Medical Devices Implanted Type Area [employer] Device Identifier Shelf Expiration Date Model / Serial / Lot Huong Edora 8 Narayan [id number] Implanted: (Quantity not on file) Cardiac Pacemaker Right: Chest [employer] EDORA 8 NARAYAN / [id number] / Procedures Procedure Name Priority Date/Time Associated Diagnosis Comments CARDIAC DEVICE CHECK- IN CLINIC- MURJ Routine 03/23/2025 12:56 PM EST Encounter for adjustment or management of cardiac device CARDIAC DEVICE CHECK- REMOTE- MURJ Routine 03/18/2025 6:09 AM EST COMPREHENSIVE METABOLIC PANEL Routine 03/30/2024 11:52 AM EST from Last 3 Months or Most Recently Relevant to Health Maintenance Results * CARDIAC DEVICE CHECK- IN CLINIC- MURJ (03/23/2025 12:56 PM EST) Date Time Interrogation Session [id number] CV DEVICE CHECK Implantable Pulse Generator [employer] BIO CV DEVICE CHECK Implantable Pulse Generator Type IPG CV DEVICE CHECK Implantable Pulse Generator Model Edora 8 NARAYAN CV DEVICE CHECK Implantable Pulse Generator Serial Number [id number] CV DEVICE CHECK Implantable Pulse Generator Implant Date 20180329 CV DEVICE CHECK Battery Remaining Longevity 47.0 CV DEVICE CHECK Battery Status Middle of Service CV DEVICE CHECK Ronak Statistic RA Percent Paced 1.00 CV DEVICE CHECK Ronak Statistic RV Percent Paced 69.00 CV DEVICE CHECK Atrial Tachy Statistic AT/AF [facility] Percent 100.00 CV DEVICE CHECK Lead Channel Sensing Intrinsic Amplitude 3.400 CV DEVICE CHECK Lead Channel Impedance Value 487 CV DEVICE CHECK Lead Channel Setting Pacing Amplitude 2.000 CV DEVICE CHECK Lead Channel Setting Pacing Pulse Width 0.4 CV DEVICE CHECK Lead Channel Sensing Intrinsic Amplitude 12.900 CV DEVICE CHECK Lead Channel Impedance Value 565 CV DEVICE CHECK Lead Channel Pacing Threshold Amplitude 0.800 CV DEVICE CHECK Lead Channel Pacing Threshold Pulse Width 0.4 CV DEVICE CHECK Lead Channel Setting Pacing Amplitude 2.000 CV DEVICE CHECK Lead Channel Setting Pacing Pulse Width 0.4 CV DEVICE CHECK Ronak Setting Mode (NBG Code) DDD CV DEVICE CHECK Ronak Setting Lower Rate Limit 60 CV DEVICE CHECK Ronka Setting AT Mode Switch Rate 150 CV DEVICE CHECK Ronak Setting Maximum Tracking Rate 130 CV DEVICE CHECK Ronak Setting Maximum Sensor Rate 120 CV DEVICE CHECK Ronak Setting PAV Delay 180 CV DEVICE CHECK Ronak Setting MAHAD Delay 160 CV DEVICE CHECK Date of Service 2026-03-21 CV DEVICE CHECK Anatomical Region Laterality Modality Device Interroga tion 03/23/2025 Impressions 03/24/2025 5:10 PM EST Normal In-Office: No Events * Normal Device Function * Alerts or events: Pt in persistent (perm?) AF; mainly controlled * Battery: MOS, 3 years 11 months * Sensing, impedance and thresholds reviewed and tested * Presenting Rhythm: AF - TOBACCO GRADER 60's * Underlying Rhythm: AF (CHB) 30 - 50's * Heart Rate Histograms reviewed * Pacing and Detection Parameters were evaluated * Autocapture turned off d/t recurring high-outputs in both leads after failed autocapture tests (AF) Narrative Procedure Note David Wolfe MD - 03/25/2025 IMPRESSION: Normal In-Office: No Events * Normal Device Function * Alerts or events: Pt in persistent (perm?) AF; mainly controlled * Battery: MOS, 3 years 11 months * Sensing, impedance and thresholds reviewed and tested * Presenting Rhythm: AF - TOBACCO GRADER 60's * Underlying Rhythm: AF (CHB) 30 - 50's * Heart Rate Histograms reviewed * Pacing and Detection Parameters were evaluated * Autocapture turned off d/t recurring high-outputs in both leads afterfailed autocapture tests (AF) us Order Referral Cardiovascular CV IMPLANTABLE CAR DIAC DEVICE PROCEDURES Final Result * Cardiac device check - Remote- MURJ (03/18/2025 6:09 AM EST) Date Time Interrogation Session [id number] CV DEVICE CHECK Type Interrogation Session RemoteScheduled CV DEVICE CHECK Implantable Pulse Generator [employer] BIO CV DEVICE CHECK Implantable Pulse Generator Type IPG CV DEVICE CHECK Implantable Pulse Generator Model Edora 8 DR-T CV DEVICE CHECK Implantable Pulse Generator Serial Number [id number] CV DEVICE CHECK Implantable Pulse Generator Implant Date 20180329 CV DEVICE CHECK Battery Remaining Percentage 40.00 CV DEVICE CHECK Battery Status Middle of Service CV DEVICE CHECK Ronak Statistic RA Percent Paced 2.00 CV DEVICE CHECK Ronak Statistic RV Percent Paced 70.00 CV DEVICE CHECK Atrial Tachy Statistic AT/AF [facility] Percent 100.00 CV DEVICE CHECK Lead Channel [...] 3:06 AM EST Performed at: 01 - [facility] [id number] Inbound Customer Service Agent: Jannie Hughes MD, Phone: [phone] us David White MD LAB BLOOD ORDERABLES Final Res ult [facility] 1 from Last 3 Months or Most Recently Relevant to Health Maintenance Insurance [employer] MEDICARE Care Teams Career And Guidance Counselor Relationship Specialty Start Date End Date Joey Shetty MD [address] [place] [address] [address] [facility] [place] [address] PCP - General 08/03/13
== END 2025-03-30 13:28 | disposition home or self-care (01) ==
LOC: HO.HKASLDS 13:27
PROVIDERS: PCP Internal Medicine; Visit Provider Internal Medicine Rheumatology
DX: L40.50 Arthropathic psoriasis, unspecified (principal); M1A.09X0 Idiopathic chronic gout, multiple sites, without tophus (tophi); Z79.60 Long term (current) use of unspecified immunomodulators and immunosuppressants; Z79.899 Other long term (current) drug therapy
CPT/HCPCS: 36415; 84550; 85652; 86140; 99212

== ENCOUNTER 2025-03-30 13:27 | Outpatient (AMB) | payer MEDICARE, SELFPAY ==
--- OUTSIDE RECORDS SUMMARY | 2023-11-06 08:30 | XMS_ITS ---
Author Organization [facility] Address [address] [place] [address] Care Team Providers Care Interior Assemblies Developer Prover Name Role Phone Joey Shetty Primary Care Provider Lilian Augustin [phone] Syed Encounters Encounter Location Date Provider Diagnosis [address] [address] 11/06/2023 Lilian Monte Plan Of Treatment Next Appt Details Provider Name:Lilian ferris, 06/06/2025 11:00:00 AM, [address] [place], [address], Progress Notes * Eddie GASTONDOB: [birth year] (69 yo M)Acc No.[id number]:11/06/2023 Progress Note Patient: Koko MUÑOZEddie Provider: Geovanni Monte DPM :1955 A ge:68 Y S ex:Male Date:11/06/2023 Address:[address] [place] [address] [id number] Pcp:Joey Shetty Subjective: * Chief Complaints: * [...] 11/06/2023 Generated for Jasper espana/Sowmya/Maryam on: 1 05/30/2024 06:55 PM EST
--- OUTSIDE RECORDS SUMMARY | 2024-01-27 08:00 | XMS_ITS ---
Author Organization [facility] Address [address] [place] [address] Care Team Providers Care Dietary Aide Teacher Name Role Phone Joey Shetty Primary Care Provider Lilian Augustin [phone] Encounters Encounter Location Date Provider Diagnosis [address] [address] 01/27/2024 Lilian Monte Plan Of Treatment Next Appt Details Provider Name:Lilian ferris, 06/06/2025 11:00:00 AM, [address] [place], [address], Progress Notes * Eddie GASTONDOB: [birth year] (69 yo M)Acc No.[id number]:01/27/2024 Progress Note Patient: Koko MUÑOZEddie Provider: Geovanni Monte DPM :1955 A ge:68 Y S ex:Male Date:01/27/2024 Address:[address] [place] [address] [place] Card[id number] Pcp:Joey Shetty Subjective: * Chief Complaints: * [...] 01/27/2024 Generated for Jasper espana/Sowmya/Maryam on: 1 05/30/2024 06:55 PM EST
--- NOTE | 2025-03-30 13:41 | MHC.OFFVIS ---
Vital Signs 03/30/25 13:42 Height 6 ft 1 in Weight 204 lb 2.369 oz BMI 26.9 BP 130/80 Blood Pressure Location Rt brachial Position Sitting Pulse 70 Pulse Source Pulse Oximeter Pulse Oximetry (%) 96 Oxygen Delivery Method Room Air Intake Visit Reasons: evaluation/ Per MD Intake Note: Patient presents today for an evaluation. Accompanied by: Self / Same As Patient Allergies rosuvastatin Allergy (Severe, Verified 03/30/25 13:42) muscle aches HPI HPI evaluation/ Per MD: Details: Right knee pain and swelling started after [employer] trip on sat. He felt pain behind right knee which progressed to right knee swelling. Limping. Not self medicating. It was not as severe as his last episode, which required an ER visit. He has less pain and swelling today then a few days ago. [facility] Medical History Hearing deficit Chronic restrictive lung disease Pulmonary nodules Syncope Essential tremor Hypercholesterolemia Hypertension Coronary artery disease COPD (chronic obstructive pulmonary disease) Aortic aneurysm Pulmonary fibrosis Surgical History S/P placement of cardiac pacemaker Aortic valve replaced History of aneurysm History of heart artery stent History of open reduction and internal fixation (ORIF) procedure Family History Mother No problems noted. Father No problems noted. Social History Housing: House Alcohol intake: current Alcohol intake frequency: a few times a week Alcohol type: beer Comment: 2x a week 1-2 drinks Patient Tobacco Use Status: Former Tobacco user Tobacco use type: Cigarette Years Smoked: quit 1996 e-Cigarette/Vaping Use: Never Used Second Hand Smoke Exposure: No service: No Current occupational status: employed Cognitive needs: No Hearing needs: No Vision needs: Yes Physical Exam Vital Signs: Last Vital Signs Pulse 70 03/30/25 13:42 BP 130/80 03/30/25 13:42 Pulse Ox 96 03/30/25 13:42 Oxygen Delivery Method Room Air 03/30/25 13:42 BMI result Body Mass Index 26.9 Const Other: General: Comfortable CVS: RRR Respiratory: clear to auscultation bilaterally. Good respiratory effort Skin: No lesions seen MSK: He has tenderness of left infrapatellar region with fullness of bursa. No joint line tenderness. He has Best's cyst present left knee. Normal range of motion of upper extremities and lower extremities. No dactylitis present. Assessment & Plan Assessment & Plan (1) Psoriatic arthritis: Comment: He has had recurrent knee swelling, foot pain and stiffness in the morning due to uncontrolled psoriatic arthritis. His uric acid level prior to episodes have been at goal less than 6. He has elevated inflammatory markers. Less likely related to gout attack. We discussed acute management of his symptoms with Medrol Dosepak. He has never had any side effect from prednisone in the past. Discussed rare risk of development of palmar plantar pustulosis in individuals with psoriasis who take glucocorticoids. He recently started DMARD Sulfasalazine. He needs more time for full benefit of Sulfasalazine. Rheumatology history: Initially he had psoriasis that eventually developed a psoriatic arthritis involving his feet presenting with swelling and pain in feet. Otelza ineffective Humira started January 2023. Effective I DC'd it 11/2023 due to his history of CHF. Taltz started 12/2023 effective for skin and joints. SSZ 02/2025-. Avoiding methotrexate and leflunomide due to history of pulmonary fibrosis. CTA chest 2024 surveillance exam for monitoring aortic aneurysm reveal small area of scarring in the left base without evidence of active ILD. Code(s): L40.50 - Arthropathic psoriasis, unspecified Category: Medical Plan: Labs for drug monitoring high-risk medication up-to-date Medrol Dosepak prescribed Continue Taltz 80 mg subcutaneous injection every 4 weeks Continue Sulfasalazine 500 mg b.i.d. Return to clinic in 3 months (2) Gout: Comment: Controlled on allopurinol 300 mg daily. Uric acid level is at goal <6.0. Rheumatology history: Allopurinol started February 2023 Code(s): M10.9 - Gout, unspecified Category: Medical Qualifiers: Chronicity: chronic Gout etiology: idiopathic Gout site: multiple sites Presence of tophus: without tophus Qualified Code(s): M1A.09X0 - Idiopathic chronic gout, multiple sites, without tophus (tophi) Plan: Continue allopurinol 300 mg daily Return to clinic in 3 months (3) Long-term use of immunosuppressant medication: Code(s): Z79.60 - exterminator helper termite (current) use of unspecified immunomodulators and immunosuppressants Category: Medical Plan: See above Orders: Orders Alanine Aminotransferase 3 Months Z79.899 - Other senior care (current) drug therapy Creatinine 3 Months Z79.899 - Other senior care (current) drug therapy Erythrocyte Sedimentation Rate 3 Months Z79.899 - Other exterminator helper termite (current) drug therapy Erythrocyte Sedimentation Rate 03/30/25 Z79.899 - Other senior care (current) drug therapy C Reactive Protein 03/30/25 Z79.899 - Other exterminator helper termite (current) drug therapy Complete Blood Count Auto Diff 3 Months Z79.899 - Other senior care (current) drug therapy Aspartate Amino Transferase 3 Months Z79.899 - Other senior care (current) drug therapy C Reactive Protein 3 Months Z79.899 - Other exterminator helper termite (current) drug therapy Uric Acid 03/30/25 M1A.09X0 - Idiopathic chronic gout, multiple sites, without tophus (tophi) Medications: New methylprednisolone (Medrol (Star)) PO PER PKG DIR for 6 days 21 ea 0RF Changed From sulfasalazine 0.5 grams PO BID 60 tabs 2RF To sulfasalazine 0.5 grams PO BID 180 tabs 0RF 90 days Coding Level of Care Code Complex visit Add On G2211 Diagnoses Psoriatic arthritis L40.50 Idiopathic chronic gout of multiple sites without tophus M1A.09X0 Chronicity: chronic Gout etiology: idiopathic Gout site: multiple sites Presence of tophus: without tophus Long-term use of immunosuppressant medication Z79.60
[2025-03-30 13:42] VITALS: BP 130/80; PULSE 70; O2SAT 96; BMI 26.9
--- OUTSIDE RECORDS SUMMARY | 2025-03-30 18:56 | XMS_ITS | Patient Health Record ---
Author Organization [facility] Address [address] [facility] [place] [address] Care Team Providers Care Stationary Equipment Mechanic Name Role Phone Joey Shetty Primary Care Provider Lilian Augustin Unavailable [phone] Allergies No Known Allergies Reason For Referral No Information Medications Medication SIG (Take, Route, Frequency, Duration) Notes Start Date End Date Status Meloxicam 7.5 MG (Prior Auth#:[id number]) Oral; Duration: 45 Active Spiriva Respimat 2.5 MCG/ACT (Prior Auth#:[id number]) Inhalation; Duration: 30 Not-Jose ing Metoprolol Tartrate 75 MG 1 tablet with food Orally Twice a day; Duration: 30 day(s) Active Humira Not-Taking Nebulizer Active Medrol 4 MG as directed Orally 02/22/2021 Not-Taking Propranolol HCl 10 MG (Prior Auth#:[id number]) Oral; Duration: 90 Active Taltz 40 MG/0.5ML 1 mL Subcutaneous Active Albuterol Sulfate HFA 108 (90 Base) MCG/ACT (Prior Auth#:[id number]) Inhalation; Duration: 30 Active Aspirin Low Dose 81 MG (Prior Auth#:[id number]) Oral; Duration: 90 Active Amantadine HCl 100 MG Oral; Duration: 90 Days Active Atorvastatin Calcium 40 MG (Prior Auth#:[id number]) Oral; Duration: 90 Active Furosemide 20 MG as directed Orally O nce a day Not-Taking Carbidopa-Levodopa 25-100 MG (Prior Auth#:[id number]) Oral; Duration: 90 Active Advair Diskus 250-50 MCG/DOSE (Prior Auth#:[id number]) Inhalation; Duration: 90 Not-Jose ing dilTIAZem HCl ER Beads 180 MG 1 capsule Orally Once a day; Duration: 30 day(s) Not-Jose ing Warfarin Sodium 7.5 MG (Prior Auth#:[id number]) Oral; Duration: 90 Active Otezla 30 MG (Prior Auth#:[id number]) Oral; Duration: 90 Not-Taking Bumetanide 2 MG 1 tablet Orally Once a day Active Magnesium Oxide 400 (241.3 Mg) MG (Prior Auth#:[id number]) Oral; Duration: 90 Active Rosuvastatin Calcium 20 MG (Prior Auth#:[id number]) Oral; Duration: 90 Not-Taking Trelegy Ellipta Acti ve Isosorbide Mononitrate ER 30 MG (Prior Auth#:[id number]) Oral; Duration: 90 Active Immunizations Vaccine Route [...] atherosclerosis of arteries of lower limbs (disorder) ([id number] ) Atherosclerosis of [place] artery of both lower extremities, with unspecified presence of clinical manifestation (I70.203) Active confirmed Q7(A), Q8(2B), Q9(1B,2 C) Vital Signs Blood pressure diastolic 74 mm Hg 02/28/2025 Height 6ft1in in 02/28/2025 Blood pressure systolic 120 mm Hg 02/28/2025 Weight 205 lbs 02/28/2025 BMI 27.04 kg/m2 02/28/2025 Encounters Encounter Location Date Provider Diagnosis [address] [address] 04/01/2024 Lilian Perica Tinea unguium B35.1 ; Other hammer toe(s) (acquired), right foot M20.41 ; Pain in right toe(s) M79.674 ; Pain in left toe(s) M79.675 and Arthritis of joint of lesser toe, right M19.[address] [address] 06/17/2024 Lilian Perica Atherosclerosis of [place] artery of both lower extremities, with unspecified presence of clinical manifestation I70.203 ; Peripheral vascular disease I73.9 ; Tinea unguium B35.1 ; Pain in right toe(s) M79.674 and Pain in left toe(s) M79.[address] [address] 09/09/2024 Lilian Perica Atherosclerosis of [place] artery of both lower extremities, with unspecified presence of clinical manifestation I70.203 ; Tinea unguium B35.1 ; Pain in right toe(s) M79.674 and Pain in left toe(s) M79.[address] [address] 12/02/2024 Lilian Perica Atherosclerosis of [place] artery of both lower extremities, with unspecified presence of clinical manifestation I70.203 ; Tinea unguium B35.1 ; Pain in right toe(s) M79.674 and Pain in left toe(s) M79.[address] [address] 02/28/2025 Lilian Perica Atherosclerosis of [place] artery of both lower extremities, with unspecified [...] disease (ICD-10 - I73.9) 06/17/2024 Atherosclerosis of [place] artery of both lower extremities, with unspecified presence of clinical manifestation (ICD-10 - I70.203) Q7(A), Q8(2B), Q9(1B,2C) 09/09/2024 Tinea unguium (ICD-10 - B35.1) 09/09/2024 Atherosclerosis of [place] artery of both lower extremities, with unspecified presence of clinical manifestation (ICD-10 - I70.203) Q7(A), Q8(2B), Q9(1B,2C) 12/02/2024 Atherosclerosis of [place] artery of both lower extremities, with unspecified presence of clinical manifestation (ICD-10 - I70.203) Q7(A), Q8(2B), Q9(1B,2C) 02/28/2025 Atherosclerosis of [place] artery of both lower extremities, with unspecified [...] Provider Name:Lilian ferris, 06/06/2025 11:00:00 AM, [address] [place], [address], Insurance Providers Payer Name Payer Address Payer Phone Subscriber Number Group Number Insured Name Patient Relationship to Insured Coverage Start Date Coverage End Date [employer] Medicare [id number] [address] [address] [place] [address] [phone] [id number] Eddie Styles Self - patient is the insured Medical (General) History Medical History History ICD Code Anxiety Heart disease Lung disease Psoriasis/eczema Measles Chicken pox Mumps Vascular grafts Joint implants/screws Replacement Heart Valves Surgical History Surgery Date(Month/Year) aortic valve 08/1996 colonoscopy 05/31/21 Hospitalization History Reason Date(Month/Year) [facility]- Having trouble breathing and retaining fluids - atypical pneumonia 06/03
--- OUTSIDE RECORDS SUMMARY | 2025-03-30 18:56 | XMS_ITS | Patient Health Record ---
Author Organization [facility] Susie benavidez Billing Info Address [address] [place] [address] Care Team Providers Care Seed Collector Name Role Phone BOGDAN FERGUSON Primary Care [...] Problem Status W/U Status Risk Notes Problem [id number] Obesity (BMI 30-39.9) (E66.9) Active confirmed Problem [id number] Overweight (BMI 25.0-29.9) (E66.3) Active confirmed Plan Of Treatment Pending Test Test Name Order Date BASIC METABOLIC PANEL([facility]-CHEM[facility]) 2023 Future Test Test Name Order Date Basic Metabolic Panel (8) (-[id number] ) 05/20/2023 Basic Metabolic Panel (8) ([id number] ) 06/10/2023 Basic Metabolic Panel (8) ([id number] ) 07/22/2023 Insurance Providers Payer Name Payer Address Payer Phone Subscriber Number Group Number Insured Name Patient Relationship to Insured Coverage Start Date Coverage End Date [facility] MEDIC[facility] PPO/[id number] [address] [address] [facility] [place] [phone] [id number] Eddie Gaston Self - patient is the [...] with Preserved Ejection Fr action COPD 05/14/2022 [facility] Cardiac Ech o: Left ventricle: Normal global systolic left ventricular function. Ejection fraction was estimated in the range of 50% to 55%. Regional wall motion was normal. Diastolic function was indeterminate due to absence of NSR. Surgical History Surgery Date(Month/Year) Aortic Valve Mechanical Replacement Hospitalization History Reason Date(Month/Year) [facility] worsening dyspnea on e xertion and rest, atypical PNA, Afib, COPD 05/28/2023 [facility] COPD exacerbation, CHF exacerbatio n 05/12/2023
== END 2025-03-30 14:28 | disposition home or self-care (01) ==
LOC: HO.RHES 13:28
PROVIDERS: PCP Internal Medicine; Visit Provider Internal Medicine Rheumatology
DX: M1A.09X0 Idiopathic chronic gout, multiple sites, without tophus (tophi) (principal); L40.50 Arthropathic psoriasis, unspecified; Z79.60 Long term (current) use of unspecified immunomodulators and immunosuppressants
CPT/HCPCS: 99214; G2211

== ENCOUNTER 2025-03-31 11:00 | Outpatient (RCR) | payer MEDICARE, SELFPAY ==
--- NOTE | 2025-03-10 14:21 | MHC.OT.OEV ---
[facility] Office [address] [facility] [phone] F: [phone] F: [phone] Occupational Therapy Evaluation Patient Name: Eddie Styles Diagnosis: (B)tremors Date of Onset: Date of Surgery: Attending Provider: Elvia Aguayo Prescribed Treatment: MD Follow Up Appointment: History of Current Condition: Patient is a 69 y/o (L)hand dominate male with PMHX of but not limited to COPD, HTN, CAD, pacemaker who was referred to skilled OT for (B)hand tremors. Patient reported that he has had the tremors since 1996 but currently they are affecting his ability to perform self care tasks. 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 He stated the tremors come and go but worsen when performing a tasks. At this time he has difficulty with writing, eating, placing the gold ball on the karlos and because of this he does not play golf anymore. He plays cards once a week. Significant Medical History: Hearing deficit Chronic restrictive lung disease Pulmonary nodules Syncope Essential tremor Hypercholesterolemia Hypertension Coronary artery disease COPD (chronic obstructive pulmonary disease) Aortic aneurysm Pulmonary fibrosis Arthritis Precautions/Contraindications: Pacemaker Patient Goals: To play golf again Hand Dominance: Left Observations: QuickDASH Score: Prior Level of Function and Occupation Self Care, Employment, Leisure: (I)ADLs/IADLs Retired from [employer], plays cards Living Situation, Family and/or Social Support: Lives with Current Level of Function and Occupation Self Care, Employment, Leisure: min (A) self care tasks Does not play golf anymore Sleep: Sleeping through the night Driving: Drives Vision: Balance: Pain Assessment Pain Score: 1 Pain Scale Used: Pain Location and Description: 1/10 pain in hands due to arthrisits Aggravating Factors: Alleviating Factors: Tylenol Skin and Soft Tissue Assessment Skin and Soft Tissue: Comments: Skin intact Nerve assessment Ulnar Nerve: Median Nerve: Radial Nerve: Comments: Sensory Assessment Temperature: Light Touch: Proprioception: Vibration: Comments: Edema Assessment Upper Extremity: Lower Extremity: Comments: Dexterity Assessment Dexterity: B/L Impaired Comments: 9 peg hole test (R)19.15, (L) 28.24 -(L)IMPAIRED Functional Dexterity Test (R)36.09, (L)41.51 - IMPAIRED Special Tests Comments: AROM(PROM) Strength Cervical Cervical Flexion: Cervical Extension: Cervical Lateral Flexion: Cervical Rotation: Comments: Shoulder Flexion: Extension: Abduction: Internal Rotation: External Rotation: Comments: WFL 1/10 pain in the shoulders Flexion: Extension: Abduction: Internal Rotation: External Rotation: Comments: Elbow Flexion: Extension: Pronation: Supination: Comments: WFL Flexion: Extension: Pronation: Supination: Comments: Wrist Flexion: (R)73(L)75 Extension: (R)55(L)63 Ulnar Deviation: Radial Deviation: Comments: Flexion: Extension: Ulnar Deviation: Radial Deviation: Comments: Thumb Thumb CMC Flexion: Thumb MCP Flexion: Thumb IP Flexion: Radial Abduction: Palmar Abduction: [employer] (Kapandji 0-10): Comments: Digits Index MCP: PIP: DIP: Long MCP: PIP: DIP: Ring MCP: PIP: DIP: Small MCP: PIP: DIP: Comments: WFL Gross Grasp: (R)72(L)80 Lateral Pinch: (R)13(L)18 Two-Point Pinch: (R)4(L)4 Three-Jaw Dionisio: (R)8(L)11 Comments: Patient Education Primary Language: Schedule Analyst Required: No Current Knowledge: Understands information with skills for self-management Teaching Method: Handouts Verbal Education Needs Identified on Evaluation: ADL's Equipment Use Exercise How did patient/family demonstrate learning? Patient demonstrates Barriers to Learning: None Readiness for Learning: Accepting Who was educated? Patient Comments: Plan of Care Assessment: Based on initial OT evaluation patient presents with impaired coordination, impaired dexterity, impaired ROM and impaired performance during self care tasks. As evident by the 9 Peg Hole Test and the Functional Dexterity Test the (L)UE presents with the greater deficit. Quick DASH= 38.6% indicating patient's perceived impairment of (B)UEs during self care tasks. Due to the documented impairments it is recommended that patient receive skilled OT in order for patient to achieve his maximal potential during therapy. Thank you for your referral. STG Duration: 2 weeks Short Term Goals: Patient will decrease (L)hand 9 Peg hole test time to 23seconds Patient will increase (R)wrist extension to 65* Patient will increase (L)wrist extension to 70* LTG Duration: 4 weeks Prison Goals: Patient will be (I) with HEP Patient's Quick DASH score will decrease to 25% indicating overall improvement of the (B)UE Patient will use AE during self care tasks (I'ly)PRN. Frequency and Duration: The patient will be seen 1x a week for 4 weeks Treatment Plan: Therapeutic Exercise Therapeutic Activity Home Exercise Program Splinting Neuro Re-ed Patient Education Desensitization/Sensory Re-ed Edema Control ADL Training Paraffin Fluidotherapy MHP Cold Packs Joint Mobilization Soft Tissue Mobilization Kinesiotaping Other (see comments) Electronically Signed By: ANGELITA Moise/Geovanni, CLT Reviewed/agree with student documentation: Therapist: Please sign and return to therapist, Thank you for your referral.
--- NOTE | 2025-03-31 15:18 | MHC.OT.DC ---
[facility] Office [address] [phone] F: [phone] F: [phone] Occupational Therapy Discharge Note Patient Name: Eddie Styles Provider: Elvia Aguayo Diagnosis: (B)tremors Date of Surgery: Date of Evaluation: 03/10/25 Date of Discharge: Treatments to Date: 4 Cancellations to Date: No Shows to Date: Discharge Status: Improved Function Independent with HEP Discharge Summary: Patient is d/c'd as has has made slight improvements in his coordination in his (R)hand, improved his Quick DASH score and has established a HEP. Patient was a pleasure to work with. Thank you for your referral. Electronically Signed By: ANGELITA Moise/Geovanni, RAVEN Reviewed/agree with student documentation: Therapist: Please Sign and return to therapist, thank you for your referral.
== END 2025-03-31 15:18 | disposition home or self-care (01) ==
LOC: HO.OT 11:00
PROVIDERS: PCP Internal Medicine; Visit Provider Nurse Practitioner Family
DX: G25.0 Essential tremor (principal)
CPT/HCPCS: 97110; 97165; 97530; 97535

== ENCOUNTER → 2025-04-04 12:04 | Outpatient (BNVA) | payer MEDICARE, SELFPAY | PROVIDERS: PCP Internal Medicine; Visit Provider Internal Medicine Medical Oncology | DX: Z00.00 Encounter for general adult medical examination without abnormal findings (principal); I25.10 Atherosclerotic heart disease of native coronary artery without angina pectoris; I11.0 Hypertensive heart disease with heart failure; I50.32 Chronic diastolic (congestive) heart failure; I48.21 Permanent atrial fibrillation; J41.8 Mixed simple and mucopurulent chronic bronchitis; J84.10 Pulmonary fibrosis, unspecified; G47.33 Obstructive sleep apnea (adult) (pediatric); L40.50 Arthropathic psoriasis, unspecified; M1A.09X0 Idiopathic chronic gout, multiple sites, without tophus (tophi); G25.0 Essential tremor; E78.00 Pure hypercholesterolemia, unspecified; R30.0 Dysuria; E66.9 Obesity, unspecified; Z68.26 Body mass index [BMI] 26.0-26.9, adult; Z13.30 Encounter for screening examination for mental health and behavioral disorders, unspecified; Z95.2 Presence of prosthetic heart valve; Z51.81 Encounter for therapeutic drug level monitoring; Z79.01 Long term (current) use of anticoagulants | CPT/HCPCS: 85610; 96127; 99397 ==

== ENCOUNTER 2025-04-04 15:44 | Outpatient (AMB) | payer MEDICARE, SELFPAY ==
[2025-04-04 15:58] VITALS: BP 124/68; PULSE 78; TEMP 36.2; O2SAT 96; BMI 26.8
--- NOTE | 2025-04-04 15:58 | A.OFFPC_ITS ---
Vital Signs 04/04/25 15:58 Height 6 ft 1 in Weight 203 lb 4 oz BMI 26.8 BP 124/68 Blood Pressure Location Lt brachial Position Sitting Pulse 78 Pulse Source Pulse Oximeter Temp 97.1 F Temp Source Temporal Artery Scan Pulse Oximetry (%) 96 Oxygen Delivery Method Room Air Intake Visit Reasons: PHYSICAL - see comments Allergies rosuvastatin Allergy (Severe, Verified 04/04/25 16:01) muscle aches Medication List - Last Reconciled 04/04/25 by Joey Shetty MD albuterol sulfate 90 mcg/actuation (Ventolin HFA) 2 puffs inhalation Q6H PRN 90 days allopurinol 300 mg PO DAILY amantadine HCl 100 mg PO BID 90 days amoxicillin Frequency: 1 hour before proced 1 day aspirin 81 mg PO DAILY atorvastatin 40 mg PO DAILY bumetanide 2 mg PO DAILY carbidopa-levodopa 25-100 mg 2 tabs PO TID 90 days cholecalciferol (vitamin D3) 50 mcg PO DAILY [CPAP AUTOPAP 6-20 cm water humidified AIR Sleep study done in 05/16/2024 revealing moderately severe obstructive sleep apnea with an AHI of 17 patient was advised CPAP therapy with auto PAP mode pressure setting 6-20 cm] dapagliflozin propanediol (Farxiga) 10 mg PO DAILY jmnthbyvqeb-sgqhxwkqp-euwsaonu 200-62.5-25 mcg (Trelegy Ellipta) 1 inh inhalation DAILY 90 days ipratropium-albuterol 0.5 mg-3 mg(2.5 mg base)/3 mL 3 mL inhalation BID 90 days isosorbide mononitrate ER 60 mg PO DAILY isosorbide mononitrate ER 30 mg PO DAILY latanoprost 0.005% 0 drps ophthalmic (eye) magnesium oxide 800 mg PO DAILY metoprolol tartrate 75 mg PO BID mupirocin 2% 1 appl topical TID nebulizers As directed potassium chloride ER 20 mEq PO BID 90 days propranolol 10 mg PO BID 90 days roflumilast (Daliresp) 500 mcg PO DAILY 90 days sulfasalazine 0.5 grams PO BID 90 days Taltz Autoinjector (ixekizumab) 80 mg subcut Q4W NS warfarin 7.5 mg See Protocol PO .QD Tobacco use date assessed: 04/04/25 Fall risk assessment: No Falls in past year Last assessed Fall Risk: 04/04/25 Dental Screening Dental Screen Date: 04/04/25 Did you have a dental visit in the last 12 months?: Yes Did you have a dental problem in the last 6 months where you did not have access to dental care?: No Was dental information given to patient?: Patient has dentist HPI HPI Comments History of Present Illness Details History of Present Illness The patient is a 69-year-old individual presenting for a physical exam. The patient has intentionally lost 18-20 pounds since the last visit in October. The patient's cardiac history includes bicuspid aortic valve status post mechanical aortic valve replacement and ascending aorta resection in 1996, coronary artery disease with stenting in March 2005, sick sinus syndrome status post dual-chamber pacemaker, congestive heart failure with preserved ejection fraction, and atrial fibrillation. The patient is on chronic anticoagulation with Coumadin and follows with cardiology. Pulmonary history is significant for COPD, pulmonary fibrosis, and obstructive sleep apnea. The patient uses a CPAP for more than 4 hours a night, takes Trelegy daily, roflumilast, and has an albuterol inhaler for rescue which is never used. The patient has a history of psoriasis, psoriatic arthritis, and tremors. The patient follows with rheumatology and was previously treated with a Medrol Dosepak and is currently on sulfasalazine and Taltz injections. Methotrexate and leflunomide are contraindicated due to a history of pulmonary fibrosis. For tremors, the patient sees neurology and takes amantadine, Sinemet, and propranolol. The patient recently visited the ER for left knee pain, which was diagnosed as bursitis. Other medical history includes a tubular adenoma of the colon with the last colonoscopy in May 2021, and cholelithiasis identified on a November CT scan. The patient also has a history of slow wound healing, recently observed with a wound on the right leg. Health Maintenance The patient is advised to continue efforts with diet and exercise for weight management. Follow-up blood work will be ordered in 4-5 months. The patient's immunizations are up to date. An amoxicillin prescription was provided for dental prophylaxis. Social History - Alcohol Use: The patient drinks alcoho l a couple of times a week, having one to two drinks per occasion. - Tobacco Use: Denies smoking. - Activity Level: The patient is not eng aging in a formal exercise routine but remains active with yard work and general mobility, though reports dyspnea on exertion. - Diet: The patient is on a diet and rep orts intentional weight loss. Results - CT chest (November): Showed postoperative changes related to aortic valve replacement and ascending aorta graft repair without complications. Also noted cholelithiasis. - Knee x-ray (January): Revealed degen erative changes. - Labs (March 20): - CBC was normal with no anemia. - Electrolytes were normal with a low no rmal potassium. - Renal function was good. - Blood sugar was 103, with a normal hem oglobin A1c. - Uric acid was 3.3 mg/dL. - Liver function tests were normal. - LDL cholesterol was 62 mg/dL. - Thyroid function was normal. - Sedimentation rate was elevated at 36. - C-reactive protein was slightly elevat ed. [facility] Medical History Hearing deficit Chronic restrictive lung disease Pulmonary nodules Syncope Essential tremor Hypercholesterolemia Hypertension Coronary artery disease COPD (chronic obstructive pulmonary disease) Aortic aneurysm Pulmonary fibrosis Surgical History S/P placement of cardiac pacemaker Aortic valve replaced History of aneurysm History of heart artery stent History of open reduction and internal fixation (ORIF) procedure Family History Mother No problems noted. Father No problems noted. Social History Housing: House Alcohol intake: current Alcohol intake frequency: a few times a week Alcohol type: beer Comment: 2x a week 1-2 drinks Patient Tobacco Use Status: Former Tobacco user Tobacco use type: Cigarette Years Smoked: quit 1996 e-Cigarette/Vaping Use: Never Used Second Hand Smoke Exposure: No service: No Current occupational status: employed Cognitive needs: No Hearing needs: No Vision needs: Yes Questionnaire PHQ-9 Over the last 2 weeks, how often have you been bothered by any of the following problems? 1. Little interest or pleasure in doing things: not at all 2. Feeling down, depressed, or hopeless: not at all 3. Trouble falling or staying asleep, or sleeping too much: not at all 4. Feeling tired or having little energy: not at all 5. Poor appetite or overeating: not at all 6. Feeling bad about yourself - or that you are a failure or have let yourself or your family down: not at all 7. Trouble concentrating on things, such as reading the newspaper or watching television: not at all 8. Moving or speaking so slowly that other people could have noticed. Or the opposite - being so fidgety or restless that you have been moving around a lot more than usual: not at all 9. Thoughts that you would be better off or of hurting yourself in some way: not at all Total score: 0 Source: Developed by Drs. Phillip Douglas, Terra Guy, Carl Denney and colleagues, with an educational leslye from [employer]. Thrive Questionnaire Date Thrive assessed: 10/13/24 I am a: Patient What is your living situation today?: I have a steady place to live Within the past 12 months, did the food you bought not last and you didn't have the money to get more?: Never true Within the past 12 months, did you worry whether your food would run out before you got money to buy more?: Never true Do you have trouble paying for medicines?: No Do you have trouble getting transportation to medical appointments?: No Do you have trouble paying your heating and electricity bill?: No Do you have trouble taking care of your child, family member or friend?: No Do you have trouble with day-to-day activities such as bathing, preparing meals, shopping, managing finances, etc.?: No Are you currently unemployed and looking for a job?: No Are you interested in more education?: No Please select the resources that you would like help with: None Currently or been in a relationship where the following occur: No concerns reported THRIVE Score: 0 AUDIT C Alcohol Use Questionnaire (AUDIT-C) 1. How often do you have a drink containing alcohol?: 2-4 times a month 2. How many drinks containing alcohol do you have on a typical day when you are drinking?: 1 or 2 3. How often do you have six or more drinks on one occasion?: Never Total Score: 2 PARESH-7 AMB Questionnaire PARESH-7 Date PARESH - 7 assessed: 10/13/24 Feeling nervous, anxious, or on edge: 0 = Not at all Not being able to stop or control worryin = Not at all Worrying too much about different things: 0 = Not at all Trouble relaxin = Not at all Being so restless that it is hard to sit still: 0 = Not at all Becoming easily annoyed or irritable: 0 = Not at all Feeling afraid as if something awful might happen: 0 = Not at all Total PARESH-7 score (0-4 normal; 5-9 mild; 10-14 moderate; 15-21 severe): 0 Source: Developed by Drs. Phillip Douglas, Terra Guy, Carl Denney and colleagues, with an educational leslye from [employer]. Review of Systems Narrative Review of Systems - Constitutional: Reports feeling good and has intentional weight loss. Denies fever. - HEENT: Denies problems swallowing. Denies hearing issues, but notes the sound from the mechanical heart valve can interfere with testing. - Cardiovascular: Denies chest pain, palpitations, or syncope. Reports occasional lightheadedness. - Respiratory: Reports shortness of breath with exertion. Denies waking up short of breath and never uses the rescue albuterol inhaler. - Gastrointestinal: Reports good bowel movements. Denies blood in the stool, nausea, and vomiting. - Genitourinary: Reports nocturia, waking up once per night at most. - Musculoskeletal: Reports a recent episode of left knee pain, diagnosed as bursitis, which was bothering the patient a week ago. Reports occasional swelling in the knees and ankles. - Skin: Reports a slowly healing wound on the right leg. - Neurological: Reports tremors. Denies dizziness. Const Denies poor appetite and Denies weakness Eyes Denies no additional complaints ENT Reports Normal hearing present, Denies dizziness, Denies nasal congestion, Denies tinnitus and Denies sore throat Card Denies chest pain, Denies syncope, Denies rapid heart rate and Denies dyspnea Resp Denies cough and Denies dyspnea GI Denies change in stool character, Reports constipation, Denies diarrhea, Denies nausea and Denies vomiting Denies dysuria and Denies urinary frequency Neuro Reports Normal hearing present, Denies confusion, Denies dizziness, Denies syncope and Denies weakness Psych Denies confusion Physical exam (Primary Care) Vital Signs: Last Vital Signs Temp 97.1 F 04/04/25 15:58 Pulse 78 04/04/25 15:58 BP 124/68 04/04/25 15:58 Pulse Ox 96 04/04/25 15:58 Oxygen Delivery Method Room Air 04/04/25 15:58 BMI result Body Mass Index 26.8 Tobacco/Smoking Status: Tobacco use Status Tobacco use date assessed 04/04/25 04/04/25 16:03 Patient Tobacco Use Status Former Tobacco user 04/04/25 16:03 Tobacco use type Cigarette 04/04/25 16:03 e-Cigarette/Vaping Use Never Used 04/04/25 16:03 PHQ-9: PHQ-9 Score PHQ-9: Total score 0 04/04/25 17:44 Thrive Assessment: Date of Thrive Assessment Date Thrive assessed 10/13/24 04/04/25 16:03 Currently or been in a relationship where the following occur: No concerns reported Narrative Physical Exam General: Cooperative, healthy appearing, comfortable, no acute distress and well developed Orientation: Patient oriented x3 Limitations: No limitations Head: Normal to inspection Ears: Hearing grossly normal bilaterally, some ear wax present but open Nose: Normal external nose present Face and sinus: Normal facial exam Eyes: Appearance normal, both eyes and all related structures Neck: Normal visual inspection and Yes full ROM Respiratory: Normal respiratory effort and able to speak in complete sentences. Clear to auscultation bilaterally Cardiovascular: Regular rate and rhythm. Normal S1 and S2 GI: Normal to inspection. Soft to palpation and nontender Skin: No rashes or lesions noted, wound on right leg healing with scab and dry Neuro: Patient oriented x3 Extremities: Normal to inspection, bursitis in left knee noted, arthritis present Const General: No confusion Orientation/consciousness: No confusion [facility] Head: Yes normocephalic Ears: external ears normal and TM's normal bilaterally Face and sinus: Yes normal facial exam Mouth: moist mucous membranes Throat: Yes tonsils normal Eyes Conjunctivae: conjunctivae normal Pupils: Equal, round and reactive pupils present and Pupil accommodation reflex normal Direct Ophthalmoscopy: normal light reflex Neck Neck: No lymphadenopathy Thyroid: Thyroid normal Chest Chest palpation & inspection: normal inspection of the chest Resp Effort & Inspection: normal respiratory effort and no audible wheezes Auscultation: clear to auscultation bilaterally, no crackles, no wheezes and lung sounds not diminished Cardio Other: Irregular heart rate with systolic click Peripheral pulses: radial pulses present and dorsalis pedis present GI Palpation (GI): no masses Auscultation: normal bowel sounds and normoactive bowel sounds Rectal Exam - Male: Yes deferred Skin General skin exam: no rashes or lesions noted Rashes: no rashes Neuro General: No confusion Cranial nerves: Yes Equal, round and reactive pupils present and Yes Normal hearing present Cognition (Neuro): normal cognition Gait exam (Neuro): Normal gait present Motor exam (neuro): 5/5 motor strength present throughout Deep tendon reflexes (DTR's): Right brachioradialis reflex intensity grade: 2+, Left brachioradialis reflex intensity grade: 2+, Right patellar reflex intensity grade: 2+ and Left patellar reflex intensity grade: 2+ Extrem General: No edema Results AMB INR Fingerstick AMB INR Fingerstick 2.4 Last Edit by Kami Westfall RN on 04/04/25 12:14 HOME METER Coding Level of Care Code Est Pt Prev Care >65y(67454) Diagnoses Annual physical exam Z00.00 Obstructive sleep apnea G47.33 Psoriasis L40.9 Mixed simple and mucopurulent chronic bronchitis J41.8 COPD type: chronic bronchitis Chronic bronchitis type: mixed simple and mucopurulent Pulmonary fibrosis J84.10 Essential tremor G25.0 Psoriatic arthritis L40.50 Idiopathic chronic gout of multiple sites without tophus [id number].[id number] Chronicity: chronic Gout etiology: idiopathic Gout site: multiple sites Presence of tophus: without tophus Obesity (BMI 30-39.9) E66.9 Permanent atrial fibrillation I48.21 Atrial fibrillation type: permanent Coronary artery disease involving [place] coronary artery of [place] heart without angina pectoris I25.10 Associated angina: without angina Coronary Disease-Associated Artery/Lesion type: [place] artery [place] vs. transplanted heart: [place] heart Aortic valve replaced Z95.2 Chronic heart failure with preserved ejection fraction I50.32 Heart failure chronicity: chronic Essential hypertension I10 Hypertension type: essential hypertension Assessment & Plan Assessment & Plan (1) Annual physical exam: Code(s): Z00.00 - Encounter for general adult medical examination without abnormal findings Category: Medical Plan: Patient is advised to eat healthy, keep well hydrated, keep active and have adequate sleep. (2) Obstructive sleep apnea: Comment: Sleep study done in 05/16/2024 revealing moderately severe obstructive sleep apnea with an AHI of 17 patient was advised CPAP therapy with auto PAP mode pressure setting 6-20 cm Code(s): G47.33 - Obstructive sleep apnea (adult) (pediatric) Category: Medical Plan: Continue to use the CPAP more than 4 hours a night and benefits from this. (3) Psoriasis: Comment: Controlled on Taltz Code(s): L40.9 - Psoriasis, unspecified Category: Medical Plan: Continue to follow-up with dermatology (4) COPD (chronic obstructive pulmonary disease): Code(s): J44.9 - Chronic obstructive pulmonary disease, unspecified Category: Medical Qualifiers: COPD type: chronic bronchitis Chronic bronchitis type: mixed simple and mucopurulent Qualified Code(s): J41.8 - Mixed simple and mucopurulent chronic bronchitis Plan: Patient on albuterol inhaler and Trelegy (5) Pulmonary fibrosis: Comment: Small area of scarring at the left base. No evidence of active ILD. 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 Code(s): G25.0 - Essential tremor Category: Medical Plan: Patient has been seeing Neurology and has been placed on beta haley with amantadine and levodopa carbidopa (7) Psoriatic arthritis: Comment: He has had recurrent knee swelling, foot pain and stiffness in the morning due to uncontrolled psoriatic arthritis. His uric acid level prior to episodes have been at goal less than 6. He has elevated inflammatory markers. Less likely related to gout attack. We discussed acute management of his symptoms with Medrol Dosepak. He has never had any side effect from prednisone in the past. Discussed rare risk of development of palmar plantar pustulosis in individuals with psoriasis who take glucocorticoids. He recently started DMARD Sulfasalazine. He needs more time for full benefit of Sulfasalazine. Rheumatology history: Initially he had psoriasis that eventually developed a psoriatic arthritis involving his feet presenting with swelling and pain in f eet. Otelza ineffective Humira started January 2023. Effective I DC'd it 11/2023 due to his history of CHF. Taltz started 12/2023 effective for skin and joints. SSZ 02/2025-. Avoiding methotrexate and leflunomide due to history of pulmonary fibrosis. CTA chest 2024 surveillance exam for monitoring aortic aneurysm reveal small area of scarring in the left base without evidence of active ILD. Code(s): L40.50 - Arthropathic psoriasis, unspecified Category: Medical Plan: Patient follows up with Rheumatology also (8) Gout: Comment: Controlled on allopurinol 300 mg daily. Uric acid level is at goal <6.0. Rheumatology history: Allopurinol started February 2023 Code(s): M10.9 - Gout, unspecified Category: Medical Qualifiers: Chronicity: chronic Gout etiology: idiopathic Gout site: multiple sites Presence of tophus: without tophus Qualified Code(s): M1A.09X0 - Idiopathic chronic gout, multiple sites, without tophus (tophi) Plan: Low purine diet and keep keep well hydrated (9) Obesity (BMI 30-39.9): Code(s): E66.9 - Obesity, unspecified Category: Medical Plan: Diet and exercise (10) Atrial fibrillation: Comment: PAtient mentioned Code(s): I48.91 - Unspecified atrial fibrillation Category: Medical Qualifiers: Atrial fibrillation type: permanent Qualified Code(s): I48.21 - Permanent atrial fibrillation Plan: Continue with anticoagulation has metoprolol 75 mg twice a day (11) Coronary artery disease: Comment: RCA stenosis nuclear perfusion April, July 2019 catheterization no severe obstructive coronary artery disease Code(s): I25.10 - Atherosclerotic heart disease of [place] coronary artery without angina pectoris Category: Medical Qualifiers: Associated angina: without angina Coronary Disease-Associated Artery/Lesion type: [place] artery [place] vs. transplanted heart: [place] heart Qualified Code(s): I25.10 - Atherosclerotic heart disease of [place] coronary artery without angina pectoris Plan: Control the cholesterol, weight, blood pressure, on anticoagulation with Coumad in (12) Aortic valve replaced: Comment: Bicuspid Dr. White [address]# 25 mechanical valve Code(s): Z95.2 - Presence of prosthetic heart valve Category: Surgical Plan: Continue with anticoagulation patient follows up with Cardiology (13) (HFpEF) heart failure with preserved ejection fraction: Code(s): I50.30 - Unspecified diastolic (congestive) heart failure Category: Medical Qualifiers: Heart failure chronicity: chronic Qualified Code(s): I50.32 - Chronic diastolic (congestive) heart failure Plan: Stable on diuretics, weigh daily (14) Hypertension: Code(s): I10 - Essential (primary) hypertension Category: Medical Qualifiers: Hypertension type: essential hypertension Qualified Code(s): I10 - Essential (primary) hypertension Plan: Continue with blood pressure medication. Decrease salt intake and exercise propranolol 10 mg twice a day metoprolol 75 mg twice a day isosorbide 60 mg once a day Plan Plan Patient was informed and verbally consented to the use of an ambient scribe for clinic note documentation during this visit. 1. Chronic Obstructive Pulmonary Disease Continue current management with Trelegy, Daliresp, and albuterol inhaler as needed. Continue to monitor. 2. Coronary Artery Disease Status Post-Stenting Continue anticoagulation with Coumadin and atorvastatin for hypercholesterolemia. The patient will continue to follow up with cardiology. 3. Atrial Fibrillation And Congestive Heart Failure Continue anticoagulation. Management with metoprolol 75 mg twice a day and diuretics is stable. The patient is advised to weigh daily. 4. Hypertension Continue current regimen of propranolol 10 mg twice a day, metoprolol 75 mg twice a day, and isosorbide 60 mg once a day. 5. Obstructive Sleep Apnea Continue to use CPAP for more than 4 hours a night. 6. Psoriatic Arthritis Continue to follow up with rheumatology. Advised to maintain a low purine diet and stay well hydrated. Continue sulfasalazine and Taltz injections. 7. Essential Tremor Continue follow-up with neurology. Continue current medications including a beta-haley, amantadine, and carbidopa/levodopa. Discussion Notes I reviewed the patient's extensive medical history and recent specialist notes from cardiology and rheumatology. We discussed the slowly healing wound on the right leg, noting that it is dry, scabbed, and does not appear infected, although certain medications like Taltz could be contributing to the delayed healing. I complimented the patient on the significant intentional weight loss of 18-20 pounds, which is very beneficial for overall health. We reviewed the current medication list. I noted the COPD is well-controlled, as evidenced by the lack of need for the rescue inhaler. The current cardiology plan, including the dose of metoprolol, was discussed and deemed appropriate to continue, as it is not contributing to respiratory symptoms. I reviewed the March lab results with the patient, highlighting the excellent kidney function, well-controlled LDL cholesterol at 62, and normal hemoglobin A1c. We also noted the slightly elevated inflammatory markers (sedimentation rate and C- reactive protein), which are consistent with the diagnosis of psoriatic arthritis. I informed the patient that a physical exam was performed and findings were generally reassuring. A hernia check was performed and was negative, and the patient declined a rectal exam but denied any blood in the stool. We discussed that follow-up blood work would be needed in about 4-5 months, and a lab requisition form would be provided. Patient Instructions - Continue with your diet and exercise to maintain a healthy weight. - Use your CPAP machine for more than 4 hours every night. - Continue to keep your follow-up appointments with your specialists for dermatology, rheumatology, neurology, and cardiology. - Follow a low-purine diet and drink plenty of water. - A prescription for amoxicillin was sent to your pharmacy for your upcoming dental visit. - Continue all your current medications as prescribed. This includes medications for your heart, blood pressure, cholesterol, COPD, tremors, and arthritis. - Your immunizations are all up to date. - We will plan to get new blood tests done in about 4 to 5 months. Orders: Orders Lipid Panel 4 Months E78.00 - Pure hypercholesterolemia, unspecified, I25.10 - Atherosclerotic heart disease of [place] coronary artery without angina pectoris UA CC w/rflx Micro + Cult 4 Months I25.10 - Atherosclerotic heart disease of [place] coronary artery without angina pectoris, R30.0 - Dysuria Prostate Specific Antigen Scr 4 Months I25.10 - Atherosclerotic heart disease of [place] coronary artery without angina pectoris Complete Blood Count Auto Diff 4 Months I25.10 - Atherosclerotic heart disease of [place] coronary artery without angina pectoris Comprehensive Met. Panel 4 Months I25.10 - Atherosclerotic heart disease of [place] coronary artery without angina pectoris NT Pro B Type Natriuretic Pept 4 Months I25.10 - Atherosclerotic heart disease of [place] coronary artery without angina pectoris Free T4 (Free Thyroxine) 4 Months I25.10 - Atherosclerotic heart disease of [place] coronary artery without angina pectoris Thyroid Stimulating Hormone 4 Months I25.10 - Atherosclerotic heart disease of [place] coronary artery without angina pectoris Vitamin B12 and Folate 4 Months I25.10 - Atherosclerotic heart disease of [place] coronary artery without angina pectoris Hemoglobin A1c 4 Months I25.10 - Atherosclerotic heart disease of [place] coronary artery without angina pectoris Magnesium 4 Months I25.10 - Atherosclerotic heart disease of [place] coronary artery without angina pectoris Medications: Refilled amoxicillin Frequency: 1 hour before proced 4 caps 2RF 1 day M72.2 - Plantar fascial fibromatosis
== END 2025-04-04 16:47 | disposition home or self-care (01) ==
LOC: HO.HMCH 15:45
PROVIDERS: PCP Internal Medicine; Visit Provider Internal Medicine
DX: Z00.00 Encounter for general adult medical examination without abnormal findings (principal); G47.33 Obstructive sleep apnea (adult) (pediatric); L40.9 Psoriasis, unspecified; J41.8 Mixed simple and mucopurulent chronic bronchitis; J84.10 Pulmonary fibrosis, unspecified; G25.0 Essential tremor; L40.50 Arthropathic psoriasis, unspecified; M1A.09X0 Idiopathic chronic gout, multiple sites, without tophus (tophi); E66.9 Obesity, unspecified; I48.21 Permanent atrial fibrillation; I50.32 Chronic diastolic (congestive) heart failure; Z95.2 Presence of prosthetic heart valve; I25.10 Atherosclerotic heart disease of native coronary artery without angina pectoris; I10 Essential (primary) hypertension

== ENCOUNTER 2025-04-13 14:34 | Outpatient (AMB) | payer MEDICARE, SELFPAY ==
--- OUTSIDE RECORDS SUMMARY | 2023-11-06 08:30 | XMS_ITS ---
Author Organization [facility] Address [address] [place] [address] Care Team Providers Care Sales Solutions Representative Name Role Phone Joey Shetty Primary Care Provider Lilian Augustin [phone] Syed Encounters Encounter Location Date Provider Diagnosis [address] [address] 11/06/2023 Lilian Monte Plan Of Treatment Next Appt Details Provider Name:Lilian ferris, 06/06/2025 11:00:00 AM, [address] [place], [address], Progress Notes * Eddie GASTONDOB: [birth year] (69 yo M)Acc No.[id number]:11/06/2023 Progress Note Patient: Koko MUÑOZEddie Provider: Geovanni Monte DPM :1955 A ge:68 Y S ex:Male Date:11/06/2023 Address:[address] [place] [address] [id number] Pcp:Joey Shetty Subjective: * Chief Complaints: * [address] Syed. * Medical History: Objective: * Vitals: Assessment: Plan: * Treatment: * Images: * The named appointment provid er may or may not be the originator of this progress note, and it is not deemed complete until electronically signed by the appointment provider. Sign off status: Pending * Provider: Geovanni Monte DPM Date: 0 11/06/2023 Generated for Jasper espana/Sowmya/Maryam on: 1 06/14/2024 08:25 PM EST
--- OUTSIDE RECORDS SUMMARY | 2024-01-27 08:00 | XMS_ITS ---
Author Organization [facility] Address [address] [place] [address] Care Team Providers Care Manager Wholesale Name Role Phone Joey Shetty Primary Care Provider Lilian Augustin [phone] Encounters Encounter Location Date Provider Diagnosis [address] [address] 01/27/2024 Lilian Monte Plan Of Treatment Next Appt Details Provider Name:Lilian ferris, 06/06/2025 11:00:00 AM, [address] [place], [address], Progress Notes * Eddie GASTONDOB: [birth year] (69 yo M)Acc No.[id number]:01/27/2024 Progress Note Patient: Koko MUÑOZEddie Provider: Geovanni Monte DPM :1955 A ge:68 Y S ex:Male Date:01/27/2024 Address:[address] [place] [address] [id number] Pcp:Joey Shetty Subjective: * Chief Complaints: * * Medical History: Objective: * Vitals: Assessment: Plan: * Treatment: * Images: * The named appointment provid er may or may not be the originator of this progress note, and it is not deemed complete until electronically signed by the appointment provider. Sign off status: Pending * Provider: Geovanni Monte DPM Date: 0 01/27/2024 Generated for Jasper espana/Sowmya/Maryam on: 1 06/14/2024 08:24 PM EST
[2025-04-13 14:42] VITALS: BP 124/70; PULSE 70; O2SAT 97; BMI 26.8
--- NOTE | 2025-04-13 14:42 | A.OFFVIS_ITS ---
Vital Signs 04/13/25 14:42 Height 6 ft 1 in Weight 202 lb 13.204 oz BMI 26.8 BP 124/70 Blood Pressure Location Lt brachial Position Sitting Pulse 70 Pulse Source Pulse Oximeter Pulse Oximetry (%) 97 Oxygen Delivery Method Room Air Intake Visit Reasons: COPD Opinion Polls Survey Worker Required: No Accompanied by: Self / Same As Patient Allergies rosuvastatin Allergy (Severe, Verified 04/13/25 14:45) muscle aches HPI Comments Details: The patient is a 69-year-old gentleman with a history of former smoking apparently was having respiratory symptoms back for several years now. Back in 2016 he was evaluated by Pulmonary in had a pulmonary function studies demonstrating a moderate restrictive ventilatory defect. CT scan of the chest demonstrated some interstitial changes the bases suggesting some pulmonary fibrosis and given a diagnosis of interstitial lung disease. In the meantime he also has valvular disease and status post aortic mechanical valve replacement and does follow up closely with cardiology for his coronary artery disease. Patient is noticed that for the last several months he has had progressive shortness of breath. Moderate to severe to the point that he could not even walk to the mailbox from his home due to shortness of breath. He has lost weight since he loss had his PFTs in 2016 but he still overweight. More recently he did undergo a repeat CT scan of the chest demonstrating some persistent changes to the lungs, but, those were done at [facility] and I would have to review those films. Explained to him that that likely that he does have some interstitial changes and we have to review his previous imaging to see if he has any progression. He denies any exposure to any farms or any significant occupational exposures. He says he does live in an old house and does have some asbestos exposed but he has not worked directly with the asbestos. He was evaluated by his primary care doctor because of the shortness of breath and he was placed on Advair. He feels that his breathing has dramatically gotten much improved. 09/02/2022 the patient is here for pulmonary follow-up he otherwise patient is doing about the same. Continue have it on exertion moderate severity. He is still working. The patient is not exercising regularly. We did offer him pulmonary rehabilitation but is not interested. I did give him a online pulmonary rehab that he consider. We did look at his pulmonary function studies and he does have a total lung capacity 55% predicted. Explained to him that this is the major and cart of his respiratory symptoms. We did look at the CAT scan that he had back in 02/28/2020 demonstrating some bibasilar scarring in addition to significant mosaic pattern. She continues use the budesonide and also albuterol. He does not feel like the albuterol is working effectively. Therefore, will switch him to DuoNeb. He is going to have another CT scan in February in regards of his aneurysm and also we can address the pulmonary issues and will repeat his PFTs in a year's time. 09/28/2023 the patient is here for a pulmonary follow-up visit. He continues have significant dyspnea on exertion. Moderate severity. Back in May the patient was admitted to hospital in [facility] for respiratory symptoms. He was initially admitted and discharged in then he went back to the hospital. He did have a CT scan of the chest demonstrating reticulonodular opacities bilaterally suggesting of an atypical pneumonia. The patient is treated appropriately. She was also having significant rhonchi and wheezing at the time. He also was volume overloaded and treated with diuretics. He was able to be discharged. He more recently did follow-up with a CT scan of here. I did personally reviewed. He has some areas of atelectasis primarily the left base and some evidence of chronic bronchitis and some mosaic pattern. He has been on nebulized therapy. Although I do believe he did better on Trelegy inhaler. Therefore I did give him a sample for month and I did send a 90 day supply to the pharmacy. We will go ahead and stop the formoterol and he will hopefully wean off the budesonide. The patient also had pulmonary function studies which we personally reviewed. He has a mixed both obstructive and restrictive ventilatory defects. Both pretty significant. Likely both contributing to his dyspnea symptoms. The patient is willing to start pulmonary rehabilitation which I believe will also help him with his underlying respiratory issues. He also has a cardiac history and aneurysms. He will be following up with Cardiology closely. It is reassuring that the CT scan did not see any significa nt changes in the aneurysms. 04/04/2024 the patient is here for a pulmonary follow-up visit. The patient overall has been doing okay. He has been noticing a little wheezing. Jkfg-ax-[id number] severity. Also chest congestion. The patient has been on the Trelegy inhaler has been affecting beneficial. He still needs his nebulizer treatments twice a day because of the wheezing. In addition to that he completed the 8 weeks of pulmonary rehabilitation which she finds very helpful. He did have a CT scan of the chest in 08/29/2023 which I personally reviewed. 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 Seems like his cardiac issues are stable. His lungs still show some mosaic changes consistent with his history of small airways disease it asthma although this appears to be better when compared to his previous CT scans. The patient also has psoriatic arthritis. His working closely with rheumatology for that. In view of his chronic bronchitis in obstructive lung disease he will be a very good candidate for Daliresp. Will send him prescription to the pharmacy. He will start slowly to minimize on the adverse effects hopefully until he develops tolerance. Then he can take it daily. I am hopeful that this will help him with his persistent chronic obstructive pulmonary disease. The patient also is having daytime drowsiness. His [place] score is elevated 11/24. The patient needs to have a sleep study. Will go ahead and follow-up with the results of the sleep study that had been already placed. Will go ahead and review the study afterwards. If he demonstrates underlying sleep apnea the patient does have significant cardiovascular risk factors and will benefit from PAP therapy. Therefore will follow-up after the results. 10/07/2024 the patient is here for a pulmonary follow-up visit. Overall the patient has been doing well. Back in August started developing severe pleuritic chest discomfort. Primarily on the left side. He went to the ER because he was too severe. There he did have a CT scan of the chest and also of the abdomen. The only finding was an opacity in the left lower lobe. Likely a component of pleurisy. The patient did improve by self without any medications. Will going to have to look at the area on decide if any additional imaging is warranted. In the meantime he continues on the Daliresp and he has been doing well on it. He taking the 250 mcg dose. Will go ahead increase to the 500 mcg dose. He continues with respiratory inhalers with good results. Will plan to follow-up in 6 months. I did personally review the CT scan demonstrating the airspace disease in the left lower lobe and also some degree of pleural-based thickening consistent with pleurisy and likely a component of low lower respiratory infection. At this point the patient feels better I do appreciate any rubs or crackles and I do not believe he needs any additional imaging at this time. Although when he returns in 6 months will plan to do an x-ray. He has any issues prior to that he will call for an earlier assessment. 04/13/2025 the patient is here for pulmonary follow-up visit. The patient overall has been doing well. Respiratory status is stable. He is tolerating his respiratory medications well. He is tolerating the Daliresp 500 mcg dose as well. He has lost some weight which is reassuring. The patient is also using CPAP. CPAP therapy has been affecting beneficial. He does use it for more than 4 hours a night. Will try to get access from [employer] [facility] for his machine to see if we have to adjusted. Also requesting for supplies. In the meantime the patient denies any difficulty with his breathing overall he is doing well. Will plan to have a repeat x-ray sometime in 6-8 months to follow- up with the left lower lobe airspace disease that he had back in the spring. If he has any issues prior to this she can always call for an earlier assessment otherwise I will see him then. [facility] Medical History Hearing deficit Chronic restrictive lung disease Pulmonary nodules Syncope Essential tremor Hypercholesterolemia Hypertension Coronary artery disease COPD (chronic obstructive pulmonary disease) Aortic aneurysm Pulmonary fibrosis Surgical History S/P placement of cardiac pacemaker Aortic valve replaced History of aneurysm History of heart artery stent History of open reduction and internal fixation (ORIF) procedure Family History Mother No problems noted. Father No problems noted. Social History Housing: House Alcohol intake: current Alcohol intake frequency: a few times a week Alcohol type: beer Comment: 2x a week 1-2 drinks Patient Tobacco Use Status: Former Tobacco user Tobacco use type: Cigarette Years Smoked: quit 1996 e-Cigarette/Vaping Use: Never Used Second Hand Smoke Exposure: No service: No Current occupational status: employed Cognitive needs: No Hearing needs: No Vision needs: Yes Review of Systems Const Denies body aches, Denies chills, Denies fever(s), Denies headache(s) and Denies weakness Eyes Denies blurry vision, Denies change in vision and Denies other visual disturbances ENT Denies dizziness, Denies headache(s), Denies nasal trauma, Denies neck pain, Denies disequilibrium, Denies sinus pressure and Denies sore throat Card Denies chest pain, Denies chest pain with activity, Denies leg edema, Denies palpitations, Denies dyspnea, Reports dyspnea on exertion, Denies orthopnea and Denies paroxysmal nocturnal dyspnea Resp Denies chest congestion, Reports cough, Denies pain on inspiration, Denies dyspnea, Reports dyspnea on exertion and Denies wheezing GI Denies abdominal pain, Denies change in bowel habits, Denies constipation, D enies diarrhea, Denies nausea and Denies vomiting Denies hematuria, Denies dysuria, Denies urinary frequency and Denies urinary urgency Musc Denies back pain, Denies arthralgias, Denies joint swelling and Denies neck pain Skin/Breast Denies lesions and Denies rash Neuro Denies confusion, Denies dizziness, Denies headache(s), Denies paresthesias, Denies disequilibrium and Denies weakness Psych Denies anxiety, Denies confusion, Denies depression and Denies suicidal ideation Endo Denies polydipsia, Denies polyuria and Denies palpitations Aller/Immun Denies wheezing Physical Exam Vital Signs: Last Vital Signs Pulse 70 04/13/25 14:42 BP 124/70 04/13/25 14:42 Pulse Ox 97 04/13/25 14:42 Oxygen Delivery Method Room Air 04/13/25 14:42 BMI result Body Mass Index 26.8 Const General: No confusion Orientation/consciousness: No confusion HEENT General nose exam: Abnormal external nose present and Nasal discharge present Eyes Pupils: Equal, round and reactive pupils present Neck Neck: Yes normal visual inspection, Yes full ROM and Yes no lymphadenopathy Chest Chest palpation & inspection: normal inspection of the chest Resp Effort & Inspection: normal respiratory effort Auscultation: no wheezes and diminished lung sounds Cardio Rate: regular rate Rhythm: regular rhythm Heart sounds: S1 normal heart sound present and S2 normal heart sound present GI Palpation (GI): Soft to palpation and nontender Auscultation: normal bowel sounds General: Yes no CVA tenderness Back/Spine/Pelvis Back: no CVA tenderness Skin General skin exam: rashes and/or lesions noted Neuro General: No confusion Cranial nerves: Yes Equal, round and reactive pupils present Assessment & Plan Assessment & Plan (1) COPD (chronic obstructive pulmonary disease): Code(s): J44.9 - Chronic obstructive pulmonary disease, unspecified Category: Medical Qualifiers: COPD type: chronic bronchitis Chronic bronchitis type: mixed simple and mucopurulent Qualified Code(s): J41.8 - Mixed simple and mucopurulent chronic bronchitis Plan: Duonebs BID Decrease Budesonide as tolerated ideally to 0.25mg to minimize risk of worsening cataracts (2) Pulmonary fibrosis: Comment: Small area of scarring at the left base. No evidence of active ILD. Code(s): J84.10 - Pulmonary fibrosis, unspecified Category: Medical (3) Pulmonary nodules: Code(s): R91.8 - Other nonspecific abnormal finding of lung field Category: Medical (4) Chronic restrictive lung disease: Code(s): J98.4 - Other disorders of lung Category: Medical Plan continue Trelegy 200 Duoneb BID Daliresp 500 pulmonary exercise short-acting beta agonist as needed CXR follow-up in 6 months Orders: Orders XR chest 2V Today J84.10 - Pulmonary fibrosis, unspecified Medications: Refilled [id number] 200-62.5-25 mcg (Trelegy Ellipta) 1 inh inhalation DAILY 3 ea 3RF 90 days Coding Level of Care Code Complex visit Add On G2211 Diagnoses Mixed simple and mucopurulent chronic bronchitis J41.8 COPD type: chronic bronchitis Chronic bronchitis type: mixed simple and mucopurulent Pulmonary fibrosis J84.10 Pulmonary nodules R91.8 Chronic restrictive lung disease J98.4 Time Spent (min) 16
--- OUTSIDE RECORDS SUMMARY | 2025-04-13 20:25 | XMS_ITS | Patient Health Record ---
Author Organization [facility] Susie benavidez Billing Info Address [address] [place] [id number] Care Team Providers [employer] Drier Name Role Phone BOGDAN FERGUSON Primary Care [...] Problem Status W/U Status Risk Notes Problem [id number] Obesity (BMI 30-39.9) (E66.9) Active confirmed Problem [id number] Overweight (BMI 25.0-29.9) (E66.3) Active confirmed Plan Of Treatment Pending Test Test Name Order Date BASIC METABOLIC PANEL([facility]-CHEM7) 2023 Future Test Test Name Order Date Basic Metabolic Panel (8) (-[id number] ) 05/20/2023 Basic Metabolic Panel (8) ([id number] ) 06/10/2023 Basic Metabolic Panel (8) ([id number] ) 07/22/2023 Insurance Providers Payer Name Payer Address Payer Phone Subscriber Number Group Number Insured Name Patient Relationship to Insured Coverage Start Date Coverage End Date [facility] MEDIC[facility] PPO/[id number] [address] [address] [facility] [facility] [place] [id number] [phone] [id number] Eddie Gaston Self - patient is the [...] with Preserved Ejection Fr action COPD 05/14/2022 [facility] Cardiac Ech o: Left ventricle: Normal global systolic left ventricular function. Ejection fraction was estimated in the range of 50% to 55%. Regional wall motion was normal. Diastolic function was indeterminate due to absence of NSR. Surgical History Surgery Date(Month/Year) Aortic Valve Mechanical Replacement Hospitalization History Reason Date(Month/Year) [facility] worsening dyspnea on e xertion and rest, atypical PNA, Afib, COPD 05/28/2023 [facility] COPD exacerbation, CHF exacerbatio n 05/12/2023
--- OUTSIDE RECORDS SUMMARY | 2025-04-13 20:25 | XMS_ITS | Clinical Summary ---
Author Organization [facility] Address [address] [place] [address] Phone Care Team Providers Care Rod And Tube Straightener Name Role Phone Joey Shetty MD Primary Care Provider [phone] Allergies No known active allergies Medications isosorbide [...] sick sinus syndrome by Dr. Wolfe at [facility] Assessment & Plan (08/21/2024 9:28 AM EDT): Device functioning well on last check. Periodic pacing. Continue to monitor via [facility] device [facility]. History of mechanical aortic valve replacement 0 08/21/2024 Overview (08/21/2024): 1996 bicuspid aortic valve status post mechanical [facility]vel[facility] aortic valve replacement Assessment & Plan (04/03/2025 10:21 AM EST): On lifelong warfarin. Excellent function on physical examination and prior echocardiography. Orders: ECG 12 lead Transthoracic echocardiogram (TTE) complete with PRN contrast, bubble, strain, and 3D order panel; Future Assessment & Plan (11/14/2024 4:22 PM EDT): [...] SIENA on CPAP 08/21/2024 Assessment & Plan (04/03/2025 10:21 AM EST): Tolerating device therapy Orders: ECG 12 lead Assessment & Plan (11/14/2024 4:22 PM EDT): Compliant with device therapy. Assessment & Plan (08/21/2024 9:28 AM EDT): Continue with CPAP. Acute on chronic diastolic h eart failure (CMS/HCC V24, CMS/HCC V28) 09/18/2022 Assessment & Plan (04/03/2025 10:21 AM EST): Patient has chronic diastolic dysfunction but at this time does not have any active evidence of pulmonary congestion or peripheral edema. He has responded favorably to Farxiga. The lion's share of his breathlessness appears to be due to underlying pulmonary disease. I considered decreasing his metoprolol dose in case it might be aggravating bronchoconstriction but it does seem that his heart rate increases significantly with minor activity. Accordingly I did not make any changes in his medical regimen today. I will update his echocardiogram prior to repeat clinical assessment in the office in about 6 months. Orders: ECG 12 lead Assessment & Plan (11/14/2024 6:45 PM EDT): [...] Continue with metoprolol and warfarin. Followed by [facility] coumadin clinic. Orders: ECG 12 lead Ascending [...] Followed by CT surgery Assessment & Plan (04/03/2025 10:21 AM EST): Stable. Significantly enlarged many years following aneurysm repair. Followed intermittently by Dr. Kulwinder Prado. Orders: ECG 12 lead Transthoracic echocardiogram (TTE) complete with PRN contrast, bubble, strain, and 3D order panel; Future Assessment & Plan (11/14/2024 6:43 PM EDT): [...] clinically indicated. Dyslipidemia 11/13/2020 Assessment & Plan (04/03/2025 10:21 AM EST): Tolerating atorvastatin 40 mg daily. Goal is for LDL cholesterol less than 70 mg/dL in the setting of chronic ischemic heart disease. Orders: ECG 12 lead Assessment & Plan (11/14/2024 4:22 PM EDT): Assessment & Plan (08/21/2024 9:28 AM EDT): Continue with atorvastatin. Essential hypertension 11/13/2020 Assessment & Plan (04/03/2025 10:21 AM EST): Well-controlled. Orders: ECG 12 lead Assessment & Plan (11/14/2024 6:43 PM EDT): [...] disease with patent stent Assessment & Plan (04/03/2025 10:21 AM EST): No active angina at this time. Continue antiischemic regimen as well as secondary prevention. Orders: ECG 12 lead Assessment & Plan (11/14/2024 6:43 PM EDT): [...] Encounters Date Type Department Care Team Description 04/03/2025 9:20 AM EST Office Visit [facility]iology 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; Essential hypertension; Dyslipidemia; History of mechanical aortic valve replacement 03/23/2025 1:00 PM EST Ancillary Procedure [facility] Cardiology [facility] [address] [place] [address] Encounter for adjustment or management of cardiac device 03/18/2025 6:10 AM EST Ancillary Procedure [facility] Cardiology [facility] [address] [place] [address] from Last 3 Months Medical History Medical [...] Sign Reading Time Taken Comments Blood Pressure 110/64 04/03/2025 9:12 AM EST Pulse 72 04/03/2025 9:12 AM EST Temperature - - Respiratory Rate - - Oxygen Saturation 96% 04/03/2025 9:12 AM EST Inhaled Oxygen Concentration - - Weight 93 kg (205 lb) 04/03/2025 9:12 AM EST Height 185.4 cm (6' 1 ) 04/03/2025 9:12 AM EST Body Mass Index 27.05 04/03/2025 9:12 AM EST Plan of Treatment Upcoming Encounters Date Type Department Care Team (Late st Contact Info) Description 10/03/2025 10:00 AM EDT Ancillary Procedure [facility] [address] [place] [address] 03/26/2026 11:00 AM EST Ancillary Procedure [facility] [address] [place] [address] Health Maintenance Due Date Last Done Comments [...] this topic Medical Devices Implanted Type Area Embroidery Worker Device Identifier Shelf Expiration Date Model / Serial / Lot ChevySouleymane Terry 8 Narayan [id number] Implanted: (Quantity not on file) Cardiac Pacemaker Right: Chest [employer] EDORA 8 NARAYAN / [id number] / Procedures Procedure Name Priority Date/Time Associated Diagnosis Comments ECG 12-LEAD Routine 04/03/2025 9:23 AM EST SIENA on CPAP Acute on chronic diastolic heart failure (CMS/HCC V24, CMS/HCC V28) Aneurysm of ascending aorta without rupture (CMS/HCC V24) Coronary artery disease involving [place] coronary artery of [place] heart without angina pectoris Essential hypertension Dyslipidemia History of mechanical aortic valve replacement CARDIAC DEVICE CHECK- IN CLINIC- [facility] Routine 03/23/2025 12:56 PM EST Encounter for adjustment or management of cardiac device CARDIAC DEVICE CHECK- REMOTE- [facility] Routine 03/18/2025 6:09 AM EST COMPREHENSIVE METABOLIC PANEL Routine 03/30/2024 11:52 AM EST from Last 3 Months or Most Recently Relevant to Health Maintenance Results * ECG 12 lead (04/03/2025 9:23 AM EST) Ventricular Rate ECG 72 BPM GEMUSE Atrial Rate 68 BPM GEMUSE QRS Duration 202 ms GEMUSE Q-T Interval 506 ms GEMUSE QTc 554 ms GEMUSE R [place] -66 degrees GEMUSE T [place] 106 degrees GEMUSE ECG Interpretation Ventricular-pac ed rhythm with Atrial fibrillation and occasional PVC's Abnormal ECG When compared with ECG of 16-AUG-2024 13:56, No significant changes are noted Confirmed by MD ENRIQUE, SOLOMON ([id number]) on 04/03/2025 10:46:13 AM GEMUSE 04/03/2025 9:23 AM EST 04/03/2025 10:46 AM EST us Solomon White MD ECG ORDERABLES Final Result GEMUSE * CARDIAC DEVICE CHECK- IN CLINIC- [facility] (03/23/2025 12:56 PM EST) Date Time Interrogation Session [id number] CV DEVICE CHECK Implantable Pulse Generator Embroidery Worker BIO CV DEVICE CHECK Implantable Pulse Generator Type IPG CV DEVICE CHECK Implantable Pulse Generator Model Edora 8 DR-T CV DEVICE CHECK Implantable Pulse Generator Serial Number [id number] CV DEVICE CHECK Implantable Pulse Generator Implant Date 20180329 CV DEVICE CHECK Battery Remaining Longevity 47.0 CV DEVICE CHECK Battery Status Middle of Service CV DEVICE CHECK Ronak Statistic RA Percent Paced 1.00 CV DEVICE CHECK Ronak Statistic RV Percent Paced 69.00 CV DEVICE CHECK Atrial Tachy Statistic AT/AF [place] Percent 100.00 CV DEVICE CHECK Lead Channel [...] and tested * Presenting Rhythm: AF - BASKET WEAVER 60's * Underlying Rhythm: AF (CHB) 30 - 50's * Heart Rate Histograms reviewed * Pacing and Detection Parameters were evaluated * Autocapture turned off d/t recurring high-outputs in both leads after failed autocapture tests (AF) Narrative Procedure Note Solomon Wolfe MD - 03/25/2025 IMPRESSION: Normal In-Office: No Events * Normal Device Function * Alerts or events: Pt in persistent (perm?) AF; mainly controlled * Battery: MOS, 3 years 11 months * Sensing, impedance and thresholds reviewed and tested * Presenting Rhythm: AF - BASKET WEAVER 60's * Underlying Rhythm: AF (CHB) 30 - 50's * Heart Rate Histograms reviewed * Pacing and Detection Parameters were evaluated * Autocapture turned off d/t recurring high-outputs in both leads afterfailed autocapture tests (AF) us Order Referral Cardiovascular CV IMPLANTABLE CAR DIAC DEVICE PROCEDURES Final Result * Cardiac device check - Remote- [facility] (03/18/2025 6:09 AM EST) Date Time Interrogation Session [id number] CV DEVICE CHECK Type Interrogation Session RemoteScheduled CV DEVICE CHECK Implantable Pulse Generator Embroidery Worker BIO CV DEVICE CHECK Implantable Pulse Generator Type IPG CV DEVICE CHECK Implantable Pulse Generator Model Edora 8 DR-T CV DEVICE CHECK Implantable Pulse Generator Serial Number [id number] CV DEVICE CHECK Implantable Pulse Generator Implant Date 20180329 CV DEVICE CHECK Battery Remaining Percentage 40.00 CV DEVICE CHECK Battery Status Middle of Service CV DEVICE CHECK Ronak Statistic RA Percent Paced 2.00 CV DEVICE CHECK Ronak Statistic RV Percent Paced 70.00 CV DEVICE CHECK Atrial Tachy Statistic AT/AF [place] Percent 100.00 CV DEVICE CHECK Lead Channel [...] Narrative Procedure Note Solomon Wolfe MD - 03/18/2025 IMPRESSION: Normal Remote: [...] AM EST Performed at: 01 - [facility] [address] [id number] Icebox Man: Jannie Hughes MD, Phone: [phone] us Solomon White MD LAB BLOOD ORDERABLES Final Res ult [facility] 1 from Last 3 Months or Most Recently Relevant to Health Maintenance Insurance [employer] MEDICARE Care Teams Rod And Tube Straightener Relationship Specialty Start Date End Date Joey Shetty MD [address] [place] [address] Dr [address] [facility] [place] [address] PCP - General 08/03/13
--- OUTSIDE RECORDS SUMMARY | 2025-04-13 20:25 | XMS_ITS | Patient Health Record ---
[facility] Address [address] [facility] [place] [address] Care Team Providers Care Guide Changer Name Role Phone Joey Shetty Primary Care Provider Lilian Augustin Unavailable [phone] Allergies No Known Allergies Reason For Referral No Information Medications Medication SIG (Take, Route, Frequency, Duration) Notes Start Date End Date Status Meloxicam 7.5 MG (Prior Auth#:[id number]) Oral; Duration: 45 Active Spiriva Respimat 2.5 MCG/ACT (Prior Auth#:[id number]) Inhalation; Duration: 30 Not-Jose ing Metoprolol Tartrate 75 MG 1 tablet with food Orally Twice a day; Duration: 30 day(s) Active Humira Not-Taking Nebulizer Active Medrol 4 MG as directed Orally 02/22/2021 Not-Taking Propranolol HCl 10 MG (Prior Auth#:[id number]) Oral; Duration: 90 Active Taltz 40 MG/0.5ML 1 mL Subcutaneous Active Albuterol Sulfate HFA 108 (90 Base) MCG/ACT (Prior Auth#:[id number]) Inhalation; Duration: 30 Active Aspirin Low Dose 81 MG (Prior Auth#:[id number]) Oral; Duration: 90 Active Amantadine HCl 100 MG Oral; Duration: 90 Days Active Atorvastatin Calcium 40 MG (Prior Auth#:[id number]) Oral; Duration: 90 Active Furosemide 20 MG as directed Orally O nce a day Not-Taking Carbidopa-Levodopa 25-100 MG (Prior Auth#:[id number]) Oral; Duration: 90 Active Advair Diskus 250-50 MCG/DOSE (Prior Auth#:[id number]) Inhalation; Duration: 90 Not-Jose ing dilTIAZem HCl ER Beads 180 MG 1 capsule Orally Once a day; Duration: 30 day(s) Not-Jose ing Warfarin Sodium 7.5 MG (Prior Auth#:[id number]) Oral; Duration: 90 Active Otezla 30 MG (Prior Auth#:[id number]) Oral; Duration: 90 Not-Taking Bumetanide 2 MG 1 tablet Orally Once a day Active Magnesium Oxide 400 (241.3 Mg) MG (Prior Auth#:[id number]) Oral; Duration: 90 Active Rosuvastatin Calcium 20 MG (Prior Auth#:[id number]) Oral; Duration: 90 Not-Taking Trelegy Ellipta Acti ve Isosorbide Mononitrate ER 30 MG (Prior Auth#:[id number]) Oral; Duration: 90 Active Immunizations Vaccine Route [...] atherosclerosis of arteries of lower limbs (disorder) ([id number] ) Atherosclerosis of [place] artery of both lower extremities, with unspecified presence of clinical manifestation (I70.203) Active confirmed Q7(A), Q8(2B), Q9(1B,2 C) Vital Signs Blood pressure diastolic 74 mm Hg 02/28/2025 Height 6ft1in in 02/28/2025 Blood pressure systolic 120 mm Hg 02/28/2025 Weight 205 lbs 02/28/2025 BMI 27.04 kg/m2 02/28/2025 Encounters Encounter Location Date Provider Diagnosis [address] [address] 06/17/2024 Lilian Perica Atherosclerosis of kar[place] artery of both lower extremities, with unspecified presence of clinical manifestation I70.203 ; Peripheral vascular disease I73.9 ; Tinea unguium B35.1 ; Pain in right toe(s) M79.674 and Pain in left toe(s) M79.[address] [address] 09/09/2024 Lilian Perica Atherosclerosis of [place] artery of both lower extremities, with unspecified presence of clinical manifestation I70.203 ; Tinea unguium B35.1 ; Pain in right toe(s) M79.674 and Pain in left toe(s) M79.[address] [address] 12/02/2024 Lilian Perica Atherosclerosis of kar[place] artery of both lower extremities, with unspecified presence of clinical manifestation I70.203 ; Tinea unguium B35.1 ; Pain in right toe(s) M79.674 and Pain in left toe(s) M79.[address] [address] 02/28/2025 Lilian Perica Atherosclerosis of kar[place] artery of both lower extremities, with unspecified presence of clinical manifestation I70.203 ; Tinea unguium B35.1 ; Pain in right toe(s) M79.674 and Pain in left toe(s) M79.675 Assessments Encounter Date Diagnosis (ICD Code) Assessment Notes Treatment Notes Treatment Clinical Notes Section Notes 06/17/2024 Peripheral vascular disease (ICD-10 - I73.9) 06/17/2024 Atherosclerosis of kar[place] artery of both lower extremities, with unspecified presence of clinical manifestation (ICD-10 - I70.203) Q7(A), Q8(2B), Q9(1B,2C) 09/09/2024 Tinea unguium (ICD-10 - B35.1) 09/09/2024 Atherosclerosis of [place] artery of both lower extremities, with unspecified presence of clinical manifestation (ICD-10 - I70.203) Q7(A), Q8(2B), Q9(1B,2C) 12/02/2024 Atherosclerosis of [place] artery of both lower extremities, with unspecified presence of clinical manifestation (ICD-10 - I70.203) Q7(A), Q8(2B), Q9(1B,2C) 02/28/2025 Atherosclerosis of kar[place] artery of both lower extremities, with unspecified presence of clinical manifestation (ICD-10 - I70.203) Q7(A), Q8(2B), Q9(1B,2C) 02/28/2025 Tinea unguium (ICD-10 - B35.1) 12/02/2024 Tinea unguium (ICD-10 - B35.1) 09/09/2024 Pain in right toe(s) (ICD-10 - M79.674) 06/17/2024 Tinea unguium (ICD-10 - B35.1) 06/17/2024 [...] Details Provider Name:Lilian ferris, 06/06/2025 11:00:00 AM, [address] [place] [address], [place], [address], Insurance Providers Payer Name Payer Address Payer Phone Subscriber Number Group Number Insured Name Patient Relationship to Insured Coverage Start Date Coverage End Date [employer] Medicare [id number] [address] [address] [place] [address] [id number] Eddie Styles Self - patient is the insured Medical (General) History Medical History History ICD Code Anxiety Heart disease Lung disease Psoriasis/eczema Measles Chicken pox Mumps Vascular grafts Joint implants/screws Replacement Heart Valves Surgical History Surgery Date(Month/Year) aortic valve 08/1996 colonoscopy 05/31/21 Hospitalization History Reason Date(Month/Year) [facility]- Having trouble breathing and retaining fluids - atypical pneumonia 06/03
--- OUTSIDE RECORDS SUMMARY | 2025-04-13 20:25 | XMS_ITS | Data Portability ---
Author Organization [place] - [facility], Allergy Address [address] [place] [address] Care Team Providers Care Manager Property Name Role Phone HUE STEWART Primary Care Provider Assessment No assessment recorded. Plan of Treatment Reminders Order Date Submit Date Provider Last Modified By Organization Details Last Modified Time Details Appointments Hearing Test Same Day (First) 2025 01:00P M Hearing Test Not available Not available Not available Establish ed 30 2025 01:30P M JOEL Rojas MD Not available Not [...] record ed. BARCODE Not Available 2023 16:54:12 04/10/20 25 audio gram No observ ation record ed. BARCODE Not Available 2024 16:31:46 Result Notes None recorded. Problems Name Problem SNOMED Code Status Onset Date Resolution Date Notes Provider Name and Address Organization Details Recorded Time Sensorineural hearing loss of bilateral ears 464610453 Active 2023 JOEL Rojas MD [address], [address] [place] [facility] 09:33:49 Sensorineural hearing loss of bilateral ears 091423209 Active 2024 CARLOZ GRIFFIN, [facility] [address] [place], [address], [facility] 10:29:08 Problem Notes None recorded. Procedures Surgical History Date Name Laterality Status Provider Name and Address Organization Details Recorded Time 04/10/2025 Air & Speech Audio with Tymps - 39424, 17399 & 77163 completed CARLOZ GRIFFIN, AUD 100 [facility],[address] [address], [place], [address], [facility] 04/10/2025 10:28:58 04/11/2024 Comp Audio with Tymps - 20621 & 15249 completed CARLOZ GRIFFIN, [facility] [address] [address], [place], [address], [facility] 04/11/2024 09:52:08 Imaging Results None recorded. Procedure Notes None recorded. Medical Equipment None Reported. Allergies No known drug allergies Medications Name Sig Start Date Stop Date Status Note LastModified by Organization Details LastModified Time amoxicillin 500 mg capsule TAKE 4 CAPSULES BY MOUTH 1 HOUR BEFORE PROCEDURE FOR 1 DAY active Not Available Not Available No t Available latanoprost 0.005 % eye drops INSTILL ONE DROP IN BOTH EYES EVERY NIGHT AT BEDTIME. active Not Available Not Available No t Available atorvastati n 40 mg tablet active Not Available Not Available Not Available prednisone 10 mg tablet TAKE 4 TABLETS DAILY X2DAYS, 3 TABS DAILY X 2DAYS, 2 TABLETS DAILY X 2DAYS, THEN 1 TAB DAILY X 2DAYS active Not Available Not Available No t Available doxycycline hyclate 100 mg capsule TAKE 1 CAPSULE BY MOUTH TWICE A DAY active Not Available Not Available No t Available ipratropium 0.5 mg-albutero l 3 mg (2.5 mg base)/3 mL nebulizatio n soln active Not Available Not Available Not Available bumetanide 2 mg tablet TAKE 1 TABLET(2 MG) ONCE PER DAY. PLEASE TAKE 30 MINUTES AFTER TAKING YOUR DAILY METOLAZON E. active Not Available Not Available No t Available warfarin 7.5 mg tablet active Not Available Not Available Not Available prednisone 20 mg tablet TAKE 1 TABLET BY MOUTH TWICE A DAY active Not Available Not Available No t Available isosorbide mononitrate ER 30 mg tablet,exte nded release 24 hr active Not Available Not Available Not Available sulfasalazi ne 500 mg tablet,danyelle yed release TAKE 1 TABLET (500 MG) BY MOUTH TWICE DAILY. LABS DUE IN 1 MONTH active Not Available Not Available No t Available metolazone 5 mg tablet TAKE 1 TABLET BY MOUTH DAILY TAKE 30 MINUTES PRIOR TO BUMEX DOSE active Not Available Not Available No t Available allopurinol 100 mg tablet active Not Available Not Available Not Available aspirin 81 mg tablet,danyelle yed release active Not Available Not Available Not Available isosorbide mononitrate ER 60 mg tablet,exte nded release 24 hr active Not Available Not Available Not Available propranolol 10 mg tablet active Not Available Not Available Not Available potassium chloride ER 20 mEq tablet,exte nded release(par t/cryst) TAKE 1 TABLET (20 MEQ) BY MOUTH ONCE DAILY active Not Available Not Available No t Available benzonatate 100 mg capsule TAKE 1 CAPSULE EVERY 8 HOURS NEEDED FOR COUGH active Not Available Not Available No t Available warfarin 5 mg tablet TAKE 1 TABLET BY MOUTH AT BEDTIME ONCE DAILY active Not Available Not Available No t Available metoprolol tartrate 50 mg tablet active Not Available Not Available No t Available budesonide 0.5 mg/2 mL suspension for nebulizatio n active Not Available Not Available Not Available allopurinol 300 mg tablet active Not Available Not Available Not Available mupirocin 2 % topical ointment APPLY TOPICALLY 3 TIMES A DAY 04/07 completed Not Available Not Available Not Available methylpredn isolone 4 mg tablets in a dose pack TAKE 6 TABLETS ON DAY 1 DIRECTED ON PACKAGE AND DECREASE BY 1 TAB EACH DAY FOR A TOTAL OF 6 DAYS active Not Available Not Available No t Available albuterol sulfate HFA 90 mcg/actuati on aerosol inhaler active Not Available Not Available Not Available carbidopa 25 mg-levodopa 100 mg tablet active Not Available Not Available Not Available doxycycline hyclate 100 mg tablet TAKE 1 TABLET BY MOUTH TWICE A DAY FOR 10 DAYS 04/07 completed Not Available Not Available Not Available formoterol fumarate 20 mcg/2 mL solution for nebulizatio n INHALE ONE VIAL IN NEBULIZER TWICE A DAY active Not Available Not Available No t Available potassium chloride ER 20 mEq tablet,exte nded release TAKE 1 TABLET BY MOUTH EVERY DAY WITH FOOD FOR 30 DAYS active Not Available Not Available No t Available Taltz Autoinjecto r 80 mg/mL subcutaneou s active Not Available Not Available Not Available Humira(CF) Pen 40 mg/0.4 mL subcutaneou s kit active Not Available Not Available Not Available Bernardino Ellipta 200 mcg-62.5 mcg-25 mcg powder for inhalation active Not Available Not Available N ot Available Vitals Date Recorded Body height Body mass index (BMI) Body weight Provider Name and Address Organization Details Last Updated DateTime 04/10/2025 185.42 cm 31 kg/m2 530787.21 g Kevin Rich [place] - [facility] 04/10/2025 10:16:25 Date Recorded Body height Body mass index (BMI) Body weight Provider Name and Address Organization Details Last Updated DateTime 04/11/2024 185.42 cm 31 kg/m2 945857.21 g Kevin Rich [facility] 04/11/2024 09:21:01 Social History Question Answer Notes LastModified by Organizat ion Details LastModified Time Tobacco Smoking Status Former Smoker Kevin looney [place] - [facility] 04/11/2024 09:13:08 How Many Years Have You Consumed Alcohol? 40 Information not available 04/10/2025 What Type Of Dedicated Intermodal Truck Driver Do You Use? None Information not available 04/10/2025 How Many Alcoholic Drinks Do You Consume Per Day On Average? 1 Information not available 04/10/2025 When Did You Quit Smoking? 16+yearssinc elastcigaret te Information not available 04/10/2025 What Is Your Current Pack Years? 10packyears Information not available 04/10/2025 Do You Have Any Pets? No Information not available 04/10/2025 At What Age Did You Start Smoking Tobacco? 15 Information not available 04/10/2025 Are You Passively Exposed To Smoke? No Information not available 04/10/2025 Are There Any Smokers In Your House? No Information not available 04/10/2025 How Much Tobacco Do You Smoke? No Information not available 04/10/2025 How Many Years Have You Smoked Tobacco? 6 Information not available 04/10/2025 Sex: Unknown Functional Status Question Answer Note LastModified by Organization Details LastModified Time How many times per week do you consume alcohol? 1-2 times per week Information not available 04/10/2025 Do you use any illicit or recreational drugs? No Information not available 04/10/2025 Do you or have you ever used any other forms of tobacco or nicotine? No Information not available 04/10/2025 What is your level of alcohol consumption? Occasional Information not available 04/10/2025 What type of noise exposure are you exposed to? noExposureToExcessiveNoise Infor mation not available 04/10/2025 Mental Status None recorded. Family History Nothing Reported. Medical History Condition Response Tonsil Infections N Emphysema N Glaucoma Y Depression N COPD Y Nasal or Sinus Problems N Anesthesia Complications N Arthritis Y Hearing Loss N Cancer N Stroke N High Cholesterol N Liver Disease N Headaches N Fibromyalgia N Speech Delay N Kidney Disease N Allergies/Hayfever Y Heart Problems Y Anxiety N Migraines N Thyroid Problems N Developmental Delay N Anemia N Immune System Disorder N Heart Attack (MN) Y Other Skin Condition Y Diabetes N Rhinitis N Bleeding Disorder N Food Allergy N Hyperlipidemia N Dementia N Nasal polyps N Asthma N Sleep Disorder N GERD/Reflux N Hypertension N Past Encounters Encounter ID Performer Location Encounter Start Date Encounter Closed Date Diagnosis/Indication Diagnosis SNOMED-CT Code Diagnosis ICD10 Code Diagnosis IMO Codes Diagnosis Note [id number] JOEL ANDERSON MD [facility] on [address] [place] [phone] 04/11/2024 08:53:39 04/11/2024 10:11:29 Sensorineural hearing loss of bilateral ears 074126495 H90.3 Rechecked audio today (Pringle and Rinlarry were normal).Au diological evaluation results: 04/11/2024 ight [...] to call with any sudden hearing changes. [id number] JOEL ANDERSON MD [facility] on [address] [facility] [place] [address] 04/10/2025 10:11:52 04/10/2025 10:44:46 Sensorineural hearing loss of bilateral ears 332751387 H90.3 [id number] Rechecked audio today (Pringle and Rinne were normal).Au diological evaluation results: 04/10/2025R ight ear:Normal sloping to a moderate sensorineu ral hearing loss above 3K Hz with excellent word recognitio n.Left ear:Normal through 2 kHz sloping to moderately severe sensorineu ral hearing loss with excellent word recognitio n. Tympanomet ry:Right Ear:Type ALeft Ear:Type A Hearing loss is mostly stable. It is slightly less asymmetric . We will defer an MRI and plan on serial audiograms . I asked him to call with any sudden hearing changes. Health Concerns Section Related Observation LastModified by Organization Detai ls LastModified Time None Recorded Concern Status LastModified by Organization Details LastModified Time None Recorded Advance Directives Directive None Recorded Payers Insurance Date Sequence Insurance Name Policy Number Policy Vivas Covered Member ID Vivas Member ID Guarantor Name 04/10/2025 1 [facility] (MEDICARE REPLACEMENT/A DVANTAGE - PPO) [id number] Eddie Styles [id number] Eddie Styles Notes Date Note Type Note [...] despite this hearing loss. JOEL ANDERSON MD [address] [place] [address], [phone], [facility] - [facility] 04/11/2024 10:10:32 04/10/2025 text/html ROS as noted in the HPI He is not aware of hearing loss. He had an audio 10/2023 which showed HF SNHL AU, worse . Repeat audiogram today demonstrated fairly stable hearing. In fact the hearing appears more symmetric than on the last visit due to some decline in the right ear. Denies tinnitus. He feels he gets by well despite this hearing loss. JOEL ANDERSON MD [address] [place] [address], [place], [address], [facility] - [facility] 04/10/2025 10:45:54
--- OUTSIDE RECORDS SUMMARY | 2025-04-13 20:26 | XMS_ITS | Continuity of Care Document ---
Author Organization [place] - [facility], [facility] Address [address] [place] [address] Care Team Providers Care Bariatric Physician Name Role Phone TERRY HUE Primary Care Provider Assessment No assessment recorded. Plan of Treatment Reminders Order Date Submit Date Provider Last Modified By Organization Details Last Modified Time Details Appointments Hearing Test Same Day (First) 2025 01:00P M Hearing Test Not available Not available Not available Establish ed 30 2025 01:30P M JOEL oRjas MD Not available Not available Not available Lab None recorded. Referral None recorded. Procedures None recorded. Surgeries None recorded. Imaging None recorded. Medication Orders None recorded. Patient TargetsNo targets recorded. Patient InstructionsNo instructions recorded. Reason for Referral None Reported. Results Created Date Observation Date Name Description Value Unit Range Abnormal Flag Note LastModifiedBy Organization Detail LastModifiedTime 04/10/20 25 audio gram No observ ation record ed. BARCODE Not Available 2024 16:31:46 Result Notes None recorded. Problems Name Problem SNOMED Code Status Onset Date Resolution Date Notes Provider Name and Address Organization Details Recorded Time Sensorineural hearing loss of bilateral ears 517429801 Active 2023 JOEL Rojas MD [address] [address], [place], [address], [facility] - [facility] 09:33:49 Sensorineural hearing loss of bilateral ears 647428404 Active 2024 [facility] [address] [address], [place], [address], [place] - [facility] 10:29:08 Problem Notes None recorded. Procedures Surgical History Date Name Laterality Status Provider Name and Address Organization Details Recorded Time 04/10/2025 Air & Speech Audio with Tymps - 64590, 28055 & 41604 completed CARLOZ GRIFFIN, AUD [address], [place], [address], [facility] 04/10/2025 10:28:58 04/11/2024 Comp Audio with Tymps - 34316 & 50102 completed CARLOZ GRIFFIN, AUD [address], [place], [address], [facility] 04/11/2024 09:52:08 Imaging Results None recorded. [...] Updated DateTime 04/10/2025 185.42 cm 31 kg/m2 980636.21 g Kevin Rich [place] - [facility] 04/10/2025 10:16:25 Social History Question Answer Notes LastModified by Organizat ion Details LastModified Time Tobacco Smoking Status Former Smoker Kevin looney [facility] 04/11/2024 09:13:08 How Many Years Have You Consumed Alcohol? 40 Information not available 04/10/2025 What Type Of Administrative Appeals Tribunal Member Do You Use? None Information not available [...] History Nothing Reported. Medical History Condition Response Allergies/Hayfever Y Heart Problems Y Anxiety N Tonsil Infections N Emphysema N Migraines N Thyroid Problems N COPD Y Depression N Developmental Delay N Glaucoma Y Nasal or Sinus Problems N Anemia N Immune System Disorder N Anesthesia Complications N Heart Attack (SD) Y Other Skin Condition Y Diabetes N Rhinitis N Bleeding Disorder N Food Allergy N Hearing Loss N Arthritis Y Hyperlipidemia N Cancer N Stroke N Dementia N Nasal polyps N Asthma N Sleep Disorder N High Cholesterol N GERD/Reflux N Liver Disease N Headaches N Fibromyalgia N Hypertension N Speech Delay N Kidney Disease N Past Encounters Encounter ID Performer Location Encounter Start Date Encounter Closed Date Diagnosis/Indication Diagnosis SNOMED-CT Code Diagnosis ICD10 Code Diagnosis IMO Codes Diagnosis Note [id number] JOEL ANDERSON MD [facility] on [address] [place] [phone] 04/10/2025 10:11:52 04/10/2025 10:44:46 Sensorineural hearing loss of bilateral ears [id number] H90.3 [id number] Rechecked audio today (Pringle and Rinne were [...] by Organization Details LastModified Time None Recorded Payers Encounter Date Sequence Insurance Name Policy Number Policy Vivas Covered Member ID Vivas Member ID Guarantor Name 04/10/2025 1 [facility] (MEDICARE REPLACEMENT/A DVANTAGE - PPO) [id number] Eddie Styles [id number] Eddie Styles Notes Date Note Type Note Provider Name and Address Organization Details Recorded Time 04/10/2025 text/html ROS as noted in the [...] despite this hearing loss. JOEL ANDERSON MD [address] [place] [address], [place], [address], [facility] - [facility] 04/10/2025 10:45:54
== END 2025-04-13 15:15 | disposition home or self-care (01) ==
LOC: HO.HPS 14:34
PROVIDERS: PCP Internal Medicine; Visit Provider Hospitalist
DX: J41.8 Mixed simple and mucopurulent chronic bronchitis (principal); J84.10 Pulmonary fibrosis, unspecified; R91.8 Other nonspecific abnormal finding of lung field; J98.4 Other disorders of lung
CPT/HCPCS: 99214; G2211

== ENCOUNTER → 2025-04-13 14:34 | Outpatient (BNVA) | payer MEDICARE, SELFPAY | PROVIDERS: PCP Internal Medicine; Visit Provider Hospitalist | DX: J41.8 Mixed simple and mucopurulent chronic bronchitis (principal); J84.10 Pulmonary fibrosis, unspecified; R91.8 Other nonspecific abnormal finding of lung field; J98.4 Other disorders of lung | CPT/HCPCS: 99212 ==

== ENCOUNTER 2025-05-01 10:04 | Outpatient (AMB) | payer MEDICARE, SELFPAY ==
--- NOTE | 2025-05-01 11:05 | AM.OFFWIN_ITS ---
Intake Vital Signs 05/01/25 11:06 Height 6 ft 1 in Weight 204 lb BMI 26.9 BP 116/70 Blood Pressure Location Lt brachial Position Sitting Pulse 85 Pulse Source Pulse Oximeter Temp 97.7 F Temp Source Oral Pulse Oximetry (%) 95 Oxygen Delivery Method Room Air Intake Visit Reasons: EP lt foot swelling/pain Intake Note: pt presents with left foot pain and swelling for about a week- Dr Curran joint cutter machine prescrived prednisone from thursday to current Patient Tobacco Use Status: Former Tobacco user Allergies rosuvastatin Allergy (Severe, Verified 05/01/25 11:11) muscle aches Do you need a note to return to daycare/school/sports/work: No HPI HPI Comments History of Present Illness Details 69 y/o Male presents to the walk-in clin ic with c/o left lower extremity swelling and pain. Patient has a history of Psoriatic arthritis and gout, previously presenting with bilateral foot swelling and pain. Current medications include Taltz, Sulfasalazine (SSZ), and Allopurinol. Patient is followed by Rheumatology (Dr. Curran). Patient reports contacting Dr. Curran last Thursday and was prescribed a prednisone taper; he is currently on day 3. Pain is worsening, with left foot swelling. Pain localized mainly to the ball of the left big toe, exacerbated by walking and standing. [facility] Medical History Hearing deficit Chronic restrictive lung disease Pulmonary nodules Syncope Essential tremor Hypercholesterolemia Hypertension Coronary artery disease COPD (chronic obstructive pulmonary disease) Aortic aneurysm Pulmonary fibrosis Surgical History S/P placement of cardiac pacemaker Aortic valve replaced History of aneurysm History of heart artery stent History of open reduction and internal fixation (ORIF) procedure Family History Mother No problems noted. Father No problems noted. Social History Housing: House Alcohol intake: current Alcohol intake frequency: a few times a week Alcohol type: beer Comment: 2x a week 1-2 drinks Patient Tobacco Use Status: Former Tobacco user Tobacco use type: Cigarette Years Smoked: quit 1996 e-Cigarette/Vaping Use: Never Used Second Hand Smoke Exposure: No service: No Current occupational status: employed Cognitive needs: No Hearing needs: No Vision needs: Yes Review of Systems Const All systems reviewed & are unremarkable except as noted in HPI and below Physical Exam Vital Signs: Last Vital Signs Temp 97.7 F 05/01/25 11:06 Pulse 85 05/01/25 11:06 BP 116/70 05/01/25 11:06 Pulse Ox 95 05/01/25 11:06 Oxygen Delivery Method Room Air 05/01/25 11:06 BMI result Body Mass Index 26.9 Const General: no acute distress Nutritional Appearance: well nourished Orientation/consciousness: patient oriented x3 Neuro General: patient oriented x3 Extrem Other: Left Foot: Swelling noted at the forefoot/ball of the big toe, tenderness on palpation, warmth present. Assessment & Plan Assessment & Plan (1) Psoriatic arthritis: Code(s): L40.50 - Arthropathic psoriasis, unspecified Plan: Acute gout flare vs. Psoriatic arthritis flare of the left big toe/forefoot. History of chronic gout and Psoriatic arthritis on disease-modifying therapy. Continue prednisone taper as prescribed. Continue Allopurinol and DMARDs (Taltz, SSZ) as per rheumatology plan. Symptomatic relief: Ice, elevation of affected foot, and Acetaminophen Monitor for worsening pain, redness, or signs of infection. Follow-up with Rheumatology (Dr. Curran) for flare management and potential medication adjustment. Pt to call Dr. Curran's Office Tomorrow. Coding Level of Care Code Est Pt Level 4 (97716) Diagnoses Psoriatic arthritis L40.50 Time Spent (min) 20
[2025-05-01 11:06] VITALS: BP 116/70; PULSE 85; TEMP 36.5; O2SAT 95; BMI 26.9
--- OUTSIDE RECORDS SUMMARY | 2025-05-01 12:06 | XMS_ITS | Patient Health Record ---
Author Organization [facility] Susie benavidez Billing Info Address [address] [place] [id number] Phone [phone] Care Team Providers Care Pump House Operator Name Role Phone FERGUSON BOGDAN MEJIA Primary Care Provider [phone] Allergies No Known Allergies Reason For Referral No Information Medications Medication SIG (Take, Route, Frequency, Duration) Notes Start Date End Date Diagnosis (ICD Code) Status Allopurinol 100 MG Tablet 1 tablet Orally Twice a day Active Isosorbide Mononitrate ER 60 MG Tablet Extended Release 24 Hour 1 tablet in the morning Orally Once a day take with 30 mg tablet to equal 90 mg total daily Active Isosorbide Mononitrate ER 30 MG Tablet Extended Release 24 Hour 1 tablet in the morning Orally Once a day take with 60 mg tablet to equal 90 mg total daily Active Metolazone 5 MG Tablet 1 tablet Orally Once a day take on tablet 30 minutes prior to taking bumex Active Magnesium Oxide 400 MG Tablet 1 tablet Orally Twice a day Active Atorvastatin Calcium 40 MG Tablet 1 tablet Orally Once a day Active Aspirin 81 81 MG Tablet Delayed Release 1 tablet Orally Once a day Active Bumetanide 2 MG Tablet 1 tablet Orally Once a day; Duration: 90 days Acute heart failure with preserved ejection fraction (HFpEF) (ICD_10 - I50.31) Active Warfarin Sodium 5 MG Tablet 1 tablet Orally Once a day Active Budesonide 0.5 MG/2ML Suspension 1 mL Inhalation Twice a day pulmicort Active Vitamin D3 50 MCG (1999) Capsule 1 capsule Orally Once a day Active Sinemet 25-100 MG Tablet 2 tablets Orally Three times a day Active Perforomist 20 MCG/2ML Nebulization Solution 2 mL Inhalation Twice a day; Duration: 90 days Active Metoprolol Tartrate 75 MG Tablet 1 tablet with food Orally Twice a day Active Propranolol HCl 10 MG Tablet 1 tablet Orally Twice a day Active Potassium Chloride ER 20 MEQ Tablet Extended Release 1 tablet with food Orally twice per day; Duration: 90 days Hypokalemia (ICD_10 - E87.6) Active Immunizations Status Vaccine Route Administration Date Visit Date Comments Administered FLU (Past vaccine of unknown type) Unknown 04/10/2023 ZOSTER (Past vaccine of unknown type) Unknown Social History Tobacco Use: Social History Observation Description Date Details (start date - stop date) Unknown if ever smoked NA - NA Sex Observation Social History Observation Description Sex Observation Male Social History Social History Social Info Question Answer Notes Tobacco Status: Patient is unknown if ever smoked Illicit Drug Use: Patient/Family reports: No illicit d rug use Alcohol Use: Patient does not use alcohol Ambulatory Status: : is independent Problems Problem Type SNOMED Code ICD Code Dates Problem Status W/U Status Risk Notes Problem Obesity (051920624) Obesity (BMI 30-39.9) (E66.9) Added On: Active confirmed Problem Overweight (873538128) Overweight (BMI 25.0-29.9) (E66.3) Added On: Active confirmed Plan Of Treatment Pending Test Test Name Order Date BASIC METABOLIC PANEL([facility]-CHEM[facility]) 2023 Future Test Test Name Order Date Basic Metabolic Panel (8) ([id number] ) 05/20/2023 Basic Metabolic Panel (8) ([id number] ) 06/10/2023 Basic Metabolic Panel (8) ([id number] ) 07/22/2023 Insurance Providers Payer Name Payer Address Payer Phone Subscriber Number Group Number Insured Name Patient Relationship to Insured Coverage Start Date Coverage End Date [facility] MED[facility] [id number] [address] [address] [place], [place] [id number] Eddie Gaston Self - patient is the insured 4 Medical (General) History Medical History History ICD [...] Ejection Fr action COPD 05/14/2022 [facility] Cardiac Ech o: Left ventricle: Normal global systolic left ventricular function. Ejection fraction was estimated in the range of 50% to 55%. Regional wall motion was normal. Diastolic function was indeterminate due to absence of NSR. Surgical History Surgery Date(Month/Year) Aortic Valve Mechanical Replacement Hospitalization History Reason Date(Month/Year) [facility] worsening dyspnea on e xertion and rest, atypical PNA, Afib, COPD 05/28/2023 [facility] COPD exacerbation, CHF exacerbatio n 05/12/2023
--- OUTSIDE RECORDS SUMMARY | 2025-05-01 12:06 | XMS_ITS | Clinical Summary ---
Author Organization [facility] Address [address] [place] [address] Phone Care Team Providers Care Fly Rail Operator Name Role Phone Joey Shetty MD Primary Care Provider [phone] Allergies No known active allergies Medications isosorbide [...] mcg (1,000 unit) capsule Take by mouth. Active aspirin 81 mg chewable tablet Take 81 mg by mouth daily. Active atorvastatin (LIPITOR) 40 mg tablet Take 40 mg by mouth daily. Active warfarin (COUMADIN) 7.5 mg tablet Take 7.5 mg by mouth daily. [facility] [place] Active propranoloL (INDERAL) 10 mg tablet Take 10 mg by mouth 2 times daily. Active ixekizumab (Taltz Syringe) 80 mg/mL syringe Inject 1 mL (80 mg total) under the skin every 28 (twenty-eight ) days. Active carbidopa-levodop a (PARCOPA) 25-100 mg per disintegrating tablet Dissolve [...] Tablet may be swallowed whole (do not crush/chew/singh ck on) OR broken in half and each half swallowed separately OR dissolved (whole tablet) in ~4 ounces of water (allow ~2 minutes to dissolve, stir well and administer immediately). Active fluticasone-umecl idinium-vilantero l (Trelegy Ellipta) 200-62.5-25 mcg inhaler Inhale 1 puff (200 mcg total) by mouth 1 (one) time each day. Rinse mouth with water after use to reduce aftertaste and incidence of candidiasis. Do not swallow. Active Farxiga 10 mg tabletIndications :Acute on chronic diastolic heart failure (CMS/HCC V24, CMS/HCC V28) TAKE 1 TABLET BY MOUTH ONCE DAILY 90 tablet 3 05/01/20 25 Active dapagliflozin propanediol (FARXIGA) 10 mg tabletIndications :Acute on chronic diastolic heart failure (CMS/HCC V24, CMS/HCC V28) Take 1 tablet (10 mg total) by mouth 1 (one) time each day. 90 tablet 3 08/17/19 25 2024 Discontinued Active Problems Problem Noted Date Diagnosed Date Pacemaker 08/21/2024 Overview (08/21/2024): March 29, 2018 status post successful implantation of Biotronik dual-chamber permanent pacemaker due to recurrent syncope with documented prolonged pauses with sick sinus syndrome by Dr. Wolfe at [facility] Assessment & Plan (08/21/2024 9:28 AM [...] Continue with CPAP. Acute on chronic diastolic heart failure 023 Assessment & Plan (04/03/2025 10:21 AM EST): [...] (one) time each day. Persistent atrial fibrillation 11/27/2021 Assessment & Plan (11/14/2024 6:43 PM EDT): Rate is well-controlled and the patient is maintained on warfarin in the setting of a mechanical aortic valve replacement. Assessment & Plan (08/21/2024 9:28 AM EDT): Persistent on last device check. Rate controlled. CHADSVASc 4. On warfarin for mechanical aortic valve. Continue with metoprolol and warfarin. Followed by non [facility] coumadin clinic. Orders: ECG 12 lead Ascending aortic aneurysm 11/13/2020 Overview (08/21/2024): 1996 ascending aortic aneurysm resection [...] and weight management. 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; Essential hypertension; Dyslipidemia; History of mechanical aortic valve replacement 03/23/2025 1:00 PM EST Ancillary Procedure [facility] [address] [place] [address] Encounter for adjustment or management of cardiac device 03/18/2025 6:10 AM EST Ancillary Procedure [facility] [address] [place] [address] from Last 3 Months Medical History Medical [...] on file Sexual Orientation Not on file Last Filed Vital Signs Vital Sign Reading [...] Description 10/03/2025 10:00 AM EDT Ancillary Procedure [facility] [address] [place] [address] 03/26/2026 11:00 AM EST Ancillary Procedure [facility] [address] [place] [address] Health Maintenance Due Date Last Done Comments [...] this topic Medical Devices Implanted Type Area Carpenter Helper Maintenance Device Identifier Shelf Expiration Date Model / Serial / Lot [employer] Mara 8 Narayan [id number] Implanted: (Quantity not on file) Cardiac Pacemaker Right: Chest [employer] EDORA 8 NARAYAN / [id number] / Procedures Procedure Name Priority Date/Time Associated Diagnosis Comments ECG 12-LEAD Routine 04/03/2025 9:23 AM EST SIENA on CPAP Acute on chronic diastolic heart failure (CMS/HCC V24, CMS/HCC V28) Aneurysm of ascending aorta without rupture (CMS/HCC V24) 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 Essential hypertension Dyslipidemia [...] ms GEMUSE QTc 554 ms GEMUSE R [place] -66 degrees GEMUSE T [place] 106 degrees GEMUSE ECG Interpretation Ventricular-pac ed rhythm with Atrial fibrillation and occasional PVC's Abnormal ECG When compared with ECG of 16-AUG-2024 13:56, No significant changes are noted Confirmed by MD ENRIQUE, SOLOMON ([id number]) on 04/03/2025 10:46:13 AM GEMUSE 04/03/2025 9:23 AM EST 04/03/2025 10:46 AM EST us Solomon White MD ECG ORDERABLES Final Result GEMUSE * CARDIAC DEVICE CHECK- [place] [facility] [place] (03/23/2025 12:56 PM EST) Date Time Interrogation Session [id number] CV DEVICE CHECK Implantable Pulse Generator Carpenter Helper Maintenance BIO CV DEVICE CHECK Implantable Pulse Generator Type IPG CV DEVICE CHECK Implantable Pulse Generator Model Edora 8 DR-T CV DEVICE CHECK Implantable Pulse Generator Serial Number [id number] CV DEVICE CHECK Implantable Pulse Generator Implant Date [id number] CV DEVICE CHECK Battery Remaining Longevity 47.0 CV DEVICE CHECK Battery Status Middle of Service CV DEVICE CHECK Ronak Statistic RA Percent Paced 1.00 CV DEVICE CHECK Ronak Statistic RV Percent Paced 69.00 CV DEVICE CHECK Atrial Tachy Statistic AT/AF [place] Percent 100.00 CV DEVICE CHECK Lead Channel [...] and tested * Presenting Rhythm: AF - LOIN TRIMMER 60's * Underlying Rhythm: AF (CHB) 30 [...] and tested * Presenting Rhythm: AF - LOIN TRIMMER 60's * Underlying Rhythm: AF (CHB) 30 - 50's * Heart Rate Histograms reviewed * Pacing and Detection Parameters were evaluated * Autocapture turned off d/t recurring high-outputs in both leads afterfailed autocapture tests (AF) us Order Referral Cardiovascular CV IMPLANTABLE CAR DIAC DEVICE PROCEDURES Final Result * Cardiac device check - Remote- [facility] (03/18/2025 6:09 AM EST) Date Time Interrogation Session [id number] CV DEVICE CHECK Type Interrogation Session RemoteScheduled CV DEVICE CHECK Implantable Pulse Generator Carpenter Helper Maintenance BIO CV DEVICE CHECK Implantable Pulse Generator Type IPG CV DEVICE CHECK Implantable Pulse Generator Model Edora 8 DR-T CV DEVICE CHECK Implantable Pulse Generator Serial Number [id number] CV DEVICE CHECK Implantable Pulse Generator Implant Date 20180329 CV DEVICE CHECK Battery Remaining Percentage 40.00 CV DEVICE CHECK Battery Status Middle of Service CV DEVICE CHECK Ronak Statistic RA Percent Paced 2.00 CV DEVICE CHECK Ronak Statistic RV Percent Paced 70.00 CV DEVICE CHECK Atrial Tachy Statistic AT/AF [place] Percent 100.00 CV DEVICE CHECK Lead Channel [...] AM EST Performed at: 01 - [facility] [address] [id number] Social Worker Palliative Care: Jannie Hughes MD, Phone: [phone] us Solomon White MD LAB BLOOD ORDERABLES Final Res ult [facility] 1 from Last 3 Months or Most Recently Relevant to Health Maintenance Insurance [employer] MEDICARE Care Teams Fly Rail Operator Relationship Specialty Start Date End Date Joey Shetty MD [address] [place] [address] [address] [facility] [place] [address] PCP - General 08/03/13
== END 2025-05-01 12:00 | disposition home or self-care (01) ==
PROVIDERS: PCP Internal Medicine; Visit Provider Nurse Practitioner Family
DX: L40.50 Arthropathic psoriasis, unspecified (principal)

== ENCOUNTER → 2025-05-01 10:04 | Outpatient (BNVA) | payer MEDICARE, SELFPAY | PROVIDERS: PCP Internal Medicine; Visit Provider Nurse Practitioner Family | DX: R22.42 Localized swelling, mass and lump, left lower limb (principal); L40.50 Arthropathic psoriasis, unspecified | CPT/HCPCS: 99212 ==